=== PATIENT | female | born 1960 | race African-American/Black ===

== ENCOUNTER 2017-06-14 10:39 | Inpatient (IN) | payer MEDICARE, OTHER ==
[~2017-06-14] VITALS: Ht 160 cm; Wt 52.0 kg
[2017-06-14] VITALS (11 sets, daily range): BP systolic 102–152; BP diastolic 60–86; PULSE 76–101; RESP 16; TEMP 98.6–98.8; O2SAT 96–100
[~2017-06-14 10:39] MED LIST: BACT2OIN TOP; CEPH500C3 PO; CYCL-36 PO; HYDR-3533 PO; NEPHRO PO; RENA800T PO; [UNRECOGNIZED DRUG - REMARK]; [UNRECOGNIZED DRUG - REMARK]; bp med
[2017-06-14] MEDS ORDERED: SODIUM CHLORIDE 0.9% FLUSH 10 ML FLUSH IVF PRN (11:00)
[2017-06-14] MEDS ORDERED: MORPHINE SULFATE 8 MG/ML INJ IV PUSH ONE (11:00)
--- NOTE | 2017-06-14 11:27 | RADRPT ---
EXAM DATE/TIME: 06/14/2017 10:46 [facility] COMPARISON: No previous studies available for comparison. INDICATIONS : Chest pain MEDICAL HISTORY : Diabetes mellitus type II. Hypertension SURGICAL HISTORY : None. ENCOUNTER: Initial ACUITY: 2 days PAIN SCORE: 8/10 LOCATION: chest FINDINGS: The lungs are clear without infiltrate, nodule, or mass. There is no appreciable pleural effusion fo r technique. There is borderline cardiomegaly.. CONCLUSION: Borderline cardiomegaly. María Elena Hdez MD on June 14, 2017 at 11:24 Board Certified Radiologist. This report was verified electronically.
[2017-06-14 11:39] LABS: AUTOMATED NEUTROPHIL # 2.4 TH/MM3 (1.8-7.7); BASOPHIL % 0.8 % (0.0-2.0); EOSINOPHIL # 0.1 TH/MM3 (0-0.4); EOSINOPHIL % 2.3 % (0.0-4.0); HEMATOCRIT 47.7 % (35.0-46.0); HEMO FLAGS DIFF FINAL; LYMPH % 31.9 % (9.0-44.0); LYMPHOCYTE # 1.5 TH/MM3 (1.0-4.8); MEAN CELL VOLUME 90.9 FL (80.0-100.0); MEAN CORPUSCULAR HEMOGLOBIN 28.6 PG (27.0-34.0); MEAN CORPUSCULAR HGB CONC 31.4 % (32.0-36.0); MONO % 14.1 % (0.0-8.0); NEUT % 50.9 % (16.0-70.0); PLATELET COUNT 185 TH/MM3 (150-450); RED BLOOD COUNT 5.25 MIL/MM3 (4.00-5.30); RED CELL DISTRIBUTION WIDTH 15.8 % (11.6-17.2); WHITE BLOOD COUNT 4.7 TH/MM3 (4.0-11.0)
[2017-06-14 11:58] LABS: ANION GAP 10 MEQ/L (5-15); BICARBONATE 22.7 MEQ/L (21.0-32.0); BLOOD UREA NITROGEN 64 MG/DL (7-18); CHLORIDE 103 MEQ/L (98-107); CREATINE KINASE 133 U/L (26-192); GLOMERULAR FILTRATION RATE 6 ML/MIN (>89); MAGNESIUM 3.2 MG/DL (1.5-2.5); SODIUM (NA) 136 MEQ/L (136-145)
--- NOTE | 2017-06-14 11:59 | PD ---
HPI Chief Complaint: Chest Pain Time Seen by Provider: 10:49 Travel History International Travel<30 days: No Contact w/Intl Traveler<30days: No Traveled to known affect area: No History of Present Illness HPI Patient is a 57 year old female, with history of ESRD (dialyzed MWF), who comes in complaining of chest pain. She says she feels like someone is squeezing her chest. She says she has never had pain like this before. She says it started early this morning and has not gone away. She denies any SOB. She denies nausea or vomiting. She denies cough, cold, fever, or chills. She has not missed dialysis. PFSH Past Medical History Arthritis: Yes Blood Disorders: No Heart Rhythm Problems: No Cancer: No Cardiovascular Problems: Yes (htn) High Cholesterol: No Chemotherapy: No Chest Pain: No Congestive Heart Failure: Yes Diabetes: Yes Dialysis: Yes Diminished Hearing: No Endocrine: Yes ( accuchecks ac&hs) Genitourinary: No Hepatitis: Yes (HEP C) Hypertension: Yes Immune Disorder: No Kidney Stones: No Musculoskeletal: Yes (c/o back pain - ARTHRITIS RELATED) Neurologic: No Psychiatric: No Reproductive: No Respiratory: No Myocardial Infarction: No Radiation Therapy: No Renal Failure: Yes Thyroid Disease: No ?: Not Menopausal: Yes : 3 Para: 3 Past Surgical History Abdominal Surgery: Yes AICD: No Arteriovenous Shunt: No Cardiac Surgery: No Section: Yes (X 3) Ear Surgery: No Endocrine Surgery: No Eye Surgery: No Genitourinary Surgery: No Gynecologic Surgery: Yes ( X3 LAST IN SEP 1980 ) Hysterectomy: Yes Insulin Pump: No Joint Replacement: No Oral Surgery: No Pacemaker: No Thoracic Surgery: No Other Surgery: Yes (AV FISTULA PLACEMENT (L. ARM) - 2008) Social History Alcohol Use: No Tobacco Use: No Substance Use: No Allergies-Medications (Allergen,Severity, Reaction): Coded Allergies: Latex (Verified Allergy, Severe, 08/22/16) RASH Reported Meds & Prescriptions Reported Meds & Active Scripts Active Reported [bp med ] [unk bp med] DAILY [arthritis pill] 20 Mg DAILY Review of Systems Except as stated in HPI: all other systems reviewed are Neg General / Constitutional: No: Fever, Chills HENT: No: Headaches, Lightheadedness Cardiovascular: Positive: Chest Pain or Discomfort Respiratory: No: Cough, Shortness of Breath Gastrointestinal: No: Nausea, Vomiting Musculoskeletal: No: Myalgias, Edema Skin: No Rash, No Change in Pigmentation Neurologic: No: Weakness, Dizziness Physical Exam Narrative GENERAL: Awake and alert, in no acute distress. SKIN: Focused skin assessment warm/dry. HEAD: Atraumatic. Normocephalic. EYES: Pupils equal and round. No scleral icterus. No injection or drainage. ENT: Mucous membranes pink and moist. NECK: Trachea midline. No JVD. CARDIOVASCULAR: Regular rate and rhythm. No murmur appreciated. RESPIRATORY: No accessory muscle use. Minimal crackles at the right lung base. Breath sounds equal bilaterally. GASTROINTESTINAL: Abdomen soft, non-tender, nondistended. MUSCULOSKELETAL: No obvious deformities. No clubbing. No cyanosis. No edema. fistula in left arm. NEUROLOGICAL: Awake and alert. No obvious cranial nerve deficits. Motor grossly within normal limits. Normal speech. PSYCHIATRIC: Appropriate mood and affect; insight and judgment normal. Data Data Last Documented VS Vital Signs Date Time Temp Pulse Resp B/P Pulse Ox O2 Delivery O2 Flow Rate FiO2 06/14/17 11:13 96 Nasal Cannula 2 06/14/17 11:13 101 16 152/78 06/14/17 10:48 98.7 Orders Electrocardiogram (06/14/17 10:50) Basic Metabolic Panel (Bmp) (06/14/17 10:50) Ckmb (Isoenzyme) Profile (06/14/17 10:50) Complete Blood Count With Diff (06/14/17 10:50) Magnesium (Mg) (06/14/17 10:50) Prothrombin Time / Inr (Pt) (06/14/17 10:50) Act Partial Throm Time (Ptt) (06/14/17 10:50) Troponin I (06/14/17 10:50) Chest, Single Ap (06/14/17 10:50) Ecg Monitoring (06/14/17 10:50) Bilateral Bp Monitoring (06/14/17 10:50) Iv Access Insert/Monitor (06/14/17 10:50) Oximetry (06/14/17 10:50) Oxygen Administration (06/14/17 10:50) Sodium Chloride 0.9% Flush (Ns Flush) (06/14/17 11:00) Morphine Inj (Morphine Inj) (06/14/17 11:00) CKMB (06/14/17 11:05) CKMB% (06/14/17 11:05) Consult Cardiology (06/14/17 ) Heparin Infusion DAMIÁN.Q1H (06/14/17 12:08) Heparin Inj (Heparin Inj) (06/14/17 12:15) Heparin Inj (Heparin Inj) (06/14/17 18:15) Heparin Inj (Heparin Inj) (06/14/17 18:15) Heparin-D5w Inj (Heparin-D5w Inj) (06/14/17 12:15) Cbc No Diff, Includes Plts (06/17/17 06:00) Act Partial Throm Time (Ptt) (06/14/17 19:08) Occult Blood (Hemoccult) Stool (06/14/17 12:08) Ckmb (Isoenzyme) Profile (06/14/17 13:05) Nitroglycerin Sl (Nitrostat Sl) (06/14/17 12:30) Sodium Polysty Sulfate Liq (Kayexalate L (06/14/17 12:30) Admit Order (Ed Use Only) (06/14/17 ) Labs Laboratory Tests Test 06/14/17 06/14/17 11:05 12:05 White Blood Count 4.7 TH/MM3 Red Blood Count 5.25 MIL/MM3 Hemoglobin 15.0 GM/DL Hematocrit 47.7 % Mean Corpuscular Volume 90.9 FL Mean Corpuscular Hemoglobin 28.6 PG Mean Corpuscular Hemoglobin 31.4 % Concent Red Cell Distribution Width 15.8 % Platelet Count 185 TH/MM3 Mean Platelet Volume 10.0 FL Neutrophils (%) (Auto) 50.9 % Lymphocytes (%) (Auto) 31.9 % Monocytes (%) (Auto) 14.1 % Eosinophils (%) (Auto) 2.3 % Basophils (%) (Auto) 0.8 % Neutrophils # (Auto) 2.4 TH/MM3 Lymphocytes # (Auto) 1.5 TH/MM3 Monocytes # (Auto) 0.7 TH/MM3 Eosinophils # (Auto) 0.1 TH/MM3 Basophils # (Auto) 0.0 TH/MM3 CBC Comment DIFF FINAL Differential Comment Sodium Level 136 MEQ/L Potassium Level 6.4 MEQ/L Chloride Level 103 MEQ/L Carbon Dioxide Level 22.7 MEQ/L Anion Gap 10 MEQ/L Blood Urea Nitrogen 64 MG/DL Creatinine 8.73 MG/DL Estimat Glomerular Filtration 6 ML/MIN Rate Random Glucose 152 MG/DL Calcium Level 9.8 MG/DL Magnesium Level 3.2 MG/DL Total Creatine Kinase 133 U/L Creatine Kinase MB 15.1 NG/ML Troponin I 1.65 NG/ML Prothrombin Time 12.1 SEC Prothromb Time International 1.1 RATIO Ratio Activated Partial 27.3 SEC Thromboplast Time MDM Medical Decision Making Medical Screen Exam Complete: Yes Emergency Medical Condition: Yes Medical Record Reviewed: Yes Interpretation(s) ECG shows NSR at 99. 1mm ST depression in leads I, II, V4-V6. Differential Diagnosis ACS versus NSTEMI versus STEMI Narrative Course Patient is a 57-year-old female comes in complaining of chest pain. Exam shows no acute abnormalities. IV established, labs sent. Patient connected to the attending psychiatrist. Patient received 162 mg of aspirin by EMS prior to arrival. ECG shows signs of ischemia, no STEMI. Labs show a troponin of 1.65. Patient started on heparin. I spoke with Dr. Dowd of cardiology who recommends repeating CK-MB and 2 hours. If this goes up, or her chest pain worsens, he'll consider taking her to the catheter lab. Patient given nitroglycerin and morphine for pain. Patient has a potassium of 6.4. Nephrology consulted for dialysis. She was given Kayexalate in the meantime. Patient admitted for further management. Diagnosis Primary Impression: NSTEMI (non-ST elevated myocardial infarction) Additional Impression: Hyperkalemia Admitting Information Admitting Physician Requests: Admit Condition: Stable Veronica Guardado MD Jun 14, 2017 11:59
[2017-06-14 12:00] LABS: POTASSIUM 6.4 MEQ/L (3.5-5.1)
[2017-06-14 12:14] LABS: CKMB 15.1 NG/ML (0.5-3.6)
[2017-06-14] MEDS ORDERED: HEPARIN-D5W INJ 250 ML IV SCH (12:15)
[2017-06-14] MEDS ORDERED: HEPARIN SODIUM - IV 10,000 UNITS/10 ML VIAL IV ONE (12:15)
[2017-06-14] MEDS ORDERED: SODIUM POLYSTYRENE SULFONATE SUSP 15 GM/60 ML CUP PO ONE (12:30)
[2017-06-14] MEDS ORDERED: NITROGLYCERIN 0.4 MG SL 25 TABS/BTL SL PRN ×3 (12:30→13:30)
[2017-06-14 12:32] LABS: APTT (PATIENT) 27.3 SEC (24.3-30.1); INTERNATIONAL NORMALIZED RATIO 1.1 RATIO; PROTHROMBIN TIME - PATIENT 12.1 SEC (9.8-11.6)
[2017-06-14] MEDS ORDERED: ONDANSETRON HCL 4 MG/2 ML VIAL IV PRN ×2 (13:00→13:30)
[2017-06-14] MEDS ORDERED: SODIUM CHLORIDE 0.9% FLUSH 10 ML FLUSH IV FLUSH PRN ×2 (13:00→13:30)
[2017-06-14] MEDS ORDERED: NITROGLYCERIN 2% OINT 1 GM PACKET TOP PRN (13:00)
--- NOTE | 2017-06-14 13:12 | HHI.HP ---
[facility] Service Family Medicine Primary Care Physician Snehal (Zen) MD Michi Admission Diagnosis NSTEMI Diagnoses: International Travel<30 Days: No Contact w/Intl Traveler<30days: No Known Affected Area: No History of Present Illness Patient is a 57 year old female with past history of ESRD (on dialysis MWF) and diabetes who complains of chest pain. She states the pain started at 1:30am, was a sharp pain in the center of her chest which did not radiate. Pain persisted until the morning which prompted her to come into the ED. No pain in left arm or jaw. She noted excessive sweating, nausea, hot and cold intolerance , a brief dimming of her vision, and shortness of breath. No vomiting, fever, chills, change in bowel habits, change in urinary habits, headache, dizziness, lightheadedness, weakness, numbness, tingling, current blurry vision/diplopia/ other change in vision. Patient states that at her last dialysis visit labs were drawn and were normal at that time. Patient also notes healing left foot wound, previously debrided approximately 6 months ago at a different hospital. She said there was "no bone infection" at the time. She states that the wound is currently mildly painful, not hot. The patient alerted us that she has been packing as well as changing her foot dressing every 3 days for the past 6 months. Review of Systems Constitutional: COMPLAINS OF: Diaphoretic episodes, Chills, DENIES: Fatigue, Fever, Weight gain, Weight loss, Dizziness, Change in appetite Endocrine: COMPLAINS OF: Heat/cold intolerance, DENIES: Abnorml menstrual pattern (S/P hysterectomy), Polydipsia, Polyuria, Polyphagia Eyes: COMPLAINS OF: Vision loss ("dimming" once last night), DENIES: Blurred vision, Diplopia, Eye inflammation, Eye pain, Photosensitivity, Double Vision Ears, nose, mouth, throat: DENIES: Tinnitus, Hearing loss, Vertigo, Nasal discharge, Oral lesions, Throat pain, Ear Pain, Running Nose, Epistaxis, Sinus Pain Respiratory: COMPLAINS OF: Shortness of breath (last night), DENIES: Apneas, Cough, Snoring, Wheezing, Hemoptysis, Sputum production Cardiovascular: COMPLAINS OF: Chest pain, DENIES: Palpitations, Syncope, Dyspnea on Exertion, PND, Lower Extremity Edema, Orthopnea Gastrointestinal: COMPLAINS OF: Nausea (last night), DENIES: Abdominal pain, Black stools, Bloody stools, Constipation, Diarrhea, Vomiting Genitourinary: DENIES: Abnormal vaginal bleeding, Dysmenorrhea, Urinary frequency, Urinary incontinence, Urgency, Hematuria, Dysuria, Nocturia Musculoskeletal: DENIES: Joint pain, Muscle aches, Stiffness, Joint Swelling Hematologic/lymphatic: DENIES: Lymphadenopathy Neurologic: DENIES: Abnormal gait, Headache, Localized weakness, Paresthesias Past Family Social History Past Medical History ESRD MWF dialysis HTN Hepatitis C (stated she was on "antibiotics" possibly an antiviral for 7-8 months for this) DM II (non insulin dependent) Hyperparathyroidism Rheumatoid arthritis Past Surgical History Hysterectomy in the 80s Left foot debridement ~ 6months ago Allergies: Coded Allergies: Latex (Verified Allergy, Severe, 08/22/16) RASH Family History Mom - , ESRD, Emphysema Dad- , heart attack @ 66 Sister - cancer, recurrent unknown type Brother - on Chemo for cancer - unknown type 2 brothers and 1 sister healthy. Social History ETOH: Does not drink Smoking: Denies ever smoking Drugs: Denies any illicit drug use Physical Exam Vital Signs Vital Signs Date Time Temp Pulse Resp B/P Pulse Ox O2 Delivery O2 Flow Rate FiO2 06/14/17 11:13 96 Nasal Cannula 2 06/14/17 11:13 101 16 152/78 96 Nasal Cannula 2 06/14/17 10:48 98.7 99 16 152/78 100 Physical Exam GENERAL: This is a well-nourished, well-developed patient, in no apparent distress. SKIN: No rashes, ecchymoses. Cool and dry. Large ulcer on lateral plantar surface of left foot. Extends approximately 5 cm posterior to anterior. Extends approximately 2 cm lateral to distal on plantar surface at some points, irregular shape. Ulcer has obvious packing contained in it, and was initially wrapped in what appeared to be an old triangle bandage. Serosanguineous fluid noted on dressing. Mildly tender to palpation. No blood or purulent discharge. HEAD: Atraumatic. Normocephalic. No temporal or scalp tenderness. EYES: Pupils equal round and reactive. Extraocular motions intact. No scleral icterus. No injection or drainage. ENT: Nose without bleeding, purulent drainage or septal hematoma. Throat without erythema, tonsillar hypertrophy or exudate. Uvula midline. Airway patent. NECK: Trachea midline. No JVD or lymphadenopathy. Supple, nontender, no meningeal signs. CARDIOVASCULAR: Regular rate and rhythm without murmurs, gallops, or rubs. RESPIRATORY: Clear to auscultation. Breath sounds equal bilaterally. No wheezes , rales, or rhonchi. GASTROINTESTINAL: Abdomen soft, non-tender, nondistended. No hepato-splenomegaly , or palpable masses. No guarding. MUSCULOSKELETAL: Extremities without clubbing, cyanosis, or edema. No joint tenderness, effusion, or edema noted. No calf tenderness. Strong equal 2+ pedal pulses, and PT pulses. NEUROLOGICAL: Awake and alert. Motor and sensory grossly within normal limits. Five out of 5 muscle strength in all muscle groups. Normal speech. Sensation intact and equal bilaterally in all 4 extremities. Laboratory Laboratory Tests Test 06/14/17 06/14/17 11:05 12:05 White Blood Count 4.7 Red Blood Count 5.25 Hemoglobin 15.0 Hematocrit 47.7 Mean Corpuscular Volume 90.9 Mean Corpuscular Hemoglobin 28.6 Mean Corpuscular Hemoglobin 31.4 Concent Red Cell Distribution Width 15.8 Platelet Count 185 Mean Platelet Volume 10.0 Neutrophils (%) (Auto) 50.9 Lymphocytes (%) (Auto) 31.9 Monocytes (%) (Auto) 14.1 Eosinophils (%) (Auto) 2.3 Basophils (%) (Auto) 0.8 Neutrophils # (Auto) 2.4 Lymphocytes # (Auto) 1.5 Monocytes # (Auto) 0.7 Eosinophils # (Auto) 0.1 Basophils # (Auto) 0.0 CBC Comment DIFF FINAL Differential Comment Sodium Level 136 Potassium Level 6.4 Chloride Level 103 Carbon Dioxide Level 22.7 Anion Gap 10 Blood Urea Nitrogen 64 Creatinine 8.73 Estimat Glomerular Filtration 6 Rate Random Glucose 152 Calcium Level 9.8 Magnesium Level 3.2 Total Creatine Kinase 133 Creatine Kinase MB 15.1 Troponin I 1.65 Prothrombin Time 12.1 Prothromb Time International 1.1 Ratio Activated Partial 27.3 Thromboplast Time Result Diagram: 06/14/17 1105 06/14/17 1105 Assessment and Plan Assessment and Plan Patient is a 57 year old female with past history of ESRD and diabetes who complains of chest pain.The pain started at 1:30am, was a sharp pain in the center of her chest which did not radiate. No pain in left arm or jaw. Noted excessive sweating, nausea, hot and cold intolerance, a brief dimming of her vision, and shortness of breath during the beginning of the chest pain. No vomiting, fever, chills, change in bowel habits, change in urinary habits, headache, dizziness, lightheadedness, weakness, numbness, tingling, current blurry vision/diplopia/other change in vision. Patient states that at her last dialysis visit labs were drawn and were normal at that time. Potassium 6.4 in the ED, Troponins 1.65 and creatinine 8.73 which is similar to past reported creatinines (7.88 in 08/22/16). Incidentally notes healing left foot wound, previously debrided approximately 6 months ago at a different hospital. She said there was "no bone infection" at the time. She states that the wound is currently mildly painful, not hot. Ulcer large in size with packing in place which patient states she changes every 3 days for the past 6 months. Problem List: (1) NSTEMI (non-ST elevated myocardial infarction) Status: Acute Plan: Resting chest pain for ~ 10 hours. No significant improvement. Per ED note, no ST elevation noted on ECG in ED. Troponin 1.65 at admission. Troponins were to be drawn Q6 x3. Second set of troponins delayed due to the patient being in dialysis at the time of the blood draw. Contacted Dialysis which confirmed her troponins could not be obtained at that time. * Likely catheterization, F/U cardiology recommendations * F/U troponins * ASA * Morphine for pain control * follow up CKMB * Nitroglycerin (2) Hyperkalemia Status: Acute Plan: ESRD and hyperkalemia. * Will receive dialysis tonight * F/U potassium and treat as needed (3) Ulcer of left foot Status: Acute Plan: 6 month old ulcer of left foot which had been debrided at different hospital. Patient reported that she has been changing the dressing and packing every 3 days. * Maintain clean and dry * F/U wound care (4) ESRD (end stage renal disease) on dialysis Status: Acute Plan: ESRD with creatinine 8.73 and hyperkalemia on admission. * Dialysis tonight * F/U nephrology recommendations (5) Diabetes type 2, controlled Status: Acute Plan: Diabetes type 2, non insulin dependent, reported as well controlled. * Discontinue home medications * low dose sliding scale insulin (6) Hypertension Status: Acute Plan: Hypertension at home, controlled with home medications. Currently ongoing NSTEMI * Continue home amlodipine 5mg if elevated * F/U cardiology recommendations (7) FEN Status: Acute Plan: Fluids - NPO until catheterizations Electrolytes - hyperkalemia and ESRD, F/U and correct as necessary Nutrition -NPO until catheterization Code -Full DVT proph - patient on heparin drip, SCDs - Consider additional chemoprophylaxis following discontinuation Physician Certification 2 Midnight Certification Type: Admission for Inpatient Services Order for Inpatient Services The services are ordered in accordance with Medicare regulations or non- Medicare payer requirements, as applicable. In the case of services not specified as inpatient-only, they are appropriately provided as inpatient services in accordance with the 2-midnight benchmark. Estimated LOS (days): 2 2 days is the estimated time the patient will need to remain in the hospital, assuming treatment plan goals are met and no additional complications. Post-Hospital Plan: Not yet determined Baudilio Bain MD R1 Jun 14, 2017 13:12
[2017-06-14] MEDS ORDERED: SODIUM CHLOR 0.9% 1000 ML INJ 1,000 ML IV PRN ×3 (13:28)
[2017-06-14] MEDS ORDERED: GENTAMICIN SULFATE (DIALYSIS USE ONLY) 20 MG/2 ML VIAL IV PRN (13:30)
[2017-06-14] MEDS ORDERED: HEPARIN SODIUM - IV 10,000 UNITS/10 ML VIAL IVF PRN (13:30)
[2017-06-14] MEDS ORDERED: cloNIDine HCL 0.1 MG TAB PO PRN (13:30)
[2017-06-14] MEDS ORDERED: HEPARIN SODIUM - IV 10,000 UNITS/10 ML VIAL PRN (13:30)
[2017-06-14] MEDS ORDERED: ACETAMINOPHEN 325 MG TAB PO PRN (13:30)
[2017-06-14] MEDS ORDERED: SODIUM BICARBONATE 8.4% INJ 50 MEQ/50 ML SYR IV PUSH ONE (13:30)
[2017-06-14] MEDS ORDERED: ALBUMIN HUMAN 25% 25 GM/100 ML BAGP IV PRN (13:30)
[2017-06-14] MEDS ORDERED: MANNITOL 12.5 GM/50 ML VIAL IV PRN (13:30)
[2017-06-14] MEDS ORDERED: DEXTROSE 50% IN WATER 50 ML VIAL(D50) IV PRN (14:00)
[2017-06-14] MEDS ORDERED: METOPROLOL TARTRATE 25 MG TAB PO ONE (14:00)
[2017-06-14] MEDS ORDERED: ASPIRIN EC 81 MG TABEC PO ONE (14:00)
[2017-06-14] MEDS ORDERED: METOPROLOL TARTRATE 25 MG TAB PO SCH (14:00)
[2017-06-14] MEDS ORDERED: GLUCAGON 1 MG/ML VIAL OTHER PRN (14:00)
[2017-06-14] MEDS: METOPROLOL TARTRATE 5 MG/5 ML VIAL IV PUSH SCH ×3 (14:00→14:10)
--- NOTE | 2017-06-14 14:11 | RADRPT ---
EXAM DATE/TIME: 06/14/2017 13:52 [facility] COMPARISON: No previous studies available for comparison. INDICATIONS : Left foot pain, inflammation, and open wounds. MEDICAL HISTORY : Diabetes mellitus type II. SURGICAL HISTORY : None. ENCOUNTER: Initial ACUITY: 1 month PAIN SCORE: 7/10 LOCATION: Left foot FINDINGS: No definite fractures, or dislocations are identified. No definite lytic or sclerotic lesion is seen . Extensive osteopenia is seen. There are degenerative changes within multiple joints mainly the inte rphalangeal joints and the first metatarsophalangeal joint. Chronic atherosclerotic calcifications ar e seen involving the visualized arteries. CONCLUSION: Chronic changes and no evidence for acute fracture. María Elena Hdez MD on June 14, 2017 at 14:08 Board Certified Radiologist. This report was verified electronically.
[2017-06-14 14:35] LABS: HDL CHOLESTEROL 79.4 MG/DL (40.0-60.0)
[2017-06-14 15:27] LABS: CREATINE KINASE 143 U/L (26-192)
[2017-06-14] MEDS: GELATIN 12 MM/7 MM FOAM TOP PRN (15:33)
[2017-06-14 15:49] LABS: CKMB 23.1 NG/ML (0.5-3.6)
--- NOTE | 2017-06-14 15:52 | MB ---
cc: CURLY GANT MD DATE OF CONSULTATION 06/14/2017 REASON FOR CONSULTATION End-stage renal disease on hemodialysis for management with hyperkalemia. HISTORY OF PRESENT ILLNESS This is a 57-year-old female with past medical history of hypertension, end-stage renal disease on hemodialysis three times per week Thursday, Thursday and Thursday, diabetes mellitus, came with complaint of retrosternal chest pain. I was called to see the patient for management of dialysis and hyperkalemia. The patient has been on hemodialysis Thursday, Thursday and Thursday. She has been following with Dr. Rinku Borden and she had the last treatment on Thursday and last night the patient started having this retrosternal chest pain which was dull, not radiating, in the middle of the chest and was present at rest and was increasing gradually. She has mild cough. There no history of fever. She has vomited once last night. There is no history of abdominal pain. No shortness of breath. PAST MEDICAL HISTORY 1. Hypertension. 2. Diabetes mellitus. 3. Chronic anemia. 4. End-stage renal disease on hemodialysis three times per week. SOCIAL HISTORY There is no history of smoking. FAMILY HISTORY Noncontributory. REVIEW OF SYSTEMS There is no history of fever. No headache, dizziness. She has this retrosternal chest pain started last night at rest and was getting worse. She has no palpitation. No shortness of breath. Mild cough and she vomited once. There is no history of abdominal pain. ALLERGIES She has no known drug allergies. MEDICATIONS Currently she is on following medications: 1. Aspirin 162 mg daily. 2. Nitroglycerin. 3. . 4. Metoprolol 25 mg q. 8-hour. 5. Insulin aspart sliding scale. 6. Heparin IV infusion. 7. Morphine as needed. 8. Zofran as needed. PHYSICAL EXAMINATION GENERAL: On examination the patient is awake, alert. She is not in acute distress. VITAL SIGNS: Her last blood pressure 149/82, temperature 97.5, oxygen saturation on 2 liters of 99-100%. HEENT: Pulse equally reacting to light. Nonicteric sclerae. Conjunctivae normal. NECK: Supple. JVD is not elevated. LUNGS: The patient has bilateral good air entry with occasional wheezing. HEART: S1-S2. Regular rhythm. ABDOMEN: Soft, lax. There is no tenderness. Bowel sounds positive. EXTREMITIES: There is mild edema in the legs and left foot sole the skin is very dry and has some superficial crusting lesion. LABORATORY DATA WBC count is 4.7, hemoglobin 15.0 with a platelet count 185. Sodium 132, potassium 6.4, chloride 103, bicarb 22.7, BUN 64, creatinine 8.7. Calcium 9.8, phosphorus 3.2. Troponin I is 1.65. Creatinine kinase 133. Cholesterol 181, LDL is 86, HDL is 79.4. INR 1.1, PTT is 27.3. IMAGING STUDIES The patient has chest x-ray done which shows borderline cardiomegaly. Lung diallo clear. Foot x-ray was done which shows chronic changes with no evidence for acute phase ASSESSMENT/PLAN 1. Chest pain rule out acute cardiac ischemia. 2. End-stage renal disease on hemodialysis. 3. Hyperkalemia. 4. History of hypertension. 5. Diabetes mellitus. The patient has elevated troponin and possibly has [id number] MA seen by the cardiology and started on IV heparin. The patient has a high potassium although she was dialyzed on Thursday. We will dialyze her today again because of hyperkalemia. She is not in fluid overload status. Thank you for the consultation. The patient will be followed by Dr. Ahumada from tomorrow. MD MIGUEL Guerrero/JOY /2:57 PM /3:36 PM
[2017-06-14] MEDS: INSULIN ASPART SUPPLEMENTAL SCALE SQ SCH ×2 (16:00→21:00)
[2017-06-14] MEDS: NITROGLYCERIN 2% OINT 1 GM PACKET TOPICAL SCH ×2 (17:45→22:38)
--- NOTE | 2017-06-14 18:08 | MB ---
cc: KALPESH FIORE M.D. DATE OF CONSULTATION: 06/14/2017. REASON FOR CONSULTATION: HISTORY OF PRESENT ILLNESS: Arlyn is a very pleasant 57-year lady with history of end-stage renal disease on dialysis who presents with new onset chest pain as she has never had before described as a squeezing sensation moderate to severe occurring at rest, not associated with dyspnea. She otherwise denies any fever, chills, cough, GI or bleeding, paroxysmal nocturnal dyspnea, orthopnea, syncope or dizziness. She has not missed dialysis as well. PAST MEDICAL HISTORY: Her past medical history includes: 1. Arthritis. 2. Hypertension. 3. Diabetes. 4. Hepatitis C. 5. Hysterectomy. 6. AV fistula placed in 2008. SOCIAL HISTORY: Denies tobacco or alcohol use. ALLERGIES: LATEX. MEDICATIONS PRIOR TO ADMISSION: Unknown blood pressure pill and unknown arthritis pill. MEDICATIONS IN THE HOSPITAL: 1. Aspirin 162 milligrams daily. 2. Metoprolol 25 q. 8 hours. 3. Heparin IV bolus and drip. 4. Two inches of Nitro paste q. 6 hours. PHYSICAL EXAMINATION: VITAL SIGNS: Blood pressure 149/82, pulse 88, respiratory rate 16, temperature 98.7. GENERAL: She is alert and oriented times three and in no acute distress and receiving dialysis. She is currently chest pain-free. NECK: The neck is supple. No jugular venous distention. No bruits. CARDIOVASCULAR EXAM: S1-S2. No murmurs, rubs or gallops. LUNGS: Clear to auscultation bilaterally. ABDOMEN: The abdomen is soft, nontender and nondistended with positive bowel sounds. EXTREMITIES: No lower extremity edema. LABORATORY DATA: White count 4.7, hemoglobin 15.0, hematocrit 47.7, platelet count 185,000. Sodium 136, potassium 6.4, chloride 103, bicarb 22.7, BUN 64, Creatinine 8.73, glucose 152. Troponin is 1.65. CK is 133. Repeat CK is 143. LDL is 86. HDL is 79.4. INR is 1.1. IMAGING STUDIES: Chest x-ray shows borderline cardiomegaly. She has a foot x-ray too showing chronic changes and no evidence for acute fracture. EKGS: EKG shows normal sinus rhythm at 96 beats per minute. There are ischemic anterolateral changes and inferior ischemia as well. FINAL DIAGNOSIS: 1. Unstable angina 2. [place] [employer] class IV angina. 3. End-stage renal failure. 4. Hypertension. 5. Hyperkalemia. 6. Hepatitis C. 7. Diabetes. 8. Polycythemia. 9. NSTEMI. DISCUSSION: Left heart catheterization is medically necessary due to new onset cardiac symptoms of severe resting chest pain consistent with acute coronary syndrome, unstable angina, [place] [employer] class IV angina. She has a coronary artery disease risk factor equivalent given her end-stage renal failure and diabetes. She has a high pretest probability for significant coronary disease in particular given the resting ischemic changes on her EKG. She has responded well to IV heparin, Lopressor, nitro paste. Recommend: 1. Continue aspirin 162 mg daily. 2. Metoprolol 25 q. 8 hours. 3. Two inches of nitro paste. 4. Will defer REAGAN inhibitor and/or ARB to renal, which in the short-term should be held due to the hyperkalemia, for which the patient is undergoing hemodialysis currently. MD SP Fox/EVY /5:54 PM /6:02 PM
[2017-06-14] MEDS ORDERED: HEPARIN SODIUM - IV 10,000 UNITS/10 ML VIAL IV PRN ×2 (18:15)
--- NOTE | 2017-06-14 18:55 | EKG ---
Date Performed: 06/14/2017 Time Performed: 10:57:34 PTAGE: 57 years EKG: Sinus rhythm INFERIOR AND LATERAL ST/T ABNORMALITY, CONSIDER ISCHEMIA PREVIOUS TRACING : 06/09/2014 09.40 Compared to previous tracing, inferior and lateral ST /T changes are now present. DOCTOR: Billy Martinez Interpretating Date/Time 06/14/2017 18:54:53
[2017-06-14] MEDS ORDERED: SODIUM CHLORIDE 0.9% FLUSH 10 ML FLUSH IV FLUSH SCH (21:00)
[2017-06-14 22:02] LABS: APTT (PATIENT) 52.7 SEC (24.3-30.1)
[2017-06-14] MEDS: METOPROLOL TARTRATE 25 MG TAB PO SCH (22:31)
[2017-06-14] MEDS: MORPHINE SULFATE 4 MG/ML INJ IV PRN (22:36)
[2017-06-15] VITALS (24 sets, daily range): BP systolic 92–131; BP diastolic 59–79; PULSE 62–86; RESP 16–20; TEMP 97.8–98.5; O2SAT 92–100
--- NOTE | 2017-06-15 01:38 | HHI.PR ---
Addendum to Inpatient Note Addendum Reason: Additional Documentation Additional Information Lab result with elevated Troponin to 18.90. Pt is currently asymptomatic with no chest pain. She last had chest pain at approximately 10pm. Dr. Dowd was called and notified of this increase. Anticipate Left heart Catheterization in the morning. Kandis Montez MD R2 Jun 15, 2017 01:38
[2017-06-15 01:40] LABS: CKMB 42.8 NG/ML (0.5-3.6)
[2017-06-15] MEDS: MORPHINE SULFATE 4 MG/ML INJ IV PRN ×2 (04:59→19:15)
[2017-06-15] MEDS: INSULIN ASPART SUPPLEMENTAL SCALE SQ SCH ×4 (05:47→20:35)
[2017-06-15] MEDS: NITROGLYCERIN 2% OINT 1 GM PACKET TOPICAL SCH ×4 (06:10→22:42)
[2017-06-15] MEDS: METOPROLOL TARTRATE 25 MG TAB PO SCH ×3 (06:11→22:00)
[2017-06-15 06:30] LABS: AUTOMATED NEUTROPHIL # 2.3 TH/MM3 (1.8-7.7); BASOPHIL # 0.1 TH/MM3 (0-0.2); BASOPHIL % 1.3 % (0.0-2.0); EOSINOPHIL # 0.2 TH/MM3 (0-0.4); EOSINOPHIL % 4.4 % (0.0-4.0); HEMATOCRIT 46.9 % (35.0-46.0); HEMO FLAGS DIFF FINAL; LYMPH % 30.7 % (9.0-44.0); LYMPHOCYTE # 1.4 TH/MM3 (1.0-4.8); MEAN CELL VOLUME 90.1 FL (80.0-100.0); MEAN CORPUSCULAR HEMOGLOBIN 28.9 PG (27.0-34.0); MEAN CORPUSCULAR HGB CONC 32.1 % (32.0-36.0); MONO % 14.3 % (0.0-8.0); NEUT % 49.3 % (16.0-70.0); PLATELET COUNT 153 TH/MM3 (150-450); RED BLOOD COUNT 5.21 MIL/MM3 (4.00-5.30); RED CELL DISTRIBUTION WIDTH 15.2 % (11.6-17.2); WHITE BLOOD COUNT 4.7 TH/MM3 (4.0-11.0)
[2017-06-15 06:43] LABS: APTT (PATIENT) 37.3 SEC (24.3-30.1)
[2017-06-15 07:14] LABS: CKMB 35.2 NG/ML (0.5-3.6)
[2017-06-15] MEDS ORDERED: ASPIRIN EC 81 MG TABEC PO SCH (09:00)
--- NOTE | 2017-06-15 11:31 | HHI.NPPN ---
Subjective Renal Failure: Chronic, End Stage Renal Disease Interval History She is due today for dialysis. Troponin has elevated, may require cardiac cath today. ([facility]) Review of Systems Cardiovascular Cardiac: Chest Pain ([facility] [place]) Skin Skin: Ulcers ([facility]) Objective Data Data 06/14/17 06/15/17 18:59 06:59 Intake Total 300 ml Output Total 3500 ml 0 ml Balance -3500 ml 300 ml Intake Oral 300 ml Output Urine Total 0 ml Stool Total 0 ml Hemodialysis 3500 ml Vital Signs Date Time Temp Pulse Resp B/P Pulse Ox O2 Delivery O2 Flow Rate FiO2 06/15/17 11:00 98.0 71 20 92/62 98 06/15/17 11:00 69 06/15/17 10:00 71 06/15/17 09:00 80 06/15/17 08:00 78 06/15/17 07:25 92 21 06/15/17 07:00 98.5 86 20 128/79 100 06/15/17 07:00 70 06/15/17 04:39 72 16 100/66 100 06/15/17 03:00 67 06/15/17 02:00 66 06/15/17 01:00 68 06/15/17 00:38 97 21 06/15/17 00:00 68 06/14/17 23:00 84 16 102/64 96 06/14/17 23:00 82 06/14/17 22:00 84 06/14/17 21:00 80 06/14/17 20:00 90 06/14/17 19:00 98.8 81 16 127/79 98 06/14/17 19:00 76 06/14/17 18:50 98.6 89 16 132/60 98 06/14/17 14:16 88 16 149/82 100 Nasal Cannula 2 06/14/17 13:45 99 Nasal Cannula 2.00 06/14/17 13:00 92 16 149/86 98 Nasal Cannula 2 ([facility]) -: 06/15/17 0450 06/14/17 1105 Microbiology 06/15/17 Aerobic Blood Culture, Received Pending 06/15/17 Anaerobic Blood Culture, Received Pending 06/15/17 Aerobic Blood Culture, Received Pending 06/15/17 Anaerobic Blood Culture, Received Pending Imaging Last 72 hours Impressions Chest X-Ray 06/14/17 1050 Signed Impressions: Service Date/Time: Wednesday, June 14, 2017 10:46 - CONCLUSION: Borderline cardiomegaly. María Elena Hdez MD Foot X-Ray 06/14/17 0000 Signed Impressions: Service Date/Time: Wednesday, June 14, 2017 13:52 - CONCLUSION: Chronic changes and no evidence for acute fracture. María Elena Hdez MD Drip Comment heparin ([facility] [employer]) Physical Exam General Appearance: Well Developed, Well Nourished, No Acute Distress, Comfortable ( [facility]) Eyes Eye Exam: Pupils Equal ([facility]) Throat Throat Exam: Oral Mucosa Pine Knot & Moist ([facility]) Pulmonary Resp Exam: Clear Bilaterally, Breath Sounds Equal ([facility] [employer]) Cardiology CV Exam: Regular, Normal Sinus Rhythm ([facility] [employer]) Gastrointestinal/Abdomen GI Exam: Soft, Non-Tender, Bowel Sounds Present ([facility] [employer]) Musculoskeletal MS Exam: Normal Tone ([facility] [employer]) Integumentary Skin Exam: Warm, Dry Skin Remarks ulcer plantar surface ([facility]) Extremeties Extremities Exam: No Edema, Pedal Pulses Palpable Extremeties Remarks AVF + thrill/bruit ([facility],[employer]) Neurologic Neuro Exam: Alert, Awake, Oriented, Speech Clear, Moving All Extremities ( [facility] [employer]) Assessment/Plan Discussed Condition With: Patient Problem List: (1) ESRD (end stage renal disease) on dialysis Plan: typical [facility] HD schedule has urgent HD yesterday for hyperkalemia, 3500 ml UF avoid IVF high protein diet when no longer NPO monitor electrolytes intermittently (2) NSTEMI (non-ST elevated myocardial infarction) Plan: troponin rising cardiology following on heparin gtt and Nitro paste likely to have cardiac cath today (3) Diabetes type 2, controlled Plan: continue insulin support, monitor glucose (4) Hypertension Plan: home medications have been resumed (5) Hyperkalemia Plan: dialyzed emergently yesterday repeat labs have been ordered continue HD as ordered (6) Ulcer of left foot Plan: wound care has been ordered ([place] [place]) Plan patient was seen and examined. She had cardiac cath today, dialysis will be tomorrow and then will be switched back to MWF. We discussed importance of phosphorus control with the patient. (Nazario Ahumada MD) [facility] [place] Jun 15, 2017 11:31 Nazario Ahumada MD Jun 15, 2017 16:36
--- NOTE | 2017-06-15 11:59 | HHI.FPPN ---
Subjective Remarks Patient seen examined this morning. States that she continues to have chest pain which is well controlled by morphine. Denies nausea, vomiting, fever, chills, shortness of breath. Patient states that her left foot, the one with a 6 month ulcer, is starting to become itchy. No complaint of increased drainage, pus, increased warmth or pain. Denies nausea, vomiting, fever, chills, shortness of breath, change in bowel habits, change in urinary habits. (Baudilio Bain MD R1) Objective Vitals Vital Signs Date Time Temp Pulse Resp B/P Pulse Ox O2 Delivery O2 Flow Rate FiO2 06/15/17 11:00 98.0 71 20 92/62 98 06/15/17 11:00 69 06/15/17 10:00 71 06/15/17 09:00 80 06/15/17 08:00 78 06/15/17 07:25 92 21 06/15/17 07:00 98.5 86 20 128/79 100 06/15/17 07:00 70 06/15/17 04:39 72 16 100/66 100 06/15/17 03:00 67 06/15/17 02:00 66 06/15/17 01:00 68 06/15/17 00:38 97 21 06/15/17 00:00 68 06/14/17 23:00 84 16 102/64 96 06/14/17 23:00 82 06/14/17 22:00 84 06/14/17 21:00 80 06/14/17 20:00 90 06/14/17 19:00 98.8 81 16 127/79 98 06/14/17 19:00 76 06/14/17 18:50 98.6 89 16 132/60 98 06/14/17 14:16 88 16 149/82 100 Nasal Cannula 2 06/14/17 13:45 99 Nasal Cannula 2.00 06/14/17 13:00 92 16 149/86 98 Nasal Cannula 2 I/O 06/14/17 06/14/17 06/14/17 06/15/17 06/15/17 06/15/17 06:59 14:59 22:59 06:59 14:59 22:59 Intake Total 300 ml Output Total 3500 ml 0 ml Balance -3500 ml 300 ml Intake Oral 300 ml Output Urine Total 0 ml Stool Total 0 ml Hemodialysis 3500 ml (Baudilio Bain MD R1) Result Diagram: 06/15/17 0450 06/14/17 1105 Objective Remarks Physical Exam GENERAL: This is a well-nourished, well-developed patient, in no apparent distress. SKIN: No rashes, ecchymoses. Cool and dry. Large ulcer on lateral plantar surface of left foot. Extends approximately 5 cm posterior to anterior. Extends approximately 2 cm lateral to distal on plantar surface at some points, irregular shape. Large eschar. Ulcer has obvious packing contained in it, wrapped in new sterile gauze. Serosanguineous fluid noted on dressing. Mildly tender to palpation. No blood or purulent discharge. HEAD: Atraumatic. Normocephalic. No temporal or scalp tenderness. EYES: Pupils equal round and reactive. Extraocular motions intact. No scleral icterus. No injection or drainage. ENT: Nose without bleeding, purulent drainage or septal hematoma. Throat without erythema, tonsillar hypertrophy or exudate. Uvula midline. Airway patent. NECK: Trachea midline. No JVD or lymphadenopathy. Supple, nontender, no meningeal signs. CARDIOVASCULAR: Regular rate and rhythm without murmurs, gallops, or rubs. RESPIRATORY: Clear to auscultation. Breath sounds equal bilaterally. No wheezes , rales, or rhonchi. GASTROINTESTINAL: Abdomen soft, non-tender, nondistended. No hepato-splenomegaly , or palpable masses. No guarding. MUSCULOSKELETAL: Extremities without clubbing, cyanosis, or edema. No joint tenderness, effusion, or edema noted. No calf tenderness. Strong equal 2+ pedal pulses, and PT pulses. NEUROLOGICAL: Awake and alert. Motor and sensory grossly within normal limits. Five out of 5 muscle strength in all muscle groups. Normal speech. Sensation intact and equal bilaterally in all 4 extremities. Medications and IVs Current Medications Medications (Trade) Dose Ordered Sig/Diamond Route Start Time Stop Time Status Last Admin (Heparin Inj) 5,000 units UNSCH PRN IV 06/14/17 18:15 Heparin Sodium (Porcine) 2500 units 2,500 units UNSCH PRN IV 06/14/17 18:15 06/15/17 06:56 (Heparin-D5W Inj) 250 ml @ 0 mls/hr TITRATE IV 06/14/17 12:15 06/14/17 12:45 (Morphine Inj) 2 mg Q30M PRN IV 06/14/17 13:00 06/15/17 04:59 Ondansetron HCl 4 mg 4 mg Q6H PRN IV 06/14/17 13:00 (NS 1000 ml Inj) 1,000 ml @ 0 mls/hr Q0M PRN IV 06/14/17 13:28 06/14/17 15:33 Heparin Sodium (Porcine) 8000 units 8,000 units UNSCH PRN IVF 06/14/17 13:30 Sodium Chloride 1,000 ml @ 200 mls/hr Q5H PRN IV 06/14/17 13:28 (NS 1000 ml Inj) 1,000 ml @ 0 mls/hr Q0M PRN IV 06/14/17 13:28 (Mannitol Inj) 12.5 gm UNSCH PRN IV 06/14/17 13:30 (Albumin 25% Inj) 25 gm UNSCH PRN IV 06/14/17 13:30 (NS Flush) 5 ml UNSCH PRN IV FLUSH 06/14/17 13:30 (Heparin Inj) UNSCH PRN .XX 06/14/17 13:30 (Gentamicin (Dialysis) Inj) 20 mg UNSCH PRN IV 06/14/17 13:30 (Zofran Inj) 4 mg UNSCH PRN IV 06/14/17 13:30 (Tylenol) 650 mg UNSCH PRN PO 06/14/17 13:30 (Benadryl) 25 mg UNSCH PRN PO 06/14/17 13:30 (Nitrostat Sl) 0.4 mg UNSCH PRN SL 06/14/17 13:30 (Catapres) 0.1 mg UNSCH PRN PO 06/14/17 13:30 (Gelfoam 12 Mm/7 Mm Top) 1 foam UNSCH PRN TOP 06/14/17 13:30 06/14/17 15:33 (D50w (Vial) Inj) 50 ml UNSCH PRN IV 06/14/17 14:00 (Glucagon Inj) 1 mg UNSCH PRN OTHER 06/14/17 14:00 (Nitroglycerin 2% Oint) 2 inch Q6HR TOPICAL 06/14/17 18:00 06/15/17 11:52 (Ecotrin Ec) 162 mg DAILY PO 06/15/17 09:00 06/15/17 09:28 (Lopressor) 25 mg Q8HR PO 06/14/17 22:00 06/15/17 06:11 (NS Flush) 2 ml UNSCH PRN .XX 06/15/17 14:15 UNV (NS Flush) 2 ml BID .XX 06/15/17 21:00 UNV (Aspirin Chew) 162 mg DAILY PO 06/16/17 09:00 UNV (Plavix) 600 mg ONCE ONCE PO 06/15/17 14:15 06/15/17 14:16 UNV Clopidogrel Bisulfate 75 mg 75 mg DAILY PO 06/16/17 09:00 UNV (Aggrastat Infusion Inj) 250 ml @ 8.82 mls/hr Q24H IV 06/15/17 14:07 06/16/17 08:06 UNV Miscellaneous Information 1 ONCE ONCE XX 06/15/17 14:15 06/15/17 14:16 UNV (Baudilio Bain MD R1) A/P Assessment and Plan Patient is a 57 year old female with past history of ESRD and diabetes who complains of chest pain.The pain started at 1:30am (06/15), was a sharp pain in the center of her chest which did not radiate. No pain in left arm or jaw. Noted excessive sweating, nausea, hot and cold intolerance, a brief dimming of her vision, and shortness of breath during the beginning of the chest pain. No vomiting, fever, chills, change in bowel habits, change in urinary habits, headache, dizziness, lightheadedness, weakness, numbness, tingling, current blurry vision/diplopia/other change in vision. Patient states that at her last dialysis visit labs were drawn and were normal at that time. Potassium 6.4 in the ED, Troponins 1.65 and creatinine 8.73 which is similar to past reported creatinines (7.88 in 08/22/16). Incidentally notes healing left foot wound, previously debrided approximately 6 months ago at a different hospital. She said there was "no bone infection" at the time. She states that the wound is currently mildly painful, not hot. Ulcer large in size with packing in place which patient states she changes every 3 days for the past 6 months. (Baudilio Bain MD R1) Attending Attestation Patients case was dicussed in detail with resident medical team,examination performed, EMR reviewed, agree with Admission, Assessment and Plan, See Orders. (Nabil Salazar MD) Problem List: (1) NSTEMI (non-ST elevated myocardial infarction) Status: Acute Plan: Resting chest pain starting at 1:30 am 06/14. No significant improvement. Per ED note, no ST elevation noted on ECG in ED. Troponin 1.65 at admission, . Troponins were to be drawn Q6 x3. Second set of troponins delayed due to the patient being in dialysis at the time of the blood draw. Contacted Dialysis which confirmed her troponins could not be obtained at that time. * Catheterization this morning, F/U cardiology recommendations * Troponins 1.65 @ 1105, 18.90 @ 0020, 24.00 @ 0450 * ASA 162 mg daily * Morphine for pain control * Metoprolol 25mg q8 * Nitroglycerin (2) Hyperkalemia Status: Acute Plan: ESRD and hyperkalemia. * Dialysis last night * F/U potassium and treat as needed * Nephrology consulted, follow recommendations (3) Ulcer of left foot Status: Acute Plan: 6 month old ulcer of left foot which had been debrided at different hospital. Patient reported that she has been changing the dressing and packing every 3 days. * Maintain clean and dry * Wound care called and advised debridement of large eschar on bottom of foot for better treatment, consulted podiatry. * F/U Podiatry consult (4) ESRD (end stage renal disease) on dialysis Status: Acute Plan: ESRD with creatinine 8.73 and hyperkalemia on admission. * Dialysis tonight * F/U nephrology recommendations (5) Diabetes type 2, controlled Status: Acute Plan: Diabetes type 2, non insulin dependent, reported as well controlled. * Discontinue home medications * low dose sliding scale insulin (6) Hypertension Status: Acute Plan: Hypertension at home, controlled with home medications. Currently ongoing NSTEMI * Continue home amlodipine 5mg if elevated * F/U cardiology recommendations (7) FEN Status: Acute Plan: Fluids - NPO until catheterizations Electrolytes - hyperkalemia and ESRD, F/U and correct as necessary Nutrition -NPO until catheterization Code -Full DVT proph - on plavix, SCDs (Baudilio Bain MD R1) Baudilio Bain MD R1 Jun 15, 2017 11:59 Nabil Salazar MD Jun 15, 2017 18:42
--- NOTE | 2017-06-15 13:23 | PD.WCN.NOT ---
Wound Consult Description: Evaluation of left foot per Tc COREA R2 Communicated with: Odell COREA R1 Recommendation: Podiatry consult for debridement of left lateral/plantar area of unstable eschar. Additional Information: Patient seen on [facility] for wound evaluation of left lateral/plantar surface of foot. Rolled gauze removed from left foot to reveal a full thickness skinloss wound surrounding an island of unstable eschar measuring 6.2cm x 7cm x 0.4cm with minimal serous/sanguinous exudate noted. Packing was noted at 9 o' clock and when removed let it be noted that it was dry and lying in wound bed of ~3cm depth without odor and without active drainage. Periwound is visualized with semi-friable hyperkeratotic tissue and 2 sutures noted distally (one in the unstable eschar and one in the periwound of dried exudate). Patient states the sutures have been there since her surgery last September and she has been cleaning her wound, applying Santyl, and packing wound with packing strip. Sutures were not able to be removed at this time. The open wound and periwound area was cleansed with NS and gauze. A dressing of dry 4x4's were applied over the unstable eschar and moist open wound bed and secured with rolled gauze and tape. Recommended dry unstable eschar debridement to allow for appropriate wound care dressings once wound bed can be visualized. Jaja Le [facility] Jun 15, 2017 13:22
[2017-06-15] MEDS ORDERED: HEPARIN-NS/PF INJ 500 ML ONE (13:30)
[2017-06-15] MEDS ORDERED: MIDAZOLAM HCL 2 MG/2 ML VIAL ONE (13:47)
[2017-06-15] MEDS ORDERED: HEPARIN SODIUM - IV 10,000 UNITS/10 ML VIAL ONE (13:51)
[2017-06-15] MEDS ORDERED: TIROFIBAN INFUSION INJ 250 ML IV ONE (13:59)
[2017-06-15] MEDS ORDERED: CLOPIDOGREL 300 MG TAB ONE ×2 (13:59→14:04)
[2017-06-15] MEDS ORDERED: MISC INFORMATION XX ONE (14:15)
[2017-06-15] MEDS ORDERED: SODIUM CHLORIDE 0.9% FLUSH 10 ML FLUSH PRN (14:15)
--- NOTE | 2017-06-15 14:28 | CATHPROC ---
Clicks for a Cause HIS Report Study Information Study Number Admission Scheduled Start Study Start [id number] Jun 14 2017 12:47PM 06/15/2017 Jun 15 2017 12:29PM [place] Service Cardiac Catheterization Admit Source Facility Department Emergency department [facility] - Information Resources Director Physician and Clinical Staff Initial Arsenio Toro Director Of Recruiting Deana Hernandez,SRIDEVI Recorder Sheela Youngblood RCIS TECH2 Scrub Terrance Rueda RCIS(BS) Procedures Performed Procedure Location (Site) Vessel Name Coronary Angiograms LCA Left Coronary Coronary Angiograms RCA Right Coronary Stent LAD Prox Left Coronary Wire insertion Fem Art (right) Femoral Art Equipment Time Business System Consultant Description Size Mfg Part Number Used/Scraped [id number] 13:53 [employer] WIRE, ASAHI PROWATER 180CM 180CM Used *[id number] TRANSDUCER, TRUWAVE [id number] 13:33 Spayee PANDYA * Used W/STOCKCOCK *[id number] [id number] *[id number] [id number] *[id number] *[id number] 13:33 MEDLINE INDUSTRIES PACK, CCL CUSTOM * Used *[id number] 13:33 3dCart Shopping Cart Software PACER PEN, SKIN DUAL W/ RULER * Used *[id number] 13:56 MEDTRONIC STENT, 4.0 9 INTEGRITY 4.0 9 [id number] Used [id number] 13:58 Spotsetter MEDICAL 30 YOON INDEFLATOR Used *[id number] SHEATH, FR6 RADIAL PRELUDE 13:34 Spotsetter MEDICAL FR 6 [id number] Used EASE 11CM [id number] 13:51 Spotsetter MEDICAL SHEATH, FR6.5 PRELUDE 11CM FR 6.5 [id number] Used *[id number] 13:33 Spotsetter MEDICAL WIRE, 3MMJ .035 180CM 180CM Used *[id number] 13:33 NAMIC MANIFOLD, 4 PORT * Used *[id number] 13:33 NYCOMED OMNIPAQUE, 350 MG, 150ML 150ML [id number] Used [id number] 13:33 PICHARDO MEDICAL BLANKET,WARM AIR CCL * Used *[id number] 13:33 TERUMO MEDICAL SHEATH, FR4 TERUMO (10CM) FR 4 Used *[id number] 13:34 TERUMO MEDICAL SHEATH, FR4 TERUMO (10CM) FR 4 Used *[id number] Equipment Model, Serial, Lot Number and Expiration Data Description Model Number Serial Number Lot Number Expiration Date SHEATH, FR6.5 PRELUDE 11CM [id number] 03-22-2020 STENT, 4.0 9 INTEGRITY [id number] 12-17-2018 History: Current Medications Medication Dosage/Unit Route Frequency Last Date/Time Taken ASA History: Allergies Allergy Reaction Latex History: Risk Factors Family History of Hypertension Dyslipidemia Previous MT Previous Heart Failure Premature CAD Yes No Yes Yes Yes Prior Valve Prior PCI Prior CABG Surgery No No No Cerebrovascular Peripheral Artery Chronic Lung On Dialysis Diabetes Diabetes Therapy Disease Disease Disease Yes No No No Yes Oral History: Symptoms/Diagnosis Selection Items Chest pain SOB History: Stress Tests Stress or Imaging Studies Performed No History: Other Disease Selection Items Hepatitis History: Other Current Smoker No Labs Glucose (mg/dl) BUN (mg/dl) Creatinine (mg/dl) BUN:Creatinine (1:x) 74.00-106.00 7.00-18.00 0.50-1.30 10.00-20.00 152 64 8.7 7.4 Na (meq/l) K (meq/l) CO2 (mmol/L) Ca (mg/dl) 136.00-145.00 3.50-5.10 21.00-32.00 8.50-10.10 136 6.4 22.7 9.8 Troponin I (ng/ml) CPK (u/l) CPK-MB (ng/ML) 0.02-0.05 26.00-308.00 0.50-3.60 1.65 133 15.1 Medication Medication Total Dose (Bolus/Oral) Medication Total Dosage/Unit 1% XYLOCAINE 20 mL AGGRASTAT BOLUS 24.5 mL HEPARIN 3400 units PLAVIX 600 mg VERSED 0.5 mg Medications (Bolus/Oral) Medication Time Given Dosage/Unit Administered By Reason 1% XYLOCAINE 06/15/2017 1:43:38 PM 20 mL Arsenio Dowd Patient arrived on 20 mL 1% XYLOCAINE given by Arsenio Dowd in Right Groin via Subcutaneous. VERSED 06/15/2017 1:48:17 PM 0.5 mg Deana Hernandez 0.5 mg VERSED given in lab by Deana Hernandez, RN in Right Wrist via Peripheral IV. Ordered by Arsenio Vázquez. HEPARIN 06/15/2017 1:52:01 PM 3400 units Deana Hernandez 3400 units HEPARIN given in lab by Deana Hernandez RN in Right Wrist via Peripheral IV. Ordered by Arsenio Dowd. AGGRASTAT BOLUS 06/15/2017 2:04:50 PM 24.5 mL Deana Hernandez 24.5 mL AGGRASTAT BOLUS given in lab by Deana Hernandez RN in Right Wrist via Peripheral IV. Ordere d by Arsenio Dowd. PLAVIX 06/15/2017 2:06:01 PM 600 mg Deana Hernandez 600 mg PLAVIX given in lab by Deana Hernandez RN via Oral. Ordered by Arsenio Dowd. Medication (Drip) Medication Time Given Dosage/Unit Concentration/Unit Diluent (ml) Solutio n AGGRASTAT DRIP 06/15/2017 2:05:57 PM 0.037 mcg/kg/min 12.5 mg 250 NaCl .9 0.037 mcg/kg/min AGGRASTAT DRIP given in lab by Deana Hernandez RN in Right Wrist via Peripheral IV . Pump/Drip Flow = 2.2 ml/hr using NaCl .9 with a concentration of 12.5 mg in 250 ml. Ordered by Arsenio Dowd. Reason: As per physicians renetta bal order. RENAL DOSE HEPARIN DRIP 06/15/2017 2:15:01 PM 1000 units/hr 93026 units 250 D5W 1000 units/hr HEPARIN DRIP given in lab by Deana Hernandez RN in Right Wrist via Peripheral IV. Pum p/Drip Flow = 10 ml/hr [place] [address] units in 250 ml. Ordered by Arsenio Dowd. IV Solutions 06/15/2017 1:31:16 PM 0 mL (IV) 1000 NaCl .9 Patient arrived on IV Solutions in Right Wrist via Peripheral IV. Pump/Drip Flow = 20 ml/hr using NaC l .9. Final Case Assessment Cardiovascular HR Rhythm NIBP Chest Pain 65 sr 134/76 8 Circulatory - Right Pulses Dorsalis Pedis Femoral 1 1 Scale (0,1,2,3,4,d) Circulatory - Left Pulses Dorsalis Pedis Femoral 1 1 Scale (0,1,2,3,4,d) Neurological State Oriented to time-place- Alert Moves all extremities person Respiration - General Respiration Rate SpO2 (%) (B/min) 12 90 Initial Case Assessment Cardiovascular HR Rhythm NIBP Chest Pain 65 SR 116/69 0 Circulatory - Right Pulses Dorsalis Pedis Femoral 1 1 Scale (0,1,2,3,4,d) Circulatory - Left Pulses Dorsalis Pedis Femoral 1 1 Scale (0,1,2,3,4,d) Neurological State Oriented to time-place- Alert Moves all extremities person Respiration - General Respiration Rate SpO2 (%) (B/min) 13 98 Chronological Log Time Study Chronological Log 13:24:05 Patient arrived via Bed with Nitro patch on left upper chest. Heparin drip was discontinued prior to refuse laborer arrival. 13:24:10 Patient Name, D.O.B, / Armband Verified By R.N. 13:29:15 Consent signed by the physician and the patient and verified by the Information Resources Director staff. 13:29:16 Pre-op and post- op instructions given; patient acknowledges understanding of instructions. 13:29:17 Verbal Stimulation=2 Physical Stimulation=2 Airway=2 Respiration=2 TOTAL=8. (0=absent, 1=li mited, 2=present) 13:29:19 Presedation assessment performed by Information Resources Director RN. 13:29:22 Patient has been NPO for More than 6Hrs. 13:29:23 Skin Breakdown-Left foot wound lateral plantar surface Vitals capture started with the following parameters, Patient=Adult, Interval=5 min, Initial Pr pqvona=241 mmHg, 13:29:27 Deflation Rate=5 mmHg 13:29:58 EKVG=845/69 mmhg 13:31:12 Johan Prominences Protected 13:31:15 A # 22 IV was noted in the Wrist (right). Grade = patent 13:31:16 Patient arrived on IV Solutions in Right Wrist via Peripheral IV. Pump/Drip Flow = 20 ml/hr using NaCl .9. 13:31:17 History and physical on the chart or being dictated. 13:31:22 Reference ECG taken 13:34:57 HR=65 bpm, AAFC=663/69 mmhg, SpO2=99.0 %, Resp=13 B/min, Pain=0, Browning=2 Assessment: Initial Case, HR=65 BPM, Rhythm=SR, ZQFI=847/69 mmhg, Chest Pain=0 Right Pulses: Jefry Ped=1, Femoral=1 13:34:58 Left Pulses: Jefry Ped=1, Femoral=1 Neurological: State=Alert, Ox3, ROBERTSON Respiration: Resp=13 B/min, SpO2=98 % 13:37:46 Bilateral groins prepped with 2% chlorhexidine, and draped after a 3 min. waiting time. 13:39:23 MD paged 13:39:25 MD responded 13:39:58 HR=67 bpm, UFAT=329/66 mmhg, SpO2=95.0 %, Resp=11 B/min, Pain=0, Browning=2 Time Out. Correct patient, correct procedure,correct physician, power injector not loaded with contrast with surgical 13:43:12 team present. Time Out Concurred by MD and individual staff in procedure 13:43:36 Case Start 13:43:38 Patient arrived on 20 mL 1% XYLOCAINE given by Arsenio Dowd in Right Groin via Subcutan eous. 13:44:57 HR=71 bpm, JKGC=857/79 mmhg, SpO2=95.0 %, Resp=16 B/min 13:45:51 Access site was Right Femoral Artery. 13:45:57 A SHEATH, FR4 TERUMO (10CM) FR 4 was advanced into the Fem Art (right) using the Percutaneo us technique. 13:46:08 Activated Clotting Time Drawn 13:46:12 Pressure channel 1 zeroed. A JR 4.0 INFINITI CATHETER FR 4 was advanced over a wire. OMNIPAQUE, 350 MG, 150ML 150ML was us ed for 13:46:19 injections. Recorded Pressure: LV, HR=73, Condition=Condition 1 13:47:23 (Left Ventricle) LV 129/6/11 Recorded Pressure: LV, Ao, HR=68, Condition=Condition 1 13:47:46 (Left Ventricle) LV 129/7/11, (Aorta) Ao 131/66/91 13:48:05 The RCA was injected and visualized at various angles. OMNIPAQUE, 350 MG, 150ML 150ML used . 13:48:17 0.5 mg VERSED given in lab by Deana Hernandez RN in Right Wrist via Peripheral IV. Ordere d by Noemí, Arsenio. 13:49:04 Catheter was removed A JL 4.0 INFINITI CATHETER FR 4 was advanced over a wire. OMNIPAQUE, 350 MG, 150ML 150ML was us ed for 13:49:05 injections. 13:49:31 ACT (Normal Range 90-180) = 130 13:50:00 HR=67 bpm, QNKT=955/65 mmhg, SpO2=91.0 %, Resp=13 B/min 13:50:07 The LCA was injected and visualized at various angles. OMNIPAQUE, 350 MG, 150ML 150ML used . 13:51:27 Catheter was removed 3400 units HEPARIN given in lab by Deana Hernandez, SRIDEVI in Right Wrist via Peripheral IV. Order ed by Noemí 13:52:01 Arsenio. A SHEATH, FR6.5 PRELUDE 11CM FR 6.5 was exchanged in the Fem Art (right). This was necessary in order to 13:52:44 accomodate a larger catheter. A XB 3.5 GUIDE CATHETER FR 6 was advanced over a wire. OMNIPAQUE, 350 MG, 150ML 150ML was used for 13:53:35 injections. 13:55:34 HR=70 bpm, NRQL=836/83 mmhg, SpO2=90.0 %, Resp=11 B/min 13:56:02 A WIRE, ASAHI PROWATER 180CM 180CM was inserted via Fem Art (right). An STENT, 4.0 9 INTEGRITY 4.0 9 Bare Metal Stent was inserted through a XB 3.5 GUIDE CATHETER F R 6 over a 13:56:39 WIRE, ASAHI PROWATER 180CM 180CM. A STENT, 4.0 9 INTEGRITY 4.0 9 was deployed using a 30 YOON INDEFLATOR at 10 atmospheres for 15 seconds in the 13:57:23 LAD Prox. 13:58:35 Wire removed 13:59:20 Catheter was removed 13:59:21 Case End 14:00:06 HR=70 bpm, FTJP=566/76 mmhg, SpO2=94.0 %, Resp=12 B/min 14:01:40 In the Fem Art (right) the SHEATH, FR6.5 PRELUDE 11CM FR 6.[address] by Terrance Rueda RCIS(BS). 14:01:50 Sterile dressing applied to site 14:01:51 No case complications noted. 14:01:53 Cine recording checked. 14:03:23 Bedside Report will be given. 14:03:25 Implantable Device card placed in patient's chart. Assessment: Final Case, HR=65 BPM, Rhythm=sr, PZJV=530/76 mmhg, Chest Pain=8 Right Pulses: Jefry Ped=1, Femoral=1 14:03:28 Left Pulses: Jefry Ped=1, Femoral=1 Neurological: State=Alert, Ox3, ROBERTSON Respiration: Resp=12 B/min, SpO2=90 % 14:04:36 ACT (Normal Range 90-180) = 245 24.5 mL AGGRASTAT BOLUS given in lab by Deana Hernandez RN in Right Wrist via Peripheral IV. Ordered by 14:04:50 Arsenio Dowd. 14:05:05 HR=65 bpm, FHPS=474/67 mmhg, SpO2=94 %, Resp=12 B/min, Pain=0, Browning=2 0.037 mcg/kg/min AGGRASTAT DRIP given in lab by Deana Hernandez RN in Right Wrist via Periphe ral IV. Pump/Drip 14:05:57 Flow = 2.2 ml/hr using NaCl .9 with a concentration of 12.5 mg in 250 ml. Ordered by Arsenio Sandoval. Reason: As per physicians verbal order. RENAL DOSE 14:06:01 600 mg PLAVIX given in lab by Deana Hernandez RN via Oral. Ordered by Arsenio Dowd. 1000 units/hr HEPARIN DRIP given in lab by Deana Hernandez RN in Right Wrist via Peripheral I V. Pump/Drip Flow = 14:15:01 10 ml/hr [place] [address] units in 250 ml. Ordered by Arsenio Dowd. End Study - Contrast Media Used In Study Contrast Total Opened (mL) Total Used (mL) Total Wasted (mL) Omnipaque 70 70 0 End Study - Maximum Contrast Load Max Contrast Load (mL) 28.2 End Study - Radiation Exposure Fluoro Time (minutes) 2.8 End Study - Patient Disposition Complications Transferred To Interventional Outcome No Telemetry Bed successful
[2017-06-15] MEDS ORDERED: CLOPIDOGREL 300 MG TAB PO ONE (15:00)
[2017-06-15] MEDS ORDERED: TIROFIBAN INFUSION INJ 250 ML IV SCH (15:00)
[2017-06-15] MEDS ORDERED: IOHEXOL 350 MG/ML 100 ML BTL (for Cath Lab) OTHER ONE (15:05)
[2017-06-15] MEDS: SODIUM CHLORIDE 0.9% FLUSH 10 ML FLUSH SCH (19:15)
[2017-06-15 21:17] LABS: ALKALINE PHOSPHATASE 224 U/L (45-117); ALT (GPT) 42 U/L (10-53); ANION GAP 12 MEQ/L (5-15); AST (GOT) 69 U/L (15-37); BICARBONATE 23.9 MEQ/L (21.0-32.0); BLOOD UREA NITROGEN 57 MG/DL (7-18); CHLORIDE 96 MEQ/L (98-107); GLOMERULAR FILTRATION RATE 6 ML/MIN (>89); POTASSIUM 3.7 MEQ/L (3.5-5.1); SODIUM (NA) 132 MEQ/L (136-145); TOTAL BILIRUBIN ADULT 0.4 MG/DL (0.2-1.0)
[2017-06-15 22:13] LABS: APTT (PATIENT) 118.1 SEC (24.3-30.1)
[2017-06-15] MEDS: diphenhydrAMINE HCL 25 MG CAP PO PRN (23:21)
[2017-06-16] VITALS (25 sets, daily range): BP systolic 83–131; BP diastolic 55–77; PULSE 59–78; RESP 16–20; TEMP 98.1–98.7; O2SAT 94–100
[2017-06-16 00:37] LABS: APTT (PATIENT) 42.9 SEC (24.3-30.1)
[2017-06-16 05:55] LABS: AUTOMATED NEUTROPHIL # 2.6 TH/MM3 (1.8-7.7); BASOPHIL % 0.6 % (0.0-2.0); EOSINOPHIL # 0.2 TH/MM3 (0-0.4); EOSINOPHIL % 4.1 % (0.0-4.0); HEMATOCRIT 40.7 % (35.0-46.0); HEMO FLAGS DIFF FINAL; LYMPHOCYTE # 1.3 TH/MM3 (1.0-4.8); MEAN CELL VOLUME 89.8 FL (80.0-100.0); MEAN CORPUSCULAR HEMOGLOBIN 28.1 PG (27.0-34.0); MEAN CORPUSCULAR HGB CONC 31.3 % (32.0-36.0); MONO % 15.7 % (0.0-8.0); NEUT % 52.6 % (16.0-70.0); PLATELET COUNT 147 TH/MM3 (150-450); RED BLOOD COUNT 4.53 MIL/MM3 (4.00-5.30); RED CELL DISTRIBUTION WIDTH 15.5 % (11.6-17.2); WHITE BLOOD COUNT 4.9 TH/MM3 (4.0-11.0)
[2017-06-16 06:00] LABS: APTT (PATIENT) 40.4 SEC (24.3-30.1)
[2017-06-16] MEDS: METOPROLOL TARTRATE 25 MG TAB PO SCH ×3 (06:00→21:19)
[2017-06-16] MEDS: NITROGLYCERIN 2% OINT 1 GM PACKET TOPICAL SCH ×3 (06:00→23:36)
[2017-06-16 06:46] LABS: BICARBONATE 26.7 MEQ/L (21.0-32.0); HDL CHOLESTEROL 63.9 MG/DL (40.0-60.0); INDIRECT BILIRUBIN 0.3 MG/DL (0.0-0.8); POTASSIUM 3.7 MEQ/L (3.5-5.1); TOTAL BILIRUBIN ADULT 0.4 MG/DL (0.2-1.0)
[2017-06-16] MEDS: INSULIN ASPART SUPPLEMENTAL SCALE SQ SCH ×4 (06:49→21:00)
[2017-06-16] MEDS: CLOPIDOGREL 75 MG TAB PO SCH (08:34)
[2017-06-16] MEDS: ASPIRIN 81 MG CHEW TAB PO SCH (08:34)
[2017-06-16] MEDS: SODIUM CHLORIDE 0.9% FLUSH 10 ML FLUSH SCH ×3 (08:35→21:20)
--- NOTE | 2017-06-16 10:06 | HHI.NPPN ---
Subjective Renal Failure: Chronic, End Stage Renal Disease Interval History She had cardiac cath yesterday with BMS to LAD. To go to r&d lab technician again today. On Aggrastat gtt. She did not have dialysis yesterday. ([place] ) Review of Systems Cardiovascular Cardiac: Chest Pain ([place]) Skin Skin: Ulcers ([place]) Objective Data Data 06/15/17 06/16/17 19:00 07:00 Intake Total 480 ml 240 ml Output Total 0 ml Balance 480 ml 240 ml Intake Oral 480 ml 240 ml Output Urine Total 0 ml Stool Total 0 ml # Voids 0 Vital Signs Date Time Temp Pulse Resp B/P Pulse Ox O2 Delivery O2 Flow Rate FiO2 06/16/17 09:00 65 06/16/17 08:00 78 06/16/17 07:35 97 21 06/16/17 07:00 68 06/16/17 07:00 98.5 72 16 83/77 94 06/16/17 06:00 72 06/16/17 05:00 66 06/16/17 04:00 64 18 117/55 98 06/16/17 04:00 63 06/16/17 03:00 72 06/16/17 02:00 68 06/16/17 01:00 77 06/16/17 00:00 78 06/16/17 00:00 98.5 74 20 106/60 98 06/15/17 23:00 78 06/15/17 22:00 64 06/15/17 21:00 64 06/15/17 20:00 98.0 68 20 113/59 98 06/15/17 20:00 67 06/15/17 19:00 62 06/15/17 18:00 69 06/15/17 17:00 67 06/15/17 16:34 97 21 06/15/17 16:00 68 06/15/17 15:00 97.8 68 20 131/72 98 06/15/17 15:00 69 06/15/17 13:00 66 06/15/17 12:00 62 06/15/17 11:00 98.0 71 20 92/62 98 06/15/17 11:00 69 06/15/17 10:00 71 ([facility]) -: 06/16/17 0530 06/16/17 0530 Imaging Last 72 hours Impressions Chest X-Ray 06/14/17 1050 Signed Impressions: Service Date/Time: Wednesday, June 14, 2017 10:46 - CONCLUSION: Borderline cardiomegaly. María Elena Hdez MD Foot X-Ray 06/14/17 0000 Signed Impressions: Service Date/Time: Wednesday, June 14, 2017 13:52 - CONCLUSION: Chronic changes and no evidence for acute fracture. María Elena Hdez MD Drip Comment Aggrastat ([place]) Physical Exam General Appearance: Well Developed, Well Nourished, No Acute Distress, Comfortable, Sleeping ([place]) Eyes Eye Exam: Pupils Equal ([place] BMamie MONTALVOP) Throat Throat Exam: Oral Mucosa Clara & Moist ([place] B. SURGICAL FIRST ASSISTANT) Pulmonary Resp Exam: Clear Bilaterally, Breath Sounds Equal ([facility]) Cardiology CV Exam: Regular, Normal Sinus Rhythm ([place] [place]. SURGICAL FIRST ASSISTANT) Gastrointestinal/Abdomen GI Exam: Soft, Non-Tender, Bowel Sounds Present ([facility]) Musculoskeletal MS Exam: Normal Tone ([facility]) Integumentary Skin Exam: Warm, Dry Skin Remarks ulcer plantar surface ([place] B. SURGICAL FIRST ASSISTANT) Extremeties Extremities Exam: No Edema, Pedal Pulses Palpable Extremeties Remarks left arm AVF + thrill/bruit ([facility]) Neurologic Neuro Exam: Alert, Awake, Oriented, Speech Clear, Moving All Extremities ( [facility]) Psychiatric Psych Exam: Appropriate Responses ([place]) Assessment/Plan Discussed Condition With: Patient Assessment Summary: Hypertension, Diabetes Mellitus, End Stage Renal Disease Problem List: (1) ESRD (end stage renal disease) on dialysis Plan: Typical [facility] outpatient HD schedule had emergent HD Thursday due to hyperkalemia unable to have dialysis yesterday due to cardiac cath and sheath still in place to have dialysis today, then return to MWF schedule tomorrow avoid IVF high protein diet when no longer NPO monitor electrolytes intermittently phosphorus level has been ordered, on Renvela for metabolic bone disorder (2) NSTEMI (non-ST elevated myocardial infarction) Plan: s/p cath 06/15 with bare metal stent to LAD plan to return to r&d lab technician around noon today cardiology following on Aggrastat gtt, ASA, Plavix, beta christofer (3) Diabetes type 2, controlled Plan: continue insulin support, monitor glucose (4) Hypertension Plan: borderline hypotensive this am continue home medications with hold parameters (5) Hyperkalemia Plan: repeat potassium is acceptable monitor (6) Ulcer of left foot Plan: wound care has been ordered ([place]) Plan patient was seen and examined. To go back to r&d lab technician today. Dialysis today. Repeat phosphorus level. (Nazario Ahumada MD) [facility] [place] Jun 16, 2017 10:06 Nazario Ahumada MD Jun 16, 2017 10:55
--- NOTE | 2017-06-16 11:26 | HHI.FPPN ---
Subjective Remarks Attempted to interview and exam patient this morning. Patient was uncooperative. She noted she had some continuing chest pain otherwise she did not wish to speak to the physicians. After several attempts to obtain information about her current state, her nurse came in and attempted to help persuade the patient to speak with us, to no effect. Patient further denied any further examination, however allowed a brief visual inspection of her surgical site. Objective Vitals Vital Signs Date Time Temp Pulse Resp B/P Pulse Ox O2 Delivery O2 Flow Rate FiO2 06/16/17 10:00 63 06/16/17 09:00 65 06/16/17 08:00 78 06/16/17 07:35 97 21 06/16/17 07:00 68 06/16/17 07:00 98.5 72 16 83/77 94 06/16/17 06:00 72 06/16/17 05:00 66 06/16/17 04:00 64 18 117/55 98 06/16/17 04:00 63 06/16/17 03:00 72 06/16/17 02:00 68 06/16/17 01:00 77 06/16/17 00:00 78 06/16/17 00:00 98.5 74 20 106/60 98 06/15/17 23:00 78 06/15/17 22:00 64 06/15/17 21:00 64 06/15/17 20:00 98.0 68 20 113/59 98 06/15/17 20:00 67 06/15/17 19:00 62 06/15/17 18:00 69 06/15/17 17:00 67 06/15/17 16:34 97 21 06/15/17 16:00 68 06/15/17 15:00 97.8 68 20 131/72 98 06/15/17 15:00 69 06/15/17 13:00 66 06/15/17 12:00 62 I/O 06/15/17 06/15/17 06/15/17 06/16/17 06/16/17 06/16/17 07:00 15:00 23:00 07:00 15:00 23:00 Intake Total 300 ml 480 ml 240 ml Output Total 0 ml 0 ml Balance 300 ml 480 ml 240 ml Intake Oral 300 ml 480 ml 240 ml Output Urine Total 0 ml 0 ml Stool Total 0 ml 0 ml # Voids 0 Result Diagram: 7/25/17 0530 06/16/17 0530 Objective Remarks Physical Exam Patient uncooperative, deferred exam. Allowed brief visual inspection of surgical site. Right inguinal area with sheath in place for procedure today. No apparent active bleeding. Medications and IVs Current Medications Medications (Trade) Dose Ordered Sig/Diamond Route Start Time Stop Time Status Last Admin (Heparin Inj) 5,000 units UNSCH PRN IV 06/14/17 18:15 Heparin Sodium (Porcine) 2500 units 2,500 units UNSCH PRN IV 06/14/17 18:15 06/15/17 06:56 (Heparin-D5W Inj) 250 ml @ 0 mls/hr TITRATE IV 06/14/17 12:15 06/14/17 12:45 (Morphine Inj) 2 mg Q30M PRN IV 06/14/17 13:00 06/15/17 19:15 Ondansetron HCl 4 mg 4 mg Q6H PRN IV 06/14/17 13:00 (NS 1000 ml Inj) 1,000 ml @ 0 mls/hr Q0M PRN IV 06/14/17 13:28 06/14/17 15:33 Heparin Sodium (Porcine) 8000 units 8,000 units UNSCH PRN IVF 06/14/17 13:30 Sodium Chloride 1,000 ml @ 200 mls/hr Q5H PRN IV 06/14/17 13:28 (NS 1000 ml Inj) 1,000 ml @ 0 mls/hr Q0M PRN IV 06/14/17 13:28 (Mannitol Inj) 12.5 gm UNSCH PRN IV 06/14/17 13:30 (Albumin 25% Inj) 25 gm UNSCH PRN IV 06/14/17 13:30 (NS Flush) 5 ml UNSCH PRN IV FLUSH 06/14/17 13:30 (Heparin Inj) UNSCH PRN .XX 06/14/17 13:30 (Gentamicin (Dialysis) Inj) 20 mg UNSCH PRN IV 06/14/17 13:30 (Zofran Inj) 4 mg UNSCH PRN IV 06/14/17 13:30 (Tylenol) 650 mg UNSCH PRN PO 06/14/17 13:30 (Benadryl) 25 mg UNSCH PRN PO 06/14/17 13:30 06/15/17 23:21 (Nitrostat Sl) 0.4 mg UNSCH PRN SL 06/14/17 13:30 (Catapres) 0.1 mg UNSCH PRN PO 06/14/17 13:30 (Gelfoam 12 Mm/7 Mm Top) 1 foam UNSCH PRN TOP 06/14/17 13:30 06/14/17 15:33 (D50w (Vial) Inj) 50 ml UNSCH PRN IV 06/14/17 14:00 (Glucagon Inj) 1 mg UNSCH PRN OTHER 06/14/17 14:00 (Nitroglycerin 2% Oint) 2 inch Q6HR TOPICAL 06/14/17 18:00 06/16/17 06:00 (Lopressor) 25 mg Q8HR PO 06/14/17 22:00 06/16/17 06:00 (NS Flush) 2 ml UNSCH PRN .XX 06/15/17 14:15 (NS Flush) 2 ml BID .XX 06/15/17 21:00 06/15/17 19:15 (Aspirin Chew) 162 mg DAILY PO 06/16/17 09:00 06/16/17 08:34 Clopidogrel Bisulfate 75 mg 75 mg DAILY PO 06/16/17 09:00 06/16/17 08:34 (Aggrastat Infusion Inj) 250 ml @ 8.82 mls/hr Q24H IV 06/15/17 15:00 06/16/17 14:59 06/15/17 15:09 (Renvela) 800 mg TIDAC PO 06/16/17 12:00 A/P Assessment and Plan Patient is a 57 year old female with past history of ESRD and diabetes who complains of chest pain.The pain started at 1:30am (06/15), was a sharp pain in the center of her chest which did not radiate. No pain in left arm or jaw. Noted excessive sweating, nausea, hot and cold intolerance, a brief dimming of her vision, and shortness of breath during the beginning of the chest pain. No vomiting, fever, chills, change in bowel habits, change in urinary habits, headache, dizziness, lightheadedness, weakness, numbness, tingling. No blurry vision/diplopia/other change in vision at time of admission. Patient states that at her last dialysis visit labs were drawn and were normal at that time. Potassium 6.4 in the ED, Troponins 1.65 and creatinine 8.73 which is similar to past reported creatinines (7.88 in 08/22/16). Incidentally notes healing left foot wound, previously debrided approximately 6 months ago at a different hospital. She said there was "no bone infection" at the time. She states that the wound is currently mildly painful, not hot. Ulcer large in size with packing in place which patient states she changes every 3 days for the past 6 months. Currently S/P 1 catheterization, to be catheterized again today. Problem List: (1) NSTEMI (non-ST elevated myocardial infarction) Status: Acute Plan: Resting chest pain starting at 1:30 am 06/14. No significant improvement. Per ED note, no ST elevation noted on ECG in ED. Troponin 1.65 at admission, . Troponins were to be drawn Q6 x3. Second set of troponins delayed due to the patient being in dialysis at the time of the blood draw. Contacted Dialysis which confirmed her troponins could not be obtained at that time. Cardiac catheterization performed 06/16/17 * Catheterization 06/16, second catheterization to occur this afternoon * F/U cardiology recommendations * Troponins 1.65 @ 1105, 18.90 @ 0020, 24.00 @ 0450 * ASA 162 mg daily * Morphine for pain control * Metoprolol 25mg q8 * Nitroglycerin (2) Hyperkalemia Status: Acute Plan: ESRD and hyperkalemia. * Dialysis 06/14, to be performed again today * Follow potassium and treat as needed * Nephrology consulted, follow recommendations (3) Ulcer of left foot Status: Acute Plan: 6 month old ulcer of left foot which had been debrided at different hospital. Patient reported that she has been changing the dressing and packing every 3 days. * Maintain clean and dry * Wound care called and advised debridement of large eschar on bottom of foot for better treatment, consulted podiatry. * F/U Podiatry consult (4) ESRD (end stage renal disease) on dialysis Status: Acute Plan: ESRD with creatinine 8.73 and hyperkalemia on admission. * Dialysis 06/14, again later today * Will restart MWF dialysis after today * Follow nephrology recommendations (5) Diabetes type 2, controlled Status: Acute Plan: Diabetes type 2, non insulin dependent, reported as well controlled. * Discontinue home medications * low dose sliding scale insulin (6) Hypertension Status: Acute Plan: Hypertension at home, controlled with home medications. Currently ongoing NSTEMI * Continue home amlodipine 5mg if elevated * Follow cardiology recommendations (7) FEN Status: Acute Plan: Fluids - NPO until catheterizations Electrolytes - hyperkalemia and ESRD, Follow and correct as necessary Nutrition -NPO until catheterization Code -Full DVT proph - on plavix, SCDs Baudilio Bain MD R1 Jun 16, 2017 11:26
[2017-06-16] MEDS: MORPHINE SULFATE 4 MG/ML INJ IV PRN ×3 (11:40→23:35)
[2017-06-16] MEDS ORDERED: SEVELAMER CARBONATE 800 MG TAB PO SCH (12:00)
[2017-06-16] MEDS ORDERED: HEPARIN-NS/PF INJ 500 ML ONE (12:06)
[2017-06-16] MEDS ORDERED: HEPARIN SODIUM - IV 10,000 UNITS/10 ML VIAL ONE (12:06)
--- NOTE | 2017-06-16 12:10 | EKG ---
Date Performed: 06/16/2017 Time Performed: 04:48:52 PTAGE: 57 years EKG: Sinus arrhythmia Prolonged QT interval Leftward axis Anteroseptal infarct - age undetermine d LVH with secondary repolarization abnormality Inferior/lateral ST-T changes may be due to hypertrop hy and/or ischemia Abnormal ECG PREVIOUS TRACING : 06/15/2017 22.20 Compared to prior tracing no significant change DOCTOR: Eamon Lara Interpretating Date/Time 06/16/2017 12:08:05
--- NOTE | 2017-06-16 12:19 | EKG ---
Date Performed: 06/15/2017 Time Performed: 22:20:56 PTAGE: 57 years EKG: Sinus rhythm Prolonged QT interval Anteroseptal infarct - age undetermined Lateral ST-T changes may be due to shelley cardial ischemia There's mild variation in ST-T abnormalities Compared to prior tracing Clinical jaime elation is recommended Abnormal ECG PREVIOUS TRACING : 06/14/2017 10.57 DOCTOR: Eamon Lara Interpretating Date/Time 06/16/2017 13:38:26
[2017-06-16] MEDS ORDERED: MIDAZOLAM HCL 2 MG/2 ML VIAL ONE (13:02)
--- NOTE | 2017-06-16 13:41 | CATHPROC ---
hi5 HIS Report Study Information Study Number Admission Scheduled Start Study Start [id number] Jun 14 2017 12:47PM 06/16/2017 Jun 16 2017 12:26PM [place] Service Cardiac Catheterization Admit Source Facility Department Other [facility] - Finance Manager Physician and Clinical Staff Initial Arsenio Toro Python Developernaomie Clark RN, Michael Other Sheela Youngblood RCIS TECH2 Recorder Chantale Clark,RT(R) Scrub Sudheer Angelo,RT(R) Procedures Performed Procedure Location (Site) Vessel Name Coronary Angiograms RCA Right Coronary L Heart Cath PTCA RCA Dist Right Coronary PTCA RCA Mid Right Coronary PTCA ADD ON'S Stent RCA Dist Right Coronary Stent RCA Mid Right Coronary Stent RCA Prox Right Coronary Wire insertion Fem Art (right) Femoral Art Equipment Time Supervisor Machine Setter Description Size Mfg Part Number Used/Scraped [id number] 13:06 [employer] WIRE, ASAHI PROWATER 180CM 180CM Used *[id number] TRANSDUCER, TRUWAVE [id number] 13:06 MCKEON PANDYA * Used W/STOCKCOCK *[id number] *[id number] 13:06 [employer] INDUSTRIES PACK, CCL CUSTOM * Used *[id number] 13:06 [employer] PACER PEN, SKIN DUAL W/ RULER * Used *[id number] BALLOON, 2.5 X 12MM SPRINTER [id number] 13:10 MEDTRONIC 12MM Used LEGEND *[id number] 13:18 [employer]IC STENT, 4.0 15 INTEGRITY 4.0 15 Used *[id number] 13:24 [employer]TRONIC STENT, 4.0 9 INTEGRITY 4.0 9 [id number] Used 13:15 MEDTR[employer]IC STENT, 4.0 9 INTEGRITY 4.0 9 [id number] Used [id number] 13:08 [employer] MEDICAL 30 YOON INDEFLATOR Used *[id number] 13:06 [employer] MEDICAL SHEATH, FR6.5 PRELUDE 11CM FR 6.5 038ACT Used *[id number] 13:06 [employer] MEDICAL WIRE, 3MMJ .035 180CM 180CM Used *[id number] 13:06 NAMIC MANIFOLD, 4 PORT * Used *[id number] 13:08 [employer]COMED OMNIPAQUE, 300 MG, 50ML 50ML [id number] Used 13:06 [employer]COMED OMNIPAQUE, 350 MG, 150ML 150ML [id number] Used 13:08 NYCOMED OMNIPAQUE, 350 MG, 150ML 150ML [id number] Used [id number] 13:06 PICH[employer] MED[employer] BLANKET,WARM AIR CCL * Used *[id number] 13:18 VITATRON MEDTRONIC CAP, END PACEMAKER * [id number] *[id number] Used Equipment Model, Serial, Lot Number and Expiration Data Description Model Number Serial Number Lot Number Expiration Date BALLOON, 2.5 X 12MM SPRINTER [id number] 03-05-2018 LEGEND STENT, 4.0 15 INTEGRITY [id number] 11-26-2017 STENT, 4.0 9 INTEGRITY [id number] 12-17-2018 STENT, 4.0 9 INTEGRITY [id number] 01-17-2019 History: Current Medications Medication Dosage/Unit Route Frequency Last Date/Time Taken ASA History: Allergies Allergy Reaction Latex History: Risk Factors Family History of Hypertension Dyslipidemia Previous NE Previous Heart Failure Premature CAD Yes No Yes Yes Yes Prior Valve Prior PCI Prior CABG Surgery No No No Cerebrovascular Peripheral Artery Chronic Lung On Dialysis Diabetes Diabetes Therapy Disease Disease Disease Yes No No No Yes Oral History: Symptoms/Diagnosis Selection Items Chest pain SOB History: CV Disease Selection Items Known CAD History: Stress Tests Stress or Imaging Studies Performed No History: Other Disease Selection Items Hepatitis History: Other Current Smoker No Labs Hgb (g/dl) Hct (%) WBC (l/cumm) Platelets (thousands) 11.60-17.00 35.00-51.00 4.00-11.00 150.00-450.00 12.7 40.7 4.9 147 Glucose (mg/dl) BUN (mg/dl) Creatinine (mg/dl) BUN:Creatinine (1:x) 74.00-106.00 7.00-18.00 0.50-1.30 10.00-20.00 136 68 9.2 7.4 Na (meq/l) K (meq/l) 136.00-145.00 3.50-5.10 136 3.7 Troponin I (ng/ml) CPK (u/l) CPK-MB (ng/ML) 0.02-0.05 26.00-308.00 0.50-3.60 24 262 35.2 Medication Medication Total Dose (Bolus/Oral) Medication Total Dosage/Unit 1% XYLOCAINE 20 mL HEPARIN 3700 units VERSED 0.5 mg Medications (Bolus/Oral) Medication Time Given Dosage/Unit Administered By Reason VERSED 06/16/2017 1:04:03 PM 0.5 mg Michael Clark RN Patient arrived on 0.5 mg VERSED given by Michael Clark RN via Peripheral IV. 1% XYLOCAINE 06/16/2017 1:05:32 PM 20 mL Arsenio Dowd 20 mL 1% XYLOCAINE given in lab by Arsenio Dowd in Right Groin via Subcutaneous. HEPARIN 06/16/2017 1:06:37 PM 3700 units Michael Clark RN 3700 units HEPARIN given in lab by Michael Clark RN in Right Wrist via Peripheral IV. Medication (Drip) Medication Time Given Dosage/Unit Concentration/Unit Diluent (ml) Solutio n AGGRASTAT DRIP 06/16/2017 12:53:23 PM 0.035 mcg/kg/min 12.5 mg 250 NaCl .9 Patient arrived on 0.035 mcg/kg/min AGGRASTAT DRIP in Right Wrist via Peripheral IV. Pump/Drip Flow = 2.2 ml/hr using NaCl .9 with a concentration of 12.5 mg in 250 ml. IV Solutions 06/16/2017 12:53:52 PM 0 mL (IV) 1000 NaCl .9 Patient arrived on IV Solutions given by Michael Clark RN in Right Wrist via Peripheral IV. Pump/Drip Flow = 20 ml/hr using NaCl .9. Initial Case Assessment Cardiovascular HR Rhythm NIBP Chest Pain 65 reg 123/70 0 Edema Present Skin color Skin None Normal Warm Circulatory - Right Pulses Dorsalis Pedis Femoral 3 2 Scale (0,1,2,3,4,d) Circulatory - Left Pulses Dorsalis Pedis Femoral 3 2 Scale (0,1,2,3,4,d) Circulatory - Lower Extremities Color Lower Right Color Lower Left Normal Normal Neurological State Oriented to time-place- Alert Moves all extremities person Respiration - General Respiration Rate SpO2 (%) (B/min) 20 98 Final Case Assessment Cardiovascular HR Rhythm NIBP Chest Pain 69 REG 117/66 0 Edema Present Skin color Skin None Normal Warm Circulatory - Right Pulses Dorsalis Pedis Femoral 2 2 Scale (0,1,2,3,4,d) Circulatory - Left Pulses Dorsalis Pedis Femoral 2 2 Scale (0,1,2,3,4,d) Circulatory - Lower Extremities Color Lower Right Color Lower Left Normal Normal Neurological State Oriented to time-place- Alert Moves all extremities person Respiration - General Respiration Rate SpO2 (%) (B/min) 12 96 Chronological Log Time Study Chronological Log 12:28:42 Patient arrived via Bed. 12::44 Patient Name, D.O.B, / Armband Verified By R.N. 12::44 Consent signed by the physician and the patient and verified by the Finance Manager staff. 12::45 Pre-op and post- op instructions given; patient acknowledges understanding of instructions. 12::47 Patient has been NPO for More than 6Hrs. 12::47 Skin Breakdown-none 12:28:50 A # 22 IV was noted in the Wrist (right). Grade = 0 Vitals capture started with the following parameters, Patient=Adult, Interval=5 min, Initial Pr nihnex=350 mmHg, 12:45:13 Deflation Rate=5 mmHg 12:45:51 HR=64 bpm, RDVG=199/69 mmhg, SpO2=96.0 %, Resp=15 B/min, Pain=0, Zofia=10, Browning=2 12:48:04 Reference ECG taken 12:50:44 HR=64 bpm, ZPLH=480/68 mmhg, SpO2=95.0 %, Resp=13 B/min, Pain=0, Zofia=10, Browning=2 Patient arrived on 0.035 mcg/kg/min AGGRASTAT DRIP in Right Wrist via Peripheral IV. Pump/Drip Flow = 2.2 ml/hr 12:53:23 using NaCl .9 with a concentration of 12.5 mg in 250 ml. Patient arrived on IV Solutions given by Michael Clark RN in Right Wrist via Peripheral IV. Pump /Drip Flow = 20 ml/hr 12:53:52 using NaCl .9. 12:54:40 History and physical on the chart or being dictated. Assessment: Initial Case, HR=65 BPM, Rhythm=reg, POWA=204/70 mmhg, Chest Pain=0, Edema=None, Co true=Normal, Skin = Warm Right Pulses: Jefry Ped=3, Femoral=2 Left Pulses: Jefry Ped=3, Femoral=2 12:54:41 Lower Right Extremities: Color=Normal Lower Left Extremities: Color=Normal Neurological: State=Alert, Ox3, [place] Respiration: Resp=20 B/min, SpO2=98 % 12:55:43 HR=65 bpm, RPBX=666/70 mmhg, SpO2=95.0 %, Resp=15 B/min, Pain=0, Zofia=10, Browning=2 12:56:26 Bilateral groins prepped with 2% chlorhexidine, and with a 3 min. waiting time. 12:56:30 MD paged 12:56:41 PT ARRIVED WITH NITRO PATCH RIGHT UPPER CHEST 12:57:09 PT ARRIVED WITH A 6FR SHEATH IN RIGHT GROIN FROM PRIOR CATH 12:59:18 HEPARIN WAS DISCONTINUED IN PT'S ROOM 12:59:48 ACT (Normal Range 90-180) = 135 13:00:34 Pressure channel 1 zeroed. 13:00:46 HR=63 bpm, LQCJ=013/63 mmhg, SpO2=96.0 %, Resp=17 B/min, Pain=0, Zofia=10, Browning=2 13:01:59 MD arrived. 13:04:03 Patient arrived on 0.5 mg VERSED given by Michael Clark RN via Peripheral IV. Time Out. Correct patient, correct procedure,correct physician, ,power injector not loaded with contrast with surgical 13:04:18 team present. Time Out Concurred by MD, individual staff and PACKER DRIED BEEF in procedure 13:05:22 Case Start 13:05:23 Verbal Stimulation=2 Physical Stimulation=2 Airway=2 Respiration=2 TOTAL=8. (0=absent, 1=li mited, 2=present) 13:05:32 20 mL 1% XYLOCAINE given in lab by Arsenio Dowd in Right Groin via Subcutaneous. 13:05:45 HR=66 bpm, UXFL=302/67 mmhg, SpO2=94.0 %, Resp=13 B/min, Pain=0, Zofia=10, Browning=2 A SHEATH, FR6.5 PRELUDE 11CM FR 6.5 was exchanged in the Fem Art (right). This was necessary in order to insure 13:06:03 sterility. 13:06:37 3700 units HEPARIN given in lab by Michael Clark RN in Right Wrist via Peripheral IV. A JR 4.0 GUIDE CATHETER FR 6 was advanced over a wire. OMNIPAQUE, 350 MG, 150ML 150ML was used for 13:07:20 injections. 13:07:47 OMNIPAQUE, 300 MG, 50ML 50ML and 30 YOON INDEFLATOR added. Recorded Pressure: Ao, HR=66, Condition=Condition 1 13:08:14 (Aorta) Ao 113/55/77 13:08:44 The RCA was injected and visualized at various angles. OMNIPAQUE, 350 MG, 150ML 150ML used . 13:08:59 A WIRE, ASAHI PROWATER 180CM 180CM was inserted via Fem Art (right). 13:09:46 Interventional wire has crossed the lesion 13:10:42 HR=67 bpm, DEQF=430/72 mmhg, SpO2=95 %, Resp=12 B/min, Pain=0, Zofia=10, Browning=2 A BALLOON, 2.5 X 12MM SPRINTER LEGEND 12MM was inserted over WIRE, ASAHI PROWATER 180CM 180CM v ia the 13:11:25 RCA Dist. A BALLOON, 2.5 X 12MM SPRINTER LEGEND 12MM over a WIRE, ASAHI PROWATER 180CM 180CM in the RCA D ist was 13:11:38 inflated using a 30 YOON INDEFLATOR at 11 yoon for 17 sec. A BALLOON, 2.5 X 12MM SPRINTER LEGEND 12MM over a WIRE, ASAHI PROWATER 180CM 180CM in the RCA M id was 13:12:23 inflated using a 30 YOON INDEFLATOR at 16 yoon for 10 sec. A BALLOON, 2.5 X 12MM SPRINTER LEGEND 12MM over a WIRE, ASAHI PROWATER 180CM 180CM in the RCA M id was 13:12:59 inflated using a 30 YOON INDEFLATOR at 14 yoon for 8 sec. 13:13:37 Balloon Removed. An STENT, 4.0 9 INTEGRITY 4.0 9 Bare Metal Stent was inserted through a JR 4.0 GUIDE CATHETER F R 6 over a 13:14:02 WIRE, ASAHI PROWATER 180CM 180CM. 13:15:45 HR=67 bpm, ZCNQ=004/67 mmhg, SpO2=92 %, Resp=19 B/min, Pain=0, Zofia=10, Browning=2 13:16:09 Stent not deployed. Stent removed and intact. An STENT, 4.0 15 INTEGRITY 4.0 15 Bare Metal Stent was inserted through a JR 4.0 GUIDE CATHETER FR 6 over a 13:17:03 WIRE, ASAHI PROWATER 180CM 180CM. A STENT, 4.0 15 INTEGRITY 4.0 15 was deployed using a 30 YOON INDEFLATOR at 16 atmospheres for 3 4 seconds in 13:18:27 the RCA Mid. 13:19:27 Delivery device removed 13:19:31 The RCA was injected and visualized at various angles. OMNIPAQUE, 350 MG, 150ML 150ML used . 13:20:42 HR=66 bpm, OVPV=415/68 mmhg, SpO2=96.0 %, Resp=16 B/min, Pain=0, Zofia=10, Browning=2 An STENT, 4.0 9 INTEGRITY 4.0 9 Bare Metal Stent was inserted through a JR 4.0 GUIDE CATHETER F R 6 over a 13:20:58 WIRE, ASAHI PROWATER 180CM 180CM. A STENT, 4.0 9 INTEGRITY 4.0 9 was deployed using a 30 YOON INDEFLATOR at 12 atmospheres for 18 seconds in the 13:21:10 RCA Dist. 13:21:29 Delivery device removed 13:21:39 The RCA was injected and visualized at various angles. OMNIPAQUE, 350 MG, 150ML 150ML used . 13:22:10 Re-inflated the stent balloon in the RCA Mid to 16 YOON for 17 seconds. ::42 Delivery device removed An STENT, 4.0 9 INTEGRITY 4.0 9 Bare Metal Stent was inserted through a JR 4.0 GUIDE CATHETER F R 6 over a 13:23:48 WIRE, ASAHI PROWATER 180CM 180CM. A STENT, 4.0 9 INTEGRITY 4.0 9 was deployed using a 30 YOON INDEFLATOR at 15 atmospheres for 15 seconds in the 13:24:24 RCA Prox. 13:25:15 Delivery device removed 13:25:23 The RCA was injected and visualized at various angles. OMNIPAQUE, 350 MG, 150ML 150ML used . 13:25:48 HR=69 bpm, QFLE=951/66 mmhg, SpO2=95.0 %, Resp=11 B/min, Pain=0, Zofia=10, Browning=2 13:29:14 Catheter was removed 13:29:16 Wire removed Assessment: Final Case, HR=69 BPM, Rhythm=REG, CJCH=141/66 mmhg, Chest Pain=0, Edema=None, [place] r=Normal, Skin = Warm Right Pulses: Jefry Ped=2, Femoral=2 Left Pulses: Jefry Ped=2, Femoral=2 13:29:24 Lower Right Extremities: Color=Normal Lower Left Extremities: Color=Normal Neurological: State=Alert, Ox3, [place] Respiration: Resp=12 B/min, SpO2=96 % 13:30:06 Catheter(s) removed without difficulty 13:30:09 In the Fem Art (right) the SHEATH, FR6.5 PRELUDE 11CM FR 6.[address] by Sudheer Crowder RT(R). 13:30:13 Case End 13:30:14 Sterile dressing applied to site 13:30:15 No case complications noted. 13:30:15 Cine recording checked. 13:30:17 Bedside Report will be given. 13:30:18 Implantable Device card placed in patient's chart. 13:30:21 A Left Heart Cath was performed. 13:30:27 Patient moved to stretcher 13:30:28 Clinical correlaton risk stratification. 13:30:47 HR=65 bpm, MKNV=389/65 mmhg, SpO2=95 %, Resp=9 B/min, Pain=0, Zofia=10, Browning=2 End Study - Contrast Media Used In Study Contrast Total Opened (mL) Total Used (mL) Total Wasted (mL) Omnipaque 80 80 0 End Study - Maximum Contrast Load Max Contrast Load (mL) 28.5 End Study - Radiation Exposure Fluoro Time (minutes) 8.3 End Study - Patient Disposition Complications Transferred To Interventional Outcome No Regular Bed successful
[2017-06-16] MEDS ORDERED: SODIUM CHLORIDE 0.9% FLUSH 10 ML FLUSH PRN (13:45)
[2017-06-16] MEDS ORDERED: MISC INFORMATION XX ONE (13:45)
[2017-06-16] MEDS ORDERED: TIROFIBAN INFUSION INJ 250 ML IV SCH (14:00)
[2017-06-16] MEDS ORDERED: BACITRACIN OINT 0.9 GM PKT TOP ONE (15:00)
--- NOTE | 2017-06-16 16:55 | PD.POD.CON ---
Patient Intake Chief Complaint Nonhealing ulceration of the left arch Consult Requested by Dr. Begum Reason for Consult Evaluation and treatment of ulceration of the left arch Primary Care Physician Snehal (Zen) MD Michi History of Present Illness Patient is a 57-year-old diabetic female on hemodialysis admitted with unstable angina. She has had a diabetic ulceration on the arch of the left foot and was seen at the wound center at [facility] by Dr. Maria. States she had Dopplers done in the past. Coded Allergies: Latex (Verified Allergy, Severe, 08/22/16) RASH Preferred Language to Discuss: Cypriot Barriers to Learning: None Teaching Method: Discussion Vital Signs Date Time Temp Pulse Resp B/P Pulse Ox O2 Delivery O2 Flow Rate FiO2 06/16/17 16:00 69 06/16/17 15:00 98.4 75 20 131/77 98 06/16/17 15:00 65 06/16/17 14:00 66 06/16/17 12:00 64 06/16/17 11:00 98.7 64 16 125/64 100 06/16/17 11:00 64 06/16/17 10:00 63 06/16/17 09:00 65 06/16/17 08:00 78 06/16/17 07:35 97 21 06/16/17 07:00 68 06/16/17 07:00 98.5 72 16 83/77 94 06/16/17 06:00 72 06/16/17 05:00 66 06/16/17 04:00 64 18 117/55 98 06/16/17 04:00 63 06/16/17 03:00 72 06/16/17 02:00 68 06/16/17 01:00 77 06/16/17 00:00 78 06/16/17 00:00 98.5 74 20 106/60 98 06/15/17 23:00 78 06/15/17 22:00 64 06/15/17 21:00 64 06/15/17 20:00 98.0 68 20 113/59 98 06/15/17 20:00 67 06/15/17 19:00 62 06/15/17 18:00 69 06/15/17 17:00 67 Pain scale used: 0-10 numeric scale Pain score: 4 Medications Current Medications Sodium Chloride (NS Flush) 2 ml UNSCH PRN IVF FLUSH AFTER USING IV ACCESS; Start 06/14/17 at 11:00; Stop 06/14/17 at 13:40; Status DC Morphine Sulfate (Morphine Inj) 8 mg ONCE ONCE IV PUSH Last administered on 11:20; Start 06/14/17 at 11:00; Stop 06/14/17 at 11:01; Status DC Heparin Sodium (Porcine) (Heparin Inj) 3,200 units ONCE ONCE IV Last administered on 06/14/17 12:43; Start 06/14/17 at 12:15; Stop 06/14/17 at 12:16 ; Status DC Heparin Sodium (Porcine) (Heparin Inj) 5,000 units UNSCH PRN IV APTT LESS THAN 25; Start 06/14/17 at 18:15; Stop 06/16/17 at 14:06; Status DC Heparin Sodium (Porcine) 2500 units 2,500 units UNSCH PRN IV APTT 25 TO 39 Last administered on 06/15/17 06:56; Start 06/14/17 at 18:15; Stop 06/16/17 at 14:06; Status DC Heparin Sodium/ Dextrose (Heparin-D5W Inj) 250 ml @ 0 mls/hr TITRATE IV Last administered on 06/14/17 12:45; Start 06/14/17 at 12:15; Stop 06/16/17 at 14:06 ; Status DC Nitroglycerin (Nitrostat Sl) 0.4 mg Q5M PRN SL CHEST PAIN; Start 06/14/17 at 12 :30; Stop 06/14/17 at 13:40; Status DC Sodium Polystyrene Sulfonate (Kayexalate Liq) 15 gm ONCE ONCE PO Last administered on 06/14/17 12:43; Start 06/14/17 at 12:30; Stop 06/14/17 at 12:31 ; Status DC Sodium Chloride (NS Flush) 2 ml BID IV FLUSH ; Start 06/14/17 at 21:00; Stop at 21:00; Status DC Sodium Chloride (NS Flush) 2 ml UNSCH PRN IV FLUSH FLUSH AFTER USING IV ACCESS ; Start 06/14/17 at 13:00; Stop 06/14/17 at 13:40; Status DC Nitroglycerin (Nitroglycerin 2% Oint) 2 inch Q1HR PRN TOP CHEST PAIN; Start at 13:00; Stop 06/14/17 at 14:05; Status DC Nitroglycerin (Nitrostat Sl) 0.4 mg Q5M PRN SL CHEST PAIN; Start 06/14/17 at 13 :00; Stop 06/14/17 at 13:40; Status DC Morphine Sulfate (Morphine Inj) 2 mg Q30M PRN IV CHEST PAIN Last administered on 06/16/17t 11:40; Start 06/14/17 at 13:00 Ondansetron HCl (Zofran Inj) 4 mg Q6H PRN IV NAUSEA OR VOMITING; Start at 13:00 Sodium Bicarbonate 50 meq 50 meq ONCE ONCE IV PUSH ; Start 06/14/17 at 13:30; Stop 06/14/17 at 13:38; Status DC Sodium Chloride (NS 1000 ml Inj) 1,000 ml @ 0 mls/hr Q0M PRN IV For Prime & Rinse Back Last administered on 06/14/17t 15:33; Start 06/14/17 at 13:28 Heparin Sodium (Porcine) 8000 units 8,000 units UNSCH PRN IVF WITH DIALYSIS; Start 06/14/17 at 13:30 Sodium Chloride 1,000 ml @ 200 mls/hr Q5H PRN IV WITH DIALYSIS; Start 06/14/17 at 13:28 Sodium Chloride (NS 1000 ml Inj) 1,000 ml @ 0 mls/hr Q0M PRN IV WITH DIALYSIS; Start 06/14/17 at 13:28 Mannitol (Mannitol Inj) 12.5 gm UNSCH PRN IV WITH DIALYSIS; Start 06/14/17 at 13:30 Albumin Human (Albumin 25% Inj) 25 gm UNSCH PRN IV WITH DIALYSIS; Start at 13:30 Sodium Chloride (NS Flush) 5 ml UNSCH PRN IV FLUSH WITH DIALYSIS; Start at 13:30 Heparin Sodium (Porcine) (Heparin Inj) UNSCH PRN .XX WITH DIALYSIS; Start at 13:30 Gentamicin Sulfate (Gentamicin (Dialysis) Inj) 20 mg UNSCH PRN IV WITH DIALYSIS ; Start 06/14/17 at 13:30 Ondansetron HCl (Zofran Inj) 4 mg UNSCH PRN IV WITH DIALYSIS; Start 06/14/17 at 13:30 Acetaminophen (Tylenol) 650 mg UNSCH PRN PO for headach, pain 1-10,T> 101F; Start 06/14/17 at 13:30 Diphenhydramine HCl (Benadryl) 25 mg UNSCH PRN PO for hives/itching/ anaphylaxis Last administered on 06/15/17 23:21; Start 06/14/17 at 13:30 Nitroglycerin (Nitrostat Sl) 0.4 mg UNSCH PRN SL CHEST PAIN; Start 06/14/17 at 13:30 Clonidine (Catapres) 0.1 mg UNSCH PRN PO for BP > 180/100 X 2 readings; Start 06/14/17 at 13:30 Gelatin (Gelfoam 12 Mm/7 Mm Top) 1 foam UNSCH PRN TOP SEE LABEL COMMENTS Last administered on 06/14/17 15:33; Start 06/14/17 at 13:30 Dextrose (D50w (Vial) Inj) 50 ml UNSCH PRN IV HYPOGLYCEMIA-SEE COMMENTS; Start 06/14/17 at 14:00 Glucagon (Glucagon Inj) 1 mg UNSCH PRN OTHER HYPOGLYCEMIA-SEE COMMENTS; Start 06/14/17 at 14:00 Insulin Aspart (NovoLOG SUPPLEMENTAL SCALE) 1 ACHS SLIDING SCALE SQ Last administered on 06/15/17 20:35; Start 06/14/17 at 16:00 Metoprolol Tartrate (Lopressor Inj) 5 mg Q5M IV PUSH ; Start 06/14/17 at 14:00; Stop 06/14/17 at 14:11; Status DC Metoprolol Tartrate (Lopressor) 25 mg ONCE ONCE PO Last administered on 14:35; Start 06/14/17 at 14:00; Stop 06/14/17 at 14:01; Status DC Metoprolol Tartrate (Lopressor) 25 mg Q8HR PO ; Start 06/14/17 at 14:00; Stop at 14:01; Status DC Nitroglycerin (Nitroglycerin 2% Oint) 2 inch Q6HR TOPICAL Last administered on 06/16/17 11:55; Start 06/14/17 at 18:00 Aspirin (Ecotrin Ec) 162 mg ONCE ONCE PO Last administered on 06/14/17 14:35 ; Start 06/14/17 at 14:00; Stop 06/14/17 at 14:01; Status DC Aspirin (Ecotrin Ec) 162 mg DAILY PO Last administered on 06/15/17 09:28; Start 06/15/17 at 09:00; Stop 06/15/17 at 14:58; Status DC Metoprolol Tartrate 25 mg 25 mg Q8HR PO Last administered on 06/16/17 14:16; Start 06/14/17 at 22:00 Heparin Sodium/ Sodium Chloride (Heparin-NS/Pf Inj) 500 ml @ As Directed STK- MED ONCE .ROUTE Last administered on 06/15/17 13:30; Start 06/15/17 at 13:30; Stop 06/15/17 at 13:31; Status DC Midazolam HCl (Versed Inj) 2 mg STK-MED ONCE .ROUTE Last administered on 13:48; Start 06/15/17 at 13:47; Stop 06/15/17 at 13:48; Status DC Heparin Sodium (Porcine) (Heparin Inj) 10,000 units STK-MED ONCE .ROUTE Last administered on 06/15/17 13:52; Start 06/15/17 at 13:51; Stop 06/15/17 at 13:52 ; Status DC Clopidogrel Bisulfate 600 mg 600 mg STK-MED ONCE .ROUTE ; Start 06/15/17 at 13: 59; Stop 06/15/17 at 14:00; Status DC Tirofiban/Sodium Chloride (Aggrastat Infusion Inj) 250 ml @ As Directed STK- MED ONCE IV ; Start 06/15/17 at 13:59; Stop 06/15/17 at 14:00; Status DC Clopidogrel Bisulfate (Plavix) 600 mg STK-MED ONCE .ROUTE ; Start 06/15/17 at 14 :04; Stop 06/15/17 at 14:05; Status DC Sodium Chloride (NS Flush) 2 ml UNSCH PRN .XX FLUSH AFTER USING IV ACCESS; Start 06/15/17 at 14:15 Sodium Chloride (NS Flush) 2 ml BID .XX Last administered on 06/15/17 19:15; Start 06/15/17 at 21:00 Aspirin (Aspirin Chew) 162 mg DAILY PO Last administered on 06/16/17 08:34; Start 06/16/17 at 09:00 Clopidogrel Bisulfate (Plavix) 600 mg ONCE ONCE PO ; Start 06/15/17 at 15:00; Stop 06/15/17 at 15:01; Status DC Clopidogrel Bisulfate 75 mg 75 mg DAILY PO Last administered on 06/16/17 08:34 ; Start 06/16/17 at 09:00 Tirofiban/Sodium Chloride (Aggrastat Infusion Inj) 250 ml @ 8.82 mls/hr Q24H IV Last administered on 06/15/17 15:09; Start 06/15/17 at 15:00; Stop at 14:59; Status DC Miscellaneous Information 1 ONCE ONCE XX ; Start 06/15/17 at 14:15; Stop at 15:09; Status DC Iohexol (OMNIPAQUE 350 INJ (Drilling And Production Superintendent)) 100 ml STK-MED ONCE OTHER ; Start at 15:05; Stop 06/15/17 at 15:06; Status DC Sevelamer Carbonate 800 mg 800 mg TIDAC PO ; Start 06/16/17 at 12:00 Heparin Sodium/ Sodium Chloride (Heparin-NS/Pf Inj) 500 ml @ As Directed STK- MED ONCE .ROUTE Last administered on 06/16/17 12:06; Start 06/16/17 at 12:06; Stop 06/16/17 at 12:07; Status DC Heparin Sodium (Porcine) (Heparin Inj) 10,000 units STK-MED ONCE .ROUTE ; Start 06/16/17 at 12:06; Stop 06/16/17 at 12:07; Status DC Midazolam HCl (Versed Inj) 2 mg STK-MED ONCE .ROUTE Last administered on 13:05; Start 06/16/17 at 13:02; Stop 06/16/17 at 13:03; Status DC Sodium Chloride (NS Flush) 2 ml UNSCH PRN .XX FLUSH AFTER USING IV ACCESS; Start 06/16/17 at 13:45 Sodium Chloride 2 ml 2 ml BID .XX ; Start 06/16/17 at 21:00 Tirofiban/Sodium Chloride (Aggrastat Infusion Inj) 250 ml @ 9.45 mls/hr Q24H IV ; Start 06/16/17 at 14:00; Stop 06/17/17 at 13:59 Miscellaneous Information 1 ONCE ONCE XX ; Start 06/16/17 at 13:45; Stop at 14:05; Status DC Bacitracin (Bacitracin Oint Packet) 0.9 gm ONCE ONCE TOP ; Start 06/16/17 at 15 :00; Stop 06/16/17 at 15:01; Status DC Past, Family & Social History Past Medical History Endocrine: REPORTS HX OF: Diabetes mellitus Cardiovascular: REPORTS HX OF: Angina, Coronary artery disease, Peripheral vascular dz Genitourinary: REPORTS HX OF: Kidney disease Past Surgical History Cardiovascular: REPORTS HX OF: Angioplasty, Coronary stent Review of Systems Constitutional: DENIES: Good general health Cardiovascular: COMPLAINS OF: Heart Disease Genitourinary: COMPLAINS OF: Renal disease, Dialysis Exam-Podiatry Constitutional General appearance: comfortable Nutritional status: underweight Orientation: alert and oriented x3 Dermatological Exam Skin Temp - Right: Within Normal Limits Skin Texture - Right: Within Normal Limits Skin Elasticity - Right: Within Normal Limits Skin Tugor - Right: Within Normal Limits Hair Growth - Right: Within Normal Limits Pigmentation - Right: Within Normal Limits Skin Temp - Left: Within Normal Limits Skin Texture - Left: Within Normal Limits Skin Elasticity - Left: Within Normal Limits Skin Tugor - Left: Within Normal Limits Hair Growth - Left: Within Normal Limits Pigmentation - Left: Within Normal Limits Ulcers: Location/Measurements Ulceration left arch with dry necrotic eschar surrounding area. No ascending cellulitis noted Vascular/Lymphatic Exam R Dorsails Pedis: Absent L Dorsails Pedis: Absent R Posterior Tibial: Absent L Posterior Tibial: Absent Neurologic Exam Details No neurological deficits seen Lab and Radiology Results Laboratory Laboratory Tests Test 06/15/17 06/16/17 04:50 05:30 White Blood Count 4.7 TH/MM3 4.9 TH/MM3 Red Blood Count 5.21 MIL/MM3 4.53 MIL/MM3 Hemoglobin 15.1 GM/DL 12.7 GM/DL Hematocrit 46.9 % 40.7 % Mean Corpuscular Volume 90.1 FL 89.8 FL Mean Corpuscular Hemoglobin 28.9 PG 28.1 PG Mean Corpuscular Hemoglobin 32.1 % 31.3 % Concent Red Cell Distribution Width 15.2 % 15.5 % Platelet Count 153 TH/MM3 147 TH/MM3 Mean Platelet Volume 10.4 FL 9.6 FL Neutrophils (%) (Auto) 49.3 % 52.6 % Lymphocytes (%) (Auto) 30.7 % 27.0 % Monocytes (%) (Auto) 14.3 % 15.7 % Eosinophils (%) (Auto) 4.4 % 4.1 % Basophils (%) (Auto) 1.3 % 0.6 % Neutrophils # (Auto) 2.3 TH/MM3 2.6 TH/MM3 Lymphocytes # (Auto) 1.4 TH/MM3 1.3 TH/MM3 Monocytes # (Auto) 0.7 TH/MM3 0.8 TH/MM3 Eosinophils # (Auto) 0.2 TH/MM3 0.2 TH/MM3 Basophils # (Auto) 0.1 TH/MM3 0.0 TH/MM3 CBC Comment DIFF FINAL DIFF FINAL Differential Comment Laboratory Tests Test 06/15/17 06/15/17 06/15/17 06/16/17 00:20 04:50 20:15 05:30 Total Creatine Kinase 276 U/L 262 U/L 89 U/L Creatine Kinase MB 42.8 NG/ML 35.2 NG/ML Creatine Kinase MB % 15.5 % 13.4 % Troponin I 18.90 NG/ML 24.00 NG/ML Sodium Level 132 MEQ/L 136 MEQ/L Potassium Level 3.7 MEQ/L 3.7 MEQ/L Chloride Level 96 MEQ/L 95 MEQ/L Carbon Dioxide Level 23.9 MEQ/L 26.7 MEQ/L Anion Gap 12 MEQ/L 14 MEQ/L Blood Urea Nitrogen 57 MG/DL 68 MG/DL Creatinine 7.98 MG/DL 9.22 MG/DL Estimat Glomerular Filtration 6 ML/MIN 5 ML/MIN Rate Random Glucose 290 MG/DL 136 MG/DL Calcium Level 8.0 MG/DL 8.3 MG/DL Total Bilirubin 0.4 MG/DL 0.4 MG/DL Aspartate Amino Transf 69 U/L 60 U/L (AST/SGOT) Alanine Aminotransferase 42 U/L 39 U/L (ALT/SGPT) Alkaline Phosphatase 224 U/L 222 U/L Total Protein 6.8 GM/DL 6.6 GM/DL Albumin 2.6 GM/DL 2.5 GM/DL Phosphorus Level 8.2 MG/DL Direct Bilirubin 0.1 MG/DL Indirect Bilirubin 0.3 MG/DL Triglycerides Level 62 MG/DL Cholesterol Level 159 MG/DL LDL Cholesterol 83 MG/DL HDL Cholesterol 63.9 MG/DL Cholesterol/HDL Ratio 2.48 RATIO Microbiology Date/Time Procedure Status Source Growth 06/15/17 04:00 Aerobic Blood Culture Received Blood Peripheral Pending 06/15/17 04:00 Anaerobic Blood Culture Received Blood Peripheral Pending 06/15/17 04:50 Aerobic Blood Culture - Preliminary Resulted Blood Peripheral NO GROWTH IN 1 DAY 06/15/17 04:50 Anaerobic Blood Culture - Preliminary Resulted Blood Peripheral NO GROWTH IN 1 DAY 06/15/17 04:58 Aerobic Blood Culture - Preliminary Resulted Blood Peripheral NO GROWTH IN 1 DAY 06/15/17 04:58 Anaerobic Blood Culture - Final Resulted Blood Peripheral QNS - SEE AEROBE REPORT Radiology Last Impressions Chest X-Ray 06/14/17 1050 Signed Impressions: Service Date/Time: Wednesday, June 14, 2017 10:46 - CONCLUSION: Borderline cardiomegaly. María Elena Hdez MD Foot X-Ray 06/14/17 0000 Signed Impressions: Service Date/Time: Wednesday, June 14, 2017 13:52 - CONCLUSION: Chronic changes and no evidence for acute fracture. María Elena Hdez MD Assessment/Plan Problem List: (1) Diabetes type 2, controlled Status: Chronic (2) ESRD (end stage renal disease) on dialysis Status: Chronic (3) Ulcer of left foot Status: Chronic Additional Plans & Procedures PLAN: Ordered CTA with runoff to evaluate circulation distally lower extremities. Ordered Maxorb extra AG dressings. May consider OR debridement on Thursday pending CTA results. We'll continue to follow Problem Qualifiers (1) Diabetes type 2, controlled: Qualified Code: E11.51 - Controlled type 2 diabetes mellitus with diabetic peripheral angiopathy without gangrene, without long-term current use of insulin (2) Ulcer of left foot: Qualified Code: L97.522 - Ulcer of left foot, with fat layer exposed Noman Quintanilla DPM Jun 16, 2017 16:55
--- NOTE | 2017-06-16 16:58 | EKG ---
Date Performed: 06/16/2017 Time Performed: 14:22:00 PTAGE: 57 years EKG: Sinus rhythm . Prolonged QT interval Leftward axis Inferior infarct - age undetermined Anteroseptal infarct - age undetermined Lateral ST-T changes Abnormal ECG PREVIOUS TRACING : 06/16/2017 04.48 Compared to prior tracing no significant change DOCTOR: Kiran Jurado Interpretating Date/Time 06/16/2017 16:57:36
[2017-06-16] MEDS: diphenhydrAMINE HCL 25 MG CAP PO PRN (23:36)
[2017-06-17] VITALS (29 sets, daily range): BP systolic 90–159; BP diastolic 7–88; PULSE 56–82; RESP 14–20; TEMP 98.4–99.2; O2SAT 93–100
[2017-06-17 04:49] LABS: AUTOMATED NEUTROPHIL # 2.5 TH/MM3 (1.8-7.7); EOSINOPHIL # 0.2 TH/MM3 (0-0.4); EOSINOPHIL % 4.4 % (0.0-4.0); HEMATOCRIT 38.8 % (35.0-46.0); HEMO FLAGS DIFF FINAL; LYMPH % 24.6 % (9.0-44.0); LYMPHOCYTE # 1.2 TH/MM3 (1.0-4.8); MEAN CELL VOLUME 88.4 FL (80.0-100.0); MEAN CORPUSCULAR HEMOGLOBIN 28.6 PG (27.0-34.0); MEAN CORPUSCULAR HGB CONC 32.4 % (32.0-36.0); MONO % 18.2 % (0.0-8.0); NEUT % 51.8 % (16.0-70.0); PLATELET COUNT 144 TH/MM3 (150-450); RED BLOOD COUNT 4.39 MIL/MM3 (4.00-5.30); RED CELL DISTRIBUTION WIDTH 15.5 % (11.6-17.2); WHITE BLOOD COUNT 4.8 TH/MM3 (4.0-11.0)
[2017-06-17 05:03] LABS: BICARBONATE 26.4 MEQ/L (21.0-32.0); POTASSIUM 3.9 MEQ/L (3.5-5.1)
[2017-06-17] MEDS: INSULIN ASPART SUPPLEMENTAL SCALE SQ SCH ×4 (05:50→20:58)
[2017-06-17] MEDS: METOPROLOL TARTRATE 25 MG TAB PO SCH ×3 (05:50→20:59)
[2017-06-17] MEDS: NITROGLYCERIN 2% OINT 1 GM PACKET TOPICAL SCH ×4 (05:50→23:24)
[2017-06-17] MEDS: diphenhydrAMINE HCL 25 MG CAP PO PRN ×3 (08:30→23:24)
[2017-06-17] MEDS: ASPIRIN 81 MG CHEW TAB PO SCH (08:30)
[2017-06-17] MEDS: SODIUM CHLORIDE 0.9% FLUSH 10 ML FLUSH SCH ×3 (08:31→20:59)
[2017-06-17] MEDS: CLOPIDOGREL 75 MG TAB PO SCH (08:31)
[2017-06-17] MEDS: MORPHINE SULFATE 4 MG/ML INJ IV PRN ×4 (08:32→23:32)
--- NOTE | 2017-06-17 09:25 | HHI.NPPN ---
Subjective Renal Failure: Chronic, End Stage Renal Disease Interval History Resting currently. She is still on heparin and Aggrastat drips. Had dialysis yesterday. ([facility] [place]) Review of Systems Cardiovascular Cardiac: Chest Pain ([facility] [place]) Skin Skin: Ulcers ([facility] [place]) Objective Data Data 06/16/17 06/17/17 18:59 06:59 Intake Total 240 ml 240 ml Output Total 1500 ml 0 ml Balance -1260 ml 240 ml Intake Oral 240 ml 240 ml Output Urine Total 0 ml Stool Total 0 ml Hemodialysis 1500 ml Vital Signs Date Time Temp Pulse Resp B/P Pulse Ox O2 Delivery O2 Flow Rate FiO2 06/17/17 09:13 93 21 06/17/17 09:00 79 06/17/17 08:00 79 06/17/17 07:19 81 06/17/17 07:15 99.2 81 18 140/7 97 06/17/17 06:00 64 06/17/17 05:00 64 06/17/17 04:46 72 06/17/17 04:00 70 20 90/55 98 06/17/17 03:00 64 06/17/17 02:00 64 06/17/17 01:00 66 06/17/17 00:00 72 06/17/17 00:00 98.4 77 20 159/78 98 06/16/17 23:00 66 06/16/17 22:00 64 06/16/17 21:00 68 06/16/17 20:00 98.1 69 20 114/58 98 06/16/17 20:00 68 06/16/17 19:00 60 06/16/17 18:00 60 06/16/17 17:17 98 21 06/16/17 17:00 59 06/16/17 16:00 69 06/16/17 15:00 98.4 75 20 131/77 98 06/16/17 15:00 65 06/16/17 14:00 66 06/16/17 12:00 64 06/16/17 11:00 98.7 64 16 125/64 100 06/16/17 11:00 64 06/16/17 10:00 64 ([facility]) -: 06/17/17 0410 06/17/17 0410 Imaging Last 72 hours Impressions Chest X-Ray 06/14/17 1050 Signed Impressions: Service Date/Time: Wednesday, June 14, 2017 10:46 - CONCLUSION: Borderline cardiomegaly. María Elena Hdez MD Drip Comment Aggrastat, heparin ([facility]. EXTRUDER OPERATOR) Physical Exam General Appearance: Well Developed, Well Nourished, No Acute Distress, Comfortable, Sleeping ([facility] [place] B. EXTRUDER OPERATOR) Eyes Eye Exam: Pupils Equal ([facility]. EXTRUDER OPERATOR) Throat Throat Exam: Oral Mucosa [place] & Moist ([facility]. EXTRUDER OPERATOR) Pulmonary Resp Exam: Clear Bilaterally, Breath Sounds Equal ([facility] [place] B. EXTRUDER OPERATOR) Cardiology CV Exam: Regular, Normal Sinus Rhythm ([facility] [place] B. EXTRUDER OPERATOR) Gastrointestinal/Abdomen GI Exam: Soft, Non-Tender, Bowel Sounds Present ([facility] [place] B. EXTRUDER OPERATOR) Musculoskeletal MS Exam: Normal Tone ([facility] [place] B. EXTRUDER OPERATOR) Integumentary Skin Exam: Warm, Dry Skin Remarks ulcer plantar surface ([facility] [place] B. EXTRUDER OPERATOR) Extremeties Extremities Exam: No Edema, Pedal Pulses Palpable Extremeties Remarks left arm AVF + thrill/bruit ([facility] [place] B. EXTRUDER OPERATOR) Neurologic Neuro Exam: Alert, Awake, Oriented, Speech Clear, Moving All Extremities ( [facility] [place] B. EXTRUDER OPERATOR) Psychiatric Psych Exam: Appropriate Responses ([facility] EXTRUDER OPERATOR) Assessment/Plan Discussed Condition With: Patient Assessment Summary: Hypertension, Diabetes Mellitus, End Stage Renal Disease Problem List: (1) ESRD (end stage renal disease) on dialysis Plan: dialyzed yesterday, 1500 ml UF repeat HD today after CT angio, then continue per usual MWF schedule monitor electrolytes intermittently avoid IVF high protein diet encouraged on Renvela for metabolic bone disorder, dosage increased PTH ordered, start Sensipar 30 mg for secondary hyperparathyroidism (2) NSTEMI (non-ST elevated myocardial infarction) Plan: s/p cath 06/15 with bare metal stent to LAD repeat cath 06/16 cardiology following on Aggrastat and hepatin gtts, also ASA, Plavix, and beta christofer (3) Ulcer of left foot Plan: podiatry has been consulted CTA with runoff ordered may require wound debridement (4) Diabetes type 2, controlled Plan: continue insulin support, monitor glucose (5) Hypertension Plan: BP marginal continue home medications with hold parameters (6) Hyperkalemia Plan: repeat potassium is acceptable monitor ([facility]) Plan patient was seen and examined. S/p cardiac cath and stent. Aortogram and runoff apparently planned. Podiatry to see. (Nazario Ahumada MD) Problem Qualifiers (1) Ulcer of left foot: Qualified Code: L97.522 - Ulcer of left foot, with fat layer exposed (2) Diabetes type 2, controlled: Qualified Code: E11.51 - Controlled type 2 diabetes mellitus with diabetic peripheral angiopathy without gangrene, without long-term current use of insulin [facility] Jun 17, 2017 09:25 Nazario Ahumada MD Jun 18, 2017 07:37
--- NOTE | 2017-06-17 11:44 | HHI.FPPN ---
Subjective Remarks Patient seen and examined this morning. Patient states that she did not wish to be examined yesterday because she was frustrated and still had significant pain at the time. She cooperated with the interview today. She states that her chest pain is improved from yesterday, as well as overall from admission. No complaints of shortness of breath, pain radiating to the back, difficulty breathing, N/V/F/C, abdominal pain, change in urinary or bowel habits. Patient notes that her left foot is itchy. Objective Vitals Vital Signs Date Time Temp Pulse Resp B/P Pulse Ox O2 Delivery O2 Flow Rate FiO2 06/17/17 10:02 73 06/17/17 09:13 93 21 06/17/17 09:00 79 06/17/17 08:00 79 06/17/17 07:19 81 06/17/17 07:15 99.2 81 18 140/7 97 06/17/17 06:00 64 06/17/17 05:00 64 06/17/17 04:46 72 06/17/17 04:00 70 20 90/55 98 06/17/17 03:00 64 06/17/17 02:00 64 06/17/17 01:00 66 06/17/17 00:00 72 06/17/17 00:00 98.4 77 20 159/78 98 06/16/17 23:00 66 06/16/17 22:00 64 06/16/17 21:00 68 06/16/17 20:00 98.1 69 20 114/58 98 06/16/17 20:00 68 06/16/17 19:00 60 06/16/17 18:00 60 06/16/17 17:17 98 21 06/16/17 17:00 59 06/16/17 16:00 69 06/16/17 15:00 98.4 75 20 131/77 98 06/16/17 15:00 65 06/16/17 14:00 66 06/16/17 12:00 64 I/O 06/16/17 06/16/17 06/16/17 06/17/17 06/17/17 06/17/17 07:00 15:00 23:00 07:00 15:00 23:00 Intake Total 240 ml 240 ml 240 ml Output Total 0 ml 1500 ml 0 ml Balance 240 ml -1260 ml 240 ml Intake Oral 240 ml 240 ml 240 ml Output Urine Total 0 ml 0 ml Stool Total 0 ml 0 ml Hemodialysis 1500 ml Result Diagram: 06/17/1740906/17/17409 Objective Remarks GENERAL: Non confrontational today, laying in bed SKIN: Warm and dry. HEAD: Atraumatic. Normocephalic. EYES: Pupils equal and round. No scleral icterus. No injection or drainage. ENT: No nasal bleeding or discharge. Mucous membranes pink and moist. NECK: Trachea midline. No JVD. CARDIOVASCULAR: Regular rate and rhythm. RESPIRATORY: No accessory muscle use. Clear to auscultation. Breath sounds equal bilaterally. GASTROINTESTINAL: Abdomen soft, non-tender, nondistended. Hepatic and splenic margins not palpable. MUSCULOSKELETAL: Extremities without clubbing, cyanosis, or edema. No obvious deformities. NEUROLOGICAL: Awake and alert. No obvious cranial nerve deficits. Motor grossly within normal limits.Normal speech. PSYCHIATRIC: Appropriate mood and affect; insight and judgment normal. SURGICAL: Right inguinal area inspected. Tender to palpation. Sheath in place, no active bleeding, erythema, discharge, edema. A/P Assessment and Plan Patient is a 57 year old female with past history of ESRD and diabetes who complains of chest pain.The pain started at 1:30am (06/15), was a sharp pain in the center of her chest which did not radiate. No pain in left arm or jaw. Noted excessive sweating, nausea, hot and cold intolerance, a brief dimming of her vision, and shortness of breath during the beginning of the chest pain. No vomiting, fever, chills, change in bowel habits, change in urinary habits, headache, dizziness, lightheadedness, weakness, numbness, tingling. No blurry vision/diplopia/other change in vision at time of admission. Patient states that at her last dialysis visit labs were drawn and were normal at that time. Potassium 6.4 in the ED, Troponins 1.65 and creatinine 8.73 which is similar to past reported creatinines (7.88 in 08/22/16). Incidentally notes healing left foot wound, previously debrided approximately 6 months ago at a different hospital. She said there was "no bone infection" at the time. She states that the wound is currently mildly painful, not hot. Ulcer large in size with packing in place which patient states she changes every 3 days for the past 6 months. Currently S/P 2 catheterizations, to be catheterized again today. Problem List: (1) NSTEMI (non-ST elevated myocardial infarction) Status: Acute Plan: Resting chest pain starting at 1:30 am 06/14. No significant improvement at admission. Per ED note, no ST elevation noted on ECG in ED. Troponin 1.65 at admission, . Troponins were to be drawn Q6 x3. Second set of troponins delayed due to the patient being in dialysis at the time of the blood draw. Contacted Dialysis which confirmed her troponins could not be obtained at that time. Cardiac catheterization performed 06/16/17 * Catheterization, 06/16, 06/17, third catheterization to occur this afternoon * F/U cardiology recommendations * Troponins 1.65 @ 1105 (06/14), 18.90 @ 0020 (06/15) , 24.00 @ 0450 * ASA 162 mg daily * Morphine for pain control * Metoprolol 25mg q8 * Nitroglycerin (2) Hyperkalemia Status: Acute Plan: ESRD and hyperkalemia. * Dialysis 06/14, 06/16 * Follow potassium and treat as needed * Nephrology consulted, follow recommendations (3) Ulcer of left foot Status: Chronic Plan: 6 month old ulcer of left foot which had been debrided at different hospital. Patient reported that she has been changing the dressing and packing every 3 days. * Maintain clean and dry * Wound care called and advised debridement of large eschar on bottom of foot for better treatment, consulted podiatry. * Podiatry order CTA foot with runoff, they will evaluate and determine possible OR debridement * Appreciate podiatry recommendations * Itchy, prescribed Benadryl (4) ESRD (end stage renal disease) on dialysis Status: Chronic Plan: ESRD with creatinine 8.73 and hyperkalemia on admission. * Dialysis 06/14, again 06/16 * Will restart MWF dialysis * Follow nephrology recommendations (5) Diabetes type 2, controlled Status: Chronic Plan: Diabetes type 2, non insulin dependent, reported as well controlled. * Discontinue home medications * low dose sliding scale insulin (6) Hypertension Status: Acute Plan: Hypertension at home, controlled with home medications. Currently ongoing NSTEMI * Continue home amlodipine 5mg if elevated * Follow cardiology recommendations (7) FEN Status: Acute Plan: Fluids - NPO until catheterizations Electrolytes - hyperkalemia and ESRD, Follow and correct as necessary Nutrition -NPO until catheterization Code -Full DVT proph - on plavix, SCDs Problem Qualifiers (1) Ulcer of left foot: Qualified Code: L97.522 - Ulcer of left foot, with fat layer exposed (2) Diabetes type 2, controlled: Qualified Code: E11.51 - Controlled type 2 diabetes mellitus with diabetic peripheral angiopathy without gangrene, without long-term current use of insulin Baudilio Bain MD R1 Jun 17, 2017 11:44
[2017-06-17] MEDS: CINACALCET HYDROCHLORIDE 30 MG TAB PO SCH (13:04)
[2017-06-17] MEDS: SEVELAMER CARBONATE 800 MG TAB PO SCH ×2 (13:04→17:49)
[2017-06-17] MEDS ORDERED: IOHEXOL 350 MG/ML 100 ML BTL (for Cath Lab) OTHER ONE (13:23)
[2017-06-17] MEDS ORDERED: HEPARIN-NS/PF INJ 500 ML ONE (13:37)
[2017-06-17] MEDS ORDERED: HEPARIN SODIUM - IV 10,000 UNITS/10 ML VIAL ONE (13:37)
[2017-06-17] MEDS ORDERED: MIDAZOLAM HCL 2 MG/2 ML VIAL ONE (13:59)
[2017-06-17] MEDS ORDERED: TIROFIBAN INFUSION INJ 250 ML IV SCH (14:24)
--- NOTE | 2017-06-17 14:25 | CATHPROC ---
Nutshell HIS Report Study Information Study Number Admission Scheduled Start Study Start [id number] Jun 14 2017 12:47PM 06/17/2017 Jun 17 2017 1:12PM [place] [facility] Cardiac Catheterization Admit Source Facility Department Emergency department [facility] - Farm Operations Manager Physician and Clinical Staff Initial Arsenio Toro Business Administration InstructorPietro Martinez,SRIDEVI Business Administration Instructornaomie Clark RN, Michael Recorder Eduardo, Chantale,RT(R) [place], Sheela,FIELD MARKETER TECH2 Procedures Performed Procedure Location (Site) Vessel Name Coronary Angiograms LCA Left Coronary Coronary Angiograms RAMUS CIRC L Heart Cath PTCA RAMUS CIRC PTCA ADD ON'S Stent RAMUS CIRC Wire insertion Fem Art (right) Femoral Art Equipment Time Supervisor Pumping Description Size Mfg Part Number Used/Scraped [id number] 13:55 [employer]ORDOVA [employer] WIRE, ASAHI PROWATER 180CM 180CM Used *[id number] TRANSDUCER, TRUWAVE [id number] 13:13 MCKEON PANDYA * Used W/STOCKCOCK *[id number] 14:03 CORDIS/ SUHAIL SHEATH, FR6 BRITE TIP 11CM FR 6 11CM [id number] Used [id number] *[id number] 13:13 Promosome INDUSTRIES PACK, CCL CUSTOM * Used *[id number] 13:13 Promosome PACER PEN, SKIN DUAL W/ RULER * Used *[id number] 14:08 MEDTRONIC BALLOON, 2.5 X 10MM EUPHORA 10MM Used *[id number] 14:11 MEDTRONIC STENT, 2.5 8 INTEGRITY 2.5 8 Used *[id number] 14:05 TNT Crowd MEDICAL 30 YOON INDEFLATOR Used *[id number] 14:04 [employer] MEDICAL SHEATH, FR6.5 PRELUDE 11CM FR 6.5 038ACT Used *[id number] 13:13 [employer]NT [employer] MEDICAL WIRE, 3MMJ .035 180CM 180CM Used *[id number] 13:13 NAMIC MANIFOLD, 4 PORT * Used *[id number] 14:05 NYCOMED OMNIPAQUE, 300 MG, 50ML 50ML [id number] Used 14:05 NYCOMED OMNIPAQUE, 350 MG, 150ML 150ML [id number] Used 13:13 NYCOMED OMNIPAQUE, 350 MG, 150ML 150ML [id number] Used [id number] 13:13 PICHARDO MEDICAL BLANKET,WARM AIR CCL * Used *[id number] 13:13 TERUMO MEDICAL SHEATH, FR4 TERUMO (10CM) FR 4 Used *[id number] Equipment Model, Serial, Lot Number and Expiration Data Description Model Number Serial Number Lot Number Expiration Date STENT, 2.5 8 INTEGRITY [id number] 01-09-2019 History: Current Medications Medication Dosage/Unit Route Frequency Last Date/Time Taken ASA History: Allergies Allergy Reaction Latex History: Risk Factors Family History of Hypertension Dyslipidemia Previous MO Previous Heart Failure Premature CAD Yes No Yes Yes Yes Prior Valve Prior PCI Prior CABG Surgery No No No Cerebrovascular Peripheral Artery Chronic Lung On Dialysis Diabetes Diabetes Therapy Disease Disease Disease Yes No No No Yes Oral History: Symptoms/Diagnosis Selection Items Chest pain SOB History: CV Disease Selection Items Known CAD History: Stress Tests Stress or Imaging Studies Performed No History: Other Disease Selection Items Hepatitis History: Other Current Smoker No Labs Hgb (g/dl) WBC (l/cumm) Platelets (thousands) 11.60-17.00 4.00-11.00 150.00-450.00 12.6 4.8 144 Glucose (mg/dl) BUN (mg/dl) Creatinine (mg/dl) BUN:Creatinine (1:x) 74.00-106.00 7.00-18.00 0.50-1.30 10.00-20.00 130 50 6.7 7.5 Na (meq/l) K (meq/l) 136.00-145.00 3.50-5.10 134 3.9 INR (PTT:PT) 0.90-1.10 1.1 Troponin I (ng/ml) CPK (u/l) CPK-MB (ng/ML) 0.02-0.05 26.00-308.00 0.50-3.60 24 79 Not Drawn Medication Medication Total Dose (Bolus/Oral) Medication Total Dosage/Unit 1% XYLOCAINE 20 mL HEPARIN 3700 units VERSED 0.5 mg Medications (Bolus/Oral) Medication Time Given Dosage/Unit Administered By Reason VERSED 06/17/2017 2:00:32 PM 0.5 mg Michael Clark RN 0.5 mg VERSED given in lab by Michael Clark RN via Peripheral IV. Ordered by Arsenio Dowd. 1% XYLOCAINE 06/17/2017 2:02:35 PM 20 mL Arsenio Dowd 20 mL 1% XYLOCAINE given in lab by Arsenio Dowd in Right Groin via Subcutaneous. HEPARIN 06/17/2017 2:04:01 PM 3700 units Michael Clark RN 3700 units HEPARIN given in lab by Michael Clark RN via Peripheral IV. Medication (Drip) Medication Time Given Dosage/Unit Concentration/Unit Diluent (ml) Solution AGGRASTAT DRIP 06/17/2017 1:23:55 PM 0.035 mcg/kg/min 12.5 mg 250 NaCl .9 Patient arrived on 0.035 mcg/kg/min AGGRASTAT DRIP in Right Wrist via Peripheral IV. Pump/Drip Flow = 2.2 ml/hr using NaCl .9 with a concentration of 12.5 mg in 250 ml. Ordered by Arsenio Dowd. IV Solutions 06/17/2017 1:23:44 PM 50 mL (IV) 500 NaCl .9 Patient arrived on IV Solutions in Right Wrist via Peripheral IV. Pump/Drip Flow using NaCl .9. Initial Case Assessment Cardiovascular HR Rhythm NIBP Chest Pain 70 sr 124/71 0 Edema Present Skin color Skin None Normal Warm Circulatory - Right Pulses Dorsalis Pedis Femoral 3 3 Scale (0,1,2,3,4,d) Circulatory - Left Pulses Dorsalis Pedis Femoral 3 3 Scale (0,1,2,3,4,d) Circulatory - Lower Extremities Color Lower Right Color Lower Left Normal Normal Neurological State Oriented to time-place- Alert Moves all extremities person Respiration - General Respiration Rate SpO2 (%) (B/min) 9 93 Final Case Assessment Cardiovascular HR Rhythm NIBP Chest Pain 78 ewg 134/73 0 Edema Present Skin color Skin None Normal Warm Circulatory - Right Pulses Dorsalis Pedis Femoral 2 2 Scale (0,1,2,3,4,d) Circulatory - Left Pulses Dorsalis Pedis Femoral 2 2 Scale (0,1,2,3,4,d) Neurological State Oriented to time-place- Alert Moves all extremities person Respiration - General Respiration Rate SpO2 (%) (B/min) 16 95 Chronological Log Time Study Chronological Log 13:23:30 Patient arrived via Bed. 13:23:31 Patient Name, D.O.B, / Armband Verified By R.N. 13:23:32 Consent signed by the physician and the patient and verified by the Farm Operations Manager staff. 13:23:33 Pre-op and post- op instructions given; patient acknowledges understanding of instructions. 13:23:34 Verbal Stimulation=2 Physical Stimulation=2 Airway=2 Respiration=2 TOTAL=8. (0=absent, 1=li mited, 2=present) 13:23:36 Presedation assessment performed by Farm Operations Manager RN. 13:23:38 Patient has been NPO for More than 6Hrs. 13:23:39 Skin Zvbjzmrsy-yhn-glmvbpg wound left foot 13:23:41 Johan Prominences Protected 13:23:43 A # 20 IV was noted in the Wrist (right). Grade = patent 13:23:44 Patient arrived on IV Solutions in Right Wrist via Peripheral IV. Pump/Drip Flow using NaCl .9. Patient arrived on 0.035 mcg/kg/min AGGRASTAT DRIP in Right Wrist via Peripheral IV. Pump/Drip Flow = 2.2 ml/hr 13:23:55 using NaCl .9 with a concentration of 12.5 mg in 250 ml. Ordered by Arsenio Dowd. Vitals capture started with the following parameters, Patient=Adult, Interval=5 min, Initial Pr adjkzi=772 mmHg, 13:29:05 Deflation Rate=5 mmHg 13:32:01 History and physical on the chart or being dictated. Assessment: Initial Case, HR=70 BPM, Rhythm=sr, GAAQ=643/71 mmhg, Chest Pain=0, Edema=None, Col or=Normal, Skin = Warm Right Pulses: Jefry Ped=3, Femoral=3 Left Pulses: Jefry Ped=3, Femoral=3 13:32:08 Lower Right Extremities: Color=Normal Lower Left Extremities: Color=Normal Neurological: State=Alert, Ox3, ROBERTSON Respiration: Resp=9 B/min, SpO2=93 % Vitals capture started with the following parameters, Patient=Adult, Interval=5 min, Initial Pr peikug=513 mmHg, 13:32:16 Deflation Rate=5 mmHg 13:32:29 Reference ECG taken 13:32:51 HR=69 bpm, WMNB=760/71 mmhg, SpO2=95 %, Resp=8 B/min, Pain=0, Zofia=10, Browning=2 13:37:13 Bilateral groins prepped with 2% chlorhexidine, and with a 3 min. waiting time. 13:37:50 paged 13:38:25 HR=71 bpm, UGBI=431/74 mmhg, SpO2=96 %, Resp=10 B/min, Zofia=10 13:42:51 HR=74 bpm, DGQL=275/71 mmhg, SpO2=95.0 %, Resp=10 B/min, Pain=0, Zofia=10, Browning=2 13:47:51 HR=68 bpm, MSGC=251/69 mmhg, SpO2=96 %, Resp=12 B/min, Pain=0, Zofia=10, Browning=2 13:52:48 HR=82 bpm, DFDZ=910/81 mmhg, SpO2=95 %, Resp=20 B/min, Pain=0, Zofia=10, Browning=2 13:56:53 Pressure channel 1 zeroed. 13:57:53 HR=75 bpm, CMAK=658/77 mmhg, SpO2=94.0 %, Resp=20 B/min, Pain=0, Zofia=10, Browning=2 13:58:07 MD arrived. 14:00:32 0.5 mg VERSED given in lab by Michael Clark RN via Peripheral IV. Ordered by Jigna Dowd Time Out. Correct patient, correct procedure,correct physician, ,power injector not loaded with contrast with surgical 14:00:44 team present. Time Out Concurred by MD, individual staff and TELEMETRY REGISTERED NURSE in procedure 14:00:58 Case Start 14:00:59 Verbal Stimulation=2 Physical Stimulation=2 Airway=2 Respiration=2 TOTAL=8. (0=absent, 1=li mited, 2=present) 14:02:35 20 mL 1% XYLOCAINE given in lab by Arsenio Dowd in Right Groin via Subcutaneous. 14:02:52 HR=83 bpm, LMSJ=999/78 mmhg, SpO2=96.0 %, Resp=20 B/min, Pain=0, Zofia=10, Browning=2 A SHEATH, FR6.5 PRELUDE 11CM FR 6.5 was exchanged in the Fem Art (right). This was necessary in order to insure 14:03:04 sterility. 14:04:01 3700 units HEPARIN given in lab by Michael Clark RN via Peripheral IV. A XB 4.0 GUIDE CATHETER FR 6 was advanced over a wire. OMNIPAQUE, 350 MG, 150ML 150ML was used for 14:04:47 injections. 14:04:58 OMNIPAQUE, 350 MG, 150ML 150ML and 30 YOON INDEFLATOR added. Recorded Pressure: Ao, HR=75, Condition=Condition 1 14:06:13 (Aorta) Ao 142/64/92 14:07:39 A WIRE, ASAHI PROWATER 180CM 180CM was inserted via Fem Art (right). 14:07:51 HR=79 bpm, JEHB=469/74 mmhg, SpO2=95 %, Resp=22 B/min, Pain=0, Zofia=10, Browning=2 14:08:11 Interventional wire has crossed the lesion 14:08:16 The RAMUS was injected and visualized at various angles. OMNIPAQUE, 350 MG, 150ML 150ML use d. 14:08:31 A BALLOON, 2.5 X 10MM EUPHORA 10MM was inserted over WIRE, ASAHI PROWATER 180CM 180CM via t he RAMUS. A BALLOON, 2.5 X 10MM EUPHORA 10MM over a WIRE, ASAHI PROWATER 180CM 180CM in the RAMUS was inf lated 14:09:43 using a 30 YOON INDEFLATOR at 7 yoon for 13 sec. 14:11:06 Balloon Removed. An STENT, 2.5 8 INTEGRITY 2.5 8 Bare Metal Stent was inserted through a XB 4.0 GUIDE CATHETER F R 6 over a 14:11:31 WIRE, ASAHI PROWATER 180CM 180CM. A STENT, 2.5 8 INTEGRITY 2.5 8 was deployed using a 30 YOON INDEFLATOR at 11 atmospheres for 16 seconds in the 14:12:35 RAMUS. 14:12:50 HR=76 bpm, FGYC=952/73 mmhg, SpO2=95 %, Resp=14 B/min, Pain=0, Zofia=10, Browning=2 14:13:38 Delivery device removed 14:14:47 The LCA was injected and visualized at various angles. OMNIPAQUE, 350 MG, 150ML 150ML use d. 14:14:55 Case End Assessment: Final Case, HR=78 BPM, Rhythm=ewg, LCRH=293/73 mmhg, Chest Pain=0, Edema=None, Col or=Normal, Skin = Warm Right Pulses: Jefry Ped=2, Femoral=2 14:14:57 Left Pulses: Jefry Ped=2, Femoral=2 Neurological: State=Alert, Ox3, ROBERTSON Respiration: Resp=16 B/min, SpO2=95 % 14:15:24 Catheter(s) removed without difficulty 14:15:29 In the Fem Art (right) the SHEATH, FR6.5 PRELUDE 11CM FR 6.[address] by Sheela Ortiz RCIS TECH2. 14:16:36 Sterile dressing applied to site 14:16:37 No case complications noted. 14:16:43 Cine recording checked. 14:16:44 Bedside Report will be given. 14:16:47 Implantable Device card placed in patient's chart. 14:16:47 Contrast Scanned 14:16:53 Verbal Stimulation=2 Physical Stimulation=2 Airway=2 Respiration=2 TOTAL=8. (0=absent, 1=l imited, 2=present) 14:17:00 A Left Heart Cath was performed. 14:17:08 Clinical correlaton risk stratification. 14:17:53 HR=78 bpm, RNDO=838/72 mmhg, SpO2=95 %, Resp=17 B/min, Pain=0, Zofia=10, Browning=2 14:18:29 ACT (Normal Range 90-180) = 258 14:23:14 Vitals capture stopped. End Study - Contrast Media Used In Study Contrast Total Opened (mL) Total Used (mL) Total Wasted (mL) Omnipaque 90 90 0 End Study - Maximum Contrast Load Max Contrast Load (mL) 38.8 End Study - Radiation Exposure Fluoro Time (minutes) 3.8 End Study - Patient Disposition Complications Transferred To Interventional Outcome No Regular Bed successful
[2017-06-17] MEDS ORDERED: SODIUM CHLORIDE 0.9% FLUSH 10 ML FLUSH PRN (14:30)
[2017-06-17] MEDS ORDERED: MISC INFORMATION XX ONE (14:30)
--- NOTE | 2017-06-17 20:38 | EKG ---
Date Performed: 06/17/2017 Time Performed: 05:01:08 PTAGE: 57 years EKG: Sinus rhythm Inferior infarct - age undetermined Anteroseptal infarct - age undetermined Lateral ST-T changes Abn ormal ECG PREVIOUS TRACING : 06/16/2017 14.22 Compared to prior tracing no significant change DOCTOR: Kiran Jurado Interpretating Date/Time 06/17/2017 20:37:28
[2017-06-18] VITALS (24 sets, daily range): BP systolic 109–139; BP diastolic 58–79; PULSE 58–75; RESP 13–20; TEMP 98–99.3; O2SAT 92–100
[2017-06-18] MEDS: MORPHINE SULFATE 4 MG/ML INJ IV PRN ×3 (04:41→20:45)
[2017-06-18] MEDS: INSULIN ASPART SUPPLEMENTAL SCALE SQ SCH ×4 (06:10→20:39)
[2017-06-18] MEDS: NITROGLYCERIN 2% OINT 1 GM PACKET TOPICAL SCH ×4 (06:17→23:40)
[2017-06-18] MEDS: METOPROLOL TARTRATE 25 MG TAB PO SCH ×3 (06:18→20:37)
--- NOTE | 2017-06-18 07:35 | MA ---
cc: KALPESH FIORE M.D. DATE 06/15/2017 PROCEDURE PERFORMED Left heart catheterization, left ventriculography, coronary angiography, direct PCI bare metal stent to the proximal LAD. INDICATIONS Non-STEMI, coronary artery disease, cardiomyopathy, end-stage renal failure on dialysis, diabetes mellitus, hypertension, severe coronary artery disease. PROCEDURAL STATEMENT The patient was brought to the cardiac catheterization. Prepped and draped in the usual sterile fashion. 10 cc's of 1% lidocaine was used to locally anesthetize the right common artery. A 4-Stateless sheath placed in the right common femoral artery. A 4-Stateless JR-4, JL-4 catheters were used to perform left and right coronary angiography, left ventriculography. FINDINGS LV pressures 125/7-8, EF 40-45%. There is global hypokinesis. The right coronary artery is a large dominant vessel. There is a proximal 60% stenosis followed by a long 95% stenosis in the mid segment. The distal segment has a short 95%. The left main coronary has no significant disease angiographically. The left circumflex vessel has no significant disease angiographically. The first obtuse marginal vessel is a small vessel probably 2 mm in diameter at most with an ostial 80% stenosis. There is a medium to large-sized ramus intermedius vessel which has a distal 95% stenosis. The LAD has a proximal focal 95% stenosis and is a transapical vessel. The 6-Stateless sheath was exchanged for the 4-Stateless sheath. Initial ACT was 135. 70 units per kilo of heparin was given ACT 245. A 6-Stateless sheath exchanged for a 4-Stateless sheath. A 6-Stateless XB 3.5 guide and 0.014 [place] guidewire were used to cross the proximal LAD stenosis. The lesion was directly stented with a 409 integrity stent with one inflation to 10 atmospheres for 20 seconds. The stenosis went from 95% to 0% with PASCALE-III flow. CONCLUSION 1. Non-STEMI, indeterminate culprit with 95% stenosis in the proximal LAD, mid right, distal right, and distal ramus intermediate vessel very consistent with a systemic inflammatory condition. Also, 90% stenosis in the ostial small obtuse marginal vessel as detailed above. 2. Cardiomyopathy of 40-45% with global hypokinesis. 3. Successful direct PCI bare metal stent in the proximal LAD for 95% to 0% PASCALE-III flow. RECOMMENDATIONS Stage PCI of the right coronary artery on 06/16/2017. Recommend Plavix 600 mg p.o. load and then 75 Hz daily for 12-15 months, aspirin 162 daily. We will leave the sheath in place, continue heparin drip overnight and will start Aggrastat per renal dose protocol. Treat lipids per NCP guidelines provided the LFTs are not elevated as the patient has a history of hepatitis C. Continue beta christofer. We will defer REAGAN inhibitor to renal given the patient's end-stage renal disease and presentation with hyperkalemia. MD SP Fox/NISH /2:09 PM /7:15 AM
[2017-06-18] MEDS: CLOPIDOGREL 75 MG TAB PO SCH (08:07)
[2017-06-18] MEDS: ASPIRIN 81 MG CHEW TAB PO SCH (08:08)
[2017-06-18] MEDS: SODIUM CHLORIDE 0.9% FLUSH 10 ML FLUSH SCH ×2 (08:08→20:39)
[2017-06-18] MEDS: CINACALCET HYDROCHLORIDE 30 MG TAB PO SCH (08:08)
[2017-06-18] MEDS: SEVELAMER CARBONATE 800 MG TAB PO SCH ×3 (08:14→15:50)
--- NOTE | 2017-06-18 08:23 | HHI.FPPN ---
Objective Vitals Vital Signs Date Time Temp Pulse Resp B/P Pulse Ox O2 Delivery O2 Flow Rate FiO2 06/18/17 07:00 70 06/18/17 07:00 99.3 73 13 132/79 93 06/18/17 06:00 74 06/18/17 05:00 70 06/18/17 04:00 62 06/18/17 03:00 63 06/18/17 02:00 98.0 64 13 118/71 95 06/18/17 02:00 62 06/18/17 01:00 58 06/18/17 00:00 63 06/17/17 23:33 64 126/88 100 06/17/17 23:00 62 06/17/17 23:00 98.4 63 14 119/80 97 06/17/17 22:00 62 06/17/17 21:00 62 06/17/17 20:00 98.6 82 14 115/70 96 06/17/17 20:00 70 06/17/17 19:00 56 06/17/17 18:00 64 06/17/17 17:53 97 21 06/17/17 16:19 65 06/17/17 15:00 98.6 81 18 136/56 97 06/17/17 15:00 68 06/17/17 14:00 61 06/17/17 13:29 59 06/17/17 12:12 63 06/17/17 11:43 72 06/17/17 11:00 98.9 72 16 131/70 96 06/17/17 10:02 73 06/17/17 09:13 93 21 06/17/17 09:00 79 I/O 06/17/17 06/17/17 06/17/17 06/18/17 06/18/17 06/18/17 07:00 15:00 23:00 07:00 15:00 23:00 Intake Total 240 ml 1240 ml 360 ml Output Total 0 ml 0 ml Balance 240 ml 1240 ml 360 ml Intake Oral 240 ml 240 ml 360 ml IV Total 1000 ml Output Urine Total 0 ml 0 ml Stool Total 0 ml # Voids 0 # Bowel Movements 0 0 Result Diagram: 06/17/17 0410 06/17/17 0410 Objective Remarks GENERAL: Non confrontational today, laying in bed SKIN: Warm and dry. HEAD: Atraumatic. Normocephalic. EYES: Pupils equal and round. No scleral icterus. No injection or drainage. ENT: No nasal bleeding or discharge. Mucous membranes pink and moist. NECK: Trachea midline. No JVD. CARDIOVASCULAR: Regular rate and rhythm. RESPIRATORY: No accessory muscle use. Clear to auscultation. Breath sounds equal bilaterally. GASTROINTESTINAL: Abdomen soft, non-tender, nondistended. Hepatic and splenic margins not palpable. MUSCULOSKELETAL: Extremities without clubbing, cyanosis, or edema. No obvious deformities. NEUROLOGICAL: Awake and alert. No obvious cranial nerve deficits. Motor grossly within normal limits.Normal speech. PSYCHIATRIC: Appropriate mood and affect; insight and judgment normal. SURGICAL: Right inguinal area inspected. Tender to palpation. Sheath in place, no active bleeding, erythema, discharge, edema. A/P Assessment and Plan Patient is a 57 year old female with past history of ESRD and diabetes who complains of chest pain.The pain started at 1:30am (06/15), was a sharp pain in the center of her chest which did not radiate. No pain in left arm or jaw. Noted excessive sweating, nausea, hot and cold intolerance, a brief dimming of her vision, and shortness of breath during the beginning of the chest pain. No vomiting, fever, chills, change in bowel habits, change in urinary habits, headache, dizziness, lightheadedness, weakness, numbness, tingling. No blurry vision/diplopia/other change in vision at time of admission. Patient states that at her last dialysis visit labs were drawn and were normal at that time. Potassium 6.4 in the ED, Troponins 1.65 and creatinine 8.73 which is similar to past reported creatinines (7.88 in 08/22/16). Incidentally notes healing left foot wound, previously debrided approximately 6 months ago at a different hospital. She said there was "no bone infection" at the time. She states that the wound is currently mildly painful, not hot. Ulcer large in size with packing in place which patient states she changes every 3 days for the past 6 months. Currently S/P 2 catheterizations, to be catheterized again today. Problem List: (1) NSTEMI (non-ST elevated myocardial infarction) Status: Acute Plan: Resting chest pain starting at 1:30 am 06/14. No significant improvement at admission. Per ED note, no ST elevation noted on ECG in ED. Troponin 1.65 at admission, . Troponins were to be drawn Q6 x3. Second set of troponins delayed due to the patient being in dialysis at the time of the blood draw. Contacted Dialysis which confirmed her troponins could not be obtained at that time. Cardiac catheterization performed 06/16/17 * Catheterization, 06/16, 06/17, third catheterization to occur this afternoon * F/U cardiology recommendations * Troponins 1.65 @ 1105 (06/14), 18.90 @ 0020 (06/15) , 24.00 @ 0450 * ASA 162 mg daily * Morphine for pain control * Metoprolol 25mg q8 * Nitroglycerin (2) Hyperkalemia Status: Acute Plan: ESRD and hyperkalemia. * Dialysis 06/14, 06/16 * Follow potassium and treat as needed * Nephrology consulted, follow recommendations (3) Ulcer of left foot Status: Chronic Plan: 6 month old ulcer of left foot which had been debrided at different hospital. Patient reported that she has been changing the dressing and packing every 3 days. * Maintain clean and dry * Wound care called and advised debridement of large eschar on bottom of foot for better treatment, consulted podiatry. * Podiatry order CTA foot with runoff, they will evaluate and determine possible OR debridement * Appreciate podiatry recommendations * Itchy, prescribed Benadryl (4) ESRD (end stage renal disease) on dialysis Status: Chronic Plan: ESRD with creatinine 8.73 and hyperkalemia on admission. * Dialysis 06/14, again 06/16 * Will restart MWF dialysis * Follow nephrology recommendations (5) Diabetes type 2, controlled Status: Chronic Plan: Diabetes type 2, non insulin dependent, reported as well controlled. * Discontinue home medications * low dose sliding scale insulin (6) Hypertension Status: Acute Plan: Hypertension at home, controlled with home medications. Currently ongoing NSTEMI * Continue home amlodipine 5mg if elevated * Follow cardiology recommendations (7) FEN Status: Acute Plan: Fluids - NPO until catheterizations Electrolytes - hyperkalemia and ESRD, Follow and correct as necessary Nutrition -NPO until catheterization Code -Full DVT proph - on plavix, SCDs Problem Qualifiers (1) Ulcer of left foot: Qualified Code: L97.522 - Ulcer of left foot, with fat layer exposed (2) Diabetes type 2, controlled: Qualified Code: E11.51 - Controlled type 2 diabetes mellitus with diabetic peripheral angiopathy without gangrene, without long-term current use of insulin Baudilio Bain MD R1 Jun 18, 2017 08:23
--- NOTE | 2017-06-18 08:24 | HHI.NPPN ---
Subjective Renal Failure: Chronic, End Stage Renal Disease Interval History Apparently had another cardiac cath yesterday, although it is not completely clear to me. Did not have CT angiogram which is scheduled for today. Also did not have dialysis yesterday. Review of Systems General Constitutional: Fatigue Cardiovascular Cardiac: Chest Pain Skin Skin: Ulcers Objective Data Data 06/17/17 06/18/17 19:00 07:00 Intake Total 1240 ml 360 ml Output Total 0 ml Balance 1240 ml 360 ml Intake Oral 240 ml 360 ml IV Total 1000 ml Output Urine Total 0 ml # Voids 0 # Bowel Movements 0 0 Vital Signs Date Time Temp Pulse Resp B/P Pulse Ox O2 Delivery O2 Flow Rate FiO2 06/18/17 07:00 70 06/18/17 07:00 99.3 73 13 132/79 93 06/18/17 06:00 74 06/18/17 05:00 70 06/18/17 04:00 62 06/18/17 03:00 63 06/18/17 02:00 98.0 64 13 118/71 95 06/18/17 02:00 62 06/18/17 01:00 58 06/18/17 00:00 63 06/17/17 23:33 64 126/88 100 06/17/17 23:00 62 06/17/17 23:00 98.4 63 14 119/80 97 06/17/17 22:00 62 06/17/17 21:00 62 06/17/17 20:00 98.6 82 14 115/70 96 06/17/17 20:00 70 06/17/17 19:00 56 06/17/17 18:00 64 06/17/17 17:53 97 21 06/17/17 16:19 65 06/17/17 15:00 98.6 81 18 136/56 97 06/17/17 15:00 68 06/17/17 14:00 61 06/17/17 13:29 59 06/17/17 12:12 63 06/17/17 11:43 72 06/17/17 11:00 98.9 72 16 131/70 96 06/17/17 10:02 73 06/17/17 09:13 93 21 06/17/17 09:00 79 -: 06/17/17 0410 06/17/17 0410 Drip Comment Aggrastat, heparin Physical Exam General Appearance: Well Developed, Well Nourished, No Acute Distress, Comfortable Eyes Eye Exam: Pupils Equal Throat Throat Exam: Oral Mucosa [place] & Moist Pulmonary Resp Exam: Clear Bilaterally, Breath Sounds Equal Cardiology CV Exam: Regular, Normal Sinus Rhythm Gastrointestinal/Abdomen GI Exam: Soft, Non-Tender, Bowel Sounds Present Musculoskeletal MS Exam: Normal Tone Integumentary Skin Exam: Warm, Dry Extremeties Extremities Exam: No Edema, Pedal Pulses Palpable Extremeties Remarks signs of peripheral ischemia. Foot ulcer. Neurologic Neuro Exam: Alert, Awake, Oriented, Speech Clear, Moving All Extremities Psychiatric Psych Exam: Appropriate Responses Assessment/Plan Discussed Condition With: Patient Assessment Summary: Hypertension, Diabetes Mellitus, End Stage Renal Disease Problem List: (1) ESRD (end stage renal disease) on dialysis Plan: Dialysis will be today after CT angiogram. Monitor fluid and electrolyte status. Avoid Gadolinium. (2) NSTEMI (non-ST elevated myocardial infarction) Plan: s/p cath 06/15 with bare metal stent to LAD repeat cath 06/16, and 06/17(?) cardiology following On Plavix, Aspirin and beta christofer. Currently not on a statin. (3) Ulcer of left foot Plan: podiatry has been consulted, note reviewed. CTA with runoff ordered may require wound debridement (4) Diabetes type 2, controlled Plan: continue insulin support, monitor glucose (5) Hypertension Plan: BP marginal continue home medications with hold parameters (6) Hyperkalemia Plan: repeat potassium is acceptable monitor (7) Metabolic bone disease Plan: She has secondary hyperparathyroidism. Cinacalcet ordered. Her PTH was very high in the outpatient setting. Phosphorus is high, increased Renvela to 2400 mg PO TID with meals. Low phosphorus diet was encouraged. Problem Qualifiers (1) Ulcer of left foot: Qualified Code: L97.522 - Ulcer of left foot, with fat layer exposed (2) Diabetes type 2, controlled: Qualified Code: E11.51 - Controlled type 2 diabetes mellitus with diabetic peripheral angiopathy without gangrene, without long-term current use of insulin Nazario Ahumada MD Jun 18, 2017 08:24
--- NOTE | 2017-06-18 10:54 | HHI.FPPN ---
Subjective Remarks Patient seen and examined this morning. Patient reluctant to be interviewed and examined at this time. She states she has no chest pain as of today. She does note minor pain in her groin at the catheter surgical site and continued pain in her left foot. She was unwilling to elaborate on these symptoms. No complaints of shortness of breath, pain radiating to the back, difficulty breathing, N/V/F/C, abdominal pain, change in urinary or bowel habits. Patient abruptly stopped interview and examination because she didn't want to "get the germs" while she was attempting to eat breakfast. With persistence, briefly permitted auscultation of her chest, back and abdomen and a brief visual inspection of her foot and surgical site. Objective Vitals Vital Signs Date Time Temp Pulse Resp B/P Pulse Ox O2 Delivery O2 Flow Rate FiO2 06/18/17 10:35 73 06/18/17 10:25 95 21 06/18/17 09:00 70 06/18/17 08:00 75 06/18/17 07:00 70 06/18/17 07:00 99.3 73 13 132/79 93 06/18/17 06:00 74 06/18/17 05:00 70 06/18/17 04:00 62 06/18/17 03:00 63 06/18/17 02:00 98.0 64 13 118/71 95 06/18/17 02:00 62 06/18/17 01:00 58 06/18/17 00:00 63 06/17/17 23:33 64 126/88 100 06/17/17 23:00 62 06/17/17 23:00 98.4 63 14 119/80 97 06/17/17 22:00 62 06/17/17 21:00 62 06/17/17 20:00 98.6 82 14 115/70 96 06/17/17 20:00 70 06/17/17 19:00 56 06/17/17 18:00 64 06/17/17 17:53 97 21 06/17/17 16:19 65 06/17/17 15:00 98.6 81 18 136/56 97 06/17/17 15:00 68 06/17/17 14:00 61 06/17/17 13:29 59 06/17/17 12:12 63 06/17/17 11:43 72 06/17/17 11:00 98.9 72 16 131/70 96 I/O 06/17/17 06/17/17 06/17/17 06/18/17 06/18/17 06/18/17 07:00 15:00 23:00 07:00 15:00 23:00 Intake Total 240 ml 1240 ml 360 ml Output Total 0 ml 0 ml Balance 240 ml 1240 ml 360 ml Intake Oral 240 ml 240 ml 360 ml IV Total 1000 ml Output Urine Total 0 ml 0 ml Stool Total 0 ml # Voids 0 # Bowel Movements 0 0 Result Diagram: 06/17/1740906/17/17409 Objective Remarks GENERAL: Resistant to examination, permitted few aspects, laying in bed SKIN: Large ulcer on lateral plantar surface of left foot. Extends approximately 5 cm posterior to anterior. Extends approximately 2 cm lateral to distal on plantar surface at some points, irregular shape. Appears dry with large intact eschar extending over majority of wound. No active bleeding. HEAD: Atraumatic. Normocephalic. NECK: Trachea midline. No JVD. CARDIOVASCULAR: Regular rate and rhythm. RESPIRATORY: No accessory muscle use. Clear to auscultation. Breath sounds equal bilaterally. MUSCULOSKELETAL: Extremities without clubbing, cyanosis, or edema. No obvious deformities. NEUROLOGICAL: Awake and alert. No obvious cranial nerve deficits. Motor grossly within normal limits.Normal speech. PSYCHIATRIC: Confrontational, obstinate. SURGICAL: Right inguinal area inspected. Surgical site with no active bleeding, erythema, discharge, edema. Did not permit palpation of area Procedures Cardiac catheterization x3 06/15, 06/16, 06/17 Medications and IVs Current Medications Medications (Trade) Dose Ordered Sig/Diamond Route Start Time Stop Time Status Last Admin (Morphine Inj) 2 mg Q30M PRN IV 06/14/17 13:00 06/18/17 04:41 Ondansetron HCl 4 mg 4 mg Q6H PRN IV 06/14/17 13:00 (NS 1000 ml Inj) 1,000 ml @ 0 mls/hr Q0M PRN IV 06/14/17 13:28 06/14/17 15:33 Heparin Sodium (Porcine) 8000 units 8,000 units UNSCH PRN IVF 06/14/17 13:30 Sodium Chloride 1,000 ml @ 200 mls/hr Q5H PRN IV 06/14/17 13:28 (NS 1000 ml Inj) 1,000 ml @ 0 mls/hr Q0M PRN IV 06/14/17 13:28 (Mannitol Inj) 12.5 gm UNSCH PRN IV 06/14/17 13:30 (Albumin 25% Inj) 25 gm UNSCH PRN IV 06/14/17 13:30 (NS Flush) 5 ml UNSCH PRN IV FLUSH 06/14/17 13:30 (Heparin Inj) UNSCH PRN .XX 06/14/17 13:30 (Gentamicin (Dialysis) Inj) 20 mg UNSCH PRN IV 06/14/17 13:30 (Zofran Inj) 4 mg UNSCH PRN IV 06/14/17 13:30 (Tylenol) 650 mg UNSCH PRN PO 06/14/17 13:30 (Benadryl) 25 mg UNSCH PRN PO 06/14/17 13:30 06/17/17 23:24 (Nitrostat Sl) 0.4 mg UNSCH PRN SL 06/14/17 13:30 (Catapres) 0.1 mg UNSCH PRN PO 06/14/17 13:30 (Gelfoam 12 Mm/7 Mm Top) 1 foam UNSCH PRN TOP 06/14/17 13:30 06/14/17 15:33 (D50w (Vial) Inj) 50 ml UNSCH PRN IV 06/14/17 14:00 (Glucagon Inj) 1 mg UNSCH PRN OTHER 06/14/17 14:00 (Nitroglycerin 2% Oint) 2 inch Q6HR TOPICAL 06/14/17 18:00 06/18/17 06:17 (Lopressor) 25 mg Q8HR PO 06/14/17 22:00 06/18/17 06:18 (Aspirin Chew) 162 mg DAILY PO 06/16/17 09:00 06/18/17 08:08 (Plavix) 75 mg DAILY PO 06/16/17 09:00 06/18/17 08:07 (Benadryl) 25 mg Q4H PRN PO 06/17/17 09:15 (Sensipar) 30 mg DAILY PO 06/17/17 10:00 06/18/17 08:08 (NS Flush) 2 ml UNSCH PRN .XX 06/17/17 14:30 (NS Flush) 2 ml BID .XX 06/17/17 21:00 06/18/17 08:08 (Renvela) 2,400 mg TIDAC PO 06/18/17 08:00 06/18/17 08:14 A/P Assessment and Plan Patient is a 57 year old female with past history of ESRD and diabetes who complained of chest pain. Patient states that at her last dialysis visit two days prior to admission labs were drawn and were normal at that time. Potassium 6.4 in the ED, Troponins 1.65 and creatinine 8.73 which is similar to past reported creatinines (7.88 in 08/22/16). Incidentally notes healing left foot wound, previously debrided approximately 6 months ago at a different hospital. She said there was "no bone infection" at the time. She states that the wound is currently mildly painful, not hot. Podiatry assessing for possible OR debridement. Currently S/P 3 catheterizations. Problem List: (1) NSTEMI (non-ST elevated myocardial infarction) Status: Acute Plan: Resting chest pain starting at 1:30 am 06/14. No significant improvement at admission. Per ED note, no ST elevation noted on ECG in ED. Troponin 1.65 at admission, . Troponins were to be drawn Q6 x3. Second set of troponins delayed due to the patient being in dialysis at the time of the blood draw. Contacted Dialysis which confirmed her troponins could not be obtained at that time. Cardiac catheterization performed 06/16/17 * Catheterization x3, 06/15, 06/16, 06/17, * F/U cardiology recommendations * Troponins 1.65 @ 1105 (06/14), 18.90 @ 0020 (06/15) , 24.00 @ 0450 * ASA 162 mg daily * Morphine for pain control * Metoprolol 25mg q8 * Nitroglycerin (2) Hyperkalemia Status: Acute Plan: ESRD and hyperkalemia. * Dialysis 06/14, 06/16, today * Follow potassium and treat as needed * Nephrology consulted, follow recommendations (3) Ulcer of left foot Status: Chronic Plan: 6 month old ulcer of left foot which had been debrided at different hospital. Patient reported that she has been changing the dressing and packing every 3 days. * Maintain clean and dry * Wound care called and advised debridement of large eschar on bottom of foot for better treatment, consulted podiatry. * Podiatry ordered CTA foot with runoff, they will evaluate and determine possible OR debridement * Appreciate podiatry recommendations * Benadryl for itchyness (4) ESRD (end stage renal disease) on dialysis Status: Chronic Plan: ESRD with creatinine 8.73 and hyperkalemia on admission. * Dialysis 06/14, 06/16, again today * Will restart MWF dialysis * Follow nephrology recommendations (5) Diabetes type 2, controlled Status: Chronic Plan: Diabetes type 2, non insulin dependent, reported as well controlled. * Discontinue home medications * low dose sliding scale insulin (6) Hypertension Status: Acute Plan: Hypertension at home, controlled with home medications. Currently ongoing NSTEMI * Continue home amlodipine 5mg if elevated * Follow cardiology recommendations (7) FEN Status: Acute Plan: Fluids - NPO until catheterizations Electrolytes - hyperkalemia and ESRD, Follow and correct as necessary Nutrition -NPO until catheterization Code -Full DVT proph - on plavix, SCDs Problem Qualifiers (1) Ulcer of left foot: Qualified Code: L97.522 - Ulcer of left foot, with fat layer exposed (2) Diabetes type 2, controlled: Qualified Code: E11.51 - Controlled type 2 diabetes mellitus with diabetic peripheral angiopathy without gangrene, without long-term current use of insulin Baudilio Bain MD R1 Jun 18, 2017 10:54 (1) Ulcer of left foot: Qualified Code: L97.522 - Ulcer of left foot, with fat layer exposed (2) Diabetes type 2, controlled: Qualified Code: E11.51 - Controlled type 2 diabetes mellitus with diabetic peripheral angiopathy without gangrene, without long-term current use of insulin Baudilio Bain MD R1 Jun 18, 2017 10:54
[2017-06-18] MEDS ORDERED: IOHEXOL 350 MG/ML 10 ML VIAL (for RAD DIAG) IV ONE (11:08)
--- NOTE | 2017-06-18 12:44 | EKG ---
Date Performed: 06/18/2017 Time Performed: 04:32:54 PTAGE: 57 years EKG: Sinus rhythm Anteroseptal infarct - age undetermined Possible inferior infarct - age undetermined Lateral ST-T ch anges may be due to myocardial ischemia Abnormal ECG PREVIOUS TRACING : 06/17/2017 05.01 DOCTOR: Jack Bingham Interpretating Date/Time 06/18/2017 12:42:14
--- NOTE | 2017-06-18 13:45 | PD.CARD.PN ---
Subjective Subjective Remarks alert in nad Objective Vital Signs / I&O Vital Signs Date Time Temp Pulse Resp B/P Pulse Ox O2 Delivery O2 Flow Rate FiO2 06/18/17 11:00 98.9 73 13 113/69 100 06/18/17 10:35 73 06/18/17 10:25 95 21 06/18/17 09:00 70 06/18/17 08:00 75 06/18/17 07:00 70 06/18/17 07:00 99.3 73 13 132/79 93 06/18/17 06:00 74 06/18/17 05:00 70 06/18/17 04:00 62 06/18/17 03:00 63 06/18/17 02:00 98.0 64 13 118/71 95 06/18/17 02:00 62 06/18/17 01:00 58 06/18/17 00:00 63 06/17/17 23:33 64 126/88 100 06/17/17 23:00 62 06/17/17 23:00 98.4 63 14 119/80 97 06/17/17 22:00 62 06/17/17 21:00 62 06/17/17 20:00 98.6 82 14 115/70 96 06/17/17 20:00 70 06/17/17 19:00 56 06/17/17 18:00 64 06/17/17 17:53 97 21 06/17/17 16:19 65 06/17/17 15:00 98.6 81 18 136/56 97 06/17/17 15:00 68 06/17/17 14:00 61 I/O 06/17/17 06/17/17 06/17/17 06/18/17 06/18/17 06/18/17 07:00 15:00 23:00 07:00 15:00 23:00 Intake Total 240 ml 1240 ml 360 ml Output Total 0 ml 0 ml Balance 240 ml 1240 ml 360 ml Intake Oral 240 ml 240 ml 360 ml IV Total 1000 ml Output Urine Total 0 ml 0 ml Stool Total 0 ml # Voids 0 # Bowel Movements 0 0 Laboratory GENERAL: SKIN: Warm and dry. HEAD: Normocephalic. EYES: No scleral icterus. No injection or drainage. NECK: Supple, trachea midline. No JVD or lymphadenopathy. CARDIOVASCULAR: Regular rate and rhythm without murmurs, gallops, or rubs. RESPIRATORY: Breath sounds equal bilaterally. No accessory muscle use. GASTROINTESTINAL: Abdomen soft, non-tender, nondistended. MUSCULOSKELETAL: No cyanosis, or edema. BACK: Nontender without obvious deformity. No CVA tenderness. Assessment and Plan Problem List: (1) NSTEMI (non-ST elevated myocardial infarction) (2) Diabetes type 2, controlled (3) ESRD (end stage renal disease) on dialysis (4) Hep C w/o coma, chronic (5) CAD (coronary artery disease) Assessment and Plan 1.) CAD - s/p multivessel pci, has 95% ostial lesion in small om with 30 degree angulation off lcx and mild chest pain at night; rec continue aspirin, plavix, lopressor, ntg; statin held due to elevated lfts and hep c, kurtis held due to esrd and hyperkalemia; cbc ordered this am, not done. order placed for stat cbc. ok to dc if cbc wnl from cv standpoint. Problem Qualifiers (1) Diabetes type 2, controlled: Qualified Code: E11.51 - Controlled type 2 diabetes mellitus with diabetic peripheral angiopathy without gangrene, without long-term current use of insulin Arsenio Dowd MD Jun 18, 2017 13:45
--- NOTE | 2017-06-18 14:57 | RADRPT ---
EXAM DATE/TIME: 06/18/2017 11:04 [place] COMPARISON: CTA RUNOFF W 3D RECON, August 22, 2016, 12:30. INDICATIONS : Peripheral vascular disease. Left foot pain. IV CONTRAST: 99 cc Omnipaque 350 (iohexol) IV RADIATION DOSE: 7.66 CTDIvol (mGy) MEDICAL HISTORY : Cardiovascular disease. Hypertension. Renal failure, chronic.Hepatitis C SURGICAL HISTORY : Angioplasty ENCOUNTER: Initial ACUITY: 1 day PAIN SCALE: 0/10 LOCATION: Left TECHNIQUE: Volumetric scanning was performed using a multi-row detector CT scanner. The data was post processed with a variety of visualization algorithms including full volume maximum intensity projection, multi -planar sliding thin slab reformation, curved planar reformation, and surface rendering techniques. Using automated exposure control and adjustment of the mA and/or kV according to patient size, radiat ion dose was kept as low as reasonably achievable to obtain optimal diagnostic quality images. DICO M format image data is available electronically for review and comparison. FINDINGS: Aorta/inflow: Diffuse calcified atherosclerotic plaque throughout the aorta and inflow vessels. The aorta is normal in caliber. No stenosis or dissection. No aneurysm. Both common iliac arteries are heavily calcified but patent. A 40-50% stenosis is seen involving the junction of the right common iliac and external iliac artery. This is stable. The remaining external iliac artery on the right shows a chronic dissec tion flap with equal opacification of the true and false lumens. The right internal iliac artery is s tenotic at its origin. The left common iliac and external iliac are diffusely calcified but patent. T he left internal iliac artery is occluded at its origin. The celiac, SMA, and renal arteries are walters nt. Right lower extremity: The common femoral arteries calcified but patent. Diffuse disease is seen throughout the outflow vess els. There are heavily calcified. Multiple short segment occlusions and high grade stenoses are seen throughout the SFA and popliteal artery. The trifurcation vessels are heavily calcified. This in comb ination with their small size generates beam hardening artifact limiting the patency evaluation. I se e intermittent areas with contrast in the lumen by cannot confidently state that there is a straight line flow to the foot. There is variant anatomy with the tibial peroneal trunk quite long before its bifurcation. Left lower extremity The common femoral arteries calcified but patent. Diffuse disease is seen throug hout the outflow vessels. There are heavily calcified. Multiple short segment occlusions and high gra de stenoses are seen throughout the SFA and popliteal artery. The trifurcation vessels are heavily ca lcified. This in combination with their small size generates beam hardening artifact limiting the pat ency evaluation. I see intermittent areas with contrast in the lumen by cannot confidently state that there is a straight line flow to the foot. There is variant anatomy with anterior tibial artery hodan ing from the [id number] popliteal artery..: Other structures: The heart is mildly enlarged. The left kidney is atrophic and contains multiple low density lesions w hich are too small to accurately characterize with CT. A 5.5 x 5.2 cm mass is seen involving the righ t kidney. This is larger from the prior study where measured 4.6 x 4.5 cm. No retroperitoneal adenopa thy. CONCLUSION: 1. Stable exam with 50% stenosis of the right distal common iliac/proximal external iliac artery. Lef t inflow is patent. 2. Both lower extremities shows severe multilevel SFA and popliteal disease. The trifurcation vessels are poorly evaluated due to their heavily calcified nature which generates beam hardening artifact l imiting their patency evaluation. I am not confident there is straight line flow to either foot. 3. Small dissection flap involving the right external iliac artery. 4. Enlarging right renal mass that now measures 5.5 x 5.2 cm. Trever Carballo Jr., MD on June 18, 2017 at 14:40 Board Certified Radiologist. This report was verified electronically.
[2017-06-18 15:01] LABS: HEMATOCRIT 44.7 % (35.0-46.0); MEAN CELL VOLUME 88.5 FL (80.0-100.0); MEAN CORPUSCULAR HEMOGLOBIN 28.1 PG (27.0-34.0); MEAN CORPUSCULAR HGB CONC 31.7 % (32.0-36.0); PLATELET COUNT 179 TH/MM3 (150-450); RED BLOOD COUNT 5.05 MIL/MM3 (4.00-5.30); REVIEW FLAG FINAL; WHITE BLOOD COUNT 5.9 TH/MM3 (4.0-11.0)
[2017-06-18] MEDS: diphenhydrAMINE HCL 25 MG CAP PO PRN ×2 (15:47→20:40)
[2017-06-18] MEDS ORDERED: PLAV75TA29 PO (17:24)
[2017-06-18] MEDS ORDERED: NITR0.4S SL (17:24)
[2017-06-18] MEDS ORDERED: METO25TA3 PO (17:24)
[2017-06-18] MEDS ORDERED: ASPI81CH25 PO (17:24)
--- NOTE | 2017-06-18 17:28 | HHI.DCPOC ---
Discharge Care Plan Diagnosis: (1) Ulcer of left foot (2) Non-ST elevation [place] (NSTEMI) (3) Diabetes type 2, controlled (4) Hypertension (5) CAD (coronary artery disease) (6) ESRD (end stage renal disease) on dialysis Goals to Promote Your Health * To prevent worsening of your condition and complications * To maintain your health at the optimal level Directions to Meet Your Goals Take your medications as prescribed Follow your dietary instruction Follow activity as directed Keep your appointments as scheduled Take your immunizations and boosters as scheduled If your symptoms worsen call your PCP, if no PCP go to Urgent Care Center or Emergency Room Smoking is Dangerous to Your Health. Avoid second hand smoke Call the 24-hour hour crisis hotline for domestic abuse at Kandis Montez MD R2 Jun 18, 2017 17:28
--- NOTE | 2017-06-18 18:43 | MR ---
cc: KALPESH FIORE M.D. DATE 06/16/17 PCI of the right coronary artery. INDICATIONS Non STEMI, indeterminate lesion. The patient had 95% proximal LAD stenosis, 95% distal right coronary stenosis and 95% mid RCA stenosis, 75% proximal coronary artery stenosis as well as a 95% stenosis in the mid to distal medium to large obtuse marginal vessel. The LAD was transverse given that this is the highest risk lesion given the amount of jeopardized myocardium. The patient still had chest pain post procedure. Therefore, it was medically indicated to proceed with PCI of the right coronary artery. The sheath remained in place overnight on heparin drip. Sheath was exchanged with sterile technique. Initial ACT was 133. The patient was given 70 units per kg of heparin with an ACT of 242. She came to the wheelabrator operator on a hydrostatic drip and also received a Plavix bolus of 600 yesterday and 75 mg this morning as well as aspirin 162 mg this morning. A 6-Maltese JR-4 guide was placed in the ostial right coronary artery and map and this was obtained. A 0.014 [place] guidewire was used to cross the proximal mid and distal RCA stenosis and placed into the distal right PDA. The wire across the distal right coronary artery was actually partially obstructed but once the wire was across there was PASCALE I to II flow beyond the wire. The distal stenosis was predilated with a 2.5 x 12 Sprinter balloon two inflations of 10 atmospheres for 20 seconds. I then predilated the mid RCA with the 2.5 x 12 Sprinter balloons two inflations of 12 atmospheres for 20 seconds. I then attempted to deliver the 4-0 x 9 integrity stent to the distal lesion but I could not cross the mid segment. Therefore, my intent was to stent the distal segment first but again I could not accomplish this probably due to fibrocalcific AC and vessel tortuosity. Therefore, I stented the mid segment with a 4-0 x 18 integrity stent one inflation 15 atmospheres for 20 seconds. There was definitely some under-deployment in the mid segment of the stent, however, there was heavy fibrocalcification. The stenosis went from 95% to 0% with PASCALE III flow. I then was able to deliver a 409 integrity stent to the distal lesion deployed with one inflation of 14 atmospheres for 20 seconds. The distal part of the stent was suboptimally deployed, but again there was significant fibrocalcification in this lesion. I then used a 409 integrity stent balloon to post dilate the mid RCA stent one inflation 15 atmospheres for 20 seconds. I then stented directly the proximal RCA with a 409 Integrity stent one inflation at 15 atmospheres for 20 seconds. went from 70% to 0% PASCALE-III flow. CONCLUSION 1. Successful PCI of the distal right coronary from 95% to 0% PASCALE-III flow. 2. Successful PCI bare metal stent to mid RCA from 95% to 0% PASCALE-III flow. 3. Successful PCI bare metal stent of the proximal RCA from 75% to 0% with PASCALE-III flow. 4. Continue aspirin 162 mg daily, Plavix 75 mg daily, Agrestat drip and we will resume the heparin drip. Keep the sheath in overnight. 5. Stage PCI of the distal ramus intermedius vessel is medically necessary as again I was not sure which of the lesions was the culprit lesion. Certainly all of them could have been for her non STEMI. Her troponin did go to 20. MD SP Fox/ /1:39 PM /6:26 PM
[2017-06-19] VITALS (14 sets, daily range): BP systolic 97–104; BP diastolic 54–59; PULSE 57–65; RESP 20; TEMP 98–99; O2SAT 95
[2017-06-19] MEDS: MORPHINE SULFATE 4 MG/ML INJ IV PRN ×2 (01:13→08:57)
[2017-06-19] MEDS: diphenhydrAMINE HCL 25 MG CAP PO PRN ×2 (01:15→10:23)
[2017-06-19] MEDS: NITROGLYCERIN 2% OINT 1 GM PACKET TOPICAL SCH ×2 (05:39→12:00)
[2017-06-19] MEDS: METOPROLOL TARTRATE 25 MG TAB PO SCH ×2 (05:39→14:00)
[2017-06-19] MEDS: INSULIN ASPART SUPPLEMENTAL SCALE SQ SCH ×3 (06:36→16:00)
[2017-06-19] MEDS: SEVELAMER CARBONATE 800 MG TAB PO SCH ×2 (08:00→12:00)
[2017-06-19] MEDS: CLOPIDOGREL 75 MG TAB PO SCH (08:57)
[2017-06-19] MEDS: ASPIRIN 81 MG CHEW TAB PO SCH (08:57)
[2017-06-19] MEDS: SODIUM CHLORIDE 0.9% FLUSH 10 ML FLUSH SCH (08:57)
[2017-06-19] MEDS: CINACALCET HYDROCHLORIDE 30 MG TAB PO SCH (08:57)
--- NOTE | 2017-06-19 09:55 | HHI.NPPN ---
Subjective Renal Failure: Chronic, End Stage Renal Disease Interval History Seen during dialysis. No acute complaints from the patient. Right sided renal mass, enlarging, discovered on CT angiogram. ([place]) Review of Systems General Constitutional: Fatigue ([place]) Skin Skin: Ulcers ([place]) Objective Data Data 06/18/17 06/19/17 19:00 07:00 Intake Total 720 ml 480 ml Output Total 3000 ml 0 ml Balance -2280 ml 480 ml Intake Oral 720 ml 480 ml IV Total 0 ml Output Urine Total 0 ml Emesis 0 ml Hemodialysis 3000 ml # Voids 1 # Bowel Movements 0 0 Vital Signs Date Time Temp Pulse Resp B/P Pulse Ox O2 Delivery O2 Flow Rate FiO2 06/19/17 09:02 20 06/19/17 06:00 60 06/19/17 05:01 65 06/19/17 04:33 99.0 65 20 104/54 95 06/19/17 04:00 62 06/19/17 03:00 62 06/19/17 02:00 60 06/19/17 01:00 60 06/19/17 00:00 60 06/18/17 23:37 99.1 61 20 109/60 99 06/18/17 23:00 60 06/18/17 22:00 62 06/18/17 21:00 62 06/18/17 20:00 64 06/18/17 19:14 70 06/18/17 19:14 98.6 63 20 111/58 95 06/18/17 18:54 68 06/18/17 17:34 70 06/18/17 16:16 68 06/18/17 15:29 69 06/18/17 15:28 98.4 69 16 139/73 92 06/18/17 11:00 98.9 73 13 113/69 100 06/18/17 10:35 73 06/18/17 10:25 95 21 ([place]) -: 06/18/17 1410 06/17/17 0410 Imaging Last Impressions Aorta w/Runoff CTA 06/18/17 0000 Signed Impressions: Service Date/Time: May 11:04 - CONCLUSION: 1. Stable exam with 50%% stenosis of the right distal common iliac/proximal external iliac artery. Left inflow is patent. 2. Both lower extremities shows severe multilevel SFA and popliteal disease. The trifurcation vessels are poorly evaluated due to their heavily calcified nature which generates beam hardening artifact limiting their patency evaluation. I am not confident there is straight line flow to either foot. 3. Small dissection flap involving the right external iliac artery. 4. Enlarging right renal mass that now measures 5.5 x 5.2 cm. Trever Carballo Jr., MD Chest X-Ray 06/14/17 1050 Signed Impressions: Service Date/Time: Wednesday, June 14, 2017 10:46 - CONCLUSION: Borderline cardiomegaly. María Elena Hdez MD Foot X-Ray 06/14/17 0000 Signed Impressions: Service Date/Time: Wednesday, June 14, 2017 13:52 - CONCLUSION: Chronic changes and no evidence for acute fracture. María Elena Hdez MD ([place]) Physical Exam General Appearance: Well Developed, Well Nourished, No Acute Distress, Comfortable ( [place]) Eyes Eye Exam: Pupils Equal ([place]) Throat Throat Exam: Oral Mucosa Graham & Moist ([place]) Pulmonary Resp Exam: Clear Bilaterally, Breath Sounds Equal ([place]) Cardiology CV Exam: Regular, Normal Sinus Rhythm ([place]) Gastrointestinal/Abdomen GI Exam: Soft, Non-Tender, Bowel Sounds Present ([place]) Musculoskeletal MS Exam: Normal Tone ([place]) Integumentary Skin Exam: Warm, Dry Skin Remarks ulcer plantar surface ([place]) Extremeties Extremities Exam: No Edema, Pedal Pulses Palpable Extremeties Remarks left arm AVF + thrill/bruit ([place]) Neurologic Neuro Exam: Alert, Awake, Oriented, Speech Clear, Moving All Extremities ( [place]) Psychiatric Psych Exam: Appropriate Responses ([place]) Assessment/Plan Discussed Condition With: Patient Assessment Summary: Hypertension, Diabetes Mellitus, End Stage Renal Disease Problem List: (1) ESRD (end stage renal disease) on dialysis Plan: Seen during dialysis on a 2K, 350 BFR, goal 1.5L fluid removal Monitor fluid and electrolyte status. Avoid Gadolinium. Avoid IVF AVF functions well new renal mass on right side discovered on CT angiogram. D/W radiologist who reports this as a solid mass, growing in size from last year. Suspicious for renal cell carcinoma. Will consult urology for their opinion D/W patient (2) NSTEMI (non-ST elevated myocardial infarction) Plan: s/p multiple caths this week beginning 06/15 with bare metal stent to LAD and RCA cardiology following On Plavix, Aspirin and beta christofer. , not Currently on a statin. (3) Ulcer of left foot Plan: podiatry has evaluated CTA with runoff reviewed no intervention planned at this time (4) Diabetes type 2, controlled Plan: continue insulin support, monitor glucose (5) Hypertension Plan: BP runs low at times continue home medications with hold parameters (6) Metabolic bone disease Plan: She has secondary hyperparathyroidism. , on Sensipar Her PTH was very high in the outpatient setting. Phosphorus is elevated, continue high dose Renvela with meals. Low phosphorus diet was encouraged. (7) Hyperkalemia Plan: repeat potassium is acceptable monitor ([place]) Plan patient was seen and examined. Agree with above assessment and plan. Right renal mass, needs evaluation and followup. (Nazario Ahumada MD) Problem Qualifiers (1) Ulcer of left foot: Qualified Code: L97.522 - Ulcer of left foot, with fat layer exposed (2) Diabetes type 2, controlled: Qualified Code: E11.51 - Controlled type 2 diabetes mellitus with diabetic peripheral angiopathy without gangrene, without long-term current use of insulin [place] Jun 19, 2017 09:55 Nazario Ahumada MD Jun 20, 2017 06:15
[2017-06-19] MEDS: GELATIN 12 MM/7 MM FOAM TOP PRN (10:23)
--- NOTE | 2017-06-19 10:36 | PD.CARD.PN ---
Subjective Subjective Remarks has mild chest pain at night, much improved. also c/o pruritis below knees Objective Vital Signs / I&O GENERAL: SKIN: Warm and dry. HEAD: Normocephalic. EYES: No scleral icterus. No injection or drainage. NECK: Supple, trachea midline. No JVD or lymphadenopathy. CARDIOVASCULAR: Regular rate and rhythm without murmurs, gallops, or rubs. RESPIRATORY: Breath sounds equal bilaterally. No accessory muscle use. GASTROINTESTINAL: Abdomen soft, non-tender, nondistended. MUSCULOSKELETAL: No cyanosis, or edema. BACK: Nontender without obvious deformity. No CVA tenderness. Vital Signs Date Time Temp Pulse Resp B/P Pulse Ox O2 Delivery O2 Flow Rate FiO2 06/19/17 09:02 20 06/19/17 06:00 60 06/19/17 05:01 65 06/19/17 04:33 99.0 65 20 104/54 95 06/19/17 04:00 62 06/19/17 03:00 62 06/19/17 02:00 60 06/19/17 01:00 60 06/19/17 00:00 60 06/18/17 23:37 99.1 61 20 109/60 99 06/18/17 23:00 60 06/18/17 22:00 62 06/18/17 21:00 62 06/18/17 20:00 64 06/18/17 19:14 70 06/18/17 19:14 98.6 63 20 111/58 95 06/18/17 18:54 68 06/18/17 17:34 70 06/18/17 16:16 68 06/18/17 15:29 69 06/18/17 15:28 98.4 69 16 139/73 92 06/18/17 11:00 98.9 73 13 113/69 100 06/18/17 10:35 73 I/O 06/18/17 06/18/17 06/18/17 06/19/17 06/19/17 06/19/17 07:00 15:00 23:00 07:00 15:00 23:00 Intake Total 360 ml 720 ml 480 ml Output Total 3000 ml 0 ml 0 ml Balance 360 ml -3000 ml 720 ml 480 ml Intake Oral 360 ml 720 ml 480 ml IV Total 0 ml Output Urine Total 0 ml Emesis 0 ml Hemodialysis 3000 ml # Voids 0 1 # Bowel Movements 0 0 0 Laboratory Laboratory Tests Test 06/18/17 14:10 White Blood Count 5.9 TH/MM3 Red Blood Count 5.05 MIL/MM3 Hemoglobin 14.2 GM/DL Hematocrit 44.7 % Mean Corpuscular Volume 88.5 FL Mean Corpuscular Hemoglobin 28.1 PG Mean Corpuscular Hemoglobin 31.7 % Concent Red Cell Distribution Width 15.0 % Platelet Count 179 TH/MM3 Mean Platelet Volume 9.9 FL Assessment and Plan Problem List: (1) NSTEMI (non-ST elevated myocardial infarction) (2) Diabetes type 2, controlled (3) ESRD (end stage renal disease) on dialysis (4) Hep C w/o coma, chronic (5) CAD (coronary artery disease) Assessment and Plan 1.) CAD - s/p multivessel pci, has 95% ostial lesion in small om with 30 degree angulation off lcx and mild chest pain at night; rec continue aspirin, plavix, lopressor, ntg; statin held due to elevated lfts and hep c, kurtis held due to esrd and hyperkalemia; she c/o le pruritis, i do not see a rash. This may be due to plavix. Could consider changing to effient if there is no history ov cva. ow ok to dc from cv standpoint, f/u with me in office [place] next week; d/w patient and nurse Problem Qualifiers (1) Diabetes type 2, controlled: Qualified Code: E11.51 - Controlled type 2 diabetes mellitus with diabetic peripheral angiopathy without gangrene, without long-term current use of insulin Arsenio Dowd MD Jun 19, 2017 10:36
--- NOTE | 2017-06-19 12:21 | HHI.FPPN ---
Subjective Remarks Attempted to see and examine patient this morning. Patient would only respond to a limited number of questions, then refused to answer any further. She adamantly deferred any kind of physical examination today after several attempts to persuade her. Patient states she has no chest pain, shortness of breath, difficulty breathing, abdominal pain. She does complain of itchyness in her foot. The medicine team discussed the patients follow up plan including her vascular referral, podiatry, cardiology and primary care follow up, as well as the need to do so, all of which she acknowledged and agreed with. Also discussed the importance of the medications she will go home on, in particular plavix which she states she had spoken with the 3d technologist about previously. She acknowledged the importance to take the medications to be taken as prescribed, and the risks associated with them. She had no follow up questions. (Baudilio Bain MD R1) Objective Vitals Vital Signs Date Time Temp Pulse Resp B/P Pulse Ox O2 Delivery O2 Flow Rate FiO2 06/19/17 09:02 20 06/19/17 06:00 60 06/19/17 05:01 65 06/19/17 04:33 99.0 65 20 104/54 95 06/19/17 04:00 62 06/19/17 03:00 62 06/19/17 02:00 60 06/19/17 01:00 60 06/19/17 00:00 60 06/18/17 23:37 99.1 61 20 109/60 99 06/18/17 23:00 60 06/18/17 22:00 62 06/18/17 21:00 62 06/18/17 20:00 64 06/18/17 19:14 70 06/18/17 19:14 98.6 63 20 111/58 95 06/18/17 18:54 68 06/18/17 17:34 70 06/18/17 16:16 68 06/18/17 15:29 69 06/18/17 15:28 98.4 69 16 139/73 92 I/O 06/18/17 06/18/17 06/18/17 06/19/17 06/19/17 06/19/17 07:00 15:00 23:00 07:00 15:00 23:00 Intake Total 360 ml 720 ml 480 ml Output Total 3000 ml 0 ml 0 ml Balance 360 ml -3000 ml 720 ml 480 ml Intake Oral 360 ml 720 ml 480 ml IV Total 0 ml Output Urine Total 0 ml Emesis 0 ml Hemodialysis 3000 ml # Voids 0 1 # Bowel Movements 0 0 0 (Baudilio Bain MD R1) Result Diagram: 06/18/17 1410 06/17/17 0410 Objective Remarks GENERAL: Denied any physical exam, attempted several times, only information gathered was visual HEAD: Atraumatic. Normocephalic. NECK: Trachea midline. No JVD. NEUROLOGICAL: Awake and alert. Normal speech. PSYCHIATRIC: Confrontational, obstinate. Procedures Cardiac catheterization x3 06/15, 06/16, 06/17 Medications and IVs Current Medications Medications (Trade) Dose Ordered Sig/Diamond Route Start Time Stop Time Status Last Admin (Morphine Inj) 2 mg Q30M PRN IV 06/14/17 13:00 06/19/17 08:57 Ondansetron HCl 4 mg 4 mg Q6H PRN IV 06/14/17 13:00 (NS 1000 ml Inj) 1,000 ml @ 0 mls/hr Q0M PRN IV 06/14/17 13:28 06/14/17 15:33 Heparin Sodium (Porcine) 8000 units 8,000 units UNSCH PRN IVF 06/14/17 13:30 Sodium Chloride 1,000 ml @ 200 mls/hr Q5H PRN IV 06/14/17 13:28 (NS 1000 ml Inj) 1,000 ml @ 0 mls/hr Q0M PRN IV 06/14/17 13:28 (Mannitol Inj) 12.5 gm UNSCH PRN IV 06/14/17 13:30 (Albumin 25% Inj) 25 gm UNSCH PRN IV 06/14/17 13:30 (NS Flush) 5 ml UNSCH PRN IV FLUSH 06/14/17 13:30 (Heparin Inj) UNSCH PRN .XX 06/14/17 13:30 (Gentamicin (Dialysis) Inj) 20 mg UNSCH PRN IV 06/14/17 13:30 (Zofran Inj) 4 mg UNSCH PRN IV 06/14/17 13:30 (Tylenol) 650 mg UNSCH PRN PO 06/14/17 13:30 (Benadryl) 25 mg UNSCH PRN PO 7/23/17 13:30 06/19/17 10:23 (Nitrostat Sl) 0.4 mg UNSCH PRN SL 06/14/17 13:30 (Catapres) 0.1 mg UNSCH PRN PO 06/14/17 13:30 (Gelfoam 12 Mm/7 Mm Top) 1 foam UNSCH PRN TOP 06/14/17 13:30 06/19/17 10:23 (D50w (Vial) Inj) 50 ml UNSCH PRN IV 06/14/17 14:00 (Glucagon Inj) 1 mg UNSCH PRN OTHER 06/14/17 14:00 (Nitroglycerin 2% Oint) 2 inch Q6HR TOPICAL 06/14/17 18:00 06/19/17 05:39 (Lopressor) 25 mg Q8HR PO 06/14/17 22:00 06/19/17 05:39 (Aspirin Chew) 162 mg DAILY PO 06/16/17 09:00 06/19/17 08:57 (Plavix) 75 mg DAILY PO 06/16/17 09:00 06/19/17 08:57 (Benadryl) 25 mg Q4H PRN PO 06/17/17 09:15 06/19/17 01:15 (Sensipar) 30 mg DAILY PO 06/17/17 10:00 06/19/17 08:57 (NS Flush) 2 ml UNSCH PRN .XX 06/17/17 14:30 (NS Flush) 2 ml BID .XX 06/17/17 21:00 06/19/17 08:57 (Renvela) 2,400 mg TIDAC PO 06/18/17 08:00 06/19/17 08:00 (Baudilio Bain MD R1) A/P Assessment and Plan Patient is a 57 year old female with past history of ESRD and diabetes who complained of chest pain. Patient states that at her last dialysis visit two days prior to admission labs were drawn and were normal at that time. Potassium 6.4 in the ED, Troponins 1.65 and creatinine 8.73 which is similar to past reported creatinines (7.88 in 08/22/16). Incidentally notes healing left foot wound, previously debrided approximately 6 months ago at a different hospital. She said there was "no bone infection" at the time. She states now that the wound is itchy. Podiatry recommends vascular optimization prior to debridement, can be followed up outpatient. Currently S/P 3 catheterizations. (Baudilio Bain MD R1) Attending Attestation Round table discussion with Dr Rayo, Dr Montez, Dr Melendez and Dr Hoff about patients admission and subsequent hospital course was held this am,EMR reviewed , patient seen and limited examined by team due to patients refusal,agree with Assessment and Plan and contents of this note, see Orders (Nabil Salazar MD) Problem List: (1) NSTEMI (non-ST elevated myocardial infarction) Status: Acute Plan: Resting chest pain starting at 1:30 am 06/14. No significant improvement at admission. Per ED note, no ST elevation noted on ECG in ED. Troponin 1.65 at admission, . Troponins were to be drawn Q6 x3. Second set of troponins delayed due to the patient being in dialysis at the time of the blood draw. Contacted Dialysis which confirmed her troponins could not be obtained at that time. Cardiac catheterization performed 06/16/17 * Catheterization x3, 06/15, 06/16, 06/17, * Follow cardiology recommendations * Troponins 1.65 @ 1105 (06/14), 18.90 @ 0020 (06/15) , 24.00 @ 0450 * ASA 162 mg daily * Morphine for pain control * Metoprolol 25mg q8 * Nitroglycerin * Plavix 75 daily (2) Hyperkalemia Status: Acute Plan: ESRD and hyperkalemia. * Dialysis 06/14, 06/16, 06/18, 06/19 * Follow potassium and treat as needed * Nephrology consulted, recommends resuming MWF dialysis (3) Ulcer of left foot Status: Chronic Plan: 6 month old ulcer of left foot which had been debrided at different hospital. Patient reported that she has been changing the dressing and packing every 3 days. * Maintain clean and dry * Wound care called and advised debridement of large eschar on bottom of foot for better treatment, consulted podiatry. * CTA foot with runoff completed * Podiatry recommends vascular optimization prior to debridement, can be followed up outpatient * Benadryl for itchyness (4) ESRD (end stage renal disease) on dialysis Status: Chronic Plan: ESRD with creatinine 8.73 and hyperkalemia on admission. * Dialysis 06/14, 06/16, again today * Will restart MWF dialysis * Follow nephrology recommendations (5) Diabetes type 2, controlled Status: Chronic Plan: Diabetes type 2, non insulin dependent, reported as well controlled. * Discontinue home medications * low dose sliding scale insulin (6) Hypertension Status: Acute Plan: Hypertension at home, controlled with home medications. Currently ongoing NSTEMI * Continue home amlodipine 5mg if elevated * Follow cardiology recommendations (7) FEN Status: Acute Plan: Fluids - NPO until catheterizations Electrolytes - hyperkalemia and ESRD, Follow and correct as necessary Nutrition -Diabetic diet Code -Full DVT proph - on plavix, SCDs (Baudilio Bain MD R1) Problem Qualifiers (1) Ulcer of left foot: Qualified Code: L97.522 - Ulcer of left foot, with fat layer exposed (2) Diabetes type 2, controlled: Qualified Code: E11.51 - Controlled type 2 diabetes mellitus with diabetic peripheral angiopathy without gangrene, without long-term current use of insulin Baudilio Bain MD R1 Jun 19, 2017 12:21 Nabil Salazar MD Jun 19, 2017 13:59 Baudilio Bain MD R1 Jun 19, 2017 12:21
--- NOTE | 2017-06-19 21:22 | MR ---
cc: ARSENIO FIORE MD DATE 06/17/17 Staged PCI of the distal ramus intermedius vessel. INDICATIONS Non STEMI with initial 95% proximal LAD stenosis, 95% distal right coronary stenosis and 95% distal ramus intermedius vessel stenosis, indeterminate culprit to her symptoms and troponin elevation. She had a peak troponin of 24. She had staging of the lesions with PCI of the LAD done first due to its being the highest risk lesion of the three. The patient had persistent chest pain post procedure therefore was medically indicated to proceed with staged PCI of the right coronary artery which was done yesterday. She still had resting chest pain despite PCI of the LAD and the right coronary artery. Therefore, it was determined to be medically necessary to proceed with PCI of the distal ramus intermedius vessel. PROCEDURE IN DETAIL The patient was brought to cardiac catheterization laboratory, prepped and draped in the usual sterile fashion. The existing 6-Martiniquais sheath was exchanged over a wire for a sterile sheath under sterile technique, 6-Martiniquais XB 4.0 guide 0.014 Prowater guidewire were used to cross the distal ramus intermedius vessel. The vessel was predilated with a 2.5 x 12 [place] balloon one inflation 10 atmospheres 20 seconds, then placed a 2.5 x 9 integrity stent one inflation 11 atmospheres 20 seconds. Stenosis went from 95% to 0% with PASCALE-III flow. CONCLUSION 1. Successful PCI of the distal ramus intermedius vessel from 95% to 0% PASCALE-III flow. 2. Recommend continue aspirin 162 mg daily, Plavix 75 mg daily we will run Aggrastat drip for 18 hours per protocol. Continue optimal medical therapy with beta christofer. Note - statin has not been given due to history of hepatitis C and elevated liver enzymes. Also note the patient has a small marginal vessel which has an ostial 95% stenosis in the 30-45 degree angulation off the left circumflex vessel. Would recommend treating this medically due to the risk of jailing the AV groove left circ which then supplies two small posterolateral arteries distally. If the patient fails optimal medical therapy, could consider relatively higher risk PCI of the ostial obtuse marginal vessel. Arsenio Fiore MD [facility]/ /2:18 PM /9:10 PM
== END 2017-06-19 16:55 | disposition home or self-care (01) | DRG 248 ==
LOC: NEPE 10:39 → NEDA 12:47 → HCIS 15:07
PROVIDERS: ADMIT Family Medicine; ATTEND Family Medicine
PROC: 5A1D60Z (ICD-10-PCS; 2017-06-14)
PROC: 4A023N7 Measurement of Cardiac Sampling and Pressure, Left Heart, Percutaneous Approach (ICD-10-PCS; 2017-06-15)
PROC: B2111ZZ Fluoroscopy of Multiple Coronary Arteries using Low Osmolar Contrast (ICD-10-PCS; 2017-06-15)
PROC: B2151ZZ Fluoroscopy of Left Heart using Low Osmolar Contrast (ICD-10-PCS; 2017-06-15)
PROC: 02703DZ Dilation of Coronary Artery, One Artery with Intraluminal Device, Percutaneous Approach (ICD-10-PCS; principal; 2017-06-15 13:45)
PROC: 02703FZ Dilation of Coronary Artery, One Artery with Three Intraluminal Devices, Percutaneous Approach (ICD-10-PCS; 2017-06-16)
PROC: B2101ZZ Fluoroscopy of Single Coronary Artery using Low Osmolar Contrast (ICD-10-PCS; 2017-06-16)
PROC: 02703DZ Dilation of Coronary Artery, One Artery with Intraluminal Device, Percutaneous Approach (ICD-10-PCS; 2017-06-17)
DX: I21.4 Non-ST elevation (NSTEMI) myocardial infarction (principal); N18.6 End stage renal disease; I13.2 Hypertensive heart and chronic kidney disease with heart failure and with stage 5 chronic kidney disease, or end stage renal disease; I42.9 Cardiomyopathy, unspecified; E11.22 Type 2 diabetes mellitus with diabetic chronic kidney disease; E11.51 Type 2 diabetes mellitus with diabetic peripheral angiopathy without gangrene; I25.110 Atherosclerotic heart disease of native coronary artery with unstable angina pectoris; E87.5 Hyperkalemia; I50.9 Heart failure, unspecified; M54.9 Dorsalgia, unspecified; M19.90 Unspecified osteoarthritis, unspecified site; B18.2 Chronic viral hepatitis C; E11.621 Type 2 diabetes mellitus with foot ulcer; L97.529 Non-pressure chronic ulcer of other part of left foot with unspecified severity; Z99.2 Dependence on renal dialysis; M06.9 Rheumatoid arthritis, unspecified; E21.3 Hyperparathyroidism, unspecified; Z82.49 Family history of ischemic heart disease and other diseases of the circulatory system; Z83.6 Family history of other diseases of the respiratory system; Z80.9 Family history of malignant neoplasm, unspecified; R05 Cough; R11.10 Vomiting, unspecified
CPT/HCPCS: 71010; 73630; 75635; 76937; 80048; 80053; 80061; 80076; 82550; 82552; 82948; 83735; 84100; 84484; 85002; 85025; 85027; 85347; 85610; 85652; 85730; 87040; 90935; 92928; 93005; 93454; 93458; 96374; 96375; C1725; C1769; C1876; C1887; C1893; J1644; J1815; J2250; J2270; J3246; J7030; Q9967

== ENCOUNTER 2017-11-03 11:02 | Emergency (ER) | payer MEDICARE, OTHER ==
[~2017-11-03 11:02] MED LIST changes: +ASPI81CH25 PO; -BACT2OIN TOP; -CEPH500C3 PO; +CINA30 PO; -CYCL-36 PO; +DOXA1TAB35 PO; +FOLI1TAB6 PO; +GABA100C4 PO; -HYDR-3533 PO; +HYDR200T3 PO; +METO25TA3 PO; +MULTTAB27 PO; -NEPHRO PO; +NITR0.4S SL; +PLAV75TA29 PO; -RENA800T PO; +TRAD5TAB PO; -[UNRECOGNIZED DRUG - REMARK]; -[UNRECOGNIZED DRUG - REMARK]; -bp med
[2017-11-03 11:05] VITALS: BP 113/57; PULSE 85; RESP 15; TEMP 98.8; O2SAT 98
--- NOTE | 2017-11-03 11:15 | PD ---
HPI Chief Complaint: Skin Problem Time Seen by Provider: 11:14 Travel History International Travel<30 days: No Contact w/Intl Traveler<30days: No Traveled to known affect area: No History of Present Illness HPI 57 YO right hand dominant F with PMH of DM, CKD on dialysis M, W, F presents to the ED for evaluation of 3 day history of 10/10 throbbing pain of the left 4th digit. Onset gradual, radiating into the hand. Worsened by touch. Improved by elevation. Patient denies known injury. She denies Accuchecks in the left hand. Denies numbness, tingling, limitation to ROM. Denies history of gout. She states " there's some pus in there." She states that she was using household cleaning chemicals to clean recently. She states the pain kept her up last night despite treating with extra strength Tylenol. Followed by Dr. Borden. [facility] Past Medical History Arthritis: Yes Blood Disorders: No Heart Rhythm Problems: No Cancer: No Cardiovascular Problems: Yes High Cholesterol: No Chemotherapy: No Chest Pain: No Congestive Heart Failure: Yes Diabetes: Yes Dialysis: Yes Diminished Hearing: No Endocrine: Yes ( accuchecks ac&hs) Genitourinary: Yes Hepatitis: Yes (HEP C) Hypertension: Yes Immune Disorder: No Kidney Stones: No Musculoskeletal: Yes Neurologic: Yes Psychiatric: No Reproductive: No Respiratory: No Myocardial Infarction: No Radiation Therapy: No Renal Failure: Yes Thyroid Disease: No Menopausal: Yes : 3 Para: 3 Past Surgical History Abdominal Surgery: Yes AICD: No Arteriovenous Shunt: No Cardiac Surgery: No Section: Yes (X 3) Ear Surgery: No Endocrine Surgery: No Eye Surgery: No Genitourinary Surgery: No Gynecologic Surgery: Yes ( X3 LAST IN SEP 1980 ) Hysterectomy: Yes Insulin Pump: No Joint Replacement: No Oral Surgery: No Pacemaker: No Thoracic Surgery: No Other Surgery: Yes (AV FISTULA PLACEMENT (L. ARM) - 2008) Social History Alcohol Use: No Tobacco Use: No Substance Use: No Allergies-Medications (Allergen,Severity, Reaction): Coded Allergies: latex (Unverified Allergy, Severe, 11/03/17) RASH Reported Meds & Prescriptions Reported Meds & Active Scripts Active Bactrim DS (Sulfamethoxazole-Trimethoprim) 800-160 Mg Tab 1 Tab PO BID Tylenol (Acetaminophen) 325 Mg Tab 650 Mg PO Q8HR PRN Aspirin Low Strength (Aspirin) 81 Mg Chew 162 Mg PO DAILY Nitrostat SL (Nitroglycerin) 0.4 Mg Subl 0.4 Mg SL UNSCH PRN Metoprolol Tartrate 25 Mg Tab 25 Mg PO Q8HR Plavix (Clopidogrel Bisulfate) 75 Mg Tab 75 Mg PO DAILY Reported Tradjenta (Linagliptin) 5 Mg Tab 5 Mg PO DAILY Sensipar (Cinacalcet) 30 Mg Tab 30 Mg PO BID Doxazosin (Doxazosin Mesylate) 2 Mg Tab 2 Mg PO HS Folic Acid 1 Mg Tablet 1 Mg PO DAILY Multi-Day Vitamins (Multiple Vitamin) 1 Tab Tab 1 Tab PO DAILY Hydroxychloroquine (Hydroxychloroquine Sulfate) 200 Mg Tab 200 Mg PO DAILY Takw with food Gabapentin 100 Mg Cap 100 Mg PO TID Review of Systems Except as stated in HPI: all other systems reviewed are Neg Physical Exam Narrative GENERAL: Well-nourished, well-developed black female in NAD. SKIN: Focused skin assessment warm/dry. HEAD: Normocephalic. EYES: No scleral icterus. No injection or drainage. NECK: Supple, trachea midline. No JVD or lymphadenopathy. CARDIOVASCULAR: Regular rate and rhythm without murmurs, gallops, or rubs. RESPIRATORY: Breath sounds clear and equal bilaterally. No accessory muscle use. GASTROINTESTINAL: Abdomen soft, non-tender, nondistended. MUSCULOSKELETAL: No cyanosis, or edema. FOCUSED LEFT UPPER EXTREMITY EXAM: palpable radial pulse. 4th digit with tense, tender erythema of the palmar aspect of the distal phalanx. 0.5 cm blistering area on the distal lateral palmar tip of the 4th digit, possibly ischemia. 5/5 hockey instructor strength. Cap refill greater than 2 seconds. Well-healed fistula in the left upper arm, palpable thrill. Patient retains full, active ROM of the left upper extremity. BACK: Nontender without obvious deformity. No CVA tenderness. Data Data Last Documented VS Vital Signs Date Time Temp Pulse Resp B/P (MAP) Pulse Ox O2 Delivery O2 Flow Rate FiO2 11/03/17 11:05 98.8 85 15 113/57 (75) 98 Orders Orders Finger ([id number]) (11/03/17 11:17) Lidocaine 1% Inj (50 Ml) (Xylocaine 1% I (11/03/17 12:15) Tramadol (Ultram) (11/03/17 12:30) Abscess Culture And Gram Stain (11/03/17 12:28) Ed Discharge Order (11/03/17 12:31) [facility] Medical Decision Making Medical Screen Exam Complete: Yes Emergency Medical Condition: Yes Differential Diagnosis felon versus cellulitis versus PVD versus osteomyelitis versus chemical burn versus tendonitis versus other Narrative Course 57 YO right hand dominant F with PMH of DM, CKD on dialysis M, W, F presents to the ED for evaluation of 3 day history of 10/10 throbbing pain of the left 4th digit. Onset gradual, radiating into the hand. Worsened by touch. Improved by elevation. Patient denies known injury, Accuchecks in the left hand, numbness, tingling, limitation to ROM, history of gout. She states " there's some pus in there." Vitals reviewed. On physical exam there is tense, tender erythema of the left 4th digit, palmar aspect of the distal phalanx. 0.5 cm blistering area on the distal lateral palmar tip of the 4th digit, possibly ischemia. No signs of tendonitis. Xray reveals dense calcifications of the small vessels, but otherwise negative. I&D was performed, see my note for details. She was administered tramadol by mouth. She is prescribed Bactrim, Tylenol. She is instructed to follow-up with the on-call hand surgeon was provided his information. She states she has an appointment with her primary care provider tomorrow and will follow-u by this venue. I explained to the patient that this could be a vascular issue. She indicated understanding of the need to follow up. She is stable and discharged home. Procedures Procedure Narrative INCISION AND DRAINAGE OF ABSCESS: The area was prepped and was sterilely draped. A subcutaneous wheal of 1 % Xylocaine with a total number 0.5 mL was used to anesthetize the area properly. A number 11 scalpel was used to make a 0.25 -cm incision across the area of the abscess. The abscess was drained, complex loculations were broken down, and irrigated with normal saline. Cultures were obtained. Sterile dressing applied. Diagnosis Primary Impression: Pain in finger of left hand Referrals: Vlad Mccarty MD Additional Instructions: Rest, hydrate. Keep the hand elevated to reduce throbbing pain. Take antibiotics as prescribed. Take pain medication as prescribed. Follow-up with the hand surgeon tomorrow morning as discussed. Return to the ED for worsening symptoms or any urgent or emergent medical condition. Med/Other Pt SpecificInfo: Prescription(s) given Scripts Sulfamethoxazole-Trimethoprim (Bactrim DS) 800-160 Mg Tab 1 TAB PO BID for Infection, #14 TAB 0 Refills Prov: Danish Stevenson MD 11/03/17 Acetaminophen (Tylenol) 325 Mg Tab 650 MG PO Q8HR Y for PAIN SCALE 1 TO 10, #12 TAB 0 Refills Prov: Danish Stevenson MD 11/03/17 Disposition: 01 DISCHARGE HOME Condition: Stable Jeanna Sinclair Nov 03, 2017 11:15
--- NOTE | 2017-11-03 11:46 | RADRPT ---
EXAM DATE/TIME: 11/03/2017 11:31 [facility] COMPARISON: No previous studies available for comparison. INDICATIONS : Pain in the left 4th digit, no known injury. MEDICAL HISTORY : None. SURGICAL HISTORY : None. ENCOUNTER: Initial ACUITY: 1 week PAIN SCORE: 10/10 LOCATION: Left 4th digit FINDINGS: Examination of the fourth digit of the left hand demonstrates no evidence of fracture or dislocation. No radiopaque foreign bodies are seen. Dense atherosclerotic calcification of the small vessels of the hand. CONCLUSION: 1. No fracture or significant degenerative changes. 2. Dense atherosclerotic calcification of the small vessels of the hand. Aristeo Mckenzie MD on November 03, 2017 at 11:43 Board Certified Radiologist. This report was verified electronically.
[2017-11-03] MEDS ORDERED: LIDOCAINE HCL 1% 50 ML VIAL INFIL ONE (12:15)
[2017-11-03] MEDS ORDERED: TYLE325T PO (12:30)
[2017-11-03] MEDS ORDERED: BACT800T5 PO (12:30)
[2017-11-03] MEDS ORDERED: traMADol HCL 50 MG TAB PO ONE (12:30)
== END 2017-11-03 13:00 | disposition home or self-care (01) ==
LOC: NEPK 11:02
DX: M79.645 Pain in left finger(s) (principal); E11.22 Type 2 diabetes mellitus with diabetic chronic kidney disease; I13.0 Hypertensive heart and chronic kidney disease with heart failure and stage 1 through stage 4 chronic kidney disease, or unspecified chronic kidney disease; N18.9 Chronic kidney disease, unspecified; I50.9 Heart failure, unspecified; M19.90 Unspecified osteoarthritis, unspecified site; Z86.19 Personal history of other infectious and parasitic diseases; Z79.02 Long term (current) use of antithrombotics/antiplatelets; Z79.82 Long term (current) use of aspirin
CPT/HCPCS: 10060; 73140; 86403; 87070; 87205

== ENCOUNTER 2017-11-20 19:30 | Inpatient (IN) | payer MEDICARE, OTHER ==
[~2017-11-20] VITALS: Ht 160 cm; Wt 53.7 kg
[~2017-11-20 19:30] MED LIST changes: +BACT800T5 PO; +TYLE325T PO
[2017-11-20 19:32] VITALS: BP 160/72; PULSE 90; RESP 18; TEMP 100.2; O2SAT 93
[2017-11-20 19:56] VITALS: BP 164/77; PULSE 89; RESP 16; TEMP 99.7; O2SAT 96
[2017-11-20] MEDS ORDERED: METO25TA3 PO (20:02)
[2017-11-20] MEDS ORDERED: [UNRECOGNIZED DRUG - CODE] PO (20:02)
[2017-11-20 20:45] LABS: AUTOMATED NEUTROPHIL # 5.6 TH/MM3 (1.8-7.7); BASOPHIL # 0.1 TH/MM3 (0-0.2); EOSINOPHIL # 0.1 TH/MM3 (0-0.4); EOSINOPHIL % 1.5 % (0.0-4.0); HEMATOCRIT 37.3 % (35.0-46.0); HEMOGLOBIN 11.9 GM/DL (11.6-15.3); LYMPH % 14.7 % (9.0-44.0); LYMPHOCYTE # 1.2 TH/MM3 (1.0-4.8); MEAN CELL VOLUME 90.4 FL (80.0-100.0); MEAN CORPUSCULAR HEMOGLOBIN 28.9 PG (27.0-34.0); MEAN CORPUSCULAR HGB CONC 31.9 % (32.0-36.0); MEAN PLATELET VOLUME 9.4 FL (7.0-11.0); MONO % 12.7 % (0.0-8.0); NEUT % 70.1 % (16.0-70.0); PLATELET COUNT 225 TH/MM3 (150-450); RED BLOOD COUNT 4.13 MIL/MM3 (4.00-5.30); RED CELL DISTRIBUTION WIDTH 16.1 % (11.6-17.2)
--- NOTE | 2017-11-20 21:05 | PD ---
Physical Exam Narrative General: The patient is a well-developed well-nourished female in no acute distress. Head and Neck exam: Head is normocephalic atraumatic. Eyes: EOMI, pupils are equal round and reactive to light. Nose: Midline septum with pink mucous membranes Mouth: Dentition unremarkable. Moist mucus membranes. Posterior oropharynx is not erythematous. No tonsillar hypertrophy. Uvula midline. Airway patent. Neck: No palpable lymphadenopathy. No nuchal rigidity. No thyromegaly. Cardiovascular: Regular rate and rhythm without murmurs, gallops, or rubs. No pulse deficit to the extremities and simultaneous auscultation and palpation of her radial artery. Lungs: Clear to auscultation bilaterally. No wheezes, rhonchi, or rales. Abdomen: Soft, without tenderness to palpation in all 4 quadrants of the abdomen. No guarding, rebound, or rigidity. Normal bowel sounds are audible. No tenderness on palpation of McBurney's point. Extremities: No clubbing, cyanosis, or edema. 2+ pulses in bilateral upper extremities. Her Pulses in bilateral lower extremities are difficult to palpate. The patient has warmth of bilateral feet that is comparable. Cap refill is also difficult to assess in this patient with extremely dry and dark coloration to her skin. The area of interest is the right foot. The patient is noted to have a wound along the base of the second and the third toe with what appears to be necrosis of the entire third toe. The patient is also noted to have an area of ulceration along the dorsal aspect of the right fifth toe. The patient reports exquisite tenderness on palpation of the second third fourth and fifth toes. The patient is a palpable thrill on the left upper arm related to her AV graft that appears to be in good repair. Back: No spinous process tenderness to palpation. No costovertebral angle tenderness to palpation. Neurologic Exam: Grossly nonfocal Skin Exam: No other rashes noted. Data Data Last Documented VS Vital Signs Date Time Temp Pulse Resp B/P (MAP) Pulse Ox O2 Delivery O2 Flow Rate FiO2 11/20/17 22:45 87 16 163/78 (106) 97 Room Air 11/20/17 19:56 99.7 Orders Orders Foot, Complete ([id number]) (11/20/17 20:33) Complete Blood Count With Diff (11/20/17 20:33) Basic Metabolic Panel (Bmp) (11/20/17 20:33) Iv Access Insert/Monitor (11/20/17 20:33) Electrocardiogram (11/20/17 21:02) Chest, Single Ap (11/20/17 21:02) Admit Order (Ed Use Only) (11/20/17 22:46) Vancomycin Inj (Vancomycin Inj) (11/20/17 22:46) Piperacil-Tazo 3.375 Gm Premix (Zosyn 3. (11/20/17 23:00) Labs Laboratory Tests Test 11/20/17 20:04 11/20/17 21:35 White Blood Count 8.0 TH/MM3 Red Blood Count 4.13 MIL/MM3 Hemoglobin 11.9 GM/DL Hematocrit 37.3 % Mean Corpuscular Volume 90.4 FL Mean Corpuscular Hemoglobin 28.9 PG Mean Corpuscular Hemoglobin Concent 31.9 % Red Cell Distribution Width 16.1 % Platelet Count 225 TH/MM3 Mean Platelet Volume 9.4 FL Neutrophils (%) (Auto) 70.1 % Lymphocytes (%) (Auto) 14.7 % Monocytes (%) (Auto) 12.7 % Eosinophils (%) (Auto) 1.5 % Basophils (%) (Auto) 1.0 % Neutrophils # (Auto) 5.6 TH/MM3 Lymphocytes # (Auto) 1.2 TH/MM3 Monocytes # (Auto) 1.0 TH/MM3 Eosinophils # (Auto) 0.1 TH/MM3 Basophils # (Auto) 0.1 TH/MM3 CBC Comment DIFF FINAL Differential Comment Blood Urea Nitrogen 35 MG/DL Creatinine 6.47 MG/DL Random Glucose 143 MG/DL Calcium Level 8.9 MG/DL Sodium Level 136 MEQ/L Potassium Level 4.2 MEQ/L Chloride Level 97 MEQ/L Carbon Dioxide Level 29.1 MEQ/L Anion Gap 10 MEQ/L Estimat Glomerular Filtration Rate 8 ML/MIN [facility] Medical Record Reviewed: Yes Supervised Visit with HESHAM: Yes Interpretation(s) Last Impressions Chest X-Ray 11/20/172101 Signed Impressions: Service Date/Time: Monday, November 20, 2017 21:18 - CONCLUSION: Stable appearance with no acute cardiopulmonary disease. Baudilio Schuster MD Foot X-Ray 11/20/172032 Signed Impressions: Service Date/Time: Monday, November 20, 2017 20:44 - CONCLUSION: 1. Eopenia and osteophytic change. 2. No evidence to suggest osteomyelitis. Baudilio Schuster MD Differential Diagnosis Dry gangrene, versus skin ulceration and infection, versus osteomyelitis, versus peripheral arterial disease, versus thrombosis Narrative Course I, Dr. Lara, have reviewed the advance practice practitioner's documentation and am in agreement, met with the patient face to face, made the diagnosis, and the medical decision making was done by me. The patient was initially evaluated by Veronica, the nurse practitioner. Please see their complete history and physical. *My assessment and Findings: The patient presents with a reported history of right foot pain that began approximately a week ago. She denies any trauma or injury to the foot. She did not realize that she had wounds on her foot until she arrived in the emergency department. She denies being in any wound care program. She reports that she has had problems with her left foot in the past and had a cyst surgically removed from the left foot previously. The patient reports having history of chronic renal failure on hemodialysis. She did receive her usual dialysis today and reports that she received the entire course of that she did feel slightly short of breath during the treatment. She denies having any known fevers at home, however she arrives with a temp of 100.3. She denies having any recent cough or congestion. She denies having any recent chest pain. The patient's examination was remarkable for what appears to be necrosis of the third digit of the right foot with areas of ulceration at the base of the second toe and dorsal aspect of the right fifth toe. The patient has hyperpigmentation of her lower extremities suggestive of venous stasis changes. The patient has no palpable pulses of her lower extremities. The patient will have Doppler done of bilateral lower extremities to assess for pulses. The patient does have warm feet on examination suggestive of circulation. The patient has dopplerable pulses in bilateral feet. During the course of the patients emergency department visit, the patients history, examination, and differential diagnosis were reviewed with the patient. The patient was placed on a advertising agency manager with oximetry and frequent blood pressure monitoring. The patient had IV access obtained and blood work sent for analysis. An ECG was done that shows a sinus rhythm heart rate of 82, evidence of left ventricular hypertrophy by voltage, QRS duration 87 ms, QTC [address] segment elevation. T waves are inverted in lead 3. The patient was initially provided Zosyn and vancomycin for broad-spectrum antibiotic coverage for possible underlying osteomyelitis. The patients laboratory studies were reviewed and remarkable for a white count of 8.0, hemoglobin 11.9, platelets 225 with neutrophils 70.1, monocytes 12.7 Radiology studies were reviewed and remarkable for a right foot x-ray that reveals osteopenia, osteophytic change, no evidence to suggest osteomyelitis. The patients results were discussed with the patient, including the plan of care. I explained that further testing and/ or monitoring is indicated based on the patients history, examination, and/ or laboratory findings. Therefore, I recommended admission for additional evaluation. The patient expressed understanding and was agreeable with this plan. The patient was admitted to the hospital in guarded condition and sent to a bed under the care of the [facility]. Diagnosis Primary Impression: Gangrene of foot Admitting Information Admitting Physician Requests: Admit Citlalli Lara MD Nov 20, 2017 21:05
--- NOTE | 2017-11-20 21:10 | PD ---
HPI Chief Complaint: Respiratory Symptoms Time Seen by Provider: 20:24 Travel History International Travel<30 days: No Contact w/Intl Traveler<30days: No Traveled to known affect area: No History of Present Illness HPI 57-year-old female presents emergency department for evaluation of right foot pain that she first noticed one week ago. Upon assessment the 3rd digit and base of 2nd digit on the right foot appears black necrotic and is malodorous. There is noted to be an wound ulcer to the dorsal aspect of the 5th digit of the right foot. She report tremendous tenderness to palpation of toes. Feet are noted to be warm. Pedal pulses heard using Doppler. Skin to the bottom of bilateral feet are found to be thick and dry. Patient is a hemodialysis patient that received treatment Thursday, Thursday and Thursday. She is noted to have a AV graft to her left upper arm. She received treatment today. The patient did not report to me, however reported to the RN that she became short of breath at dialysis. Patient denies any fevers at home, she is found to have a temp of 100.2 in triage. Patient is non-ambulatory and presents to the ED in her wheelchair. PFSH Past Medical History Arthritis: Yes Blood Disorders: No Heart Rhythm Problems: No Cancer: No Cardiovascular Problems: Yes High Cholesterol: No Chemotherapy: No Chest Pain: No Congestive Heart Failure: Yes Diabetes: Yes Patient Takes Glucophage: No Dialysis: Yes Diminished Hearing: No Endocrine: Yes ( accuchecks ac&hs) Genitourinary: Yes Hepatitis: Yes (HEP C) Hypertension: Yes Immune Disorder: No Kidney Stones: No Musculoskeletal: Yes Neurologic: Yes Psychiatric: No Reproductive: No Respiratory: No Myocardial Infarction: No Radiation Therapy: No Renal Failure: Yes Thyroid Disease: No Tetanus Vaccination: < 5 Years Influenza Vaccination: Yes ?: Not LMP: menapause Menopausal: Yes : 3 Para: 3 Past Surgical History Abdominal Surgery: Yes AICD: No Arteriovenous Shunt: No Cardiac Surgery: No Section: Yes (X 3) Ear Surgery: No Endocrine Surgery: No Eye Surgery: No Genitourinary Surgery: No Gynecologic Surgery: Yes ( X3 LAST IN SEP 1980 ) Hysterectomy: Yes Insulin Pump: No Joint Replacement: No Oral Surgery: No Pacemaker: No Thoracic Surgery: No Other Surgery: Yes (AV FISTULA PLACEMENT (L. ARM) - 2008) Social History Alcohol Use: No Tobacco Use: No Substance Use: No Allergies-Medications (Allergen,Severity, Reaction): Coded Allergies: latex (Unverified Allergy, Severe, 11/20/17) RASH Reported Meds & Prescriptions Reported Meds & Active Scripts Active Aspirin Low Strength (Aspirin) 81 Mg Chew 162 Mg PO DAILY Nitrostat SL (Nitroglycerin) 0.4 Mg Subl 0.4 Mg SL UNSCH PRN Plavix (Clopidogrel Bisulfate) 75 Mg Tab 75 Mg PO DAILY Reported Diabetic Vitamin Capsule (Mv-Mn/Folic AC/Alip Acid/Coq10) 800 Mcg-150 Mg-50 Mg Capsule 1 Tab PO DAILY Metoprolol Tartrate 25 Mg Tab 25 Mg PO BID Tradjenta (Linagliptin) 5 Mg Tab 5 Mg PO DAILY Sensipar (Cinacalcet) 30 Mg Tab 60 Mg PO BID Doxazosin (Doxazosin Mesylate) 2 Mg Tab 2 Mg PO HS Folic Acid 1 Mg Tablet 1 Mg PO DAILY Hydroxychloroquine (Hydroxychloroquine Sulfate) 200 Mg Tab 200 Mg PO DAILY Takw with food Gabapentin 100 Mg Cap 100 Mg PO TID Review of Systems Except as stated in HPI: all other systems reviewed are Neg Physical Exam Narrative GENERAL: Well-nourished well-developed 57-year-old female in no acute distress. SKIN: Third digit and base of second digit of right foot blackened, necrotic and malodorous. Skin to bilateral feet thicken and dry. HEAD: Atraumatic. Normocephalic. EYES: Pupils equal and round. No scleral icterus. No injection or drainage. ENT: No nasal bleeding or discharge. Mucous membranes pink and moist. NECK: Trachea midline. No JVD. CARDIOVASCULAR: Regular rate and rhythm. No murmur appreciated. Pedal pulses Dopplered. +2 radial pulses. RESPIRATORY: No accessory muscle use. Clear to auscultation. Breath sounds equal bilaterally. GASTROINTESTINAL: Abdomen soft, non-tender, nondistended. Hepatic and splenic margins not palpable. MUSCULOSKELETAL: No obvious deformities. No clubbing. No cyanosis. No edema. NEUROLOGICAL: Awake and alert. No obvious cranial nerve deficits. Motor grossly within normal limits. Normal speech. PSYCHIATRIC: Appropriate mood and affect; insight and judgment normal. Data Data Last Documented VS Vital Signs Date Time Temp Pulse Resp B/P (MAP) Pulse Ox O2 Delivery O2 Flow Rate FiO2 11/20/17 22:45 87 16 163/78 (106) 97 Room Air 11/20/17 19:56 99.7 Orders Orders Foot, Complete ([id number]) (11/20/17 20:33) Complete Blood Count With Diff (11/20/17 20:33) Basic Metabolic Panel (Bmp) (11/20/17 20:33) Iv Access Insert/Monitor (11/20/17 20:33) Electrocardiogram (11/20/17 21:02) Chest, Single Ap (11/20/17 21:02) Admit Order (Ed Use Only) (11/20/17 22:46) Vancomycin Inj (Vancomycin Inj) (11/20/17 22:46) Piperacil-Tazo 3.375 Gm Premix (Zosyn 3. (11/20/17 23:00) Consult Vascular Surgery (11/20/17 ) Labs Laboratory Tests Test 11/20/17 20:04 11/20/17 21:35 White Blood Count 8.0 TH/MM3 Red Blood Count 4.13 MIL/MM3 Hemoglobin 11.9 GM/DL Hematocrit 37.3 % Mean Corpuscular Volume 90.4 FL Mean Corpuscular Hemoglobin 28.9 PG Mean Corpuscular Hemoglobin Concent 31.9 % Red Cell Distribution Width 16.1 % Platelet Count 225 TH/MM3 Mean Platelet Volume 9.4 FL Neutrophils (%) (Auto) 70.1 % Lymphocytes (%) (Auto) 14.7 % Monocytes (%) (Auto) 12.7 % Eosinophils (%) (Auto) 1.5 % Basophils (%) (Auto) 1.0 % Neutrophils # (Auto) 5.6 TH/MM3 Lymphocytes # (Auto) 1.2 TH/MM3 Monocytes # (Auto) 1.0 TH/MM3 Eosinophils # (Auto) 0.1 TH/MM3 Basophils # (Auto) 0.1 TH/MM3 CBC Comment DIFF FINAL Differential Comment Blood Urea Nitrogen 35 MG/DL Creatinine 6.47 MG/DL Random Glucose 143 MG/DL Calcium Level 8.9 MG/DL Sodium Level 136 MEQ/L Potassium Level 4.2 MEQ/L Chloride Level 97 MEQ/L Carbon Dioxide Level 29.1 MEQ/L Anion Gap 10 MEQ/L Estimat Glomerular Filtration Rate 8 ML/MIN [facility] Medical Decision Making Medical Screen Exam Complete: Yes Emergency Medical Condition: Yes Differential Diagnosis Differential diagnosis include but not limited to cellulitis, necrosis, PAD, gangrene, osteomyelitis Narrative Course IV obtained and blood work sent to lab. CBC, BMP ordered and pending. X-ray of the right foot ordered and pending. Chest x-ray and EKG ordered and pending. CBC shows no leukocytosis or other acute abnormalities. BMP reflects poor renal function, patient in dialysis, no other acute abnormalities X-ray of the right foot shows osteophytic changes, no evidence of osteomyelitis Chest X-ray shows no acute cardiopulmonary disease. Patient will be admitted to the hospital for further evaluation of decreased perfusion to the right foot and gangrenous wound. Dr Vivas accepts admission. Broad-spectrum antibiotics, IV Zosyn and vancomycin ordered. Vascular surgeon consult placed. Patient admitted at this time. Last Impressions Chest X-Ray 11/20/172101 Signed Impressions: Service Date/Time: Monday, November 20, 2017 21:18 - CONCLUSION: Stable appearance with no acute cardiopulmonary disease. Baudilio Schuster MD Foot X-Ray 11/20/172032 Signed Impressions: Service Date/Time: Monday, November 20, 2017 20:44 - CONCLUSION: 1. Eopenia and osteophytic change. 2. No evidence to suggest osteomyelitis. Baudilio Schuster MD Diagnosis Primary Impression: Gangrene Additional Impressions: Diabetes Qualified Codes: E11.8 - Type 2 diabetes mellitus with unspecified complications Poor circulation of extremity Admitting Information Admitting Physician Requests: Admit Veronica Johns [facility] Nov 20, 2017 21:10
--- NOTE | 2017-11-20 21:10 | RADRPT ---
EXAM DATE/TIME: 11/20/2017 20:44 [facility] COMPARISON: No previous studies available for comparison. INDICATIONS : Pain and open sores. MEDICAL HISTORY : None. SURGICAL HISTORY : None. ENCOUNTER: Initial ACUITY: 1 week PAIN SCORE: 6/10 LOCATION: Right foot. FINDINGS: AP, lateral and oblique views of the right foot were obtained and demonstrate diffuse [id number] ere osteopenia. There is no acute fracture or malalignment. No focal destructive change is identified . There is no distinct periosteal new bone formation. There are degenerative changes and extensive va scular calcifications. There is no focal soft tissue abnormality. CONCLUSION: 1. Eopenia and osteophytic change. 2. No evidence to suggest osteomyelitis. Baudilio Schuster MD on November 20, 2017 at 21:07 Board Certified Radiologist. This report was verified electronically.
--- NOTE | 2017-11-20 21:55 | RADRPT ---
EXAM DATE/TIME: 11/20/2017 21:18 [facility] COMPARISON: CHEST SINGLE AP, June 14, 2017, 10:46. INDICATIONS : Shortness of breath. MEDICAL HISTORY : Hypertension. Diabetes mellitus type II. SURGICAL HISTORY : Coronary artery stent. ENCOUNTER: Initial ACUITY: 1 day PAIN SCORE: 0/10 LOCATION: Bilateral chest FINDINGS: A single view of the chest demonstrates the lungs to be symmetrically aerated without evidence of mas s, infiltrate or effusion. The the heart size is at the upper limits of normal. Atherosclerotic salazar ges are noted in the aorta. There are tracheal calcifications. Osseous structures are intact. CONCLUSION: Stable appearance with no acute cardiopulmonary disease. Baudilio Schuster MD on November 20, 2017 at 21:52 Board Certified Radiologist. This report was verified electronically.
[2017-11-20 21:58] LABS: BICARBONATE 29.1 MEQ/L (21.0-32.0); CALCIUM 8.9 MG/DL (8.5-10.1); CREATININE 6.47 MG/DL (0.50-1.00)
[2017-11-20 22:45] VITALS: BP 163/78; PULSE 87; RESP 16; O2SAT 97
[2017-11-20] MEDS ORDERED: VANCOMYCIN INJ 1,000 MG in SODIUM CHLOR 0.9% 250 ML INJ 250 ML IV STA (22:46)
--- NOTE | 2017-11-20 22:59 | HHI.HP ---
[facility] Unknown Admission Diagnosis gangrene, right foot wound, diabetes Diagnoses: (1) Gangrene of foot Diagnosis: Principal (2) ESRD (end stage renal disease) on dialysis Diagnosis: Principal (3) DM (diabetes mellitus) Diagnosis: Principal Travel History International Travel<30 Days: No Contact w/Intl Traveler <30 Da: No Traveled to Known Affected Are: No History of Present Illness This is a 57-year-old female with a PMH of HTN, Hyperlipidemia, ESRD on HD M/W/F , CHF (Echo 03/22/07 w/ EF 30-35%), Chronic Foot Ulcers and DM who presented to the ER w/ complaints of right foot pain. States symptoms have been ongoing x1 wk. Pain is sharp, constant and severe, 10/10. Exacerbated by touch, no alleviating factors. Reports associated foul-smelling drainage from right foot. Denies fever, chills, but noted to have Temp 100.2 in Triage. BP 164/77 , HR 89, O2 sat 96% on RA. CBC unremarkable except for elevated neutrophil count. Chemistry baseline, creatinine 6.47, previously 6.78 06/17/17. CXR with no acute findings. Foot X-ray with osteophytic change, no evidence of osteomyelitis. On exam, pt noted to have necrotic foot wound. Review of Systems Except as stated in HPI: all other systems reviewed are Neg ROS: 14 point review of systems otherwise negative. Past Family Social History Past Medical History PMH: HTN, Hyperlipidemia, ESRD on HD M/W/F, CHF (Echo 03/22/07 w/ EF 30-35%), Chronic Foot Ulcers and DM Past Surgical History PAST SURGICAL HISTORY: , LUE AV Fistula, Hysterectomy Allergies: Coded Allergies: latex (Unverified Allergy, Severe, 11/20/17) RASH Family History PAST FAMILY HISTORY: Reviewed. No h/o DM or CAD Social History PAST SOCIAL HISTORY: Negative for alcohol, tobacco or drugs. Physical Exam Vital Signs Vital Signs Date Time Temp Pulse Resp B/P (MAP) Pulse Ox O2 Delivery O2 Flow Rate FiO2 11/20/17 22:45 87 16 163/78 (106) 97 Room Air 11/20/17 19:56 99.7 89 16 164/77 (106) 96 Room Air 11/20/17 19:53 16 96 Room Air 11/20/17 19:32 100.2 90 18 160/72 (101) 93 Room Air Physical Exam PE: GENERAL: Middle-aged female in no acute distress. HEENT: PERRLA, EOMI. No scleral icterus or conjunctival pallor. No lid lag or facial droop. CARDIOVASCULAR: Regular rate and rhythm. No obvious murmurs to auscultation. No chest tenderness to palpation. RESPIRATORY: No obvious rhonchi or wheezing. Clear to auscultation. Breath sounds equal bilaterally. GASTROINTESTINAL: Abdomen soft, non-tender, nondistended. BS normal. MUSCULOSKELETAL: Extremities without clubbing, cyanosis, or edema. No obvious deformities. Right foot +necrotic 2nd, 3rd toes, +foul-smelling. Pulses intact. NEUROLOGICAL: Awake, alert and oriented x4. No focal neurologic deficits. Moving both upper and lower extremities spontaneously. Laboratory Laboratory Tests Test 11/20/17 20:04 11/20/17 21:35 White Blood Count 8.0 Red Blood Count 4.13 Hemoglobin 11.9 Hematocrit 37.3 Mean Corpuscular Volume 90.4 Mean Corpuscular Hemoglobin 28.9 Mean Corpuscular Hemoglobin Concent 31.9 Red Cell Distribution Width 16.1 Platelet Count 225 Mean Platelet Volume 9.4 Neutrophils (%) (Auto) 70.1 Lymphocytes (%) (Auto) 14.7 Monocytes (%) (Auto) 12.7 Eosinophils (%) (Auto) 1.5 Basophils (%) (Auto) 1.0 Neutrophils # (Auto) 5.6 Lymphocytes # (Auto) 1.2 Monocytes # (Auto) 1.0 Eosinophils # (Auto) 0.1 Basophils # (Auto) 0.1 CBC Comment DIFF FINAL Differential Comment Blood Urea Nitrogen 35 Creatinine 6.47 Random Glucose 143 Calcium Level 8.9 Sodium Level 136 Potassium Level 4.2 Chloride Level 97 Carbon Dioxide Level 29.1 Anion Gap 10 Estimat Glomerular Filtration Rate 8 Result Diagram: 11/20/17200311/20/172134 Caprini VTE Risk Assessment Caprini VTE Risk Assessment: Mod/High Risk (score >= 2) Caprini Risk Assessment Model Point Value = 1 Point Value = 2 Point Value = 3 Point Value = 5 Age 41-60 Minor surgery BMI > 25 kg/m2 Swollen legs Varicose veins or History of unexplained or recurrent spontaneous Oral contraceptives or hormone replacement Sepsis (< 1 month) Serious lung disease, including pneumonia (< 1 month) Abnormal pulmonary function Acute myocardial infarction Congestive heart failure (< 1 month) History of inflammatory bowel disease Medical patient at bed rest Age 61-74 Arthroscopic surgery Major open surgery (> 45 min) Laparoscopic surgery (> 45 min) Malignancy Confined to bed (> 72 hours) Immobilizing plaster cast Central venous access Age >= 75 History of VTE Family history of VTE Factor V Leiden Prothrombin [id number] Lupus anticoagulant Anticardiolipin antibodies Elevated serum homocysteine Heparin-induced thrombocytopenia Other congenital or acquired thrombophilia Stroke (< 1 month) Elective arthroplasty Hip, pelvis, or leg fracture Acute spinal cord injury (< 1 month) Prophylaxis Regimen Total Risk Factor Score Risk Level Prophylaxis Regimen 0-1 Low Early ambulation 2 Moderate Order ONE of the following: *Sequential Compression Device (SCD) *Heparin 5000 units SQ BID 3-4 Higher Order ONE of the following medications: *Heparin 5000 units SQ TID *Enoxaparin/Lovenox 40 mg SQ daily (WT < 150 kg, CrCl > 30 mL/min) *Enoxaparin/Lovenox 30 mg SQ daily (WT < 150 kg, CrCl > 10-29 mL/min) *Enoxaparin/Lovenox 30 mg SQ BID (WT < 150 kg, CrCl > 30 mL/min) AND/OR *Sequential Compression Device (SCD) 5 or more Highest Order ONE of the following medications: *Heparin 5000 units SQ TID (Preferred with Epidurals) *Enoxaparin/Lovenox 40 mg SQ daily (WT < 150 kg, CrCl > 30 mL/min) *Enoxaparin/Lovenox 30 mg SQ daily (WT < 150 kg, CrCl > 10-29 mL/min) *Enoxaparin/Lovenox 30 mg SQ BID (WT < 150 kg, CrCl > 30 mL/min) AND *Sequential Compression Device (SCD) Assessment and Plan Problem List: (1) Gangrene of foot ICD Code: I96 - Gangrene, not elsewhere classified (2) ESRD (end stage renal disease) on dialysis ICD Code: N18.6 - End stage renal disease; Z99.2 - Dependence on renal dialysis Status: Chronic (3) DM (diabetes mellitus) ICD Code: E11.9 - Type 2 diabetes mellitus without complications Assessment and Plan A/P: 1. Right Foot Gangrene: necrotic right foot infection, Foot X-ray w/ no evidence of osteomyelitis, images reviewed by me. Check Blood Cultures, s/p Vanc/Zosyn in ER, continue w/ IV Abx. Follow up cultures. Consult for Vasc Sx placed for further eval, likely surgical intervention. Analgesics as needed. Wound Consult for further management. Monitor closely for progression of infection and possible sepsis. 2. ESRD on HD: M/W/, last HD on Thursday. Follow w/ Dr. Borden, will consult to resume HD and for Vanc dosing. 3. DM: Sliding scale w/ Accu-Cheks. Resume home medications. 4. DVT Prophylaxis: Heparin sq 5. Social work for d/c planning as needed. 6. Previous labs/records reviewed by me, case discussed w/ ER physician at length. Physician Certification 2 Midnight Certification Type: Admission for Inpatient Services Order for Inpatient Services The services are ordered in accordance with Medicare regulations or non- Medicare payer requirements, as applicable. In the case of services not specified as inpatient-only, they are appropriately provided as inpatient services in accordance with the 2-midnight benchmark. Estimated LOS (days): 2 days is the estimated time the patient will need to remain in the hospital, assuming treatment plan goals are met and no additional complications. Post-Hospital Plan: Not yet determined Kaitlynn Vivas MD Nov 20, 2017 22:59
[2017-11-20] MEDS ORDERED: ONDANSETRON HCL 4 MG/2 ML VIAL IVP PRN (23:00)
[2017-11-20] MEDS ORDERED: BISACODYL 10 MG SUPP RECTAL PRN (23:00)
[2017-11-20] MEDS ORDERED: MAGNESIUM HYDROXIDE SUSP 30 ML CUP PO PRN (23:00)
[2017-11-20] MEDS ORDERED: DEXTROSE 50% IN WATER 50 ML VIAL(D50) IV PUSH PRN (23:00)
[2017-11-20] MEDS ORDERED: GLUCAGON 1 MG/ML VIAL OTHER PRN (23:00)
[2017-11-20] MEDS ORDERED: ACETAMINOPHEN 325 MG TAB PO PRN (23:00)
[2017-11-20] MEDS ORDERED: LACTULOSE SYRUP 20 GM/30 ML CUP PO PRN (23:00)
[2017-11-20] MEDS ORDERED: SENNOSIDES 8.6 MG TAB PO PRN (23:00)
[2017-11-20] MEDS ORDERED: PIPERACIL-TAZO 3.375 GM PREMIX 50 ML IV ONE (23:00)
[2017-11-20] MEDS: MORPHINE SULFATE 2 MG/ML INJ IV PUSH PRN (23:27)
[2017-11-20 23:31] VITALS: BP 128/61
[2017-11-21] VITALS: BP 140/69; PULSE 78; RESP 17; TEMP 99.3; O2SAT 95
[2017-11-21] MEDS: SODIUM CHLORIDE 0.9% FLUSH 10 ML FLUSH IV FLUSH PRN ×2 (02:16→05:32)
[2017-11-21] MEDS: MORPHINE SULFATE 2 MG/ML INJ IV PUSH PRN ×4 (02:17→12:52)
[2017-11-21] MEDS: INSULIN ASPART SUPPLEMENTAL SCALE SQ SCH ×4 (07:55→21:00)
[2017-11-21 08:00] VITALS: BP 138/65; PULSE 82; RESP 17; TEMP 97.8; O2SAT 100
[2017-11-21] MEDS: DOCUSATE SODIUM 50 MG/SENNA 8.6 MG TAB PO SCH ×2 (08:23→21:13)
[2017-11-21] MEDS: HEPARIN SODIUM - SQ 10,000 UNITS/ML VIAL SQ SCH ×2 (08:24→21:14)
[2017-11-21] MEDS: METOPROLOL TARTRATE 25 MG TAB PO SCH ×2 (08:24→21:00)
[2017-11-21] MEDS: CLOPIDOGREL 75 MG TAB PO SCH (08:24)
[2017-11-21] MEDS: ASPIRIN 81 MG CHEW TAB PO SCH (08:24)
[2017-11-21] MEDS: FOLIC ACID 1 MG TAB PO SCH (08:24)
[2017-11-21] MEDS: HYDROXYCHLOROQUINE SULFATE 200 MG TAB PO SCH (08:24)
[2017-11-21] MEDS: GABAPENTIN 100 MG CAP PO SCH ×3 (08:24→16:48)
[2017-11-21] MEDS: CEFEPIME INJ 1,000 MG in SODIUM CHLORIDE 0.9% INJ 100 ML IV SCH (08:24)
[2017-11-21] MEDS: SODIUM CHLORIDE 0.9% FLUSH 10 ML FLUSH IV FLUSH SCH ×2 (08:25→21:13)
--- NOTE | 2017-11-21 08:26 | PD.VS.CON ---
History of Present Illness Chief Complaint: R foot and L finger tissue loss Consult Requested by: Medical svc History of Present Illness 57 yo female with CAD and ESRD who presents with 1 week of R foot pain and drainage. No fevers. Also has L 4th digit pain. Both R foot and L hand keep her up at night. No motor dysfunction but pain limits ambulation on foot. Past/Family/Social History Past Medical History ESRD x 10 y; MWF via L UE AVF PAD CAD s/p coronary stents earlier this year DM HTN CHF (35%) Past Surgical History L UE AVF 10 y ago [place] C section Social History , just put in facility because of what she terms dementia Family History CAD COPD ESRD Home Medications Active Scripts Aspirin (Aspirin Low Strength) 81 Mg Chew, 162 MG PO DAILY, #30 EA Prov:Kandis Montez MD R3 06/18/17 Nitroglycerin SL (Nitrostat SL) 0.4 Mg Subl, 0.4 MG SL UNSCH Y for CHEST PAIN, # 30 TAB Prov:Kandis Montez MD R3 06/18/17 Clopidogrel (Plavix) 75 Mg Tab, 75 MG PO DAILY, #30 TAB 11 Refills Prov:Kandis Montez MD R3 06/18/17 Reported Medications Mv-Mn/Folic AC/Alip Acid/Coq10 (Diabetic Vitamin Capsule) 800 Mcg-150 Mg-50 Mg Capsule, 1 TAB PO DAILY 11/20/17 Metoprolol Tartrate (Metoprolol Tartrate) 25 Mg Tab, 25 MG PO BID, #60 TAB 0 Refills 11/20/17 Linagliptin (Tradjenta) 5 Mg Tab, 5 MG PO DAILY for Blood Sugar Management, #30 TAB 0 Refills 07/01/17 Cinacalcet (Sensipar) 30 Mg Tab, 60 MG PO BID, #60 TAB 0 Refills 07/01/17 Doxazosin (Doxazosin) 2 Mg Tab, 2 MG PO HS, #30 TAB 0 Refills 07/01/17 Folic Acid (Folic Acid) 1 Mg Tablet, 1 MG PO DAILY 07/01/17 Hydroxychloroquine (Hydroxychloroquine) 200 Mg Tab, 200 MG PO DAILY, #30 TAB 0 Refills Takw with food 07/01/17 Gabapentin (Gabapentin) 100 Mg Cap, 100 MG PO TID, #90 CAP 0 Refills 07/01/17 Discontinued Scripts Sulfamethoxazole-Trimethoprim (Bactrim DS) 800-160 Mg Tab, 1 TAB PO BID for Infection, #14 TAB 0 Refills Prov:Danish Stevenson MD 11/03/17 Acetaminophen (Tylenol) 325 Mg Tab, 650 MG PO Q8HR Y for PAIN SCALE 1 TO 10, # 12 TAB 0 Refills Prov:Danish Stevenson MD 11/03/17 Metoprolol Tartrate (Metoprolol Tartrate) 25 Mg Tab, 25 MG PO Q8HR, #30 TAB Prov:Kandis Montez MD R3 06/18/17 Coded Allergies: latex (Unverified Allergy, Severe, 11/20/17) RASH Review of Systems Cardiovascular: DENIES: Chest pain, Claudication Musculoskeletal: COMPLAINS OF: Joint Swelling Physical Exam Vitals/I&O Date Time Temp Pulse Resp B/P (MAP) Pulse Ox O2 Delivery O2 Flow Rate FiO2 11/21/17 00:00 99.3 78 17 140/69 (92) 95 11/20/17 23:31 85 16 128/61 (83) 97 11/20/17 22:45 87 16 163/78 (106) 97 Room Air 11/20/17 19:56 99.7 89 16 164/77 (106) 96 Room Air 11/20/17 19:53 16 96 Room Air 11/20/17 19:32 100.2 90 18 160/72 (101) 93 Room Air 11/21/17 11/21/17 11/21/17 07:00 15:00 23:00 Intake Total 290 ml Balance 290 ml Neuro: alert, oriented, no distress HEENT: NC/AT; wears glasses; anicteric sclera Neck: no JVD; trachea midline Heart: reg rate, no M Lungs: clear B Abdomen: NT Vascular: no palpable femoral pulse R LE and no pedal pulses L UE with + thrill and no radial/ulnar pulses Extremities: R foot with dry gangrene mostly around 3 but no drainage L 4th digit with gangrene at tip Good hand strength Laboratory Tests Test 11/20/17 20:04 11/20/17 21:35 White Blood Count 8.0 Red Blood Count 4.13 Hemoglobin 11.9 Hematocrit 37.3 Mean Corpuscular Volume 90.4 Mean Corpuscular Hemoglobin 28.9 Mean Corpuscular Hemoglobin Concent 31.9 Red Cell Distribution Width 16.1 Platelet Count 225 Mean Platelet Volume 9.4 Neutrophils (%) (Auto) 70.1 Lymphocytes (%) (Auto) 14.7 Monocytes (%) (Auto) 12.7 Eosinophils (%) (Auto) 1.5 Basophils (%) (Auto) 1.0 Neutrophils # (Auto) 5.6 Lymphocytes # (Auto) 1.2 Monocytes # (Auto) 1.0 Eosinophils # (Auto) 0.1 Basophils # (Auto) 0.1 CBC Comment DIFF FINAL Differential Comment Blood Urea Nitrogen 35 Creatinine 6.47 Random Glucose 143 Calcium Level 8.9 Sodium Level 136 Potassium Level 4.2 Chloride Level 97 Carbon Dioxide Level 29.1 Anion Gap 10 Estimat Glomerular Filtration Rate 8 Date/Time Source Procedure Growth Status 11/20/17 22:55 Blood Peripheral Aerobic Blood Culture Pending Received 11/20/17 22:55 Blood Peripheral Anaerobic Blood Culture Pending Received Last 48 hours Impressions Chest X-Ray 11/20/172101 Signed Impressions: Service Date/Time: Monday, November 20, 2017 21:18 - CONCLUSION: Stable appearance with no acute cardiopulmonary disease. Baudilio Schuster MD Foot X-Ray 11/20/172032 Signed Impressions: Service Date/Time: Monday, November 20, 2017 20:44 - CONCLUSION: 1. Eopenia and osteophytic change. 2. No evidence to suggest osteomyelitis. Baudilio Schuster MD Assessment and Plan Plan She has complicated vascular issues that are essentially two 1. R LE tissue loss: I don't feel great femoral pulses and suspect aortoiliac disease. Will get CTA A/P with runoff and likely to need angiogram, which I'll tentatively schedule for Thursday. Will get ABIs 2. L UE tissue loss that is likely access-related hand ischemia. With angiogram on Thursday, will also assess aortic arch and arterial inflow to L UE. Pt likely to need DRIL (Distal Bypass, Interval ligation) to augment hand perfusion and maintain excellent AVF created 10 years ago LE vein survey for conduit for DRIL 3. CV risk factor modification: ASA, statin 4. Wound care and PT. Don Ramirez MD FACS [employer] consumer loan underwriter [facility] - Heart and Vascular Surgery at [facility] [phone] Don Ramirez MD Nov 21, 2017 08:26
--- NOTE | 2017-11-21 09:28 | RADRPT ---
EXAM DATE/TIME: 11/21/2017 08:32 [facility] COMPARISON: No previous studies available for comparison. INDICATIONS : Pre cardiac surgery. MEDICAL HISTORY : Hypertension. Hepatitis C. Congestive heart failure. Angina. CAD. Renal failure. Arthritis. Diabetes. SURGICAL HISTORY : Hysterectomy. section. Coronary artery stent.Angioplasty. Dialysis. AV fistula, left arm. ENCOUNTER: Initial ACUITY: 1 day PAIN SCORE: 1/10 LOCATION: Bilateral legs. TECHNIQUE: Venous ultrasound of the left and right leg was performed from the inguinal ligament to the proximal calf. Real-time, color Doppler and spectral tracing, compression and augmentation techniques were us ed. FINDINGS: RIGHT LEG: There is normal compressibility of the deep venous system from the inguinal region to the proximal ca lf. No echogenic clot is seen in the lumen of the common femoral, femoral, popliteal, and posterior tibial veins. There is a normal response of the venous system to proximal and distal augmentation an d respiration. LEFT LEG: There is normal compressibility of the deep venous system from the inguinal region to the proximal ca lf. No echogenic clot is seen in the lumen of the common femoral, femoral, popliteal, and posterior tibial veins. There is a normal response of the venous system to proximal and distal augmentation an d respiration. CONCLUSION: No DVT. Martin Deleon MD on November 21, 2017 at 9:26 Board Certified Radiologist. This report was verified electronically.
--- NOTE | 2017-11-21 09:28 | RADRPT ---
EXAM DATE/TIME: 11/21/2017 08:38 [facility] COMPARISON: No previous studies available for comparison. INDICATIONS : Pre cardiac surgery. MEDICAL HISTORY : Congestive heart failure. Hepatitis C. Hypertension. Angina. CAD. Renal failure. Arthritis. Diabetes. SURGICAL HISTORY : Coronary artery stent. Hysterectomy. section. Angioplasty. Dialysis. AV fistula, left arm. ENCOUNTER: Initial ACUITY: 1 day PAIN SCORE: 1/10 LOCATION: Bilateral legs. GREATER SAPHENOUS VEIN THIGH: PROXIMAL: Right 5 mm Left 4 mm MID: Right 5 mm Left 3 mm DISTAL: Right 6 mm Left Non-visualized CALF: PROXIMAL: Right 3 mm Left 2 mm MID: Right 2 mm Left 3 mm DISTAL: Right 2 mm Left 2 mm FINDINGS: The venous system of the lower extremities are patent by color Doppler imaging. Measurements of the leg veins (in mm) are listed above. CONCLUSION: Venous mapping as delineated above. Martin Deleon MD on November 21, 2017 at 9:26 Board Certified Radiologist. This report was verified electronically.
[2017-11-21] MEDS ORDERED: SODIUM CHLOR 0.9% 1000 ML INJ 1,000 ML OTHER PRN ×2 (09:38)
[2017-11-21] MEDS ORDERED: SODIUM CHLOR 0.9% 1000 ML INJ 1,000 ML IV PRN (09:38)
--- NOTE | 2017-11-21 09:38 | PD.CONS ---
HPI Service Nephrology Consult Requested By Reason for Consult ESRD Primary Care Physician Unknown History of Present Illness Ms. Tavares is a 57 year old with history of ESRD on HD MWF. She has been admitted with right foot pain. Appears to have necrotic/gangrenous changes. Seen by vascular surgery, angiogram is planned for Thursday. She has past medical history of CAD, OR, CHF, PAD, DM 2, Hypertension, anemia and ESRD. Historically has had very high phosphorus levels. At one point she was suspected to have Calciphylaxis. Review of Systems Constitutional: COMPLAINS OF: Fatigue, DENIES: Fever Cardiovascular: DENIES: Chest pain, Palpitations Gastrointestinal: DENIES: Abdominal pain, Black stools, Bloody stools Neurologic: DENIES: Headache Psychiatric: DENIES: Confusion, Agitation Past Family Social History Allergies: Coded Allergies: latex (Unverified Allergy, Severe, 11/20/17) RASH Past Medical History CAD CHF Hypertension Diabetes mellitus type 2 PAD ESRD Reported Medications Aspirin Low Strength (Aspirin) 81 Mg Chew 162 Mg PO DAILY Nitrostat SL (Nitroglycerin) 0.4 Mg Subl 0.4 Mg SL UNSCH PRN Plavix (Clopidogrel Bisulfate) 75 Mg Tab 75 Mg PO DAILY Reported Diabetic Vitamin Capsule (Mv-Mn/Folic AC/Alip Acid/Coq10) 800 Mcg-150 Mg-50 Mg Capsule 1 Tab PO DAILY Metoprolol Tartrate 25 Mg Tab 25 Mg PO BID Tradjenta (Linagliptin) 5 Mg Tab 5 Mg PO DAILY Sensipar (Cinacalcet) 30 Mg Tab 60 Mg PO BID Doxazosin (Doxazosin Mesylate) 2 Mg Tab 2 Mg PO HS Folic Acid 1 Mg Tablet 1 Mg PO DAILY Hydroxychloroquine (Hydroxychloroquine Sulfate) 200 Mg Tab 200 Mg PO DAILY Takw with food Gabapentin 100 Mg Cap 100 Mg PO TID Active Ordered Medications Current Medications Medications (Trade) Dose Ordered Sig/Diamond Route Start Time Stop Time Status Last Admin (D50w (Vial) Inj) 50 ml UNSCH PRN IV PUSH 11/20/17 23:00 (Glucagon Inj) 1 mg UNSCH PRN OTHER 11/20/17 23:00 (NovoLOG SUPPLEMENTAL SCALE) 1 ACHS SLIDING SCALE SQ 11/21/17 08:00 Cefepime HCl 1000 mg/Sodium Chloride 100 ml @ 200 mls/hr Q24H IV 11/21/17 09:00 11/21/17 08:24 (NS Flush) 2 ml UNSCH PRN IV FLUSH 11/20/17 23:00 11/21/17 05:32 (NS Flush) 2 ml BID IV FLUSH 11/21/17 09:00 11/21/17 08:25 (Zofran Inj) 4 mg Q6H PRN IVP 11/20/17 23:00 (Tylenol) 650 mg Q6H PRN PO 11/20/17 23:00 ([place] 5-325 Mg) 1 tab Q4H PRN PO 11/20/17 23:00 (Morphine Inj) 2 mg Q3H PRN IV PUSH 11/20/17 23:00 11/21/17 08:25 (Elsy-Colace) 1 tab BID PO 11/21/17 09:00 (Milk Of Magnesia Liq) 30 ml Q12H PRN PO 11/20/17 23:00 (Senokot) 17.2 mg Q12H PRN PO 11/20/17 23:00 (Dulcolax Supp) 10 mg DAILY PRN RECTAL 11/20/17 23:00 (Lactulose Liq) 30 ml DAILY PRN PO 11/20/17 23:00 (Aspirin Chew) 162 mg DAILY PO 11/21/17 09:00 11/21/17 08:24 (Plavix) 75 mg DAILY PO 11/21/17 09:00 11/21/17 08:24 (Cardura) 2 mg HS PO 11/21/17 21:00 (Folate) 1 mg DAILY PO 11/21/17 09:00 11/21/17 08:24 (Neurontin) 100 mg TID PO 11/21/17 09:00 11/21/17 08:24 (Plaquenil) 200 mg DAILY PO 11/21/17 09:00 11/21/17 08:24 (Lopressor) 25 mg BID PO 11/21/17 09:00 11/21/17 08:24 (Heparin Inj) 5,000 units Q12HR SQ 11/21/17 09:00 11/21/17 08:24 Family History reviewed, non contributory Social History no active tobacco or ETOH Physical Exam Vital Signs Vital Signs Date Time Temp Pulse Resp B/P (MAP) Pulse Ox O2 Delivery O2 Flow Rate FiO2 11/21/17 08:00 97.8 82 17 138/65 (89) 100 11/21/17 00:00 99.3 78 17 140/69 (92) 95 11/20/17 23:31 85 16 128/61 (83) 97 11/20/17 22:45 87 16 163/78 (106) 97 Room Air 11/20/17 19:56 99.7 89 16 164/77 (106) 96 Room Air 11/20/17 19:53 16 96 Room Air 11/20/17 19:32 100.2 90 18 160/72 (101) 93 Room Air Physical Exam GENERAL: awake, alert. SKIN: Warm and dry. HEAD: Normocephalic. EYES: No scleral icterus. No injection or drainage. NECK: Supple, trachea midline. No JVD or lymphadenopathy. CARDIOVASCULAR: Regular rate and rhythm without murmurs, gallops, or rubs. RESPIRATORY: Breath sounds equal bilaterally. No accessory muscle use. GASTROINTESTINAL: Abdomen soft, non-tender, nondistended. MUSCULOSKELETAL: No cyanosis, or edema. BACK: Nontender without obvious deformity. No CVA tenderness. Laboratory Laboratory Tests Test 11/20/17 20:04 11/20/17 21:35 White Blood Count 8.0 Red Blood Count 4.13 Hemoglobin 11.9 Hematocrit 37.3 Mean Corpuscular Volume 90.4 Mean Corpuscular Hemoglobin 28.9 Mean Corpuscular Hemoglobin Concent 31.9 Red Cell Distribution Width 16.1 Platelet Count 225 Mean Platelet Volume 9.4 Neutrophils (%) (Auto) 70.1 Lymphocytes (%) (Auto) 14.7 Monocytes (%) (Auto) 12.7 Eosinophils (%) (Auto) 1.5 Basophils (%) (Auto) 1.0 Neutrophils # (Auto) 5.6 Lymphocytes # (Auto) 1.2 Monocytes # (Auto) 1.0 Eosinophils # (Auto) 0.1 Basophils # (Auto) 0.1 CBC Comment DIFF FINAL Differential Comment Blood Urea Nitrogen 35 Creatinine 6.47 Random Glucose 143 Calcium Level 8.9 Sodium Level 136 Potassium Level 4.2 Chloride Level 97 Carbon Dioxide Level 29.1 Anion Gap 10 Estimat Glomerular Filtration Rate 8 Date/Time Source Procedure Growth Status 11/20/17 22:55 Blood Peripheral Aerobic Blood Culture Pending Received 11/20/17 22:55 Blood Peripheral Anaerobic Blood Culture Pending Received Result Diagram: 11/20/17200311/20/172134 Assessment and Plan Problem List: (1) ESRD (end stage renal disease) on dialysis ICD Codes: N18.6 - End stage renal disease; Z99.2 - Dependence on renal dialysis Status: Chronic Plan: Dialysis will be MWF, may dialyze her tomorrow because of holiday schedule. Avoid Gadolinium. Monitor fluid and electrolytes. High protein diet. (2) DM (diabetes mellitus) ICD Codes: E11.9 - Type 2 diabetes mellitus without complications Plan: insulin coverage. (3) Metabolic bone disease ICD Codes: E88.9 - Metabolic disorder, unspecified; M90.80 - Osteopathy in diseases classified elsewhere, unspecified site Status: Acute Plan: Obtain phosphorus level intermittently and use binders with meals as appropriate. (4) Gangrene of foot ICD Codes: I96 - Gangrene, not elsewhere classified Plan: Wound care, Vascular surgery on the case. Consider podiatry evaluation as well. (5) Anemia of renal disease ICD Codes: D63.1 - Anemia in chronic kidney disease Plan: hemoglobin is currently acceptable, monitor. Epogen as needed. Nazario Ahumada MD Nov 21, 2017 09:38
[2017-11-21] MEDS ORDERED: diphenhydrAMINE HCL 25 MG CAP PO PRN (09:45)
[2017-11-21] MEDS ORDERED: NITROGLYCERIN 0.4 MG SL 25 TABS/BTL SL PRN (09:45)
[2017-11-21] MEDS ORDERED: ACETAMINOPHEN 325 MG TAB PO PRN (09:45)
[2017-11-21] MEDS ORDERED: cloNIDine HCL 0.1 MG TAB PO PRN (09:45)
[2017-11-21] MEDS ORDERED: HEPARIN SODIUM - IV 10,000 UNITS/10 ML VIAL IV FLUSH PRN (09:45)
[2017-11-21] MEDS ORDERED: ONDANSETRON HCL 4 MG/2 ML VIAL IV PUSH PRN (09:45)
[2017-11-21] MEDS ORDERED: GENTAMICIN SULFATE (DIALYSIS USE ONLY) 20 MG/2 ML VIAL OTHER PRN (09:45)
[2017-11-21] MEDS ORDERED: HEPARIN SODIUM - IV 10,000 UNITS/10 ML VIAL PRN (09:45)
[2017-11-21] MEDS ORDERED: MANNITOL 12.5 GM/50 ML VIAL IV PRN (09:45)
[2017-11-21] MEDS ORDERED: SODIUM CHLORIDE 0.9% FLUSH 10 ML FLUSH IV FLUSH PRN (09:45)
--- NOTE | 2017-11-21 11:04 | HHI.PR ---
Subjective Remarks Pt complaining of right foot and left hand pain. States she spoke w vasc sx. no nausea or vomiting no chest pain or sob. Objective Vitals Vital Signs Date Time Temp Pulse Resp B/P (MAP) Pulse Ox O2 Delivery O2 Flow Rate FiO2 11/21/17 08:00 97.8 82 17 138/65 (89) 100 11/21/17 00:00 99.3 78 17 140/69 (92) 95 11/20/17 23:31 85 16 128/61 (83) 97 11/20/17 22:45 87 16 163/78 (106) 97 Room Air 11/20/17 19:56 99.7 89 16 164/77 (106) 96 Room Air 11/20/17 19:53 16 96 Room Air 11/20/17 19:32 100.2 90 18 160/72 (101) 93 Room Air I/O 11/20/17 11/20/17 11/20/17 11/21/17 11/21/17 11/21/17 07:00 15:00 23:00 07:00 15:00 23:00 Intake Total 290 ml Balance 290 ml Intake Oral 240 ml IV Total 50 ml # Voids 2 Result Diagram: 11/20/17200311/20/172134 Imaging Last Impressions Lower Extremity Ultrasound 11/21/17 0000 Signed Impressions: Service Date/Time: Tuesday, November 21, 2017 08:32 - CONCLUSION: No DVT. Martin Deleon MD Chest X-Ray 11/20/172101 Signed Impressions: Service Date/Time: Monday, November 20, 2017 21:18 - CONCLUSION: Stable appearance with no acute cardiopulmonary disease. Baudilio Schuster MD Foot X-Ray 11/20/172032 Signed Impressions: Service Date/Time: Monday, November 20, 2017 20:44 - CONCLUSION: 1. Eopenia and osteophytic change. 2. No evidence to suggest osteomyelitis. Baudilio Schuster MD Objective Remarks GENERAL: Middle-aged female, pleasant HEENT: EOMI. CARDIOVASCULAR: Regular rate and rhythm. No obvious murmurs to auscultation. RESPIRATORY: No obvious wheezing. Clear to auscultation. Breath sounds equal bilaterally. GASTROINTESTINAL: Abdomen soft, non-tender, nondistended. BS normal. MUSCULOSKELETAL: Right foot +necrotic 2nd, 3rd toes, +foul-smelling. left hand w ulcer on the left 4th digit, tender to touch NEUROLOGICAL: alert and oriented. Moving both upper and lower extremities spontaneously. A/P Problem List: (1) Gangrene of foot ICD Code: I96 - Gangrene, not elsewhere classified (2) ESRD (end stage renal disease) on dialysis ICD Code: N18.6 - End stage renal disease; Z99.2 - Dependence on renal dialysis Status: Chronic (3) DM (diabetes mellitus) ICD Code: E11.9 - Type 2 diabetes mellitus without complications Assessment and Plan 1. Right Foot and left 4th finger Gangrene: necrotic right foot infection, Foot X-ray w/ no evidence of osteomyelitis. Blood Cultures pending, s/p Vanc/ Zosyn in ER, now on cefepime IV. Follow up cultures. Vasc Sx evaluated the pt and has ordered CTA A/P w runoff. Pt tentatively scheduled for Thursday for angiogram of both aortic arch and arterial inflow to the L UE and RLE. also ordered ABIs. Analgesics as needed. Wound Consult for further management. Monitor closely for progression of infection and possible sepsis. 2. ESRD on HD: M/W/F, last HD on Thursday. Follow w/ Dr. Borden, nephrology following. 3. DM: Sliding scale w/ Accu-Cheks. Resume home medications. 4. DVT Prophylaxis: Heparin sq 5. case mgt for d/c planning as needed. Discharge Planning vasc sx workup in progress. tentatively scheduled for angiogram on thursday Vy Kim MD Nov 21, 2017 11:04
[2017-11-21 12:00] VITALS: BP 111/55; PULSE 65; RESP 16; TEMP 97.6; O2SAT 96
[2017-11-21 14:42] LABS: AUTOMATED NEUTROPHIL # 4.1 TH/MM3 (1.8-7.7); BASOPHIL # 0.1 TH/MM3 (0-0.2); BASOPHIL % 1.1 % (0.0-2.0); EOSINOPHIL # 0.3 TH/MM3 (0-0.4); EOSINOPHIL % 4.1 % (0.0-4.0); HEMATOCRIT 34.7 % (35.0-46.0); HEMOGLOBIN 10.8 GM/DL (11.6-15.3); LYMPH % 17.9 % (9.0-44.0); LYMPHOCYTE # 1.2 TH/MM3 (1.0-4.8); MEAN CELL VOLUME 91.8 FL (80.0-100.0); MEAN CORPUSCULAR HEMOGLOBIN 28.6 PG (27.0-34.0); MEAN CORPUSCULAR HGB CONC 31.2 % (32.0-36.0); MEAN PLATELET VOLUME 8.9 FL (7.0-11.0); MONO % 16.2 % (0.0-8.0); MONOCYTE # 1.1 TH/MM3 (0-0.9); NEUT % 60.7 % (16.0-70.0); PLATELET COUNT 201 TH/MM3 (150-450); RED BLOOD COUNT 3.78 MIL/MM3 (4.00-5.30); RED CELL DISTRIBUTION WIDTH 15.9 % (11.6-17.2); WHITE BLOOD COUNT 6.8 TH/MM3 (4.0-11.0)
[2017-11-21 15:15] LABS: ALBUMIN 2.5 GM/DL (3.4-5.0); ALKALINE PHOSPHATASE 121 U/L (45-117); ALT (GPT) 27 U/L (10-53); AST (GOT) 27 U/L (15-37); BICARBONATE 26.9 MEQ/L (21.0-32.0); BLOOD UREA NITROGEN 40 MG/DL (7-18); CALCIUM 9.2 MG/DL (8.5-10.1); CHLORIDE 99 MEQ/L (98-107); CREATININE 7.64 MG/DL (0.50-1.00); GLOMERULAR FILTRATION RATE 7 ML/MIN (>89); GLUCOSE,RANDOM 161 MG/DL (74-106); SODIUM (NA) 138 MEQ/L (136-145); TOTAL BILIRUBIN ADULT 0.4 MG/DL (0.2-1.0); TOTAL PROTEIN 7.8 GM/DL (6.4-8.2)
[2017-11-21 16:00] VITALS: BP 135/60; PULSE 89; RESP 18; TEMP 98; O2SAT 92
[2017-11-21] MEDS: ACETAMINOPHEN/HYDROcodone 325 MG/10 MG TAB PO PRN ×2 (16:48→21:25)
--- NOTE | 2017-11-21 17:00 | RADRPT ---
EXAM DATE/TIME: 11/21/2017 00:00 [facility] COMPARISON: No previous studies available for comparison. INDICATIONS : Gangrene, Right Foot Wound TECHNIQUE: Four-cuff ankle and brachial pressures were obtained. Pulse cuff waveform tracings of the ankles were recorded, and ankle-brachial indices were calculated. PRESSURES (mmHg): Brachial (arm): Right 141 Left IV SITE Ankle: Right CNO Left CNO COOKIE: Right 0.00 Left 0.00 TBI: Right 0.00 Left 0.24 CONCLUSION: Very limited evaluation basically nondiagnostic as measurements could not be performed. María Elena Hdez MD on November 21, 2017 at 16:57 Board Certified Radiologist. This report was verified electronically.
[2017-11-21 20:00] VITALS: BP 97/52; PULSE 70; RESP 18; TEMP 98.5; O2SAT 92
[2017-11-21] MEDS: DOXAZOSIN MESYLATE 2 MG TAB PO SCH (21:13)
[2017-11-22] VITALS: BP 95/52; PULSE 67; RESP 18; TEMP 97.9; O2SAT 91
[2017-11-22] MEDS: ACETAMINOPHEN/HYDROcodone 325 MG/10 MG TAB PO PRN ×5 (01:40→23:11)
[2017-11-22 08:00] VITALS: BP 101/58; PULSE 66; RESP 17; TEMP 98; O2SAT 96
[2017-11-22] MEDS: INSULIN ASPART SUPPLEMENTAL SCALE SQ SCH ×4 (08:00→20:59)
[2017-11-22] MEDS: MORPHINE SULFATE 2 MG/ML INJ IV PUSH PRN ×3 (08:46→20:58)
[2017-11-22] MEDS: SODIUM CHLORIDE 0.9% FLUSH 10 ML FLUSH IV FLUSH SCH ×2 (08:47→21:00)
[2017-11-22] MEDS: FOLIC ACID 1 MG TAB PO SCH (08:48)
[2017-11-22] MEDS: ASPIRIN 81 MG CHEW TAB PO SCH (08:49)
[2017-11-22] MEDS: CLOPIDOGREL 75 MG TAB PO SCH (08:49)
[2017-11-22] MEDS: HYDROXYCHLOROQUINE SULFATE 200 MG TAB PO SCH (08:49)
[2017-11-22] MEDS: GABAPENTIN 100 MG CAP PO SCH ×3 (08:49→17:44)
[2017-11-22] MEDS: DOCUSATE SODIUM 50 MG/SENNA 8.6 MG TAB PO SCH ×3 (08:49→20:59)
[2017-11-22] MEDS: HEPARIN SODIUM - SQ 10,000 UNITS/ML VIAL SQ SCH ×2 (08:50→20:59)
[2017-11-22] MEDS: CEFEPIME INJ 1,000 MG in SODIUM CHLORIDE 0.9% INJ 100 ML IV SCH (08:50)
[2017-11-22 08:55] LABS: BICARBONATE 24.9 MEQ/L (21.0-32.0); CALCIUM 8.3 MG/DL (8.5-10.1); CREATININE 9.42 MG/DL (0.50-1.00); MAGNESIUM 2.5 MG/DL (1.5-2.5)
[2017-11-22] MEDS: METOPROLOL TARTRATE 25 MG TAB PO SCH ×2 (08:56→20:59)
[2017-11-22 09:17] LABS: PHOSPHORUS 8.1 MG/DL (2.5-4.9)
--- NOTE | 2017-11-22 10:09 | HHI.NPPN ---
Subjective Interval History patient was seen and examined. Dialysis today. Review of Systems General Constitutional: Fatigue Objective Data Data Vital Signs Date Time Temp Pulse Resp B/P (MAP) Pulse Ox O2 Delivery O2 Flow Rate FiO2 11/22/17 08:57 18 11/22/17 08:30 18 11/22/17 08:00 98.0 66 17 101/58 (72) 96 11/22/17 00:00 97.9 67 18 95/52 (66) 91 11/21/17 20:00 98.5 70 18 97/52 (67) 92 11/21/17 16:00 98.0 89 18 135/60 (85) 92 11/21/17 12:00 97.6 65 16 111/55 (73) 96 -: 11/21/17 1351 11/22/17 0610 Physical Exam General Appearance: Well Developed, No Acute Distress, Malnourished Eyes Eye Exam: Pupils Equal Throat Throat Exam: Oral Mucosa [place] & Moist Neck Neck Exam: Neck Supple Pulmonary Resp Exam: Clear Bilaterally, Breath Sounds Equal Cardiology CV Exam: Regular, Normal Sinus Rhythm Gastrointestinal/Abdomen GI Exam: Soft, Non-Tender Extremeties Extremities Exam: No Edema Extremeties Remarks chronic ischemic changes. Wound on the right foot. Assessment/Plan Problem List: (1) ESRD (end stage renal disease) on dialysis ICD Codes: N18.6 - End stage renal disease; Z99.2 - Dependence on renal dialysis Status: Chronic Plan: Dialysis will be MWF,dialysis today due to holiday schedule. Avoid Gadolinium. Monitor fluid and electrolytes. High protein diet. (2) DM (diabetes mellitus) ICD Codes: E11.9 - Type 2 diabetes mellitus without complications Plan: insulin coverage. (3) Metabolic bone disease ICD Codes: E88.9 - Metabolic disorder, unspecified; M90.80 - Osteopathy in diseases classified elsewhere, unspecified site Status: Acute Plan: Changed diet to high protein, low phosphorus diet. Ordered Renvela, her serum phosphorus is high. (4) Gangrene of foot ICD Codes: I96 - Gangrene, not elsewhere classified Plan: Wound care, Vascular surgery on the case. Consider podiatry evaluation as well. (5) Anemia of renal disease ICD Codes: D63.1 - Anemia in chronic kidney disease Plan: hemoglobin is currently acceptable, monitor. Epogen as needed. Nazario Ahumada MD Nov 22, 2017 10:09
[2017-11-22] MEDS: EPOETIN ALFA 10,000 UNITS/ML VIAL IV PUSH PRN (12:00)
--- NOTE | 2017-11-22 12:02 | HHI.PR ---
Subjective Remarks Pt complaining of pain in hand and leg. Currently getting dialysis. Per HD RN pt just got a norco No nausea or vomiting now but did have some nausea last night Objective Vitals Vital Signs Date Time Temp Pulse Resp B/P (MAP) Pulse Ox O2 Delivery O2 Flow Rate FiO2 11/22/17 08:57 18 11/22/17 08:30 18 11/22/17 08:00 98.0 66 17 101/58 (72) 96 11/22/17 00:00 97.9 67 18 95/52 (66) 91 11/21/17 20:00 98.5 70 18 97/52 (67) 92 11/21/17 16:00 98.0 89 18 135/60 (85) 92 11/21/17 12:00 97.6 65 16 111/55 (73) 96 I/O 11/21/17 11/21/17 11/21/17 11/22/17 11/22/17 11/22/17 06:59 14:59 22:59 06:59 14:59 22:59 Intake Total 290 ml 480 ml 720 ml Output Total 0 ml Balance 290 ml 480 ml 720 ml Intake Oral 240 ml 480 ml 720 ml IV Total 50 ml Output Urine Total 0 ml # Voids 2 0 0 # Bowel Movements 0 0 Result Diagram: 11/21/17 1351 11/22/17 0610 Imaging Last Impressions Lower Extremity Ultrasound 11/21/17 0000 Signed Impressions: Service Date/Time: Tuesday, November 21, 2017 08:32 - CONCLUSION: No DVT. Martin Deleon MD Chest X-Ray 11/20/172101 Signed Impressions: Service Date/Time: Monday, November 20, 2017 21:18 - CONCLUSION: Stable appearance with no acute cardiopulmonary disease. Baudilio Schuster MD Foot X-Ray 11/20/172032 Signed Impressions: Service Date/Time: Monday, November 20, 2017 20:44 - CONCLUSION: 1. Eopenia and osteophytic change. 2. No evidence to suggest osteomyelitis. Baudilio Schuster MD Objective Remarks GENERAL: Middle-aged female, getting HD HEENT: EOMI. CARDIOVASCULAR: Regular rate and rhythm. No obvious murmurs to auscultation. RESPIRATORY: No obvious wheezing. Clear to auscultation. Breath sounds equal bilaterally. GASTROINTESTINAL: Abdomen soft, non-tender, nondistended. BS normal. MUSCULOSKELETAL: Right foot +necrotic 2nd, 3rd toes, +foul-smelling. left hand w necrosis on the left 4th digit, tender to touch NEUROLOGICAL: alert and oriented. Moving both upper and lower extremities spontaneously. A/P Problem List: (1) Gangrene of foot ICD Code: I96 - Gangrene, not elsewhere classified (2) ESRD (end stage renal disease) on dialysis ICD Code: N18.6 - End stage renal disease; Z99.2 - Dependence on renal dialysis Status: Chronic (3) DM (diabetes mellitus) ICD Code: E11.9 - Type 2 diabetes mellitus without complications Assessment and Plan 1. Right Foot and left 4th finger Gangrene: necrotic right foot infection, Foot X-ray w/ no evidence of osteomyelitis. Blood Cultures neg x 2 days, s/p Vanc/Zosyn in ER, now on cefepime IV. Vas Sx evaluated the pt and has ordered CTA A/P w runoff. Pt tentatively scheduled for Thursday for angiogram of both aortic arch and arterial inflow to the L UE and RLE. also ordered ABIs. Analgesics as needed. Wound Consult for further management. Monitor closely for progression of infection and possible sepsis. 2. ESRD on HD: M/W/F, but getting HD today due to holiday. Follow w/ Dr. Borden, Nephrology following. 3. DM: Sliding scale w/ Accu-Cheks. 4. DVT Prophylaxis: Heparin sq 5. case mgt for d/c planning as needed. Discharge Planning vasc sx workup in progress. tentatively scheduled for angiogram on thursday Vy Kim MD Nov 22, 2017 12:02
[2017-11-22] MEDS: GELATIN 12 MM/7 MM FOAM TOP PRN (12:10)
[2017-11-22] MEDS: SEVELAMER CARBONATE 800 MG TAB PO SCH ×2 (13:28→17:00)
--- NOTE | 2017-11-22 13:36 | EKG ---
Date Performed: 11/20/2017 Time Performed: 21:33:27 PTAGE: 57 years EKG: Sinus rhythm LEFT VENTRICULAR HYPERTROPHY AND ST-T CHANGE INFERIOR MYOCARDIAL INFARCTION POSSIBLE ANTEROSEPTAL MY OCARDIAL INFARCTION ST-T wave abnormalities from the prior tracing have resolved ABNORMAL ECG PREVIOUS TRACING : 06/18/2017 04.32 DOCTOR: Eamon Lara Interpretating Date/Time 11/22/2017 13:35:14
[2017-11-22 16:00] VITALS: BP 124/62; PULSE 79; RESP 18; TEMP 98.1; O2SAT 92
[2017-11-22 17:51] VITALS: O2SAT 92
[2017-11-22 20:00] VITALS: BP 100/57; PULSE 89; RESP 20; TEMP 99.2; O2SAT 100
[2017-11-22] MEDS: DOXAZOSIN MESYLATE 2 MG TAB PO SCH ×2 (20:56→21:00)
[2017-11-23] VITALS (7 sets, daily range): BP systolic 80–117; BP diastolic 50–68; PULSE 87–96; RESP 17–20; TEMP 97.8–101.1; O2SAT 93–100
[2017-11-23] MEDS: MORPHINE SULFATE 2 MG/ML INJ IV PUSH PRN ×2 (00:50→06:17)
[2017-11-23] MEDS: ACETAMINOPHEN/HYDROcodone 325 MG/10 MG TAB PO PRN ×4 (03:47→20:22)
[2017-11-23] MEDS: INSULIN ASPART SUPPLEMENTAL SCALE SQ SCH ×4 (08:00→20:38)
[2017-11-23] MEDS ORDERED: SODIUM CHLORID 0.9% 500 ML INJ 250 ML IV SCH (08:15)
--- NOTE | 2017-11-23 08:54 | PD.VS.PN ---
Pre-operative Note Pre-operative diagnosis: 1. L UE tissue loss, access-related hand ischemia 2. R LE tissue loss, PAD with ESRD Planned procedure: 1. L UE angiogram 2. R LE angiogram and potential endovascular intervention Interval History: The patient has continued pain but no motor dysfunction. She is due for HD Thursday and needs to be scheduled for the MORNING session Labs: Laboratory Results Test 11/21/17 13:51 11/22/17 06:10 Hematocrit 34.7 % (35.0-46.0) Hemoglobin 10.8 GM/DL (11.6-15.3) Mean Corpuscular Hemoglobin 28.6 PG (27.0-34.0) Mean Corpuscular Hemoglobin Concent 31.2 % (32.0-36.0) Mean Corpuscular Volume 91.8 FL (80.0-100.0) Mean Platelet Volume 8.9 FL (7.0-11.0) Platelet Count 201 TH/MM3 (150-450) Red Blood Count 3.78 MIL/MM3 (4.00-5.30) Red Cell Distribution Width 15.9 % (11.6-17.2) White Blood Count 6.8 TH/MM3 (4.0-11.0) Anion Gap 13 MEQ/L (5-15) Blood Urea Nitrogen 56 MG/DL (7-18) Creatinine 9.42 MG/DL (0.50-1.00) Random Glucose 98 MG/DL (74-106) Calcium Level 8.3 MG/DL (8.5-10.1) Phosphorus Level 8.1 MG/DL (2.5-4.9) Magnesium Level 2.5 MG/DL (1.5-2.5) Sodium Level 139 MEQ/L (136-145) Potassium Level 5.2 MEQ/L (3.5-5.1) Chloride Level 101 MEQ/L (98-107) Carbon Dioxide Level 24.9 MEQ/L (21.0-32.0) Blood: none needed EKG: LVH Imaging: Last Impressions Lower Extremity Ultrasound 11/21/17 0000 Signed Impressions: Service Date/Time: Tuesday, November 21, 2017 08:32 - CONCLUSION: No DVT. Martin Deleon MD Chest X-Ray 11/20/172 Signed Impressions: Service Date/Time: Monday, November 20, 2017 21:18 - CONCLUSION: Stable appearance with no acute cardiopulmonary disease. Baudilio Schuster MD Foot X-Ray 11/20/172032 Signed Impressions: Service Date/Time: Monday, November 20, 2017 20:44 - CONCLUSION: 1. Eopenia and osteophytic change. 2. No evidence to suggest osteomyelitis. Baudilio Schuster MD CTA A/P with runoff scheduled for TODAY 11/23/17; discussed with CT yesterday Orders: NPO after MN Needs HD THURSDAY MORNING CTA w/ runoff ordered and scheduled for today Post-operative destination: PACU Operative site marked: Yes Consent: Informed consent has been obtained from Arlyn Tavares. I have explained the procedure in detail and discussed the risks, benefits, and potential complications. All questions have been answered. Don Ramirez MD Nov 23, 2017 08:54
[2017-11-23] MEDS: METOPROLOL TARTRATE 25 MG TAB PO SCH ×2 (09:00→20:22)
[2017-11-23] MEDS: DOCUSATE SODIUM 50 MG/SENNA 8.6 MG TAB PO SCH ×2 (09:00→20:22)
--- NOTE | 2017-11-23 09:41 | HHI.PR ---
Subjective Remarks Pt continues to complain of pain however I spoke w RN earlier this morning, her BP dropped after getting pain meds. Pt is asymptomatic w no lightheadedness or dizziness. Pt had HD yesterday. Pt has been doing her IS and I encouraged her to keep using it regularly as she did have a fever overnight Pt denies any cough or SOB. Pt states she only makes some urine when she has a BMs. Objective Vitals Vital Signs Date Time Temp Pulse Resp B/P (MAP) Pulse Ox O2 Delivery O2 Flow Rate FiO2 11/23/17 08:00 99.3 95 19 80/50 (60) 94 11/23/17 00:00 101.1 96 20 99/58 (72) 100 11/22/17 20:00 99.2 89 20 100/57 (71) 100 11/22/17 17:51 92 21 11/22/17 16:00 98.1 79 18 124/62 (82) 92 I/O 11/22/17 11/22/17 11/22/17 11/23/17 11/23/17 11/23/17 07:00 15:00 23:00 07:00 15:00 23:00 Intake Total 720 ml 100 ml 120 ml 240 ml 120 ml Output Total 0 ml 1000 ml 3 ml Balance 720 ml -900 ml 120 ml 237 ml 120 ml Intake Oral 720 ml 120 ml 240 ml 120 ml IV Total 100 ml Output Urine Total 0 ml Stool Total 3 ml Hemodialysis 1000 ml # Voids 0 0 0 # Bowel Movements 0 0 Result Diagram: 11/21/17 1351 11/22/17 0610 Imaging Last Impressions Lower Extremity Ultrasound 11/21/17 0000 Signed Impressions: Service Date/Time: Tuesday, November 21, 2017 08:32 - CONCLUSION: No DVT. Martin Deleon MD Chest X-Ray 11/20/172101 Signed Impressions: Service Date/Time: Monday, November 20, 2017 21:18 - CONCLUSION: Stable appearance with no acute cardiopulmonary disease. Baudilio Schuster MD Foot X-Ray 11/20/172032 Signed Impressions: Service Date/Time: Monday, November 20, 2017 20:44 - CONCLUSION: 1. Eopenia and osteophytic change. 2. No evidence to suggest osteomyelitis. Baudilio Schuster MD Objective Remarks GENERAL: Middle-aged female HEENT: EOMI. CARDIOVASCULAR: Regular rate and rhythm. No obvious murmurs to auscultation. RESPIRATORY: No obvious wheezing. Clear to auscultation. Breath sounds equal bilaterally. GASTROINTESTINAL: Abdomen soft, non-tender, nondistended. BS normal. MUSCULOSKELETAL: Right foot +necrotic 2nd, 3rd toes, +foul-smelling. left hand w necrosis on the left 4th digit, tender to touch NEUROLOGICAL: alert and oriented. Moving both upper and lower extremities spontaneously. A/P Problem List: (1) Gangrene of foot ICD Code: I96 - Gangrene, not elsewhere classified (2) ESRD (end stage renal disease) on dialysis ICD Code: N18.6 - End stage renal disease; Z99.2 - Dependence on renal dialysis Status: Chronic (3) DM (diabetes mellitus) ICD Code: E11.9 - Type 2 diabetes mellitus without complications Assessment and Plan 1. Right Foot and left 4th finger Gangrene: necrotic right foot infection, Foot X-ray w/ no evidence of osteomyelitis. Blood Cultures neg x 2 days, s/p Vanc/Zosyn in ER, now on cefepime IV. Vasc Sx evaluated the pt and has ordered CTA A/P w runoff. Pt tentatively scheduled for Thursday for angiogram of both aortic arch and arterial inflow to the L UE and RLE. ABIs non diagnostic as measurements couldn't be done. Analgesics as needed however need to be cautious as pt's BP are low. Wound Consult for further management. Monitor closely for progression of infection and possible sepsis. Check u/a and chest x-ray. Encourage use of IS q1hr while awake. 2. ESRD on HD: M/W/F, but got HD yesterday due to holiday. Follow w/ Dr. Borden, Nephrology following. 3. Hypotension: This morning BP was 80/50, will give gentle IVF NS @50ml/hr for a total of 250ml as pt is a dialysis patient. Monitor closely. 4. DM: Sliding scale w/ Accu-Cheks. 5. DVT Prophylaxis: Heparin sq Discharge Planning vasc sx workup in progress. tentatively scheduled for angiogram on thursday Vy Kim MD Nov 23, 2017 09:41
--- NOTE | 2017-11-23 10:30 | RADRPT ---
EXAM DATE/TIME: 11/23/2017 10:14 [facility] COMPARISON: CHEST SINGLE AP, November 20, 2017, 21:18. INDICATIONS : Shortness of breath. MEDICAL HISTORY : Hypertension. Diabetes mellitus type II. SURGICAL HISTORY : Coronary artery stent. ENCOUNTER: Subsequent ACUITY: 4 - 6 days PAIN SCORE: 0/10 LOCATION: Bilateral chest FINDINGS: The heart size is upper limits of normal for size. The lungs are grossly clear. No effusion is seen. There is a vascular stent seen over the left axillary region. CONCLUSION: No acute disease. Martin Deleon MD on November 23, 2017 at 10:28 Board Certified Radiologist. This report was verified electronically.
[2017-11-23 10:38] LABS: BICARBONATE 31.8 MEQ/L (21.0-32.0); CREATININE 7.07 MG/DL (0.50-1.00); MAGNESIUM 2.3 MG/DL (1.5-2.5); PHOSPHORUS 7.3 MG/DL (2.5-4.9)
[2017-11-23] MEDS: SEVELAMER CARBONATE 800 MG TAB PO SCH ×3 (10:57→18:14)
[2017-11-23] MEDS: CEFEPIME INJ 1,000 MG in SODIUM CHLORIDE 0.9% INJ 100 ML IV SCH (10:57)
[2017-11-23] MEDS: ASPIRIN 81 MG CHEW TAB PO SCH (10:58)
[2017-11-23] MEDS: GABAPENTIN 100 MG CAP PO SCH ×3 (10:59→18:14)
[2017-11-23] MEDS: FOLIC ACID 1 MG TAB PO SCH (10:59)
[2017-11-23] MEDS: HEPARIN SODIUM - SQ 10,000 UNITS/ML VIAL SQ SCH ×2 (10:59→20:40)
[2017-11-23] MEDS: HYDROXYCHLOROQUINE SULFATE 200 MG TAB PO SCH (11:00)
[2017-11-23] MEDS: CLOPIDOGREL 75 MG TAB PO SCH (11:00)
--- NOTE | 2017-11-23 12:02 | HHI.NPPN ---
Subjective Interval History Had dialysis yesterday. Angiogram is planned for tomorrow. Review of Systems General Constitutional: Fatigue Objective Data Data 11/23/17 11/24/17 19:00 07:00 Intake Total 120 ml Balance 120 ml Intake Oral 120 ml Vital Signs Date Time Temp Pulse Resp B/P (MAP) Pulse Ox O2 Delivery O2 Flow Rate FiO2 11/23/17 08:00 99.3 95 19 80/50 (60) 94 11/23/17 00:00 101.1 96 20 99/58 (72) 100 11/22/17 20:00 99.2 89 20 100/57 (71) 100 11/22/17 17:51 92 21 11/22/17 16:00 98.1 79 18 124/62 (82) 92 -: 11/21/17 1351 11/23/17 0911 Physical Exam General Appearance: Well Developed, No Acute Distress, Malnourished Eyes Eye Exam: Pupils Equal Throat Throat Exam: Oral Mucosa [place] & Moist Neck Neck Exam: Neck Supple Pulmonary Resp Exam: Clear Bilaterally, Breath Sounds Equal Cardiology CV Exam: Regular, Normal Sinus Rhythm Gastrointestinal/Abdomen GI Exam: Soft, Non-Tender Extremeties Extremities Exam: No Edema Extremeties Remarks chronic ischemic changes. Wound on the right foot. Assessment/Plan Problem List: (1) ESRD (end stage renal disease) on dialysis ICD Codes: N18.6 - End stage renal disease; Z99.2 - Dependence on renal dialysis Status: Chronic Plan: Dialysis will be MWF,dialysis today due to holiday schedule. Avoid Gadolinium. Monitor fluid and electrolytes. High protein diet. (2) DM (diabetes mellitus) ICD Codes: E11.9 - Type 2 diabetes mellitus without complications Plan: insulin coverage. (3) Metabolic bone disease ICD Codes: E88.9 - Metabolic disorder, unspecified; M90.80 - Osteopathy in diseases classified elsewhere, unspecified site Status: Acute Plan: Changed diet to high protein, low phosphorus diet. Ordered Renvela, her serum phosphorus is high. (4) Gangrene of foot ICD Codes: I96 - Gangrene, not elsewhere classified Plan: Wound care, Vascular surgery on the case. Consider podiatry evaluation as well. She also has ischemia of the access hand. (5) Anemia of renal disease ICD Codes: D63.1 - Anemia in chronic kidney disease Plan: hemoglobin is currently acceptable, monitor. Epogen as needed. Nazario Ahumada MD Nov 23, 2017 12:02
[2017-11-23] MEDS ORDERED: IOHEXOL 350 MG/ML 10 ML VIAL (for RAD DIAG) IVCONTRAST ONE (16:24)
[2017-11-23] MEDS: SODIUM CHLORIDE 0.9% FLUSH 10 ML FLUSH IV FLUSH SCH ×2 (18:19→20:23)
[2017-11-23] MEDS: DOXAZOSIN MESYLATE 2 MG TAB PO SCH (20:22)
[2017-11-23] MEDS ORDERED: SODIUM CHLORID 0.9% 500 ML IV PRN (22:15)
[2017-11-23] MEDS ORDERED: CHLORHEXIDINE GLUCONATE 2 % 1 PACK (2 CLOTHS) TOPICAL PRN (22:15)
[2017-11-23] MEDS ORDERED: POVIDONE IODINE 5% (ANTISEPSIS KIT) 4 APPLICATIONS EACH NARE PRN (22:15)
--- NOTE | 2017-11-23 23:13 | RADRPT ---
EXAM DATE/TIME: 11/23/2017 15:54 [facility] COMPARISON: CTA RUNOFF W 3D RECON, June 18, 2017, 11:04. INDICATIONS : Right foot pain for ten days. IV CONTRAST: 99 cc Omnipaque 350 (iohexol) IV RADIATION DOSE: 1.71 CTDIvol (mGy) MEDICAL HISTORY : Hepatitis C. diabetes, congestive heart failure, renal failure SURGICAL HISTORY : None. ENCOUNTER: Initial ACUITY: 2 weeks PAIN SCALE: 8/10 LOCATION: Right foot TECHNIQUE: Volumetric scanning was performed using a multi-row detector CT scanner. The data was post processed with a variety of visualization algorithms including full volume maximum intensity projection, multi -planar sliding thin slab reformation, curved planar reformation, and surface rendering techniques. Using automated exposure control and adjustment of the mA and/or kV according to patient size, radiat ion dose was kept as low as reasonably achievable to obtain optimal diagnostic quality images. DICO M format image data is available electronically for review and comparison. FINDINGS: Aorta/inflow: Diffuse calcified plaque throughout the aorta and inflow vessels. No aneurysmal change. A 50% stenosi s of the distal right common iliac artery extending into the origin of the external iliac artery is u nchanged. The right external iliac artery is otherwise patent. Left inflow is heavily calcified but a ppears patent. The left internal iliac artery remains occluded. The right is stenotic. The celiac antonia gin is highly stenotic. SMA is patent. A moderate stenosis of all the renal artery origin. Left renal artery is patent. Right lower extremity: Heavy disease is seen involving the outflow vessels. The common femoral artery is heavily calcified a nd highly stenotic. Profunda femoris is stenotic at its origin. The SFA and popliteal artery are brody rely diseased. The majority of the SFA is occluded. There are short segment reconstitution is noted. The popliteal artery is highly stenotic throughout its entirety the trifurcation vessels are heavily and diffusely calcified. This generates beam hardening artifact limiting the patency evaluation. Ther e is variant anatomy with the posterior tibial artery tapering in the proximal calf and the peroneal artery supplying the majority of flow to the posterior tibial artery via a range point within a very long tibioperoneal trunk. There are high-grade stenoses involving the origin of the peroneal and post erior tibial artery. Multiple scattered stenoses suspected throughout the remaining aspects of those vessels as well. Anterior tibial artery is heavily diseased with scattered areas of mild to moderate luminal narrowing throughout. Left lower extremity: The common femoral artery is calcified and with a 40% stenosis. Profunda femoris is stenotic at its o rigin. The outflow vessels are highly calcified with multiple areas of moderate luminal narrowing thr oughout the entire SFA and popliteal artery. There is variant anatomy with an early origin today into tibial artery occurring at the [id number] popliteal level. The trifurcation vessels are heavily calcified with beam hardening artifact limiting their patency evaluation. The tibioperoneal trunk is diffusely diseased with multiple moderate stenoses. High-grade stenoses involving origin of the poste rior tibial artery and peroneal artery. Multiple moderate stenoses scattered throughout the remaining peroneal and posterior tibial artery. Anterior tibial artery shows diffuse disease as well with mult iple scattered areas of mild to moderate luminal narrowing. Other structures: A 6.1 cm right renal mass is larger from the prior study. It measured 5.5 cm in greatest dimension on that exam. The left kidney is atrophic and contains multiple low-density lesions. CONCLUSION: 1. Moderate inflow stenosis on the right. Left inflow is calcified but patent. 2. Severe outflow and runoff disease bilaterally as detailed above discussion. 3. Enlarging right renal mass. This now measures 6.1 cm where previously measured 5.5 cm. The left ki dney is atrophic. Trever Carballo Jr., MD on November 23, 2017 at 22:54 Board Certified Radiologist. This report was verified electronically.
[2017-11-24] VITALS (7 sets, daily range): BP systolic 82–145; BP diastolic 51–62; PULSE 74–82; RESP 16–18; TEMP 98.3–99.4; O2SAT 92–100
[2017-11-24] MEDS ORDERED: SODIUM CHLORID 0.9% 500 ML INJ 500 ML IV SCH (04:45)
[2017-11-24] MEDS ORDERED: SODIUM CHLORID 0.9% 500 ML INJ 250 ML IV ONE (06:00)
[2017-11-24] MEDS: INSULIN ASPART SUPPLEMENTAL SCALE SQ SCH ×4 (08:00→21:00)
[2017-11-24 08:03] LABS: CREATININE 9.01 MG/DL (0.50-1.00); MAGNESIUM 2.6 MG/DL (1.5-2.5)
[2017-11-24] MEDS: DOCUSATE SODIUM 50 MG/SENNA 8.6 MG TAB PO SCH ×2 (09:00→20:07)
[2017-11-24] MEDS: SODIUM CHLORIDE 0.9% FLUSH 10 ML FLUSH IV FLUSH SCH ×2 (09:00→20:06)
[2017-11-24] MEDS: ACETAMINOPHEN/HYDROcodone 325 MG/5 MG TAB PO PRN (09:10)
[2017-11-24] MEDS: GABAPENTIN 100 MG CAP PO SCH ×2 (09:12→12:42)
[2017-11-24] MEDS: CLOPIDOGREL 75 MG TAB PO SCH (09:12)
[2017-11-24] MEDS: FOLIC ACID 1 MG TAB PO SCH (09:13)
[2017-11-24] MEDS: HYDROXYCHLOROQUINE SULFATE 200 MG TAB PO SCH (09:13)
[2017-11-24] MEDS: ASPIRIN 81 MG CHEW TAB PO SCH (09:15)
[2017-11-24] MEDS: CEFEPIME INJ 1,000 MG in SODIUM CHLORIDE 0.9% INJ 100 ML IV SCH (09:15)
[2017-11-24] MEDS: HEPARIN SODIUM - SQ 10,000 UNITS/ML VIAL SQ SCH ×2 (09:16→20:08)
--- NOTE | 2017-11-24 10:33 | HHI.PR ---
Subjective Remarks Patient is scheduled to have surgery on her left hand as well as her right foot today Also scheduled to have hemodialysis later today has pain in the right foot and left hand Objective Vitals Vital Signs Date Time Temp Pulse Resp B/P (MAP) Pulse Ox O2 Delivery O2 Flow Rate FiO2 11/24/17 09:46 93 11/24/17 08:00 99.4 80 18 99/57 (71) 93 11/24/17 04:00 98.7 82 16 82/58 (66) 92 11/24/17 00:00 98.3 82 16 93/62 (72) 92 11/23/17 20:00 99.1 91 17 103/59 (74) 93 11/23/17 17:36 96 21 11/23/17 16:00 97.8 87 20 94/55 (68) 96 11/23/17 13:10 94 11/23/17 12:00 99.5 92 19 117/68 (84) 98 I/O 11/23/17 11/23/17 11/23/17 11/24/17 11/24/17 11/24/17 07:00 15:00 23:00 07:00 15:00 23:00 Intake Total 240 ml 120 ml 960 ml 240 ml Output Total 3 ml Balance 237 ml 120 ml 960 ml 240 ml Intake Oral 240 ml 120 ml 960 ml 240 ml Stool Total 3 ml # Voids 0 3 Result Diagram: 11/21/17 1351 11/24/17 0644 Other Results Laboratory Tests Test 11/21/17 13:51 11/22/17 06:10 11/23/17 09:11 11/24/17 06:44 White Blood Count 6.8 TH/MM3 Red Blood Count 3.78 MIL/MM3 Hemoglobin 10.8 GM/DL Hematocrit 34.7 % Mean Corpuscular Volume 91.8 FL Mean Corpuscular Hemoglobin 28.6 PG Mean Corpuscular Hemoglobin Concent 31.2 % Red Cell Distribution Width 15.9 % Platelet Count 201 TH/MM3 Mean Platelet Volume 8.9 FL Neutrophils (%) (Auto) 60.7 % Lymphocytes (%) (Auto) 17.9 % Monocytes (%) (Auto) 16.2 % Eosinophils (%) (Auto) 4.1 % Basophils (%) (Auto) 1.1 % Neutrophils # (Auto) 4.1 TH/MM3 Lymphocytes # (Auto) 1.2 TH/MM3 Monocytes # (Auto) 1.1 TH/MM3 Eosinophils # (Auto) 0.3 TH/MM3 Basophils # (Auto) 0.1 TH/MM3 CBC Comment DIFF FINAL Differential Comment Blood Urea Nitrogen 40 MG/DL 56 MG/DL 41 MG/DL 55 MG/DL Creatinine 7.64 MG/DL 9.42 MG/DL 7.07 MG/DL 9.01 MG/DL Random Glucose 161 MG/DL 98 MG/DL 122 MG/DL 122 MG/DL Total Protein 7.8 GM/DL Albumin 2.5 GM/DL Calcium Level 9.2 MG/DL 8.3 MG/DL 9.0 MG/DL 9.0 MG/DL Alkaline Phosphatase 121 U/L Aspartate Amino Transf (AST/SGOT) 27 U/L Alanine Aminotransferase (ALT/SGPT) 27 U/L Total Bilirubin 0.4 MG/DL Sodium Level 138 MEQ/L 139 MEQ/L 140 MEQ/L 138 MEQ/L Potassium Level 4.2 MEQ/L 5.2 MEQ/L 4.1 MEQ/L 4.6 MEQ/L Chloride Level 99 MEQ/L 101 MEQ/L 100 MEQ/L 99 MEQ/L Carbon Dioxide Level 26.9 MEQ/L 24.9 MEQ/L 31.8 MEQ/L 27.0 MEQ/L Anion Gap 12 MEQ/L 13 MEQ/L 8 MEQ/L 12 MEQ/L Estimat Glomerular Filtration Rate 7 ML/MIN 5 ML/MIN 7 ML/MIN 5 ML/MIN Phosphorus Level 8.1 MG/DL 7.3 MG/DL 9.0 MG/DL Magnesium Level 2.5 MG/DL 2.3 MG/DL 2.6 MG/DL Imaging Last Impressions Chest X-Ray 11/23/17 0000 Signed Impressions: Service Date/Time: Thursday, November 23, 2017 10:14 - CONCLUSION: No acute disease. Martin Deleon MD Lower Extremity Ultrasound 11/21/17 0000 Signed Impressions: Service Date/Time: Tuesday, November 21, 2017 08:32 - CONCLUSION: No DVT. Martin Deleon MD Aorta w/Runoff CTA 11/21/17 0000 Signed Impressions: Service Date/Time: Thursday, November 23, 2017 15:54 - CONCLUSION: 1. Moderate inflow stenosis on the right. Left inflow is calcified but patent. 2. Severe outflow and runoff disease bilaterally as detailed above discussion. 3. Enlarging right renal mass. This now measures 6.1 cm where previously measured 5.5 cm. The left kidney is atrophic. Trever Carballo Jr., MD Foot X-Ray [id number]/20/[id number] Signed Impressions: Service Date/Time: Monday, November 20, 2017 20:44 - CONCLUSION: 1. Eopenia and osteophytic change. 2. No evidence to suggest osteomyelitis. Baudilio Schuster MD Objective Remarks GENERAL: Awake alert oriented talkative and cooperative SKIN: Warm and dry. Has wound on left hand as well as right foot for surgery today HEAD: Atraumatic. Normocephalic. EYES: Pupils equal and round. No scleral icterus. No injection or drainage. Extraocular muscles intact ENT: No nasal bleeding or discharge. Mucous membranes pink and moist. Tongue is midline NECK: Trachea midline. No JVD. Supple CARDIOVASCULAR: Regular rate and rhythm. S1 and S2 no S3-S4 RESPIRATORY: No accessory muscle use. Clear to auscultation. Breath sounds equal bilaterally. GASTROINTESTINAL: Abdomen soft, non-tender, nondistended. Hepatic and splenic margins not palpable. MUSCULOSKELETAL: Extremities without clubbing, cyanosis, or edema. No obvious deformities. Left hand to have surgery today in the right foot to have surgery today NEUROLOGICAL: Awake and alert. No obvious cranial nerve deficits. Motor grossly within normal limits. 4 out of 5 muscle strength in the arms and legs. Normal speech. PSYCHIATRIC: Appropriate mood and affect; insight and judgment normal. Medications and IVs Current Medications Vancomycin HCl 1000 mg/Sodium Chloride 250 ml @ 250 mls/hr ONCE STAT IV Last administered on 11/20/17 23:27; Start 11/20/17 at 22:46; Stop 11/20/17 at 23 :45; Status DC Piperacillin Sod/ Tazobactam Sod 50 ml @ 100 mls/hr ONCE ONCE IV Last administered on 11/20/17 22:58; Start 11/20/17 at 23:00; Stop 11/20/17 at 23 :29; Status DC Dextrose (D50w (Vial) Inj) 50 ml UNSCH PRN IV PUSH HYPOGLYCEMIA-SEE COMMENTS; Start 11/20/17 at 23:00 Glucagon (Glucagon Inj) 1 mg UNSCH PRN OTHER HYPOGLYCEMIA-SEE COMMENTS; Start 11/20/17 at 23:00 Insulin Aspart (NovoLOG SUPPLEMENTAL SCALE) 1 ACHS SLIDING SCALE SQ Last administered on 11/23/17 20:38; Start 11/21/17 at 08:00 Cefepime HCl 1000 mg/Sodium Chloride 100 ml @ 200 mls/hr Q24H IV Last administered on 11/24/17 09:15; Start 11/21/17 at 09:00 Sodium Chloride (NS Flush) 2 ml UNSCH PRN IV FLUSH FLUSH AFTER USING IV ACCESS Last administered on 11/21/17 05:32; Start 11/20/17 at 23:00 Sodium Chloride (NS Flush) 2 ml BID IV FLUSH Last administered on 11/23/17 20: 23; Start 11/21/17 at 09:00 Ondansetron HCl (Zofran Inj) 4 mg Q6H PRN IVP NAUSEA OR VOMITING; Start at 23:00 Acetaminophen (Tylenol) 650 mg Q6H PRN PO FEVER/PAIN SCALE 1 TO 2 Last administered on 11/23/17 00:48; Start 11/20/17 at 23:00 Acetaminophen/ Hydrocodone Bitart (Scenic 5-325 Mg) 1 tab Q4H PRN PO PAIN SCALE 3 TO 5 Last administered on 11/24/17 09:10; Start 11/20/17 at 23:00 Morphine Sulfate (Morphine Inj) 2 mg Q3H PRN IV PUSH BREAKTHROUGH PAIN Last administered on 11/23/17 06:17; Start 11/20/17 at 23:00 Senna/Docusate Sodium (Elsy-Colace) 1 tab BID PO Last administered on 21:13; Start 11/21/17 at 09:00 Magnesium Hydroxide (Milk Of Magnesia Liq) 30 ml Q12H PRN PO Mild constipation ; Start 11/20/17 at 23:00 Sennosides (Senokot) 17.2 mg Q12H PRN PO Moderate constipation; Start at 23:00 Bisacodyl (Dulcolax Supp) 10 mg DAILY PRN RECTAL SEVERE CONSITIPATION; Start 11/20/17 at 23:00 Lactulose (Lactulose Liq) 30 ml DAILY PRN PO SEVERE CONSITIPATION; Start 11/20 at 23:00 Aspirin (Aspirin Chew) 162 mg DAILY PO Last administered on 11/24/17 09:15; Start 11/21/17 at 09:00 Clopidogrel Bisulfate (Plavix) 75 mg DAILY PO Last administered on 11/24/17 09: 12; Start 11/21/17 at 09:00 Doxazosin Mesylate (Cardura) 2 mg HS PO Last administered on 11/21/17 21:13; Start 11/21/17 at 21:00 Folic Acid (Folate) 1 mg DAILY PO Last administered on 11/24/17 09:13; Start 11/21/17 at 09:00 Gabapentin (Neurontin) 100 mg TID PO Last administered on 11/24/17 09:12; Start 11/21/17 at 09:00 Hydroxychloroquine Sulfate (Plaquenil) 200 mg DAILY PO Last administered on 11/24 09:13; Start 11/21/17 at 09:00 Metoprolol Tartrate (Lopressor) 25 mg BID PO Last administered on 11/21/17 08 :24; Start 11/21/17 at 09:00 Heparin Sodium (Porcine) (Heparin Inj) 5,000 units Q12HR SQ Last administered on 11/24/17 09:16; Start 11/21/17 at 09:00 Sodium Chloride 1,000 ml @ 0 mls/hr Q0M PRN OTHER For Prime & Rinse Back; Start 11/21/17 at 09:38 Heparin Sodium (Porcine) (Heparin Inj) 8,000 units UNSCH PRN IV FLUSH WITH DIALYSIS; Start 11/21/17 at 09:45 Sodium Chloride 1,000 ml @ 200 mls/hr Q5H PRN IV WITH DIALYSIS; Start at 09:38 Sodium Chloride 1,000 ml @ 0 mls/hr Q0M PRN OTHER WITH DIALYSIS; Start at 09:38 Mannitol (Mannitol Inj) 12.5 gm UNSCH PRN IV WITH DIALYSIS; Start 11/21/17 at 09:45 Albumin Human 100 ml @ 60 mls/hr UNSCH PRN IV WITH DIALYSIS; Start 11/21/17 at 09:45 Sodium Chloride (NS Flush) 5 ml UNSCH PRN IV FLUSH WITH DIALYSIS; Start at 09:45 Heparin Sodium (Porcine) (Heparin Inj) UNSCH PRN .XX WITH DIALYSIS; Start at 09:45 Gentamicin Sulfate (Gentamicin (Dialysis) Inj) 20 mg UNSCH PRN OTHER WITH DIALYSIS; Start 11/21/17 at 09:45 Ondansetron HCl (Zofran Inj) 4 mg UNSCH PRN IV PUSH WITH DIALYSIS; Start 11/21 at 09:45 Acetaminophen (Tylenol) 650 mg UNSCH PRN PO for headach, temp > 101F; Start at 09:45 Diphenhydramine HCl (Benadryl) 25 mg UNSCH PRN PO for hives/itching/anaphylaxis ; Start 11/21/17 at 09:45 Nitroglycerin (Nitrostat Sl) 0.4 mg UNSCH PRN SL CHEST PAIN; Start 11/21/17 at 09:45 Clonidine (Catapres) 0.1 mg UNSCH PRN PO for BP > 180/100 X 2 readings; Start 11/21/17 at 09:45 Epoetin Logan (Epogen Inj) 5,000 units UNSCH PRN IV PUSH WITH DIALYSIS Last administered on 11/22/17 12:00; Start 11/21/17 at 09:45 Gelatin (Gelfoam 12 Mm/7 Mm Top) 1 foam UNSCH PRN TOP SEE LABEL COMMENTS Last administered on 11/22/17t 12:10; Start 11/21/17 at 09:45 Acetaminophen/ Hydrocodone Bitart (Scenic 10-325 Mg) 1 tab Q4H PRN PO PAIN SCALE 6 TO 10 Last administered on 11/23/17at 20:22; Start 11/21/17 at 12:00 Sevelamer Carbonate (Renvela) 1,600 mg TIDAC PO Last administered on 11/23/17 18:14; Start 11/22/17 at 12:00; Stop 11/24/17 at 09:08; Status DC Sodium Chloride 250 ml @ 50 mls/hr Q5H IV Last administered on 11/23/17 08:15 ; Start 11/23/17 at 08:15; Stop 11/23/17 at 13:14; Status DC Iohexol (Omnipaque 350 Inj) 99 ml STK-MED ONCE IVCONTRAST Last administered on 11/23/17at 16:24; Start 11/23/17 at 16:24; Stop 11/23/17 at 16:25; Status DC Sodium Chloride 500 ml @ 30 mls/hr [id number] PRN IV SEE LABEL COMMENTS; Start 11/23/17 at 22:15; Stop 11/26/17 at 22:14 Povidone Iodine (Betadine 5% Antisepsis Kit) 1 applic BAND SAW OPERATOR CAKE CUTTING PRN EACH NARE SEE LABEL COMMENTS; Start 11/23/17 at 22:15; Stop 11/26/17 at 22:14 Chlorhexidine Gluconate (Chlorhexidine 2% Cloth) 3 pack BAND SAW OPER[employer] CAKE CUTTING PRN TOPICAL SEE LABEL COMMENTS; Start 11/23/17 at 22:15; Stop 11/26/17 at 22:14 Sodium Chloride 500 ml @ 50 mls/hr Q10H IV ; Start 11/24/17 at 04:45; Stop at 04:51; Status DC Sodium Chloride 250 ml @ 50 mls/hr Q5H ONCE IV ; Start 11/25/17 at 05:40; Stop 11/25/17 at 10:39; Status Cancel Sodium Chloride 250 ml @ 50 mls/hr Q5H ONCE IV Last administered on 11/24/17at 06:03; Start 11/24/17 at 06:00; Stop 11/24/17 at 10:59 Sevelamer Carbonate (Renvela) 2,400 mg TIDAC PO ; Start 11/24/17 at 12:00 A/P Problem List: (1) Gangrene of foot ICD Code: I96 - Gangrene, not elsewhere classified (2) ESRD (end stage renal disease) on dialysis ICD Code: N18.6 - End stage renal disease; Z99.2 - Dependence on renal dialysis Status: Chronic (3) DM (diabetes mellitus) ICD Code: E11.9 - Type 2 diabetes mellitus without complications Assessment and Plan Assessment and Plan 1. Right Foot and left 4th finger Gangrene: necrotic right foot infection, Foot X-ray w/ no evidence of osteomyelitis. Blood Cultures neg x 2 days, s/p Vanc/Zosyn in ER, now on cefepime IV. Vasc Sx evaluated the pt and has ordered CTA A/P w runoff. Pt tentatively scheduled for Thursday for angiogram of both aortic arch and arterial inflow to the L UE and RLE. ABIs non diagnostic as measurements couldn't be done. Analgesics as needed however need to be cautious as pt's BP are low. Wound Consult for further management. Monitor closely for progression of infection and possible sepsis. Check u/a and chest x- ray. Encourage use of IS q1hr while awake. Patient have surgery on the right foot and left fourth finger today and then to have dialysis later on after that 2. ESRD on HD: M/W/F, but got HD yesterday due to holiday. Follow w/ Dr. Borden, Nephrology following. To dialysis after surgery 3. Hypotension: This morning BP was 80/50, will give gentle IVF NS @50ml/hr for a total of 250ml as pt is a dialysis patient. Monitor closely. 4. DM: Sliding scale w/ Accu-Cheks. 5. DVT Prophylaxis: Heparin sq. A.m. labs Pain control as needed after surgery Discharge Planning Pending surgical and renal clinic Guilherme Hua DO Nov 24, 2017 10:33
--- NOTE | 2017-11-24 11:14 | HHI.NPPN ---
Subjective Interval History Due for angiogram today. Having severe right foot pain. ([place]) Review of Systems General Constitutional: Fatigue ([place]) Musculoskeletal MS: Pain/Stiffness MS Remarks right foot pain ([place]) Objective Data Data Vital Signs Date Time Temp Pulse Resp B/P (MAP) Pulse Ox O2 Delivery O2 Flow Rate FiO2 11/24/17 09:46 93 11/24/17 08:00 99.4 80 18 99/57 (71) 93 11/24/17 04:00 98.7 82 16 82/58 (66) 92 11/24/17 00:00 98.3 82 16 93/62 (72) 92 11/23/17 20:00 99.1 91 17 103/59 (74) 93 11/23/17 17:36 96 21 11/23/17 16:00 97.8 87 20 94/55 (68) 96 11/23/17 13:10 94 11/23/17 12:00 99.5 92 19 117/68 (84) 98 ([place]) -: 11/21/17 1351 11/24/17 0644 Imaging Last 72 hours Impressions Chest X-Ray 11/23/17 0000 Signed Impressions: Service Date/Time: Thursday, November 23, 2017 10:14 - CONCLUSION: No acute disease. Martin Deleon MD ([place]) Physical Exam General Appearance: Well Developed, No Acute Distress, Malnourished ([place]) Eyes Eye Exam: Pupils Equal ([place]) Throat Throat Exam: Oral Mucosa [place] & Moist ([place]) Neck Neck Exam: Neck Supple ([place]) Pulmonary Resp Exam: Clear Bilaterally, Breath Sounds Equal ([place]) Cardiology CV Exam: Regular, Normal Sinus Rhythm ([place]) Gastrointestinal/Abdomen GI Exam: Soft, Non-Tender ([place]) Musculoskeletal MS Exam: Atrophy MS Remarks right foot with poor pulses. New nodule medial side, not fluctuant. Painful. ([place]) Integumentary Skin Exam: Warm, Dry ([place]) Extremeties Extremities Exam: No Edema ([place]) Neurologic Neuro Exam: Alert, Awake, Oriented, Speech Clear, Moving All Extremities ([place]) Psychiatric Psych Exam: Appropriate Responses ([place]) Assessment/Plan Discussed Condition With: Patient Assessment Summary: Anemia of CKD, Hypertension, End Stage Renal Disease Problem List: (1) ESRD (end stage renal disease) on dialysis ICD Codes: N18.6 - End stage renal disease; Z99.2 - Dependence on renal dialysis Status: Chronic Plan: Continue HD MWF, due tomorrow Avoid Gadolinium. Avoid IVF administration. Monitor fluid and electrolytes. High protein diet. Renvela dosage increased. (2) DM (diabetes mellitus) ICD Codes: E11.9 - Type 2 diabetes mellitus without complications Plan: Continue insulin coverage. Maintain glucose 140-180 mg/dL. (3) Metabolic bone disease ICD Codes: E88.9 - Metabolic disorder, unspecified; M90.80 - Osteopathy in diseases classified elsewhere, unspecified site Status: Acute Plan: Changed diet to high protein, low phosphorus diet. Ordered Renvela, her serum phosphorus is high. (4) Gangrene of foot ICD Codes: I96 - Gangrene, not elsewhere classified Plan: Continue Wound care Vascular surgery is following, due for angiogram today. Consider podiatry evaluation as well. She also has ischemia of the access hand. (5) Anemia of renal disease ICD Codes: D63.1 - Anemia in chronic kidney disease Plan: hemoglobin is currently acceptable, monitor. Epogen as needed. ([place]) Plan patient was seen and examined. Angiogram notes were reviewed. Needs DRIL for hand ischemia and right lower extremity revascularization. (Nazario Ahumada MD) [place] Nov 24, 2017 11:14 Nazario Ahumada MD Nov 24, 2017 21:13
[2017-11-24] MEDS: METOPROLOL TARTRATE 25 MG TAB PO SCH ×2 (11:54→20:07)
[2017-11-24] MEDS: SEVELAMER CARBONATE 800 MG TAB PO SCH ×2 (12:40→16:43)
--- NOTE | 2017-11-24 14:24 | PD.WCN.NOT ---
Wound Consult Description: Wound consult ordered by for Right foot Communicated with: Harriet RN Valeriano Mcduffie Recommendation: Defer to vascular surgeon Additional Information: Please defer to Vascular surgeon Yoselyn Garcia [facility] Nov 24, 2017 14:24
[2017-11-24] MEDS ORDERED: HEPARIN-NS/PF INJ 500 ML ONE (14:33)
[2017-11-24] MEDS ORDERED: VANCOMYCIN HCL 1000 MG VIAL ONE (14:33)
[2017-11-24] MEDS ORDERED: HEPARIN SODIUM - IV 10,000 UNITS/10 ML VIAL ONE (14:33)
[2017-11-24] MEDS ORDERED: PROTAMINE SULFATE 50 MG/5 ML VIAL ONE (14:33)
[2017-11-24] MEDS ORDERED: HYDROmorphone HCL PF 2 MG/ML VIAL IV ONE (15:15)
[2017-11-24] MEDS ORDERED: KETAMINE HCL 500 MG/5 ML VIAL ONE (15:21)
[2017-11-24] MEDS ORDERED: IOHEXOL 300 INJ 50 ML IV ONE (16:17)
[2017-11-24] MEDS ORDERED: *HYDROmorphone PF 1 MG VIAL PERIprocedural Use ONLY ONE (17:31)
[2017-11-24] MEDS ORDERED: MORPHINE SULFATE 4 MG/ML INJ ONE (17:34)
[2017-11-24] MEDS ORDERED: PHENYLEPHRINE HCL 10 MG/ML VIAL ONE (17:42)
[2017-11-24] MEDS ORDERED: HYDROmorphone HCL PF 2 MG/ML VIAL IV PRN (17:45)
[2017-11-24] MEDS ORDERED: DO NOT ADM ANY ANTICOAGULANT DRUGS PRN (17:45)
[2017-11-24] MEDS: PHENYLEPHRINE 40 MG in D5W 500 ML IV PRN (18:12)
[2017-11-24] MEDS ORDERED: TERBUTALINE INJ 1 MG/ML AMP SQ PRN (18:15)
--- NOTE | 2017-11-24 18:40 | HHI.PR ---
cc: Don Ramirez MD Immediate Post Op Note Procedure Date: Nov 24, 2017 Pre Op Diagnosis: L UE access-related hand ischemia R LE PAD with tissue loss Post Op Diagnosis: L UE access-related hand ischemia R LE PAD with tissue loss Surgeon: Don Ramirez [employer] Equipment [employer]men(s): Libby Bee Procedure: 1. Thoracic aortogram w/ L UE angiogram 2. Abdominal aortogram with R LE angiogram 3. L PRE SALES ARCHITECT Angioseal Findings: 1. Patent L UE AVF with no inflow stenosis but minimal forearm perfusion 2. Occluded R SFA and proximal profunda; BK popliteal reconstitution Additional Information: 1. Will need L UE DRIL for hand (likely 1-2 weeks) 2. Will need R groin reconstruction and distal (tentatively on ) Complications: none Specimen(s) removed: none Estimated blood loss: 10mL Anesthesia: General Drains: None Fluids: 250mL IVF Patient to: PACU Patient Condition: Good Date/Time of Procedure: SEE SURGICAL CARE RECORD Don Ramirez MD Nov 24, 2017 18:40
[2017-11-24] MEDS: DOXAZOSIN MESYLATE 2 MG TAB PO SCH (20:06)
[2017-11-24] MEDS: MORPHINE SULFATE 2 MG/ML INJ IV PUSH PRN (20:35)
--- NOTE | 2017-11-24 21:33 | PD.CONS ---
[facility] Service Critical Care Medicine Consult Requested By Dr. Ramirze Reason for Consult hypotension Primary Care Physician Unknown History of Present Illness 57-year-old female with past medical history of diabetes, hypertension, hyperlipidemia, coronary artery disease with prior stents, chronic systolic heart failure (EF 30-35%), end-stage renal disease on hemodialysis Thursday/Thursday/Thursday, peripheral neuropathy, chronic anemia who presented to to [facility] with two week history of right foot pain and drainage. She was admitted to to the hospitalist service and started on cefepime. Today she has undergone an aortogram with upper and lower extremity angiogram by Dr. Ramirez. Intraoperatively she received 250 of crystalloid. No EBL. She received general anesthesia, fentanyl 50 g IV, propofol, morphine 4 mg IV. She underwent dialysis yesterday with 1 kg removal. She was started on phenylephrine during the case and remains on this vasopressor. Was initially at 70 mcg/m upon arrival to [facility]. Now at 50 mcg/m. She denies CP/SOB Review of Systems ROS Limitations: Clinical Condition Constitutional: COMPLAINS OF: Fever Respiratory: DENIES: Cough, Wheezing Cardiovascular: DENIES: Syncope Gastrointestinal: DENIES: Bloody stools, Vomiting Musculoskeletal: COMPLAINS OF: Joint pain Integumentary: DENIES: Rash Neurologic: DENIES: Headache Past Family Social History Allergies: Coded Allergies: latex (Unverified Allergy, Severe, 11/20/17) RASH Past Medical History Diabetes mellitus Hypertension Hyperlipidemia Coronary artery disease with prior stents in May 2017 Chronic systolic heart failure Peripheral arterial disease End-stage renal disease Peripheral neuropathy Chronic anemia Past Surgical History section Left upper extremity AV fistula Hysterectomy Reported Medications Home medications: Hydroxychloroquine 200 mill grams by mouth daily Plavix 75 mg by mouth daily Nitroglycerin Doxazosin to mill grams by mouth daily at bedtime Metoprolol 25 mg by mouth twice a day Aspirin 162 mg by mouth daily Gabapentin 100 mill grams by mouth 3 times a day Linagliptin 5 mg po daily Cinacalcet 60 mg po bid Folic acid 1 mg po daaily MVI/Folic acid /Coq10 supplement Family History She reports family history of coronary artery disease and end-stage renal disease. Social History . is in a long term due to dementia No tobacco alcohol or illicit drug use Physical Exam Vital Signs Vital Signs Date Time Temp Pulse Resp B/P (MAP) Pulse Ox O2 Delivery O2 Flow Rate FiO2 11/24/17 21:11 100 Nasal Cannula 2.00 11/24/17 18:40 98.0 74 20 107/41 (63) 100 Nasal Cannula 2 11/24/17 18:30 74 20 107/41 (63) 100 Nasal Cannula 2 11/24/17 18:15 76 20 106/54 (71) 100 Nasal Cannula 2 11/24/17 18:12 74 106/44 11/24/17 18:00 73 20 88/46 (60) 100 Nasal Cannula 2 11/24/17 17:45 75 20 98/46 (63) 100 Nasal Cannula 2 11/24/17 17:22 98.6 82 20 88/61 (70) 100 Nasal Cannula 2 11/24/17 12:00 98.4 79 17 95/51 (66) 95 11/24/17 09:46 93 11/24/17 08:00 99.4 80 18 99/57 (71) 93 11/24/17 04:00 98.7 82 16 82/58 (66) 92 11/24/17 00:00 98.3 82 16 93/62 (72) 92 Physical Exam Temps 98.0 Blood pressure 113/73 pulse 87, sinus on the monitor sats 100% on 3 L nasal cannula. GENERAL: Pleasant female who is laying in ISC bed. On nasal cannula. SKIN: Warm and dry. See below for extremity exam. HEAD: Atraumatic. Normocephalic. EYES: Pupils equal and round, 2 mm reactive.. No scleral icterus. No injection or drainage. ENT: No nasal bleeding or discharge. Mucous membranes pink and moist. NECK: Trachea midline. No JVD. CARDIOVASCULAR: Regular rate and rhythm, sinus rhythm on the monitor with rate in the 70s.. No murmurs rubs or gallops. RESPIRATORY: Breathing comfortably with no accessory muscle use. Clear to auscultation. Breath sounds equal bilaterally. Sats 100% on 2 L nasal cannula. GASTROINTESTINAL: Abdomen soft, non-tender, nondistended. Bowel sounds present. No past megaly. MUSCULOSKELETAL/VASCULAR: Extremities without clubbing, cyanosis, or edema. AV fistula in left upper arm with palpable thrill. There is necrosis overlying distal phalanx of left fourth digit. There is necrosis of 2nd, 3rd and 5th digit of right foot. No drainage. R leg - palpable femoral, dopplerable popliteal, dopplerable monophasic pulse R DP. Left leg- palpable femoral, popliteal and weakly palpable DP pulse, dopplerable L PAVING RAMMER. NEUROLOGICAL: Awake and alert. No obvious cranial nerve deficits. Motor grossly within normal limits. . Normal speech. Laboratory Laboratory Tests Test 11/24/17 06:44 Blood Urea Nitrogen 55 Creatinine 9.01 Random Glucose 122 Calcium Level 9.0 Phosphorus Level 9.0 Magnesium Level 2.6 Sodium Level 138 Potassium Level 4.6 Chloride Level 99 Carbon Dioxide Level 27.0 Anion Gap 12 Estimat Glomerular Filtration Rate 5 Date/Time Source Procedure Growth Status 11/20/17 22:55 Blood Peripheral Aerobic Blood Culture - Preliminary NO GROWTH IN 4 DAYS Resulted 11/20/17 22:55 Blood Peripheral Anaerobic Blood Culture - Preliminary NO GROWTH IN 4 DAYS Resulted Result Diagram: 11/21/17 1351 11/24/17 0644 Assessment and Plan Problem List: (1) ESRD (end stage renal disease) on dialysis ICD Code: N18.6 - End stage renal disease; Z99.2 - Dependence on renal dialysis Status: Chronic (2) Gangrene of foot ICD Code: I96 - Gangrene, not elsewhere classified Status: Acute (3) Anemia of renal disease ICD Code: D63.1 - Anemia in chronic kidney disease Status: Chronic (4) DM (diabetes mellitus) ICD Code: E11.9 - Type 2 diabetes mellitus without complications Status: Chronic (5) Hypertension ICD Code: I10 - Essential (primary) hypertension Status: Chronic (6) CAD (coronary artery disease) ICD Code: I25.10 - Atherosclerotic heart disease of elem coronary artery without angina pectoris Status: Chronic (7) Hypotension ICD Code: I95.9 - Hypotension, unspecified Assessment and Plan NEURO: Peripheral neuropathy Gabapentin 100 mg by mouth 3 times a day RESP: Nasal cannula wean as tolerated Incentive spirometry every hour awake Check postop chest x-ray CV: Peripheral arterial disease Coronary artery disease with prior stents Essential hypertension at baseline Hyperlipidemia Hold Cardura 10 mg by mouth daily at bedtime. Hold metoprolol 25 mg by mouth twice a day Brennen-Synephrine to maintain mean arterial pressure greater than 65, hypotension post-anesthesia. Check post procedure Hgb. Check EKG s/p aortogram and angiogram 11/[address] Ramirez - tentative plan for RLE bypass . GAMA WALLER at a later date. plaquenil 200 mg daily Plavix 75 mg daily Aspirin 161 mg by mouth daily GI: Renal diet. NPO thu at midnight for bypass. FEN/RENAL: ESRD Hemodialysis Thursday/Thursday/Thursday per nephrology. Scheduled for dialysis 11/25 Renvela 2400 mg by mouth 3 times a day ID: Gangrene toes right foot, left finger. Blood cultures from 11/20 no growth to date On cefepime 1 g IV every 24 hours. Wound care following. ?podiatry consult, confer with Dr. Ramirez. HEME: Chronic anemia Erythropoietin 5000 units with dialysis Folic acid 1 mg by mouth daily ENDO: Diabetes mellitus, type II Low-dose insulin sliding scale AC/hs PROPH: Heparin 5000 subcutaneous to 12 for DVT prophylaxis. Protonix 40 mg by mouth daily for stress ulcer prophylaxis. ACCESS: PIV providing adequate access at this time. Level III consult Problem Qualifiers (1) Hypertension: Qualified Codes: I10 - Essential (primary) hypertension Breanna De Los Santos MD Nov 24, 2017 21:33
--- NOTE | 2017-11-24 21:46 | RADRPT ---
EXAM DATE/TIME: 11/24/2017 21:40 [place] COMPARISON: CHEST SINGLE AP, November 23, 2017, 10:14. INDICATIONS : Short of breath. MEDICAL HISTORY : Hypertension. Diabetes mellitus type II. SURGICAL HISTORY : None. ENCOUNTER: Subsequent ACUITY: 1 week PAIN SCORE: 0/10 LOCATION: Bilateral chest FINDINGS: A single view of the chest demonstrates bilateral perihilar airspace disease. Cardiomegaly. No pleura l effusions. Osseous structures are intact. CONCLUSION: Cardiomegaly with bilateral perihilar edema likely CHF. Noman Blevins MD on November 24, 2017 at 21:44 Board Certified Radiologist. This report was verified electronically.
[2017-11-24 22:08] LABS: AUTOMATED NEUTROPHIL # 6.9 TH/MM3 (1.8-7.7); BASOPHIL # 0.1 TH/MM3 (0-0.2); BASOPHIL % 0.9 % (0.0-2.0); EOSINOPHIL # 0.3 TH/MM3 (0-0.4); EOSINOPHIL % 2.8 % (0.0-4.0); HEMATOCRIT 33.8 % (35.0-46.0); HEMOGLOBIN 10.7 GM/DL (11.6-15.3); LYMPH % 23.7 % (9.0-44.0); LYMPHOCYTE # 2.8 TH/MM3 (1.0-4.8); MEAN CELL VOLUME 91.4 FL (80.0-100.0); MEAN CORPUSCULAR HEMOGLOBIN 28.8 PG (27.0-34.0); MEAN CORPUSCULAR HGB CONC 31.5 % (32.0-36.0); MEAN PLATELET VOLUME 9.3 FL (7.0-11.0); MONO % 14.9 % (0.0-8.0); MONOCYTE # 1.8 TH/MM3 (0-0.9); NEUT % 57.7 % (16.0-70.0); PLATELET COUNT 257 TH/MM3 (150-450)
[2017-11-24 22:54] LABS: OVALOCYTES 1+ (NORMAL)
--- NOTE | 2017-11-24 23:10 | MP ---
cc: MIRNA RAMIREZ MD DATE OF SURGERY: 11/24/2017 PREOPERATIVE DIAGNOSIS: 1. Access related hand ischemia, left upper extremity, with digital gangrene. 2. Right lower extremity tissue loss with peripheral arterial occlusive disease. POSTOPERATIVE DIAGNOSIS 1. Access related hand ischemia, left upper extremity, with digital gangrene. 2. Right lower extremity tissue loss with peripheral arterial occlusive disease. PROCEDURE 1. Thoracic aortogram with left upper extremity angiogram. 2. Abdominal aortogram with right lower extremity angiogram. ATTENDING SURGEON: Mirna Ramirez MD. CRANBERRY BOG SUPERVISOR SURGEON Libby Franco ANESTHESIA General INDICATIONS Ms. Tavares is a lady with end-stage renal disease and peripheral arterial occlusive disease. She is an inpatient consult for right lower extremity tissue loss and at the time of my initial consultation, the patient also complained of left upper extremity tissue loss. She has end-stage renal disease with a patent fistula in the left upper extremity. She is taken to the operating room for angiographic evaluation and potential treatment of both her left upper extremity and right lower extremity. There is no prior catheter-based imaging available for my review. DESCRIPTION OF PROCEDURE Informed consent obtained from the patient. She was taken to the operating room and placed supine on the operating room table. Appropriate time out was taken to ensure the patient's identity, operative site and planned procedure. A gram of vancomycin was initiated prior to the skin incision. This will be discontinued after a single preoperative dose. Vancomycin was chosen because of the patient's end-stage renal disease. Everyone in the room agreed with the time out and we proceed. Her bilateral groins prepped and draped and the left groin was accessed with an 21 gauge micropuncture needle. This was exchanged using Seldinger technique for micropuncture sheath through which a 0.035 Storq wire was introduced. The micropuncture sheath was exchanged for a 6-Vietnamese sheath and the pigtail catheter was advanced over this. The patient was systemically heparinized with 3000 units of IV heparin. The Storq and pigtail catheter was advanced to the ascending aorta and the thoracic aortogram was obtained. The Glidewire was introduced through the pigtail and exchanged for the Storq and the pigtail was exchanged for a vertebral catheter. This was used to catheterize the left subclavian, axillary and proximal brachial arteries and the left upper extremity arteriogram was obtained. The Glidewire was reintroduced and the glide and the vertebral catheter removed, and a VCF catheter was inserted. An abdominal aortogram was obtained. The Glidewire was reintroduced and navigated down to the right common femoral artery. The VCF catheter was advanced over this and the right lower extremity arteriogram was obtained. The patient is heparinized with 2000 additional units IV heparin. A 0.025 Storq wire was introduced. The VCF catheter and short 6-Vietnamese sheath removed and a 6-Vietnamese 55 cm sheath was then introduced. We were able to cannulate the right SFA but not beyond 2 cm from its origin. The wire, catheter and sheath removed and the groin was closed with an AngioSeal. There no complications. I was present and scrubbed and performed the entire procedure. INTERPRETATION OF IMAGES The patient has a patent three-vessel aortic arch with patent left subclavian axillary brachial arteries. The fistula was widely patent, in fact, somewhat aneurysmal with an outflow stent in the axillary vein. There is minimal forearm opacification noted. In the abdominal aorta, there is a patent infrarenal abdominal aorta with patent common iliac arteries, hypogastric arteries, and external iliac arteries bilaterally. The right common femoral artery is patent except distally there is a high-grade calcific border like stenosis. There is a proximal profunda stenosis and a proximal SFA stenosis. The SFA occludes 2 cm after its origin. Profunda base collaterals give rise to the below knee popliteal artery, and then there is reasonable runoff below this. MD ANDERS Barlow/CHA /8:08 PM /9:53 PM
[2017-11-25] VITALS (8 sets, daily range): BP systolic 90–139; BP diastolic 44–71; PULSE 67–83; RESP 12–24; TEMP 98.4–98.7; O2SAT 100
[2017-11-25] MEDS: PHENYLEPHRINE 40 MG in D5W 500 ML IV PRN (04:27)
[2017-11-25 05:19] LABS: BASOPHIL # 0.1 TH/MM3 (0-0.2); BASOPHIL % 0.9 % (0.0-2.0); EOSINOPHIL # 0.4 TH/MM3 (0-0.4); EOSINOPHIL % 3.7 % (0.0-4.0); HEMATOCRIT 34.4 % (35.0-46.0); HEMOGLOBIN 10.5 GM/DL (11.6-15.3); LYMPH % 17.4 % (9.0-44.0); LYMPHOCYTE # 1.8 TH/MM3 (1.0-4.8); MEAN CELL VOLUME 92.6 FL (80.0-100.0); MEAN CORPUSCULAR HEMOGLOBIN 28.4 PG (27.0-34.0); MEAN CORPUSCULAR HGB CONC 30.6 % (32.0-36.0); MONO % 19.2 % (0.0-8.0); NEUT % 58.8 % (16.0-70.0); PLATELET COUNT 263 TH/MM3 (150-450); RED BLOOD COUNT 3.72 MIL/MM3 (4.00-5.30); RED CELL DISTRIBUTION WIDTH 15.9 % (11.6-17.2); WHITE BLOOD COUNT 10.2 TH/MM3 (4.0-11.0)
[2017-11-25 05:30] LABS: ALBUMIN 2.5 GM/DL (3.4-5.0); AST (GOT) 46 U/L (15-37); BICARBONATE 26.7 MEQ/L (21.0-32.0); BLOOD UREA NITROGEN 59 MG/DL (7-18); CALCIUM 9.2 MG/DL (8.5-10.1); CHLORIDE 96 MEQ/L (98-107); GLOMERULAR FILTRATION RATE 5 ML/MIN (>89); GLUCOSE,RANDOM 137 MG/DL (74-106); MAGNESIUM 2.6 MG/DL (1.5-2.5); SODIUM (NA) 135 MEQ/L (136-145)
[2017-11-25 05:36] LABS: CREATININE 10.33 MG/DL (0.50-1.00)
[2017-11-25 05:40] LABS: ALKALINE PHOSPHATASE 118 U/L (45-117); ALT (GPT) 27 U/L (10-53); FREE T4 1.18 NG/DL (0.76-1.46); PHOSPHORUS 8.6 MG/DL (2.5-4.9); TOTAL BILIRUBIN ADULT 0.4 MG/DL (0.2-1.0); TOTAL PROTEIN 7.7 GM/DL (6.4-8.2)
[2017-11-25] MEDS ORDERED: SODIUM CHLORID 0.9% 500 ML INJ 250 ML IV ONE (05:40)
[2017-11-25] MEDS ORDERED: ALBUMIN 25% INJ 50 ML IV ONE (06:30)
--- NOTE | 2017-11-25 07:23 | PD.VS.PN ---
Subjective Subjective/Hospital Course POD#1 s/p L UE angiogram and R LE angiogram Hypotensive overnight req selene, but not lightheaded c/o R foot and L hand pain Objective Vitals/I&O Date Time Temp Pulse Resp B/P (MAP) Pulse Ox O2 Delivery O2 Flow Rate FiO2 11/25/17 04:27 71 123/58 11/24/17 22:59 98.9 74 18 145/56 (85) 11/24/17 21:11 100 Nasal Cannula 2.00 11/24/17 20:40 12 11/24/17 18:40 98.0 74 20 107/41 (63) 100 Nasal Cannula 2 11/24/17 18:30 74 20 107/41 (63) 100 Nasal Cannula 2 11/24/17 18:15 76 20 106/54 (71) 100 Nasal Cannula 2 11/24/17 18:12 74 106/44 11/24/17 18:00 73 20 88/46 (60) 100 Nasal Cannula 2 11/24/17 17:45 75 20 98/46 (63) 100 Nasal Cannula 2 11/24/17 17:22 98.6 82 20 88/61 (70) 100 Nasal Cannula 2 11/24/17 12:00 98.4 79 17 95/51 (66) 95 11/24/17 09:46 93 11/24/17 08:00 99.4 80 18 99/57 (71) 93 Physical Exam Resting comfortably no L groin hematoma R foot TL stable L UE TL stable Laboratory Laboratory Tests Test 11/24/17 21:49 11/25/17 04:47 White Blood Count 12.0 10.2 Red Blood Count 3.70 3.72 Hemoglobin 10.7 10.5 Hematocrit 33.8 34.4 Mean Corpuscular Volume 91.4 92.6 Mean Corpuscular Hemoglobin 28.8 28.4 Mean Corpuscular Hemoglobin Concent 31.5 30.6 Red Cell Distribution Width 16.0 15.9 Platelet Count 257 263 Mean Platelet Volume 9.3 9.0 Neutrophils (%) (Auto) 57.7 58.8 Lymphocytes (%) (Auto) 23.7 17.4 Monocytes (%) (Auto) 14.9 19.2 Eosinophils (%) (Auto) 2.8 3.7 Basophils (%) (Auto) 0.9 0.9 Neutrophils # (Auto) 6.9 6.0 Lymphocytes # (Auto) 2.8 1.8 Monocytes # (Auto) 1.8 2.0 Eosinophils # (Auto) 0.3 0.4 Basophils # (Auto) 0.1 0.1 CBC Comment AUTO DIFF AUTO DIFF Differential Comment AUTO DIFF CONFIRMED Ovalocytes 1+ Blood Urea Nitrogen 59 Creatinine 10.33 Random Glucose 137 Total Protein 7.7 Albumin 2.5 Calcium Level 9.2 Phosphorus Level 8.6 Magnesium Level 2.6 Alkaline Phosphatase 118 Aspartate Amino Transf (AST/SGOT) 46 Alanine Aminotransferase (ALT/SGPT) 27 Total Bilirubin 0.4 Sodium Level 135 Potassium Level 4.7 Chloride Level 96 Carbon Dioxide Level 26.7 Anion Gap 12 Estimat Glomerular Filtration Rate 5 Free Thyroxine 1.18 Thyroid Stimulating Hormone 3rd Gen 0.332 Date/Time Source Procedure Growth Status 11/20/17 22:55 Blood Peripheral Aerobic Blood Culture - Preliminary NO GROWTH IN 4 DAYS Resulted 11/20/17 22:55 Blood Peripheral Anaerobic Blood Culture - Preliminary NO GROWTH IN 4 DAYS Resulted Imaging Last 48 hours Impressions Chest X-Ray 11/24/17 0000 Signed Impressions: Service Date/Time: Friday, November 24, 2017 21:40 - CONCLUSION: Cardiomegaly with bilateral perihilar edema likely CHF. Noman Blevins MD Assessment and Plan Plan POD#1 s/p diagnostic angiography L UE and R LE 1. Wean selene - would tolerate modest hypotension given HD 2. Plan R LE bypass tomorrow () - discussed with patient today 3. Will ultimately need L UE DRIL but should wait until recovers from R LE revascularization 4. NPO after MN 5. T&C 2u PRBC Don Ramirez MD FACS RPVI [place] [employer] [facility] - Heart and Vascular Surgery at [facility] [phone] Don Ramirez MD Nov 25, 2017 07:23
--- NOTE | 2017-11-25 07:40 | PD.VS.PN ---
Pre-operative Note Pre-operative diagnosis: R LE tissue loss, PAD Planned procedure: R groin reconstruction and distal bypass Interval History: Pt has continued R LE pain. Angio yesterday showed long PAD more amenable to surgical reconstruction Labs: Laboratory Results Test 11/25/17 04:47 Anion Gap 12 MEQ/L (5-15) Blood Urea Nitrogen 59 MG/DL (7-18) Creatinine 10.33 MG/DL (0.50-1.00) Random Glucose 137 MG/DL (74-106) Total Protein 7.7 GM/DL (6.4-8.2) Albumin 2.5 GM/DL (3.4-5.0) Calcium Level 9.2 MG/DL (8.5-10.1) Phosphorus Level 8.6 MG/DL (2.5-4.9) Magnesium Level 2.6 MG/DL (1.5-2.5) Alkaline Phosphatase 118 U/L (45-117) Aspartate Amino Transf (AST/SGOT) 46 U/L (15-37) Alanine Aminotransferase (ALT/SGPT) 27 U/L (10-53) Total Bilirubin 0.4 MG/DL (0.2-1.0) Sodium Level 135 MEQ/L (136-145) Potassium Level 4.7 MEQ/L (3.5-5.1) Chloride Level 96 MEQ/L (98-107) Carbon Dioxide Level 26.7 MEQ/L (21.0-32.0) Hematocrit 34.4 % (35.0-46.0) Hemoglobin 10.5 GM/DL (11.6-15.3) Mean Corpuscular Hemoglobin 28.4 PG (27.0-34.0) Mean Corpuscular Hemoglobin Concent 30.6 % (32.0-36.0) Mean Corpuscular Volume 92.6 FL (80.0-100.0) Mean Platelet Volume 9.0 FL (7.0-11.0) Platelet Count 263 TH/MM3 (150-450) Red Blood Count 3.72 MIL/MM3 (4.00-5.30) Red Cell Distribution Width 15.9 % (11.6-17.2) White Blood Count 10.2 TH/MM3 (4.0-11.0) Blood: T&C 2U PRBC Imaging: Last Impressions Chest X-Ray 11/24/17 0000 Signed Impressions: Service Date/Time: Friday, November 24, 2017 21:40 - CONCLUSION: Cardiomegaly with bilateral perihilar edema likely CHF. Noman Blevins MD Lower Extremity Ultrasound 11/21/17 0000 Signed Impressions: Service Date/Time: Tuesday, November 21, 2017 08:32 - CONCLUSION: No DVT. Martin Deleon MD Aorta w/Runoff CTA 11/21/17 0000 Signed Impressions: Service Date/Time: Thursday, November 23, 2017 15:54 - CONCLUSION: 1. Moderate inflow stenosis on the right. Left inflow is calcified but patent. 2. Severe outflow and runoff disease bilaterally as detailed above discussion. 3. Enlarging right renal mass. This now measures 6.1 cm where previously measured 5.5 cm. The left kidney is atrophic. Trever Carballo Jr., MD Foot X-Ray 11/20/172032 Signed Impressions: Service Date/Time: Monday, November 20, 2017 20:44 - CONCLUSION: 1. Eopenia and osteophytic change. 2. No evidence to suggest osteomyelitis. Baudilio Schuster MD Orders: NPO after MN tonight 1g VANC IV OCTOR Post-operative destination: PACU, floor Operative site marked: Yes Consent: Informed consent has been obtained from Arlyn Tavares. I have explained the procedure in detail and discussed the risks, benefits, and potential complications. All questions have been answered. Don Ramirez MD Nov 25, 2017 07:40
[2017-11-25] MEDS: INSULIN ASPART SUPPLEMENTAL SCALE SQ SCH ×4 (08:00→21:00)
[2017-11-25] MEDS: SEVELAMER CARBONATE 800 MG TAB PO SCH ×3 (08:00→17:00)
[2017-11-25 08:03] LABS: BASOPHILS 5 % (0-2); CORRECTED NUCLEATED RBC 2 /100 WBC (0-0); LYMPHOCYTES 13 % (9-44); MONOCYTES 17 % (0-8); NEUTROPHIL # MANUAL DIFF 6.3 TH/MM3 (1.8-7.7); NUCLEATED RED BLOOD CELL 2 (0-0); POLYS (SEG NEUTROPHILS) 62 % (16-70)
[2017-11-25] MEDS: GABAPENTIN 100 MG CAP PO SCH ×3 (08:49→17:21)
[2017-11-25] MEDS: CEFEPIME INJ 1,000 MG in SODIUM CHLORIDE 0.9% INJ 100 ML IV SCH (08:50)
[2017-11-25] MEDS: SODIUM CHLORIDE 0.9% FLUSH 10 ML FLUSH IV FLUSH SCH ×2 (08:50→20:01)
[2017-11-25] MEDS: DOCUSATE SODIUM 50 MG/SENNA 8.6 MG TAB PO SCH ×2 (08:50→20:01)
[2017-11-25] MEDS: HYDROXYCHLOROQUINE SULFATE 200 MG TAB PO SCH (08:50)
[2017-11-25] MEDS: CLOPIDOGREL 75 MG TAB PO SCH (08:50)
[2017-11-25] MEDS: ASPIRIN 81 MG CHEW TAB PO SCH (08:50)
[2017-11-25] MEDS: FOLIC ACID 1 MG TAB PO SCH (08:50)
[2017-11-25] MEDS: HEPARIN SODIUM - SQ 10,000 UNITS/ML VIAL SQ SCH ×2 (08:51→20:01)
[2017-11-25] MEDS: PANTOPRAZOLE SOD 40 MG DELAYED RELEASE TAB PO SCH (08:51)
[2017-11-25] MEDS: ALBUMIN 25% INJ 100 ML IV PRN (09:26)
[2017-11-25] MEDS: GELATIN 12 MM/7 MM FOAM TOP PRN (10:43)
[2017-11-25] MEDS: EPOETIN ALFA 10,000 UNITS/ML VIAL IV PUSH PRN (10:44)
[2017-11-25] MEDS: ACETAMINOPHEN/HYDROcodone 325 MG/10 MG TAB PO PRN ×3 (10:50→20:01)
[2017-11-25] MEDS: MORPHINE SULFATE 2 MG/ML INJ IV PUSH PRN (11:48)
--- NOTE | 2017-11-25 12:18 | EKG ---
Date Performed: 11/25/2017 Time Performed: 09:41:19 PTAGE: 57 years EKG: Sinus rhythm WITH FREQUENT SUPRAVENTRICULAR PREMATURE COMPLEXES POSSIBLE LEFT ATRIAL ENLARGEMENT INFERIOR MYOCARD IAL INFARCTION , OF INDETERMINATE AGE MODERATE T-WAVE ABNORMALITY, CONSIDER ANTERIOR ISCHEMIA ABNORMA L ECG PREVIOUS TRACING : 11/20/2017 21.33 DOCTOR: Adrien Day Interpretating Date/Time 11/25/2017 12:16:26
--- NOTE | 2017-11-25 12:50 | HHI.NPPN ---
Subjective General Problems: Anemia Renal Failure: Chronic, End Stage Renal Disease Interval History She was transferred to [facility] for hypotension post angiogram. On Phenylephrine. Due for bypass of lower extremity tomorrow. Seen during dialysis. ([place]) Review of Systems General Constitutional: Fatigue ([place]) Musculoskeletal MS: Pain/Stiffness MS Remarks right foot pain ([place]) Objective Data Data Vital Signs Date Time Temp Pulse Resp B/P (MAP) Pulse Ox O2 Delivery O2 Flow Rate FiO2 11/25/17 11:06 100 Nasal Cannula 2.00 11/25/17 08:00 98.7 67 12 108/44 (65) 100 11/25/17 04:27 71 123/58 11/24/17 22:59 98.9 74 18 145/56 (85) 11/24/17 21:11 100 Nasal Cannula 2.00 11/24/17 20:40 12 11/24/17 18:40 98.0 74 20 107/41 (63) 100 Nasal Cannula 2 11/24/17 18:30 74 20 107/41 (63) 100 Nasal Cannula 2 11/24/17 18:15 76 20 106/54 (71) 100 Nasal Cannula 2 11/24/17 18:12 74 106/44 11/24/17 18:00 73 20 88/46 (60) 100 Nasal Cannula 2 11/24/17 17:45 75 20 98/46 (63) 100 Nasal Cannula 2 11/24/17 17:22 98.6 82 20 88/61 (70) 100 Nasal Cannula 2 ([place]) -: 11/25/17 0447 11/25/17 0447 Imaging Last 72 hours Impressions Chest X-Ray 11/24/17 0000 Signed Impressions: Service Date/Time: Friday, November 24, 2017 21:40 - CONCLUSION: Cardiomegaly with bilateral perihilar edema likely CHF. Noman Blevins MD Chest X-Ray 11/23/17 0000 Signed Impressions: Service Date/Time: Thursday, November 23, 2017 10:14 - CONCLUSION: No acute disease. Martin Deleon MD Drip Comment phenylephrine. ([place]) Physical Exam General Appearance: Well Developed, No Acute Distress, Malnourished ([place] B. DETECTIVE SERGEANT) Eyes Eye Exam: Pupils Equal ([place] B. [employer]ECTIVE [employer]GEANT) Throat Throat Exam: Oral Mucosa [place] & Moist ([place] B. [employer]ECTIVE SERGEANT) Neck Neck Exam: Neck Supple ([place] B. [employer]ECTIVE SERGEANT) Pulmonary Resp Exam: Clear Bilaterally, Breath Sounds Equal ([place] B. [employer]ECTIVE SERGEANT) Cardiology CV Exam: Regular, Normal Sinus Rhythm ([place] B. [employer]ECTIVE SERGEANT) Gastrointestinal/Abdomen GI Exam: Soft, Non-Tender, Bowel Sounds Present ([place] B. [employer]ECTIVE SERGEANT) Musculoskeletal MS Exam: Normal Tone, Atrophy MS Remarks right foot with poor pulses. New nodule medial side, not fluctuant. Painful. ([place] B. [employer]ECTIVE SERGEANT) Integumentary Skin Exam: Warm, Dry ([place] B. [employer]ECTIVE SERGEANT) Extremeties Extremities Exam: No Edema ([place] B. [employer]ECTIVE [employer]GE[employer]) Neurologic Neuro Exam: Alert, Awake, Oriented, Speech Clear, Moving All Extremities ([place] B. [employer]ECTIVE SERGEANT) Psychiatric Psych Exam: Appropriate Responses ([place] B. [employer]ECTIVE SERGEANT) Assessment/Plan Discussed Condition With: Patient Assessment Summary: Anemia of CKD, Secndry Hyperparathyroid, Malnutrition, Hypotension, End Stage Renal Disease Problem List: (1) ESRD (end stage renal disease) on dialysis ICD Codes: N18.6 - End stage renal disease; Z99.2 - Dependence on renal dialysis Status: Chronic Plan: Seen during dialysis today on a 2K, 350 BFR, goal 1L Continue HD MWF, Avoid Gadolinium. Avoid IVF administration. Monitor fluid and electrolytes. High protein diet. Continue binder therapy with Renvela; evaluate phosphorus intermittently. Ween off pressor support if able. (2) DM (diabetes mellitus) ICD Codes: E11.9 - Type 2 diabetes mellitus without complications Status: Chronic Plan: Continue insulin coverage. Maintain glucose 140-180 mg/dL. (3) Metabolic bone disease ICD Codes: E88.9 - Metabolic disorder, unspecified; M90.80 - Osteopathy in diseases classified elsewhere, unspecified site Status: Acute Plan: Her diet is high protein, low phosphorus. On Renvela. (4) Gangrene of foot ICD Codes: I96 - Gangrene, not elsewhere classified Status: Acute Plan: Continue Wound care Vascular surgery is following, due for bypass of left leg tomorrow. Consider podiatry evaluation as well. She also has ischemia of the access hand. Will need DRIL procedure. (5) Anemia of renal disease ICD Codes: D63.1 - Anemia in chronic kidney disease Status: Chronic Plan: hemoglobin is currently acceptable, monitor. Epogen as needed. ([place]) Plan patient was seen and examined. Agree with above assessment and plan. Seen during dialysis. (Nazario Ahumada MD) [place] Nov 25, 2017 12:50 Nazario Ahumada MD Nov 25, 2017 17:59
--- NOTE | 2017-11-25 14:35 | HHI.CCPN ---
Subjective Remarks/Hospital Course 57-year-old female with past medical history of diabetes, hypertension, hyperlipidemia, coronary artery disease with prior stents, chronic systolic heart failure (EF 30-35%), end-stage renal disease on hemodialysis Thursday/Thursday/Thursday, peripheral neuropathy, chronic anemia who presented to to [facility] with two week history of right foot pain and drainage. She was admitted to to the hospitalist service and started on cefepime. Today she has undergone an aortogram with upper and lower extremity angiogram by Dr. Vazquez. Intraoperatively she received 250 of crystalloid. No EBL. She received general anesthesia, fentanyl 50 g IV, propofol, morphine 4 mg IV. She underwent dialysis yesterday with 1 kg removal. She was started on phenylephrine during the case and remains on this vasopressor. Was initially at 70 mcg/m upon arrival to [facility]. Now at 50 mcg/m. She denies CP/SOB 11/25/17: remains on brennen-synephrine at 50 mcg/min to keep MAP >65. Very tender to touch on right foot and left hand. OR with Dr. vazquez tomorrow for RLE revascularization. POD#1 diagnostic angiography L UE and R LE. Per Dr. Vazquez, will need Left UE DRIL (distal revascularization interval ligation) after recovery from R LE revascularization Objective Vital Signs Date Time Temp Pulse Resp B/P (MAP) Pulse Ox O2 Delivery O2 Flow Rate FiO2 11/25/17 12:00 75 11/25/17 12:00 98.4 23 90/65 (73) 100 11/25/17 11:06 Nasal Cannula 2.00 11/23/17 17:36 21 Result Diagram: 11/25/17 0447 11/25/17 0447 Objective Remarks GENERAL: Pleasant female who is laying in [facility] bed. On nasal cannula. SKIN: Warm and dry. HEAD: Atraumatic. Normocephalic. EYES: Pupils equal and round, 2 mm reactive.. No scleral icterus. No injection or drainage. ENT: No nasal bleeding or discharge. Mucous membranes pink and moist. NECK: Trachea midline. No JVD. CARDIOVASCULAR: Regular rate and rhythm, sinus rhythm on the monitor with rate in the 70s.. No murmurs rubs or gallops. Hypotensive on 50 mcg/m of Brennen- Synephrine RESPIRATORY: Breathing comfortably with no accessory muscle use. Clear to auscultation. GASTROINTESTINAL: Abdomen soft, non-tender, nondistended. Bowel sounds present. No hepatomegaly. MUSCULOSKELETAL/VASCULAR: AV fistula in left upper arm with palpable thrill. There is necrosis overlying distal phalanx of left fourth digit. There is necrosis of 2nd, 3rd and 5th digit of right foot. No drainage. R leg - palpable femoral, dopplerable popliteal, dopplerable monophasic pulse R DP. Left leg- palpable femoral, popliteal and weakly palpable DP pulse, dopplerable L MOTOR ANALYST. NEUROLOGICAL: Awake and alert. No obvious cranial nerve deficits. Motor grossly within normal limits. . Normal speech. A/P Problem List: (1) ESRD (end stage renal disease) on dialysis ICD Code: N18.6 - End stage renal disease; Z99.2 - Dependence on renal dialysis Status: Chronic (2) Gangrene of foot ICD Code: I96 - Gangrene, not elsewhere classified Status: Acute (3) Anemia of renal disease ICD Code: D63.1 - Anemia in chronic kidney disease Status: Chronic (4) DM (diabetes mellitus) ICD Code: E11.9 - Type 2 diabetes mellitus without complications Status: Chronic (5) Hypertension ICD Code: I10 - Essential (primary) hypertension Status: Chronic (6) CAD (coronary artery disease) ICD Code: I25.10 - Atherosclerotic heart disease of [place] coronary artery without angina pectoris Status: Chronic (7) Hypotension ICD Code: I95.9 - Hypotension, unspecified Assessment and Plan NEURO: Peripheral neuropathy Gabapentin 100 mg by mouth 3 times a day RESP: Nasal cannula wean as tolerated Incentive spirometry every hour awake Postop chest x-ray-mild pulmonary edema CV: Peripheral arterial disease Coronary artery disease with prior stents Essential hypertension at baseline Hyperlipidemia Hold Cardura 10 mg by mouth daily at bedtime. Hold metoprolol 25 mg by mouth twice a day. Brennen-Synephrine to maintain mean arterial pressure greater than 65, hypotension post-anesthesia. s/p aortogram and angiogram 11/[address] Vazquez - tentative plan for RLE bypass . GAMA WALLER at a later date. plaquenil 200 mg daily Plavix 75 mg daily Aspirin 161 mg by mouth daily GI: Renal diet. NPO thu at midnight for bypass. FEN/RENAL: ESRD Hemodialysis Thursday/Thursday/Thursday per nephrology. Scheduled for dialysis today 11/25 Renvela 2400 mg by mouth 3 times a day ID: Gangrene toes right foot, left finger. Blood cultures from 11/20 no growth to date On cefepime 1 g IV every 24 hours. Wound care following. Management per Dr. Vazquez. HEME: Chronic anemia Erythropoietin 5000 units with dialysis Folic acid 1 mg by mouth daily ENDO: Diabetes mellitus, type II Low-dose insulin sliding scale AC/hs PROPH: Heparin 5000 subcutaneous to 12 for DVT prophylaxis. Protonix 40 mg by mouth daily for stress ulcer prophylaxis. ACCESS: PIV providing adequate access at this time. Level III Remains critically ill but stable, wean Brennen-Synephrine as tolerated Problem Qualifiers (1) Hypertension: Qualified Codes: I10 - Essential (primary) hypertension Caty Salazar MD Nov 25, 2017 14:35
[2017-11-26] VITALS (12 sets, daily range): BP systolic 127–138; BP diastolic 54–71; PULSE 72–88; RESP 10–15; TEMP 97.4–98.7; O2SAT 99–100
[2017-11-26] MEDS: ACETAMINOPHEN/HYDROcodone 325 MG/10 MG TAB PO PRN (04:23)
[2017-11-26 05:53] LABS: AUTOMATED NEUTROPHIL # 5.6 TH/MM3 (1.8-7.7); BASOPHIL # 0.1 TH/MM3 (0-0.2); BASOPHIL % 0.8 % (0.0-2.0); EOSINOPHIL # 0.4 TH/MM3 (0-0.4); EOSINOPHIL % 4.4 % (0.0-4.0); HEMATOCRIT 30.2 % (35.0-46.0); HEMOGLOBIN 9.6 GM/DL (11.6-15.3); LYMPH % 13.4 % (9.0-44.0); LYMPHOCYTE # 1.1 TH/MM3 (1.0-4.8); MEAN CELL VOLUME 91.9 FL (80.0-100.0); MEAN CORPUSCULAR HEMOGLOBIN 29.4 PG (27.0-34.0); MEAN PLATELET VOLUME 8.9 FL (7.0-11.0); MONO % 14.5 % (0.0-8.0); MONOCYTE # 1.2 TH/MM3 (0-0.9); NEUT % 66.9 % (16.0-70.0); PLATELET COUNT 219 TH/MM3 (150-450); RED BLOOD COUNT 3.28 MIL/MM3 (4.00-5.30); RED CELL DISTRIBUTION WIDTH 16.5 % (11.6-17.2); WHITE BLOOD COUNT 8.4 TH/MM3 (4.0-11.0)
--- NOTE | 2017-11-26 06:09 | RADRPT ---
EXAM DATE/TIME: 11/26/2017 05:40 [place] COMPARISON: CHEST SINGLE AP, November 24, 2017, 21:40. INDICATIONS : Respiratory disease. MEDICAL HISTORY : Hypertension. Diabetes mellitus type II. SURGICAL HISTORY : None. ENCOUNTER: Subsequent ACUITY: 1 week PAIN SCORE: 0/10 LOCATION: Bilateral chest FINDINGS: Single portable frontal view the chest shows myocardium. Bilateral pulmonary infiltrates are diffuse in nature and unchanged. No effusions. Bony structures are unremarkable. CONCLUSION: Cardiomegaly with bilateral pulmonary infiltrates are unchanged. Trever Carballo Jr., MD on November 26, 2017 at 6:07 Board Certified Radiologist. This report was verified electronically.
[2017-11-26 06:17] LABS: ALBUMIN 3.1 GM/DL (3.4-5.0); ALKALINE PHOSPHATASE 113 U/L (45-117); ALT (GPT) 28 U/L (10-53); AST (GOT) 43 U/L (15-37); BICARBONATE 28.8 MEQ/L (21.0-32.0); BLOOD UREA NITROGEN 34 MG/DL (7-18); CALCIUM 9.3 MG/DL (8.5-10.1); CHLORIDE 96 MEQ/L (98-107); CREATININE 7.28 MG/DL (0.50-1.00); GLOMERULAR FILTRATION RATE 7 ML/MIN (>89); GLUCOSE,RANDOM 110 MG/DL (74-106); SODIUM (NA) 135 MEQ/L (136-145); TOTAL BILIRUBIN ADULT 0.4 MG/DL (0.2-1.0); TOTAL PROTEIN 8.1 GM/DL (6.4-8.2)
[2017-11-26 07:51] LABS: BANDS 3 % (0-6); CORRECTED NUCLEATED RBC 3 /100 WBC (0-0); LYMPHOCYTES 18 % (9-44); MONOCYTES 16 % (0-8); NEUTROPHIL # MANUAL DIFF 5.1 TH/MM3 (1.8-7.7); NUCLEATED RED BLOOD CELL 3 (0-0); OVALOCYTES 1+ (NORMAL); POLYS (SEG NEUTROPHILS) 58 % (16-70)
[2017-11-26] MEDS: SEVELAMER CARBONATE 800 MG TAB PO SCH ×3 (08:00→17:00)
[2017-11-26] MEDS: INSULIN ASPART SUPPLEMENTAL SCALE SQ SCH ×4 (08:00→21:00)
[2017-11-26] MEDS: DOCUSATE SODIUM 50 MG/SENNA 8.6 MG TAB PO SCH ×2 (08:51→21:25)
[2017-11-26] MEDS: HYDROXYCHLOROQUINE SULFATE 200 MG TAB PO SCH (08:53)
[2017-11-26] MEDS: HEPARIN SODIUM - SQ 10,000 UNITS/ML VIAL SQ SCH ×2 (08:54→09:49)
[2017-11-26] MEDS: PANTOPRAZOLE SOD 40 MG DELAYED RELEASE TAB PO SCH (08:54)
[2017-11-26] MEDS: FOLIC ACID 1 MG TAB PO SCH (08:55)
[2017-11-26] MEDS: SODIUM CHLORIDE 0.9% FLUSH 10 ML FLUSH IV FLUSH SCH ×2 (09:00→21:25)
[2017-11-26] MEDS: CEFEPIME INJ 1,000 MG in SODIUM CHLORIDE 0.9% INJ 100 ML IV SCH (09:34)
[2017-11-26] MEDS: ACETAMINOPHEN/HYDROcodone 325 MG/5 MG TAB PO PRN (09:42)
[2017-11-26] MEDS: ASPIRIN 81 MG CHEW TAB PO SCH (09:43)
[2017-11-26] MEDS: CLOPIDOGREL 75 MG TAB PO SCH (09:43)
[2017-11-26] MEDS: GABAPENTIN 100 MG CAP PO SCH ×3 (09:43→17:48)
--- NOTE | 2017-11-26 11:35 | HHI.NPPN ---
Subjective General Problems: Anemia Renal Failure: Chronic, End Stage Renal Disease Interval History NPO for bypass surgery today. Dialyzed yesterday. (Chantale East) Review of Systems General Constitutional: Fatigue (Chantale East) Musculoskeletal MS: Pain/Stiffness MS Remarks right foot pain (Chantale East) Objective Data Data Vital Signs Date Time Temp Pulse Resp B/P (MAP) Pulse Ox O2 Delivery O2 Flow Rate FiO2 11/26/17 08:25 99 11/26/17 06:00 77 11/26/17 04:00 74 11/26/17 04:00 98.3 74 14 134/70 (91) 100 11/26/17 02:00 77 11/26/17 00:00 98.5 77 15 127/71 (89) 100 11/26/17 00:00 77 11/25/17 22:00 72 11/25/17 21:01 11 11/25/17 20:00 77 11/25/17 20:00 100 Nasal Cannula 2.00 11/25/17 20:00 98.5 77 19 124/71 (88) 100 11/25/17 18:15 77 120/59 11/25/17 18:00 77 11/25/17 16:00 98.7 76 24 139/69 (92) 100 11/25/17 16:00 83 11/25/17 14:00 68 11/25/17 12:00 75 11/25/17 12:00 98.4 77 23 90/65 (73) 100 (Chantale East) -: 11/26/17 0510 11/26/17 0510 Imaging Last 72 hours Impressions Chest X-Ray 11/26/17 0600 Signed Impressions: Service Date/Time: November 05:40 - CONCLUSION: Cardiomegaly with bilateral pulmonary infiltrates are unchanged. Trever Carballo Jr., MD Chest X-Ray 11/24/17 0000 Signed Impressions: Service Date/Time: Friday, November 24, 2017 21:40 - CONCLUSION: Cardiomegaly with bilateral perihilar edema likely CHF. Noman Blevins MD ([place]) Physical Exam General Appearance: Well Developed, No Acute Distress, Malnourished (Chantale East B. PRESCHOOL ASSISTANT PRINCIPAL) Eyes Eye Exam: Pupils Equal (Chantale East B. PRESCHOOL ASSISTANT PRINCIPAL) Throat Throat Exam: Oral Mucosa [place] & Moist (Chantale East B. PRESCHOOL ASSISTANT PRINCIPAL) Neck Neck Exam: Neck Supple (Rodrigo Easton B. PRESCHOOL ASSISTANT PRINCIPAL) Pulmonary Resp Exam: Clear Bilaterally, Breath Sounds Equal (Rodrigo Easton B. PRESCHOOL ASSISTANT PRINCIPAL) Cardiology CV Exam: Regular, Normal Sinus Rhythm (Chantale East B. PRESCHOOL ASSISTANT PRINCIPAL) Gastrointestinal/Abdomen GI Exam: Soft, Non-Tender, Bowel Sounds Present (Rodrigo Easton B. PRESCHOOL ASSISTANT PRINCIPAL) Musculoskeletal MS Exam: Normal Tone, Atrophy MS Remarks right foot with poor pulses. New nodule medial side, not fluctuant. Painful. (Chantale East B. PRESCHOOL ASSISTANT PRINCIPAL) Integumentary Skin Exam: Warm, Dry (Chantale East B. PRESCHOOL ASSISTANT PRINCIPAL) Extremeties Extremities Exam: No Edema (Chantale East B. PRESCHOOL ASSISTANT PRINCIPAL) Neurologic Neuro Exam: Alert, Awake, Oriented, Speech Clear, Moving All Extremities (Rodrigo Easton B. PRESCHOOL ASSISTANT PRINCIPAL) Psychiatric Psych Exam: Appropriate Responses (Chantale East B. PRESCHOOL ASSISTANT PRINCIPAL) Assessment/Plan Discussed Condition With: Patient Assessment Summary: Anemia of CKD, [place] Hyperparathyroid, Malnutrition, Hypotension, End Stage Renal Disease Problem List: (1) ESRD (end stage renal disease) on dialysis ICD Codes: N18.6 - End stage renal disease; Z99.2 - Dependence on renal dialysis Status: Chronic Plan: Dialyzed yesterday, due tomorrow Continue HD MWF, Avoid Gadolinium. Avoid IVF administration. Monitor fluid and electrolytes. High protein diet. Continue binder therapy with Renvela; evaluate phosphorus intermittently. (2) DM (diabetes mellitus) ICD Codes: E11.9 - Type 2 diabetes mellitus without complications Status: Chronic Plan: NPO, start D10@20. Continue insulin coverage when diet is restarted. Maintain glucose 140-180 mg/dL. (3) Metabolic bone disease ICD Codes: E88.9 - Metabolic disorder, unspecified; M90.80 - Osteopathy in diseases classified elsewhere, unspecified site Status: Acute Plan: Her diet is high protein, low phosphorus. On Renvela. (4) Gangrene of foot ICD Codes: I96 - Gangrene, not elsewhere classified Status: Acute Plan: Continue Wound care Vascular surgery is following, due for bypass of left leg tomorrow. Consider podiatry evaluation as well. She also has ischemia of the access hand. Will need DRIL procedure. (5) Anemia of renal disease ICD Codes: D63.1 - Anemia in chronic kidney disease Status: Chronic Plan: hemoglobin is currently acceptable, monitor. Epogen as needed. (Chantale East) Plan patient was seen and examined. Agree with above assessment and plan. (Nazario Ahumada MD) Chantale East Nov 26, 2017 11:35 Nazario Ahumada MD Nov 26, 2017 15:15
[2017-11-26] MEDS: DEXTROSE 10% INJ 500 ML IV SCH (11:45)
[2017-11-26] MEDS ORDERED: MORPHINE SULFATE 4 MG/ML INJ ONE (12:28)
[2017-11-26] MEDS ORDERED: HEPARIN SODIUM - IV 10,000 UNITS/10 ML VIAL ONE (12:29)
[2017-11-26] MEDS ORDERED: VANCOMYCIN HCL 1000 MG VIAL ONE (12:29)
[2017-11-26] MEDS ORDERED: PROTAMINE SULFATE 50 MG/5 ML VIAL ONE (12:29)
[2017-11-26] MEDS ORDERED: BUPIVACAINE HCL PF 0.5% 30 ML VIAL ONE (12:29)
[2017-11-26] MEDS ORDERED: HEPARIN-NS/PF INJ 500 ML ONE (12:29)
[2017-11-26] MEDS ORDERED: THROMBIN (TOPICAL) 20,000 UNIT SPRAY KIT ONE (13:45)
[2017-11-26] MEDS ORDERED: ONDANSETRON HCL 4 MG/2 ML VIAL IV PUSH ONE (13:51)
[2017-11-26] MEDS ORDERED: PROPOFOL 200 MG/20 ML AMP IV ONE (13:51)
[2017-11-26] MEDS ORDERED: ePHEDrine/NS 25 MG/5 ML SYRINGE IV ONE (13:51)
[2017-11-26] MEDS ORDERED: ROCURONIUM INJ 50 MG/5 ML SYRINGE IV PUSH ONE (13:51)
[2017-11-26] MEDS ORDERED: LIDOCAINE HCL 1% PF 5 ML SYRINGE OTHER ONE (13:51)
[2017-11-26] MEDS ORDERED: GLYCOPYRROLATE 1 MG/5 ML SYRINGE IV PUSH ONE (13:51)
[2017-11-26] MEDS ORDERED: NEOSTIGMINE 5 MG/5 ML SYRINGE IV PUSH ONE (13:51)
[2017-11-26] MEDS ORDERED: NS 500 ML (EXCEL BAG) INJ 1,000 ML IV ONE (13:51)
[2017-11-26] MEDS ORDERED: HEPARIN SODIUM - SQ 10,000 UNITS/ML VIAL SQ SCH (15:30)
--- NOTE | 2017-11-26 16:01 | HHI.PR ---
cc: Don Ramirez MD Immediate Post Op Note Procedure Date: Nov 26, 2017 Pre Op Diagnosis: R LE tissue loss, PAD Post Op Diagnosis: R LE tissue loss, PAD Surgeon: Don Ramirez Vegetable Trimmer(s): Martin Paul Procedure: 1. R iliofemoral bypass (8mm Dacron) 2. R fem-BK pop bypass (cryo) Findings: very calcified arteries Additional Information: + AT signal after case Complications: none apparent Specimen(s) removed: none for pathology Estimated blood loss: 100mL Anesthesia: General Drains: None Fluids: 500mL IVF Patient to: PACU Patient Condition: Good Implant/Devices: SEE IMPLANT LOG (if applicable) Date/Time of Procedure: SEE SURGICAL CARE RECORD Don Ramirez MD Nov 26, 2017 16:01
[2017-11-26] MEDS ORDERED: DO NOT ADM ANY ANTICOAGULANT DRUGS PRN (17:15)
--- NOTE | 2017-11-26 17:30 | HHI.CCPN ---
Subjective Remarks/Hospital Course 57-year-old female with past medical history of diabetes, hypertension, hyperlipidemia, coronary artery disease with prior stents, chronic systolic heart failure (EF 30-35%), end-stage renal disease on hemodialysis Thursday/Thursday/Thursday, peripheral neuropathy, chronic anemia who presented to to [facility] with two week history of right foot pain and drainage. She was admitted to to the hospitalist service and started on cefepime. Today she has undergone an aortogram with upper and lower extremity angiogram by Dr. Vazquez. Intraoperatively she received 250 of crystalloid. No EBL. She received general anesthesia, fentanyl 50 g IV, propofol, morphine 4 mg IV. She underwent dialysis yesterday with 1 kg removal. She was started on phenylephrine during the case and remains on this vasopressor. Was initially at 70 mcg/m upon arrival to [facility]. Now at 50 mcg/m. She denies CP/SOB 11/25/17: remains on brennen-synephrine at 50 mcg/min to keep MAP >65. Very tender to touch on right foot and left hand. OR with Dr. vazquez tomorrow for RLE revascularization. POD#1 diagnostic angiography L UE and R LE. Per Dr. Vazquez, will need Left UE DRIL (distal revascularization interval ligation) after recovery from R LE revascularization 11/26/17: Patient seen after OR. Off neosynephrine. Underwent R iliofemoral bypass and R fem-pop bypass by Dr. Vazquez. Complaints of postop pain Objective Vital Signs Date Time Temp Pulse Resp B/P (MAP) Pulse Ox O2 Delivery O2 Flow Rate FiO2 11/26/17 12:35 98.2 79 15 151/72 (98) 100 11/26/17 12:35 Nasal Cannula 3 11/23/17 17:36 21 Intake and Output 11/26/17 11/26/17 11/27/17 08:00 16:00 00:00 Intake Total 240 ml 500 ml Output Total 0 ml 100 ml Balance 240 ml 400 ml Result Diagram: 11/26/17 0510 11/26/17 0510 Objective Remarks GENERAL: Pleasant female who is laying in [facility] bed. On nasal cannula. SKIN: Warm and dry. HEAD: Atraumatic. Normocephalic. EYES: Pupils equal and round, 2 mm reactive.. No scleral icterus. No injection or drainage. ENT: No nasal bleeding or discharge. Mucous membranes pink and moist. NECK: Trachea midline. No JVD. CARDIOVASCULAR: Regular rate and rhythm, sinus rhythm on the monitor with rate in the 70s.. No murmurs rubs or gallops. Hypertensive now RESPIRATORY: Breathing comfortably with no accessory muscle use. Clear to auscultation. GASTROINTESTINAL: Abdomen soft, non-tender, nondistended. Bowel sounds present. No hepatomegaly. MUSCULOSKELETAL/VASCULAR: AV fistula in left upper arm with palpable thrill. There is necrosis overlying distal phalanx of left fourth digit. There is necrosis of 2nd, 3rd and 5th digit of right foot. R groin wound vac in place. Doppler pulse to bilateral DP NEUROLOGICAL: Awake and alert. No obvious cranial nerve deficits. Motor grossly within normal limits. Normal speech. A/P Problem List: (1) ESRD (end stage renal disease) on dialysis ICD Code: N18.6 - End stage renal disease; Z99.2 - Dependence on renal dialysis Status: Chronic (2) Gangrene of foot ICD Code: I96 - Gangrene, not elsewhere classified Status: Acute (3) Anemia of renal disease ICD Code: D63.1 - Anemia in chronic kidney disease Status: Chronic (4) DM (diabetes mellitus) ICD Code: E11.9 - Type 2 diabetes mellitus without complications Status: Chronic (5) Hypertension ICD Code: I10 - Essential (primary) hypertension Status: Chronic (6) CAD (coronary artery disease) ICD Code: I25.10 - Atherosclerotic heart disease of [place] coronary artery without angina pectoris Status: Chronic (7) Hypotension ICD Code: I95.9 - Hypotension, unspecified Assessment and Plan NEURO: Peripheral neuropathy Gabapentin 100 mg by mouth 3 times a day IV morphine for pain control RESP: Nasal cannula oxygen Incentive spirometry every hour awake CV: Peripheral arterial disease Coronary artery disease with prior stents Essential hypertension at baseline Hyperlipidemia Holding Cardura 10 mg by mouth daily at bedtime, metoprolol 25 mg by mouth twice a day. Off Brennen-Synephrine, currently borderline hypotensive s/p aortogram and angiogram 11/[address] Vazquez Plaquenil 200 mg daily Plavix 75 mg daily Aspirin 161 mg by mouth daily s/p R iliofemoral bypass and R fem-pop bypass by Dr. Vazquez 11/26/17 GI: Renal diet. FEN/RENAL: ESRD Hemodialysis Thursday/Thursday/Thursday per nephrology. Scheduled for dialysis today 11/25 Renvela 2400 mg by mouth 3 times a day ID: Gangrene toes right foot, left finger. Blood cultures from 11/20 no growth to date On cefepime 1 g IV every 24 hours. Wound care following. Management per Dr. Vazquez. HEME: Chronic anemia Erythropoietin 5000 units with dialysis Folic acid 1 mg by mouth daily ENDO: Diabetes mellitus, type II Low-dose insulin sliding scale AC/hs PROPH: Heparin 5000 subcutaneous to 12 for DVT prophylaxis-resume when cleared by Dr. Vazquez. Protonix 40 mg by mouth daily for stress ulcer prophylaxis. ACCESS: PIV providing adequate access at this time. Level II Problem Qualifiers (1) Hypertension: Qualified Codes: I10 - Essential (primary) hypertension Caty Salazar MD Nov 26, 2017 17:30
[2017-11-26] MEDS: MORPHINE SULFATE 2 MG/ML INJ IV PUSH PRN ×2 (17:31→17:59)
[2017-11-26] MEDS ORDERED: MORPHINE SULFATE 2 MG/ML INJ IV ONE (20:45)
[2017-11-26] MEDS ORDERED: MORPHINE SULFATE 2 MG/ML INJ IV PRN (20:45)
[2017-11-26] MEDS ORDERED: oxyCODONE/ACETAMINOPHEN 7.5 MG/325 MG TAB PO PRN (20:45)
[2017-11-27] VITALS (15 sets, daily range): BP systolic 116–166; BP diastolic 55–78; PULSE 87–104; RESP 9–15; TEMP 97.1–98.5; O2SAT 100
[2017-11-27 04:28] LABS: HEMATOCRIT 29.2 % (35.0-46.0); HEMOGLOBIN 9.3 GM/DL (11.6-15.3); MEAN CELL VOLUME 91.5 FL (80.0-100.0); MEAN CORPUSCULAR HEMOGLOBIN 29.1 PG (27.0-34.0); MEAN CORPUSCULAR HGB CONC 31.8 % (32.0-36.0); MEAN PLATELET VOLUME 8.7 FL (7.0-11.0); PLATELET COUNT 243 TH/MM3 (150-450); RED BLOOD COUNT 3.19 MIL/MM3 (4.00-5.30); RED CELL DISTRIBUTION WIDTH 16.4 % (11.6-17.2); WHITE BLOOD COUNT 10.9 TH/MM3 (4.0-11.0)
[2017-11-27 05:00] LABS: BICARBONATE 26.7 MEQ/L (21.0-32.0); CALCIUM 9.6 MG/DL (8.5-10.1); CREATININE 8.64 MG/DL (0.50-1.00)
--- NOTE | 2017-11-27 07:05 | MP ---
cc: MIRNA RAMIREZ MD DATE OF SURGERY 11/27/2017 PREOPERATIVE DIAGNOSIS Right lower extremity tissue loss, peripheral arterial occlusive disease. POSTOPERATIVE DIAGNOSIS Right lower extremity tissue loss, peripheral arterial occlusive disease. PROCEDURE 1. Right iliofemoral bypass with an 8 mm Dacron 2. Right femoral to below-knee popliteal artery bypass with cryopreserved vein. ATTENDING SURGEON Mirna Ramirez MD INSTRUCTOR DECORATING SURGEON Martin Paul ANESTHESIA General INDICATIONS Ms. Tavares is a middle-aged female with end-stage renal disease and peripheral arterial occlusive disease with tissue loss over her right second and third toes. She was taken to the operating room for a distal bypass. DESCRIPTION OF PROCEDURE Informed consent was obtained from the patient. She was taken to the operating room and placed supine on the operating room table and an appropriate time-out was taken to ensure the patient's identity, operative site and planned procedure. The administration of a gram of vancomycin was initiated prior to the skin incision and will be discontinued after a single preoperative dose. Vancomycin was chosen because of the patient's end-stage renal disease and preoperative length of stay. Everyone in the room agreed with the time-out and we proceeded. She was prepped from her nipples to her toes. A vertical incision was made in the patient's right groin, carried down through the subcutaneous tissues with electrocautery. She had intensely calcified arteries. These were encircled and dissected free including the external iliac artery, circumflex, femoral arteries, proximal SFA and profunda down to the several profunda branches. A separate incision made on the medial aspect of the below-knee calf and this was carried down through the subcutaneous tissue with electrocautery. The below-knee popliteal artery was identified and dissected free. We then made a counterincision in the above-knee thigh and carried down to the subcutaneous tissue to facilitate tunneling the graft. The patient was systemically heparinized and throughout the remainder of the case, the ACT was kept greater than 250. Cryopreserved vein was brought up on the field and prepped in the standard fashion. Proximal control of the distal external iliac artery was obtained with a profunda clamp and control with the profunda clamp was obtained as well. The SFA was transected and the distal end was oversewn and the common femoral artery was resected. The proximal common femoral artery up into the iliac artery was beveled and an 8 mm Dacron was sewn on end-to-end with running 5-0 Prolene suture. At the completion, it was flushed, noted to be hemostatic. The clamps were reapplied. The Dacron was cut to an appropriate length and sewn to the proximal profunda after the profunda was endarterectomized and this was done with running 5-0 Prolene suture. At the completion, the clamps were released. There was a nice Doppler signal in three of the branches of the profunda and femoris artery. The clamps were reapplied and a longitudinal graftotomy was made with an 11 blade and extended with [place] scissors. The previously prepared cryopreserved tissue was brought up on the field, spatulated and sewn end-to-side to the graft with running 5-0 Prolene suture. At the completion, it was flushed and noted to be hemostatic. The clamps were placed on the distal aspect the graft. The graft was marked for orientation and passed through the anatomic tunnel. Proximal and distal control of the below-knee popliteal artery was obtained with profunda clamps and a longitudinal arteriotomy was made with an 11 blade and extended with Tay scissors. The vein was cut to an appropriate length, spatulated and sewn end-to-side with running 6-0 Prolene suture. At the completion, it was flushed and noted to be hemostatic. There is a nice dorsalis pedis Doppler signal that was graft dependent. The wounds were all irrigated, made hemostatic. The heparin was reversed with protamine and the wounds were all closed with 2-0 Polysorb, 3-0 Polysorb and 4-0 Monocryl. The sponge and needle counts were correct at the end of the case I was present, scrubbed, and performed the entire procedure. MD ANDERS Barlow/NISH /9:13 PM /6:27 AM
--- NOTE | 2017-11-27 07:22 | PD.VS.PN ---
Subjective POD #: 1 Procedure(s): R iliofemoral bypass, fem-BK pop Subjective/Hospital Course pt slightly somnolent this morning does not c/o foot pain. Objective Vitals/I&O Date Time Temp Pulse Resp B/P (MAP) Pulse Ox O2 Delivery O2 Flow Rate FiO2 11/27/17 06:00 94 11/27/17 04:00 97.5 89 9 166/78 (107) 100 11/27/17 04:00 89 11/27/17 02:00 87 11/27/17 01:15 102 11/27/17 00:00 97.1 87 10 137/76 (96) 100 11/27/17 00:00 87 11/26/17 22:00 88 11/26/17 20:00 97.4 80 10 138/54 (82) 100 11/26/17 20:00 80 11/26/17 19:42 100 11/26/17 18:00 86 11/26/17 16:45 90 17 152/68 (96) 100 Nasal Cannula 2 11/26/17 16:30 96 12 150/68 (95) 100 Nasal Cannula 2 11/26/17 16:15 97.9 96 12 141/66 (91) 92 Nasal Cannula 2 11/26/17 12:35 98.2 79 15 151/72 (98) 100 11/26/17 12:35 100 Nasal Cannula 3 11/26/17 12:00 98.4 72 13 131/62 (85) 100 11/26/17 12:00 72 11/26/17 10:00 80 11/26/17 08:25 99 11/26/17 08:00 72 11/26/17 08:00 98.7 72 13 136/67 (90) 100 11/27/17 11/27/17 11/27/17 07:00 15:00 23:00 Intake Total 240 ml Output Total 0 ml Balance 240 ml Exam: R groin soft; Provena intact R distal thigh incision c/d/i R calf incision c/d/i R toes 2-4 necrotic Pulses: Strong DP signal at foot Laboratory Laboratory Tests Test 11/27/17 04:10 White Blood Count 10.9 Red Blood Count 3.19 Hemoglobin 9.3 Hematocrit 29.2 Mean Corpuscular Volume 91.5 Mean Corpuscular Hemoglobin 29.1 Mean Corpuscular Hemoglobin Concent 31.8 Red Cell Distribution Width 16.4 Platelet Count 243 Mean Platelet Volume 8.7 Blood Urea Nitrogen 41 Creatinine 8.64 Random Glucose 108 Calcium Level 9.6 Sodium Level 134 Potassium Level 4.5 Chloride Level 95 Carbon Dioxide Level 26.7 Anion Gap 12 Estimat Glomerular Filtration Rate 6 Date/Time Source Procedure Growth Status 11/20/17 22:55 Blood Peripheral Aerobic Blood Culture - Final NO GROWTH IN 5 DAYS Complete 11/20/17 22:55 Blood Peripheral Anaerobic Blood Culture - Final NO GROWTH IN 5 DAYS Complete Assessment and Plan Plan POD#1 s/p R groin reconstruction and distal bypass; much improved perfusion to foot 1. Normalize with all meds, HD 2. OOB and ambulate as tolerated 3. Likely to need toe amputations at some point, potentially early next week 4. Will need L UE DRIL when recovers more from R LE bypass, not necessarily this admission Discharge Planning likely a week then to rehab Don Ramirez MD Nov 27, 2017 07:22
[2017-11-27] MEDS: INSULIN ASPART SUPPLEMENTAL SCALE SQ SCH ×4 (08:00→20:59)
[2017-11-27] MEDS: SEVELAMER CARBONATE 800 MG TAB PO SCH ×3 (08:00→16:47)
[2017-11-27] MEDS: ASPIRIN 81 MG CHEW TAB PO SCH (08:58)
[2017-11-27] MEDS: GABAPENTIN 100 MG CAP PO SCH ×2 (08:58→13:00)
[2017-11-27] MEDS: FOLIC ACID 1 MG TAB PO SCH (08:58)
[2017-11-27] MEDS: DOCUSATE SODIUM 50 MG/SENNA 8.6 MG TAB PO SCH ×2 (08:59→21:00)
[2017-11-27] MEDS: HYDROXYCHLOROQUINE SULFATE 200 MG TAB PO SCH (08:59)
[2017-11-27] MEDS: CLOPIDOGREL 75 MG TAB PO SCH (09:00)
[2017-11-27] MEDS: SODIUM CHLORIDE 0.9% FLUSH 10 ML FLUSH IV FLUSH SCH ×2 (09:00→21:00)
[2017-11-27] MEDS: PANTOPRAZOLE SOD 40 MG DELAYED RELEASE TAB PO SCH (09:00)
[2017-11-27] MEDS: CEFEPIME INJ 1,000 MG in SODIUM CHLORIDE 0.9% INJ 100 ML IV SCH (09:00)
--- NOTE | 2017-11-27 11:04 | HHI.CCPN ---
Subjective Remarks/Hospital Course 57-year-old female with past medical history of diabetes, hypertension, hyperlipidemia, coronary artery disease with prior stents, chronic systolic heart failure (EF 30-35%), end-stage renal disease on hemodialysis Thursday/Thursday/Thursday, peripheral neuropathy, chronic anemia who presented to to [facility] with two week history of right foot pain and drainage. She was admitted to to the hospitalist service and started on cefepime. Today she has undergone an aortogram with upper and lower extremity angiogram by Dr. Vazquez. Intraoperatively she received 250 of crystalloid. No EBL. She received general anesthesia, fentanyl 50 g IV, propofol, morphine 4 mg IV. She underwent dialysis yesterday with 1 kg removal. She was started on phenylephrine during the case and remains on this vasopressor. Was initially at 70 mcg/m upon arrival to [facility]. Now at 50 mcg/m. She denies CP/SOB 11/25/17: remains on brennen-synephrine at 50 mcg/min to keep MAP >65. Very tender to touch on right foot and left hand. OR with Dr. vazquez tomorrow for RLE revascularization. POD#1 diagnostic angiography L UE and R LE. Per Dr. Vazquez, will need Left UE DRIL (distal revascularization interval ligation) after recovery from R LE revascularization 11/26/17: Patient seen after OR. Off neosynephrine. Underwent R iliofemoral bypass and R fem-pop bypass by Dr. Vazquez. Complaints of postop pain 11/27/17: Getting HD today, remains off pressors since surgery. Vascular acces team noted possible old residual Angiocath in midforearm, probably right radial vein. I discussed with Dr. Vazquez, will check venous US/duplex to confirm Objective Vital Signs Date Time Temp Pulse Resp B/P (MAP) Pulse Ox O2 Delivery O2 Flow Rate FiO2 11/27/17 07:46 100 Nasal Cannula 2.00 11/27/17 06:00 94 11/27/17 04:00 97.5 9 166/78 (107) 11/23/17 17:36 21 Intake and Output 11/27/17 11/27/17 11/28/17 08:00 16:00 00:00 Intake Total 240 ml Output Total 0 ml Balance 240 ml Result Diagram: 11/27/1740911/27/17409 Objective Remarks GENERAL: Pleasant female who is laying in ISC bed. On nasal cannula. SKIN: Warm and dry. HEAD: Atraumatic. Normocephalic. EYES: Pupils equal and round, 2 mm reactive. No scleral icterus. No injection or drainage. ENT: No nasal bleeding or discharge. Mucous membranes pink and moist. NECK: Trachea midline. No JVD. CARDIOVASCULAR: Regular rate and rhythm, sinus rhythm on the monitor with rate in the 70s. No murmurs rubs or gallops. RESPIRATORY: Breathing comfortably with no accessory muscle use. Clear to auscultation. GASTROINTESTINAL: Abdomen soft, non-tender, nondistended. Bowel sounds present. No hepatomegaly. MUSCULOSKELETAL/VASCULAR: AV fistula in left upper arm with palpable thrill. There is necrosis overlying distal phalanx of left fourth digit. There is necrosis of 2nd, 3rd and 5th digit of right foot. R groin wound vac in place. Doppler pulse to bilateral DP. ? On US possible broken catheter in R radial vein NEUROLOGICAL: Awake and alert. No obvious cranial nerve deficits. Motor grossly within normal limits. Normal speech. A/P Problem List: (1) ESRD (end stage renal disease) on dialysis ICD Code: N18.6 - End stage renal disease; Z99.2 - Dependence on renal dialysis Status: Chronic (2) Gangrene of foot ICD Code: I96 - Gangrene, not elsewhere classified Status: Acute (3) Anemia of renal disease ICD Code: D63.1 - Anemia in chronic kidney disease Status: Chronic (4) DM (diabetes mellitus) ICD Code: E11.9 - Type 2 diabetes mellitus without complications Status: Chronic (5) Hypertension ICD Code: I10 - Essential (primary) hypertension Status: Chronic (6) CAD (coronary artery disease) ICD Code: I25.10 - Atherosclerotic heart disease of [place] coronary artery without angina pectoris Status: Chronic (7) Hypotension ICD Code: I95.9 - Hypotension, unspecified Assessment and Plan NEURO: Peripheral neuropathy Gabapentin 100 mg by mouth 3 times a day IV morphine for pain control RESP: Nasal cannula oxygen Incentive spirometry every hour awake CV: Peripheral arterial disease Coronary artery disease with prior stents Essential hypertension at baseline Hyperlipidemia s/p R iliofemoral bypass and R fem-pop bypass by Dr. Vazquez 11/26/17 Holding Cardura 10 mg by mouth daily at bedtime, metoprolol 25 mg by mouth twice a day. Off Brennen-Synephrine, currently borderline hypotensive s/p aortogram and angiogram 11/[address] Vazquez Plaquenil 200 mg daily Plavix 75 mg daily Aspirin 161 mg by mouth daily Check US of RUE -probable broken catheter in GI: Renal diet. FEN/RENAL: ESRD Hemodialysis Thursday/Thursday/Thursday per nephrology. Scheduled for dialysis today 11/27 Renvela 2400 mg by mouth 3 times a day ID: Gangrene toes right foot, left finger. No acute intervention for gangrene at this time Blood cultures from 11/20 no growth to date On cefepime 1 g IV every 24 hours. Wound care following. Management per Dr. Vazquez. HEME: Chronic anemia Erythropoietin 5000 units with dialysis Folic acid 1 mg by mouth daily ENDO: Diabetes mellitus, type II Low-dose insulin sliding scale AC/hs PROPH: Heparin 5000 subcutaneous to 12 for DVT prophylaxis-resumed. Protonix 40 mg by mouth daily for stress ulcer prophylaxis. ACCESS: PIV providing adequate access at this time. Level II Transfer to Med surg. hepas consulted Problem Qualifiers (1) Hypertension: Qualified Codes: I10 - Essential (primary) hypertension Caty Salazar MD Nov 27, 2017 11:04
[2017-11-27] MEDS: DEXTROSE 10% INJ 500 ML IV SCH (11:45)
--- NOTE | 2017-11-27 12:11 | RADRPT ---
EXAM DATE/TIME: 11/27/2017 11:25 [place] COMPARISON: No previous studies available for comparison. INDICATIONS : Possible broken IV catheter in right forearm. MEDICAL HISTORY : Congestive heart failure. Peripheral vascular disease. Rheumatoid arthritis. Glaucoma. Angina. Mace ry artery disease. HTN. Renal disease and failure. Diabetes. Hep C. SURGICAL HISTORY : Angioplasty. Coronary artery stent. section. Hysterectomy. Dialysis. AV fistula placement. ENCOUNTER: Initial ACUITY: 1 day PAIN SCORE: 3/10 LOCATION: Right arm. AREA EVALUATED: Right forearm, radial vein and artery. FINDINGS: Ultrasound does reveal a 3.1 cm IV catheter fragment in right lateral radial pain. There does appear to be some surrounding thrombus. CONCLUSION: 1. Catheter fragment in right forearm as above. Jose L Vidal MD on November 27, 2017 at 12:08 Board Certified Radiologist. This report was verified electronically.
[2017-11-27] MEDS: GELATIN 12 MM/7 MM FOAM TOP PRN (12:22)
[2017-11-27] MEDS: EPOETIN ALFA 10,000 UNITS/ML VIAL IV PUSH PRN (12:22)
[2017-11-27] MEDS: HEPARIN SODIUM - SQ 10,000 UNITS/ML VIAL SQ SCH (15:30)
--- NOTE | 2017-11-27 15:42 | HHI.NPPN ---
Subjective General Problems: Anemia Renal Failure: Chronic, End Stage Renal Disease Interval History patient underwent right ileofemoral and right Fem-Pop bypass. Appeared somewhat confused when I saw her. Had been given morphine earlier. Review of Systems General Constitutional: Fatigue Musculoskeletal MS: Pain/Stiffness MS Remarks right foot pain Objective Data Data 11/27/17 11/28/17 19:00 07:00 Output Total 2000 ml Balance -2000 ml Hemodialysis 2000 ml Vital Signs Date Time Temp Pulse Resp B/P (MAP) Pulse Ox O2 Delivery O2 Flow Rate FiO2 11/27/17 14:00 98 11/27/17 12:00 98.1 100 15 118/60 (79) 100 11/27/17 12:00 102 11/27/17 10:00 88 11/27/17 08:00 98.5 88 13 144/68 (93) 100 11/27/17 08:00 88 11/27/17 07:46 100 Nasal Cannula 2.00 11/27/17 06:00 94 11/27/17 04:00 97.5 89 9 166/78 (107) 100 11/27/17 04:00 89 11/27/17 02:00 87 11/27/17 01:15 102 11/27/17 00:00 97.1 87 10 137/76 (96) 100 11/27/17 00:00 87 11/26/17 22:00 88 11/26/17 20:00 97.4 80 10 138/54 (82) 100 11/26/17 20:00 80 11/26/17 19:42 100 11/26/17 18:00 86 11/26/17 16:45 90 17 152/68 (96) 100 Nasal Cannula 2 11/26/17 16:30 96 12 150/68 (95) 100 Nasal Cannula 2 11/26/17 16:15 97.9 96 12 141/66 (91) 92 Nasal Cannula 2 -: 11/27/17 0410 11/27/17 0410 Physical Exam General Appearance: Well Developed, No Acute Distress, Malnourished Eyes Eye Exam: Pupils Equal Throat Throat Exam: Oral Mucosa [place] & Moist Neck Neck Exam: Neck Supple Pulmonary Resp Exam: Clear Bilaterally, Breath Sounds Equal Cardiology CV Exam: Regular, Normal Sinus Rhythm Gastrointestinal/Abdomen GI Exam: Soft, Non-Tender, Bowel Sounds Present Musculoskeletal MS Exam: Normal Tone, Atrophy Integumentary Skin Exam: Warm, Dry Extremeties Extremities Exam: No Edema Extremeties Remarks chronic ischemic changes. Wound on the right foot. Neurologic Neuro Exam: Alert, Awake, Oriented, Speech Clear, Moving All Extremities Psychiatric Psych Exam: Appropriate Responses Assessment/Plan Discussed Condition With: Patient Assessment Summary: Anemia of CKD, [place] Hyperparathyroid, Malnutrition, Hypotension, End Stage Renal Disease Problem List: (1) ESRD (end stage renal disease) on dialysis ICD Codes: N18.6 - End stage renal disease; Z99.2 - Dependence on renal dialysis Status: Chronic Plan: Continue HD MWF, had dialysis today, 2 liters removed. Avoid Gadolinium. Avoid IVF administration. Monitor fluid and electrolytes. High protein diet. Continue binder therapy with Renvela; evaluate phosphorus intermittently. (2) DM (diabetes mellitus) ICD Codes: E11.9 - Type 2 diabetes mellitus without complications Status: Chronic Plan: NPO, start D10@20. Continue insulin coverage when diet is restarted. Maintain glucose 140-180 mg/dL. (3) Metabolic bone disease ICD Codes: E88.9 - Metabolic disorder, unspecified; M90.80 - Osteopathy in diseases classified elsewhere, unspecified site Status: Acute Plan: Her diet is high protein, low phosphorus. On Renvela. (4) Gangrene of foot ICD Codes: I96 - Gangrene, not elsewhere classified Status: Acute Plan: Continue Wound care Vascular surgery is following, s/p ileofemoral and Fem-Pop bypass surgery. Consider podiatry evaluation as well. She also has ischemia of the access hand. Will need DRIL procedure. (5) Anemia of renal disease ICD Codes: D63.1 - Anemia in chronic kidney disease Status: Chronic Plan: hemoglobin is currently acceptable, monitor. Epogen as needed. Nazario Ahumada MD Nov 27, 2017 15:42
[2017-11-27] MEDS ORDERED: HALOPERIDOL LACTATE 5 MG/ML AMP IV PUSH PRN (18:15)
[2017-11-27 22:11] LABS: HEMATOCRIT 27.5 % (35.0-46.0); MEAN CELL VOLUME 90.2 FL (80.0-100.0); MEAN CORPUSCULAR HEMOGLOBIN 29.4 PG (27.0-34.0); MEAN CORPUSCULAR HGB CONC 32.6 % (32.0-36.0); MEAN PLATELET VOLUME 8.7 FL (7.0-11.0); PLATELET COUNT 238 TH/MM3 (150-450); RED BLOOD COUNT 3.05 MIL/MM3 (4.00-5.30); RED CELL DISTRIBUTION WIDTH 16.2 % (11.6-17.2); WHITE BLOOD COUNT 11.3 TH/MM3 (4.0-11.0)
[2017-11-27 22:36] LABS: ALBUMIN 2.6 GM/DL (3.4-5.0); ALKALINE PHOSPHATASE 116 U/L (45-117); ALT (GPT) 20 U/L (10-53); AST (GOT) 26 U/L (15-37); BLOOD UREA NITROGEN 24 MG/DL (7-18); CALCIUM 9.3 MG/DL (8.5-10.1); CHLORIDE 98 MEQ/L (98-107); CREATININE 6.01 MG/DL (0.50-1.00); GLOMERULAR FILTRATION RATE 9 ML/MIN (>89); GLUCOSE,RANDOM 102 MG/DL (74-106); SODIUM (NA) 140 MEQ/L (136-145); TOTAL BILIRUBIN ADULT 0.6 MG/DL (0.2-1.0); TOTAL PROTEIN 7.5 GM/DL (6.4-8.2)
[2017-11-27] MEDS: oxyCODONE/ACETAMINOPHEN 7.5 MG/325 MG TAB PO PRN (22:56)
[2017-11-28] VITALS (10 sets, daily range): BP systolic 122–149; BP diastolic 60–66; PULSE 79–110; RESP 11–26; TEMP 98.6–99.6; O2SAT 96–100
[2017-11-28] MEDS: HEPARIN SODIUM - SQ 10,000 UNITS/ML VIAL SQ SCH ×5 (00:49→13:00)
[2017-11-28 05:49] LABS: HEMATOCRIT 28.8 % (35.0-46.0); HEMOGLOBIN 9.2 GM/DL (11.6-15.3); MEAN CELL VOLUME 90.3 FL (80.0-100.0); MEAN CORPUSCULAR HEMOGLOBIN 28.7 PG (27.0-34.0); MEAN CORPUSCULAR HGB CONC 31.8 % (32.0-36.0); MEAN PLATELET VOLUME 8.7 FL (7.0-11.0); PLATELET COUNT 246 TH/MM3 (150-450); RED BLOOD COUNT 3.19 MIL/MM3 (4.00-5.30); RED CELL DISTRIBUTION WIDTH 16.2 % (11.6-17.2)
[2017-11-28 06:20] LABS: BICARBONATE 28.8 MEQ/L (21.0-32.0); CALCIUM 10.1 MG/DL (8.5-10.1); CREATININE 6.82 MG/DL (0.50-1.00)
[2017-11-28] MEDS: INSULIN ASPART SUPPLEMENTAL SCALE SQ SCH ×4 (07:25→20:53)
[2017-11-28] MEDS: SEVELAMER CARBONATE 800 MG TAB PO SCH ×3 (08:00→17:00)
[2017-11-28] MEDS: CEFEPIME INJ 1,000 MG in SODIUM CHLORIDE 0.9% INJ 100 ML IV SCH (08:54)
[2017-11-28] MEDS: ASPIRIN 81 MG CHEW TAB PO SCH (08:54)
[2017-11-28] MEDS: PANTOPRAZOLE SOD 40 MG DELAYED RELEASE TAB PO SCH (08:54)
[2017-11-28] MEDS: FOLIC ACID 1 MG TAB PO SCH (08:54)
[2017-11-28] MEDS: HYDROXYCHLOROQUINE SULFATE 200 MG TAB PO SCH (08:54)
[2017-11-28] MEDS: GABAPENTIN 100 MG CAP PO SCH ×3 (08:54→17:14)
[2017-11-28] MEDS: CLOPIDOGREL 75 MG TAB PO SCH (08:54)
[2017-11-28] MEDS: DOCUSATE SODIUM 50 MG/SENNA 8.6 MG TAB PO SCH ×2 (08:54→20:43)
[2017-11-28] MEDS: SODIUM CHLORIDE 0.9% FLUSH 10 ML FLUSH IV FLUSH SCH ×2 (08:54→20:43)
--- NOTE | 2017-11-28 10:05 | PD.VS.PN ---
Subjective POD #: 2 Procedure(s): R iliofemoral bypass, fem-BK pop Subjective/Hospital Course slightly confused but pleasant this morning notes L knee pain. ROBERTSON heidy some po Objective Vitals/I&O Date Time Temp Pulse Resp B/P (MAP) Pulse Ox O2 Delivery O2 Flow Rate FiO2 11/28/17 08:12 100 Nasal Cannula 2.00 11/28/17 08:00 99.5 93 11 149/66 (93) 100 11/28/17 08:00 92 11/28/17 06:00 106 11/28/17 04:00 98 11/28/17 04:00 98.6 98 11 136/63 (87) 100 11/28/17 02:00 96 11/28/17 00:00 98.6 104 13 143/62 (89) 100 11/28/17 00:00 104 11/27/17 22:00 98 11/27/17 20:00 96 11/27/17 20:00 98.3 96 13 144/55 (84) 100 11/27/17 19:47 100 Nasal Cannula 2.00 11/27/17 18:00 104 11/27/17 16:00 98.5 94 10 116/55 (75) 100 11/27/17 16:00 94 11/27/17 14:00 98 11/27/17 12:00 98.1 100 15 118/60 (79) 100 11/27/17 12:00 102 11/28/17 11/28/17 11/28/17 07:00 15:00 23:00 Intake Total 120 ml Output Total 0 ml Balance 120 ml Exam: R groin, leg incisions ok R groin with Provena R toes cyanotic but no drainage Pulses: Strong DP signal R foot Laboratory Laboratory Tests Test 11/27/17 18:20 11/27/17 21:51 11/28/17 05:36 Blood Gas Puncture Site RT RADIAL Blood Gas Patient Temperature 98.6 Blood Gas HCO3 30 Blood Gas Base Excess 5.1 Blood Gas Oxygen Saturation 96 Arterial Blood pH 7.41 Arterial Blood Partial Pressure CO2 48 Arterial Blood Partial Pressure O2 120 Arterial Blood Oxygen Content 12.5 Arterial Blood Carboxyhemoglobin 1.7 Arterial Blood Methemoglobin 1.1 Blood Gas Hemoglobin 9.1 Oxygen Delivery Device NASAL CANNULA Blood Gas Liter Flow 2 White Blood Count 11.3 14.0 Red Blood Count 3.05 3.19 Hemoglobin 9.0 9.2 Hematocrit 27.5 28.8 Mean Corpuscular Volume 90.2 90.3 Mean Corpuscular Hemoglobin 29.4 28.7 Mean Corpuscular Hemoglobin Concent 32.6 31.8 Red Cell Distribution Width 16.2 16.2 Platelet Count 238 246 Mean Platelet Volume 8.7 8.7 Blood Urea Nitrogen 24 29 Creatinine 6.01 6.82 Random Glucose 102 107 Total Protein 7.5 Albumin 2.6 Calcium Level 9.3 10.1 Alkaline Phosphatase 116 Aspartate Amino Transf (AST/SGOT) 26 Alanine Aminotransferase (ALT/SGPT) 20 Total Bilirubin 0.6 Sodium Level 140 138 Potassium Level 4.1 4.3 Chloride Level 98 97 Carbon Dioxide Level 31.0 28.8 Anion Gap 11 12 Estimat Glomerular Filtration Rate 9 8 Date/Time Source Procedure Growth Status 11/20/17 22:55 Blood Peripheral Aerobic Blood Culture - Final NO GROWTH IN 5 DAYS Complete 11/20/17 22:55 Blood Peripheral Anaerobic Blood Culture - Final NO GROWTH IN 5 DAYS Complete Assessment and Plan Plan POD#2 s/p R groin reconstruction and distal bypass; much improved perfusion to foot 1. Normalize with all meds, HD 2. OOB and ambulate as tolerated 3. Likely to need toe amputations at some point, potentially early next week 4. Will need L UE DRIL when recovers more from R LE bypass, not necessarily this admission Discharge Planning likely a week then to rehab Don Ramirez MD Nov 28, 2017 10:05
--- NOTE | 2017-11-28 10:57 | HHI.CCPN ---
Subjective Remarks/Hospital Course 57-year-old female with past medical history of diabetes, hypertension, hyperlipidemia, coronary artery disease with prior stents, chronic systolic heart failure (EF 30-35%), end-stage renal disease on hemodialysis Thursday/Thursday/Thursday, peripheral neuropathy, chronic anemia who presented to to [facility] with two week history of right foot pain and drainage. She was admitted to to the hospitalist service and started on cefepime. Today she has undergone an aortogram with upper and lower extremity angiogram by Dr. Vazquez. Intraoperatively she received 250 of crystalloid. No EBL. She received general anesthesia, fentanyl 50 g IV, propofol, morphine 4 mg IV. She underwent dialysis yesterday with 1 kg removal. She was started on phenylephrine during the case and remains on this vasopressor. Was initially at 70 mcg/m upon arrival to [facility]. Now at 50 mcg/m. She denies CP/SOB 11/25/17: remains on brennen-synephrine at 50 mcg/min to keep MAP >65. Very tender to touch on right foot and left hand. OR with Dr. vazquez tomorrow for RLE revascularization. POD#1 diagnostic angiography L UE and R LE. Per Dr. Vazquez, will need Left UE DRIL (distal revascularization interval ligation) after recovery from R LE revascularization 11/26/17: Patient seen after OR. Off neosynephrine. Underwent R iliofemoral bypass and R fem-pop bypass by Dr. Vazquez. Complaints of postop pain 11/27/17: Getting HD today, remains off pressors since surgery. Vascular acces team noted possible old residual Angiocath in midforearm, probably right radial vein. I discussed with Dr. Vazquez, will check venous US/duplex to confirm 11/28/17: Hemodynamically stable, mild increased in WBC. RN reported intermittent confusion, On my exam alert awake, oriented x3 Objective Vital Signs Date Time Temp Pulse Resp B/P (MAP) Pulse Ox O2 Delivery O2 Flow Rate FiO2 11/28/17 08:12 100 Nasal Cannula 2.00 11/28/17 08:00 99.5 93 11 149/66 (93) Intake and Output 11/28/17 11/28/17 11/29/17 08:00 16:00 00:00 Intake Total 120 ml Output Total 0 ml Balance 120 ml Result Diagram: 11/28/17 0536 11/28/17 0536 Other Results Laboratory Tests Test 11/27/17 18:20 Blood Gas Puncture Site RT RADIAL Blood Gas Patient Temperature 98.6 Blood Gas HCO3 30 mmol/L (22-26) Blood Gas Base Excess 5.1 mmol/L (-2-2) Blood Gas Oxygen Saturation 96 % (90-100) Arterial Blood pH 7.41 (7.380-7.420) Arterial Blood Partial Pressure CO2 48 mmHg (38-42) Arterial Blood Partial Pressure O2 120 mmHg (61-120) Arterial Blood Oxygen Content 12.5 Vol % (12.0-20.0) Arterial Blood Carboxyhemoglobin 1.7 % (0-4) Arterial Blood Methemoglobin 1.1 % (0-2) Blood Gas Hemoglobin 9.1 G/DL (12.0-16.0) Oxygen Delivery Device NASAL CANNULA Blood Gas Liter Flow 2 L/M Objective Remarks GENERAL: Pleasant female sitting up in ISC bed. On nasal cannula. SKIN: Warm and dry. HEAD: Atraumatic. Normocephalic. EYES: Pupils equal and round, 2 mm reactive. No scleral icterus. No injection or drainage. ENT: No nasal bleeding or discharge. Mucous membranes pink and moist. NECK: Trachea midline. No JVD. CARDIOVASCULAR: Regular rate and rhythm, sinus rhythm on the monitor with rate in the 70s. No murmurs rubs or gallops. RESPIRATORY: Breathing comfortably with no accessory muscle use. Clear to auscultation. GASTROINTESTINAL: Abdomen soft, non-tender, nondistended. Bowel sounds present. No hepatomegaly. MUSCULOSKELETAL/VASCULAR: AV fistula in left upper arm with palpable thrill. There is necrosis overlying distal phalanx of left fourth digit. Necrosis of 2nd, 3rd and 5th digit of right foot. R groin wound vac in place. Doppler pulse to bilateral DP. ? On US possible broken catheter in R radial vein NEUROLOGICAL: Awake and alert. No obvious cranial nerve deficits. Motor grossly within normal limits. Normal speech. Urinary Catheter: Yes Assessment to: Continue A/P Problem List: (1) ESRD (end stage renal disease) on dialysis ICD Code: N18.6 - End stage renal disease; Z99.2 - Dependence on renal dialysis Status: Chronic (2) Gangrene of foot ICD Code: I96 - Gangrene, not elsewhere classified Status: Acute (3) Anemia of renal disease ICD Code: D63.1 - Anemia in chronic kidney disease Status: Chronic (4) DM (diabetes mellitus) ICD Code: E11.9 - Type 2 diabetes mellitus without complications Status: Chronic (5) Hypertension ICD Code: I10 - Essential (primary) hypertension Status: Chronic (6) CAD (coronary artery disease) ICD Code: I25.10 - Atherosclerotic heart disease of [place] coronary artery without angina pectoris Status: Chronic (7) Hypotension ICD Code: I95.9 - Hypotension, unspecified Assessment and Plan NEURO: Peripheral neuropathy Gabapentin 100 mg by mouth 3 times a day IV morphine PRN for pain control RESP: Nasal cannula oxygen Incentive spirometry every hour awake CV: Peripheral arterial disease Coronary artery disease with prior stents Essential hypertension at baseline Hyperlipidemia s/p R iliofemoral bypass and R fem-pop bypass by Dr. Vazquez 11/26/17 Holding Cardura 10 mg by mouth daily at bedtime, metoprolol 25 mg by mouth twice a day. Off Bernnen-Synephrine, currently borderline hypotensive s/p aortogram and angiogram 11/[address] Vazquez Plaquenil 200 mg daily Plavix 75 mg daily Aspirin 161 mg by mouth daily US of RUE -catheter fragment in right forearm, thrombosed and less chance of dislodgment. I discussed with Dr. Vazquez no intervention needed per him GI: Renal diet. FEN/RENAL: ESRD Hemodialysis Thursday/Thursday/Thursday per nephrology. Scheduled for dialysis today 11/27 Renvela 2400 mg by mouth 3 times a day ID: Gangrene toes right foot, left finger. No acute intervention for gangrene at this time Blood cultures from 11/20 no growth to date, repeat blood cultures today due to leukocytosis On cefepime 1 g IV every 24 hours. Wound care following. Management per Dr. Vazquez. HEME: Chronic anemia Erythropoietin 5000 units with dialysis Folic acid 1 mg by mouth daily ENDO: Diabetes mellitus, type II Low-dose insulin sliding scale AC/hs PROPH: Heparin 5000 subcutaneous to 12 for DVT prophylaxis-resumed. Protonix 40 mg by mouth daily for stress ulcer prophylaxis. ACCESS: PIV providing adequate access at this time. Level II Transfer to Med surg. hepas consulted Problem Qualifiers (1) Hypertension: Qualified Codes: I10 - Essential (primary) hypertension Caty Salazar MD Nov 28, 2017 10:57
--- NOTE | 2017-11-28 11:28 | HHI.NPPN ---
Subjective General Problems: Anemia Renal Failure: Chronic, End Stage Renal Disease History of Present Illness 57 year old BF with ESRD PVD S/P ileo fem / fem pop bypass Review of Systems General Constitutional: Fatigue Musculoskeletal MS: Pain/Stiffness MS Remarks right foot pain Objective Data Data Vital Signs Date Time Temp Pulse Resp B/P (MAP) Pulse Ox O2 Delivery O2 Flow Rate FiO2 11/28/17 08:12 100 Nasal Cannula 2.00 11/28/17 08:00 99.5 93 11 149/66 (93) 100 11/28/17 08:00 92 11/28/17 06:00 106 11/28/17 04:00 98 11/28/17 04:00 98.6 98 11 136/63 (87) 100 11/28/17 02:00 96 11/28/17 00:00 98.6 104 13 143/62 (89) 100 11/28/17 00:00 104 11/27/17 22:00 98 11/27/17 20:00 96 11/27/17 20:00 98.3 96 13 144/55 (84) 100 11/27/17 19:47 100 Nasal Cannula 2.00 11/27/17 18:00 104 11/27/17 16:00 98.5 94 10 116/55 (75) 100 11/27/17 16:00 94 11/27/17 14:00 98 11/27/17 12:00 98.1 100 15 118/60 (79) 100 11/27/17 12:00 102 -: 11/28/17 0536 11/28/17 0536 Physical Exam General Appearance: Well Developed, No Acute Distress, Malnourished Eyes Eye Exam: Pupils Equal Throat Throat Exam: Oral Mucosa [place] & Moist Neck Neck Exam: Neck Supple Pulmonary Resp Exam: Clear Bilaterally, Breath Sounds Equal Cardiology CV Exam: Regular, Normal Sinus Rhythm Gastrointestinal/Abdomen GI Exam: Soft, Non-Tender, Bowel Sounds Present Musculoskeletal MS Exam: Normal Tone, Atrophy Integumentary Skin Exam: Warm, Dry Extremeties Extremities Exam: No Edema Neurologic Neuro Exam: Alert, Awake, Oriented, Speech Clear, Moving All Extremities Psychiatric Psych Exam: Appropriate Responses Assessment/Plan Discussed Condition With: Patient Assessment Summary: Anemia of CKD, [place] Hyperparathyroid, Malnutrition, Hypotension, End Stage Renal Disease Problem List: (1) ESRD (end stage renal disease) on dialysis ICD Codes: N18.6 - End stage renal disease; Z99.2 - Dependence on renal dialysis Status: Chronic Plan: Continue HD MWF, had dialysis yesterday, 2 liters removed. Avoid Gadolinium. Avoid IVF administration. Monitor fluid and electrolytes. High protein diet. Renvela; evaluate phosphorus intermittently. (2) DM (diabetes mellitus) ICD Codes: E11.9 - Type 2 diabetes mellitus without complications Status: Chronic Plan: Maintain glucose 140-180 mg/dL. (3) Metabolic bone disease ICD Codes: E88.9 - Metabolic disorder, unspecified; M90.80 - Osteopathy in diseases classified elsewhere, unspecified site Status: Acute Plan: Her diet is high protein, low phosphorus. On Renvela. (4) Gangrene of foot ICD Codes: I96 - Gangrene, not elsewhere classified Status: Acute Plan: Continue Wound care Vascular surgery is following, s/p ileofemoral and Fem-Pop bypass surgery. Consider podiatry evaluation as well. She also has ischemia of the access hand. Will need DRIL procedure. (5) Anemia of renal disease ICD Codes: D63.1 - Anemia in chronic kidney disease Status: Chronic Plan: hemoglobin is currently acceptable, monitor. Epogen as needed. Charisse Schultz MD Nov 28, 2017 11:28
[2017-11-28] MEDS: DEXTROSE 10% INJ 500 ML IV SCH (11:45)
[2017-11-28] MEDS: oxyCODONE/ACETAMINOPHEN 7.5 MG/325 MG TAB PO PRN (17:14)
[2017-11-28] MEDS: MORPHINE SULFATE 2 MG/ML INJ IV PRN (20:15)
[2017-11-29] VITALS (8 sets, daily range): BP systolic 113–149; BP diastolic 56–73; PULSE 84–106; RESP 10–25; TEMP 97.6–99.3; O2SAT 94–100
[2017-11-29 06:05] LABS: AUTOMATED NEUTROPHIL # 8.1 TH/MM3 (1.8-7.7); BASOPHIL % 0.5 % (0.0-2.0); EOSINOPHIL # 0.3 TH/MM3 (0-0.4); EOSINOPHIL % 2.4 % (0.0-4.0); HEMATOCRIT 25.1 % (35.0-46.0); HEMOGLOBIN 8.3 GM/DL (11.6-15.3); LYMPH % 10.2 % (9.0-44.0); LYMPHOCYTE # 1.1 TH/MM3 (1.0-4.8); MEAN CELL VOLUME 91.4 FL (80.0-100.0); MEAN CORPUSCULAR HEMOGLOBIN 30.2 PG (27.0-34.0); MEAN CORPUSCULAR HGB CONC 33.1 % (32.0-36.0); MEAN PLATELET VOLUME 8.9 FL (7.0-11.0); MONO % 12.8 % (0.0-8.0); MONOCYTE # 1.4 TH/MM3 (0-0.9); NEUT % 74.1 % (16.0-70.0); PLATELET COUNT 248 TH/MM3 (150-450); RED BLOOD COUNT 2.74 MIL/MM3 (4.00-5.30); RED CELL DISTRIBUTION WIDTH 16.7 % (11.6-17.2); WHITE BLOOD COUNT 10.9 TH/MM3 (4.0-11.0)
[2017-11-29] MEDS: oxyCODONE/ACETAMINOPHEN 7.5 MG/325 MG TAB PO PRN (06:18)
[2017-11-29 06:30] LABS: ALBUMIN 2.3 GM/DL (3.4-5.0); ALKALINE PHOSPHATASE 109 U/L (45-117); ALT (GPT) 13 U/L (10-53); AST (GOT) 23 U/L (15-37); BICARBONATE 28.2 MEQ/L (21.0-32.0); BLOOD UREA NITROGEN 43 MG/DL (7-18); CALCIUM 9.5 MG/DL (8.5-10.1); CHLORIDE 99 MEQ/L (98-107); CREATININE 8.63 MG/DL (0.50-1.00); GLOMERULAR FILTRATION RATE 6 ML/MIN (>89); GLUCOSE,RANDOM 104 MG/DL (74-106); SODIUM (NA) 139 MEQ/L (136-145); TOTAL BILIRUBIN ADULT 0.7 MG/DL (0.2-1.0); TOTAL PROTEIN 7.1 GM/DL (6.4-8.2)
[2017-11-29 06:41] LABS: OVALOCYTES 1+ (NORMAL); TARGET CELLS 1+ (NORMAL)
[2017-11-29] MEDS: INSULIN ASPART SUPPLEMENTAL SCALE SQ SCH ×4 (08:00→21:53)
[2017-11-29] MEDS: SODIUM CHLORIDE 0.9% FLUSH 10 ML FLUSH IV FLUSH SCH ×2 (09:00→21:43)
[2017-11-29] MEDS: FOLIC ACID 1 MG TAB PO SCH (10:13)
[2017-11-29] MEDS: DOCUSATE SODIUM 50 MG/SENNA 8.6 MG TAB PO SCH ×2 (10:13→21:40)
[2017-11-29] MEDS: GABAPENTIN 100 MG CAP PO SCH ×3 (10:13→16:47)
[2017-11-29] MEDS: CLOPIDOGREL 75 MG TAB PO SCH (10:13)
[2017-11-29] MEDS: HYDROXYCHLOROQUINE SULFATE 200 MG TAB PO SCH (10:13)
[2017-11-29] MEDS: PANTOPRAZOLE SOD 40 MG DELAYED RELEASE TAB PO SCH (10:13)
[2017-11-29] MEDS: SEVELAMER CARBONATE 800 MG TAB PO SCH ×3 (10:14→16:46)
[2017-11-29] MEDS: ASPIRIN 81 MG CHEW TAB PO SCH (10:14)
[2017-11-29] MEDS: CEFEPIME INJ 1,000 MG in SODIUM CHLORIDE 0.9% INJ 100 ML IV SCH (10:16)
--- NOTE | 2017-11-29 10:16 | PD.VS.PN ---
Subjective POD #: 3 Procedure(s): R iliofemoral bypass, fem-BK pop Subjective/Hospital Course persistently confused and perseverating but no focal neuro deficits doesn't endorse L hand or R foot pain Objective Vitals/I&O Date Time Temp Pulse Resp B/P (MAP) Pulse Ox O2 Delivery O2 Flow Rate FiO2 11/29/17 08:00 100 Nasal Cannula 2.00 11/29/17 04:00 84 11/29/17 04:00 99.1 84 10 149/72 (97) 100 11/29/17 00:00 99.3 84 11 125/60 (81) 100 11/29/17 00:00 84 11/28/17 20:00 110 11/28/17 20:00 99.0 110 26 131/63 (85) 96 11/28/17 19:46 100 Nasal Cannula 2.00 11/28/17 16:00 82 11/28/17 16:00 98.6 79 11 122/60 (80) 100 11/28/17 12:00 99.6 101 14 149/66 (93) 100 11/28/17 12:00 104 11/29/17 11/29/17 11/29/17 07:00 15:00 23:00 Intake Total 120 ml Output Total 0 ml Balance 120 ml Exam: R groin and leg incisions c/d/i R groin with Provena in place R foot with dry gangrene toes 2-4 Strong Doppler signal R DP Laboratory Laboratory Tests Test 11/29/17 05:10 White Blood Count 10.9 Red Blood Count 2.74 Hemoglobin 8.3 Hematocrit 25.1 Mean Corpuscular Volume 91.4 Mean Corpuscular Hemoglobin 30.2 Mean Corpuscular Hemoglobin Concent 33.1 Red Cell Distribution Width 16.7 Platelet Count 248 Mean Platelet Volume 8.9 Neutrophils (%) (Auto) 74.1 Lymphocytes (%) (Auto) 10.2 Monocytes (%) (Auto) 12.8 Eosinophils (%) (Auto) 2.4 Basophils (%) (Auto) 0.5 Neutrophils # (Auto) 8.1 Lymphocytes # (Auto) 1.1 Monocytes # (Auto) 1.4 Eosinophils # (Auto) 0.3 Basophils # (Auto) 0.0 CBC Comment AUTO DIFF Differential Comment AUTO DIFF CONFIRMED Target Cells 1+ Ovalocytes 1+ Blood Urea Nitrogen 43 Creatinine 8.63 Random Glucose 104 Total Protein 7.1 Albumin 2.3 Calcium Level 9.5 Alkaline Phosphatase 109 Aspartate Amino Transf (AST/SGOT) 23 Alanine Aminotransferase (ALT/SGPT) 13 Total Bilirubin 0.7 Sodium Level 139 Potassium Level 4.2 Chloride Level 99 Carbon Dioxide Level 28.2 Anion Gap 12 Estimat Glomerular Filtration Rate 6 Date/Time Source Procedure Growth Status 11/28/17 21:10 Blood Peripheral Aerobic Blood Culture Pending Received 11/28/17 21:10 Blood Peripheral Anaerobic Blood Culture Pending Received Assessment and Plan Plan POD#3 s/p R groin reconstruction and distal bypass; much improved perfusion to foot 1. Normalize with all meds, HD, limit pain meds given mental status 2. OOB and ambulate as tolerated 3. Likely to need toe amputations at some point: either next week or as outpatient 4. Will need L UE DRIL when recovers more from R LE bypass, not necessarily this admission Discharge Planning end of week to rehab Don Ramirez MD Nov 29, 2017 10:16
[2017-11-29] MEDS: DEXTROSE 10% INJ 500 ML IV SCH (11:45)
[2017-11-29] MEDS: HEPARIN SODIUM - SQ 10,000 UNITS/ML VIAL SQ SCH (12:34)
--- NOTE | 2017-11-29 15:13 | HHI.NPPN ---
Subjective General Problems: Anemia Renal Failure: Chronic, End Stage Renal Disease History of Present Illness 57 year old BF with ESRD PVD S/P ileo fem / fem pop bypass Review of Systems General Constitutional: Fatigue Musculoskeletal MS: Pain/Stiffness MS Remarks right foot pain Objective Data Data Vital Signs Date Time Temp Pulse Resp B/P (MAP) Pulse Ox O2 Delivery O2 Flow Rate FiO2 11/29/17 14:40 97.6 101 19 142/73 (96) 94 11/29/17 12:00 99 11/29/17 12:00 97.8 96 20 113/56 (75) 100 11/29/17 08:00 100 Nasal Cannula 2.00 11/29/17 08:00 106 11/29/17 08:00 98.8 98 25 137/66 (89) 100 11/29/17 07:18 20 11/29/17 04:00 84 11/29/17 04:00 99.1 84 10 149/72 (97) 100 11/29/17 00:00 99.3 84 11 125/60 (81) 100 11/29/17 00:00 84 11/28/17 20:00 110 11/28/17 20:00 99.0 110 26 131/63 (85) 96 11/28/17 19:46 100 Nasal Cannula 2.00 11/28/17 16:00 82 11/28/17 16:00 98.6 79 11 122/60 (80) 100 -: 11/29/17 0510 11/29/17 0510 Microbiology 11/28/17 Aerobic Blood Culture - Preliminary, Resulted NO GROWTH IN 1 DAY 11/28/17 Anaerobic Blood Culture - Preliminary, Resulted NO GROWTH IN 1 DAY 11/28/17 Aerobic Blood Culture - Preliminary, Resulted NO GROWTH IN 1 DAY 11/28/17 Anaerobic Blood Culture - Preliminary, Resulted NO GROWTH IN 1 DAY Physical Exam General Appearance: Well Developed, No Acute Distress, Malnourished Eyes Eye Exam: Pupils Equal Throat Throat Exam: Oral Mucosa [place] & Moist Neck Neck Exam: Neck Supple Pulmonary Resp Exam: Clear Bilaterally, Breath Sounds Equal Cardiology CV Exam: Regular, Normal Sinus Rhythm Gastrointestinal/Abdomen GI Exam: Soft, Non-Tender, Bowel Sounds Present Musculoskeletal MS Exam: Normal Tone, Atrophy Integumentary Skin Exam: Warm, Dry Extremeties Extremities Exam: No Edema Neurologic Neuro Exam: Alert, Awake, Oriented, Speech Clear, Moving All Extremities Psychiatric Psych Exam: Appropriate Responses Assessment/Plan Discussed Condition With: Patient Assessment Summary: Anemia of CKD, [place] Hyperparathyroid, Malnutrition, Hypotension, End Stage Renal Disease Problem List: (1) ESRD (end stage renal disease) on dialysis ICD Codes: N18.6 - End stage renal disease; Z99.2 - Dependence on renal dialysis Status: Chronic Plan: Continue HD MW, had dialysis Thursday, 2 liters removed. Avoid Gadolinium. Avoid IVF administration. Monitor fluid and electrolytes. High protein diet. Renvela; evaluate phosphorus intermittently. Dr. Ahumada to follow (2) DM (diabetes mellitus) ICD Codes: E11.9 - Type 2 diabetes mellitus without complications Status: Chronic Plan: Maintain glucose 140-180 mg/dL. (3) Metabolic bone disease ICD Codes: E88.9 - Metabolic disorder, unspecified; M90.80 - Osteopathy in diseases classified elsewhere, unspecified site Status: Acute Plan: Her diet is high protein, low phosphorus. On Renvela. (4) Gangrene of foot ICD Codes: I96 - Gangrene, not elsewhere classified Status: Acute Plan: Continue Wound care Vascular surgery is following, s/p ileofemoral and Fem-Pop bypass surgery. Consider podiatry evaluation as well. She also has ischemia of the access hand. Will need DRIL procedure. (5) Anemia of renal disease ICD Codes: D63.1 - Anemia in chronic kidney disease Status: Chronic Plan: hemoglobin is currently acceptable, monitor. Epogen as needed. Charisse Schultz MD Nov 29, 2017 15:13
--- NOTE | 2017-11-29 20:01 | HHI.CCPN ---
Subjective Remarks/Hospital Course 57-year-old female with past medical history of diabetes, hypertension, hyperlipidemia, coronary artery disease with prior stents, chronic systolic heart failure (EF 30-35%), end-stage renal disease on hemodialysis Thursday/Thursday/Thursday, peripheral neuropathy, chronic anemia who presented to to [facility] with two week history of right foot pain and drainage. She was admitted to to the hospitalist service and started on cefepime. Today she has undergone an aortogram with upper and lower extremity angiogram by Dr. Vazquez. Intraoperatively she received 250 of crystalloid. No EBL. She received general anesthesia, fentanyl 50 g IV, propofol, morphine 4 mg IV. She underwent dialysis yesterday with 1 kg removal. She was started on phenylephrine during the case and remains on this vasopressor. Was initially at 70 mcg/m upon arrival to [facility]. Now at 50 mcg/m. She denies CP/SOB 11/25/17: remains on selene-synephrine at 50 mcg/min to keep MAP >65. Very tender to touch on right foot and left hand. OR with Dr. vazquez tomorrow for RLE revascularization. POD#1 diagnostic angiography L UE and R LE. Per Dr. Vazquez, will need Left UE DRIL (distal revascularization interval ligation) after recovery from R LE revascularization 11/26/17: Patient seen after OR. Off neosynephrine. Underwent R iliofemoral bypass and R fem-pop bypass by Dr. Vazquez. Complaints of postop pain 11/27/17: Getting HD today, remains off pressors since surgery. Vascular acces team noted possible old residual Angiocath in midforearm, probably right radial vein. I discussed with Dr. Vazquez, will check venous US/duplex to confirm 11/28/17: Hemodynamically stable, mild increased in WBC. RN reported intermittent confusion, On my exam alert awake, oriented x3 Subjective 11/29: Resting in bed in no acute distress. Transferred to . Remained confused. White blood cell count normalized today. Objective Vital Signs Date Time Temp Pulse Resp B/P (MAP) Pulse Ox O2 Delivery O2 Flow Rate FiO2 11/29/17 14:40 97.6 101 19 142/73 (96) 94 11/29/17 08:00 Nasal Cannula 2.00 Intake and Output 11/29/17 11/29/17 11/30/17 08:00 16:00 00:00 Intake Total 120 ml 75 ml Output Total 0 ml Balance 120 ml 75 ml Result Diagram: 11/29/17 0510 11/29/17 0510 Other Results Microbiology Date/Time Source Procedure Growth Status 11/28/17 21:10 Blood Peripheral Aerobic Blood Culture - Preliminary NO GROWTH IN 1 DAY Resulted 11/28/17 21:10 Blood Peripheral Anaerobic Blood Culture - Preliminary NO GROWTH IN 1 DAY Resulted Imaging Last Impressions Upper Extremity Ultrasound 11/27/17 0000 Signed Impressions: Service Date/Time: Monday, November 27, 2017 11:25 - CONCLUSION: 1. Catheter fragment in right forearm as above. Jose L Vidal MD Chest X-Ray 11/26/17 0600 Signed Impressions: Service Date/Time: November 05:40 - CONCLUSION: Cardiomegaly with bilateral pulmonary infiltrates are unchanged. Trever Carballo Jr., MD Lower Extremity Ultrasound 11/21/17 0000 Signed Impressions: Service Date/Time: Tuesday, November 21, 2017 08:32 - CONCLUSION: No DVT. Martin Deleon MD Aorta w/Runoff CTA 11/21/17 0000 Signed Impressions: Service Date/Time: Thursday, November 23, 2017 15:54 - CONCLUSION: 1. Moderate inflow stenosis on the right. Left inflow is calcified but patent. 2. Severe outflow and runoff disease bilaterally as detailed above discussion. 3. Enlarging right renal mass. This now measures 6.1 cm where previously measured 5.5 cm. The left kidney is atrophic. Trever Carballo Jr., MD Foot X-Ray 11/20/172032 Signed Impressions: Service Date/Time: Monday, November 20, 2017 20:44 - CONCLUSION: 1. Eopenia and osteophytic change. 2. No evidence to suggest osteomyelitis. Baudilio Schuster MD Objective Remarks GENERAL: 57-year-old AA female, resting in bed in no acute distress SKIN: Warm and dry. HEAD: Atraumatic. Normocephalic. EYES: Pupils equal and round, 2 mm reactive. No scleral icterus. No injection or drainage. ENT: No nasal bleeding or discharge. Mucous membranes pink and moist. NECK: Trachea midline. No JVD. CARDIOVASCULAR: RRR. S1, S2 no S4. 2/6 pansystolic murmur RESPIRATORY: Clear to auscultation. No wheezes rales or rhonchi GASTROINTESTINAL: Abdomen soft, non-tender, nondistended. Bowel sounds present. MUSCULOSKELETAL/VASCULAR: AV fistula in left upper arm with palpable thrill. There is necrosis overlying distal phalanx of left fourth digit. Necrosis of 2nd, 3rd and 4th digit of right foot.. Doppler pulse to bilateral DP. ? On US possible broken catheter in R radial vein NEUROLOGICAL: Awake and alert. No obvious cranial nerve deficits. Motor grossly within normal limits. Normal speech. A/P Assessment and Plan NEURO/PSYCH: Acute delirium Peripheral neuropathy History of glaucoma Acetaminophen as needed for pain/fever Gabapentin 100 mg by mouth 3 times a day Current haloperidol 2 mg IV every 4 hours. As needed Agitation RESP: Currently on room air Incentive spirometry every hour awake CV: s/p R iliofemoral bypass and R fem-pop bypass by Dr. Vazquez 11/26/17 Peripheral arterial disease Coronary artery disease with prior stents Essential hypertension at baseline Hyperlipidemia Chronic systolic heart failure ejection fraction 35% 2006 Severe TR Holding doxazosin 2 mg by mouth daily at bedtime, metoprolol 25 mg by mouth twice a day light of the recent vasopressin usage s/p aortogram and angiogram 11/[address] Vazquez Hydroxychloroquine 200 mg daily Clopidogrel 75 mg daily Aspirin 162 mg by mouth daily US of RUE -catheter fragment in right forearm, thrombosed and less chance of dislodgment. Dr. Salazar documented that he discussed with Dr. Vazquez no intervention needed per him GI: Clear heart healthy diet? Pantoprazole 40 mg by mouth daily for GI prophylaxis FEN/RENAL: ESRD Hemodialysis Thursday/Thursday/Thursday per nephrology. Sevelamer 2400 mg by mouth 3 times a day cinacalcet 60 mg twice a day currently on hold ID: Dry gangrene 2 through 4 toes right foot, left finger. No acute intervention for gangrene at this time possibly need amputation during this admission or as outpatient Blood cultures from 11/20 no growth to date, repeat blood cultures today due to leukocytosis On cefepime 1 g IV every 24 hours since 11/21 Wound care following. Management per Dr. Vazquez. HEME: Chronic anemia of chronic disease Erythropoietin 5000 units with dialysis Folic acid 1 mg by mouth daily ENDO: Diabetes mellitus, type II Holding Tradjenta 5 milligrams daily Low-dose insulin sliding scale AC/hs PROPH: Heparin 5000 subcutaneous to 12 for DVT prophylaxis-resumed. Protonix 40 mg by mouth daily for stress ulcer prophylaxis. ACCESS: PIV providing adequate access at this time. Level II Transfer to Med surg. hepas consulted Tr Bay MD Nov 29, 2017 20:01
[2017-11-30] VITALS (9 sets, daily range): BP systolic 141–168; BP diastolic 67–84; PULSE 88–112; RESP 18; TEMP 98.4–99.9; O2SAT 96–100
[2017-11-30] MEDS: HEPARIN SODIUM - SQ 10,000 UNITS/ML VIAL SQ SCH ×2 (01:36→12:53)
[2017-11-30] MEDS: HYDROXYCHLOROQUINE SULFATE 200 MG TAB PO SCH (07:58)
[2017-11-30] MEDS: GABAPENTIN 100 MG CAP PO SCH ×3 (07:58→17:51)
[2017-11-30] MEDS: FOLIC ACID 1 MG TAB PO SCH (07:58)
[2017-11-30] MEDS: CLOPIDOGREL 75 MG TAB PO SCH (07:58)
[2017-11-30] MEDS: ASPIRIN 81 MG CHEW TAB PO SCH (07:58)
[2017-11-30] MEDS: SEVELAMER CARBONATE 800 MG TAB PO SCH ×4 (07:59→17:00)
[2017-11-30] MEDS: PANTOPRAZOLE SOD 40 MG DELAYED RELEASE TAB PO SCH (07:59)
[2017-11-30] MEDS: DOCUSATE SODIUM 50 MG/SENNA 8.6 MG TAB PO SCH ×2 (07:59→20:34)
[2017-11-30] MEDS: INSULIN ASPART SUPPLEMENTAL SCALE SQ SCH ×4 (08:00→20:38)
[2017-11-30] MEDS: SODIUM CHLORIDE 0.9% FLUSH 10 ML FLUSH IV FLUSH SCH ×2 (08:04→20:34)
--- NOTE | 2017-11-30 09:30 | HHI.NPPN ---
Subjective General Problems: Anemia Renal Failure: Chronic, End Stage Renal Disease Interval History Seen during dialysis. Lower extremities are warm. She is sleeping, not in distress. ([place]) Review of Systems General Constitutional: Fatigue ([place]) Musculoskeletal MS: Pain/Stiffness MS Remarks right foot pain improved ([place]) Objective Data Data Vital Signs Date Time Temp Pulse Resp B/P (MAP) Pulse Ox O2 Delivery O2 Flow Rate FiO2 11/30/17 08:00 99.0 98 18 148/73 (98) 98 11/30/17 05:22 99.4 88 18 153/71 (98) 96 11/30/17 00:23 99.5 98 18 157/77 (103) 96 11/29/17 20:23 100 Nasal Cannula 2.00 11/29/17 20:14 96 11/29/17 20:00 98.9 102 20 114/68 (83) 94 11/29/17 14:40 97.6 101 19 142/73 (96) 94 11/29/17 12:00 99 11/29/17 12:00 97.8 96 20 113/56 (75) 100 ([place]) -: 11/29/17 0510 11/29/17 0510 Physical Exam General Appearance: Well Developed, No Acute Distress, Malnourished ([place]) Eyes Eye Exam: Pupils Equal ([place]) Throat Throat Exam: Oral Mucosa [place] & Moist ([place]) Neck Neck Exam: Neck Supple ([place]) Pulmonary Resp Exam: Clear Bilaterally, Breath Sounds Equal, No Distress ([place]) Cardiology CV Exam: Regular, Normal Sinus Rhythm ([place]) Gastrointestinal/Abdomen GI Exam: Soft, Non-Tender, Bowel Sounds Present ([place]) Musculoskeletal MS Exam: Normal Tone, Atrophy ([place]) Integumentary Skin Exam: Warm, Dry ([place]) Extremeties Extremities Exam: No Edema ([place]) Neurologic Neuro Exam: Alert, Awake, Oriented, Speech Clear, Moving All Extremities ([place]) Psychiatric Psych Exam: Appropriate Responses ([place]) Assessment/Plan Discussed Condition With: Patient Assessment Summary: Anemia of CKD, [place] Hyperparathyroid, Malnutrition, Hypotension, End Stage Renal Disease Problem List: (1) ESRD (end stage renal disease) on dialysis ICD Codes: N18.6 - End stage renal disease; Z99.2 - Dependence on renal dialysis Status: Chronic Plan: Seen during dialysis on a 3K, 350 BFR, goal 2L Continue HD MWF Avoid Gadolinium. Avoid IVF administration. Monitor fluid and electrolytes. High protein diet. Continue Renvela; evaluate phosphorus intermittently. (2) DM (diabetes mellitus) ICD Codes: E11.9 - Type 2 diabetes mellitus without complications Status: Chronic Plan: Maintain glucose 140-180 mg/dL. (3) Metabolic bone disease ICD Codes: E88.9 - Metabolic disorder, unspecified; M90.80 - Osteopathy in diseases classified elsewhere, unspecified site Status: Acute Plan: Her diet is high protein, low phosphorus. On Renvela. (4) Gangrene of foot ICD Codes: I96 - Gangrene, not elsewhere classified Status: Acute Plan: Continue Wound care Vascular surgery is following, s/p ileofemoral and Fem-Pop bypass surgery. May need amputation in upcoming week or two She also has ischemia of the access hand. Will need DRIL procedure at later date. (5) Anemia of renal disease ICD Codes: D63.1 - Anemia in chronic kidney disease Status: Chronic Plan: hemoglobin is currently acceptable, monitor. Increase dose of Epogen. ([place]) Plan patient was seen and examined. Dialysis today. Needs better control of phosphorus. Continue binders. (Nazario Ahumada MD) [place] Nov 30, 2017 09:30 Nazario Ahumada MD Nov 30, 2017 10:07
[2017-11-30] MEDS: EPOETIN ALFA 10,000 UNITS/ML VIAL IV PUSH PRN (10:43)
[2017-11-30] MEDS: DEXTROSE 10% INJ 500 ML IV SCH (11:45)
[2017-11-30] MEDS: SODIUM CHLORIDE 0.9% FLUSH 10 ML FLUSH IV FLUSH PRN (12:16)
[2017-11-30] MEDS: CEFEPIME INJ 1,000 MG in SODIUM CHLORIDE 0.9% INJ 100 ML IV SCH (12:16)
--- NOTE | 2017-11-30 15:15 | HHI.PR ---
Subjective Remarks Follow-up for multiple medical conditions assessment assessment plan Patient continues to be confused. She was able, location. She tried to tell me her name but had a hard time saying her name. When answer the date she stated . When I would ask her other question she continues to state for . Then I asked patient as was her birthday she stated yes. Which I confirmed in the EMR system. Objective Vitals Vital Signs Date Time Temp Pulse Resp B/P (MAP) Pulse Ox O2 Delivery O2 Flow Rate FiO2 11/30/17 12:51 98.4 112 18 168/84 (112) 99 11/30/17 12:20 98 11/30/17 08:00 99.0 98 18 148/73 (98) 98 11/30/17 08:00 90 11/30/17 05:22 99.4 88 18 153/71 (98) 96 11/30/17 00:23 99.5 98 18 157/77 (103) 96 11/29/17 20:23 100 Nasal Cannula 2.00 11/29/17 20:14 96 11/29/17 20:00 98.9 102 20 114/68 (83) 94 I/O 11/29/17 11/29/17 11/29/17 11/30/17 11/30/17 11/30/17 07:00 15:00 23:00 07:00 15:00 23:00 Intake Total 120 ml 75 ml 480 ml Output Total 0 ml 2000 ml Balance 120 ml 75 ml 480 ml -2000 ml Intake Oral 120 ml 75 ml 480 ml Output Urine Total 0 ml Hemodialysis 2000 ml # Voids 0 # Bowel Movements 0 0 Result Diagram: 11/29/17 0510 11/29/17 0510 Objective Remarks GENERAL: in NAD but is drooling. NECK: Supple, trachea midline. No JVD or lymphadenopathy. CARDIOVASCULAR: Regular rate and rhythm without murmurs, gallops, or rubs. RESPIRATORY: Breath sounds equal bilaterally. No accessory muscle use. GASTROINTESTINAL: Abdomen soft, non-tender, nondistended. MUSCULOSKELETAL: right toes shows ulcerating/gangrenous lesion. Medications and IVs Current Medications Vancomycin HCl 1000 mg/Sodium Chloride 250 ml @ 250 mls/hr ONCE STAT IV Last administered on 11/20/17t 23:27; Start 11/20/17 at 22:46; Stop 11/20/17 at 23 :45; Status DC Piperacillin Sod/ Tazobactam Sod 50 ml @ 100 mls/hr ONCE ONCE IV Last administered on 11/20/17t 22:58; Start 11/20/17 at 23:00; Stop 11/20/17 at 23 :29; Status DC Dextrose (D50w (Vial) Inj) 50 ml UNSCH PRN IV PUSH HYPOGLYCEMIA-SEE COMMENTS; Start 11/20/17 at 23:00 Glucagon (Glucagon Inj) 1 mg UNSCH PRN OTHER HYPOGLYCEMIA-SEE COMMENTS; Start 11/20/17 at 23:00 Insulin Aspart (NovoLOG SUPPLEMENTAL SCALE) 1 ACHS SLIDING SCALE SQ Last administered on 11/25/17 17:00; Start 11/21/17 at 08:00 Cefepime HCl 1000 mg/Sodium Chloride 100 ml @ 200 mls/hr Q24H IV Last administered on 11/30/17 12:16; Start 11/21/17 at 09:00 Sodium Chloride (NS Flush) 2 ml UNSCH PRN IV FLUSH FLUSH AFTER USING IV ACCESS Last administered on 11/30/17 12:16; Start 11/20/17 at 23:00 Sodium Chloride (NS Flush) 2 ml BID IV FLUSH Last administered on 11/30/17 08: 04; Start 11/21/17 at 09:00 Ondansetron HCl (Zofran Inj) 4 mg Q6H PRN IVP NAUSEA OR VOMITING; Start at 23:00 Acetaminophen (Tylenol) 650 mg Q6H PRN PO FEVER/PAIN SCALE 1 TO 2 Last administered on 11/23/17 00:48; Start 11/20/17 at 23:00 Acetaminophen/ Hydrocodone Bitart ([place] 5-325 Mg) 1 tab Q4H PRN PO PAIN SCALE 3 TO 5 Last administered on 11/26/17 09:42; Start 11/20/17 at 23:00; Stop 11/26/17 at 20:38; Status DC Morphine Sulfate (Morphine Inj) 2 mg Q3H PRN IV PUSH BREAKTHROUGH PAIN Last administered on 11/26/17 17:59; Start 11/20/17 at 23:00; Stop 11/26/17 at 20:34 ; Status DC Senna/Docusate Sodium ([place]lsy-Colace) 1 tab BID PO Last administered on 11/30/17 07:59; Start 11/21/17 at 09:00 Magnesium Hydroxide (Milk Of Magnesia Liq) 30 ml Q12H PRN PO Mild constipation ; Start 11/20/17 at 23:00 Sennosides (Senokot) 17.2 mg Q12H PRN PO Moderate constipation; Start at 23:00 Bisacodyl (Dulcolax Supp) 10 mg DAILY PRN RECTAL SEVERE CONSITIPATION; Start 11/20/17 at 23:00 Lactulose (Lactulose Liq) 30 ml DAILY PRN PO SEVERE CONSITIPATION; Start 11/20 at 23:00 Aspirin (Aspirin Chew) 162 mg DAILY PO Last administered on 11/30/17 07:58; Start 11/21/17 at 09:00 Clopidogrel Bisulfate (Plavix) 75 mg DAILY PO Last administered on 11/30/17 07: 58; Start 11/21/17 at 09:00 Doxazosin Mesylate (Cardura) 2 mg HS PO Last administered on 11/21/17t 21:13; Start 11/21/17 at 21:00; Status Future Hold Folic Acid (Folate) 1 mg DAILY PO Last administered on 11/30/17 07:58; Start 11/21/17 at 09:00 Gabapentin (Neurontin) 100 mg TID PO Last administered on 11/30/17 07:58; Start 11/21/17 at 09:00 Hydroxychloroquine Sulfate (Plaquenil) 200 mg DAILY PO Last administered on 11/30 07:58; Start 11/21/17 at 09:00 Metoprolol Tartrate (Lopressor) 25 mg BID PO Last administered on 11/24/17 11: 54; Start 11/21/17 at 09:00; Status Future Hold Heparin Sodium (Porcine) (Heparin Inj) 5,000 units Q12HR SQ Last administered on 11/26/17 09:49; Start 11/21/17 at 09:00; Stop 11/26/17 at 16:27; Status DC Sodium Chloride 1,000 ml @ 0 mls/hr Q0M PRN OTHER For Prime & Rinse Back; Start 11/21/17 at 09:38 Heparin Sodium (Porcine) (Heparin Inj) 8,000 units UNSCH PRN IV FLUSH WITH DIALYSIS; Start 11/21/17 at 09:45 Sodium Chloride 1,000 ml @ 200 mls/hr Q5H PRN IV WITH DIALYSIS; Start at 09:38 Sodium Chloride 1,000 ml @ 0 mls/hr Q0M PRN OTHER WITH DIALYSIS; Start at 09:38 Mannitol (Mannitol Inj) 12.5 gm UNSCH PRN IV WITH DIALYSIS; Start 11/21/17 at 09:45 Albumin Human 100 ml @ 60 mls/hr UNSCH PRN IV WITH DIALYSIS Last administered on 11/25/17 09:26; Start 11/21/17 at 09:45 Sodium Chloride (NS Flush) 5 ml UNSCH PRN IV FLUSH WITH DIALYSIS; Start at 09:45 Heparin Sodium (Porcine) (Heparin Inj) UNSCH PRN .XX WITH DIALYSIS; Start at 09:45 Gentamicin Sulfate (Gentamicin (Dialysis) Inj) 20 mg UNSCH PRN OTHER WITH DIALYSIS; Start 11/21/17 at 09:45 Ondansetron HCl (Zofran Inj) 4 mg UNSCH PRN IV PUSH WITH DIALYSIS; Start 11/21 at 09:45 Acetaminophen (Tylenol) 650 mg UNSCH PRN PO for headach, temp > 101F; Start at 09:45 Diphenhydramine HCl (Benadryl) 25 mg UNSCH PRN PO for hives/itching/anaphylaxis ; Start 11/21/17 at 09:45 Nitroglycerin (Nitrostat Sl) 0.4 mg UNSCH PRN SL CHEST PAIN; Start 11/21/17 at 09:45 Clonidine (Catapres) 0.1 mg UNSCH PRN PO for BP > 180/100 X 2 readings; Start 11/21/17 at 09:45 Epoetin [place] (Epogen Inj) 5,000 units UNSCH PRN IV PUSH WITH DIALYSIS Last administered on 11/27/17 12:22; Start 11/21/17 at 09:45; Stop 11/30/17 at 09:09 ; Status DC Gelatin (Gelfoam 12 Mm/7 Mm Top) 1 foam UNSCH PRN TOP SEE LABEL COMMENTS Last administered on 1/5/18at 12:22; Start 11/21/17 at 09:45 Acetaminophen/ Hydrocodone Bitart ([place] 10-325 Mg) 1 tab Q4H PRN PO PAIN SCALE 6 TO 10 Last administered on 11/26/17at 04:23; Start 11/21/17 at 12:00; Stop 11/26/17 at 20:38; Status DC Sevelamer Carbonate (Renvela) 1,600 mg TIDAC PO Last administered on 11/23/17at 18:14; Start 11/22/17 at 12:00; Stop 11/24/17 at 09:08; Status DC Sodium Chloride 250 ml @ 50 mls/hr Q5H IV Last administered on 11/23/17at 08:15 ; Start 11/23/17 at 08:15; Stop 11/23/17 at 13:14; Status DC Iohexol (Omnipaque 350 Inj) 99 ml STK-MED ONCE IVCONTRAST Last administered on 11/23/17at 16:24; Start 11/23/17 at 16:24; Stop 11/23/17 at 16:25; Status DC Sodium Chloride 500 ml @ 30 mls/hr [id number] PRN IV SEE LABEL COMMENTS; Start 11/23/17 at 22:15; Stop 11/26/17 at 22:14; Status DC Povidone Iodine (Betadine 5% Antisepsis Kit) 1 applic HIGH PRESSURE FIRER PRN EACH NARE SEE LABEL COMMENTS; Start 11/23/17 at 22:15; Stop 11/26/17 at 22:14; Status DC Chlorhexidine Gluconate (Chlorhexidine 2% Cloth) 3 pack HIGH PRESSURE FIRER PRN TOPICAL SEE LABEL COMMENTS; Start 11/23/17 at 22:15; Stop 11/26/17 at 22:14; Status DC Sodium Chloride 500 ml @ 50 mls/hr Q10H IV ; Start 11/24/17 at 04:45; Stop at 04:51; Status DC Sodium Chloride 250 ml @ 50 mls/hr Q5H ONCE IV ; Start 11/25/17 at 05:40; Stop 11/25/17 at 10:39; Status Cancel Sodium Chloride 250 ml @ 50 mls/hr Q5H ONCE IV Last administered on 11/24/17at 06:03; Start 11/24/17 at 06:00; Stop 11/24/17 at 10:59; Status DC Sevelamer Carbonate (Renvela) 2,400 mg TIDAC PO Last administered on 11/29/17at 13:03; Start 11/24/17 at 12:00 Protamine Sulfate (Protamine Sulfate Inj) 50 mg STK-MED ONCE .ROUTE ; Start 11/24 at 14:33; Stop 11/24/17 at 14:34; Status DC Heparin Sodium (Porcine) (Heparin Inj) 10,000 units STK-MED ONCE .ROUTE ; Start 11/24/17 at 14:33; Stop 11/24/17 at 14:34; Status DC Vancomycin HCl (Vancomycin Inj) 1,000 mg STK-MED ONCE .ROUTE Last administered on 11/24/17at 16:10; Start 11/24/17 at 14:33; Stop 11/24/17 at 14:34; Status DC Heparin Sodium/ Sodium Chloride 500 ml @ As Directed STK-MED ONCE .ROUTE Last administered on 11/24/17at 14:33; Start 11/24/17 at 14:33; Stop 11/24/17 at 14:34; Status DC Hydromorphone HCl (Dilaudid Pf Inj) 0.5 mg ONCE ONCE IV ; Start 11/24/17 at 15: 15; Stop 11/24/17 at 15:16; Status DC Ketamine HCl (Ketalar Inj) 500 mg STK-MED ONCE .ROUTE ; Start 11/24/17 at 15:21; Stop 11/24/17 at 15:22; Status DC Iohexol 50 ml @ 0 mls/hr ONCE ONCE IV Last administered on 11/24/17at 16:17; Start 11/24/17 at 16:17; Stop 11/24/17 at 16:21; Status DC Hydromorphone HCl (*DILAUDID PF INJ PERIprocedural ONLY) 1 mg STK-MED ONCE .ROUTE Last administered on 11/24/17at 17:31; Start 11/24/17 at 17:31; Stop at 17:32; Status DC Fentanyl Citrate (fentaNYL INJ) 100 mcg STK-MED ONCE .ROUTE ; Start 11/24/17 at 17:34; Stop 11/24/17 at 17:35; Status DC Morphine Sulfate (Morphine Inj) 4 mg STK-MED ONCE .ROUTE ; Start 11/24/17 at 17: 34; Stop 11/24/17 at 17:35; Status DC Miscellaneous Information ALL NURSING DEPARTME... UNSCH PRN .XX SEE LABEL COMMENTS; Start 11/24/17 at 17:45; Stop 11/25/17 at 17:44; Status DC Phenylephrine HCl (Neosynephrine Inj) 40 mg STK-MED ONCE .ROUTE ; Start 11/24/17 at 17:42; Stop 11/24/17 at 17:43; Status DC Hydromorphone HCl (Dilaudid Pf Inj) 0.5 mg Q10M PRN IV SEE LABEL COMMENTS; Start 11/24/17 at 17:45; Stop 11/24/17 at 19:30; Status DC Phenylephrine HCl 40 mg/Dextrose 500 ml @ 30 mls/hr TITRATE PRN IV Blood Pressure Management Last administered on 11/25/17at 04:27; Start 11/24/17 at 18:15 Terbutaline Sulfate (Brethine Inj) 1 mg UNSCH PRN SQ FOR EXTRAVASATION PROTOCOL ; Start 11/24/17 at 18:15 Albumin Human 50 ml @ 60 mls/hr ONCE ONCE IV ; Start 11/25/17 at 06:30; Stop 11/25/17 at 07:38; Status DC Pantoprazole Sodium (Protonix) 40 mg DAILY PO Last administered on 11/30/17at 07: 59; Start 11/25/17 at 09:00 Dextrose 500 ml @ 20 mls/hr Q24H IV ; Start 11/26/17 at 11:45 Fentanyl Citrate (fentaNYL INJ) 200 mcg STK-MED ONCE .ROUTE ; Start 11/26/17 at 12:28; Stop 11/26/17 at 12:29; Status DC Fentanyl Citrate (fentaNYL INJ) 100 mcg STK-MED ONCE .ROUTE ; Start 11/26/17 at 12:28; Stop 11/26/17 at 12:29; Status DC Morphine Sulfate (Morphine Inj) 4 mg STK-MED ONCE .ROUTE ; Start 11/26/17 at 12: 28; Stop 11/26/17 at 12:29; Status DC Protamine Sulfate (Protamine Sulfate Inj) 50 mg STK-MED ONCE .ROUTE ; Start 11/26 at 12:29; Stop 11/26/17 at 12:30; Status DC Heparin Sodium (Porcine) (Heparin Inj) 10,000 units STK-MED ONCE .ROUTE ; Start 11/26/17 at 12:29; Stop 11/26/17 at 12:30; Status DC Bupivacaine HCl (Marcaine Pf 0.5% Inj) 30 ml STK-MED ONCE .ROUTE Last administered on 11/26/17at 12:29; Start 11/26/17 at 12:29; Stop 11/26/17 at 12:30; Status DC Vancomycin HCl (Vancomycin Inj) 1,000 mg STK-MED ONCE .ROUTE Last administered on 11/26/17at 13:25; Start 11/26/17 at 12:29; Stop 11/26/17 at 12:30; Status DC Heparin Sodium/ Sodium Chloride 500 ml @ As Directed STK-MED ONCE .ROUTE Last administered on 11/26/17at 12:29; Start 11/26/17 at 12:29; Stop 11/26/17 at 12:30; Status DC Thrombin (Thrombin Top [place]) 20,000 units STK-MED ONCE .ROUTE Last administered on 11/26/17at 13:45; Start 11/26/17 at 13:45; Stop 11/26/17 at 13:46; Status DC Heparin Sodium (Porcine) (Heparin Inj) 5,000 units Q8H SQ ; Start 11/26/17 at 15: 30; Stop 11/26/17 at 19:52; Status DC Miscellaneous Information ALL NURSING DEPARTME... UNSCH PRN .XX SEE LABEL COMMENTS; Start 11/26/17 at 17:15; Stop 11/27/17 at 17:14; Status DC Heparin Sodium (Porcine) (Heparin Inj) 5,000 units Q8H SQ Last administered on 11/28/17at 00:49; Start 11/27/17 at 15:30; Stop 11/28/17 at 10:57; Status DC Morphine Sulfate (Morphine Inj) 2 mg NOW ONCE IV ; Start 11/26/17 at 20:45; Stop 11/26/17 at 20:46; Status DC Morphine Sulfate (Morphine Inj) 4 mg Q3H PRN IV BREAKTHROUGH PAIN Last administered on 11/26/17at 21:15; Start 11/26/17 at 20:45; Stop 11/27/17 at 12:59; Status DC Oxycodone/ Acetaminophen (Percocet 7.5-325 Mg) 1 tab Q4H PRN PO PAIN SCALE 5 TO 10 Last administered on 11/27/17at 04:00; Start 11/26/17 at 20:45; Stop 11/27/17 at 12:59; Status DC Morphine Sulfate (Morphine Inj) 1 mg Q3H PRN IV BREAKTHROUGH PAIN Last administered on 11/28/17at 20:15; Start 11/27/17 at 14:45 Oxycodone/ Acetaminophen (Percocet 7.5-325 Mg) 1 tab Q6H PRN PO PAIN SCALE 5 TO 10 Last administered on 11/29/17at 06:18; Start 11/27/17 at 13:00 Haloperidol Lactate (Haldol Inj) 2 mg Q6HR PRN IV PUSH agitation; Start at 18:15 Heparin Sodium (Porcine) (Heparin Inj) 5,000 units Q12H SQ Last administered on 11/30/17at 01:36; Start 11/28/17 at 13:00 Epoetin Logan (Epogen Inj) 10,000 units UNSCH PRN IV PUSH WITH DIALYSIS Last administered on 11/30/17at 10:43; Start 11/30/17 at 09:15 Sodium Chloride 1,000 ml @ As Directed STK-MED ONCE IV ; Start 11/26/17 at 13:51 ; Stop 11/30/17 at 13:55; Status DC Lidocaine HCl (Xylocaine-Mpf 1% Inj) 5 ml STK-MED ONCE OTHER ; Start 11/26/17 at 13:51; Stop 11/30/17 at 13:55; Status DC Rocuronium [place] (Zemuron Inj) 50 mg STK-MED ONCE IV PUSH ; Start 11/26/17 at 13:51; Stop 11/30/17 at 13:55; Status DC Neostigmine Methylsulfate (Prostigmine Inj) 5 mg STK-MED ONCE IV PUSH ; Start at 13:51; Stop 11/30/17 at 13:55; Status DC Glycopyrrolate (Robinul Inj) 1 mg STK-MED ONCE IV PUSH ; Start 11/26/17 at 13:51 ; Stop 11/30/17 at 13:55; Status DC Ephedrine Sulfate (ePHEDrine/NS 25 MG/5 ML SYR) 25 mg STK-MED ONCE IV ; Start at 13:51; Stop 11/30/17 at 13:55; Status DC Ondansetron HCl (Zofran Inj) 4 mg STK-MED ONCE IV PUSH ; Start 11/26/17 at 13:51 ; Stop 11/30/17 at 13:55; Status DC Propofol (Diprivan 200 Mg/20 ml Inj) 200 mg STK-MED ONCE IV ; Start 11/26/17 at 13:51; Stop 11/30/17 at 13:55; Status DC A/P Problem List: (1) Gangrene of foot ICD Code: I96 - Gangrene, not elsewhere classified Status: Acute (2) ESRD (end stage renal disease) on dialysis ICD Code: N18.6 - End stage renal disease; Z99.2 - Dependence on renal dialysis Status: Chronic (3) DM (diabetes mellitus) ICD Code: E11.9 - Type 2 diabetes mellitus without complications Status: Chronic Assessment and Plan This is a 57-year-old female who initially presented for an aortogram with upper and lower extremity angiogram was then later became hypotensive and was admitted to the ICU while on pressors Metabolic encephalopathy -Patient continues to be confused. -Per nurse he was told by ICU nurse that this was not her baseline. -Will get a CT scan of the brain. -Treat underlying condition. -Current haloperidol 2 mg IV every 4 hours. As needed Agitation s/p R iliofemoral bypass and R fem-pop bypass by Dr. Ramirez 11/26/17/Peripheral arterial disease -s/p aortogram and angiogram 11/[address] Ramirez -US of RUE -catheter fragment in right forearm, thrombosed and less chance of dislodgment. Dr. Salazar documented that he discussed with Dr. Ramirez no intervention needed per him Coronary artery disease with prior stents/Essential hypertension at baseline/ Hyperlipidemia/Chronic systolic heart failure ejection fraction 35% 2006/Severe TR/Peripheral neuropathy/History of glaucoma/Chronic anemia of chronic disease -Holding doxazosin 2 mg by mouth daily at bedtime, metoprolol 25 mg by mouth twice a day light of the recent vasopressin usage -Hydroxychloroquine 200 mg daily, Clopidogrel 75 mg daily, Aspirin 162 mg by mouth daily -Gabapentin 100 mg by mouth 3 times a day -Erythropoietin 5000 units with dialysis -Folic acid 1 mg by mouth daily ESRD -Hemodialysis Thursday/Thursday/Thursday per nephrology. /Sevelamer 2400 mg by mouth 3 times a day/cinacalcet 60 mg twice a day currently on hold Dry gangrene 2 through 4 toes right foot, left finger. -No acute intervention for gangrene at this time possibly need amputation during this admission or as outpatient -Blood cultures from 11/20 no growth to date, repeat blood cultures today due to leukocytosis -On cefepime 1 g IV every 24 hours since 11/21 -Wound care following. Management per Dr. Ramirez. Diabetes mellitus, type II -Holding Tradjenta 5 milligrams daily -Low-dose insulin sliding scale AC/hs PROPH: Heparin 5000 subcutaneous to 12 for DVT prophylaxis-resumed. Protonix 40 mg by mouth daily for stress ulcer prophylaxis. Jessy Sin MD Nov 30, 2017 15:15
--- NOTE | 2017-11-30 20:29 | RADRPT ---
EXAM DATE/TIME: 11/30/2017 20:17 [facility] COMPARISON: No previous studies available for comparison. INDICATIONS : Altered mental status. RADIATION DOSE: 34.76 CTDIvol (mGy) MEDICAL HISTORY : Cardiovascular disease. Hypertension. Hepatitis C.Dialysis SURGICAL HISTORY : Hysterectomy. ENCOUNTER: Initial ACUITY: 1 day PAIN SCALE: 0/10 LOCATION: cranial TECHNIQUE: Multiple contiguous axial images were obtained of the head. Using automated exposure control and adj ustment of the mA and/or kV according to patient size, radiation dose was kept as low as reasonably a chievable to obtain optimal diagnostic quality images. DICOM format image data is available electro nically for review and comparison. FINDINGS: CEREBRUM: The ventricles are normal for age. No evidence of midline shift, mass lesion, hemorrhage or acute in farction. No extra-axial fluid collections are seen. POSTERIOR FOSSA: The cerebellum and brainstem are intact. The 4th ventricle is midline. The cerebellopontine angle i s unremarkable. EXTRACRANIAL: The visualized portion of the orbits is intact. SKULL: The calvaria is intact. No evidence of skull fracture. CONCLUSION: Normal examination except for right maxillary sinus disease. Adrien Smith MD on November 30, 2017 at 20:26 Board Certified Radiologist. This report was verified electronically.
[2017-11-30] MEDS: oxyCODONE/ACETAMINOPHEN 7.5 MG/325 MG TAB PO PRN (20:41)
[2017-12-01] VITALS (9 sets, daily range): BP systolic 107–138; BP diastolic 59–74; PULSE 76–96; RESP 16–18; TEMP 96.4–99.1; O2SAT 93–100
[2017-12-01] MEDS: HEPARIN SODIUM - SQ 10,000 UNITS/ML VIAL SQ SCH ×2 (00:18→12:54)
[2017-12-01] MEDS: MORPHINE SULFATE 2 MG/ML INJ IV PRN (01:28)
[2017-12-01] MEDS: SODIUM CHLORIDE 0.9% FLUSH 10 ML FLUSH IV FLUSH PRN (01:29)
--- NOTE | 2017-12-01 07:24 | PD.VS.PN ---
Subjective POD #: 5 Procedure(s): R iliofemoral bypass, fem-BK pop Subjective/Hospital Course less confused this morning; conversant but perseverates some. Head CT negative doesn't endorse L hand pain Objective Vitals/I&O Date Time Temp Pulse Resp B/P (MAP) Pulse Ox O2 Delivery O2 Flow Rate FiO2 12/01/17 04:00 98.5 78 18 107/74 (85) 93 12/01/17 00:08 76 12/01/17 00:00 98.4 96 18 138/64 (88) 98 11/30/17 21:04 100 Nasal Cannula 2.00 11/30/17 20:02 89 11/30/17 20:00 99.9 92 18 141/67 (91) 100 11/30/17 16:00 91 11/30/17 16:00 99.4 104 18 148/67 (94) 100 11/30/17 12:51 98.4 112 18 168/84 (112) 99 11/30/17 12:20 98 11/30/17 08:00 99.0 98 18 148/73 (98) 98 11/30/17 08:00 90 12/01/17 12/01/17 12/01/17 07:00 15:00 23:00 Intake Total 360 ml Output Total 0 ml Balance 360 ml Exam: Resting comfortably not oriented to place R groin soft, leg incisions intact without hematoma R toes dry, no odor L digital tissue loss stable Pulses: Strong DP signal R foot Laboratory Date/Time Source Procedure Growth Status 11/28/17 21:10 Blood Peripheral Aerobic Blood Culture - Preliminary NO GROWTH IN 2 DAYS Resulted 11/28/17 21:10 Blood Peripheral Anaerobic Blood Culture - Preliminary NO GROWTH IN 2 DAYS Resulted Assessment and Plan Plan POD#5 s/p R groin reconstruction and distal bypass; much improved perfusion to foot 1. Normalize with all meds, HD, limit pain meds given mental status 2. OOB and ambulate as tolerated 3. Likely to need toe amputations at some point: either next week or as outpatient 4. Will need L UE DRIL when recovers more from R LE bypass, not necessarily this admission Discharge Planning end of week to rehab Don Ramirez MD Dec 01, 2017 07:24
[2017-12-01 07:39] LABS: HEMATOCRIT 29.4 % (35.0-46.0); HEMOGLOBIN 9.4 GM/DL (11.6-15.3); MEAN CELL VOLUME 91.7 FL (80.0-100.0); MEAN CORPUSCULAR HEMOGLOBIN 29.2 PG (27.0-34.0); MEAN CORPUSCULAR HGB CONC 31.8 % (32.0-36.0); MEAN PLATELET VOLUME 8.7 FL (7.0-11.0); PLATELET COUNT 282 TH/MM3 (150-450); RED BLOOD COUNT 3.21 MIL/MM3 (4.00-5.30); RED CELL DISTRIBUTION WIDTH 17.5 % (11.6-17.2); WHITE BLOOD COUNT 12.9 TH/MM3 (4.0-11.0)
[2017-12-01 08:00] LABS: ALBUMIN 2.3 GM/DL (3.4-5.0); BICARBONATE 26.7 MEQ/L (21.0-32.0); CALCIUM 10.2 MG/DL (8.5-10.1); CREATININE 6.83 MG/DL (0.50-1.00); PHOSPHORUS 6.9 MG/DL (2.5-4.9)
[2017-12-01] MEDS: SEVELAMER CARBONATE 800 MG TAB PO SCH ×3 (08:00→17:36)
[2017-12-01] MEDS: INSULIN ASPART SUPPLEMENTAL SCALE SQ SCH ×4 (08:00→20:51)
[2017-12-01] MEDS: DOCUSATE SODIUM 50 MG/SENNA 8.6 MG TAB PO SCH ×3 (09:00→20:51)
[2017-12-01] MEDS: GABAPENTIN 100 MG CAP PO SCH ×3 (09:00→17:36)
[2017-12-01] MEDS: HYDROXYCHLOROQUINE SULFATE 200 MG TAB PO SCH (09:26)
[2017-12-01] MEDS: FOLIC ACID 1 MG TAB PO SCH (09:26)
[2017-12-01] MEDS: CEFEPIME INJ 1,000 MG in SODIUM CHLORIDE 0.9% INJ 100 ML IV SCH (09:26)
[2017-12-01] MEDS: CLOPIDOGREL 75 MG TAB PO SCH (09:27)
[2017-12-01] MEDS: ASPIRIN 81 MG CHEW TAB PO SCH (09:27)
[2017-12-01] MEDS: PANTOPRAZOLE SOD 40 MG DELAYED RELEASE TAB PO SCH (09:27)
[2017-12-01] MEDS: SODIUM CHLORIDE 0.9% FLUSH 10 ML FLUSH IV FLUSH SCH ×2 (09:28→20:51)
[2017-12-01] MEDS: oxyCODONE/ACETAMINOPHEN 7.5 MG/325 MG TAB PO PRN (10:20)
--- NOTE | 2017-12-01 10:38 | HHI.NPPN ---
Subjective General Problems: Anemia Renal Failure: Chronic, End Stage Renal Disease Interval History Dialyzed yesterday. No acute complaints today. Lab specimen hemolyzed, repeat K has been ordered. ([facility] [place]) Review of Systems General Constitutional: Fatigue ([facility] [place]) Musculoskeletal MS: Pain/Stiffness MS Remarks right foot pain improved ([place] [place]) Objective Data Data Vital Signs Date Time Temp Pulse Resp B/P (MAP) Pulse Ox O2 Delivery O2 Flow Rate FiO2 12/01/17 08:57 100 Nasal Cannula 2.00 12/01/17 08:00 96.4 90 16 138/68 (91) 100 12/01/17 04:00 98.5 78 18 107/74 (85) 93 12/01/17 00:08 76 12/01/17 00:00 98.4 96 18 138/64 (88) 98 11/30/17 21:04 100 Nasal Cannula 2.00 11/30/17 20:02 89 11/30/17 20:00 99.9 92 18 141/67 (91) 100 11/30/17 16:00 91 11/30/17 16:00 99.4 104 18 148/67 (94) 100 11/30/17 12:51 98.4 112 18 168/84 (112) 99 11/30/17 12:20 98 ([place]) -: 12/01/17 0700 12/01/17 0700 Imaging Last [address] 11/30/17 0000 Signed Impressions: Service Date/Time: Thursday, November 30, 2017 20:17 - CONCLUSION: Normal examination except for right maxillary sinus disease. Adrien Smith MD ([facility] [place]) Physical Exam General Appearance: Well Developed, No Acute Distress, Comfortable, Malnourished ([facility] [place]) Eyes Eye Exam: Pupils Equal ([facility] [place]) Throat Throat Exam: Oral Mucosa [place] & Moist ([facility]) Neck Neck Exam: Neck Supple ([facility] [place]) Pulmonary Resp Exam: Clear Bilaterally, Breath Sounds Equal, No Distress ([place]) Cardiology CV Exam: Regular, Normal Sinus Rhythm ([place]) Gastrointestinal/Abdomen GI Exam: Soft, Non-Tender, Bowel Sounds Present ([place]) Musculoskeletal MS Exam: Normal Tone, Atrophy ([facility] [place]) Integumentary Skin Exam: Warm, Dry ([facility] [place]) Extremeties Extremities Exam: No Edema, Pedal Pulses Palpable ([facility] [place]) Neurologic Neuro Exam: Alert, Awake, Oriented, Speech Clear, Moving All Extremities ([place]) Psychiatric Psych Exam: Appropriate Responses ([place]) Assessment/Plan Discussed Condition With: Patient Assessment Summary: Anemia of CKD, [place] Hyperparathyroid, Malnutrition, Hypotension, End Stage Renal Disease Problem List: (1) ESRD (end stage renal disease) on dialysis ICD Codes: N18.6 - End stage renal disease; Z99.2 - Dependence on renal dialysis Status: Chronic Plan: 2L UF yesterday; Continue HD MWF Repeat serum Potassium level has been ordered Avoid Gadolinium. Avoid IVF administration. Monitor fluid and electrolytes. High protein diet. Continue Renvela; evaluate phosphorus intermittently. (2) DM (diabetes mellitus) ICD Codes: E11.9 - Type 2 diabetes mellitus without complications Status: Chronic Plan: Insulin as needed Maintain glucose 140-180 mg/dL. (3) Metabolic bone disease ICD Codes: E88.9 - Metabolic disorder, unspecified; M90.80 - Osteopathy in diseases classified elsewhere, unspecified site Status: Acute Plan: Her diet is high protein, low phosphorus. On Renvela although she is refusing most doses. (4) Gangrene of foot ICD Codes: I96 - Gangrene, not elsewhere classified Status: Acute Plan: Continue Wound care Vascular surgery is following, s/p ileofemoral and Fem-Pop bypass surgery. May need amputation in upcoming week or two She also has ischemia of the access hand. Will need DRIL procedure at later date. (5) Anemia of renal disease ICD Codes: D63.1 - Anemia in chronic kidney disease Status: Chronic Plan: hemoglobin is currently acceptable, monitor. Increase dose of Epogen. ([place] [place]) Plan patient was seen and examined. Repeat potassium is acceptable. Advised the patient to take binders with meals. (Nazario Ahumada MD) [facility] Dec 01, 2017 10:38 Nazario Ahumada MD Dec 01, 2017 12:21
--- NOTE | 2017-12-01 11:35 | HHI.PR ---
Subjective Remarks Follow-up for altered mental status and multiple medical conditions assessment and plan Patient much more alert today. She is AAO 4. Drastic difference from yesterday. Denied any focal neurological deficits. Denied any visual changes or headache. She stated that she heard she was confused. Patient denies any shortness of breathing. She had no complaints with me. Objective Vitals Vital Signs Date Time Temp Pulse Resp B/P (MAP) Pulse Ox O2 Delivery O2 Flow Rate FiO2 12/01/17 08:57 100 Nasal Cannula 2.00 12/01/17 08:00 96.4 90 16 138/68 (91) 100 12/01/17 04:00 98.5 78 18 107/74 (85) 93 12/01/17 00:08 76 12/01/17 00:00 98.4 96 18 138/64 (88) 98 11/30/17 21:04 100 Nasal Cannula 2.00 11/30/17 20:02 89 11/30/17 20:00 99.9 92 18 141/67 (91) 100 11/30/17 16:00 91 11/30/17 16:00 99.4 104 18 148/67 (94) 100 11/30/17 12:51 98.4 112 18 168/84 (112) 99 11/30/17 12:20 98 I/O 11/30/17 11/30/17 11/30/17 12/01/17 12/01/17 12/01/17 06:59 14:59 22:59 06:59 14:59 22:59 Intake Total 480 ml 0 ml 360 ml Output Total 2000 ml 0 ml Balance 480 ml -2000 ml 0 ml 360 ml Intake Oral 480 ml 0 ml 360 ml Output Urine Total 0 ml Hemodialysis 2000 ml # Voids 0 0 # Bowel Movements 0 Result Diagram: 12/01/17 0700 12/01/17 1038 Objective Remarks GENERAL: in NAD NECK: Supple, trachea midline. No JVD or lymphadenopathy. CARDIOVASCULAR: Regular rate and rhythm without murmurs, gallops, or rubs. RESPIRATORY: Breath sounds equal bilaterally. No accessory muscle use. GASTROINTESTINAL: Abdomen soft, non-tender, nondistended. MUSCULOSKELETAL: right toes shows ulcerating/gangrenous lesion. NEURO: AAO O 4. CN 2-12 intact. Sensation and motor grossly intact although she does have difficulty moving her right leg due to pain from the incision site. Medications and IVs Current Medications Vancomycin HCl 1000 mg/Sodium Chloride 250 ml @ 250 mls/hr ONCE STAT IV Last administered on 11/20/17 23:27; Start 11/20/17 at 22:46; Stop 11/20/17 at 23 :45; Status DC Piperacillin Sod/ Tazobactam Sod 50 ml @ 100 mls/hr ONCE ONCE IV Last administered on 11/20/17 22:58; Start 11/20/17 at 23:00; Stop 11/20/17 at 23 :29; Status DC Dextrose (D50w (Vial) Inj) 50 ml UNSCH PRN IV PUSH HYPOGLYCEMIA-SEE COMMENTS; Start 11/20/17 at 23:00 Glucagon (Glucagon Inj) 1 mg UNSCH PRN OTHER HYPOGLYCEMIA-SEE COMMENTS; Start 11/20/17 at 23:00 Insulin Aspart (NovoLOG SUPPLEMENTAL SCALE) 1 ACHS SLIDING SCALE SQ Last administered on 11/25/17 17:00; Start 11/21/17 at 08:00 Cefepime HCl 1000 mg/Sodium Chloride 100 ml @ 200 mls/hr Q24H IV Last administered on 12/01/17 09:26; Start 11/21/17 at 09:00 Sodium Chloride (NS Flush) 2 ml UNSCH PRN IV FLUSH FLUSH AFTER USING IV ACCESS Last administered on 12/01/17 01:29; Start 11/20/17 at 23:00 Sodium Chloride (NS Flush) 2 ml BID IV FLUSH Last administered on 12/01/17 09: 28; Start 11/21/17 at 09:00 Ondansetron HCl (Zofran Inj) 4 mg Q6H PRN IVP NAUSEA OR VOMITING; Start at 23:00 Acetaminophen (Tylenol) 650 mg Q6H PRN PO FEVER/PAIN SCALE 1 TO 2 Last administered on 11/23/17 00:48; Start 11/20/17 at 23:00 Acetaminophen/ Hydrocodone Bitart ([place] 5-325 Mg) 1 tab Q4H PRN PO PAIN SCALE 3 TO 5 Last administered on 11/26/17 09:42; Start 11/20/17 at 23:00; Stop 11/26/17 at 20:38; Status DC Morphine Sulfate (Morphine Inj) 2 mg Q3H PRN IV PUSH BREAKTHROUGH PAIN Last administered on 11/26/17 17:59; Start 11/20/17 at 23:00; Stop 11/26/17 at 20:34 ; Status DC Senna/Docusate Sodium (Elsy-Colace) 1 tab BID PO Last administered on 11/30/17 07:59; Start 11/21/17 at 09:00 Magnesium Hydroxide (Milk Of Magnesia Liq) 30 ml Q12H PRN PO Mild constipation ; Start 11/20/17 at 23:00 Sennosides (Senokot) 17.2 mg Q12H PRN PO Moderate constipation; Start at 23:00 Bisacodyl (Dulcolax Supp) 10 mg DAILY PRN RECTAL SEVERE CONSITIPATION; Start 11/20/17 at 23:00 Lactulose (Lactulose Liq) 30 ml DAILY PRN PO SEVERE CONSITIPATION; Start 11/20 at 23:00 Aspirin (Aspirin Chew) 162 mg DAILY PO Last administered on 12/01/17 09:27; Start 11/21/17 at 09:00 Clopidogrel Bisulfate (Plavix) 75 mg DAILY PO Last administered on 12/01/17 09: 27; Start 11/21/17 at 09:00 Doxazosin Mesylate (Cardura) 2 mg HS PO Last administered on 11/21/17t 21:13; Start 11/21/17 at 21:00; Status Future Hold Folic Acid (Folate) 1 mg DAILY PO Last administered on 12/01/17 09:26; Start 11/21/17 at 09:00 Gabapentin (Neurontin) 100 mg TID PO Last administered on 12/01/17 09:00; Start 11/21/17 at 09:00 Hydroxychloroquine Sulfate (Plaquenil) 200 mg DAILY PO Last administered on 12/01 09:26; Start 11/21/17 at 09:00 Metoprolol Tartrate (Lopressor) 25 mg BID PO Last administered on 11/24/17 11: 54; Start 11/21/17 at 09:00; Status Future Hold Heparin Sodium (Porcine) (Heparin Inj) 5,000 units Q12HR SQ Last administered on 11/26/17 09:49; Start 11/21/17 at 09:00; Stop 11/26/17 at 16:27; Status DC Sodium Chloride 1,000 ml @ 0 mls/hr Q0M PRN OTHER For Prime & Rinse Back; Start 11/21/17 at 09:38 Heparin Sodium (Porcine) (Heparin Inj) 8,000 units UNSCH PRN IV FLUSH WITH DIALYSIS; Start 11/21/17 at 09:45 Sodium Chloride 1,000 ml @ 200 mls/hr Q5H PRN IV WITH DIALYSIS; Start at 09:38 Sodium Chloride 1,000 ml @ 0 mls/hr Q0M PRN OTHER WITH DIALYSIS; Start at 09:38 Mannitol (Mannitol Inj) 12.5 gm UNSCH PRN IV WITH DIALYSIS; Start 11/21/17 at 09:45 Albumin Human 100 ml @ 60 mls/hr UNSCH PRN IV WITH DIALYSIS Last administered on 11/25/17at 09:26; Start 11/21/17 at 09:45 Sodium Chloride (NS Flush) 5 ml UNSCH PRN IV FLUSH WITH DIALYSIS; Start at 09:45 Heparin Sodium (Porcine) (Heparin Inj) UNSCH PRN .XX WITH DIALYSIS; Start at 09:45 Gentamicin Sulfate (Gentamicin (Dialysis) Inj) 20 mg UNSCH PRN OTHER WITH DIALYSIS; Start 11/21/17 at 09:45 Ondansetron HCl (Zofran Inj) 4 mg UNSCH PRN IV PUSH WITH DIALYSIS; Start 11/21 at 09:45 Acetaminophen (Tylenol) 650 mg UNSCH PRN PO for headach, temp > 101F; Start at 09:45 Diphenhydramine HCl (Benadryl) 25 mg UNSCH PRN PO for hives/itching/anaphylaxis ; Start 11/21/17 at 09:45 Nitroglycerin (Nitrostat Sl) 0.4 mg UNSCH PRN SL CHEST PAIN; Start 11/21/17 at 09:45 Clonidine (Catapres) 0.1 mg UNSCH PRN PO for BP > 180/100 X 2 readings; Start 11/21/17 at 09:45 Epoetin Logan (Epogen Inj) 5,000 units UNSCH PRN IV PUSH WITH DIALYSIS Last administered on 11/27/17at 12:22; Start 11/21/17 at 09:45; Stop 11/30/17 at 09:09 ; Status DC Gelatin (Gelfoam 12 Mm/7 Mm Top) 1 foam UNSCH PRN TOP SEE LABEL COMMENTS Last administered on 11/27/17at 12:22; Start 11/21/17 at 09:45 Acetaminophen/ Hydrocodone Bitart ([place] 10-325 Mg) 1 tab Q4H PRN PO PAIN SCALE 6 TO 10 Last administered on 11/26/17at 04:23; Start 11/21/17 at 12:00; Stop 11/26/17 at 20:38; Status DC Sevelamer Carbonate (Renvela) 1,600 mg TIDAC PO Last administered on 11/23/17at 18:14; Start 11/22/17 at 12:00; Stop 11/24/17 at 09:08; Status DC Sodium Chloride 250 ml @ 50 mls/hr Q5H IV Last administered on 11/23/17at 08:15 ; Start 11/23/17 at 08:15; Stop 11/23/17 at 13:14; Status DC Iohexol (Omnipaque 350 Inj) 99 ml STK-MED ONCE IVCONTRAST Last administered on 11/23/17at 16:24; Start 11/23/17 at 16:24; Stop 11/23/17 at 16:25; Status DC Sodium Chloride 500 ml @ 30 mls/hr [id number] PRN IV SEE LABEL COMMENTS; Start 11/23/17 at 22:15; Stop 11/26/17 at 22:14; Status DC Povidone Iodine (Betadine 5% Antisepsis Kit) 1 applic DERRICK OPERATOR PRN EACH NARE SEE LABEL COMMENTS; Start 11/23/17 at 22:15; Stop 11/26/17 at 22:14; Status DC Chlorhexidine Gluconate (Chlorhexidine 2% Cloth) 3 pack DERRICK OPERATOR PRN TOPICAL SEE LABEL COMMENTS; Start 11/23/17 at 22:15; Stop 11/26/17 at 22:14; Status DC Sodium Chloride 500 ml @ 50 mls/hr Q10H IV ; Start 11/24/17 at 04:45; Stop at 04:51; Status DC Sodium Chloride 250 ml @ 50 mls/hr Q5H ONCE IV ; Start 11/25/17 at 05:40; Stop 11/25/17 at 10:39; Status Cancel Sodium Chloride 250 ml @ 50 mls/hr Q5H ONCE IV Last administered on 11/24/17at 06:03; Start 11/24/17 at 06:00; Stop 11/24/17 at 10:59; Status DC Sevelamer Carbonate (Renvela) 2,400 mg TIDAC PO Last administered on 11/29/17at 13:03; Start 11/24/17 at 12:00 Protamine Sulfate (Protamine Sulfate Inj) 50 mg STK-MED ONCE .ROUTE ; Start 11/24 at 14:33; Stop 11/24/17 at 14:34; Status DC Heparin Sodium (Porcine) (Heparin Inj) 10,000 units STK-MED ONCE .ROUTE ; Start 11/24/17 at 14:33; Stop 11/24/17 at 14:34; Status DC Vancomycin HCl (Vancomycin Inj) 1,000 mg STK-MED ONCE .ROUTE Last administered on 11/24/17at 16:10; Start 11/24/17 at 14:33; Stop 11/24/17 at 14:34; Status DC Heparin Sodium/ Sodium Chloride 500 ml @ As Directed STK-MED ONCE .ROUTE Last administered on 11/24/17at 14:33; Start 11/24/17 at 14:33; Stop 11/24/17 at 14:34; Status DC Hydromorphone HCl (Dilaudid Pf Inj) 0.5 mg ONCE ONCE IV ; Start 11/24/17 at 15: 15; Stop 11/24/17 at 15:16; Status DC Ketamine HCl (Ketalar Inj) 500 mg STK-MED ONCE .ROUTE ; Start 11/24/17 at 15:21; Stop 11/24/17 at 15:22; Status DC Iohexol 50 ml @ 0 mls/hr ONCE ONCE IV Last administered on 11/24/17at 16:17; Start 11/24/17 at 16:17; Stop 11/24/17 at 16:21; Status DC Hydromorphone HCl (*DILAUDID PF INJ PERIprocedural ONLY) 1 mg STK-MED ONCE .ROUTE Last administered on 11/24/17at 17:31; Start 11/24/17 at 17:31; Stop at 17:32; Status DC Fentanyl Citrate (fentaNYL INJ) 100 mcg STK-MED ONCE .ROUTE ; Start 11/24/17 at 17:34; Stop 11/24/17 at 17:35; Status DC Morphine Sulfate (Morphine Inj) 4 mg STK-MED ONCE .ROUTE ; Start 11/24/17 at 17: 34; Stop 11/24/17 at 17:35; Status DC Miscellaneous Information ALL NURSING DEPARTME... UNSCH PRN .XX SEE LABEL COMMENTS; Start 11/24/17 at 17:45; Stop 11/25/17 at 17:44; Status DC Phenylephrine HCl (Neosynephrine Inj) 40 mg STK-MED ONCE .ROUTE ; Start 11/24/17 at 17:42; Stop 11/24/17 at 17:43; Status DC Hydromorphone HCl (Dilaudid Pf Inj) 0.5 mg Q10M PRN IV SEE LABEL COMMENTS; Start 11/24/17 at 17:45; Stop 11/24/17 at 19:30; Status DC Phenylephrine HCl 40 mg/Dextrose 500 ml @ 30 mls/hr TITRATE PRN IV Blood Pressure Management Last administered on 11/25/17at 04:27; Start 11/24/17 at 18:15 Terbutaline Sulfate (Brethine Inj) 1 mg UNSCH PRN SQ FOR EXTRAVASATION PROTOCOL ; Start 11/24/17 at 18:15 Albumin Human 50 ml @ 60 mls/hr ONCE ONCE IV ; Start 11/25/17 at 06:30; Stop 11/25/17 at 07:38; Status DC Pantoprazole Sodium (Protonix) 40 mg DAILY PO Last administered on 12/01/17at 09: 27; Start 11/25/17 at 09:00 Dextrose 500 ml @ 20 mls/hr Q24H IV ; Start 11/26/17 at 11:45 Fentanyl Citrate (fentaNYL INJ) 200 mcg STK-MED ONCE .ROUTE ; Start 11/26/17 at 12:28; Stop 11/26/17 at 12:29; Status DC Fentanyl Citrate (fentaNYL INJ) 100 mcg STK-MED ONCE .ROUTE ; Start 11/26/17 at 12:28; Stop 11/26/17 at 12:29; Status DC Morphine Sulfate (Morphine Inj) 4 mg STK-MED ONCE .ROUTE ; Start 11/26/17 at 12: 28; Stop 11/26/17 at 12:29; Status DC Protamine Sulfate (Protamine Sulfate Inj) 50 mg STK-MED ONCE .ROUTE ; Start 11/26 at 12:29; Stop 11/26/17 at 12:30; Status DC Heparin Sodium (Porcine) (Heparin Inj) 10,000 units STK-MED ONCE .ROUTE ; Start 11/26/17 at 12:29; Stop 11/26/17 at 12:30; Status DC Bupivacaine HCl (Marcaine Pf 0.5% Inj) 30 ml STK-MED ONCE .ROUTE Last administered on 11/26/17at 12:29; Start 11/26/17 at 12:29; Stop 11/26/17 at 12:30; Status DC Vancomycin HCl (Vancomycin Inj) 1,000 mg STK-MED ONCE .ROUTE Last administered on 11/26/17at 13:25; Start 11/26/17 at 12:29; Stop 11/26/17 at 12:30; Status DC Heparin Sodium/ Sodium Chloride 500 ml @ As Directed STK-MED ONCE .ROUTE Last administered on 11/26/17at 12:29; Start 11/26/17 at 12:29; Stop 11/26/17 at 12:30; Status DC Thrombin (Thrombin Top [place]) 20,000 units STK-MED ONCE .ROUTE Last administered on 11/26/17at 13:45; Start 11/26/17 at 13:45; Stop 11/26/17 at 13:46; Status DC Heparin Sodium (Porcine) (Heparin Inj) 5,000 units Q8H SQ ; Start 11/26/17 at 15: 30; Stop 11/26/17 at 19:52; Status DC Miscellaneous Information ALL NURSING DEPARTME... UNSCH PRN .XX SEE LABEL COMMENTS; Start 11/26/17 at 17:15; Stop 11/27/17 at 17:14; Status DC Heparin Sodium (Porcine) (Heparin Inj) 5,000 units Q8H SQ Last administered on 11/28/17at 00:49; Start 11/27/17 at 15:30; Stop 11/28/17 at 10:57; Status DC Morphine Sulfate (Morphine Inj) 2 mg NOW ONCE IV ; Start 11/26/17 at 20:45; Stop 11/26/17 at 20:46; Status DC Morphine Sulfate (Morphine Inj) 4 mg Q3H PRN IV BREAKTHROUGH PAIN Last administered on 11/26/17at 21:15; Start 11/26/17 at 20:45; Stop 11/27/17 at 12:59; Status DC Oxycodone/ Acetaminophen (Percocet 7.5-325 Mg) 1 tab Q4H PRN PO PAIN SCALE 5 TO 10 Last administered on 11/27/17at 04:00; Start 11/26/17 at 20:45; Stop 11/27/17 at 12:59; Status DC Morphine Sulfate (Morphine Inj) 1 mg Q3H PRN IV BREAKTHROUGH PAIN Last administered on 12/01/17at 01:28; Start 11/27/17 at 14:45 Oxycodone/ Acetaminophen (Percocet 7.5-325 Mg) 1 tab Q6H PRN PO PAIN SCALE 5 TO 10 Last administered on 12/01/17at 10:20; Start 11/27/17 at 13:00 Haloperidol Lactate (Haldol Inj) 2 mg Q6HR PRN IV PUSH agitation Last administered on 11/30/17at 15:43; Start 11/27/17 at 18:15 Heparin Sodium (Porcine) (Heparin Inj) 5,000 units Q12H SQ Last administered on 12/01/17at 00:18; Start 11/28/17 at 13:00 Epoetin Logan (Epogen Inj) 10,000 units UNSCH PRN IV PUSH WITH DIALYSIS Last administered on 11/30/17at 10:43; Start 11/30/17 at 09:15 Sodium Chloride 1,000 ml @ As Directed STK-MED ONCE IV ; Start 11/26/17 at 13:51 ; Stop 11/30/17 at 13:55; Status DC Lidocaine HCl (Xylocaine-Mpf 1% Inj) 5 ml STK-MED ONCE OTHER ; Start 11/26/17 at 13:51; Stop 11/30/17 at 13:55; Status DC Rocuronium [place] (Zemuron Inj) 50 mg STK-MED ONCE IV PUSH ; Start 11/26/17 at 13:51; Stop 11/30/17 at 13:55; Status DC Neostigmine Methylsulfate (Prostigmine Inj) 5 mg STK-MED ONCE IV PUSH ; Start at 13:51; Stop 11/30/17 at 13:55; Status DC Glycopyrrolate (Robinul Inj) 1 mg STK-MED ONCE IV PUSH ; Start 11/26/17 at 13:51 ; Stop 11/30/17 at 13:55; Status DC Ephedrine Sulfate (ePHEDrine/NS 25 MG/5 ML SYR) 25 mg STK-MED ONCE IV ; Start at 13:51; Stop 11/30/17 at 13:55; Status DC Ondansetron HCl (Zofran Inj) 4 mg STK-MED ONCE IV PUSH ; Start 11/26/17 at 13:51 ; Stop 11/30/17 at 13:55; Status DC Propofol (Diprivan 200 Mg/20 ml Inj) 200 mg STK-MED ONCE IV ; Start 11/26/17 at 13:51; Stop 11/30/17 at 13:55; Status DC A/P Problem List: (1) Gangrene of foot ICD Code: I96 - Gangrene, not elsewhere classified Status: Acute (2) ESRD (end stage renal disease) on dialysis ICD Code: N18.6 - End stage renal disease; Z99.2 - Dependence on renal dialysis Status: Chronic (3) DM (diabetes mellitus) ICD Code: E11.9 - Type 2 diabetes mellitus without complications Status: Chronic Assessment and Plan This is a 57-year-old female who initially presented for an aortogram with upper and lower extremity angiogram was then later became hypotensive and was admitted to the ICU while on pressors Metabolic encephalopathy -Seemed to resolve. -CT scan the brain negative. -Current haloperidol 2 mg IV every 4 hours. As needed Agitation s/p R iliofemoral bypass and R fem-pop bypass by Dr. Ramirez 11/26/17/Peripheral arterial disease -s/p aortogram and angiogram 11/[address] Ramirez -US of RUE -catheter fragment in right forearm, thrombosed and less chance of dislodgment. Dr. Salazar documented that he discussed with Dr. Ramirez no intervention needed per him Coronary artery disease with prior stents/Essential hypertension at baseline/ Hyperlipidemia/Chronic systolic heart failure ejection fraction 35% 2006/Severe TR/Peripheral neuropathy/History of glaucoma/Chronic anemia of chronic disease -Holding doxazosin 2 mg by mouth daily at bedtime, metoprolol 25 mg by mouth twice a day light of the recent vasopressin usage -Hydroxychloroquine 200 mg daily, Clopidogrel 75 mg daily, Aspirin 162 mg by mouth daily -Gabapentin 100 mg by mouth 3 times a day -Erythropoietin 5000 units with dialysis -Folic acid 1 mg by mouth daily ESRD -Hemodialysis Thursday/Thursday/Thursday per nephrology. /Sevelamer 2400 mg by mouth 3 times a day/cinacalcet 60 mg twice a day currently on hold Dry gangrene 2 through 4 toes right foot, left finger. -No acute intervention for gangrene at this time possibly need amputation during this admission or as outpatient -Blood cultures from 11/20 no growth to date, repeat blood cultures today due to leukocytosis -On cefepime 1 g IV every 24 hours since 11/21 -Wound care following. Management per Dr. Ramirez. -Since blood cultures are negative we will discontinue cefepime and monitor off antibiotics patient already had 10 days of treatment with IV antibiotics. Diabetes mellitus, type II -Holding Tradjenta 5 milligrams daily -Low-dose insulin sliding scale AC/hs PROPH: Heparin 5000 subcutaneous to 12 for DVT prophylaxis-resumed. Protonix 40 mg by mouth daily for stress ulcer prophylaxis. Discharge Planning Possible discharge later this week. Jessy Sin MD Dec 01, 2017 11:35
[2017-12-01] MEDS: DEXTROSE 10% INJ 500 ML IV SCH (11:45)
[2017-12-02] VITALS: BP 119/63; PULSE 82; RESP 16; TEMP 99.2; O2SAT 100
[2017-12-02] MEDS: HEPARIN SODIUM - SQ 10,000 UNITS/ML VIAL SQ SCH ×2 (01:00→13:00)
[2017-12-02 04:00] VITALS: BP 125/62; PULSE 80; RESP 18; TEMP 98.4; O2SAT 100
[2017-12-02] MEDS: oxyCODONE/ACETAMINOPHEN 7.5 MG/325 MG TAB PO PRN (06:46)
[2017-12-02 08:00] VITALS: BP 113/67; PULSE 81; RESP 17; TEMP 98.8; O2SAT 98
[2017-12-02] MEDS: SEVELAMER CARBONATE 800 MG TAB PO SCH ×2 (08:00→12:00)
[2017-12-02] MEDS: INSULIN ASPART SUPPLEMENTAL SCALE SQ SCH ×2 (08:00→11:43)
--- NOTE | 2017-12-02 08:05 | PD.VS.PN ---
Subjective POD #: 6 Procedure(s): R iliofemoral bypass, fem-BK pop Subjective/Hospital Course even less confused this morning; heidy po doesn't endorse L hand pain Objective Vitals/I&O Date Time Temp Pulse Resp B/P (MAP) Pulse Ox O2 Delivery O2 Flow Rate FiO2 12/02/17 04:00 98.4 80 18 125/62 (83) 100 12/02/17 00:00 99.2 82 16 119/63 (81) 100 12/01/17 20:07 84 12/01/17 20:00 98.3 79 18 136/62 (86) 99 12/01/17 16:00 98.9 89 16 111/59 (76) 100 12/01/17 12:00 99.1 87 16 126/61 (82) 100 12/01/17 08:57 100 Nasal Cannula 2.00 12/02/17 12/02/17 12/02/17 07:00 15:00 23:00 Intake Total 240 ml Output Total 0 ml Balance 240 ml Exam: R groin and leg incisions ok Foot warm stable R dry gangrene stable L hand digital gangrene Laboratory Laboratory Tests Test 12/01/17 10:38 Potassium Level 4.7 Date/Time Source Procedure Growth Status 11/28/17 21:10 Blood Peripheral Aerobic Blood Culture - Preliminary NO GROWTH IN 3 DAYS Resulted 11/28/17 21:10 Blood Peripheral Anaerobic Blood Culture - Preliminary NO GROWTH IN 3 DAYS Resulted Assessment and Plan Plan POD#6 s/p R groin reconstruction and distal bypass; much improved perfusion to foot 1. Normalize with all meds, HD, limit pain meds given mental status 2. OOB and ambulate as tolerated 3. will schedule R toe amps as outpatient after allowing to demarcate 4. Will schedule L UE DRIL as outpatient 5. Ok to d/c to rehab/SNF Discharge Planning end of week to rehab Don Ramirez MD Dec 02, 2017 08:05
[2017-12-02] MEDS: GELATIN 12 MM/7 MM FOAM TOP PRN (08:48)
[2017-12-02] MEDS: ALBUMIN 25% INJ 100 ML IV PRN (08:48)
[2017-12-02] MEDS: EPOETIN ALFA 10,000 UNITS/ML VIAL IV PUSH PRN (08:49)
[2017-12-02] MEDS: DOCUSATE SODIUM 50 MG/SENNA 8.6 MG TAB PO SCH (09:00)
[2017-12-02] MEDS: ASPIRIN 81 MG CHEW TAB PO SCH (09:00)
[2017-12-02] MEDS: HYDROXYCHLOROQUINE SULFATE 200 MG TAB PO SCH (09:00)
[2017-12-02] MEDS: GABAPENTIN 100 MG CAP PO SCH ×2 (09:00→13:00)
[2017-12-02] MEDS: PANTOPRAZOLE SOD 40 MG DELAYED RELEASE TAB PO SCH (09:00)
[2017-12-02] MEDS: SODIUM CHLORIDE 0.9% FLUSH 10 ML FLUSH IV FLUSH SCH (09:00)
[2017-12-02] MEDS: FOLIC ACID 1 MG TAB PO SCH (09:00)
[2017-12-02] MEDS: CLOPIDOGREL 75 MG TAB PO SCH (09:00)
--- NOTE | 2017-12-02 09:05 | HHI.NPPN ---
Subjective General Problems: Anemia Renal Failure: Chronic, End Stage Renal Disease Interval History She is resting. Seen during dialysis. ([place]) Review of Systems General Constitutional: Fatigue ([place]) Musculoskeletal MS: Pain/Stiffness MS Remarks right foot pain improved ([place]) Objective Data Data Vital Signs Date Time Temp Pulse Resp B/P (MAP) Pulse Ox O2 Delivery O2 Flow Rate FiO2 12/02/17 04:00 98.4 80 18 125/62 (83) 100 12/02/17 00:00 99.2 82 16 119/63 (81) 100 12/01/17 20:07 84 12/01/17 20:00 98.3 79 18 136/62 (86) 99 12/01/17 16:00 98.9 89 16 111/59 (76) 100 12/01/17 12:00 99.1 87 16 126/61 (82) 100 12/01/17 08:57 100 Nasal Cannula 2.00 ([place]) -: 12/01/17 0700 12/01/17 1038 Imaging Last [address] 11/30/17 0000 Signed Impressions: Service Date/Time: Thursday, November 30, 2017 20:17 - CONCLUSION: Normal examination except for right maxillary sinus disease. Adrien Smith MD ([place]) Physical Exam General Appearance: Well Developed, No Acute Distress, Comfortable, Sleeping, Malnourished ([place]) Eyes Eye Exam: Pupils Equal ([place]) Throat Throat Exam: Oral Mucosa [place] & Moist ([place]) Neck Neck Exam: Neck Supple ([place]) Pulmonary Resp Exam: Clear Bilaterally, Breath Sounds Equal, No Distress ([place]) Cardiology CV Exam: Regular, Normal Sinus Rhythm ([place]) Gastrointestinal/Abdomen GI Exam: Soft, Non-Tender, Bowel Sounds Present ([place]) Musculoskeletal MS Exam: Normal Tone, Atrophy ([place]) Integumentary Skin Exam: Warm, Dry ([place]) Extremeties Extremities Exam: No Edema, Pedal Pulses Palpable ([place]) Neurologic Neuro Exam: Alert, Awake, Oriented, Speech Clear, Moving All Extremities ([place]) Psychiatric Psych Exam: Appropriate Responses ([place]) Assessment/Plan Discussed Condition With: Patient Assessment Summary: Anemia of CKD, [place] Hyperparathyroid, Malnutrition, Hypotension, End Stage Renal Disease Problem List: (1) ESRD (end stage renal disease) on dialysis ICD Codes: N18.6 - End stage renal disease; Z99.2 - Dependence on renal dialysis Status: Chronic Plan: Seen during dialysis on a 2K, 350 BFR, 1.5L UF Continue HD MWF Repeat serum Potassium normal Avoid Gadolinium. Avoid IVF administration. Monitor fluid and electrolytes. High protein diet. Continue Renvela; advised binder compliance. evaluate phosphorus intermittently. (2) DM (diabetes mellitus) ICD Codes: E11.9 - Type 2 diabetes mellitus without complications Status: Chronic Plan: Insulin as needed Maintain glucose 140-180 mg/dL. (3) Metabolic bone disease ICD Codes: E88.9 - Metabolic disorder, unspecified; M90.80 - Osteopathy in diseases classified elsewhere, unspecified site Status: Acute Plan: Her diet is high protein, low phosphorus. On Renvela with meals (4) Gangrene of foot ICD Codes: I96 - Gangrene, not elsewhere classified Status: Acute Plan: Continue Wound care Vascular surgery is following, s/p ileofemoral and Fem-Pop bypass surgery. May need amputation in upcoming week or two She also has ischemia of the access hand. Will need DRIL procedure at later date. (5) Anemia of renal disease ICD Codes: D63.1 - Anemia in chronic kidney disease Status: Chronic Plan: hemoglobin is currently acceptable, monitor. On Epogen. ([place]) Plan patient was seen and examined. Agree with above assessment and plan. Seen during dialysis. (Nazario Ahumada MD) [facility] [place] Dec 02, 2017 09:05 Nazario Ahumada MD Dec 02, 2017 10:12
[2017-12-02 09:17] LABS: HEMATOCRIT 26.4 % (35.0-46.0); HEMOGLOBIN 8.5 GM/DL (11.6-15.3); MEAN CELL VOLUME 91.9 FL (80.0-100.0); MEAN CORPUSCULAR HEMOGLOBIN 29.5 PG (27.0-34.0); MEAN CORPUSCULAR HGB CONC 32.1 % (32.0-36.0); MEAN PLATELET VOLUME 8.7 FL (7.0-11.0); PLATELET COUNT 265 TH/MM3 (150-450); RED BLOOD COUNT 2.87 MIL/MM3 (4.00-5.30); RED CELL DISTRIBUTION WIDTH 17.4 % (11.6-17.2); WHITE BLOOD COUNT 7.5 TH/MM3 (4.0-11.0)
[2017-12-02 09:50] LABS: BICARBONATE 29.1 MEQ/L (21.0-32.0); CALCIUM 9.8 MG/DL (8.5-10.1); CREATININE 8.93 MG/DL (0.50-1.00)
[2017-12-02] MEDS: DEXTROSE 10% INJ 500 ML IV SCH (11:45)
[2017-12-02 12:00] VITALS: BP 120/72; PULSE 87; RESP 16; TEMP 98.5; O2SAT 100
[2017-12-02] MEDS ORDERED: PERC5TAB12 PO (12:30)
[2017-12-02] MEDS ORDERED: LACTTAB8 PO (12:31)
[2017-12-02 13:08] VITALS: O2SAT 97
--- NOTE | 2017-12-02 14:44 | HHI.DS ---
Discharge Summary Admission Date Nov 20, 2017 at 22:51 Discharge Date: Dec 02, 2017 Admitting Diagnosis gangrene, right foot wound, diabetes (1) Gangrene of foot ICD Code: I96 - Gangrene, not elsewhere classified Status: Acute (2) ESRD (end stage renal disease) on dialysis ICD Code: N18.6 - End stage renal disease; Z99.2 - Dependence on renal dialysis Status: Chronic (3) DM (diabetes mellitus) ICD Code: E11.9 - Type 2 diabetes mellitus without complications Status: Chronic Procedures Wound vac placement Brief History - From Admission This is a 57-year-old female with a PMH of HTN, Hyperlipidemia, ESRD on HD M/W/F , CHF (Echo 03/22/07 w/ EF 30-35%), Chronic Foot Ulcers and DM who presented to the ER w/ complaints of right foot pain. States symptoms have been ongoing x1 wk. Pain is sharp, constant and severe, 10/10. Exacerbated by touch, no alleviating factors. Reports associated foul-smelling drainage from right foot. Denies fever, chills, but noted to have Temp 100.2 in Triage. BP 164/77 , HR 89, O2 sat 96% on RA. CBC unremarkable except for elevated neutrophil count. Chemistry baseline, creatinine 6.47, previously 6.78 06/17/17. CXR with no acute findings. Foot X-ray with osteophytic change, no evidence of osteomyelitis. On exam, pt noted to have necrotic foot wound. CBC/BMP: 12/02/17 0708 12/02/17 0708 Significant Findings Laboratory Tests Test 12/01/17 07:00 12/01/17 10:38 12/02/17 07:08 White Blood Count 12.9 TH/MM3 (4.0-11.0) Red Blood Count 3.21 MIL/MM3 (4.00-5.30) 2.87 MIL/MM3 (4.00-5.30) Hemoglobin 9.4 GM/DL (11.6-15.3) 8.5 GM/DL (11.6-15.3) Hematocrit 29.4 % (35.0-46.0) 26.4 % (35.0-46.0) Mean Corpuscular Hemoglobin Concent 31.8 % (32.0-36.0) Red Cell Distribution Width 17.5 % (11.6-17.2) 17.4 % (11.6-17.2) Blood Urea Nitrogen 34 MG/DL (7-18) 50 MG/DL (7-18) Creatinine 6.83 MG/DL (0.50-1.00) 8.93 MG/DL (0.50-1.00) Albumin 2.3 GM/DL (3.4-5.0) Calcium Level 10.2 MG/DL (8.5-10.1) Phosphorus Level 6.9 MG/DL (2.5-4.9) Potassium Level 6.1 MEQ/L (3.5-5.1) Chloride Level 96 MEQ/L (98-107) 97 MEQ/L (98-107) Estimat Glomerular Filtration Rate 8 ML/MIN (>89) 6 ML/MIN (>89) PE at Discharge GENERAL: in NAD NECK: Supple, trachea midline. No JVD or lymphadenopathy. CARDIOVASCULAR: Regular rate and rhythm without murmurs, gallops, or rubs. RESPIRATORY: Breath sounds equal bilaterally. No accessory muscle use. GASTROINTESTINAL: Abdomen soft, non-tender, nondistended. MUSCULOSKELETAL: right toes shows ulcerating/gangrenous lesion. NEURO: AAO O 4. CN 2-12 intact. Sensation and motor grossly intact although she does have difficulty moving her right leg due to pain from the incision site. Hospital Course Mrs. Tavares is a 57-year-old female. She is admitted secondary to gangrene of the right foot. Treatments were provided here including antibiotics and the placement of wound VAC. Immediate amputation is not elected as an option this stay, but she will be following up with a surgeon as an outpatient. At this point she has decreased mobility and will need a retirement facility at discharge. She has been discontinued from antibiotics at day 10 as there is no signs of active infection. Medically at this point she is stable for transition to retirement facility in outpatient follow-up. Pt Condition on Discharge: Stable Discharge Disposition: Discharge to SNF Discharge Time: <= 30 minutes Discharge Instructions DIET: Follow Instructions for: As Tolerated, No Restrictions Activities you can perform: Regular-No Restrictions Follow up Referrals: PCP Follow-up - 2 Weeks Vascular Surgery - 2 Weeks with Don Ramirez MD New Medications: Lactobacillus Acidophilus (Lactobacillus Acidophilus) 1 Billion Cell Tab 1 TAB PO TIDAC for Nutritional Supplement, #30 TAB 0 Refills Oxycodone-Acetaminophen (Percocet) 5-325 mg Tab 1 TAB PO Q6H PRN for PAIN, #60 TAB 0 Refills Continued Medications: Aspirin (Aspirin Low Strength) 81 Mg Chew 162 MG PO DAILY, #30 EA Cinacalcet (Sensipar) 30 Mg Tab 60 MG PO BID, #60 TAB 0 Refills Clopidogrel (Plavix) 75 Mg Tab 75 MG PO DAILY, #30 TAB 11 Refills Doxazosin (Doxazosin) 2 Mg Tab 2 MG PO HS, #30 TAB 0 Refills Folic Acid (Folic Acid) 1 Mg Tablet 1 MG PO DAILY Gabapentin (Gabapentin) 100 Mg Cap 100 MG PO TID, #90 CAP 0 Refills Hydroxychloroquine (Hydroxychloroquine) 200 Mg Tab 200 MG PO DAILY, #30 TAB 0 Refills Takw with food Linagliptin (Tradjenta) 5 Mg Tab 5 MG PO DAILY for Blood Sugar Management, #30 TAB 0 Refills Metoprolol Tartrate (Metoprolol Tartrate) 25 Mg Tab 25 MG PO BID, #60 TAB 0 Refills Mv-Mn/Folic AC/Alip Acid/Coq10 (Diabetic Vitamin Capsule) 800 Mcg-150 Mg-50 Mg Capsule 1 TAB PO DAILY Nitroglycerin SL (Nitrostat SL) 0.4 Mg Subl 0.4 MG SL UNSCH PRN for CHEST PAIN, #30 TAB Danish Pacheco MD Dec 02, 2017 14:44
== END 2017-12-02 16:19 | DRG 628 ==
LOC: NEPC 19:30 → NEDA 22:51 → N07B 23:38 → N03B 11-24 18:14 → N07A 11-29 14:28
PROVIDERS: ADMIT Hospitalist; ATTEND Hospitalist
PROC: 5A1D70Z Performance of Urinary Filtration, Intermittent, Less than 6 Hours Per Day (ICD-10-PCS; 2017-11-22)
PROC: B41D1ZZ Fluoroscopy of Aorta and Bilateral Lower Extremity Arteries using Low Osmolar Contrast (ICD-10-PCS; 2017-11-23)
PROC: B31J1ZZ Fluoroscopy of Left Upper Extremity Arteries using Low Osmolar Contrast (ICD-10-PCS; 2017-11-24)
PROC: B31P1ZZ Fluoroscopy of Thoraco-Abdominal Aorta using Low Osmolar Contrast (ICD-10-PCS; 2017-11-24)
PROC: 041K0KL Bypass Right Femoral Artery to Popliteal Artery with Nonautologous Tissue Substitute, Open Approach (ICD-10-PCS; principal; 2017-11-26 12:55)
PROC: 041H0JH Bypass Right External Iliac Artery to Right Femoral Artery with Synthetic Substitute, Open Approach (ICD-10-PCS; 2017-11-26 12:55)
DX: E11.621 Type 2 diabetes mellitus with foot ulcer (principal); G93.41 Metabolic encephalopathy; L97.519 Non-pressure chronic ulcer of other part of right foot with unspecified severity; I13.2 Hypertensive heart and chronic kidney disease with heart failure and with stage 5 chronic kidney disease, or end stage renal disease; E11.52 Type 2 diabetes mellitus with diabetic peripheral angiopathy with gangrene; N18.6 End stage renal disease; I95.9 Hypotension, unspecified; E88.89 Other specified metabolic disorders; E46 Unspecified protein-calorie malnutrition; I50.22 Chronic systolic (congestive) heart failure; T82.898A Other specified complication of vascular prosthetic devices, implants and grafts, initial encounter; E11.22 Type 2 diabetes mellitus with diabetic chronic kidney disease; Z99.2 Dependence on renal dialysis; M85.80 Other specified disorders of bone density and structure, unspecified site; E11.42 Type 2 diabetes mellitus with diabetic polyneuropathy; M19.90 Unspecified osteoarthritis, unspecified site; B19.20 Unspecified viral hepatitis C without hepatic coma; E78.5 Hyperlipidemia, unspecified; I25.10 Atherosclerotic heart disease of native coronary artery without angina pectoris; D63.1 Anemia in chronic kidney disease; Z82.49 Family history of ischemic heart disease and other diseases of the circulatory system; Z84.1 Family history of disorders of kidney and ureter; L08.9 Local infection of the skin and subcutaneous tissue, unspecified; I99.8 Other disorder of circulatory system; N25.81 Secondary hyperparathyroidism of renal origin; Z95.5 Presence of coronary angioplasty implant and graft; Z90.710 Acquired absence of both cervix and uterus; H40.9 Unspecified glaucoma; Y82.8 Other medical devices associated with adverse incidents
CPT/HCPCS: 36600; 70450; 71010; 71045; 73630; 75635; 76882; 76937; 80048; 80053; 80069; 82805; 82948; 83036; 83735; 84100; 84132; 84439; 84443; 85007; 85025; 85027; 86850; 86900; 86901; 86920; 87040; 90935; 93005; 93922; 93970; 93998; 94150; 96374; 96375; C1768; C1769; J0692; J1170; J1630; J1644; J1815; J2270; J2370; J2405; J2543; J2710; J2720; J3010; J3370; J7040; J7050; J7060; P9047; Q4081; Q9967

== ENCOUNTER 2018-02-20 07:26 | Emergency (ER) | payer MEDICARE, OTHER ==
[~2018-02-20] VITALS: Ht 160 cm; Wt 50.5 kg
[~2018-02-20 07:26] MED LIST changes: -BACT800T5 PO; +LACTTAB8 PO; -MULTTAB27 PO; +PERC5TAB12 PO; -TYLE325T PO; +[UNRECOGNIZED DRUG - CODE] PO
[2018-02-20 07:31] VITALS: BP 172/82; PULSE 82; RESP 18; TEMP 98.6; O2SAT 100
--- NOTE | 2018-02-20 09:29 | PD ---
HPI . Left hand and left foot pain Chief Complaint: Pain: Acute or Chronic Time Seen by Provider: 07:40 Travel History International Travel<30 days: No Contact w/Intl Traveler<30days: No Traveled to known affect area: No History of Present Illness HPI This patient presents complaining with left hand and left foot pain. She states that it started a week ago. She further states that she has run out of her oxycodone. Pain is exacerbated by movement and palpation. Pain is rated 10 /10. She has no associated fever or any other systemic complaints. PFSH Past Medical History Arthritis: Yes (RA) Blood Disorders: No Heart Rhythm Problems: No Cancer: No Cardiovascular Problems: Yes (STENTS) High Cholesterol: No Chemotherapy: No Chest Pain: No Congestive Heart Failure: Yes Diabetes: Yes Patient Takes Glucophage: No Dialysis: Yes Diminished Hearing: No Endocrine: Yes Gastrointestinal Disorders: No Genitourinary: No Hepatitis: Yes (HEP C) Hypertension: Yes Immune Disorder: No Implanted Vascular Access Dvce: Yes Kidney Stones: No Musculoskeletal: Yes Neurologic: No Psychiatric: No Reproductive: No Respiratory: No Myocardial Infarction: No Radiation Therapy: No Renal Failure: Yes Thyroid Disease: No Menopausal: Yes : 3 Para: 3 Past Surgical History Abdominal Surgery: Yes AICD: No Arteriovenous Shunt: No Body Medical Devices: cardiac stents Cardiac Surgery: No Section: Yes (X 3) Ear Surgery: No Endocrine Surgery: No Eye Surgery: No Genitourinary Surgery: No Gynecologic Surgery: Yes ( X3 LAST IN SEP 1980 ) Hysterectomy: Yes Insulin Pump: No Joint Replacement: No Neurologic Surgery: No Oral Surgery: No Pacemaker: No Thoracic Surgery: No Other Surgery: Yes (AV FISTULA PLACEMENT (L. ARM) - 2008) Social History Alcohol Use: No Tobacco Use: No Substance Use: No Allergies-Medications (Allergen,Severity, Reaction): Coded Allergies: latex (Unverified Allergy, Severe, 11/20/17) RASH Reported Meds & Prescriptions Reported Meds & Active Scripts Active Lactobacillus Acidophilus 1 Billion Cell Tab 1 Tab PO TIDAC Percocet (Oxycodone-Acetaminophen) 5-325 mg Tab 1 Tab PO Q6H PRN Aspirin Low Strength (Aspirin) 81 Mg Chew 162 Mg PO DAILY Nitrostat SL (Nitroglycerin) 0.4 Mg Subl 0.4 Mg SL UNSCH PRN Plavix (Clopidogrel Bisulfate) 75 Mg Tab 75 Mg PO DAILY Reported Diabetic Vitamin Capsule (Mv-Mn/Folic AC/Alip Acid/Coq10) 800 Mcg-150 Mg-50 Mg Capsule 1 Tab PO DAILY Metoprolol Tartrate 25 Mg Tab 25 Mg PO BID Tradjenta (Linagliptin) 5 Mg Tab 5 Mg PO DAILY Sensipar (Cinacalcet) 30 Mg Tab 60 Mg PO BID Doxazosin (Doxazosin Mesylate) 2 Mg Tab 2 Mg PO HS Folic Acid 1 Mg Tablet 1 Mg PO DAILY Hydroxychloroquine (Hydroxychloroquine Sulfate) 200 Mg Tab 200 Mg PO DAILY Takw with food Gabapentin 100 Mg Cap 100 Mg PO TID Review of Systems Except as stated in HPI: all other systems reviewed are Neg Physical Exam Narrative GENERAL: Awake and alert and in no acute distress. SKIN: Warm and dry. Her left third and fourth fingers are black consistent with chronic lack of circulation. Left toes 2 through 4 are also black consistent with chronic black circulation. Neither of these look like an acute problem. The more proximal skin is not red or hot. There is no crepitus. There is no foul drainage. HEAD: Normocephalic/atraumatic. EYES: Pupils are equal. Extraocular movements are intact. NECK: Normal range of motion. RESPIRATORY: Nonlabored respirations. MUSCULOSKELETAL: Atraumatic. NEUROLOGICAL: Nonfocal. PSYCHIATRIC: Appropriate mood and affect. Data Data Last Documented VS Vital Signs Date Time Temp Pulse Resp B/P (MAP) Pulse Ox O2 Delivery O2 Flow Rate FiO2 02/20/18 07:31 98.6 82 18 172/82 (112) 100 Orders Orders Lactic Acid (02/20/18 07:55) Labs Laboratory Tests Test 02/20/18 08:10 Lactic Acid Level 0.8 mmol/L MDM Medical Decision Making Medical Screen Exam Complete: Yes Emergency Medical Condition: Yes Medical Record Reviewed: Yes (The necrosis of her digits was noted on a previous physical exam in November. ) Differential Diagnosis Differential diagnosis includes cellulitis, abscess, PID, gangrene Narrative Course This patient presents complaining with pain in her left fingers and toes. The fingers and toes are necrotic. This is an old problem. The patient presents to us today because she is out of her narcotics. I will discharge her to home. I did check a lactic acid level to rule out a more acute infectious process. The lactic acid was negative. Diagnosis Primary Impression: Idiopathic aseptic necrosis of left finger(s) Additional Impression: Idiopathic aseptic necrosis of left toe(s) Patient Instructions: General Instructions Additional Instructions: You will need to see your primary care doctor for pain management. Disposition: 01 DISCHARGE HOME Condition: Stable Chasidy Soler MD Feb 20, 2018 09:29
[2018-02-20 09:48] VITALS: BP 168/72
== END 2018-02-20 09:50 | disposition home or self-care (01) ==
LOC: NEPC 07:26
DX: I96 Gangrene, not elsewhere classified (principal); M79.642 Pain in left hand; M79.672 Pain in left foot; M06.9 Rheumatoid arthritis, unspecified; I13.0 Hypertensive heart and chronic kidney disease with heart failure and stage 1 through stage 4 chronic kidney disease, or unspecified chronic kidney disease; I50.9 Heart failure, unspecified; N18.9 Chronic kidney disease, unspecified; E11.22 Type 2 diabetes mellitus with diabetic chronic kidney disease; Z99.2 Dependence on renal dialysis
CPT/HCPCS: 83605; 99283

== ENCOUNTER 2018-09-06 11:00 | Inpatient (IN) ==
[2018-09-06] MEDS ORDERED: Naloxone Inj 0.4 MG/ML Vial IV.PUSH ONE (11:12)
[2018-09-06 11:41] LABS: Baso % (Auto) 0.1 % (0.0-2.0); Eos # (Auto) 0.4 th/mm3 (0.0-0.4); Eos % (Auto) 1.7 % (0.0-4.0); Hematocrit 46.9 % (35.0-46.0); Lymph # (Auto) 0.4 th/mm3 (1.0-4.8); Lymph % (Auto) 1.7 % (9.0-44.0); Mean Corpuscular HGB Conc 31.9 % (32.0-36.0); Mean Corpuscular Hemoglobin 26.5 pg (27.0-34.0); Mean Corpuscular Volume 82.9 fL (80.0-100.0); Mean Platelet Volume 11.4 fL (7.0-11.0); Mono # (Auto) 0.5 th/mm3 (0.0-0.9); Neut # (Auto) 22.1 th/mm3 (1.8-7.7); Neut % (Auto) 94.5 % (16.0-70.0); Platelet Count 126 th/mm3 (150-450); Red Blood Count 5.66 mil/mm3 (4.00-5.30); White Blood Count 23.4 th/mm3 (4.0-11.0)
[2018-09-06 11:56] LABS: Activated Partial Thrombo Time 31.2 sec (24.3-30.1); INR 1.6 Ratio; Prothrombin Time 15.8 sec (9.8-11.6)
--- NOTE | 2018-09-06 12:01 | XR ---
EXAM DATE: 09/06/2018 11:10 AM EDT AGE/SEX: 58 years / Female INDICATIONS: Fever, short of breath, weakness CLINICAL DATA: This is the patient's initial encounter. Patient reports that signs and symptoms have been present for 1 day and indicates a pain score of Nonresponsive. MEDICAL/SURGICAL HISTORY: Diabetes. Hypertension. Renal failure, chronic. dialysis . AV héctor nt left arm, left leg amputation COMPARISON: [facility], CHEST SINGLE AP, 11/26/2017. . FINDINGS: Diffusely increased interstitial prominence. Minimal left basilar airspace disease. Cardiac silhouett e is mildly enlarged with indistinct central pulmonary vascularity. Remainder of the exam is unchange d. CONCLUSION: 1. Cardiomegaly with positive fluid balance. 2. Minimal left lung base airspace disease, presumably atelectasis. Electronically signed by: Antione Hernández MD 09/06/2018 12:00 PM EDT
[2018-09-06] MEDS ORDERED: Vancomycin Inj 1,000 MG in Sodium Chlor 0.9% Inj 250 ML IV.SIG STA (12:02)
[2018-09-06] MEDS ORDERED: Piperacil/Tazo 4.5 GM Premix 4.5 GM/100 ML BAG IV.SIG STA (12:02)
[2018-09-06 12:05] LABS: Alanine Aminotransferase 27 U/L (10-53); Albumin 1.9 g/dL (3.4-5.0); Alkaline Phosphatase 356 U/L (45-117); Anion Gap 15 meq/L (5-15); Aspartate Aminotransferase 55 U/L (15-37); Blood Urea Nitrogen 83 mg/dL (7-18); Calcium 8.5 mg/dL (8.5-10.1); Carbon Dioxide 21.7 meq/L (21.0-32.0); Chloride 100 meq/L (98-107); Creatine Kinase 604 U/L (26-192); Glomerular Filtration Rate 5 mL/min (>89); Glucose,Random 221 mg/dL (74-106); Magnesium 2.3 mg/dL (1.5-2.5); Phosphorus 8.9 mg/dL (2.5-4.9); Sodium 137 meq/L (136-145); Total Protein 7.2 g/dL (6.4-8.2); Troponin I 0.53 ng/mL (0.02-0.05)
[2018-09-06 12:06] LABS: Potassium 6.3 meq/L (3.5-5.1)
[2018-09-06] MEDS ORDERED: Sodium Bicarbonate 8.4% Inj 50 MEQ/50 ML Syringe IV.PUSH ONE (12:12)
--- NOTE | 2018-09-06 12:13 | CT ---
EXAM DATE: 09/06/2018 11:15 AM EDT AGE/SEX: 58 years / Female INDICATIONS: Altered mental status. CLINICAL DATA: This is the patient's initial encounter. Patient reports that signs and symptoms have been present for 1 day and indicates a pain score of Nonresponsive. MEDICAL/SURGICAL HISTORY: Diabetes. . RADIATION DOSE: 42.32 CTDI (mGy) COMPARISON: [facility] [place] [facility] [place]IN [place]/O [place], 11/30/2017. . TECHNIQUE: CT of the head without contrast. Using automated exposure control and adjustment of the mA and/or kV according to patient size, radiation dose was kept as low as reasonably achievable to ob tain optimal diagnostic quality images. DICOM format image data is available electronically for revi ew and comparison. FINDINGS: There is diffuse atrophy. No hemorrhage, mass or signs of acute infarction. No fractures. Vertebral a rtery and carotid artery calcifications are noted. CONCLUSION: 1. Atrophy and atherosclerosis. . Electronically signed by: Arvind Reveles MD 09/06/2018 12:11 PM EDT
[2018-09-06 12:16] LABS: Acanthocytes Occ; Lymphocytes 2 % (9-44); Ovalocytes 2+; Tallied Nucleated RBC 1 (0-0)
[2018-09-06 12:17] LABS: Toxic Vacuolation Present
[2018-09-06 12:18] LABS: CKMB Percent 3.6 % (0.0-4.0); Creatine Kinase MB 21.5 ng/mL (0.5-3.6)
[2018-09-06] MEDS ORDERED: Bisacodyl 10 MG Supp RECTAL PRN (12:19)
[2018-09-06] MEDS ORDERED: Gelatin 12 MM/7 MM Topical Foam TOPICAL PRN (12:21)
[2018-09-06] MEDS ORDERED: Sod Chloride 0.9% Inj 1,000 ML IV.CONT PRN (12:21)
[2018-09-06] MEDS ORDERED: Sod Chloride 0.9% Inj 1,000 ML OTHER PRN ×2 (12:21)
[2018-09-06] MEDS ORDERED: Heparin 10,000 UNITS/10 ML Vial (for IV use) OTHER PRN ×2 (12:21→14:53)
[2018-09-06] MEDS ORDERED: Acetaminophen 325 MG Tablet PO PRN ×2 (12:21→14:50)
[2018-09-06] MEDS ORDERED: Vancomycin Consult Pharmacy OTHER PRN (12:24)
[2018-09-06 12:36] LABS: ABG PCO2 35 mmHg (38-42); ABG PO2 99 mmHg (61-120)
--- NOTE | 2018-09-06 12:57 | CT ---
EXAM DATE: 09/06/2018 11:15 AM EDT AGE/SEX: 58 years / Female INDICATIONS: Abdomen pain. CLINICAL DATA: This is the patient's initial encounter. Patient reports that signs and symptoms have been present for 1 day and indicates a pain score of Nonresponsive. MEDICAL/SURGICAL HISTORY: Diabetes. None. RADIATION DOSE: 5.82 CTDI (mGy) COMPARISON: [facility], CTA RUNOFF W 3D RECON, 11/23/2017. . TECHNIQUE: Multiple contiguous axial images were obtained through the abdomen. Images were obtained using multiple row detector helical technique. Using automated exposure control and adjustment of the mA and/or kV according to patient size, radiation dose was kept as low as reasonably achievable to o btain optimal diagnostic quality images. DICOM format image data is available electronically for rev iew and comparison. FINDINGS: LOWER LUNGS: Minimal left basilar groundglass opacities. Prominent coronary artery calcifications. LIVER: Diffusely homogeneous density without intrahepatic ductal dilatation or volume loss. SPLEEN: Homogeneous density without enlargement. PANCREAS: Grossly unremarkable. KIDNEYS: Redemonstration of a large solid mass arising from the superior pole of the right kidney me asuring 6.2 x 6.1 cm. Small end-stage appearing kidneys bilaterally. 1.6 cm cyst in the inferior pole the left kidney. ADRENAL GLANDS: Unremarkable. AORTA: Extensive diffuse vascular calcifications. Nonaneurysmal aorta. BOWEL/MESENTERY: Moderate amount of stool in the rectum. No dilated loops of bowel. No free fluid or drainable fluid collections. No free air. ABDOMINAL WALL: Intact. BLADDER: Decompressed and grossly unremarkable. REPRODUCTIVE: Grossly unremarkable. BONY STRUCTURES: No focal lytic or blastic bony lesions. CONCLUSION: 1. Moderate stool in the rectum. No dilated loops of bowel to suggest obstruction. 2. Persistent large solid mass arising from the superior pole the right kidney measuring up to 6.2 c m. This is a renal cell carcinoma until proven otherwise. 3. End-stage appearing kidneys bilaterally. 4. Prominent diffuse vascular calcifications. Electronically signed by: Antione Hernández MD 09/06/2018 12:55 PM EDT
--- NOTE | 2018-09-06 13:13 | P.HPCC ---
History of Present Illness Primary Care Physician: No Primary Care Physician Chief Complaint: AMS History of Present Illness: No history is obtainable from the patient due to altered mental status. All history obtained from chart review and discussion with ED attending. Patient is a 58-year-old -Turkish female with past medical history of type 2 diabetes, hypertension, hyperlipidemia, ESRD on HD M/W/F, CHF Echo 03/22/07 EF 30 -35%, CAD, s/p LAD stent 06/08, status post left BKA. Patient was brought to the emergency department by EMS for altered mental status. Apparently patient was found lying on the floor between 2 dressers, missed two dialysis appointments. CT of the head was negative for acute findings chest x-ray showed pulmonary vascular congestion, left lower lobe atelectasis. CT abdomen pelvis showed large 6.2 cm renal mass which has grown in size since last scan in Nov 2017, and suspicious for renal cell carcinoma. Her WBC count was 23.4 with left shift, with altered mental status this was most likely secondary to severe sepsis. Patient was empirically given vancomycin and Zosyn in the ED after getting blood cultures. Also her potassium was 6.3 patient is receiving bicarb now and nephrology had been contacted for stat dialysis I evaluated the patient in the emergency department. Patient is very lethargic encephalopathic. She mumbles a few words but did not follow commands. Even though very lethargic at this point she is protecting airway. In addition to IV bicarb I will also give 5 units of insulin and IV dextrose. Antibiotics will be continued-renally dosed vancomycin and Zosyn. Will request nephrology and urology consult. At this time critically ill with severe sepsis. - Diagnosis (1) Toxic metabolic encephalopathy (2) Severe sepsis (3) Altered mental status (4) Hyperkalemia (5) ESRD (end stage renal disease) (6) CAD (coronary artery disease) (7) PAD (peripheral artery disease) (8) DM2 (diabetes mellitus, type 2) (9) Hypertension (10) Ischemic cardiomyopathy Inpatient Certification: I certify that the inpatient services were ordered in accordance with Medicare regulations governing the order. This includes certification that hospital inpatient services are reasonable and necessary and in the case of services not specified as inpatient-only under 42 CFR 419.22(n), that they are appropriately provided as inpatient services in accordance to with the 2-midnight benchmark under 43 CFR 412.3(e) Estimated Total Length of Stay (Days): 4 Plans for Post Hospital Care: Not yet determined Review of Systems unobtainable due to mental status PMFSH - History History Provided By: Patient - Medical / Surgical Hx Neg / Unobtainable Medical Problems Denied: Unable to Obtain - Medical History Medical History: Medical History (Last Reviewed 09/06/18 @ 13:19 by Briana Fregoso MD) Diabetes Dialysis patient Gangrene - Tobacco History Second Hand Smoke Exposure: No Smoking Status: Unknown if ever smoked - Alcohol History How Often Do You Have a Drink Containing Alcohol: Unable to Obtain - Substance Use History Substance History: Unable to Obtain - Travel History Recent Travel in the [place] Within the Last 8 Weeks: No Recent Travel Out of the Country Within the Last 8 Weeks: No - Immunization History Tetanus Immunization: Unable to Assess Medications and Allergies Active Medications: Active Medications Acetaminophen (Tylenol) 650 mg PO UNSCH PRN PRN Reason: SEE LABEL COMMENTS Acetaminophen (Tylenol) 650 mg PO Q6H PRN PRN Reason: PAIN 1-10 AND/OR FEVER >101F Al Hydroxide/Mg Hydroxide (Milk Of Nathalie Liq) 30 ml PO Q12H PRN PRN Reason: Mild Constipation Albuterol (Albuterol Neb (Diamond)) 2.5 mg NEB Q2HR NEB PRN PRN Reason: SHORTNESS OF BREATH/WHEEZING Albuterol (Duoneb Neb (Prn)) 1 ampul NEB Q6HR NEB DAIMOND Bisacodyl (Dulcolax Supp) 10 mg RECTAL DAILY PRN PRN Reason: SEVERE CONSITIPATION Chlorhexidine Gluconate (Chlorhexidine 2% Cloth) 3 pack TOPICAL DAILY@0400 DIAMOND Stop: 09/12/18 03:59 Chlorhexidine Gluconate (Chlorhexidine 2% Cloth) 3 pack TOPICAL DAILY@0400 PRN PRN Reason: Extra cloth needed Stop: 09/12/18 03:59 Clonidine HCl (Catapres) 0.1 mg PO UNSCH PRN PRN Reason: SEE LABEL COMMENTS Diphenhydramine HCl (Benadryl) 25 mg PO UNSCH PRN PRN Reason: SEE LABEL COMMENTS Famotidine (Pepcid Pf Inj) 20 mg IV.PUSH Q12HR DIAMOND Gelatin (Gelfoam 12 Mm/7 Mm Topical) 1 foam TOPICAL PRN PRN PRN Reason: help stop bleeding from site Gentamicin Sulfate (Gentamicin Inj) 20 mg OTHER WITH DIALYSIS PRN PRN Reason: Dwell Gentamycin Lock Heparin Sodium (Porcine) (Heparin Inj) 8,000 units OTHER WITH DIALYSIS PRN PRN Reason: for machine prime Heparin Sodium (Porcine) (Heparin Inj) 1,000 units OTHER WITH DIALYSIS PRN PRN Reason: Dwell Heparin to Fill Catheter Heparin Sodium (Porcine) (Heparin Inj) 5,000 units SQ Q12H DIAMOND Albumin Human (Flexbumin 25% Inj) 100 mls @ 60 mls/hr IV.SIG WITH DIALYSIS PRN PRN Reason: hypotension / volume replace Sodium Chloride (Ns Inj) 1,000 mls @ 0 mls/hr OTHER .Q0M PRN PRN Reason: for prime and rinse back Sodium Chloride (Ns Inj) 1,000 mls @ 200 mls/hr OTHER .Q5H PRN PRN Reason: for dialyzer flush PRN Sodium Chloride (Ns Inj) 1,000 mls @ 0 mls/hr IV.CONT .Q0M PRN PRN Reason: hypotension / volume replace Piperacillin/Tazobactam/Dextrose (Zosyn 2.25 Gm Premix) 50 mls @ 100 mls/hr IV.SIG Q8H DIAMOND Lactulose (Lactulose Liq) 30 ml PO DAILY PRN PRN Reason: SEVERE CONSITIPATION Mannitol (Mannitol Inj) 12.5 gm IV.PUSH UNSCH PRN PRN Reason: hypotension / volume replace Nitroglycerin (Nitrostat Sl) 0.4 mg SL Q5M PRN PRN Reason: CHEST PAIN Ondansetron HCl (Zofran Inj) 4 mg IV.PUSH UNSCH PRN PRN Reason: NAUSEA OR VOMITING Pharmacy Profile Note (Vancomycin Consult Pharmacy) 1 each OTHER UNSCH PRN PRN Reason: Pharmacy to dose Senna/Docusate Sodium (Elsy-Colace) 1 tab PO BID DIAMOND Sennosides (Senokot) 17.2 mg PO Q12H PRN PRN Reason: Moderate Constipation Sodium Chloride (Ns Flush) 5 ml IV.FLUSH PRN PRN PRN Reason: flush each lumen during HD Sodium Chloride (Ns Flush) 2 ml IV.FLUSH BID DIAMOND Sodium Chloride (Ns Flush) 2 ml IV.FLUSH PRN PRN PRN Reason: FLUSH AFTER USING IV ACCESS Allergies Allergy/AdvReac Type Severity Reaction Status Date / Time latex Allergy Severe Edema Unverified 09/06/18 11:19 Home Medications Medication Instructions Recorded Confirmed Type Unable to Obtain Home Meds 09/06/18 09/06/18 History Results - Labs CBC & Chem 7: 09/06/18 11:26 09/06/18 11:26 Labs: Short CBC 09/06/18 Range/Units 11:26 WBC 23.4 H (4.0-11.0) th/mm3 Hgb 15.0 (11.6-15.3) gm/dL Hct 46.9 H (35.0-46.0) % Plt Count 126 L (150-450) th/mm3 BMP 09/06/18 11:26 Sodium 137 Potassium 6.3 H Chloride 100 Carbon Dioxide 21.7 BUN 83 H Creatinine 9.31 H Calcium 8.5 Cardiac Enzymes 09/06/18 Range/Units 11:26 Total Creatine Kinase 604 H (26-192) U/L CK-MB (CK-2) 21.5 H (0.5-3.6) ng/mL Troponin I 0.53 H (0.02-0.05) ng/mL Liver Function 09/06/18 Range/Units 11:26 Total Bilirubin 1.0 (0.2-1.0) mg/dL AST 55 H (15-37) U/L ALT 27 (10-53) U/L Alkaline Phosphatase 356 H (45-117) U/L Albumin 1.9 L (3.4-5.0) g/dL - Imaging Impressions Abdomen/Pelvis CT 09/06/18 11:10 CONCLUSION: 1. Moderate stool in the rectum. No dilated loops of bowel to suggest obstruction. 2. Persistent large solid mass arising from the superior pole the right kidney measuring up to 6.2 cm. This is a renal cell carcinoma until proven otherwise. 3. End-stage appearing kidneys bilaterally. 4. Prominent diffuse vascular calcifications. Chest X-Ray 09/06/18 11:10 CONCLUSION: 1. Cardiomegaly with positive fluid balance. 2. Minimal left lung base airspace disease, presumably atelectasis. Head CT 09/06/18 11:10 CONCLUSION: 1. Atrophy and atherosclerosis. . Exam Vital signs: Vital Signs 09/06/18 11:08 09/06/18 12:20 Temperature 97.6 F Pulse Rate 81 88 Respiratory Rate 20 20 Blood Pressure 145/74 H Pulse Oximetry 100 Intake & Output 09/05/18 09/06/18 09/06/18 18:59 06:59 18:59 Weight 49.895 kg Narrative: GENERAL: 58-year-old AA female, lying in bed very lethargic mumbling few words SKIN: Warm and dry. HEAD: Atraumatic. Normocephalic. EYES: Pupils equal and round, 2 mm reactive. No scleral icterus. ENT: No nasal bleeding or discharge. Mucous membranes dry. NECK: Trachea midline. No JVD. CARDIOVASCULAR: RRR. S1, S2 no S4. 2/6 pansystolic murmur RESPIRATORY: Clear to auscultation. No wheezes rales or rhonchi GASTROINTESTINAL: Abdomen soft, non-tender, nondistended. MUSCULOSKELETAL: AV fistula in left upper arm with palpable thrill. s/p L BKA NEUROLOGICAL: Patient is lethargic encephalopathic. Intermittently moves extremities do not follow commands. Mumbles few words. Cannot check for orientation Septic Shock Reassessment Septic shock perfusion: reassessment completed Caprini VTE Risk Assessment Caprini VTE Risk Assessment: Moderate/High Risk (score >= 2) Caprini Risk Assessment Model: Point Value = 1 Point Value = 2 Point Value = 3 Point Value = 5 Age 41-60 Minor surgery BMI > 25 kg/m2 Swollen legs Varicose veins or History of unexplained or recurrent spontaneous Oral contraceptives or hormone replacement Sepsis (< 1 month) Serious lung disease, including pneumonia (< 1 month) Abnormal pulmonary function Acute myocardial infarction Congestive heart failure (< 1 month) History of inflammatory bowel disease Medical patient at bed rest Age 61-74 Arthroscopic surgery Major open surgery (> 45 min) Laparoscopic surgery (> 45 min) Malignancy Confined to bed (> 72 hours) Immobilizing plaster cast Central venous access Age >= 75 History of VTE Family history of VTE Factor V Leiden Prothrombin [id number] Lupus anticoagulant Anticardiolipin antibodies Elevated serum homocysteine Heparin-induced thrombocytopenia Other congenital or acquired thrombophilia Stroke (< 1 month) Elective arthroplasty Hip, pelvis, or leg fracture Acute spinal cord injury (< 1 month) Prophylaxis Regimen: Total Risk Factor Score Risk Level Prophylaxis Regimen 0-1 Low Early ambulation 2 Moderate Order ONE of the following: *Sequential Compression Device (SCD) *Heparin 5000 units SQ BID 3-4 Higher Order ONE of the following medications: *Heparin 5000 units SQ TID *Enoxaparin/Lovenox 40 mg SQ daily (WT < 150 kg, CrCl > 30 mL/min) *Enoxaparin/Lovenox 30 mg SQ daily (WT < 150 kg, CrCl > 10-29 mL/min) *Enoxaparin/Lovenox 30 mg SQ BID (WT < 150 kg, CrCl > 30 mL/min) AND/OR *Sequential Compression Device (SCD) 5 or more Highest Order ONE of the following medications: *Heparin 5000 units SQ TID (Preferred with Epidurals) *Enoxaparin/Lovenox 40 mg SQ daily (WT < 150 kg, CrCl > 30 mL/min) *Enoxaparin/Lovenox 30 mg SQ daily (WT < 150 kg, CrCl > 10-29 mL/min) *Enoxaparin/Lovenox 30 mg SQ BID (WT < 150 kg, CrCl > 30 mL/min) AND *Sequential Compression Device (SCD) Assessment and Plan - Problem List (1) Toxic metabolic encephalopathy Code(s): G92 - Toxic encephalopathy Status: Acute (2) Severe sepsis Code(s): A41.9 - Sepsis, unspecified organism; R65.20 - Severe sepsis without septic shock Status: Acute (3) Altered mental status Code(s): R41.82 - Altered mental status, unspecified Status: Acute (4) Hyperkalemia Code(s): E87.5 - Hyperkalemia Status: Acute (5) ESRD (end stage renal disease) Code(s): N18.6 - End stage renal disease Status: Chronic (6) CAD (coronary artery disease) Code(s): I25.10 - Atherosclerotic heart disease of [place] coronary artery without angina pectoris Status: Chronic (7) PAD (peripheral artery disease) Code(s): I73.9 - Peripheral vascular disease, unspecified Status: Chronic (8) DM2 (diabetes mellitus, type 2) Code(s): E11.9 - Type 2 diabetes mellitus without complications Status: Chronic (9) Hypertension Code(s): I10 - Essential (primary) hypertension Status: Chronic (10) Ischemic cardiomyopathy Code(s): I25.5 - Ischemic cardiomyopathy Status: Chronic - Assessment and Plan Plan: Assessment and Plan NEURO: Toxic metabolic encephalopathy History of peripheral neuropathy History of glaucoma Avoid any sedating medication CT head negative for acute findings Encephalopathy most likely from metabolic causes/severe sepsis RESP: Respiratory insufficiency Currently on NC DuoNeb every 6 hours scheduled and as needed Incentive spirometry every hour awake Watch closely for airway protection, may need endotracheal intubation CV: Coronary artery disease with prior stents (LAD stent 06/08) Chronic systolic heart failure ejection fraction 30-35% 2016 Severe TR s/p L BKA s/p R iliofemoral bypass and R fem-pop bypass by Dr. Ramirez 11/26/17 Peripheral arterial disease Hypertension, dyslipidemia Unable to obtain home medications at this time due to altered mental status Place on baby aspirin when p.o. intake possible PRN IV labetalol for hypertension if needed Unable to fluid resuscitate due to end-stage renal disease GI: N.p.o., IV famotidine FEN/RENAL: Hyperkalemia ESRD Large right renal mass suspicious for renal cell carcinoma Start hemodialysis planned, contacted nephrology team. Give IV insulin with dextrose and, IV bicarb Hemodialysis Thursday/Thursday/Thursday per nephrology, Dr Ahumada. Urology consulted for right renal mass ID: Severe sepsis Source of sepsis is unclear at this time Received vancomycin and Zosyn in the ED, continue both renally dosed Follow-up on blood sputum culture HEME: Anemia of chronic disease No indication for blood transfusion at this time ENDO: Diabetes mellitus, type II Low-dose insulin sliding scale q6h PROPH: Heparin 5000 subcutaneous to 12 for DVT prophylaxis-resumed. IV famotidine for stress ulcer prophylaxis. ACCESS: PIV providing adequate access at this time. Critical care 50 minutes excluding procedures Code Status: Full Discussed Condition With:
--- NOTE | 2018-09-06 13:24 | ED ---
HPI General Chief Complaint: Altered Mental Status Stated Complaint: Poss AMS Time Seen by Provider: 09/06/18 11:04 Source: EMS, RN notes reviewed and old records reviewed Mode of arrival: EMS Limitations: altered mental status History of Present Illness HPI narrative: 58-year-old female who presents with altered mental status that was found down at her house after missing 2 dialysis appointments. She cannot tell me how long she was down for. She states her last name and history is very difficult to obtain. Related Data Home Medications Medication Instructions Recorded Confirmed Unable to Obtain Home Meds 09/06/18 09/06/18 Allergies Allergy/AdvReac Type Severity Reaction Status Date / Time latex Allergy Severe Edema Unverified 09/06/18 11:19 Review of Systems ROS Unobtainable ROS Unobtainable: unobtainable due to mental status PMFSH Medical History Medical History Diabetes (Acute) Dialysis patient (Acute) Gangrene (Acute) Social History Social History Substance History: Unable to Obtain Second Hand Smoke Exposure: No Smoking Status: Unknown if ever smoked How Often Do You Have a Drink Containing Alcohol: Unable to Obtain Recent Travel in [place] within the Last 8 Weeks: No Recent Out of Country Travel within the Last 8 Weeks: No Immunization History Tetanus Immunization: Unable to Assess Exam Narrative Exam Narrative: GENERAL: 58 y/o female who appears ill SKIN: Focused skin assessment warm/dry. HEAD: Atraumatic. Normocephalic. EYES: Pupils equal and round. No scleral icterus. No injection or drainage. ENT: No nasal bleeding or discharge. Mucous membranes pink and moist. NECK: Trachea midline. CARDIOVASCULAR: Regular rate and rhythm. RESPIRATORY: No accessory muscle use. MUSCULOSKELETAL: No obvious deformities. No clubbing. No cyanosis. NEUROLOGICAL: Opens eyes to voice, moans, states last name but will not answer other questions, moves extremities Course Reevaluation(s) Reevaluation #1: Patient at same GCS level with findings of fluid overload, hyperkalemia and leukocytosis. She was given broad-spectrum antibiotics and will get emergent bedside dialysis in the ICU. Patient given albuterol and bicarb while awaiting dialysis Consultations Consultation #1: Dr. Salazar agrees to admit Consultation #2: dr munson will arrange emergent dialysis Initial Documented Vital Signs Temperature 97.6 F 09/06/18 11:08 Pulse Rate 81 09/06/18 11:08 Respiratory Rate 20 09/06/18 11:08 Blood Pressure 145/74 H 09/06/18 11:08 Pulse Oximetry 100 09/06/18 11:08 Last Documented Vital Signs Temperature 97.6 F 09/06/18 11:08 Pulse Rate 88 09/06/18 12:20 Respiratory Rate 20 09/06/18 12:20 Blood Pressure 145/74 H 09/06/18 11:08 Pulse Oximetry 100 09/06/18 11:08 Critical Care Time Critical Care Time: Yes Total Critical Care Time: 31 Attestation: Aggregate critical care time was 31 minutes. Time to perform other separately billable procedures was not included in the critical care time. My time did not include minutes spent treating any other patients simultaneously or on activities that did not directly contribute to the patient's treatment. The services I provided to this patient were to treat and/or prevent clinically significant deterioration that could result in: Electrolyte derangement, fluid overload, I provided critical care services requiring my management, as noted below: Chart data review, documentation time, medication orders and management, vital sign assessments/reviewing monitor data, ordering and reviewing lab tests, ordering and interpreting/reviewing x-rays and diagnostic studies, care of the patient and discussion of the patient with the admitting physicians. Medical Decision Making MDM Narrative Medical decision making narrative: Patient arrives with altered mental status after found down. Will check blood work, imaging and closely monitor- currently protecting her airway Medical Screen Exam Complete: Yes Emergency Medical Condition: Yes Differential Diagnosis Differential Diagnosis: Intercranial injury, electrolyte abnormality, fluid overload, sepsis Lab Data Lab results reviewed: Yes I reviewed the patient's lab results. Result diagrams: 09/06/18 11:26 09/06/18 11:26 Lab Results 09/06/18 09/06/18 09/06/18 Range/Units 11:26 11:26 11:26 WBC 23.4 H (4.0-11.0) th/mm3 RBC 5.66 H (4.00-5.30) mil/mm3 Hgb 15.0 (11.6-15.3) gm/dL Hct 46.9 H (35.0-46.0) % MCV 82.9 (80.0-100.0) fL MCH 26.5 L (27.0-34.0) pg MCHC 31.9 L (32.0-36.0) % RDW 20.0 H (11.6-17.2) % Plt Count 126 L (150-450) th/mm3 MPV 11.4 H (7.0-11.0) fL Prelim Diff (Auto) Slide review pending Neut % (Auto) 94.5 H (16.0-70.0) % Lymph % (Auto) 1.7 L (9.0-44.0) % [place] % (Auto) 2.0 (0.0-8.0) % Eos % (Auto) 1.7 (0.0-4.0) % Baso % (Auto) 0.1 (0.0-2.0) % Neut # (Auto) 22.1 H (1.8-7.7) th/mm3 Lymph # (Auto) 0.4 L (1.0-4.8) th/mm3 [place] # (Auto) 0.5 (0.0-0.9) th/mm3 Eos # (Auto) 0.4 (0.0-0.4) th/mm3 Baso # (Auto) 0.0 (0.0-0.2) th/mm3 WBC Differential Manual diff final Seg Neuts % (Manual) 95 H (16-70) % Band Neuts % (Manual) 3 (0-6) % Lymphocytes % (Manual) 2 L (9-44) % Abs Neuts (Manual) 22.9 H (1.8-7.7) th/mm3 Nucleated RBCs/100 WBC 1 H (0-0) /100 WBC Differential Comment . Toxic Vacuolation Present H (None) Platelet Estimate Low L (Normal) Platelet Morphology Enlarged H (Normal) Ovalocytes 2+ H (None) Acanthocytes (Spur) Occ H (None) PT 15.8 H (9.8-11.6) sec INR 1.6 Ratio APTT 31.2 H (24.3-30.1) sec Puncture Site Patient Temperature O2 Saturation (90-100) % ABG pH (7.380-7.420) ABG pCO2 (38-42) mmHg ABG pO2 (61-120) mmHg ABG HCO3 (22-26) mmol/L ABG O2 Content (12.0-20.0) Vol % ABG Base Excess (-2-2) mmol/L ABG Methemoglobin (0-2) % Kyler Test Hemoglobin (12.0-16.0) G/DL Carboxyhemoglobin (0-4) % Inspired O2 % Critical Value Sodium 137 (136-145) meq/L Potassium 6.3 H (3.5-5.1) meq/L Chloride 100 (98-107) meq/L Carbon Dioxide 21.7 (21.0-32.0) meq/L Anion Gap 15 (5-15) meq/L BUN 83 H (7-18) mg/dL Creatinine 9.31 H (0.50-1.00) mg/dL Estimated GFR 5 L (>89) mL/min Random Glucose 221 H (74-106) mg/dL Lactic Acid (0.4-2.0) mmol/L Calcium 8.5 (8.5-10.1) mg/dL Phosphorus 8.9 H (2.5-4.9) mg/dL Magnesium 2.3 (1.5-2.5) mg/dL Total Bilirubin 1.0 (0.2-1.0) mg/dL AST 55 H (15-37) U/L ALT 27 (10-53) U/L Alkaline Phosphatase 356 H (45-117) U/L Ammonia (11-32) mcmol/L Total Creatine Kinase 604 H (26-192) U/L CK-MB (CK-2) 21.5 H (0.5-3.6) ng/mL CK-MB (CK-2) % 3.6 (0.0-4.0) % Troponin I 0.53 H (0.02-0.05) ng/mL Total Protein 7.2 (6.4-8.2) g/dL Albumin 1.9 L (3.4-5.0) g/dL 09/06/18 09/06/18 09/06/18 Range/Units 11:26 11:26 12:20 WBC (4.0-11.0) th/mm3 RBC (4.00-5.30) mil/mm3 Hgb (11.6-15.3) gm/dL Hct (35.0-46.0) % MCV (80.0-100.0) fL MCH (27.0-34.0) pg MCHC (32.0-36.0) % RDW (11.6-17.2) % Plt Count (150-450) th/mm3 MPV (7.0-11.0) fL Prelim Diff (Auto) Neut % (Auto) (16.0-70.0) % Lymph % (Auto) (9.0-44.0) % [place] % (Auto) (0.0-8.0) % Eos % (Auto) (0.0-4.0) % Baso % (Auto) (0.0-2.0) % Neut # (Auto) (1.8-7.7) th/mm3 Lymph # (Auto) (1.0-4.8) th/mm3 [place] # (Auto) (0.0-0.9) th/mm3 Eos # (Auto) (0.0-0.4) th/mm3 Baso # (Auto) (0.0-0.2) th/mm3 WBC Differential Seg Neuts % (Manual) (16-70) % Band Neuts % (Manual) (0-6) % Lymphocytes % (Manual) (9-44) % Abs Neuts (Manual) (1.8-7.7) th/mm3 Nucleated RBCs/100 WBC (0-0) /100 WBC Differential Comment Toxic Vacuolation (None) Platelet Estimate (Normal) Platelet Morphology (Normal) Ovalocytes (None) Acanthocytes (Spur) (None) PT (9.8-11.6) sec INR Ratio APTT (24.3-30.1) sec Puncture Site Right brachial Patient Temperature 98.6 O2 Saturation 95 (90-100) % ABG pH 7.40 (7.380-7.420) ABG pCO2 35 L (38-42) mmHg ABG pO2 99 (61-120) mmHg ABG HCO3 21 L (22-26) mmol/L ABG O2 Content 20.3 H (12.0-20.0) Vol % ABG Base Excess -3.0 L (-2-2) mmol/L ABG Methemoglobin 0.6 (0-2) % Kyler Test Present Hemoglobin 15.2 (12.0-16.0) G/DL Carboxyhemoglobin 1.3 (0-4) % Inspired O2 21 % Critical Value No Sodium (136-145) meq/L Potassium (3.5-5.1) meq/L Chloride (98-107) meq/L Carbon Dioxide (21.0-32.0) meq/L Anion Gap (5-15) meq/L BUN (7-18) mg/dL Creatinine (0.50-1.00) mg/dL Estimated GFR (>89) mL/min Random Glucose (74-106) mg/dL Lactic Acid 1.7 (0.4-2.0) mmol/L Calcium (8.5-10.1) mg/dL Phosphorus (2.5-4.9) mg/dL Magnesium (1.5-2.5) mg/dL Total Bilirubin (0.2-1.0) mg/dL AST (15-37) U/L ALT (10-53) U/L Alkaline Phosphatase (45-117) U/L Ammonia 16 (11-32) mcmol/L Total Creatine Kinase (26-192) U/L CK-MB (CK-2) (0.5-3.6) ng/mL CK-MB (CK-2) % (0.0-4.0) % Troponin I (0.02-0.05) ng/mL Total Protein (6.4-8.2) g/dL Albumin (3.4-5.0) g/dL Imaging Data Attestation: I personally reviewed and interpreted this imaging study as follows : Radiologist's impression: Abdomen/Pelvis CT 09/06/18 11:10 CONCLUSION: 1. Moderate stool in the rectum. No dilated loops of bowel to suggest obstruction. 2. Persistent large solid mass arising from the superior pole the right kidney measuring up to 6.2 cm. This is a renal cell carcinoma until proven otherwise. 3. End-stage appearing kidneys bilaterally. 4. Prominent diffuse vascular calcifications. Chest X-Ray 09/06/18 11:10 CONCLUSION: 1. Cardiomegaly with positive fluid balance. 2. Minimal left lung base airspace disease, presumably atelectasis. Head CT 09/06/18 11:10 CONCLUSION: 1. Atrophy and atherosclerosis. . Discharge Plan Discharge Disposition Patient Disposition: 30 Still Patient Discharge Details Diagnosis: Altered mental status, Acute hyperkalemia, Fluid overload, Leukocytosis, Kidney mass Physicians Team ED Provider: Briana Fregoso Primary Care Provider: Primary Care Ileana Gr Attending Provider: Caty Salazar Other Providers: Nazario Munson Status ED Status: Admitted Patient
--- NOTE | 2018-09-06 13:43 | P.CONNP ---
History of Present Illness Service: Nephrology Reason for Consult: ESRD Primary Care Provider: No Primary Care Physician Chief Complaint: AMS History of Present Illness: Ms Tavares is known to me from [facility] dialysis unit and also multiple hospital admissions. She has history of PAD, s/p left BKA, history of CHF, with EF of about 35%, CAD, s/p stent in LAD, and right renal mass. She had presented with non healing wound, later turned into gangrene in the left foot. She vehemently refused BKA on several occasions, finally agreed to it. Also is known to have renal mass, had refused any workup for it. I had seen her last week at dialysis, she was complaining of back pain, and had agreed to see Urologist for evaluation. We were in the process of making referral. Patient has missed past 2 dialysis treatments. She presents with altered mental status, she was apparently found down in her room. She was seen in the ER, she is unable to provide any history. She mumbled a few unintelligible words. Hyperkalemia is noted. I have ordered emergent dialysis. Review of Systems unobtainable due to mental status PMFSH - History History Provided By: Patient - Medical / Surgical Hx Neg / Unobtainable Medical Problems Denied: Unable to Obtain - Medical History Medical History: Medical History (Last Reviewed 09/06/18 @ 13:19 by Briana Fregoso MD) Diabetes Dialysis patient Gangrene - Tobacco History Second Hand Smoke Exposure: No Smoking Status: Unknown if ever smoked - Alcohol History How Often Do You Have a Drink Containing Alcohol: Unable to Obtain - Substance Use History Substance History: Unable to Obtain - Travel History Recent Travel in the [place] Within the Last 8 Weeks: No Recent Travel Out of the Country Within the Last 8 Weeks: No - Immunization History Tetanus Immunization: Unable to Assess Medications and Allergies Active Medications: Active Medications Acetaminophen (Tylenol) 650 mg PO UNSCH PRN PRN Reason: SEE LABEL COMMENTS Acetaminophen (Tylenol) 650 mg PO Q6H PRN PRN Reason: PAIN 1-10 AND/OR FEVER >101F Al Hydroxide/Mg Hydroxide (Milk Of Magnesia Liq) 30 ml PO Q12H PRN PRN Reason: Mild Constipation Albuterol (Albuterol Neb (Prn)) 2.5 mg NEB Q2HR NEB PRN PRN Reason: SHORTNESS OF BREATH/WHEEZING Albuterol (Duoneb Neb (Diamond)) 1 ampul NEB Q6HR NEB [facility] Bisacodyl (Dulcolax Supp) 10 mg RECTAL DAILY PRN PRN Reason: SEVERE CONSITIPATION Chlorhexidine Gluconate (Chlorhexidine 2% Cloth) 3 pack TOPICAL DAILY@0400 DIAMOND Stop: 09/12/18 03:59 Chlorhexidine Gluconate (Chlorhexidine 2% Cloth) 3 pack TOPICAL DAILY@0400 PRN PRN Reason: Extra cloth needed Stop: 09/12/18 03:59 Clonidine HCl (Catapres) 0.1 mg PO UNSCH PRN PRN Reason: SEE LABEL COMMENTS Dextrose (D50w Syringe) 25 ml IV.PUSH ONCE ONE Stop: 09/06/18 13:16 Diphenhydramine HCl (Benadryl) 25 mg PO UNSCH PRN PRN Reason: SEE LABEL COMMENTS Famotidine (Pepcid Pf Inj) 20 mg IV.PUSH Q12HR [facility] Gelatin (Gelfoam 12 Mm/7 Mm Topical) 1 foam TOPICAL PRN PRN PRN Reason: help stop bleeding from site Gentamicin Sulfate (Gentamicin Inj) 20 mg OTHER WITH DIALYSIS PRN PRN Reason: Dwell Gentamycin Lock Heparin Sodium (Porcine) (Heparin Inj) 8,000 units OTHER WITH DIALYSIS PRN PRN Reason: for machine prime Heparin Sodium (Porcine) (Heparin Inj) 1,000 units OTHER WITH DIALYSIS PRN PRN Reason: Dwell Heparin to Fill Catheter Heparin Sodium (Porcine) (Heparin Inj) 5,000 units SQ Q12H [facility] Albumin Human (Flexbumin 25% Inj) 100 mls @ 60 mls/hr IV.SIG WITH DIALYSIS PRN PRN Reason: hypotension / volume replace Sodium Chloride (Ns Inj) 1,000 mls @ 0 mls/hr OTHER .Q0M PRN PRN Reason: for prime and rinse back Sodium Chloride (Ns Inj) 1,000 mls @ 200 mls/hr OTHER .Q5H PRN PRN Reason: for dialyzer flush PRN Sodium Chloride (Ns Inj) 1,000 mls @ 0 mls/hr IV.CONT .Q0M PRN PRN Reason: hypotension / volume replace Piperacillin/Tazobactam/Dextrose (Zosyn 2.25 Gm Premix) 50 mls @ 100 mls/hr IV.SIG Q8H [facility] Insulin Human Regular (Novolin R Inj) 5 units IV.PUSH ONCE ONE Stop: 09/06/18 13:15 Lactulose (Lactulose Liq) 30 ml PO DAILY PRN PRN Reason: SEVERE CONSITIPATION Mannitol (Mannitol Inj) 12.5 gm IV.PUSH UNSCH PRN PRN Reason: hypotension / volume replace Nitroglycerin (Nitrostat Sl) 0.4 mg SL Q5M PRN PRN Reason: CHEST PAIN Ondansetron HCl (Zofran Inj) 4 mg IV.PUSH UNSCH PRN PRN Reason: NAUSEA OR VOMITING Pharmacy Profile Note (Vancomycin Consult Pharmacy) 1 each OTHER UNSCH PRN PRN Reason: Pharmacy to dose Senna/Docusate Sodium (Elsy-Colace) 1 tab PO BID [facility] Sennosides (Senokot) 17.2 mg PO Q12H PRN PRN Reason: Moderate Constipation Sodium Chloride (Ns Flush) 5 ml IV.FLUSH PRN PRN PRN Reason: flush each lumen during HD Sodium Chloride (Ns Flush) 2 ml IV.FLUSH BID DIAMOND Sodium Chloride (Ns Flush) 2 ml IV.FLUSH PRN PRN PRN Reason: FLUSH AFTER USING IV ACCESS Allergies Allergy/AdvReac Type Severity Reaction Status Date / Time latex Allergy Severe Edema Unverified 09/06/18 11:19 Home Medications Medication Instructions Recorded Confirmed Type Unable to Obtain Home Meds 09/06/18 09/06/18 History Exam Vital signs: Vital Signs 09/06/18 11:08 09/06/18 12:20 Temperature 97.6 F Pulse Rate 81 88 Respiratory Rate 20 20 Blood Pressure 145/74 H Pulse Oximetry 100 Intake & Output 09/05/18 09/06/18 09/06/18 18:59 06:59 18:59 Weight 49.895 kg - Constitutional no acute distress Comments: confused, disoriented, almost obtunded. - Routine HEENT Exam Head: Present: normocephalic, atraumatic Eye: Present: EOMI, PERRL - Routine Neck Exam Present: supple, full ROM. Absent: JVD, lymphadenopathy - Routine Cardiovascular Exam Present: RRR, S1, S2 - Routine Abdominal Exam Present: soft - Routine Skin Exam Comments: s/p left BKA. Some excoriation of skin at the stump - Routine Neurological Exam confusion and disorientation Results - Lab Results 09/06/18 11:26 09/06/18 11:26 Most recent lab results ABG pH 7.40 (7.380-7.420) 09/06/18 12:20 ABG pCO2 35 mmHg (38-42) L 09/06/18 12:20 ABG pO2 99 mmHg (61-120) 09/06/18 12:20 ABG HCO3 21 mmol/L (22-26) L 09/06/18 12:20 Calcium 8.5 mg/dL (8.5-10.1) 09/06/18 11:26 Phosphorus 8.9 mg/dL (2.5-4.9) H 09/06/18 11:26 Magnesium 2.3 mg/dL (1.5-2.5) 09/06/18 11:26 Assessment and Plan - Assessment (1) ESRD (end stage renal disease) Code(s): N18.6 - End stage renal disease Status: Chronic Plan: She has missed dialysis on Thursday and missed again today. Presents with confusion and disorientation. Her Hemoglobin is unusually high, suggestive of intravascular volume depletion and Hemoconcentration. Dialysis today. Orders written, internal auditor informed. Monitor fluid and electrolytes. She has patent AVF in the left arm. (2) Hyperkalemia Code(s): E87.5 - Hyperkalemia Status: Acute Plan: Dialysis today on 1k. Monitor. Should be on low potassium diet. If NPO, she should be on D10NS. (3) Altered mental status Code(s): R41.82 - Altered mental status, unspecified Status: Acute Plan: multifactorial. Could be due to uremia, but also could be due to sepsis. Supportive care. Monitor. (4) Renal mass Code(s): N28.89 - Other specified disorders of kidney and ureter Status: Acute Plan: Renal mass has grown in sized, most likely malignancy. Consider urology evaluation. (5) Severe sepsis Code(s): A41.9 - Sepsis, unspecified organism; R65.20 - Severe sepsis without septic shock Status: Acute Plan: Source is unclear. Possible stump infection. Also could be pneumonia. Broad spectrum antibiotics. Vancomycin should be dosed after each dialysis. (6) CAD (coronary artery disease) Code(s): I25.10 - Atherosclerotic heart disease of [place] coronary artery without angina pectoris Status: Chronic (7) PAD (peripheral artery disease) Code(s): I73.9 - Peripheral vascular disease, unspecified Status: Chronic Plan: s/p left BKA. (8) DM2 (diabetes mellitus, type 2) Code(s): E11.9 - Type 2 diabetes mellitus without complications Status: Chronic Plan: maintain blood glucose between 140 and 180 while hospitalized. - Attending Attestation Thanks for the consult. Poor prognosis.
[2018-09-06] MEDS ORDERED: Vancomycin Inj 1 GM/200 ML PIGGYBACK IV.SIG PRN (15:03)
[2018-09-06] MEDS: Heparin - SQ 10,000 UNITS/ML Vial SQ SCH (19:13)
[2018-09-06] MEDS: Piperacil/Tazo 2.25 GM Premix 50 ML IV.SIG SCH (20:56)
[2018-09-06] MEDS: Famotidine PF Inj 20 MG/2 ML Vial IV.PUSH SCH (20:57)
[2018-09-06] MEDS: Senna/Docusate Sodium 8.6/50 MG Tablet PO SCH (20:59)
[2018-09-06] MEDS ORDERED: Famotidine PF Inj 20 MG/2 ML Vial IV.PUSH SCH (21:00)
[2018-09-07] MEDS: Chlorhexidine Gluconate 2% 1 Pack (2 Cloths) TOPICAL SCH (04:00)
[2018-09-07] MEDS ORDERED: Chlorhexidine Gluconate 2% 1 Pack (2 Cloths) TOPICAL PRN (04:00)
[2018-09-07] MEDS: Piperacil/Tazo 2.25 GM Premix 50 ML IV.SIG SCH ×2 (04:00→14:00)
--- NOTE | 2018-09-07 04:42 | XR ---
EXAM DATE: 09/07/2018 6:00 AM EDT AGE/SEX: 58 years / Female INDICATIONS: Short of breath. CLINICAL DATA: This is the patient's subsequent encounter. Patient reports that signs and symptoms h ave been present for 1 week and indicates a pain score of 0/10. MEDICAL/SURGICAL HISTORY: Diabetes. Hypertension. Renal failure, chronic. . AV shunt left arm , left leg amputation COMPARISON: C, CHEST 1V SINGLE AP, 09/06/2018. . FINDINGS: The cardiac silhouette is enlarged in transverse diameter. There are findings of congestive heart [place] with interstitial and alveolar opacity bilaterally. There has been no significant change when c ompared to the prior exam. No pleural effusions are identified. CONCLUSION: Cardiomegaly and findings of congestive heart failure. There has been no significant change when com pared to the prior exam. Electronically signed by: Joseph Urias MD 09/07/2018 4:41 AM EDT
[2018-09-07] MEDS: Heparin - SQ 10,000 UNITS/ML Vial SQ SCH ×2 (05:19→18:00)
[2018-09-07 06:23] LABS: Alanine Aminotransferase 30 U/L (10-53); Anion Gap 16 meq/L (5-15); Aspartate Aminotransferase 63 U/L (15-37); Blood Urea Nitrogen 47 mg/dL (7-18); Calcium 8.8 mg/dL (8.5-10.1); Carbon Dioxide 23.6 meq/L (21.0-32.0); Chloride 98 meq/L (98-107); Glomerular Filtration Rate 8 mL/min (>89); Glucose,Random 152 mg/dL (74-106); Potassium 5.3 meq/L (3.5-5.1); Sodium 138 meq/L (136-145)
[2018-09-07 06:39] LABS: Alkaline Phosphatase 443 U/L (45-117); Total Protein 7.6 g/dL (6.4-8.2)
[2018-09-07 06:45] LABS: Hematocrit 48.3 % (35.0-46.0); Hemoglobin 15.4 gm/dL (11.6-15.3); Mean Corpuscular HGB Conc 31.9 % (32.0-36.0); Mean Corpuscular Hemoglobin 26.9 pg (27.0-34.0); Mean Corpuscular Volume 84.2 fL (80.0-100.0); Mean Platelet Volume 10.1 fL (7.0-11.0); Platelet Count 92 th/mm3 (150-450); Red Blood Count 5.73 mil/mm3 (4.00-5.30); Red Cell Distribution Width 19.7 % (11.6-17.2); White Blood Count 22.6 th/mm3 (4.0-11.0)
[2018-09-07 08:24] LABS: Lymphocytes 1 % (9-44)
[2018-09-07 08:25] LABS: Target Cells 1+; Toxic Vacuolation Present
[2018-09-07 08:26] LABS: Acanthocytes Occ; Ovalocytes 1+
[2018-09-07] MEDS ORDERED: Haloperidol Inj 5 MG/ML Ampul IV.PUSH ONE (08:45)
[2018-09-07] MEDS: Famotidine PF Inj 20 MG/2 ML Vial IV.PUSH SCH ×2 (08:52→20:01)
[2018-09-07] MEDS: Senna/Docusate Sodium 8.6/50 MG Tablet PO SCH ×2 (08:52→20:02)
--- NOTE | 2018-09-07 10:01 | P.PNCC ---
Subjective Subjective Remarks/Hospital Course: No history is obtainable from the patient due to altered mental status. All history obtained from chart review and discussion with ED attending. Patient is a 58-year-old -[place] Citizen female with past medical history of type 2 diabetes, hypertension, hyperlipidemia, ESRD on HD M/W/F, CHF Echo 03/22/07 EF 30 -35%, CAD, s/p LAD stent 06/08, status post left BKA. Patient was brought to the emergency department by EMS for altered mental status. Apparently patient was found lying on the floor between 2 dressers, missed two dialysis appointments. CT of the head was negative for acute findings chest x-ray showed pulmonary vascular congestion, left lower lobe atelectasis. CT abdomen pelvis showed large 6.2 cm renal mass which has grown in size since last scan in Nov 2017, and suspicious for renal cell carcinoma. Her WBC count was 23.4 with left shift, with altered mental status this was most likely secondary to severe sepsis. Patient was empirically given vancomycin and Zosyn in the ED after getting blood cultures. Also her potassium was 6.3 patient is receiving bicarb now and nephrology had been contacted for stat dialysis I evaluated the patient in the emergency department. Patient is very lethargic encephalopathic. She mumbles a few words but did not follow commands. Even though very lethargic at this point she is protecting airway. In addition to IV bicarb I will also give 5 units of insulin and IV dextrose. Antibiotics will be continued-renally dosed vancomycin and Zosyn. Will request nephrology and urology consult. At this time critically ill with severe sepsis. SUBJ 09/07: Patient is lying in bed mental status seems to be improved alert oriented x2 today. Potassium is 5.3 chest x-ray shows pulmonary edema. Will request for repeat hemodialysis today Objective Vital Signs / I&O: Vital Signs 09/06/18 11:08 09/06/18 12:20 09/06/18 14:53 Temperature 97.6 F Pulse Rate 81 88 87 Respiratory Rate 20 20 16 Blood Pressure 145/74 H Pulse Oximetry 100 09/06/18 20:00 09/06/18 20:26 09/07/18 04:26 Temperature Pulse Rate 92 H 93 H 92 H Respiratory Rate 16 18 Blood Pressure Pulse Oximetry 100 100 09/07/18 07:55 09/07/18 08:00 09/07/18 08:37 Temperature Pulse Rate 95 H Respiratory Rate 16 Blood Pressure Pulse Oximetry 100 100 Intake & Output 09/06/18 09/07/18 09/07/18 18:59 06:59 18:59 Intake Total 350 / 350 100 / 100 Output Total 0 / 0 Balance 350 / 350 100 / 100 Weight 49.895 kg 51 kg Intake: IV 350 / 350 100 / 100 Zosyn 2.25 GM Premix 50 ML @ 100 / 100 100 mls/hr IV.SIG Q8H RAFAEL Rx#: [id number] Zosyn 4.5 GM Premix 4.5 gm In 100 / 100 100 ml @ 200 mls/hr IV.SIG STAT STA Rx#:[id number] Vancomycin Inj 1,000 MG In NS 250 / 250 Inj 250 ML @ 250 mls/hr IV.SIG STAT STA Rx#:[id number] Oral 0 / 0 Output: Urine 0 / 0 Other: Date of Last Bowel Movement 09/06/18 09/06/18 09/06/18 Result Diagrams: 09/07/18 04:01 09/07/18 04:01 Objective Remarks: GENERAL: 58-year-old AA female, lying in bed more awake today SKIN: Warm and dry. HEAD: Atraumatic. Normocephalic. EYES: Pupils equal and round, 2 mm reactive. No scleral icterus. ENT: No nasal bleeding or discharge. Mucous membranes dry. NECK: Trachea midline. No JVD. CARDIOVASCULAR: RRR. S1, S2 no S4. 2/6 pansystolic murmur RESPIRATORY: Clear to auscultation. No wheezes rales or rhonchi. Diminished air entry at the bases GASTROINTESTINAL: Abdomen soft, non-tender, nondistended. MUSCULOSKELETAL: AV fistula in left upper arm with palpable thrill. s/p L BKA NEUROLOGICAL: Patient is awake alert oriented to person and place. Moves extremities including left BKA stump. No focal deficits Assessment and Plan - Problem List (1) Toxic metabolic encephalopathy Code(s): G92 - Toxic encephalopathy Status: Acute (2) Severe sepsis Code(s): A41.9 - Sepsis, unspecified organism; R65.20 - Severe sepsis without septic shock Status: Acute (3) Altered mental status Code(s): R41.82 - Altered mental status, unspecified Status: Acute (4) Hyperkalemia Code(s): E87.5 - Hyperkalemia Status: Acute (5) ESRD (end stage renal disease) Code(s): N18.6 - End stage renal disease Status: Chronic (6) CAD (coronary artery disease) Code(s): I25.10 - Atherosclerotic heart disease of [place] coronary artery without angina pectoris Status: Chronic (7) PAD (peripheral artery disease) Code(s): I73.9 - Peripheral vascular disease, unspecified Status: Chronic (8) DM2 (diabetes mellitus, type 2) Code(s): E11.9 - Type 2 diabetes mellitus without complications Status: Chronic (9) Hypertension Code(s): I10 - Essential (primary) hypertension Status: Chronic (10) Ischemic cardiomyopathy Code(s): I25.5 - Ischemic cardiomyopathy Status: Chronic - Assessment and Plan Plan: Assessment and Plan NEURO: Toxic metabolic encephalopathy History of peripheral neuropathy History of glaucoma Avoid any sedating medication CT head negative for acute findings Encephalopathy most likely from metabolic causes/sepsis. RESP: Respiratory insufficiency Pulmonary edema DuoNeb every 6 hours scheduled and as needed Incentive spirometry every hour awake Improving mentation, protecting airway CV: Coronary artery disease with prior stents (LAD stent 06/08) Chronic systolic heart failure ejection fraction 30-35% 2016 Severe TR s/p L BKA s/p R iliofemoral bypass and R fem-pop bypass by Dr. Ramirez 11/26/17 Peripheral arterial disease Hypertension, dyslipidemia Unable to obtain home medications at this time due to altered mental status Place on baby aspirin PRN IV labetalol for hypertension if needed GI: N.p.o., IV famotidine Start renal diet FEN/RENAL: Hyperkalemia ESRD Large right renal mass suspicious for renal cell carcinoma Status post IV insulin with dextrose and, IV bicarb Status post emergency dialysis yesterday, plan for hemodialysis again today deferred to nephrology Hemodialysis Thursday/Thursday/Thursday per nephrology, Dr Ahumada. Urology consulted for right renal mass (previously refused work up) ID: Severe sepsis Source of sepsis is unclear at this time, possibly HD access Received vancomycin and Zosyn in the ED, continue both renally dosed Follow-up on blood culture Consult ID HEME: Anemia of chronic disease No indication for blood transfusion at this time ENDO: Diabetes mellitus, type II Low-dose insulin sliding scale q6h PROPH: Heparin 5000 subcutaneous to 12 for DVT prophylaxis-resumed. IV famotidine for stress ulcer prophylaxis. ACCESS: PIV providing adequate access at this time. Level 3 Critically ill with sepsis and encephalopathy but stabilizing. Consult hospitalist to assume care 09/08/2018 Code Status: Full
--- NOTE | 2018-09-07 12:30 | P.PNNP ---
Subjective Interval history: patient remains poorly responsive. Mumbles a few words, but hard to understand. Had dialysis yesterday. Hyperkalemia is better, but serum potassium is still high today at 5.3 Physical Exam Vital signs: Vital Signs 09/06/18 14:53 09/06/18 20:00 09/06/18 20:26 Pulse Rate 87 92 H 93 H Respiratory Rate 16 16 Pulse Oximetry 100 100 09/07/18 04:26 09/07/18 07:55 09/07/18 08:00 Pulse Rate 92 H Respiratory Rate 18 Pulse Oximetry 100 100 09/07/18 08:37 Pulse Rate 95 H Respiratory Rate 16 Pulse Oximetry Intake & Output 09/06/18 09/07/18 09/07/18 18:59 06:59 18:59 Intake Total 350 / 350 100 / 100 Output Total 0 / 0 Balance 350 / 350 100 / 100 Weight 49.895 kg 51 kg Intake: IV 350 / 350 100 / 100 Zosyn 2.25 GM Premix 50 ML @ 100 / 100 100 mls/hr IV.SIG Q8H RAFA[facility] Rx#: [id number] Zosyn 4.5 GM Premix 4.5 gm In 100 / 100 100 ml @ 200 mls/hr IV.SIG STAT STA Rx#:[id number] Vancomycin Inj 1,000 MG In NS 250 / 250 Inj 250 ML @ 250 mls/hr IV.SIG STAT STA Rx#:[id number] Oral 0 / 0 Output: Urine 0 / 0 Other: Date of Last Bowel Movement 09/06/18 09/06/18 09/06/18 Narrative: GENERAL: 58-year-old AA female, lying in bed very lethargic mumbling few words SKIN: Warm and dry. HEAD: Atraumatic. Normocephalic. EYES: Pupils equal and round, 2 mm reactive. No scleral icterus. ENT: No nasal bleeding or discharge. Mucous membranes dry. NECK: Trachea midline. No JVD. CARDIOVASCULAR: RRR. S1, S2 no S4. 2/6 systolic murmur. RESPIRATORY: Clear to auscultation. No wheezes rales or rhonchi GASTROINTESTINAL: Abdomen soft, non-tender, nondistended. MUSCULOSKELETAL: AV fistula in left upper arm with palpable thrill. s/p L BKA NEUROLOGICAL: Patient is lethargic encephalopathic. Assessment and Plan - Assessment (1) ESRD (end stage renal disease) Code(s): N18.6 - End stage renal disease Status: Chronic Plan: Dialysis again today for 2 hours, 2K, 2 liters UF goal. Dialysis will be again tomorrow. Monitor fluid and electrolytes. She has patent AVF in the left arm. (2) Hyperkalemia Code(s): E87.5 - Hyperkalemia Status: Acute Plan: Improved, dialysis again today. Monitor. Should be on low potassium diet. If NPO, she should be on D10NS. (3) Altered mental status Code(s): R41.82 - Altered mental status, unspecified Status: Acute Plan: multifactorial. Could be due to uremia, but also could be due to sepsis. Supportive care. Monitor. (4) Renal mass Code(s): N28.89 - Other specified disorders of kidney and ureter Status: Acute Plan: Renal mass has grown in size, most likely malignancy. Consider urology evaluation. (5) Severe sepsis Code(s): A41.9 - Sepsis, unspecified organism; R65.20 - Severe sepsis without septic shock Status: Acute Plan: Source is unclear. Possible stump infection. Also could be pneumonia. Broad spectrum antibiotics. Vancomycin should be dosed after each dialysis. (6) CAD (coronary artery disease) Code(s): I25.10 - Atherosclerotic heart disease of [place] coronary artery without angina pectoris Status: Chronic (7) PAD (peripheral artery disease) Code(s): I73.9 - Peripheral vascular disease, unspecified Status: Chronic Plan: s/p left BKA. (8) DM2 (diabetes mellitus, type 2) Code(s): E11.9 - Type 2 diabetes mellitus without complications Status: Chronic Plan: maintain blood glucose between 140 and 180 while hospitalized.
--- NOTE | 2018-09-07 13:08 | P.CONURO ---
History of Present Illness Service: Consult date: 09/07/18 Requesting Physician: Caty Salazar Reason for Consult: Right renal mass Primary Care Provider: No Primary Care Physician Chief Complaint: AMS History of Present Illness: 58-year-old female with history chronic kidney disease and diabetes mellitus who was admitted with altered mental status. Patient also has a history of a solid right renal mass suspicious for malignancy and was last evaluated by my associate Dr. Perera back in August 2017 whereby a right radical nephrectomy was recommended after cardiac clearance was obtained. During present hospitalization, a repeat CT scan of the abdomen and pelvis was performed that demonstrated the right renal mass to be slowly increasing in size in comparison to the prior CT scan. Currently the mass measures approximate 6.2 cm and arises from the right upper pole. Also noted was a 1.2 cm left lower pole renal cyst. Both kidneys were noted to be atrophic. I was unable to elicit any additional history from the patient due to her altered mental status. Nephrology is seeing the patient and patient is being managed with hemodialysis presently. Review of Systems unobtainable due to mental condition PMFSH - History History Provided By: Patient - Medical / Surgical Hx Neg / Unobtainable Medical Problems Denied: Unable to Obtain - Medical History Medical History: Medical History (Last Reviewed 09/06/18 @ 13:19 by Briana Fregoso MD) Diabetes Dialysis patient Gangrene - Tobacco History Second Hand Smoke Exposure: No Smoking Status: Unknown if ever smoked - Alcohol History How Often Do You Have a Drink Containing Alcohol: Unable to Obtain - Substance Use History Substance History: Unable to Obtain - Travel History Recent Travel in the [place] Within the Last 8 Weeks: No Recent Travel Out of the Country Within the Last 8 Weeks: No - Immunization History Tetanus Immunization: Unable to Assess Medications and Allergies Active Medications: Active Medications Acetaminophen (Tylenol) 650 mg PO Q6H PRN PRN Reason: PAIN 1-10 AND/OR FEVER >101F Acetaminophen (Tylenol) 650 mg PO UNSCH PRN PRN Reason: SEE LABEL COMMENTS Al Hydroxide/Mg Hydroxide (Milk Of Nathalie Etienne) 30 ml PO Q12H PRN PRN Reason: Mild Constipation Albuterol (Albuterol Neb (Prn)) 2.5 mg NEB Q2HR NEB PRN PRN Reason: SHORTNESS OF BREATH/WHEEZING Albuterol (Duoneb Neb (Diamond)) 1 ampul NEB Q6HR NEB [facility] Last Admin: 10/16/18 08:34 Dose: 1 ampul Bisacodyl (Dulcolax Supp) 10 mg RECTAL DAILY PRN PRN Reason: SEVERE CONSITIPATION Chlorhexidine Gluconate (Chlorhexidine 2% Cloth) 3 pack TOPICAL DAILY@0400 [facility] Stop: 09/12/18 03:59 Last Admin: 09/07/18 04:00 Dose: 3 pack Chlorhexidine Gluconate (Chlorhexidine 2% Cloth) 3 pack TOPICAL DAILY@0400 PRN PRN Reason: Extra cloth needed Stop: 09/12/18 03:59 Clonidine HCl (Catapres) 0.1 mg PO UNSCH PRN PRN Reason: SEE LABEL COMMENTS Diphenhydramine HCl (Benadryl) 25 mg PO UNSCH PRN PRN Reason: SEE LABEL COMMENTS Famotidine (Pepcid Pf Inj) 10 mg IV.PUSH Q12HR [facility] Last Admin: 09/07/18 08:52 Dose: 10 mg Gelatin (Gelfoam 12 Mm/7 Mm Topical) 1 foam TOPICAL PRN PRN PRN Reason: help stop bleeding from site Last Admin: 09/06/18 15:02 Dose: 1 foam Gentamicin Sulfate (Gentamicin Inj) 20 mg OTHER WITH DIALYSIS PRN PRN Reason: Dwell Gentamycin Lock Heparin Sodium (Porcine) (Heparin Inj) 1,000 units OTHER WITH DIALYSIS PRN PRN Reason: Dwell Heparin to Fill Catheter Heparin Sodium (Porcine) (Heparin Inj) 5,000 units SQ Q12H [facility] Last Admin: 09/07/18 05:19 Dose: 5,000 units Heparin Sodium (Porcine) (Heparin Inj) 8,000 units OTHER WITH DIALYSIS PRN PRN Reason: for machine prime Albumin Human (Flexbumin 25% Inj) 100 mls @ 60 mls/hr IV.SIG WITH DIALYSIS PRN PRN Reason: hypotension / volume replace Sodium Chloride (Ns Inj) 1,000 mls @ 0 mls/hr OTHER .Q0M PRN PRN Reason: for prime and rinse back Last Infusion: 09/06/18 19:00 Dose: 0 mls/hr Sodium Chloride (Ns Inj) 1,000 mls @ 200 mls/hr OTHER .Q5H PRN PRN Reason: for dialyzer flush PRN Sodium Chloride (Ns Inj) 1,000 mls @ 0 mls/hr IV.CONT .Q0M PRN PRN Reason: hypotension / volume replace Piperacillin/Tazobactam/Dextrose (Zosyn 2.25 Gm Premix) 50 mls @ 100 mls/hr IV.SIG Q8H [facility] Last Infusion: 09/07/18 04:30 Dose: Infused Vancomycin HCl 1,000 mg/ (Sodium Chloride) 250 mls @ 250 mls/hr IV.SIG WITH DIALYSIS [facility] Lactulose (Lactulose Liq) 30 ml PO DAILY PRN PRN Reason: SEVERE CONSITIPATION Mannitol (Mannitol Inj) 12.5 gm IV.PUSH UNSCH PRN PRN Reason: hypotension / volume replace Nitroglycerin (Nitrostat Sl) 0.4 mg SL Q5M PRN PRN Reason: CHEST PAIN Ondansetron HCl (Zofran Inj) 4 mg IV.PUSH UNSCH PRN PRN Reason: NAUSEA OR VOMITING Senna/Docusate Sodium (Elsy-Colace) 1 tab PO BID [facility] Last Admin: 09/07/18 08:52 Dose: Not Given Sennosides (Senokot) 17.2 mg PO Q12H PRN PRN Reason: Moderate Constipation Sodium Chloride (Ns Flush) 5 ml IV.FLUSH PRN PRN PRN Reason: flush each lumen during HD Sodium Chloride (Ns Flush) 2 ml IV.FLUSH BID [facility] Last Admin: 09/07/18 08:52 Dose: 2 ml Sodium Chloride (Ns Flush) 2 ml IV.FLUSH PRN PRN PRN Reason: FLUSH AFTER USING IV ACCESS Allergies Allergy/AdvReac Type Severity Reaction Status Date / Time latex Allergy Severe Edema Unverified 09/06/18 11:19 Home Medications Medication Instructions Recorded Confirmed Type Unable to Obtain Home Meds 09/06/18 09/06/18 History Physical Exam Vital Signs - 24 hr 09/06/18 14:53 09/06/18 20:00 09/06/18 20:26 Pulse Rate 87 92 H 93 H Respiratory Rate 16 16 Pulse Oximetry 100 100 09/07/18 04:26 09/07/18 07:55 09/07/18 08:00 Pulse Rate 92 H Respiratory Rate 18 Pulse Oximetry 100 100 09/07/18 08:37 Pulse Rate 95 H Respiratory Rate 16 Pulse Oximetry Physical Exam: GENERAL: Appears stated age SKIN: No rashes, ecchymoses or lesions. Cool and dry. HEAD: Atraumatic. Normocephalic. No temporal or scalp tenderness. EYES: Pupils equal round and reactive. Extraocular motions intact. No scleral icterus. No injection or drainage. ENT: Nose without bleeding, purulent drainage or septal hematoma. Throat without erythema, tonsillar hypertrophy or exudate. Uvula midline. Airway patent. NECK: Trachea midline. No JVD or lymphadenopathy. Supple, nontender, no meningeal signs. GASTROINTESTINAL: Abdomen soft, non-tender, nondistended. No hepato-splenomegaly , or palpable masses. No guarding. GENITOURINARY: Bladder not distended. MUSCULOSKELETAL: Consistent with left BKA NEUROLOGICAL: Noncoherent. Laboratory Results - last 24 hr 09/06/18 09/06/18 09/06/18 13:40 13:45 19:26 WBC RBC Hgb Hct MCV MCH MCHC RDW Plt Count MPV Prelim Diff (Auto) WBC Differential Seg Neuts % (Manual) Band Neuts % (Manual) Lymphocytes % (Manual) Abs Neuts (Manual) Differential Comment Toxic Vacuolation Platelet Estimate Platelet Morphology Target Cells Ovalocytes Acanthocytes (Spur) Sodium Potassium 5.2 H D Chloride Carbon Dioxide Anion Gap BUN Creatinine Estimated GFR POC Glucose 197 H Random Glucose Calcium Total Bilirubin AST ALT Alkaline Phosphatase Total Protein Albumin Nasal Screen MRSA (PCR) Not detected 09/07/18 09/07/18 09/07/18 00:04 04:01 04:01 WBC 22.6 H RBC 5.73 H Hgb 15.4 H Hct 48.3 H MCV 84.2 MCH 26.9 L MCHC 31.9 L RDW 19.7 H Plt Count 92 L MPV 10.1 Prelim Diff (Auto) Manual diff required WBC Differential Manual diff final Seg Neuts % (Manual) 98 H Band Neuts % (Manual) 1 Lymphocytes % (Manual) 1 L Abs Neuts (Manual) 22.4 H Differential Comment . Toxic Vacuolation Present H Platelet Estimate Low L Platelet Morphology Enlarged H Target Cells 1+ H Ovalocytes 1+ H Acanthocytes (Spur) Occ H Sodium 138 Potassium 5.2 H 5.3 H Chloride 98 Carbon Dioxide 23.6 Anion Gap 16 H BUN 47 H Creatinine 6.24 H Estimated GFR 8 L POC Glucose Random Glucose 152 H Calcium 8.8 Total Bilirubin 1.1 H AST 63 H ALT 30 Alkaline Phosphatase 443 H Total Protein 7.6 Albumin 2.0 L Nasal Screen MRSA (PCR) Microbiology 09/06/18 11:20 Aerobic Blood Culture - Preliminary Blood - Peripheral S. aureus MRSA Anaerobic Blood Culture - Preliminary gram positive cocci 09/06/18 11:28 Aerobic Blood Culture - Preliminary Blood - Peripheral No growth in 1 day Anaerobic Blood Culture - Preliminary No growth in 1 day Result Diagrams: 09/07/18 04:01 09/07/18 04:01 Imaging: ITS Impressions Abdomen/Pelvis CT 09/06/18 11:10 CONCLUSION: 1. Moderate stool in the rectum. No dilated loops of bowel to suggest obstruction. 2. Persistent large solid mass arising from the superior pole the right kidney measuring up to 6.2 cm. This is a renal cell carcinoma until proven otherwise. 3. End-stage appearing kidneys bilaterally. 4. Prominent diffuse vascular calcifications. Head CT 09/06/18 11:10 CONCLUSION: 1. Atrophy and atherosclerosis. . Chest X-Ray 09/07/18 06:00 CONCLUSION: Cardiomegaly and findings of congestive heart failure. There has been no significant change when compared to the prior exam. Assessment and Plan - Assessment (1) Renal mass, right Code(s): N28.89 - Other specified disorders of kidney and ureter Status: Acute - Plan Urologic impression: 1. Slowly enlarging solid right upper pole renal mass suspicious for malignancy 2. Chronic kidney disease on hemodialysis Recommendations: 1. No acute intervention indicated at the present time 2. Patient should follow-up with Dr. Ming Preera after hospital discharge and when overall medical condition improved to proceed with scheduling a right radical nephrectomy on a nonemergent basis.
--- NOTE | 2018-09-07 13:26 | P.CONID ---
History of Present Illness Service: ID Consult date: 09/07/18 Requesting Physician: Caty Salazar Reason for Consult: gram positive bacteremia Primary Care Provider: No Primary Care Physician Chief Complaint: AMS History of Present Illness: Pt is unable to provide history 2/2 her mental status HIstory was obtained from the chart and thru other providers: Dr Salazar, RN Pt is a 58-year-old female with multiple med problems including ESRD/on HD, DM , PVD and recent LLE BKA, CHF Echo 03/22/07 EF 30-35%, CAD, s/p LAD stent 06/08 sp RLE bypass in Feb 2018 She apparently missed 2 HD treatment s and was brought in ydat for altered mental status She was found lying on the floor @ home. CT of the head was negative for acute findings Chest x-ray showed pulmonary vascular congestion, left lower lobe atelectasis. Pt is anuric CT abdomen pelvis showed large 6.2 cm renal mass which has grown in size since last scan in Nov 2017, and suspicious for renal cell carcinoma. Her WBC count was 23.4 with left shift, Severe sepsis was suspected Patient was empirically given vancomycin and Zosyn in the ED after getting blood cultures her blood cultures today are 4/4 positive for gram + cocci Patient remains very lethargic encephalopathic. Pt is continued on renally dosed vancomycin and Zosyn. Urologist saw the pt and recommended follow-up with Dr. Ming Perera after hospital discharge and when overall medical condition improved to proceed with scheduling a right radical nephrectomy on a nonemergent basis. Review of Systems unobtainable due to mental status PMFSH - History History Provided By: Patient - Medical / Surgical Hx Neg / Unobtainable Medical Problems Denied: Unable to Obtain - Medical History Medical History: Medical History (Last Updated 09/07/18 @ 13:59 by Laura Dowd MD) A-V fistula Diabetes Dialysis patient Gangrene - Surgical History Surgical History: Surgical History (Last Reviewed 09/07/18 @ 14:28 by Laura Dowd MD) Below knee amputation status - Family History Family History: Family History (Last Updated 09/07/18 @ 13:58 by Laura Dowd MD) Other Family history unobtainable - Social History I have reviewed the patient's Social History: Yes - Tobacco History Second Hand Smoke Exposure: No Smoking Status: Unknown if ever smoked - Alcohol History How Often Do You Have a Drink Containing Alcohol: Unable to Obtain - Substance Use History Substance History: Unable to Obtain - Travel History Recent Travel in the [place] Within the Last 8 Weeks: No Recent Travel Out of the Country Within the Last 8 Weeks: No - Immunization History Tetanus Immunization: Unable to Assess Medications and Allergies Active Medications: Active Medications Acetaminophen (Tylenol) 650 mg PO Q6H PRN PRN Reason: PAIN 1-10 AND/OR FEVER >101F Acetaminophen (Tylenol) 650 mg PO UNSCH PRN PRN Reason: SEE LABEL COMMENTS Al Hydroxide/Mg Hydroxide (Milk Of Nathalie Etienne) 30 ml PO Q12H PRN PRN Reason: Mild Constipation Albuterol (Albuterol Neb (Prn)) 2.5 mg NEB Q2HR NEB PRN PRN Reason: SHORTNESS OF BREATH/WHEEZING Albuterol (Duoneb Neb (Diamond)) 1 ampul NEB Q6HR NEB [facility] Last Admin: 09/07/18 08:34 Dose: 1 ampul Bisacodyl (Dulcolax Supp) 10 mg RECTAL DAILY PRN PRN Reason: SEVERE CONSITIPATION Chlorhexidine Gluconate (Chlorhexidine 2% Cloth) 3 pack TOPICAL DAILY@0400 DI[facility] Stop: 09/12/18 03:59 Last Admin: 09/07/18 04:00 Dose: 3 pack Chlorhexidine Gluconate (Chlorhexidine 2% Cloth) 3 pack TOPICAL DAILY@0400 PRN PRN Reason: Extra cloth needed Stop: 09/12/18 03:59 Clonidine HCl (Catapres) 0.1 mg PO UNSCH PRN PRN Reason: SEE LABEL COMMENTS Diphenhydramine HCl (Benadryl) 25 mg PO UNSCH PRN PRN Reason: SEE LABEL COMMENTS Famotidine (Pepcid Pf Inj) 10 mg IV.PUSH Q12HR [facility] Last Admin: 09/07/18 08:52 Dose: 10 mg Gelatin (Gelfoam 12 Mm/7 Mm Topical) 1 foam TOPICAL PRN PRN PRN Reason: help stop bleeding from site Last Admin: 09/06/18 15:02 Dose: 1 foam Gentamicin Sulfate (Gentamicin Inj) 20 mg OTHER WITH DIALYSIS PRN PRN Reason: Dwell Gentamycin Lock Heparin Sodium (Porcine) (Heparin Inj) 1,000 units OTHER WITH DIALYSIS PRN PRN Reason: Dwell Heparin to Fill Catheter Heparin Sodium (Porcine) (Heparin Inj) 5,000 units SQ Q12H [facility] Last Admin: 09/07/18 05:19 Dose: 5,000 units Heparin Sodium (Porcine) (Heparin Inj) 8,000 units OTHER WITH DIALYSIS PRN PRN Reason: for machine prime Albumin Human (Flexbumin 25% Inj) 100 mls @ 60 mls/hr IV.SIG WITH DIALYSIS PRN PRN Reason: hypotension / volume replace Sodium Chloride (Ns Inj) 1,000 mls @ 0 mls/hr OTHER .Q0M PRN PRN Reason: for prime and rinse back Last Infusion: 09/06/18 19:00 Dose: 0 mls/hr Sodium Chloride (Ns Inj) 1,000 mls @ 200 mls/hr OTHER .Q5H PRN PRN Reason: for dialyzer flush PRN Sodium Chloride (Ns Inj) 1,000 mls @ 0 mls/hr IV.CONT .Q0M PRN PRN Reason: hypotension / volume replace Piperacillin/Tazobactam/Dextrose (Zosyn 2.25 Gm Premix) 50 mls @ 100 mls/hr IV.SIG Q8H [facility] Last Infusion: 09/07/18 04:30 Dose: Infused Vancomycin HCl 1,000 mg/ (Sodium Chloride) 250 mls @ 250 mls/hr IV.SIG WITH DIALYSIS [facility] Lactulose (Lactulose Liq) 30 ml PO DAILY PRN PRN Reason: SEVERE CONSITIPATION Mannitol (Mannitol Inj) 12.5 gm IV.PUSH UNSCH PRN PRN Reason: hypotension / volume replace Nitroglycerin (Nitrostat Sl) 0.4 mg SL Q5M PRN PRN Reason: CHEST PAIN Ondansetron HCl (Zofran Inj) 4 mg IV.PUSH UNSCH PRN PRN Reason: NAUSEA OR VOMITING Senna/Docusate Sodium (Elsy-Colace) 1 tab PO BID [facility] Last Admin: 09/07/18 08:52 Dose: Not Given Sennosides (Senokot) 17.2 mg PO Q12H PRN PRN Reason: Moderate Constipation Sodium Chloride (Ns Flush) 5 ml IV.FLUSH PRN PRN PRN Reason: flush each lumen during HD Sodium Chloride (Ns Flush) 2 ml IV.FLUSH BID [facility] Last Admin: 09/07/18 08:52 Dose: 2 ml Sodium Chloride (Ns Flush) 2 ml IV.FLUSH PRN PRN PRN Reason: FLUSH AFTER USING IV ACCESS Allergies Allergy/AdvReac Type Severity Reaction Status Date / Time latex Allergy Severe Edema Unverified 09/06/18 11:19 Home Medications Medication Instructions Recorded Confirmed Type Unable to Obtain Home Meds 09/06/18 09/06/18 History Exam Vital signs: Vital Signs 09/06/18 14:53 09/06/18 20:00 09/06/18 20:26 Pulse Rate 87 92 H 93 H Respiratory Rate 16 16 Pulse Oximetry 100 100 09/07/18 04:26 09/07/18 07:55 09/07/18 08:00 Pulse Rate 92 H Respiratory Rate 18 Pulse Oximetry 100 100 09/07/18 08:37 Pulse Rate 95 H Respiratory Rate 16 Pulse Oximetry Intake & Output 09/06/18 09/07/18 09/07/18 18:59 06:59 18:59 Intake Total 350 / 350 100 / 100 Output Total 0 / 0 Balance 350 / 350 100 / 100 Weight 49.895 kg 51 kg Intake: IV 350 / 350 100 / 100 Zosyn 2.25 GM Premix 50 ML @ 100 / 100 100 mls/hr IV.SIG Q8H [facility] Rx#: [id number] Zosyn 4.5 GM Premix 4.5 gm In 100 / 100 100 ml @ 200 mls/hr IV.SIG STAT ST[facility] Rx#:[id number] Vancomycin Inj 1,000 MG In NS 250 / 250 Inj 250 ML @ 250 mls/hr IV.SIG STAT [facility] Rx#:[id number] Oral 0 / 0 Output: Urine 0 / 0 Other: Date of Last Bowel Movement 09/06/18 09/06/18 09/06/18 - Constitutional no acute distress, average body habitus, chronically ill appearing - Routine HEENT Exam Head: Present: normocephalic, atraumatic Eye: Present: EOMI, PERRL ENT: Present: mucous membranes dry, oropharynx clear - Routine Neck Exam Present: supple. Absent: JVD - Routine Respiratory Exam Present: CTA bilaterally. Absent: accessory muscle use, decreased breath sounds , rhonchi - Routine Cardiovascular Exam Present: RRR, S1, S2. Absent: murmur, gallop, rubs - Routine Abdominal Exam Present: soft, normoactive bowel sounds. Absent: tenderness, distended, organomegaly, mass - Routine Extremities Exam Present: extremity cold to touch (R foot), amputation (L BKA with miguel in , healing ). Absent: clubbing, edema, tenderness Comments: R foot is cold to touch, dusky, no refill well healed 2nd toe amputation site pedal pulses not pulpbale, barely dopplerable - Routine Skin Exam Present: intact, dry, warm. Absent: cyanosis, rash - Routine Neurological Exam Present: altered mental status (lethargic, arousable), moving all extremities. Absent: normal speech (incoherent ) Results - Labs CBC & Chem 7: 09/07/18 04:01 09/07/18 04:01 Labs: Laboratory Results - last 24 hr 09/06/18 09/06/18 09/06/18 13:40 13:45 19:26 WBC RBC Hgb Hct MCV MCH MCHC RDW Plt Count MPV Prelim Diff (Auto) WBC Differential Seg Neuts % (Manual) Band Neuts % (Manual) Lymphocytes % (Manual) Abs Neuts (Manual) Differential Comment Toxic Vacuolation Platelet Estimate Platelet Morphology Target Cells Ovalocytes Acanthocytes (Spur) Sodium Potassium 5.2 H D Chloride Carbon Dioxide Anion Gap BUN Creatinine Estimated GFR POC Glucose 197 H Random Glucose Calcium Total Bilirubin AST ALT Alkaline Phosphatase Total Protein Albumin Nasal Screen MRSA (PCR) Not detected 09/07/18 09/07/18 09/07/18 00:04 04:01 04:01 WBC 22.6 H RBC 5.73 H Hgb 15.4 H Hct 48.3 H MCV 84.2 MCH 26.9 L MCHC 31.9 L RDW 19.7 H Plt Count 92 L MPV 10.1 Prelim Diff (Auto) Manual diff required WBC Differential Manual diff final Seg Neuts % (Manual) 98 H Band Neuts % (Manual) 1 Lymphocytes % (Manual) 1 L Abs Neuts (Manual) 22.4 H Differential Comment . Toxic Vacuolation Present H Platelet Estimate Low L Platelet Morphology Enlarged H Target Cells 1+ H Ovalocytes 1+ H Acanthocytes (Spur) Occ H Sodium 138 Potassium 5.2 H 5.3 H Chloride 98 Carbon Dioxide 23.6 Anion Gap 16 H BUN 47 H Creatinine 6.24 H Estimated GFR 8 L POC Glucose Random Glucose 152 H Calcium 8.8 Total Bilirubin 1.1 H AST 63 H ALT 30 Alkaline Phosphatase 443 H Total Protein 7.6 Albumin 2.0 L Nasal Screen MRSA (PCR) - Imaging Impressions Chest X-Ray 09/07/18 06:00 CONCLUSION: Cardiomegaly and findings of congestive heart failure. There has been no significant change when compared to the prior exam. Assessment and Plan - Plan Gram positive sepsis AMS HD, non coml;iance came with electrolutes imbalance Ischemic R foot h/o RLE ileofemoral and fem pop bypass in Feb 2018 cont vancomycin w HD dc zosyn 2 D echo repeat BC consult vasc US AV fistula dw Mavis Salazar
[2018-09-07] MEDS: Albumin Human 25% Inj 100 ML IV.SIG PRN ×2 (13:55→14:10)
--- NOTE | 2018-09-07 18:32 | ECHRPT ---
Indication: HEART FAILURE CONCLUSIONS The left ventricular systolic function is severely reduced with an estimated ejection fraction in th e range of 30%. There is global hypokinesis with possible posterior akinesis. Moderately dilated left ventricle. Wall thickness is normal. There is global left ventricular dysfunction. The left atrial size is mildly dilated. Moderate thickening of the mitral valve leaflets. Severe mitral valve regurgitation. Mitral annular calcification is present. Mobile echodensity is noted on the mitral valve consistent with vegetation. Trileaflet aortic valve with marked aortic valve sclerosis. Mild thickening of the tricuspid valve l eaflets. There is moderate to severe tricuspid valve regurgitation. The estimated pulmonary arterial pressure is 59 mmHg. The inferior vena cava was not well visualized. BP: / HR: Rhythm: Sinus Technical Quality:Good FINDINGS LEFT VENTRICLE The left ventricular systolic function is severely reduced with an estimated ejection fraction in th e range of 30%. There is global hypokinesis with possible posterior akinesis. Moderately dilated left ventricle. Wall thickness is normal. There is global left ventricular dysfunction. RIGHT VENTRICLE Normal right ventricular size and systolic function. LEFT ATRIUM The left atrial size is mildly dilated. RIGHT ATRIUM The right atrial size is normal. MITRAL VALVE Moderate thickening of the mitral valve leaflets. Severe mitral valve regurgitation. Mitral annular calcification is present. Mobile echodensity is noted on the mitral valve consistent with vegetation. AORTIC VALVE Trileaflet aortic valve with marked aortic valve sclerosis. TRICUSPID VALVE Mild thickening of the tricuspid valve leaflets. There is moderate to severe tricuspid valve regurgitation. The estimated pulmonary arterial pressure is 59 mmHg. PULMONARY VALVE No pulmonary valve regurgitation or stenosis. VESSELS The inferior vena cava was not well visualized. PERICARDIUM No pericardial effusion. Eamon Lara MD (Electronically Signed) Final Date:07 September 2018 18:31
[2018-09-08] MEDS: Chlorhexidine Gluconate 2% 1 Pack (2 Cloths) TOPICAL SCH (05:15)
[2018-09-08] MEDS: Heparin - SQ 10,000 UNITS/ML Vial SQ SCH ×2 (05:15→19:56)
[2018-09-08 06:10] LABS: Hematocrit 37.9 % (35.0-46.0); Hemoglobin 12.3 gm/dL (11.6-15.3); Mean Corpuscular HGB Conc 32.3 % (32.0-36.0); Mean Corpuscular Hemoglobin 26.7 pg (27.0-34.0); Mean Corpuscular Volume 82.6 fL (80.0-100.0); Mean Platelet Volume 10.2 fL (7.0-11.0); Platelet Count 104 th/mm3 (150-450); Red Blood Count 4.59 mil/mm3 (4.00-5.30); Red Cell Distribution Width 19.8 % (11.6-17.2); White Blood Count 15.4 th/mm3 (4.0-11.0)
[2018-09-08 07:00] LABS: Alanine Aminotransferase 18 U/L (10-53); Albumin 2.5 g/dL (3.4-5.0); Alkaline Phosphatase 275 U/L (45-117); Anion Gap 16 meq/L (5-15); Aspartate Aminotransferase 31 U/L (15-37); Blood Urea Nitrogen 42 mg/dL (7-18); Calcium 9.1 mg/dL (8.5-10.1); Carbon Dioxide 26.4 meq/L (21.0-32.0); Chloride 98 meq/L (98-107); Glomerular Filtration Rate 9 mL/min (>89); Glucose,Random 164 mg/dL (74-106); Potassium 4.3 meq/L (3.5-5.1); Sodium 140 meq/L (136-145)
[2018-09-08] MEDS: Senna/Docusate Sodium 8.6/50 MG Tablet PO SCH ×2 (08:34→21:57)
[2018-09-08] MEDS: Famotidine PF Inj 20 MG/2 ML Vial IV.PUSH SCH ×2 (08:34→21:57)
--- NOTE | 2018-09-08 10:08 | P.PNNP ---
Subjective Interval history: To have HD today. Seen by ID and . Notes were reviewed. Vancomycin to be continued. Physical Exam Vital signs: Vital Signs 09/07/18 15:18 09/07/18 16:30 09/07/18 16:45 Temperature Pulse Rate 101 H 98 H 97 H Respiratory Rate 16 15 15 Blood Pressure 155/72 H Pulse Oximetry 100 100 09/07/18 17:00 09/07/18 17:15 09/07/18 17:30 Temperature Pulse Rate 104 H 105 H 95 H Respiratory Rate 14 21 15 Blood Pressure 131/65 140/68 141/73 H Pulse Oximetry 100 100 100 09/07/18 17:45 09/07/18 18:00 09/07/18 18:15 Temperature Pulse Rate 97 H 96 H 105 H Respiratory Rate 18 15 16 Blood Pressure 148/83 H 149/78 H 161/78 H Pulse Oximetry 100 100 100 09/07/18 18:30 18 18:45 09/07/18 19:00 Temperature Pulse Rate 103 H 100 H 102 H Respiratory Rate 15 13 13 Blood Pressure 159/78 H 160/80 H 162/87 H Pulse Oximetry 100 100 100 09/07/18 19:15 09/07/18 19:30 09/07/18 19:45 Temperature Pulse Rate 111 H 110 H 111 H Respiratory Rate 26 H 22 38 H Blood Pressure 167/89 H 159/82 H 176/111 H Pulse Oximetry 100 100 100 09/07/18 19:47 09/07/18 20:00 09/07/18 20:15 Temperature 99.7 F H Pulse Rate 110 H 113 H 107 H Respiratory Rate 20 23 19 Blood Pressure 166/91 H 179/91 H 165/85 H Pulse Oximetry 100 100 100 09/07/18 20:22 09/07/18 20:23 09/07/18 20:30 Temperature Pulse Rate 101 H 107 H Respiratory Rate 21 17 Blood Pressure 163/82 H Pulse Oximetry 100 100 09/07/18 20:45 09/07/18 21:00 09/07/18 21:02 Temperature Pulse Rate 108 H 104 H 104 H Respiratory Rate 17 16 16 Blood Pressure 147/79 H 141/73 H Pulse Oximetry 100 100 100 09/07/18 22:00 09/07/18 23:00 09/07/18 23:06 Temperature Pulse Rate 109 H 108 H 108 H Respiratory Rate 23 22 48 H Blood Pressure 149/72 H 151/106 H 152/77 H Pulse Oximetry 100 99 100 09/08/18 00:00 09/08/18 01:00 09/08/18 02:00 Temperature Pulse Rate 106 H 102 H 102 H Respiratory Rate 22 19 16 Blood Pressure 154/79 H 151/75 H Pulse Oximetry 100 100 100 09/08/18 02:04 09/08/18 03:00 09/08/18 03:38 Temperature Pulse Rate 108 H 106 H 103 H Respiratory Rate 20 19 21 Blood Pressure 165/91 H 151/76 H Pulse Oximetry 100 100 09/08/18 03:39 09/08/18 04:00 09/08/18 05:00 Temperature Pulse Rate 107 H 109 H Respiratory Rate 21 20 Blood Pressure 146/76 H 161/81 H Pulse Oximetry 100 100 100 09/08/18 06:00 09/08/18 09:06 Temperature Pulse Rate 102 H 97 H Respiratory Rate 17 Blood Pressure 144/72 H Pulse Oximetry 99 100 Intake & Output 09/07/18 09/08/18 09/08/18 18:59 06:59 18:59 Intake Total 250 / 250 Output Total 0 / 0 0 / 0 Balance 250 / 250 0 / 0 Weight 50 kg Intake: IV 250 / 250 Flexbumin 25% Inj 100 ML @ 60 200 / 200 mls/hr IV.SIG WITH DIALYSIS PRN Rx#:[id number] Zosyn 2.25 GM Premix 50 ML @ 50 / 50 100 mls/hr IV.SIG Q8H RAFAEL Rx#: [id number] Output: Urine 0 / 0 0 / 0 Other: Date of Last Bowel Movement 09/06/18 09/06/18 Narrative: GENERAL: 58-year-old AA female, lying in bed very lethargic mumbling few words SKIN: Warm and dry. HEAD: Atraumatic. Normocephalic. EYES: Pupils equal and round, 2 mm reactive. No scleral icterus. ENT: No nasal bleeding or discharge. Mucous membranes dry. NECK: Trachea midline. No JVD. CARDIOVASCULAR: RRR. 2/6 systolic murmur. RESPIRATORY: Clear to auscultation. No wheezes rales or rhonchi GASTROINTESTINAL: Abdomen soft, non-tender, nondistended. MUSCULOSKELETAL: AV fistula in left upper arm with palpable thrill. s/p L BKA NEUROLOGICAL: Patient is lethargic encephalopathic. Assessment and Plan - Assessment (1) ESRD (end stage renal disease) Code(s): N18.6 - End stage renal disease Status: Chronic Plan: Dialysis today, and MWF. Monitor fluid and electrolytes. She has patent AVF in the left arm. (2) Hyperkalemia Code(s): E87.5 - Hyperkalemia Status: Acute Plan: Improved. Monitor. Should be on low potassium diet. If NPO, she should be on D10NS. (3) Altered mental status Code(s): R41.82 - Altered mental status, unspecified Status: Acute Plan: multifactorial. Could be due to uremia, but also could be due to sepsis. Supportive care. Monitor. (4) Renal mass Code(s): N28.89 - Other specified disorders of kidney and ureter Status: Acute Plan: Renal mass has grown in size, most likely malignancy. Urology note reviewed, to follow up after discharge. (5) Severe sepsis Code(s): A41.9 - Sepsis, unspecified organism; R65.20 - Severe sepsis without septic shock Status: Acute Plan: On Vancomycin. Echo and US of AV access recommended. Patient has MRSA (6) CAD (coronary artery disease) Code(s): I25.10 - Atherosclerotic heart disease of [place] coronary artery without angina pectoris Status: Chronic (7) PAD (peripheral artery disease) Code(s): I73.9 - Peripheral vascular disease, unspecified Status: Chronic Plan: s/p left BKA. (8) DM2 (diabetes mellitus, type 2) Code(s): E11.9 - Type 2 diabetes mellitus without complications Status: Chronic Plan: maintain blood glucose between 140 and 180 while hospitalized.
[2018-09-08] MEDS: Vancomycin Inj 1,000 MG in Sodium Chlor 0.9% Inj 250 ML IV.SIG SCH (12:06)
--- NOTE | 2018-09-08 15:27 | P.PNIM ---
Subjective Interval history: 58-year-old female with a history of end-stage renal disease, missed 2 dialysis treatments, found on the floor of home for an uncertain length of time hours, possibly up to 2 days. She is being transferred from critical care to the medicine service. She is alert and oriented x3, but still very weak. Physical Exam Vital signs: Vital Signs 09/07/18 15:18 09/07/18 16:30 09/07/18 16:45 Temperature Pulse Rate 101 H 98 H 97 H Respiratory Rate 16 15 15 Blood Pressure 155/72 H Pulse Oximetry 100 100 09/07/18 17:00 09/07/18 17:15 09/07/18 17:30 Temperature Pulse Rate 104 H 105 H 95 H Respiratory Rate 14 21 15 Blood Pressure 131/65 140/68 141/73 H Pulse Oximetry 100 100 100 09/07/18 17:45 09/07/18 18:00 09/07/18 18:15 Temperature Pulse Rate 97 H 96 H 105 H Respiratory Rate 18 15 16 Blood Pressure 148/83 H 149/78 H 161/78 H Pulse Oximetry 100 100 100 09/07/18 18:30 18 18:45 09/07/18 19:00 Temperature Pulse Rate 103 H 100 H 102 H Respiratory Rate 15 13 13 Blood Pressure 159/78 H 160/80 H 162/87 H Pulse Oximetry 100 100 100 09/07/18 19:15 09/07/18 19:30 09/07/18 19:45 Temperature Pulse Rate 111 H 110 H 111 H Respiratory Rate 26 H 22 38 H Blood Pressure 167/89 H 159/82 H 176/111 H Pulse Oximetry 100 100 100 09/07/18 19:47 09/07/18 20:00 09/07/18 20:15 Temperature 99.7 F H Pulse Rate 110 H 113 H 107 H Respiratory Rate 20 23 19 Blood Pressure 166/91 H 179/91 H 165/85 H Pulse Oximetry 100 100 100 09/07/18 20:22 09/07/18 20:23 09/07/18 20:30 Temperature Pulse Rate 101 H 107 H Respiratory Rate 21 17 Blood Pressure 163/82 H Pulse Oximetry 100 100 09/07/18 20:45 09/07/18 21:00 09/07/18 21:02 Temperature Pulse Rate 108 H 104 H 104 H Respiratory Rate 17 16 16 Blood Pressure 147/79 H 141/73 H Pulse Oximetry 100 100 100 09/07/18 22:00 09/07/18 23:00 09/07/18 23:06 Temperature Pulse Rate 109 H 108 H 108 H Respiratory Rate 23 22 48 H Blood Pressure 149/72 H 151/106 H 152/77 H Pulse Oximetry 100 99 100 09/08/18 00:00 09/08/18 01:00 09/08/18 02:00 Temperature Pulse Rate 106 H 102 H 102 H Respiratory Rate 22 19 16 Blood Pressure 154/79 H 151/75 H Pulse Oximetry 100 100 100 09/08/18 02:04 09/08/18 03:00 09/08/18 03:38 Temperature Pulse Rate 108 H 106 H 103 H Respiratory Rate 20 19 21 Blood Pressure 165/91 H 151/76 H Pulse Oximetry 100 100 09/08/18 03:39 09/08/18 04:00 09/08/18 05:00 Temperature Pulse Rate 107 H 109 H Respiratory Rate 21 20 Blood Pressure 146/76 H 161/81 H Pulse Oximetry 100 100 100 09/08/18 06:00 09/08/18 07:00 09/08/18 08:00 Temperature Pulse Rate 102 H 102 H 104 H Respiratory Rate 17 19 20 Blood Pressure 144/72 H 145/81 H 154/81 H Pulse Oximetry 99 100 100 09/08/18 08:55 09/08/18 09:00 09/08/18 09:06 Temperature Pulse Rate 96 H 95 H 97 H Respiratory Rate 14 14 Blood Pressure 160/81 H 161/85 H Pulse Oximetry 100 100 100 09/08/18 09:15 09/08/18 09:30 09/08/18 09:45 Temperature Pulse Rate 95 H 96 H 95 H Respiratory Rate 15 14 15 Blood Pressure 163/83 H 175/93 H 161/89 H Pulse Oximetry 100 100 100 09/08/18 10:00 09/08/18 10:15 09/08/18 10:30 Temperature Pulse Rate 100 H 98 H 94 H Respiratory Rate 21 25 H 18 Blood Pressure 163/91 H 169/91 H 150/79 H Pulse Oximetry 100 100 100 09/08/18 10:45 09/08/18 11:00 09/08/18 11:15 Temperature Pulse Rate 93 H 94 H 97 H Respiratory Rate 15 15 17 Blood Pressure 141/76 H 152/79 H 165/86 H Pulse Oximetry 100 100 100 09/08/18 11:30 09/08/18 11:45 09/08/18 12:00 Temperature Pulse Rate 94 H 94 H 92 H Respiratory Rate 17 16 16 Blood Pressure 153/83 H 153/87 H 145/79 H Pulse Oximetry 100 100 100 09/08/18 12:15 09/08/18 12:30 09/08/18 13:00 Temperature Pulse Rate 95 H 94 H 102 H Respiratory Rate 17 16 24 Blood Pressure 160/77 H 160/83 H 177/87 H Pulse Oximetry 100 100 100 09/08/18 14:00 Temperature Pulse Rate 101 H Respiratory Rate 17 Blood Pressure 162/78 H Pulse Oximetry 100 Intake & Output 09/07/18 09/08/18 09/08/18 18:59 06:59 18:59 Intake Total 250 / 250 Output Total 0 / 0 0 / 0 1999 Balance 250 / 250 0 / 0 -1999 Weight 50 kg Intake: IV 250 / 250 Flexbumin 25% Inj 100 ML @ 60 200 / 200 mls/hr IV.SIG WITH DIALYSIS PRN Rx#:[id number] Zosyn 2.25 GM Premix 50 ML @ 50 / 50 100 mls/hr IV.SIG Q8H RAFAEL Rx#: [id number] Output: Urine 0 / 0 0 / 0 Hemodialysis Amount 1999 Other: Date of Last Bowel Movement 09/06/18 09/06/18 09/06/18 Narrative: GENERAL: AAOx3, no acute distress, weak appearing, minimal movements, poor effort and voice SKIN: Warm and dry. No rashes HEAD: Atruamtic, normocephalic. EYES: No scleral icterus. No injection or drainage. ENT: Moist mucous membranes, patent nares, no erythema of oropharynx. NECK: Supple, trachea midline. No JVD or lymphadenopathy. Normal thyroid. CARDIOVASCULAR: Regular rate and rhythm. No murmurs, gallops, or rubs. RESPIRATORY: Breath sounds clear equal bilaterally. No crackles or wheezes. No accessory muscle use. GASTROINTESTINAL: Abdomen soft, non-tender, nondistended, normal active bowel sounds MUSCULOSKELETAL: No cyanosis, or edema. NEURO: CN II-XII grossly intact, no focal deficits, no slurring of speech Results - Labs CBC & Chem 7: 09/08/18 05:10 09/08/18 05:10 Laboratory Results - last 24 hr 09/07/18 09/08/18 09/08/18 21:02 05:10 05:10 WBC 15.4 H RBC 4.59 Hgb 12.3 D Hct 37.9 MCV 82.6 MCH 26.7 L MCHC 32.3 RDW 19.8 H Plt Count 104 L MPV 10.2 Sodium 140 Potassium 4.3 D Chloride 98 Carbon Dioxide 26.4 Anion Gap 16 H BUN 42 H Creatinine 5.71 H Estimated GFR 9 L Random Glucose 164 H Calcium 9.1 Total Bilirubin 1.4 H AST 31 ALT 18 Alkaline Phosphatase 275 H Total Protein 7.0 D Albumin 2.5 L Random Vancomycin Less than 0.8 Microbiology 09/06/18 11:28 Blood - Peripheral Aerobic Blood Culture - Final S. aureus MRSA 09/06/18 11:28 Blood - Peripheral Anaerobic Blood Culture - Final S. aureus MRSA 09/06/18 11:20 Blood - Peripheral Aerobic Blood Culture - Preliminary S. aureus MRSA 09/06/18 11:20 Blood - Peripheral Anaerobic Blood Culture - Final S. 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 Patient had normal CT of the brain on admission MRSA sepsis Both blood cultures returned positive Continuing renally dosed vancomycin, Zosyn discontinued by infectious disease Ischemic right foot, vascular surgery consulted by infectious disease Appreciate infectious disease consult Appreciate vascular surgery consult End-stage renal disease Patient missed 2 dialysis treatments Continue Thursday schedule Appreciate nephrology consult Pulmonary Edema Continue with catch-up dialysis Duo nebs every 6 hours scheduled and as needed Encourage incentive spirometry Right renal mass Urology consulted for evaluation Recommendation is likely nephrectomy by Dr. Ramses Perera Outpatient follow-up recommended following discharge Appreciate urology consult Type 2 diabetes Accu-Cheks with sliding scale insulin coverage Diabetic diet h/o CAD LAD stent 06/08 Chronic systolic CHF, EF equals 30-35% in 2017, severe TR h/o PAD left BKA, iliofemoral bypass, right femoropopliteal bypass November 2017 Continue baby aspirin DVT Prophylaxis Heparin
--- NOTE | 2018-09-08 18:08 | P.PNID ---
Subjective Remarks: pt is strill confused, speach is incoherent afebrile 2 D echo with MV vegetation afebrile Antibiotics: vanco Allergies/Adverse Reactions: Allergies latex Allergy (Severe, Unverified 09/06/18 11:19) Edema RASH Objective Vital Signs 09/07/18 18:00 09/07/18 18:15 09/07/18 18:30 Temperature Pulse Rate 96 H 105 H 103 H Respiratory Rate 15 16 15 Blood Pressure 149/78 H 161/78 H 159/78 H Pulse Oximetry 100 100 100 09/07/18 18:45 09/07/18 19:00 09/07/18 19:15 Temperature Pulse Rate 100 H 102 H 111 H Respiratory Rate 13 13 26 H Blood Pressure 160/80 H 162/87 H 167/89 H Pulse Oximetry 100 100 100 09/07/18 19:30 09/07/18 19:45 09/07/18 19:47 Temperature Pulse Rate 110 H 111 H 110 H Respiratory Rate 22 38 H 20 Blood Pressure 159/82 H 176/111 H 166/91 H Pulse Oximetry 100 100 100 09/07/18 20:00 09/07/18 20:15 09/07/18 20:22 Temperature 99.7 F H Pulse Rate 113 H 107 H 101 H Respiratory Rate 23 19 21 Blood Pressure 179/91 H 165/85 H Pulse Oximetry 100 100 09/07/18 20:23 09/07/18 20:30 09/07/18 20:45 Temperature Pulse Rate 107 H 108 H Respiratory Rate 17 17 Blood Pressure 163/82 H 147/79 H Pulse Oximetry 100 100 100 09/07/18 21:00 09/07/18 21:02 09/07/18 22:00 Temperature Pulse Rate 104 H 104 H 109 H Respiratory Rate 16 16 23 Blood Pressure 141/73 H 149/72 H Pulse Oximetry 100 100 100 09/07/18 23:00 09/07/18 23:06 09/08/18 00:00 Temperature Pulse Rate 108 H 108 H 106 H Respiratory Rate 22 48 H 22 Blood Pressure 151/106 H 152/77 H 154/79 H Pulse Oximetry 99 100 100 09/08/18 01:00 09/08/18 02:00 09/08/18 02:04 Temperature Pulse Rate 102 H 102 H 108 H Respiratory Rate 19 16 20 Blood Pressure 151/75 H 165/91 H Pulse Oximetry 100 100 100 09/08/18 03:00 09/08/18 03:38 09/08/18 03:39 Temperature Pulse Rate 106 H 103 H Respiratory Rate 19 21 Blood Pressure 151/76 H Pulse Oximetry 100 100 09/08/18 04:00 09/08/18 05:00 09/08/18 06:00 Temperature Pulse Rate 107 H 109 H 102 H Respiratory Rate 21 20 17 Blood Pressure 146/76 H 161/81 H 144/72 H Pulse Oximetry 100 100 99 09/08/18 07:00 09/08/18 08:00 09/08/18 08:55 Temperature Pulse Rate 102 H 104 H 96 H Respiratory Rate 19 20 14 Blood Pressure 145/81 H 154/81 H 160/81 H Pulse Oximetry 100 100 100 09/08/18 09:00 09/08/18 09:06 09/08/18 09:15 Temperature Pulse Rate 95 H 97 H 95 H Respiratory Rate 14 15 Blood Pressure 161/85 H 163/83 H Pulse Oximetry 100 100 100 09/08/18 09:30 09/08/18 09:45 09/08/18 10:00 Temperature Pulse Rate 96 H 95 H 100 H Respiratory Rate 14 15 21 Blood Pressure 175/93 H 161/89 H 163/91 H Pulse Oximetry 100 100 100 09/08/18 10:15 09/08/18 10:30 09/08/18 10:45 Temperature Pulse Rate 98 H 94 H 93 H Respiratory Rate 25 H 18 15 Blood Pressure 169/91 H 150/79 H 141/76 H Pulse Oximetry 100 100 100 09/08/18 11:00 09/08/18 11:15 09/08/18 11:30 Temperature Pulse Rate 94 H 97 H 94 H Respiratory Rate 15 17 17 Blood Pressure 152/79 H 165/86 H 153/83 H Pulse Oximetry 100 100 100 09/08/18 11:45 09/08/18 12:00 09/08/18 12:15 Temperature Pulse Rate 94 H 92 H 95 H Respiratory Rate 16 16 17 Blood Pressure 153/87 H 145/79 H 160/77 H Pulse Oximetry 100 100 100 09/08/18 12:30 09/08/18 13:00 09/08/18 14:00 Temperature Pulse Rate 94 H 102 H 101 H Respiratory Rate 16 24 17 Blood Pressure 160/83 H 177/87 H 162/78 H Pulse Oximetry 100 100 100 09/08/18 15:00 09/08/18 16:00 09/08/18 16:52 Temperature 98.6 F Pulse Rate 101 H 100 H 101 H Respiratory Rate 17 21 18 Blood Pressure 149/72 H 148/76 H Pulse Oximetry 100 100 Intake & Output 09/07/18 09/08/18 09/08/18 18:59 06:59 18:59 Intake Total 250 / 250 250 / 250 Output Total 0 / 0 0 / 0 1999 Balance 250 / 250 0 / 0 -1750 / -1750 Weight 50 kg Intake: IV 250 / 250 250 / 250 Flexbumin 25% Inj 100 ML @ 60 200 / 200 mls/hr IV.SIG WITH DIALYSIS PRN Rx#:[id number] Zosyn 2.25 GM Premix 50 ML @ 50 / 50 100 mls/hr IV.SIG Q8H RAFALE Rx#: [id number] Vancomycin Inj 1,000 MG In NS 250 / 250 Inj 250 ML @ 250 mls/hr IV.SIG WITH DIALYSIS RAFAEL Rx#:[id number] Output: Urine 0 / 0 0 / 0 Hemodialysis Amount 1999 Other: Date of Last Bowel Movement 09/06/18 09/06/18 09/06/18 09/06/18 11:28 Blood - Peripheral Aerobic Blood Culture - Final S. aureus MRSA 09/06/18 11:28 Blood - Peripheral Anaerobic Blood Culture - Final S. aureus MRSA 09/06/18 11:20 Blood - Peripheral Aerobic Blood Culture - Preliminary S. aureus MRSA 09/06/18 11:20 Blood - Peripheral Anaerobic Blood Culture - Final S. aureus MRSA Lab - Hematology Results 09/07/18 09/08/18 04:01 05:10 WBC 22.6 H 15.4 H RBC 5.73 H 4.59 Hgb 15.4 H 12.3 D Hct 48.3 H 37.9 MCV 84.2 82.6 MCH 26.9 L 26.7 L MCHC 31.9 L 32.3 RDW 19.7 H 19.8 H Plt Count 92 L 104 L MPV 10.1 10.2 Prelim Diff (Auto) Manual diff required WBC Differential Manual diff final Seg Neuts % (Manual) 98 H Band Neuts % (Manual) 1 Lymphocytes % (Manual) 1 L Abs Neuts (Manual) 22.4 H Differential Comment . Toxic Vacuolation Present H Platelet Estimate Low L Platelet Morphology Enlarged H Target Cells 1+ H Ovalocytes 1+ H Acanthocytes (Spur) Occ H Lab - Chemistry Results 09/06/18 09/07/18 09/07/18 19:26 00:04 04:01 Sodium 138 Potassium 5.2 H D 5.2 H 5.3 H Chloride 98 Carbon Dioxide 23.6 Anion Gap 16 H BUN 47 H Creatinine 6.24 H Estimated GFR 8 L Random Glucose 152 H Calcium 8.8 Total Bilirubin 1.1 H AST 63 H ALT 30 Alkaline Phosphatase 443 H Total Protein 7.6 Albumin 2.0 L 09/08/18 05:10 Sodium 140 Potassium 4.3 D Chloride 98 Carbon Dioxide 26.4 Anion Gap 16 H BUN 42 H Creatinine 5.71 H Estimated GFR 9 L Random Glucose 164 H Calcium 9.1 Total Bilirubin 1.4 H AST 31 ALT 18 Alkaline Phosphatase 275 H Total Protein 7.0 D Albumin 2.5 L Imaging: ITS Impressions Abdomen/Pelvis CT 09/06/18 11:10 CONCLUSION: 1. Moderate stool in the rectum. No dilated loops of bowel to suggest obstruction. 2. Persistent large solid mass arising from the superior pole the right kidney measuring up to 6.2 cm. This is a renal cell carcinoma until proven otherwise. 3. End-stage appearing kidneys bilaterally. 4. Prominent diffuse vascular calcifications. Head CT 09/06/18 11:10 CONCLUSION: 1. Atrophy and atherosclerosis. . Chest X-Ray 09/07/18 06:00 CONCLUSION: Cardiomegaly and findings of congestive heart failure. There has been no significant change when compared to the prior exam. Physical Exam: GENERAL: NAD SKIN: Warm and dry. HEAD: Atraumatic. Normocephalic. EYES: Pupils equal and round. No scleral icterus. No injection or drainage. ENT: No nasal bleeding or discharge. Mucous membranes pink and moist. NECK: Trachea midline. No JVD. CARDIOVASCULAR: Regular rate and rhythm. + murmur 3/6 systolic RESPIRATORY: No accessory muscle use. Clear to auscultation. Breath sounds equal bilaterally. GASTROINTESTINAL: Abdomen soft, non-tender, nondistended. Hepatic and splenic margins not palpable. MUSCULOSKELETAL: Extremities without clubbing, cyanosis, or edema. L BKA cold to touch R foot, not refilling L UE IV fistula i place small area of fluctuance just distally the fistula NEUROLOGICAL: Awake and alert. No obvious cranial nerve deficits. Incoherent speech appears to move all extremeties to command PSYCHIATRIC: Appropriate mood and affect; insight and judgment normal. Assessment and Plan - Plan MRSA sepsis: souce MV endocarditis MV endocartditis AMS r/o septic emboli HD, non coml;iance came with electrolutes imbalance Ischemic R foot h/o RLE ileofemoral and fem pop bypass in Feb 2018 cont vancomycin w HD dc zosyn 2 D echo repeat BC consult vasc D rFeezor US AV fistula dw RN
--- NOTE | 2018-09-08 22:52 | MR ---
EXAM DATE: 09/08/2018 10:30 PM EDT AGE/SEX: 58 years / Female INDICATIONS: . Septic Emboli. Lethargic CLINICAL DATA: This is the patient's initial encounter. Patient reports that signs and symptoms have been present for 2 days and indicates a pain score of Nonresponsive. MEDICAL/SURGICAL HISTORY: Diabetes mellitus type II. Hypertension. Hyperlipidemia, ESRD on HD, Gangrene . Left lower extremity below knee amputation. COMPARISON: No prior exams available for comparison. TECHNIQUE: Multiplanar, multisequence examination of the brain was performed without contrast. FINDINGS: No intracranial mass or midline shift. No hydrocephalus. No abnormal extra-axial fluid collections. Mild chronic appearing white matter ischemic changes. No recent infarction on diffusion weighted imag es. No evidence for hemorrhage. CONCLUSION: 1. No acute findings. No recent infarct. Mild chronic white matter ischemic changes in the periventr icular region. Electronically signed by: Jose L Vidal MD 09/08/2018 10:51 PM EDT
[2018-09-09] MEDS: Chlorhexidine Gluconate 2% 1 Pack (2 Cloths) TOPICAL SCH (03:58)
[2018-09-09] MEDS: Heparin - SQ 10,000 UNITS/ML Vial SQ SCH ×2 (05:00→19:18)
[2018-09-09 05:07] LABS: Hemoglobin 13.1 gm/dL (11.6-15.3); Mean Corpuscular HGB Conc 32.7 % (32.0-36.0); Mean Corpuscular Volume 82.6 fL (80.0-100.0); Mean Platelet Volume 10.6 fL (7.0-11.0); Platelet Count 117 th/mm3 (150-450); Red Blood Count 4.84 mil/mm3 (4.00-5.30); Red Cell Distribution Width 19.5 % (11.6-17.2); White Blood Count 14.5 th/mm3 (4.0-11.0)
[2018-09-09 05:32] LABS: Calcium 8.8 mg/dL (8.5-10.1); Carbon Dioxide 29.5 meq/L (21.0-32.0); Potassium 3.9 meq/L (3.5-5.1)
[2018-09-09] MEDS ORDERED: Protamine Sulfate Inj 50 MG/5 ML Vial ONE (10:14)
[2018-09-09] MEDS ORDERED: Heparin 10,000 UNITS/10 ML Vial (for IV use) ONE (10:14)
[2018-09-09] MEDS ORDERED: Bupivacaine 0.5% Inj 50 ML MDV Vial ONE (10:14)
[2018-09-09] MEDS ORDERED: Heparin/NS PF Inj 500 ML ONE (10:15)
[2018-09-09] MEDS ORDERED: Thrombin Topical 20,000 UNIT Spray Kit TOPICAL ONE (10:15)
[2018-09-09] MEDS ORDERED: ceFAZolin 2 GM Premix Inj 2 GM/50 ML PIGGYBACK IV.SIG ONE (10:15)
--- NOTE | 2018-09-09 10:19 | US ---
EXAM DATE: 09/09/2018 12:00 AM EDT AGE/SEX: 58 years / Female INDICATIONS: Evaluate for fluid. CLINICAL DATA: This is the patient's initial encounter. Patient reports that signs and symptoms have been present for 2 days and indicates a pain score of Nonresponsive. MEDICAL/SURGICAL HISTORY: Renal disease, end stage. Hypercholesterolemia. Hypertension. Diab etes. Sepsis. MRSA. . Hemodialysis. AV fistula - LUE. COMPARISON: No prior exams available for comparison. FINDINGS: There is a slightly less than 4 cm mixed echogenicity collection surrounding the fistula outflow in t he medial left upper arm adjacent to the region of the presumed brachiobasilic anastomosis. The fistu la outflow is patent throughout the visualized arm. CONCLUSION: Mixed echogenicity collection around the proximal fistula outflow in the medial left upper arm. Electronically signed by: Martin Barragan MD 09/09/2018 10:18 AM EDT
--- NOTE | 2018-09-09 10:54 | P.PNID ---
Subjective Remarks: Pt fluid collection opned up during US rtoday and blood mixed with pus came out . US results noted Pt ging to OR for repair of infected psedoaneurism 2 D echo with MV vegetation afebrile Antibiotics: vanco Allergies/Adverse Reactions: Allergies latex Allergy (Severe, Unverified 09/06/18 11:19) Edema RASH Objective Vital Signs 09/08/18 11:00 09/08/18 11:15 09/08/18 11:30 Temperature Pulse Rate 94 H 97 H 94 H Respiratory Rate 15 17 17 Blood Pressure 152/79 H 165/86 H 153/83 H Pulse Oximetry 100 100 100 09/08/18 11:45 09/08/18 12:00 09/08/18 12:15 Temperature Pulse Rate 94 H 92 H 95 H Respiratory Rate 16 16 17 Blood Pressure 153/87 H 145/79 H 160/77 H Pulse Oximetry 100 100 100 09/08/18 12:30 09/08/18 13:00 09/08/18 14:00 Temperature Pulse Rate 94 H 102 H 101 H Respiratory Rate 16 24 17 Blood Pressure 160/83 H 177/87 H 162/78 H Pulse Oximetry 100 100 100 09/08/18 15:00 09/08/18 16:00 09/08/18 16:52 Temperature 98.6 F Pulse Rate 101 H 100 H 101 H Respiratory Rate 17 21 18 Blood Pressure 149/72 H 148/76 H Pulse Oximetry 100 100 09/08/18 19:00 09/08/18 20:00 09/08/18 20:32 Temperature 101.1 F H Pulse Rate 108 H 101 H 101 H Respiratory Rate 25 H 21 16 Blood Pressure 151/74 H 145/74 H Pulse Oximetry 100 100 100 09/08/18 21:00 09/08/18 22:00 09/09/18 00:00 Temperature 99.5 F Pulse Rate 103 H 100 H 98 H Respiratory Rate 23 20 Blood Pressure 149/72 H 161/82 H Pulse Oximetry 100 91 L 09/09/18 02:00 09/09/18 03:28 09/09/18 04:00 Temperature 98.8 F Pulse Rate 101 H 99 H 101 H Respiratory Rate 16 18 Blood Pressure 157/80 H Pulse Oximetry 99 09/09/18 06:00 09/09/18 08:00 Temperature Pulse Rate 97 H Respiratory Rate 15 Blood Pressure Pulse Oximetry Intake & Output 09/08/18 09/09/18 09/09/18 18:59 06:59 18:59 Intake Total 650 / 650 220 / 220 Output Total 1999 0 / 0 Balance -1350 / -1350 220 / 220 Weight 47 kg Intake: IV 250 / 250 Vancomycin Inj 1,000 MG In NS 250 / 250 Inj 250 ML @ 250 mls/hr IV.SIG WITH DIALYSIS [facility] Rx#:[id number] Oral 400 / 400 220 / 220 Output: Urine 0 / 0 Hemodialysis Amount 1999 Other: Date of Last Bowel Movement 09/06/18 09/08/18 # Bowel Movements 1 09/06/18 11:20 Blood - Peripheral Aerobic Blood Culture - Final S. aureus MRSA 09/06/18 11:20 Blood - Peripheral Anaerobic Blood Culture - Final S. aureus MRSA 09/09/18 03:47 Blood - Peripheral Aerobic Blood Culture - Pending 09/09/18 03:47 Blood - Peripheral Anaerobic Blood Culture - Pending 09/09/18 03:55 Blood - Peripheral Aerobic Blood Culture - Pending 09/09/18 03:55 Blood - Peripheral Anaerobic Blood Culture - Pending 09/06/18 11:28 Blood - Peripheral Aerobic Blood Culture - Final S. aureus MRSA 09/06/18 11:28 Blood - Peripheral Anaerobic Blood Culture - Final S. aureus MRSA Lab - Hematology Results 09/08/18 09/09/18 05:10 03:47 WBC 15.4 H 14.5 H RBC 4.59 4.84 Hgb 12.3 D 13.1 Hct 37.9 40.0 MCV 82.6 82.6 MCH 26.7 L 27.0 MCHC 32.3 32.7 RDW 19.8 H 19.5 H Plt Count 104 L 117 L MPV 10.2 10.6 Lab - Chemistry Results 09/08/18 09/08/18 09/09/18 05:10 23:14 03:47 Sodium 140 137 Potassium 4.3 D 3.9 Chloride 98 96 L Carbon Dioxide 26.4 29.5 Anion Gap 16 H 12 BUN 42 H 27 H Creatinine 5.71 H 4.00 H Estimated GFR 9 L 14 L POC Glucose 180 H Random Glucose 164 H 186 H Calcium 9.1 8.8 Total Bilirubin 1.4 H AST 31 ALT 18 Alkaline Phosphatase 275 H Total Protein 7.0 D Albumin 2.5 L Imaging: ITS Impressions Abdomen/Pelvis CT 09/06/18 11:10 CONCLUSION: 1. Moderate stool in the rectum. No dilated loops of bowel to suggest obstruction. 2. Persistent large solid mass arising from the superior pole the right kidney measuring up to 6.2 cm. This is a renal cell carcinoma until proven otherwise. 3. End-stage appearing kidneys bilaterally. 4. Prominent diffuse vascular calcifications. Head CT 09/06/18 11:10 CONCLUSION: 1. Atrophy and atherosclerosis. . Chest X-Ray 09/07/18 06:00 CONCLUSION: Cardiomegaly and findings of congestive heart failure. There has been no significant change when compared to the prior exam. Head MRI 09/08/18 00:00 CONCLUSION: 1. No acute findings. No recent infarct. Mild chronic white matter ischemic changes in the periventricular region. Upper Extremity Ultrasound 09/09/18 00:00 CONCLUSION: Mixed echogenicity collection around the proximal fistula outflow in the medial left upper arm. Physical Exam: GENERAL: NAD SKIN: Warm and dry. HEAD: Atraumatic. Normocephalic. EYES: Pupils equal and round. No scleral icterus. No injection or drainage. ENT: No nasal bleeding or discharge. Mucous membranes pink and moist. NECK: Trachea midline. No JVD. CARDIOVASCULAR: Regular rate and rhythm. + murmur 3/6 systolic RESPIRATORY: No accessory muscle use. Clear to auscultation. Breath sounds equal bilaterally. GASTROINTESTINAL: Abdomen soft, non-tender, nondistended. Hepatic and splenic margins not palpable. MUSCULOSKELETAL: Extremities without clubbing, cyanosis, or edema. L BKA cold to touch R foot, not refilling L UE IV fistula i place + dressing in place NEUROLOGICAL: Awake and alert. No obvious cranial nerve deficits. Incoherent speech appears to move all extremeties to command PSYCHIATRIC: Appropriate mood and affect; insight and judgment normal. Assessment and Plan - Plan MRSA sepsis: souce MV endocarditis MV endocartditis AMS r/o septic emboli HD, non coml;iance came with electrolutes imbalance Ischemic R foot h/o RLE ileofemoral and fem pop bypass in Feb 2018 Infected psuedoaneurism of R UE AVF - to OR this am cont vancomycin w HD consult vasc D Jose manriquez RN
--- NOTE | 2018-09-09 10:57 | P.CONVS ---
History of Present Illness Service: Vascular surgery Consult date: 09/09/18 Reason for Consult: To evaluate right lower extremity Primary Care Provider: No Primary Care Physician Chief Complaint: AMS History of Present Illness: 58-year-old female with a past medical history of peripheral vascular disease status post right iliofemoral, right femoral to right popliteal artery bypass was done by Dr. Ramirez. She also has a history of end-stage renal disease and she is currently on hemodialysis via a left upper extremity AV fistula. The patient also had a recent left below-knee amputation that was done at outlying facility. Patient presented to the ER with MRSA bacteremia and sepsis with endocarditis as her sepsis source. Vascular surgery was consulted regarding possible right lower extremity ischemia. Patient currently denies any rest pain in the right lower extremity. She does not have any open wounds or tissue loss. She reports mild pain in the left upper extremity. She denies any chest pain or shortness of breath. Review of Systems unobtainable due to mental condition PMFSH - History History Provided By: Patient - Medical / Surgical Hx Neg / Unobtainable Medical Problems Denied: Unable to Obtain - Medical History Medical History: Medical History (Last Reviewed 09/08/18 @ 10:58 by Cielo Johnson) A-V fistula MDRO (multiple drug resistant organisms) resistance Onset Date: ~09/06/18 Diabetes Dialysis patient Gangrene - Surgical History Surgical History: Surgical History (Last Reviewed 09/08/18 @ 10:58 by Cielo Johnson) Below knee amputation status - Family History Family History: Family History (Last Updated 09/07/18 @ 13:58 by Laura Dowd MD) Other Family history unobtainable - Tobacco History Second Hand Smoke Exposure: No Smoking Status: Unknown if ever smoked - Alcohol History How Often Do You Have a Drink Containing Alcohol: Unable to Obtain - Substance Use History Substance History: Unable to Obtain - Travel History Recent Travel in the [place] Within the Last 8 Weeks: No Recent Travel Out of the Country Within the Last 8 Weeks: No - Immunization History Tetanus Immunization: Unable to Assess Medications and Allergies Active Medications: Active Medications Acetaminophen (Tylenol) 650 mg PO Q6H PRN PRN Reason: PAIN 1-10 AND/OR FEVER >101F Acetaminophen (Tylenol) 650 mg PO UNSCH PRN PRN Reason: SEE LABEL COMMENTS Al Hydroxide/Mg Hydroxide (Milk Of Magnesia Liq) 30 ml PO Q12H PRN PRN Reason: Mild Constipation Albuterol (Albuterol Neb (Prn)) 2.5 mg NEB Q2HR NEB PRN PRN Reason: SHORTNESS OF BREATH/WHEEZING Albuterol (Duoneb Neb (Diamond)) 1 ampul NEB Q6HR NEB DIAMOND Last Admin: 09/09/18 03:28 Dose: 1 ampul Bisacodyl (Dulcolax Supp) 10 mg RECTAL DAILY PRN PRN Reason: SEVERE CONSITIPATION Chlorhexidine Gluconate (Chlorhexidine 2% Cloth) 3 pack TOPICAL DAILY@0400 DIAMOND Stop: 09/12/18 03:59 Last Admin: 09/09/18 03:58 Dose: 3 pack Chlorhexidine Gluconate (Chlorhexidine 2% Cloth) 3 pack TOPICAL DAILY@0400 PRN PRN Reason: Extra cloth needed Stop: 09/12/18 03:59 Clonidine HCl (Catapres) 0.1 mg PO UNSCH PRN PRN Reason: SEE LABEL COMMENTS Diphenhydramine HCl (Benadryl) 25 mg PO UNSCH PRN PRN Reason: SEE LABEL COMMENTS Famotidine (Pepcid Pf Inj) 10 mg IV.PUSH Q12HR DIAMOND Last Admin: 09/08/18 21:57 Dose: 10 mg Gelatin (Gelfoam 12 Mm/7 Mm Topical) 1 foam TOPICAL PRN PRN PRN Reason: help stop bleeding from site Last Admin: 09/06/18 15:02 Dose: 1 foam Gentamicin Sulfate (Gentamicin Inj) 20 mg OTHER WITH DIALYSIS PRN PRN Reason: Dwell Gentamycin Lock Heparin Sodium (Porcine) (Heparin Inj) 1,000 units OTHER WITH DIALYSIS PRN PRN Reason: Dwell Heparin to Fill Catheter Heparin Sodium (Porcine) (Heparin Inj) 5,000 units SQ Q12H DIAMOND Last Admin: 09/09/18 05:00 Dose: 5,000 units Heparin Sodium (Porcine) (Heparin Inj) 8,000 units OTHER WITH DIALYSIS PRN PRN Reason: for machine prime Albumin Human (Flexbumin 25% Inj) 100 mls @ 60 mls/hr IV.SIG WITH DIALYSIS PRN PRN Reason: hypotension / volume replace Last Infusion: 09/07/18 14:25 Dose: Infused Sodium Chloride (Ns Inj) 1,000 mls @ 0 mls/hr OTHER .Q0M PRN PRN Reason: for prime and rinse back Last Infusion: 09/06/18 19:00 Dose: 0 mls/hr Sodium Chloride (Ns Inj) 1,000 mls @ 200 mls/hr OTHER .Q5H PRN PRN Reason: for dialyzer flush PRN Sodium Chloride (Ns Inj) 1,000 mls @ 0 mls/hr IV.CONT .Q0M PRN PRN Reason: hypotension / volume replace Vancomycin HCl 1,000 mg/ (Sodium Chloride) 250 mls @ 250 mls/hr IV.SIG WITH DIALYSIS [facility] Last Infusion: 09/08/18 13:10 Dose: Infused Lactulose (Lactulose Liq) 30 ml PO DAILY PRN PRN Reason: SEVERE CONSITIPATION Mannitol (Mannitol Inj) 12.5 gm IV.PUSH UNSCH PRN PRN Reason: hypotension / volume replace Nitroglycerin (Nitrostat Sl) 0.4 mg SL Q5M PRN PRN Reason: CHEST PAIN Ondansetron HCl (Zofran Inj) 4 mg IV.PUSH UNSCH PRN PRN Reason: NAUSEA OR VOMITING Senna/Docusate Sodium (Elsy-Colace) 1 tab PO BID [facility] Last Admin: 09/08/18 21:57 Dose: 1 tab Sennosides (Senokot) 17.2 mg PO Q12H PRN PRN Reason: Moderate Constipation Sodium Chloride (Ns Flush) 5 ml IV.FLUSH PRN PRN PRN Reason: flush each lumen during HD Sodium Chloride (Ns Flush) 2 ml IV.FLUSH BID [facility] Last Admin: 09/08/18 21:57 Dose: 2 ml Sodium Chloride (Ns Flush) 2 ml IV.FLUSH PRN PRN PRN Reason: FLUSH AFTER USING IV ACCESS Allergies Allergy/AdvReac Type Severity Reaction Status Date / Time latex Allergy Severe Edema Unverified 09/06/18 11:19 Home Medications Medication Instructions Recorded Confirmed Type Unable to Obtain Home Meds 09/06/18 09/06/18 History Physical Exam Vital Signs / I&O: Vital Signs 09/08/18 10:45 09/08/18 11:00 09/08/18 11:15 Temperature Pulse Rate 93 H 94 H 97 H Respiratory Rate Blood Pressure 141/76 H 152/79 H 165/86 H Pulse Oximetry 100 100 100 09/08/18 11:30 09/08/18 11:45 09/08/18 12:00 Temperature Pulse Rate 94 H 94 H 92 H Respiratory Rate 17 16 16 Blood Pressure 153/83 H 153/87 H 145/79 H Pulse Oximetry 100 100 100 09/08/18 12:15 09/08/18 12:30 09/08/18 13:00 Temperature Pulse Rate 95 H 94 H 102 H Respiratory Rate 17 16 24 Blood Pressure 160/77 H 160/83 H 177/87 H Pulse Oximetry 100 100 100 09/08/18 14:00 09/08/18 15:00 09/08/18 16:00 Temperature 98.6 F Pulse Rate 101 H 101 H 100 H Respiratory Rate 17 17 21 Blood Pressure 162/78 H 149/72 H 148/76 H Pulse Oximetry 100 100 100 09/08/18 16:52 09/08/18 19:00 09/08/18 20:00 Temperature 101.1 F H Pulse Rate 101 H 108 H 101 H Respiratory Rate 18 25 H 21 Blood Pressure 151/74 H 145/74 H Pulse Oximetry 100 100 09/08/18 20:32 09/08/18 21:00 09/08/18 22:00 Temperature Pulse Rate 101 H 103 H 100 H Respiratory Rate 16 23 Blood Pressure 149/72 H Pulse Oximetry 100 100 09/09/18 00:00 09/09/18 02:00 09/09/18 03:28 Temperature 99.5 F Pulse Rate 98 H 101 H 99 H Respiratory Rate 20 16 Blood Pressure 161/82 H Pulse Oximetry 91 L 09/09/18 04:00 09/09/18 06:00 09/09/18 08:00 Temperature 98.8 F Pulse Rate 101 H 97 H Respiratory Rate 18 15 Blood Pressure 157/80 H Pulse Oximetry 99 Intake & Output 09/08/18 09/09/18 09/09/18 18:59 06:59 18:59 Intake Total 650 / 650 220 / 220 Output Total 1999 0 / 0 Balance -1350 / -1350 220 / 220 Weight 47 kg Intake: IV 250 / 250 Vancomycin Inj 1,000 MG In NS 250 / 250 Inj 250 ML @ 250 mls/hr IV.SIG WITH DIALYSIS [facility] Rx#:[id number] Oral 400 / 400 220 / 220 Output: Urine 0 / 0 Hemodialysis Amount 1999 Other: Date of Last Bowel Movement 09/06/18 09/08/18 # Bowel Movements 1 Neuro: Confused HEENT: Normocephalic atraumatic Neck: Supple Heart: S1-S2 Lungs: Clear to auscultation bilateral Abdomen: Soft nontender nondistended Vascular: Right lower extremity with monophasic dorsalis pedis signal. There is no motor or sensory deficit. Palpable left radial pulse. Extremities: Left upper extremity fistula with good thrill. The inferior aspect of the fistula there is a small open wound the measures approximately 0.5 a centimeter in diameter with purulent bloody discharge. There is also area of fluctuance that measures approximately 3 cm in diameter. +1 left hand edema. Left below-knee amputation wound is intact. There is a mild serous drainage from the middle of the wound. No purulent discharge. Laboratory Results - last 24 hr 09/08/18 09/09/18 09/09/18 23:14 03:47 03:47 WBC 14.5 H RBC 4.84 Hgb 13.1 Hct 40.0 MCV 82.6 MCH 27.0 MCHC 32.7 RDW 19.5 H Plt Count 117 L MPV 10.6 Sodium 137 Potassium 3.9 Chloride 96 L Carbon Dioxide 29.5 Anion Gap 12 BUN 27 H Creatinine 4.00 H Estimated GFR 14 L POC Glucose 180 H Random Glucose 186 H Calcium 8.8 Microbiology 09/06/18 11:20 Aerobic Blood Culture - Final Blood - Peripheral S. aureus MRSA Anaerobic Blood Culture - Final S. aureus MRSA 09/06/18 11:28 Aerobic Blood Culture - Final Blood - Peripheral S. aureus MRSA Anaerobic Blood Culture - Final S. aureus MRSA Impressions Head MRI 09/08/18 00:00 CONCLUSION: 1. No acute findings. No recent infarct. Mild chronic white matter ischemic changes in the periventricular region. Upper Extremity Ultrasound 09/09/18 00:00 CONCLUSION: Mixed echogenicity collection around the proximal fistula outflow in the medial left upper arm. Assessment and Plan - Assessment (1) Abscess of upper extremity Code(s): L02.419 - Cutaneous abscess of limb, unspecified Status: Acute (2) Toxic metabolic encephalopathy Code(s): G92 - Toxic encephalopathy Status: Acute (3) Severe sepsis Code(s): A41.9 - Sepsis, unspecified organism; R65.20 - Severe sepsis without septic shock Status: Acute (4) PAD (peripheral artery disease) Code(s): I73.9 - Peripheral vascular disease, unspecified Status: Chronic - Plan Right lower extremity peripheral vascular disease history of revascularization done by Dr. Ramirez. Monophasic dorsalis pedis signal on exam. There is no signs of acute limb ischemia. We will obtain duplex ultrasound of the right lower extremity to evaluate the bypass. Left upper extremity abscess, infected hematoma. Spontaneously draining at bedside with purulent bloody discharge and evidence of fluid collection in duplex ultrasound. This could be infected pseudoaneurysm with impending rupture. Will apply pressure dressing Will take the patient urgently to the operating room for drainage of her abscess and repair of pseudoaneurysm if needed. Thank you for allowing me to participate in this patient care. IF you have any questions please do not hesitate to call my cell phone. Baudilio Hayes MD [facility] [phone]
[2018-09-09] MEDS: Senna/Docusate Sodium 8.6/50 MG Tablet PO SCH ×2 (12:42→20:34)
[2018-09-09] MEDS: Famotidine PF Inj 20 MG/2 ML Vial IV.PUSH SCH ×2 (12:42→20:34)
--- NOTE | 2018-09-09 12:56 | P.OP ---
Preoperative Diagnosis: Infected left upper extremity pseudoaneurysm with impending rupture Postoperative Diagnosis: Infected left upper extremity pseudoaneurysm with impending rupture Date of procedure: 09/09/18 Procedure: #1 incision and drainage of a left upper extremity abscess. #2 total excision of infected left upper extremity pseudoaneurysm #3 left brachial cephalic AV graft placement using bovine carotid artery graft Anesthesia: GETA Surgeon: Baudilio Hayes MD Estimated blood loss (mL): 50 Pathology: none sent (Left upper extremity infected pseudoaneurysm) Operation and Findings: Findings #1 infected left upper extremity arteriovenous fistula pseudoaneurysm with contained rupture and adherent clot. That was repaired the total excision and placement of a left brachial axillary bovine carotid AV graft. #2 successful drainage of infected left upper extremity hematoma. Cultures were also obtained and sent for microbiology. Operation in detail The patient was taken to the operating room and responded irritable. After adequate sedation the patient was prepped and draped in the standard sterile fashion. Timeout was called with all members in agreement. An incision was made proximal to the infected pseudoaneurysm and dissection was taken down through the subcutaneous tissues electrocautery. We dissected the brachial artery to obtain proximal control. At this point a vessel loop was encircled around the vessel. And the pseudoaneurysm was dissected along the length of the brachiocephalic fistula. Identified 3 large pseudoaneurysms. The largest pseudoaneurysm was near the brachial artery anastomosis and was ruptured. All the pseudoaneurysms were dissected freely and excised. Hemostasis achieved. The bovine graft was brought into the field cut to appropriate length and the proximal to the anastomosis fashioned using a 6-0 Prolene suture in the running fashion. The distal anastomosis also fashion to the cephalic vein using a 6-0 Prolene suture in running fashion. Hemostasis was achieved and the wound was closed in multiple layers of Vicryl suture followed by Monocryl suture. Sterile dressing was applied the patient was taken to the recovery unit in stable condition. Conclusion 58-year-old female who presented with MRSA bacteremia was found to have infected left upper extremity pseudoaneurysm. The pseudoaneurysm was totally excised and a brachiocephalic arteriovenous fistula was created using a bovine carotid graft. The patient will need permacath for hemodialysis until the left upper extremity wound is completely healed.
[2018-09-09] MEDS ORDERED: DESMOPRESSIN IV.SIG ONE (13:00)
[2018-09-09] MEDS ORDERED: SODIUM CHLOR 0.9% IV.SIG ONE (13:00)
--- NOTE | 2018-09-09 17:29 | P.PNIM ---
Subjective Interval history: Patient states she has slightly more energy today, she remains alert and oriented x3. She is still overall weak following to missed dialysis treatments. She underwent surgery this afternoon for revision of her AV graft. Physical Exam Vital signs: Vital Signs 09/08/18 19:00 09/08/18 20:00 09/08/18 20:32 Temperature 101.1 F H Pulse Rate 108 H 101 H 101 H Respiratory Rate 25 H 21 16 Blood Pressure 151/74 H 145/74 H Pulse Oximetry 100 100 100 09/08/18 21:00 09/08/18 22:00 09/09/18 00:00 Temperature 99.5 F Pulse Rate 103 H 100 H 98 H Respiratory Rate 23 20 Blood Pressure 149/72 H 161/82 H Pulse Oximetry 100 91 L 09/09/18 02:00 09/09/18 03:28 09/09/18 04:00 Temperature 98.8 F Pulse Rate 101 H 99 H 101 H Respiratory Rate 16 18 Blood Pressure 157/80 H Pulse Oximetry 99 09/09/18 06:00 09/09/18 08:00 09/09/18 09:00 Temperature 98.6 F Pulse Rate 97 H 93 H 92 H Respiratory Rate 13 Blood Pressure 135/74 Pulse Oximetry 98 09/09/18 10:00 09/09/18 14:00 09/09/18 15:46 Temperature Pulse Rate 90 90 90 Respiratory Rate 15 Blood Pressure Pulse Oximetry 09/09/18 16:00 Temperature 98.4 F Pulse Rate 98 H Respiratory Rate 18 Blood Pressure 124/65 Pulse Oximetry 98 Intake & Output 09/08/18 09/09/18 09/09/18 18:59 06:59 18:59 Intake Total 650 / 650 220 / 220 300 / 300 Output Total 2000 / 1999 0 / 0 50 / 50 Balance -1350 / -1350 220 / 220 250 / 250 Weight 47 kg Intake: IV 250 / 250 50 / 50 Heparin/NS PF Inj 500 ML @ 0 0 / 0 mls/hr .ROUTE .STK-[facility] Rx#: [id number] Vancomycin Inj 1,000 MG In NS 250 / 250 Inj 250 ML @ 250 mls/hr IV.SIG WITH DIALYSIS [facility] Rx#:[id number] Ancef 2 GM Premix Inj 2 gm In 50 / 50 50 ml @ 0 mls/hr IV.SIG .STK- [facility] Rx#:[id number] Oral 400 / 400 220 / 220 Anesthesia Amount 250 / 250 Output: Urine 0 / 0 Hemodialysis Amount 1999 Estimated Blood Loss 50 / 50 Other: Date of Last Bowel Movement 09/06/18 09/08/18 09/09/18 # Bowel Movements 1 Narrative: GENERAL: AAOx3, no acute distress, weak appearing, minimal movements, poor effort and voice SKIN: Warm and dry. No rashes HEAD: Atruamtic, normocephalic. EYES: No scleral icterus. No injection or drainage. ENT: Moist mucous membranes, patent nares, no erythema of oropharynx. NECK: Supple, trachea midline. No JVD or lymphadenopathy. Normal thyroid. CARDIOVASCULAR: Regular rate and rhythm. No murmurs, gallops, or rubs. RESPIRATORY: Breath sounds clear equal bilaterally. No crackles or wheezes. No accessory muscle use. GASTROINTESTINAL: Abdomen soft, non-tender, nondistended, normal active bowel sounds MUSCULOSKELETAL: No cyanosis, or edema. NEURO: CN II-XII grossly intact, no focal deficits, no slurring of speech Results - Labs CBC & Chem 7: 09/09/18 03:47 09/09/18 03:47 Laboratory Results - last 24 hr 09/08/18 09/09/18 09/09/18 23:14 03:47 03:47 WBC 14.5 H RBC 4.84 Hgb 13.1 Hct 40.0 MCV 82.6 MCH 27.0 MCHC 32.7 RDW 19.5 H Plt Count 117 L MPV 10.6 Sodium 137 Potassium 3.9 Chloride 96 L Carbon Dioxide 29.5 Anion Gap 12 BUN 27 H Creatinine 4.00 H Estimated GFR 14 L POC Glucose 180 H Random Glucose 186 H Calcium 8.8 Microbiology 09/06/18 11:20 Blood - Peripheral Aerobic Blood Culture - Final S. aureus MRSA 09/06/18 11:20 Blood - Peripheral Anaerobic Blood Culture - Final S. aureus MRSA - Imaging Impressions Head MRI 09/08/18 00:00 CONCLUSION: 1. No acute findings. No recent infarct. Mild chronic white matter ischemic changes in the periventricular region. Upper Extremity Ultrasound 09/09/18 00:00 CONCLUSION: Mixed echogenicity collection around the proximal fistula outflow in the medial left upper arm. 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 versus sepsis as underlying p d driver for encephalopathy Patient had normal CT of the brain on admission MRSA sepsis Both blood cultures returned positive Continuing renally dosed vancomycin, Zosyn discontinued by infectious disease Ischemic right foot, vascular surgery consulted by infectious disease Appreciate infectious disease consult Appreciate vascular surgery consult End-stage renal disease Patient missed 2 dialysis treatments Continue Thursday schedule Patient underwent surgery 09/09/18 for revision of her AV graft Appreciate nephrology consult Pulmonary Edema Continue with dialysis for fluid management Duo nebs every 6 hours scheduled and as needed Encourage incentive spirometry Right renal mass Urology consulted for evaluation Recommendation is likely nephrectomy by Dr. Ramses Perera Outpatient follow-up recommended following discharge Appreciate urology consult Type 2 diabetes Accu-Cheks with sliding scale insulin coverage Diabetic diet h/o CAD LAD stent 06/08 Chronic systolic CHF, EF equals 30-35% in 2017, severe TR h/o PAD left BKA, iliofemoral bypass, right femoropopliteal bypass November 2017 Continue baby aspirin DVT Prophylaxis Heparin
--- NOTE | 2018-09-09 18:49 | P.PNNP ---
Subjective Interval history: patient was seen in the morning. She later underwent repair of infected pseudoaneurysm of AVF. She will need CVC for dialysis tomorrow. Discussed ID. 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 Physical Exam Vital signs: Vital Signs 09/08/18 19:00 09/08/18 20:00 09/08/18 20:32 Temperature 101.1 F H Pulse Rate 108 H 101 H 101 H Respiratory Rate 25 H 21 16 Blood Pressure 151/74 H 145/74 H Pulse Oximetry 100 100 100 09/08/18 21:00 09/08/18 22:00 09/09/18 00:00 Temperature 99.5 F Pulse Rate 103 H 100 H 98 H Respiratory Rate 23 20 Blood Pressure 149/72 H 161/82 H Pulse Oximetry 100 91 L 09/09/18 02:00 09/09/18 03:28 09/09/18 04:00 Temperature 98.8 F Pulse Rate 101 H 99 H 101 H Respiratory Rate 16 18 Blood Pressure 157/80 H Pulse Oximetry 99 09/09/18 06:00 09/09/18 08:00 09/09/18 09:00 Temperature 98.6 F Pulse Rate 97 H 93 H 92 H Respiratory Rate 13 Blood Pressure 135/74 Pulse Oximetry 98 09/09/18 10:00 09/09/18 14:00 09/09/18 15:46 Temperature Pulse Rate 90 90 90 Respiratory Rate 15 Blood Pressure Pulse Oximetry 09/09/18 16:00 Temperature 98.4 F Pulse Rate 98 H Respiratory Rate 18 Blood Pressure 124/65 Pulse Oximetry 98 Intake & Output 09/08/18 09/09/18 09/09/18 18:59 06:59 18:59 Intake Total 650 / 650 220 / 220 300 / 300 Output Total 2000 / 1999 0 / 0 50 / 50 Balance -1350 / -1350 220 / 220 250 / 250 Weight 47 kg Intake: IV 250 / 250 50 / 50 Heparin/NS PF Inj 500 ML @ 0 0 / 0 mls/hr .ROUTE .[facility] Rx#: [id number] Vancomycin Inj 1,000 MG In NS 250 / 250 Inj 250 ML @ 250 mls/hr IV.SIG WITH [facility] Rx#:[id number] Ancef 2 GM Premix Inj 2 gm In 50 / 50 50 ml @ 0 mls/hr IV.SIG .STK- [facility] ONE Rx#:[id number] Oral 400 / 400 220 / 220 Anesthesia Amount 250 / 250 Output: Urine 0 / 0 Hemodialysis Amount 1999 / 1999 Estimated Blood Loss 50 / 50 Other: Date of Last Bowel Movement 09/06/18 09/08/18 09/09/18 # Bowel Movements 1 Narrative: GENERAL: AAOx3, no acute distress, weak appearing, minimal movements, poor effort and voice SKIN: Warm and dry. No rashes HEAD: Atruamtic, normocephalic. EYES: No scleral icterus. No injection or drainage. ENT: Moist mucous membranes, patent nares, no erythema of oropharynx. NECK: Supple, trachea midline. No JVD or lymphadenopathy. Normal thyroid. CARDIOVASCULAR: Regular rate and rhythm. No murmurs, gallops, or rubs. RESPIRATORY: Breath sounds clear equal bilaterally. No crackles or wheezes. No accessory muscle use. GASTROINTESTINAL: Abdomen soft, non-tender, nondistended, normal active bowel sounds MUSCULOSKELETAL: No cyanosis, or edema. NEURO: CN II-XII grossly intact, no focal deficits, no slurring of speech - Constitutional no acute distress, chronically ill appearing Comments: somnolent - Routine HEENT Exam Head: Present: normocephalic, atraumatic Eye: Present: EOMI, PERRL - Routine Neck Exam Present: supple. Absent: JVD, lymphadenopathy, thyromegaly - Routine Respiratory Exam Present: CTA bilaterally. Absent: accessory muscle use - Routine Cardiovascular Exam Present: RRR - Routine Abdominal Exam Present: soft - Routine Extremities Exam Comments: left BKA Assessment and Plan - Assessment (1) ESRD (end stage renal disease) Code(s): N18.6 - End stage renal disease Status: Chronic Plan: Dialysis MWF. Consult IR for VasCath placement. Monitor fluid and electrolytes. She is s/p repair/excision of infected pseudoaneurysm of AVF Start patient on Renvela for hyperphosphatemia. (2) Hyperkalemia Code(s): E87.5 - Hyperkalemia Status: Acute Plan: Improved. Monitor. Should be on low potassium diet. If NPO, she should be on D10NS. (3) Altered mental status Code(s): R41.82 - Altered mental status, unspecified Status: Acute Plan: multifactorial. Could be due to uremia, but also could be due to sepsis. Supportive care. Monitor. (4) Renal mass Code(s): N28.89 - Other specified disorders of kidney and ureter Status: Acute Plan: Renal mass has grown in size, most likely malignancy. Urology note reviewed, to follow up after discharge. (5) Severe sepsis Code(s): A41.9 - Sepsis, unspecified organism; R65.20 - Severe sepsis without septic shock Status: Acute Plan: MRSA sepsis, endocarditis. MRI of the brain negative for septic emboli. She has mitral valve vegetation. On Vancomycin. s/p repair of infected pseudoaneurysm of AVF. (6) CAD (coronary artery disease) Code(s): I25.10 - Atherosclerotic heart disease of [place] coronary artery without angina pectoris Status: Chronic (7) PAD (peripheral artery disease) Code(s): I73.9 - Peripheral vascular disease, unspecified Status: Chronic Plan: s/p left BKA. (8) DM2 (diabetes mellitus, type 2) Code(s): E11.9 - Type 2 diabetes mellitus without complications Status: Chronic Plan: maintain blood glucose between 140 and 180 while hospitalized.
[2018-09-10] MEDS: Heparin - SQ 10,000 UNITS/ML Vial SQ SCH ×2 (05:16→17:15)
[2018-09-10] MEDS: Chlorhexidine Gluconate 2% 1 Pack (2 Cloths) TOPICAL SCH (05:16)
[2018-09-10 06:58] LABS: Calcium 8.1 mg/dL (8.5-10.1); Carbon Dioxide 27.1 meq/L (21.0-32.0); Vancomycin,Random 5.7 Comment
[2018-09-10 07:00] LABS: Potassium 6.1 meq/L (3.5-5.1)
[2018-09-10] MEDS: Famotidine PF Inj 20 MG/2 ML Vial IV.PUSH SCH ×2 (08:34→20:45)
[2018-09-10] MEDS: Senna/Docusate Sodium 8.6/50 MG Tablet PO SCH ×2 (08:34→20:45)
--- NOTE | 2018-09-10 10:12 | P.PNVS ---
Subjective Post Op Day #: 1 Procedure: repair of LUE PSA and drainge of abcess Objective Vital Signs / I&O: Vital Signs 09/09/18 14:00 09/09/18 15:46 09/09/18 16:00 Temperature 98.4 F Pulse Rate 90 90 98 H Respiratory Rate 15 18 Blood Pressure 124/65 Pulse Oximetry 98 09/09/18 18:00 09/09/18 19:08 09/09/18 20:00 Temperature 98 F Pulse Rate 95 H 96 H 104 H Respiratory Rate 18 26 H Blood Pressure 132/69 Pulse Oximetry 100 100 09/09/18 22:00 09/10/18 00:00 09/10/18 02:00 Temperature 98.5 F Pulse Rate 102 H 104 H 107 H Respiratory Rate 21 Blood Pressure 110/58 L Pulse Oximetry 100 09/10/18 04:00 09/10/18 06:00 09/10/18 07:19 Temperature 98.2 F Pulse Rate 109 H 111 H 110 H Respiratory Rate 22 18 Blood Pressure 105/60 Pulse Oximetry 100 09/10/18 07:20 09/10/18 08:00 09/10/18 09:00 Temperature 100.4 F H Pulse Rate 113 H 110 H Respiratory Rate 25 H Blood Pressure 103/56 L Pulse Oximetry 92 L 91 L Intake & Output 09/09/18 09/10/18 09/10/18 18:59 06:59 18:59 Intake Total 700 / 700 533.525 / 533.525 Output Total 50 / 50 0 / 0 Balance 650 / 650 533.525 / 533.525 Weight 47.5 kg Intake: IV 50 / 50 53.525 / 53.525 Heparin/NS PF Inj 500 ML @ 0 0 / 0 mls/hr .ROUTE .[facility] Rx#: [id number] DDAVP Inj 14.1 MCG In NS Inj 50 53.525 / 53.525 ML @ 214.1 mls/hr IV.SIG ONCE ONE Rx#:[id number] Ancef 2 GM Premix Inj 2 gm In 50 / 50 50 ml @ 0 mls/hr IV.SIG .STK- [facility] Rx#:[id number] Oral 400 / 400 480 / 480 Anesthesia Amount 250 / 250 Output: Urine 0 / 0 Estimated Blood Loss 50 / 50 Other: Date of Last Bowel Movement 1009/09/18 09/09/18 # Bowel Movements 0 # Incontinent Bowel Movements 1 Exam: confused Sitting up in bed in NAD Pain tolerated Pulses: palpable left radial pulse Left hand swelling decreased LUE dressing CDI, good thrill in the AVF Laboratory Results - last 24 hr 09/10/18 05:32 Sodium 130 L Potassium 6.1 H D Chloride 94 L Carbon Dioxide 27.1 Anion Gap 9 BUN 40 H Creatinine 5.11 H Estimated GFR 11 L Random Glucose 226 H Calcium 8.1 L Random Vancomycin 5.7 Microbiology 09/09/18 03:55 Aerobic Blood Culture - Preliminary Blood - Peripheral gram positive cocci Anaerobic Blood Culture - Preliminary gram positive cocci 09/09/18 03:47 Aerobic Blood Culture - Preliminary Blood - Peripheral gram positive cocci Anaerobic Blood Culture - Preliminary gram positive cocci 09/09/18 11:20 Fungal Smear - Final Wound - Arm No fungal elements seen 09/09/18 11:20 Gram Stain - Final Wound - Arm 09/06/18 11:20 Aerobic Blood Culture - Final Blood - Peripheral S. aureus MRSA Anaerobic Blood Culture - Final S. aureus MRSA Assessment and Plan - Assessment (1) Abscess of upper extremity Code(s): L02.419 - Cutaneous abscess of limb, unspecified Status: Acute (2) Toxic metabolic encephalopathy Code(s): G92 - Toxic encephalopathy Status: Acute (3) Severe sepsis Code(s): A41.9 - Sepsis, unspecified organism; R65.20 - Severe sepsis without septic shock Status: Acute (4) PAD (peripheral artery disease) Code(s): I73.9 - Peripheral vascular disease, unspecified Status: Chronic - Plan Right lower extremity peripheral vascular disease RLE duplex pending Left upper extremity abscess, infected hematoma. S/P excision of infected PSA. Doing well Needs PCath for HD, until wound healing
[2018-09-10 10:54] LABS: Hematocrit 31.2 % (35.0-46.0); Mean Corpuscular Hemoglobin 26.7 pg (27.0-34.0); Mean Corpuscular Volume 83.3 fL (80.0-100.0); Mean Platelet Volume 10.4 fL (7.0-11.0); Platelet Count 97 th/mm3 (150-450); Red Blood Count 3.74 mil/mm3 (4.00-5.30); Red Cell Distribution Width 19.5 % (11.6-17.2); White Blood Count 12.1 th/mm3 (4.0-11.0)
[2018-09-10] MEDS ORDERED: *Heparin 10,000 UNITS/10 ML Vial Periprocedural ONLY ONE (11:16)
[2018-09-10] MEDS ORDERED: Heparin Central Flush 100 UNIT/ML 5 ML Vial IV.FLUSH PRN (11:38)
--- NOTE | 2018-09-10 11:41 | P.RAD ---
Post Procedure Progress Note - Pre Procedure Diagnosis (1) ESRD (end stage renal disease) - Post Procedure Diagnosis (1) ESRD (end stage renal disease) - Procedure Information Procedure Date: 09/10/18 Supervising Radiologist: Trever Carballo Jr, MD Proceduralist/Assist: Patricia Melchor Estimated blood loss (mL): 0 Anesthesia: Local - Plan of Activity Patient to Unit: Nursing Unit Patient Condition: Good See PACS Report for procedural detail/treatment. CVAD Radiology Procedures right Hemodialysis Catheter Non-Tunneled Placement Device: dual lumen [place]: 14 - Additional Detail Findings: Pt has occluded RIJ. Fistula in left arm. Placed REJ Vascath. In good position and functions well. OK to use.
--- NOTE | 2018-09-10 13:14 | IR ---
EXAM DATE: 09/10/2018 12:00 AM EDT AGE/SEX: 58 years / Female INDICATIONS: End-stage renal disease. Need for hemodialysis access. Has a immature fistula involving the left arm. CLINICAL DATA: This is the patient's initial encounter. Patient reports that signs and symptoms have been present for 3 days and indicates a pain score of 0/10. MEDICAL/SURGICAL HISTORY: Cardiovascular disease. Chronic renal failure. Diabetes. CAD, Htn, hyperlipidemia, CHF, Sepsis Peripheral arterial bypass. BKA lt leg, coronary stents, repair of pseu doaneurysm of AVF left. COMPARISON: No prior exams available for comparison. FLUORO TIME (min): 1.0 IMAGE SERIES: 2 ACCESS SITE: Right external jugular vein DEVICE(S): 14 [place] double lumen 15 cm Schon catheter . . PROCEDURE : 1. Ultrasound guided venipuncture. 2. Fluoroscopic guidance. 3. Central line placement. The risks, benefits and alternatives to the procedure were explained and verbal and written consent w as obtained. The site was prepped in sterile fashion. Full sterile technique was used, including ca p, mask, sterile gloves and gown and a large sterile sheet. Hand hygiene and 2% chlorhexidine prep w as utilized per protocol for cutaneous antisepsis with appropriate dry time for site. Sterile gel an d sterile probe cover were utilized for ultrasound guidance. Ultrasound images show a very small david roger internal jugular vein low within the neck with the more cephalad component occluded. A decent jennifer iber external jugular vein is noted. The skin and subcutaneous tissues were infiltrated with local anesthetic solution. Under direct sonog raphic guidance a 21-gauge needle was passed into the internal jugular vein within its most inferior aspect. Attempts at passing a wire centrally were unsuccessful. This vein is occluded. Attention was then turned to the external jugular vein. Access to this vein was performed in its most inferior aspe ct right before it drains into the subclavian vein. A suitable site above the vein was selected with ultrasound and fluoroscopic guidance. A small incision was made. The vein was accessed under direct ultrasound visualization using the micropuncture technique. The micropuncture set was exchanged for a 0.035 wire. The tract was dilated. The catheter was advanced into position under direct fluorosc opic visualization, and was advanced with the tip at the junction of the superior vena cava and rt at rium. The catheter was fixed in place with suture and a sterile dressing was applied. The patient tolerated the procedure well and there were no complications. CONCLUSION: 1. Uncomplicated line placement as above. The patient has an occluded right internal jugular vein. T his catheter was placed in the external jugular vein. Electronically signed by: Trever Carballo MD 09/10/2018 1:13 PM EDT
[2018-09-10] MEDS: Heparin 10,000 UNITS/10 ML Vial (for IV use) OTHER PRN (14:22)
[2018-09-10] MEDS: Vancomycin Inj 1,000 MG in Sodium Chlor 0.9% Inj 250 ML IV.SIG SCH (14:36)
--- NOTE | 2018-09-10 14:48 | P.PNIM ---
Subjective Interval history: Patient complains of some pain at her surgical site from her left AV repair performed yesterday. She says that she is still weak. Her request is to have a fan in her room. She does feel stable enough to go to a regular floor. Physical Exam Vital signs: Vital Signs 09/09/18 15:46 09/09/18 16:00 09/09/18 18:00 Temperature 98.4 F Pulse Rate 90 98 H 95 H Respiratory Rate 15 18 Blood Pressure 124/65 Pulse Oximetry 98 09/09/18 19:08 09/09/18 20:00 09/09/18 22:00 Temperature 98 F Pulse Rate 96 H 104 H 102 H Respiratory Rate 18 26 H Blood Pressure 132/69 Pulse Oximetry 100 100 09/10/18 00:00 09/10/18 02:00 09/10/18 04:00 Temperature 98.5 F 98.2 F Pulse Rate 104 H 107 H 109 H Respiratory Rate 21 22 Blood Pressure 110/58 L 105/60 Pulse Oximetry 100 100 09/10/18 06:00 09/10/18 07:19 09/10/18 07:20 Temperature Pulse Rate 111 H 110 H Respiratory Rate 18 Blood Pressure Pulse Oximetry 92 L 09/10/18 08:00 09/10/18 09:00 09/10/18 10:00 Temperature 100.4 F H Pulse Rate 113 H 110 H 108 H Respiratory Rate 25 H 22 17 Blood Pressure 103/56 L 103/57 L 106/58 L Pulse Oximetry 91 L 100 100 09/10/18 10:53 09/10/18 11:00 09/10/18 11:58 Temperature Pulse Rate 104 H 104 H 101 H Respiratory Rate 23 23 18 Blood Pressure 110/61 111/64 102/59 L Pulse Oximetry 100 100 100 09/10/18 12:00 Temperature Pulse Rate 101 H Respiratory Rate 39 H Blood Pressure 102/59 L Pulse Oximetry 100 Intake & Output 09/09/18 09/10/18 09/10/18 18:59 06:59 18:59 Intake Total 700 / 700 533.525 / 533.525 Output Total 50 / 50 0 / 0 Balance 650 / 650 533.525 / 533.525 Weight 47.5 kg Intake: IV 50 / 50 53.525 / 53.525 Heparin/NS PF Inj 500 ML @ 0 0 / 0 mls/hr .ROUTE .[facility] Rx#: [id number] DDAVP Inj 14.1 MCG In NS Inj 50 53.525 / 53.525 ML @ 214.1 mls/hr IV.SIG ONCE ONE Rx#:[id number] Ancef 2 GM Premix Inj 2 gm In 50 / 50 50 ml @ 0 mls/hr IV.SIG .STK- [facility] ONE Rx#:[id number] Oral 400 / 400 480 / 480 Anesthesia Amount 250 / 250 Output: Urine 0 / 0 Estimated Blood Loss 50 / 50 Other: Date of Last Bowel Movement 09/09/18 09/09/18 09/09/18 # Bowel Movements 0 # Incontinent Bowel Movements 1 Narrative: GENERAL: AAOx3, no acute distress, generalized weakness SKIN: Warm and dry. No rashes, gauze overlying surgical site of left AV repair HEAD: Atruamtic, normocephalic. EYES: No scleral icterus. No injection or drainage. ENT: Moist mucous membranes, patent nares, no erythema of oropharynx. NECK: Supple, trachea midline. No JVD or lymphadenopathy. Normal thyroid. CARDIOVASCULAR: Regular rate and rhythm. No murmurs, gallops, or rubs. RESPIRATORY: Breath sounds clear equal bilaterally. No crackles or wheezes. No accessory muscle use. GASTROINTESTINAL: Abdomen soft, non-tender, nondistended, normal active bowel sounds MUSCULOSKELETAL: No cyanosis, or edema. NEURO: CN II-XII grossly intact, no focal deficits, no slurring of speech Results - Labs CBC & Chem 7: 09/10/18 10:18 09/10/18 05:32 Laboratory Results - last 24 hr 09/10/18 09/10/18 05:32 10:18 WBC 12.1 H RBC 3.74 L Hgb 10.0 L D Hct 31.2 L MCV 83.3 MCH 26.7 L MCHC 32.0 RDW 19.5 H Plt Count 97 L MPV 10.4 Sodium 130 L Potassium 6.1 H D Chloride 94 L Carbon Dioxide 27.1 Anion Gap 9 BUN 40 H Creatinine 5.11 H Estimated GFR 11 L Random Glucose 226 H Calcium 8.1 L Random Vancomycin 5.7 Microbiology 09/09/18 11:20 Wound - Arm Gram Stain - Final 09/09/18 11:20 Wound - Arm Wound Culture - Preliminary S. aureus MRSA 09/09/18 11:20 Wound - Arm Fungal Smear - Final No fungal elements seen 09/09/18 03:55 Blood - Peripheral Aerobic Blood Culture - Preliminary gram positive cocci 09/09/18 03:55 Blood - Peripheral Anaerobic Blood Culture - Preliminary gram positive cocci 09/09/18 03:47 Blood - Peripheral Aerobic Blood Culture - Preliminary gram positive cocci 09/09/18 03:47 Blood - Peripheral Anaerobic Blood Culture - Preliminary gram positive cocci - Imaging Impressions Catheter Placement 09/10/18 00:00 CONCLUSION: 1. Uncomplicated line placement as above. The patient has an occluded right internal jugular vein. This catheter was placed in the external jugular vein. 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 Patient had normal CT of the brain on admission Stable for transfer to [facility] MRSA sepsis Both blood cultures and wound culture returned positive for MRSA Continuing renally dosed vancomycin, Zosyn discontinued by infectious disease Ischemic right foot, vascular surgery consulted by infectious disease Appreciate infectious disease consult Appreciate vascular surgery consult AV fistula repair 09/09/18 Patient underwent repair of left AV fistula yesterday Some normal amounts of pain postop Surgical dressing appears clean dry and intact End-stage renal disease Patient missed 2 dialysis treatments Continue Thursday schedule Patient underwent surgery 09/09/18 for revision of her AV graft Appreciate nephrology consult Pulmonary Edema Continue with dialysis for fluid management Duo nebs every 6 hours scheduled and as needed Encourage incentive spirometry Right renal mass Urology consulted for evaluation Recommendation is likely nephrectomy by Dr. Ramses Perera Outpatient follow-up recommended following discharge Appreciate urology consult Type 2 diabetes Accu-Cheks with sliding scale insulin coverage Diabetic diet h/o CAD LAD stent 06/08 Chronic systolic CHF, EF equals 30-35% in 2017, severe TR h/o PAD left BKA, iliofemoral bypass, right femoropopliteal bypass November 2017 Continue baby aspirin DVT Prophylaxis Heparin
--- NOTE | 2018-09-10 15:35 | US ---
EXAM DATE: 09/10/2018 12:00 AM EDT AGE/SEX: 58 years / Female INDICATIONS: Status post right iliofemoral, right femoral to right popliteal artery bypass. CLINICAL DATA: This is the patient's initial encounter. Patient reports that signs and symptoms have been present for 1 day and indicates a pain score of 0/10. MEDICAL/SURGICAL HISTORY: . Diabetic. Gangrene. ESRD. . AV fistula. Left below knee amputat ion. Right leg femoral bypass. COMPARISON: . TECHNIQUE: Unilateral lower extremity ultrasound of the arterial vessels was performed. Moss-scale, Color Doppler, and Spectral Doppler techniques were utilized. MEASUREMENTS: PEAK SYSTOLIC VELOCITIES: RIGHT: Bypass graft: Patient reportedly has a right iliofemoral fem-popliteal bypass grafts. Both grafts zoltan ear to be occluded. External Iliac Artery:__36.4 cm/sec Monophasic Common Femoral Artery:__46.2 cm/sec Monophasic Superficial Femoral Artery:__Occluded cm/sec Profunda Femoris Artery:__104.3 cm/sec Monophasic Popliteal Artery:__Occluded cm/sec Posterior Tibial Artery:__Occluded Anterior Tibial Artery:__Occluded Peroneal Artery:__Occluded FINDINGS: Right Lower Extremity Other: None. CONCLUSION: 1. Right iliofemoral and femoral popliteal bypass grafts appear to be occluded. 2. Occlusion of the [place] superficial femoral and popliteal arteries. Proximal trifurcation vessels also appear to be occluded. 3. Monophasic signal in the right external iliac, common femoral and profunda femoral arteries. 4. CTA abdomen and runoff could be performed for anatomic characterization if clinically warranted. Electronically signed by: Aristeo Mckenzie MD 09/10/2018 3:34 PM EDT
--- NOTE | 2018-09-10 16:07 | P.PNNP ---
Subjective Interval history: Seen during dialysis. Confusion has improved. She has a right IJ VasCath for dialysis. s/p excision of infected pseudoaneurysm on 09/09/18. She has MRSA sepsis, mitral valve endocarditis. Leukocytosis has improved. Physical Exam Vital signs: Vital Signs 09/09/18 18:00 09/09/18 19:08 09/09/18 20:00 Temperature 98 F Pulse Rate 95 H 96 H 104 H Respiratory Rate 18 26 H Blood Pressure 132/69 Pulse Oximetry 100 100 09/09/18 22:00 09/10/18 00:00 09/10/18 02:00 Temperature 98.5 F Pulse Rate 102 H 104 H 107 H Respiratory Rate 21 Blood Pressure 110/58 L Pulse Oximetry 100 09/10/18 04:00 09/10/18 06:00 09/10/18 07:19 Temperature 98.2 F Pulse Rate 109 H 111 H 110 H Respiratory Rate 22 18 Blood Pressure 105/60 Pulse Oximetry 100 09/10/18 07:20 09/10/18 08:00 09/10/18 09:00 Temperature 100.4 F H Pulse Rate 113 H 110 H Respiratory Rate 25 H 22 Blood Pressure 103/56 L 103/57 L Pulse Oximetry 92 L 91 L 100 09/10/18 10:00 09/10/18 10:53 09/10/18 11:00 Temperature Pulse Rate 108 H 104 H 104 H Respiratory Rate 17 23 23 Blood Pressure 106/58 L 110/61 111/64 Pulse Oximetry 100 100 100 09/10/18 11:58 09/10/18 12:00 09/10/18 15:00 Temperature Pulse Rate 101 H 101 H 97 H Respiratory Rate 18 39 H 18 Blood Pressure 102/59 L 102/59 L Pulse Oximetry 100 100 Intake & Output 09/09/18 09/10/18 09/10/18 18:59 06:59 18:59 Intake Total 700 / 700 533.525 / 533.525 Output Total 50 / 50 0 / 0 Balance 650 / 650 533.525 / 533.525 Weight 47.5 kg Intake: IV 50 / 50 53.525 / 53.525 Heparin/NS PF Inj 500 ML @ 0 0 / 0 mls/hr .ROUTE .[facility] ONE Rx#: [id number] DDAVP Inj 14.1 MCG In NS Inj 50 53.525 / 53.525 ML @ 214.1 mls/hr IV.SIG ONCE ONE Rx#:[id number] Ancef 2 GM Premix Inj 2 gm In 50 / 50 50 ml @ 0 mls/hr IV.SIG .[facility]- MED ONE Rx#:[id number] Oral 400 / 400 480 / 480 Anesthesia Amount 250 / 250 Output: Urine 0 / 0 Estimated Blood Loss 50 / 50 Other: Date of Last Bowel Movement 09/09/18 09/09/18 09/09/18 # Bowel Movements 0 # Incontinent Bowel Movements 1 Narrative: GENERAL: very frail, emaciated lady. Lethargic, SKIN: Warm and dry. No rashes, gauze overlying surgical site of left AV repair HEAD: Atruamtic, normocephalic. EYES: No scleral icterus. No injection or drainage. ENT: Moist mucous membranes, patent nares, no erythema of oropharynx. NECK: Supple, trachea midline. No JVD or lymphadenopathy. Normal thyroid. CARDIOVASCULAR: Regular rate and rhythm. RESPIRATORY: Breath sounds clear equal bilaterally. No crackles or wheezes. No accessory muscle use. GASTROINTESTINAL: Abdomen soft, non-tender, nondistended, normal active bowel sounds MUSCULOSKELETAL: s/p left BKA. Chronically ischemic right leg and foot, DP pulse not felt. Assessment and Plan - Assessment (1) ESRD (end stage renal disease) Code(s): N18.6 - End stage renal disease Status: Chronic Plan: Dialysis MWF. Consult IR for VasCath placement. Seen during dialysis today. BFR 300 ml/min. Vascath cannulated. UF goal about 2 liters. On 1K Monitor fluid and electrolytes. Hyperkalemic today. If she is NPO, start D10NS at 20 ml/hour. She is s/p repair/excision of infected pseudoaneurysm of AVF Started patient on Renvela for hyperphosphatemia. (2) Hyperkalemia Code(s): E87.5 - Hyperkalemia Status: Acute Plan: Improved. Monitor. Should be on low potassium diet. If NPO, she should be on D10NS. (3) Altered mental status Code(s): R41.82 - Altered mental status, unspecified Status: Acute Plan: multifactorial. Could be due to uremia, but also could be due to sepsis. Supportive care. Monitor. Improving. (4) Renal mass Code(s): N28.89 - Other specified disorders of kidney and ureter Status: Acute Plan: Renal mass has grown in size, most likely malignancy. Urology note reviewed, to follow up after discharge. (5) Severe sepsis Code(s): A41.9 - Sepsis, unspecified organism; R65.20 - Severe sepsis without septic shock Status: Acute Plan: MRSA sepsis, endocarditis. MRI of the brain negative for septic emboli. She has mitral valve vegetation. On Vancomycin. s/p excision of infected pseudoaneurysm of AVF. (6) CAD (coronary artery disease) Code(s): I25.10 - Atherosclerotic heart disease of [place] coronary artery without angina pectoris Status: Chronic (7) PAD (peripheral artery disease) Code(s): I73.9 - Peripheral vascular disease, unspecified Status: Chronic Plan: s/p left BKA. Poor circulation of right lower extremity. (8) DM2 (diabetes mellitus, type 2) Code(s): E11.9 - Type 2 diabetes mellitus without complications Status: Chronic Plan: maintain blood glucose between 140 and 180 while hospitalized. - Attending Attestation This lady has very poor prognosis.
--- NOTE | 2018-09-10 20:02 | P.PNID ---
Subjective Remarks: sp repair of infected psedoaneurism of AV fistula all blood clx are + for MRSA 2 D echo with MV vegetation afebrile Antibiotics: vancomycin Allergies/Adverse Reactions: Allergies latex Allergy (Severe, Unverified 09/06/18 11:19) Edema RASH Objective Vital Signs 09/09/18 20:00 09/09/18 22:00 09/10/18 00:00 Temperature 98 F 98.5 F Pulse Rate 104 H 102 H 104 H Respiratory Rate 26 H 21 Blood Pressure 132/69 110/58 L Pulse Oximetry 100 100 09/10/18 02:00 09/10/18 04:00 09/10/18 06:00 Temperature 98.2 F Pulse Rate 107 H 109 H 111 H Respiratory Rate 22 Blood Pressure 105/60 Pulse Oximetry 100 09/10/18 07:19 09/10/18 07:20 09/10/18 08:00 Temperature 100.4 F H Pulse Rate 110 H 113 H Respiratory Rate 18 25 H Blood Pressure 103/56 L Pulse Oximetry 92 L 91 L 09/10/18 09:00 09/10/18 10:00 09/10/18 10:53 Temperature Pulse Rate 110 H 108 H 104 H Respiratory Rate 22 17 23 Blood Pressure 103/57 L 106/58 L 110/61 Pulse Oximetry 100 100 100 09/10/18 11:00 09/10/18 11:58 09/10/18 12:00 Temperature Pulse Rate 104 H 101 H 101 H Respiratory Rate 23 18 39 H Blood Pressure 111/64 102/59 L 102/59 L Pulse Oximetry 100 100 100 09/10/18 14:00 09/10/18 15:00 09/10/18 16:00 Temperature 98.8 F Pulse Rate 101 H 97 H 92 H Respiratory Rate 18 10 L Blood Pressure 114/59 L Pulse Oximetry 100 09/10/18 18:00 09/10/18 19:11 Temperature Pulse Rate 95 H Respiratory Rate Blood Pressure Pulse Oximetry 99 Intake & Output 09/10/18 09/10/18 09/11/18 06:59 18:59 06:59 Intake Total 533.525 / 533.525 370 / 370 Output Total 0 / 0 1999 / 1999 Balance 533.525 / 533.525 -1630 / -1630 Weight 47.5 kg Intake: IV 53.525 / 53.525 250 / 250 DDAVP Inj 14.1 MCG In NS Inj 50 53.525 / 53.525 ML @ 214.1 mls/hr IV.SIG ONCE ONE Rx#:[id number] Vancomycin Inj 1,000 MG In NS 250 / 250 Inj 250 ML @ 250 mls/hr IV.SIG WITH DIALYSIS [facility] Rx#:[id number] Oral 480 / 480 120 / 120 Output: Urine 0 / 0 0 / 0 Hemodialysis Amount 1999 Other: Date of Last Bowel Movement 09/09/18 09/09/18 # Bowel Movements 0 0 09/09/18 11:20 Wound - Arm Acid Fast Bacilli Smear - Final No acid fast bacilli seen 09/09/18 11:20 Wound - Arm Mycobacterial Culture - Pending 09/09/18 11:20 Wound - Arm Gram Stain - Final 09/09/18 11:20 Wound - Arm Wound Culture - Preliminary S. aureus MRSA 09/09/18 11:20 Wound - Arm Fungal Smear - Final No fungal elements seen 09/09/18 11:20 Wound - Arm Fungal Culture - Pending 09/09/18 03:55 Blood - Peripheral Aerobic Blood Culture - Preliminary gram positive cocci 09/09/18 03:55 Blood - Peripheral Anaerobic Blood Culture - Preliminary gram positive cocci 09/09/18 03:47 Blood - Peripheral Aerobic Blood Culture - Preliminary gram positive cocci 09/09/18 03:47 Blood - Peripheral Anaerobic Blood Culture - Preliminary gram positive cocci 09/06/18 11:20 Blood - Peripheral Aerobic Blood Culture - Final S. aureus MRSA 09/06/18 11:20 Blood - Peripheral Anaerobic Blood Culture - Final S. aureus MRSA 09/06/18 11:28 Blood - Peripheral Aerobic Blood Culture - Final S. aureus MRSA 09/06/18 11:28 Blood - Peripheral Anaerobic Blood Culture - Final S. aureus MRSA Lab - Hematology Results 09/09/18 09/10/18 03:47 10:18 WBC 14.5 H 12.1 H RBC 4.84 3.74 L Hgb 13.1 10.0 L D Hct 40.0 31.2 L MCV 82.6 83.3 MCH 27.0 26.7 L MCHC 32.7 32.0 RDW 19.5 H 19.5 H Plt Count 117 L 97 L MPV 10.6 10.4 Lab - Chemistry Results 09/08/18 09/09/18 09/10/18 23:14 03:47 05:32 Sodium 137 130 L Potassium 3.9 6.1 H D Chloride 96 L 94 L Carbon Dioxide 29.5 27.1 Anion Gap 12 9 BUN 27 H 40 H Creatinine 4.00 H 5.11 H Estimated GFR 14 L 11 L POC Glucose 180 H Random Glucose 186 H 226 H Calcium 8.8 8.1 L Imaging: ITS Impressions Abdomen/Pelvis CT 09/06/18 11:10 CONCLUSION: 1. Moderate stool in the rectum. No dilated loops of bowel to suggest obstruction. 2. Persistent large solid mass arising from the superior pole the right kidney measuring up to 6.2 cm. This is a renal cell carcinoma until proven otherwise. 3. End-stage appearing kidneys bilaterally. 4. Prominent diffuse vascular calcifications. Head CT 09/06/18 11:10 CONCLUSION: 1. Atrophy and atherosclerosis. . Chest X-Ray 09/07/18 06:00 CONCLUSION: Cardiomegaly and findings of congestive heart failure. There has been no significant change when compared to the prior exam. Head MRI 09/08/18 00:00 CONCLUSION: 1. No acute findings. No recent infarct. Mild chronic white matter ischemic changes in the periventricular region. Upper Extremity Ultrasound 09/09/18 00:00 CONCLUSION: Mixed echogenicity collection around the proximal fistula outflow in the medial left upper arm. Arterial Ultrasound 09/10/18 00:00 CONCLUSION: 1. Right iliofemoral and femoral popliteal bypass grafts appear to be occluded. 2. Occlusion of the [place] superficial femoral and popliteal arteries. Proximal trifurcation vessels also appear to be occluded. 3. Monophasic signal in the right external iliac, common femoral and profunda femoral arteries. 4. CTA abdomen and runoff could be performed for anatomic characterization if clinically warranted. Catheter Placement 09/10/18 00:00 CONCLUSION: 1. Uncomplicated line placement as above. The patient has an occluded right internal jugular vein. This catheter was placed in the external jugular vein. Physical Exam: GENERAL: NAD SKIN: Warm and dry. HEAD: Atraumatic. Normocephalic. EYES: Pupils equal and round. No scleral icterus. No injection or drainage. ENT: No nasal bleeding or discharge. Mucous membranes pink and moist. NECK: Trachea midline. No JVD. CARDIOVASCULAR: Regular rate and rhythm. + murmur 3/6 systolic RESPIRATORY: No accessory muscle use. Clear to auscultation. Breath sounds equal bilaterally. GASTROINTESTINAL: Abdomen soft, non-tender, nondistended. Hepatic and splenic margins not palpable. MUSCULOSKELETAL: Extremities without clubbing, cyanosis, or edema. L BKA cold to touch R foot, not refilling L UE I dressing in place NEUROLOGICAL: Awake and alert. No obvious cranial nerve deficits. Normal, coherent speech appears to move all extremeties to command PSYCHIATRIC: calm and cooperative LINES: vascath in place R chest Assessment and Plan - Plan MRSA sepsis: souce MV endocarditis MV endocartditis AMS no septic emboli HD, non comliance came with electrolytes imbalance Ischemic R foot - vasc surgery ff no acute ischemia h/o RLE ileofemoral and fem pop bypass in Feb 2018 Infected psuedoaneurism of R UE AVF - sp repair cont vancomycin w HD keep trough levels 15-20 Permacath can be placed after blood is sterile Gwendolyn Mcnamara RN
[2018-09-10] MEDS: Morphine Inj 4 MG/ML Vial IV.PUSH PRN (20:45)
[2018-09-11] MEDS: Heparin - SQ 10,000 UNITS/ML Vial SQ SCH ×2 (06:49→19:16)
[2018-09-11] MEDS: Chlorhexidine Gluconate 2% 1 Pack (2 Cloths) TOPICAL SCH (06:49)
[2018-09-11] MEDS: Famotidine PF Inj 20 MG/2 ML Vial IV.PUSH SCH ×3 (09:11→23:59)
[2018-09-11] MEDS: Senna/Docusate Sodium 8.6/50 MG Tablet PO SCH ×2 (09:12→20:07)
[2018-09-11] MEDS ORDERED: Dextrose 50% in Water 50 ML Vial IV.PUSH PRN (09:29)
[2018-09-11 09:41] LABS: Hematocrit 35.1 % (35.0-46.0); Hemoglobin 11.3 gm/dL (11.6-15.3); Mean Corpuscular HGB Conc 32.3 % (32.0-36.0); Mean Corpuscular Hemoglobin 26.9 pg (27.0-34.0); Mean Corpuscular Volume 83.3 fL (80.0-100.0); Mean Platelet Volume 9.9 fL (7.0-11.0); Platelet Count 114 th/mm3 (150-450); Red Blood Count 4.21 mil/mm3 (4.00-5.30); Red Cell Distribution Width 19.3 % (11.6-17.2); White Blood Count 12.3 th/mm3 (4.0-11.0)
[2018-09-11 10:01] LABS: Calcium 8.4 mg/dL (8.5-10.1); Carbon Dioxide 26.8 meq/L (21.0-32.0); Potassium 4.3 meq/L (3.5-5.1)
--- NOTE | 2018-09-11 11:05 | P.PNVS ---
Subjective Post Op Day #: 2 Procedure: repair of LUE PSA and drainge of abcess Subjective/Hospital Course: Patient is more awake this morning confusion is resolving. Complains of left upper extremity pain at the incision site that is controlled with pain medications. Objective Vital Signs / I&O: Vital Signs 09/10/18 11:00 09/10/18 11:58 09/10/18 12:00 Temperature Pulse Rate 104 H 101 H 101 H Respiratory Rate 23 18 39 H Blood Pressure 111/64 102/59 L 102/59 L Pulse Oximetry 100 100 100 09/10/18 14:00 09/10/18 15:00 09/10/18 16:00 Temperature 98.8 F Pulse Rate 101 H 97 H 92 H Respiratory Rate 18 10 L Blood Pressure 114/59 L Pulse Oximetry 100 09/10/18 18:00 09/10/18 19:11 09/10/18 20:00 Temperature 99.2 F Pulse Rate 95 H 93 H Respiratory Rate 16 Blood Pressure 121/70 Pulse Oximetry 99 100 09/10/18 22:00 09/11/18 00:00 09/11/18 02:00 Temperature 98.0 F Pulse Rate 92 H 87 86 Respiratory Rate 13 Blood Pressure 115/65 Pulse Oximetry 100 09/11/18 04:00 09/11/18 06:00 09/11/18 08:00 Temperature 97.7 F 97.7 F Pulse Rate 87 87 87 Respiratory Rate 11 L 14 Blood Pressure 123/70 116/69 Pulse Oximetry 100 100 09/11/18 09:00 09/11/18 10:00 Temperature Pulse Rate 86 87 Respiratory Rate Blood Pressure Pulse Oximetry Intake & Output 09/10/18 09/11/18 09/11/18 18:59 06:59 18:59 Intake Total 370 / 370 700 / 700 Output Total 1999 0 / 0 Balance -1630 / -1630 700 / 700 Weight 49.5 kg Intake: IV 250 / 250 Vancomycin Inj 1,000 MG In NS 250 / 250 Inj 250 ML @ 250 mls/hr IV.SIG WITH DIALYSIS [facility] Rx#:[id number] Oral 120 / 120 700 / 700 Output: Urine 0 / 0 0 / 0 Stool 0 / 0 Urine/Stool Mix 0 / 0 Hemodialysis Amount 1999 Other: Post Void Residual 0 # Voids 0 # Incontinent Voids 0 # Urine Diapers 0 Date of Last Bowel Movement 09/09/18 09/09/18 09/09/18 # Bowel Movements 0 0 # Incontinent Bowel Movements 0 Exam: Left upper extremity wound clean dry intact. Good thrill into the fistula with a palpable radial pulse. Left BKA stump with necrosis at the mid aspect of the wound. There is mild fibrinous, purulent discharge. Laboratory Results - last 24 hr 09/10/18 09/11/18 09/11/18: 08:30 08:39 WBC 12.1 H 12.3 H RBC 3.74 L 4.21 Hgb 10.0 L D 11.3 L Hct 31.2 L 35.1 MCV 83.3 83.3 MCH 26.7 L 26.9 L MCHC 32.0 32.3 RDW 19.5 H 19.3 H Plt Count 97 L 114 L MPV 10.4 9.9 Sodium 135 L Potassium 4.3 D Chloride 97 L Carbon Dioxide 26.8 Anion Gap 11 BUN 28 H Creatinine 3.70 H Estimated GFR 15 L Random Glucose 194 H Calcium 8.4 L Microbiology 09/09/18 11:20 Gram Stain - Final Wound - Arm Wound Culture - Final S. aureus MRSA 09/09/18 11:20 Acid Fast Bacilli Smear - Final Wound - Arm No acid fast bacilli seen 09/09/18 11:20 Fungal Smear - Final Wound - Arm No fungal elements seen 09/09/18 03:55 Aerobic Blood Culture - Preliminary Blood - Peripheral gram positive cocci Anaerobic Blood Culture - Preliminary gram positive cocci 09/09/18 03:47 Aerobic Blood Culture - Preliminary Blood - Peripheral gram positive cocci Anaerobic Blood Culture - Preliminary gram positive cocci Assessment and Plan - Assessment (1) Abscess of upper extremity Code(s): L02.419 - Cutaneous abscess of limb, unspecified Status: Acute (2) Toxic metabolic encephalopathy Code(s): G92 - Toxic encephalopathy Status: Acute (3) Severe sepsis Code(s): A41.9 - Sepsis, unspecified organism; R65.20 - Severe sepsis without septic shock Status: Acute (4) PAD (peripheral artery disease) Code(s): I73.9 - Peripheral vascular disease, unspecified Status: Chronic - Plan Left upper extremity abscess, infected hematoma. S/P excision of infected PSA. Doing well Wound culture positive for MRSA. Appreciate Dr. Noemí input. Vas-Cath was placed, permacath when bacteremia resolves. Right lower extremity peripheral vascular disease RLE duplex reviewed. Occluded iliofemoral, femoropopliteal bypass. Patient has monophasic right dorsalis pedis signal. She denies any rest pain, she does not have any open wounds No signs of acute limb ischemia. Patient will need to be reevaluated after resolution of her acute illness. Currently she is nonambulatory. She may need a diagnostic angiogram and redo bypass if developed critical limb ischemia. LBKA stump Amputation was performed in outlying facility. I noted that the midportion of the incision is necrotic. The tibia appears to be along and may need foreshortened in the future to enhance wound healing. I doubt osteomyelitis or deep abscess pockets.
--- NOTE | 2018-09-11 11:14 | P.PNIM ---
Subjective Interval history: 58-year-old female admitted for altered mental status secondary to sepsis versus uremia, she missed 2 dialysis treatments and was fluid overloaded on admission in addition to her altered mental status. She continues to improve with her mental status and her energy each day. Today she is requesting more solid food. Physical Exam Vital signs: Vital Signs 09/10/18 11:58 09/10/18 12:00 09/10/18 14:00 Temperature Pulse Rate 101 H 101 H 101 H Respiratory Rate 18 39 H Blood Pressure 102/59 L 102/59 L Pulse Oximetry 100 100 09/10/18 15:00 09/10/18 16:00 09/10/18 18:00 Temperature 98.8 F Pulse Rate 97 H 92 H 95 H Respiratory Rate 18 10 L Blood Pressure 114/59 L Pulse Oximetry 100 09/10/18 19:11 09/10/18 20:00 09/10/18 22:00 Temperature 99.2 F Pulse Rate 93 H 92 H Respiratory Rate 16 Blood Pressure 121/70 Pulse Oximetry 99 100 09/11/18 00:00 09/11/18 02:00 09/11/18 04:00 Temperature 98.0 F 97.7 F Pulse Rate 87 86 87 Respiratory Rate 13 11 L Blood Pressure 115/65 123/70 Pulse Oximetry 100 100 09/11/18 06:00 09/11/18 08:00 09/11/18 09:00 Temperature 97.7 F Pulse Rate 87 87 86 Respiratory Rate 14 Blood Pressure 116/69 Pulse Oximetry 100 09/11/18 10:00 Temperature Pulse Rate 87 Respiratory Rate Blood Pressure Pulse Oximetry Intake & Output 09/10/18 09/11/18 09/11/18 18:59 06:59 18:59 Intake Total 370 / 370 700 / 700 Output Total 1999 0 / 0 Balance -1630 / -1630 700 / 700 Weight 49.5 kg Intake: IV 250 / 250 Vancomycin Inj 1,000 MG In NS 250 / 250 Inj 250 ML @ 250 mls/hr IV.SIG WITH DIALYSIS [facility] Rx#:[id number] Oral 120 / 120 700 / 700 Output: Urine 0 / 0 0 / 0 Stool 0 / 0 Urine/Stool Mix 0 / 0 Hemodialysis Amount 1999 Other: Post Void Residual 0 # Voids 0 # Incontinent Voids 0 # Urine Diapers 0 Date of Last Bowel Movement 09/09/18 09/09/18 09/09/18 # Bowel Movements 0 0 # Incontinent Bowel Movements 0 Narrative: GENERAL: AAOx3, no acute distress, generally weak, cachectic SKIN: Warm and dry. Abrasions on upper and lower extremities, left stump has drainage HEAD: Atruamtic, normocephalic. EYES: No scleral icterus. No injection or drainage. ENT: Moist mucous membranes, patent nares, no erythema of oropharynx. NECK: Supple, trachea midline. No JVD or lymphadenopathy. Normal thyroid. CARDIOVASCULAR: Regular rate and rhythm. No murmurs, gallops, or rubs. RESPIRATORY: Scattered congestive sounds, slight diminished bases. No crackles or wheezes. No accessory muscle use. GASTROINTESTINAL: Abdomen soft, non-tender, nondistended, normal active bowel sounds MUSCULOSKELETAL: No cyanosis, or edema. NEURO: CN II-XII grossly intact, no focal deficits, no slurring of speech Results - Labs CBC & Chem 7: 09/11/18 08:30 09/11/18 08:39 Laboratory Results - last 24 hr 09/11/18 09/11/18 08:30 08:39 WBC 12.3 H RBC 4.21 Hgb 11.3 L Hct 35.1 MCV 83.3 MCH 26.9 L MCHC 32.3 RDW 19.3 H Plt Count 114 L MPV 9.9 Sodium 135 L Potassium 4.3 D Chloride 97 L Carbon Dioxide 26.8 Anion Gap 11 BUN 28 H Creatinine 3.70 H Estimated GFR 15 L Random Glucose 194 H Calcium 8.4 L Microbiology 09/09/18 11:20 Wound - Arm Gram Stain - Final 09/09/18 11:20 Wound - Arm Wound Culture - Final S. aureus MRSA 09/09/18 11:20 Wound - Arm Acid Fast Bacilli Smear - Final No acid fast bacilli seen 09/09/18 11:20 Wound - Arm Fungal Smear - Final No fungal elements seen 09/09/18 03:55 Blood - Peripheral Aerobic Blood Culture - Preliminary gram positive cocci 09/09/18 03:55 Blood - Peripheral Anaerobic Blood Culture - Preliminary gram positive cocci 09/09/18 03:47 Blood - Peripheral Aerobic Blood Culture - Preliminary gram positive cocci 09/09/18 03:47 Blood - Peripheral Anaerobic Blood Culture - Preliminary gram positive cocci - Imaging Impressions Arterial Ultrasound 09/10/18 00:00 CONCLUSION: 1. Right iliofemoral and femoral popliteal bypass grafts appear to be occluded. 2. Occlusion of the [place] superficial femoral and popliteal arteries. Proximal trifurcation vessels also appear to be occluded. 3. Monophasic signal in the right external iliac, common femoral and profunda femoral arteries. 4. CTA abdomen and runoff could be performed for anatomic characterization if clinically warranted. Catheter Placement 09/10/18 00:00 CONCLUSION: 1. Uncomplicated line placement as above. The patient has an occluded right internal jugular vein. This catheter was placed in the external jugular vein. Assessment and Plan - Plan Metabolic encephalopathy Patient has history of ESRD and missed 2 dialysis treatments, came in altered and fluid overloaded She remains alert and oriented x3, still very tired, but requesting more solid food today Consider uremia versus sepsis as underlying dray driver for encephalopathy Patient had normal CT of the brain on admission Stable for transfer to [facility] floor MRSA sepsis Both blood cultures and wound culture returned positive for MRSA Continuing renally dosed vancomycin, Zosyn discontinued by infectious disease Ischemic right foot, vascular surgery consulted by infectious disease Appreciate infectious disease consult Appreciate vascular surgery consult AV fistula repair 09/09/18 Patient underwent repair of left AV fistula yesterday Some normal amounts of pain postop Surgical dressing appears clean dry and intact End-stage renal disease Patient missed 2 dialysis treatments Continue Thursday schedule Patient underwent surgery 09/09/18 for revision of her AV graft Appreciate nephrology consult Hyperkalemia Evident on yesterday's labs prior to dialysis, normalized today Follow with a.m. labs Pulmonary Edema Continue with dialysis for fluid management Duo nebs every 6 hours scheduled and as needed Encourage incentive spirometry Right renal mass Urology consulted for evaluation Recommendation is likely nephrectomy by Dr. Ramses Perera Outpatient follow-up recommended following discharge Appreciate urology consult Type 2 diabetes Accu-Cheks with sliding scale insulin coverage Diabetic diet h/o CAD LAD stent 06/08 Chronic systolic CHF, EF equals 30-35% in 2017, severe TR h/o PAD left BKA, iliofemoral bypass, right femoropopliteal bypass November 2017 Continue baby aspirin DVT Prophylaxis Heparin Disposition Patient is improving slowly, she is stable enough to transfer out of the ICU For discharge planning she should be considered rehab placement
--- NOTE | 2018-09-11 11:19 | P.PNNP ---
Subjective Interval history: Patient resting in bed, reports some ongoing arm pains and hand pains Physical Exam Vital signs: Vital Signs 09/10/18 11:58 09/10/18 12:00 09/10/18 14:00 Temperature Pulse Rate 101 H 101 H 101 H Respiratory Rate 18 39 H Blood Pressure 102/59 L 102/59 L Pulse Oximetry 100 100 09/10/18 15:00 09/10/18 16:00 09/10/18 18:00 Temperature 98.8 F Pulse Rate 97 H 92 H 95 H Respiratory Rate 18 10 L Blood Pressure 114/59 L Pulse Oximetry 100 09/10/18 19:11 09/10/18 20:00 09/10/18 22:00 Temperature 99.2 F Pulse Rate 93 H 92 H Respiratory Rate 16 Blood Pressure 121/70 Pulse Oximetry 99 100 09/11/18 00:00 09/11/18 02:00 09/11/18 04:00 Temperature 98.0 F 97.7 F Pulse Rate 87 86 87 Respiratory Rate 13 11 L Blood Pressure 115/65 123/70 Pulse Oximetry 100 100 09/11/18 06:00 09/11/18 08:00 09/11/18 09:00 Temperature 97.7 F Pulse Rate 87 87 86 Respiratory Rate 14 Blood Pressure 116/69 Pulse Oximetry 100 09/11/18 10:00 Temperature Pulse Rate 87 Respiratory Rate Blood Pressure Pulse Oximetry Intake & Output 09/10/18 09/11/18 09/11/18 18:59 06:59 18:59 Intake Total 370 / 370 700 / 700 Output Total 1999 0 / 0 Balance -1630 / -1630 700 / 700 Weight 49.5 kg Intake: IV 250 / 250 Vancomycin Inj 1,000 MG In NS 250 / 250 Inj 250 ML @ 250 mls/hr IV.SIG WITH DIALYSIS [facility] Rx#:[id number] Oral 120 / 120 700 / 700 Output: Urine 0 / 0 0 / 0 Stool 0 / 0 Urine/Stool Mix 0 / 0 Hemodialysis Amount 1999 Other: Post Void Residual 0 # Voids 0 # Incontinent Voids 0 # Urine Diapers 0 Date of Last Bowel Movement 09/09/18 09/09/18 09/09/18 # Bowel Movements 0 0 # Incontinent Bowel Movements 0 - Constitutional no acute distress - Routine HEENT Exam Head: Present: normocephalic Eye: Present: EOMI ENT: Present: mucous membranes moist - Routine Respiratory Exam Present: decreased breath sounds - Routine Cardiovascular Exam Present: RRR - Routine Abdominal Exam Present: soft - Routine Extremities Exam Present: AV fistula - Routine Skin Exam Present: intact - Routine Neurological Exam Present: alert, oriented X3 - Detailed Neurological Exam: Coma Scale Eye Opening: Spontaneous - Routine Psychiatric Exam Present: normal affect Assessment and Plan - Assessment (1) ESRD (end stage renal disease) Code(s): N18.6 - End stage renal disease Status: Chronic Plan: HD done Thursday, tolerated HD well. Plan next HD Thursday. If she is NPO, start D10NS at 20 ml/hour for hyperkalemia. K+ improved today She is s/p repair/excision of infected pseudoaneurysm of AVF, with apparent interposition bovine graft. Currently with non-tunneled HD catheter, will need to change to tunneled catheter when blood cultures clear. On Renvela for hyperphosphatemia. ---- Patient well known to me for AV access issues: Left brachiocephalic AV fistula created in 2007 with overlapping 10mm Viabahn stent-grafts at cephalic arch. History of steal and left hand 4th digit amputation. Subsequent LAND banding x 2: 3mm banding 12/2017 and 2nd 3mm banding 01/2018 - resolution of hand digit ischemia post banding, with flow reduction from 2.1L/ min to 950cc/min. Now with apparent surgical excision of pseudoaneurysm and banding sites and interposition bovine graft. High risk of steal - continue to monitor with vascular surgery. If issues, may require eventual proximalization of arterial inflow vs DRIL - however monitor for now. Warm digits on exam today. Can follow flows as outpatient as well once stable. (2) Hyperkalemia Code(s): E87.5 - Hyperkalemia Status: Acute Plan: Improved. Monitor. Should be on low potassium diet. If NPO, she should be on D10NS. (3) Altered mental status Code(s): R41.82 - Altered mental status, unspecified Status: Acute Plan: Could be due to uremia, but also could be due to sepsis. Supportive care. Monitor. Improving. (4) Renal mass Code(s): N28.89 - Other specified disorders of kidney and ureter Status: Acute Plan: Renal mass has grown in size, most likely malignancy. Urology note reviewed, to follow up after discharge. (5) Severe sepsis Code(s): A41.9 - Sepsis, unspecified organism; R65.20 - Severe sepsis without septic shock Status: Acute Plan: MRSA sepsis, endocarditis. MRI of the brain negative for septic emboli. She has mitral valve vegetation. On Vancomycin. s/p excision of infected pseudoaneurysm of AVF. (6) CAD (coronary artery disease) Code(s): I25.10 - Atherosclerotic heart disease of [place] coronary artery without angina pectoris Status: Chronic (7) PAD (peripheral artery disease) Code(s): I73.9 - Peripheral vascular disease, unspecified Status: Chronic Plan: s/p left BKA. Poor circulation of right lower extremity. (8) DM2 (diabetes mellitus, type 2) Code(s): E11.9 - Type 2 diabetes mellitus without complications Status: Chronic Plan: maintain blood glucose between 140 and 180 while hospitalized.
--- NOTE | 2018-09-11 13:46 | P.PNID ---
Subjective Remarks: sp repair of infected psedoaneurism of AV fistula all blood clx are + for MRSA 2 D echo with MV vegetation afebrile Antibiotics: vancomycin Allergies/Adverse Reactions: Allergies latex Allergy (Severe, Unverified 09/06/18 11:19) Edema RASH Objective Vital Signs 09/10/18 14:00 09/10/18 15:00 09/10/18 16:00 Temperature 98.8 F Pulse Rate 101 H 97 H 92 H Respiratory Rate 18 10 L Blood Pressure 114/59 L Pulse Oximetry 100 09/10/18 18:00 09/10/18 19:11 09/10/18 20:00 Temperature 99.2 F Pulse Rate 95 H 93 H Respiratory Rate 16 Blood Pressure 121/70 Pulse Oximetry 99 100 09/10/18 22:00 09/11/18 00:00 09/11/18 02:00 Temperature 98.0 F Pulse Rate 92 H 87 86 Respiratory Rate 13 Blood Pressure 115/65 Pulse Oximetry 100 09/11/18 04:00 09/11/18 06:00 09/11/18 08:00 Temperature 97.7 F 97.7 F Pulse Rate 87 87 87 Respiratory Rate 11 L 14 Blood Pressure 123/70 116/69 Pulse Oximetry 100 100 09/11/18 09:00 09/11/18 10:00 09/11/18 12:00 Temperature 97.8 F Pulse Rate 86 87 88 Respiratory Rate 11 L Blood Pressure 115/70 Pulse Oximetry 100 Intake & Output 09/10/18 09/11/18 09/11/18 18:59 06:59 18:59 Intake Total 370 / 370 700 / 700 Output Total 1999 0 / 0 Balance -1630 / -1630 700 / 700 Weight 49.5 kg Intake: IV 250 / 250 Vancomycin Inj 1,000 MG In NS 250 / 250 Inj 250 ML @ 250 mls/hr IV.SIG WITH DIALYSIS [facility] Rx#:[id number] Oral 120 / 120 700 / 700 Output: Urine 0 / 0 0 / 0 Stool 0 / 0 Urine/Stool Mix 0 / 0 Hemodialysis Amount 1999 Other: Post Void Residual 0 # Voids 0 # Incontinent Voids 0 # Urine Diapers 0 Date of Last Bowel Movement 09/09/18 09/09/18 09/09/18 # Bowel Movements 0 0 # Incontinent Bowel Movements 0 09/11/18 08:30 Blood - Peripheral Aerobic Blood Culture - Pending 09/11/18 08:30 Blood - Peripheral Anaerobic Blood Culture - Pending 09/11/18 08:39 Blood - Peripheral Aerobic Blood Culture - Pending 09/11/18 08:39 Blood - Peripheral Anaerobic Blood Culture - Pending 09/09/18 11:20 Wound - Arm Gram Stain - Final 09/09/18 11:20 Wound - Arm Wound Culture - Final S. aureus MRSA 09/09/18 11:20 Wound - Arm Acid Fast Bacilli Smear - Final No acid fast bacilli seen 09/09/18 11:20 Wound - Arm Mycobacterial Culture - Pending 09/09/18 11:20 Wound - Arm Fungal Smear - Final No fungal elements seen 09/09/18 11:20 Wound - Arm Fungal Culture - Pending 09/09/18 03:55 Blood - Peripheral Aerobic Blood Culture - Preliminary gram positive cocci 09/09/18 03:55 Blood - Peripheral Anaerobic Blood Culture - Preliminary gram positive cocci 09/09/18 03:47 Blood - Peripheral Aerobic Blood Culture - Preliminary gram positive cocci 09/09/18 03:47 Blood - Peripheral Anaerobic Blood Culture - Preliminary gram positive cocci 09/06/18 11:20 Blood - Peripheral Aerobic Blood Culture - Final S. aureus MRSA 09/06/18 11:20 Blood - Peripheral Anaerobic Blood Culture - Final S. aureus MRSA 09/06/18 11:28 Blood - Peripheral Aerobic Blood Culture - Final S. aureus MRSA 09/06/18 11:28 Blood - Peripheral Anaerobic Blood Culture - Final S. aureus MRSA Lab - Hematology Results 09/10/18 09/11/18 10:18 08:30 WBC 12.1 H 12.3 H RBC 3.74 L 4.21 Hgb 10.0 L D 11.3 L Hct 31.2 L 35.1 MCV 83.3 83.3 MCH 26.7 L 26.9 L MCHC 32.0 32.3 RDW 19.5 H 19.3 H Plt Count 97 L 114 L MPV 10.4 9.9 Lab - Chemistry Results 09/10/18 09/11/18 09/11/18 05:32 08:39 12:17 Sodium 130 L 135 L Potassium 6.1 H D 4.3 D Chloride 94 L 97 L Carbon Dioxide 27.1 26.8 Anion Gap 9 11 BUN 40 H 28 H Creatinine 5.11 H 3.70 H Estimated GFR 11 L 15 L POC Glucose 180 H Random Glucose 226 H 194 H Calcium 8.1 L 8.4 L Imaging: ITS Impressions Abdomen/Pelvis CT 09/06/18 11:10 CONCLUSION: 1. Moderate stool in the rectum. No dilated loops of bowel to suggest obstruction. 2. Persistent large solid mass arising from the superior pole the right kidney measuring up to 6.2 cm. This is a renal cell carcinoma until proven otherwise. 3. End-stage appearing kidneys bilaterally. 4. Prominent diffuse vascular calcifications. Head CT 09/06/18 11:10 CONCLUSION: 1. Atrophy and atherosclerosis. . Chest X-Ray 09/07/18 06:00 CONCLUSION: Cardiomegaly and findings of congestive heart failure. There has been no significant change when compared to the prior exam. Head MRI 09/08/18 00:00 CONCLUSION: 1. No acute findings. No recent infarct. Mild chronic white matter ischemic changes in the periventricular region. Upper Extremity Ultrasound 09/09/18 00:00 CONCLUSION: Mixed echogenicity collection around the proximal fistula outflow in the medial left upper arm. Arterial Ultrasound 09/10/18 00:00 CONCLUSION: 1. Right iliofemoral and femoral popliteal bypass grafts appear to be occluded. 2. Occlusion of the [place] superficial femoral and popliteal arteries. Proximal trifurcation vessels also appear to be occluded. 3. Monophasic signal in the right external iliac, common femoral and profunda femoral arteries. 4. CTA abdomen and runoff could be performed for anatomic characterization if clinically warranted. Catheter Placement 09/10/18 00:00 CONCLUSION: 1. Uncomplicated line placement as above. The patient has an occluded right internal jugular vein. This catheter was placed in the external jugular vein. Physical Exam: GENERAL: NAD SKIN: Warm and dry. HEAD: Atraumatic. Normocephalic. EYES: Pupils equal and round. No scleral icterus. No injection or drainage. ENT: No nasal bleeding or discharge. Mucous membranes pink and moist. NECK: Trachea midline. No JVD. CARDIOVASCULAR: Regular rate and rhythm. + murmur 3/6 systolic RESPIRATORY: No accessory muscle use. Clear to auscultation. Breath sounds equal bilaterally. GASTROINTESTINAL: Abdomen soft, non-tender, nondistended. Hepatic and splenic margins not palpable. MUSCULOSKELETAL: Extremities without clubbing, cyanosis, or edema. L BKA cold to touch R foot, not refilling L UE I dressing in place NEUROLOGICAL: Awake and alert. No obvious cranial nerve deficits. Normal, coherent speech appears to move all extremeties to command PSYCHIATRIC: calm and cooperative LINES: vascath in place R chest Assessment and Plan - Plan MRSA sepsis: souce MV endocarditis MV endocartditis AMS no septic emboli HD, non comliance came with electrolytes imbalance Ischemic R foot - vasc surgery ff no acute ischemia h/o RLE ileofemoral and fem pop bypass in Feb 2018 Infected psuedoaneurism of R UE AVF - sp repair cont vancomycin w HD keep trough levels 15-20 Permacath can be placed after blood is sterile Gwendolyn Mcnamara RN
[2018-09-11] MEDS: Insulin NovoLOG Aspart Correctional Sugar Inj SQ SCH ×3 (13:56→20:08)
[2018-09-12] MEDS: Heparin - SQ 10,000 UNITS/ML Vial SQ SCH ×2 (06:11→17:32)
[2018-09-12] MEDS: Famotidine PF Inj 20 MG/2 ML Vial IV.PUSH SCH ×2 (08:48→20:28)
[2018-09-12] MEDS: Insulin NovoLOG Aspart Correctional Sugar Inj SQ SCH ×3 (08:48→16:56)
[2018-09-12] MEDS: Senna/Docusate Sodium 8.6/50 MG Tablet PO SCH ×2 (08:48→20:27)
--- NOTE | 2018-09-12 11:02 | P.PNNP ---
Subjective Interval history: no acute complaints, tired today Physical Exam Vital signs: Vital Signs 09/11/18 11:00 09/11/18 12:00 09/11/18 13:00 Temperature 97.8 F Pulse Rate 87 88 87 Respiratory Rate 14 11 L 13 Blood Pressure 119/67 115/70 110/60 Pulse Oximetry 100 100 100 09/11/18 14:00 09/11/18 15:00 09/11/18 15:51 Temperature Pulse Rate 85 87 88 Respiratory Rate 15 14 16 Blood Pressure 91/58 L 86/53 L 95/52 L Pulse Oximetry 100 86 L 100 09/11/18 16:00 09/11/18 17:00 09/11/18 18:00 Temperature 97.7 F Pulse Rate 86 88 85 Respiratory Rate 23 18 17 Blood Pressure 93/54 L 88/55 L 95/59 L Pulse Oximetry 100 100 100 09/11/18 19:00 09/11/18 19:12 09/11/18 20:00 Temperature 97.6 F Pulse Rate 85 85 Respiratory Rate 17 20 Blood Pressure 89/59 L 98/60 L Pulse Oximetry 100 100 100 09/11/18 21:00 09/11/18 22:00 09/11/18 23:00 Temperature Pulse Rate 87 86 86 Respiratory Rate 21 13 22 Blood Pressure 104/61 99/60 L 102/64 Pulse Oximetry 100 100 100 09/12/18 00:00 09/12/18 01:00 09/12/18 02:00 Temperature 97.8 F Pulse Rate 87 86 88 Respiratory Rate 25 H 13 20 Blood Pressure 108/68 109/70 108/70 Pulse Oximetry 100 100 100 09/12/18 03:00 09/12/18 04:00 09/12/18 06:00 Temperature 98 F Pulse Rate 87 90 90 Respiratory Rate 11 L 13 Blood Pressure 116/73 111/66 Pulse Oximetry 100 100 09/12/18 08:00 09/12/18 09:00 09/12/18 10:00 Temperature 98.2 F Pulse Rate 90 92 H 89 Respiratory Rate 11 L Blood Pressure 120/70 Pulse Oximetry 100 Intake & Output 09/11/18 09/12/18 09/12/18 18:59 06:59 18:59 Intake Total 240 / 240 Output Total 0 / 0 0 / 0 Balance 0 / 0 240 / 240 Weight 49 kg Intake: Oral 240 / 240 Output: Urine 0 / 0 0 / 0 Stool 0 / 0 Other: Date of Last Bowel Movement 09/09/18 09/09/18 09/09/18 - Constitutional no acute distress - Routine HEENT Exam Head: Present: normocephalic Eye: Present: EOMI ENT: Present: mucous membranes moist - Routine Neck Exam Present: supple - Routine Respiratory Exam Present: CTA bilaterally - Routine Cardiovascular Exam Present: RRR - Routine Abdominal Exam Present: soft - Routine Extremities Exam Present: AV fistula - Routine Skin Exam Present: intact - Routine Neurological Exam Present: alert, oriented X3 - Routine Psychiatric Exam Present: normal affect Assessment and Plan - Assessment (1) ESRD (end stage renal disease) Code(s): N18.6 - End stage renal disease Status: Chronic Plan: HD done Thursday, tolerated HD well. Plan next HD Thursday. If she is NPO, start D10NS at 20 ml/hour for hyperkalemia. K+ stable She is s/p repair/excision of infected pseudoaneurysm of AVF, with apparent interposition bovine graft. Discussed with Dr. Hayes - appreciate assistance. Fistula pseudoaneuryms grossly infected. Previous steal history - no apparent signs of steal at this point. Currently with non-tunneled HD catheter, will need to change to tunneled catheter when blood cultures clear. On Renvela for hyperphosphatemia. ---- Patient well known to me for AV access issues: Left brachiocephalic AV fistula created in 2007 with overlapping 10mm Viabahn stent-grafts at cephalic arch. History of steal and left hand 4th digit amputation. Subsequent LAND banding x 2: 3mm banding 12/2017 and 2nd 3mm banding 01/2018 - resolution of hand digit ischemia post banding, with flow reduction from 2.1L/ min to 950cc/min. Now with surgical excision of pseudoaneurysm and banding sites and interposition bovine graft. High risk of steal - continue to monitor with vascular surgery. Warm digits on exam today. Can follow flows as outpatient as well, once stable. (2) Hyperkalemia Code(s): E87.5 - Hyperkalemia Status: Acute Plan: Improved. Monitor. Should be on low potassium diet. If NPO, she should be on D10NS. (3) Altered mental status Code(s): R41.82 - Altered mental status, unspecified Status: Acute Plan: Could be due to uremia, but also could be due to sepsis. Supportive care. Monitor. Improving. (4) Renal mass Code(s): N28.89 - Other specified disorders of kidney and ureter Status: Acute Plan: Renal mass has grown in size, most likely malignancy. Urology note reviewed, to follow up after discharge. (5) Severe sepsis Code(s): A41.9 - Sepsis, unspecified organism; R65.20 - Severe sepsis without septic shock Status: Acute Plan: MRSA sepsis, endocarditis. MRI of the brain negative for septic emboli. She has mitral valve vegetation. On Vancomycin. s/p excision of infected pseudoaneurysm of AVF. (6) CAD (coronary artery disease) Code(s): I25.10 - Atherosclerotic heart disease of [place] coronary artery without angina pectoris Status: Chronic (7) PAD (peripheral artery disease) Code(s): I73.9 - Peripheral vascular disease, unspecified Status: Chronic Plan: s/p left BKA. Poor circulation of right lower extremity. (8) DM2 (diabetes mellitus, type 2) Code(s): E11.9 - Type 2 diabetes mellitus without complications Status: Chronic Plan: maintain blood glucose between 140 and 180 while hospitalized.
--- NOTE | 2018-09-12 11:25 | P.PNIM ---
Subjective Interval history: Mrs. Lugo continues to improve and her energy level and interaction each day. She is sitting up and feeding herself in bed. Physical Exam Vital signs: Vital Signs 09/11/18 12:00 09/11/18 13:00 09/11/18 14:00 Temperature 97.8 F Pulse Rate 88 87 85 Respiratory Rate 11 L 13 15 Blood Pressure 115/70 110/60 91/58 L Pulse Oximetry 100 100 100 09/11/18 15:00 09/11/18 15:51 09/11/18 16:00 Temperature 97.7 F Pulse Rate 87 88 86 Respiratory Rate 14 16 23 Blood Pressure 86/53 L 95/52 L 93/54 L Pulse Oximetry 86 L 100 100 09/11/18 17:00 09/11/18 18:00 09/11/18 19:00 Temperature Pulse Rate 88 85 85 Respiratory Rate 18 17 17 Blood Pressure 88/55 L 95/59 L 89/59 L Pulse Oximetry 100 100 100 09/11/18 19:12 09/11/18 20:00 09/11/18 21:00 Temperature 97.6 F Pulse Rate 85 87 Respiratory Rate 20 21 Blood Pressure 98/60 L 104/61 Pulse Oximetry 100 100 100 09/11/18 22:00 09/11/18 23:00 09/12/18 00:00 Temperature 97.8 F Pulse Rate 86 86 87 Respiratory Rate 13 22 25 H Blood Pressure 99/60 L 102/64 108/68 Pulse Oximetry 100 100 100 09/12/18 01:00 09/12/18 02:00 09/12/18 03:00 Temperature Pulse Rate 86 88 87 Respiratory Rate 13 20 11 L Blood Pressure 109/70 108/70 116/73 Pulse Oximetry 100 100 100 09/12/18 04:00 09/12/18 06:00 09/12/18 08:00 Temperature 98 F 98.2 F Pulse Rate 90 90 90 Respiratory Rate 13 11 L Blood Pressure 111/66 120/70 Pulse Oximetry 100 100 09/12/18 09:00 09/12/18 10:00 Temperature Pulse Rate 92 H 89 Respiratory Rate Blood Pressure Pulse Oximetry Intake & Output 09/11/18 09/12/18 09/12/18 18:59 06:59 18:59 Intake Total 240 / 240 Output Total 0 / 0 0 / 0 Balance 0 / 0 240 / 240 Weight 49 kg Intake: Oral 240 / 240 Output: Urine 0 / 0 0 / 0 Stool 0 / 0 Other: Date of Last Bowel Movement 09/09/18 09/09/18 09/09/18 Narrative: GENERAL: AAOx3, no acute distress, generally weak, cachectic, improving energy level SKIN: Warm and dry. Abrasions on upper and lower extremities, left stump has drainage HEAD: Atruamtic, normocephalic. EYES: No scleral icterus. No injection or drainage. ENT: Moist mucous membranes, patent nares, no erythema of oropharynx. NECK: Supple, trachea midline. No JVD or lymphadenopathy. Normal thyroid. CARDIOVASCULAR: Regular rate and rhythm. No murmurs, gallops, or rubs. RESPIRATORY: Scattered congestive sounds, slight diminished bases. No crackles or wheezes. No accessory muscle use. GASTROINTESTINAL: Abdomen soft, non-tender, nondistended, normal active bowel sounds MUSCULOSKELETAL: No cyanosis, or edema. NEURO: CN II-XII grossly intact, no focal deficits, no slurring of speech Results - Labs CBC & Chem 7: 09/11/18 08:30 09/11/18 08:39 Laboratory Results - last 24 hr 09/11/18 09/11/18 09/11/18 12:17 15:47 17:09 POC Glucose 180 H 206 H Random Vancomycin 12.8 09/11/18 09/12/18 20:06 08:21 POC Glucose 186 H 98 Random Vancomycin Microbiology 09/11/18 08:30 Blood - Peripheral Aerobic Blood Culture - Preliminary No growth in 1 day 09/11/18 08:30 Blood - Peripheral Anaerobic Blood Culture - Final QNS - See aerobic report. 09/11/18 08:39 Blood - Peripheral Aerobic Blood Culture - Preliminary No growth in 1 day 09/11/18 08:39 Blood - Peripheral Anaerobic Blood Culture - Preliminary No growth in 1 day 09/09/18 03:55 Blood - Peripheral Aerobic Blood Culture - Final S. aureus MRSA 09/09/18 03:55 Blood - Peripheral Anaerobic Blood Culture - Final S. aureus MRSA 09/09/18 03:47 Blood - Peripheral Aerobic Blood Culture - Final S. aureus MRSA 09/09/18 03:47 Blood - Peripheral Anaerobic Blood Culture - Final S. aureus MRSA 09/09/18 11:20 Wound - Arm Gram Stain - Final 09/09/18 11:20 Wound - Arm Wound Culture - Final S. 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 Patient had normal CT of the brain on admission Stable for transfer to [facility] MRSA sepsis Both blood cultures and wound culture returned positive for MRSA Infected pseudoaneurysm of AV graft removed Continuing renally dosed vancomycin, Zosyn discontinued by infectious disease Ischemic right foot, vascular surgery consulted by infectious disease Appreciate infectious disease consult Appreciate vascular surgery consult AV fistula repair 09/09/18 Patient underwent repair of left AV fistula yesterday, pseudoaneurysm was infected Surgical dressing appears clean dry and intact End-stage renal disease Patient missed 2 dialysis treatments, now seems caught up Continue Thursday schedule Patient underwent surgery 09/09/18 for revision of her AV graft Appreciate nephrology consult Hyperkalemia Intermittent elevations prior to dialysis treatments Follow with a.m. labs Pulmonary Edema Continue with dialysis for fluid management Duo nebs every 6 hours scheduled and as needed Encourage incentive spirometry Right renal mass Urology consulted for evaluation, likely malignant Recommendation is likely nephrectomy by Dr. Ramses Perera Outpatient follow-up recommended following discharge Appreciate urology consult Type 2 diabetes Accu-Cheks with sliding scale insulin coverage Diabetic diet h/o CAD LAD stent 06/08 Chronic systolic CHF, EF equals 30-35% in 2017, severe TR h/o PAD left BKA, iliofemoral bypass, right femoropopliteal bypass November 2017 Continue baby aspirin DVT Prophylaxis Heparin Disposition Patient is improving slowly, she is stable enough to transfer out of the ICU For discharge planning she should be considered rehab placement
--- NOTE | 2018-09-12 12:45 | ECHRPT ---
EXAM DATE: 09/12/2018 12:00 AM EDT AGE/SEX: 58 years / Female INDICATIONS: Hyperkalemia, Fluid Overload CLINICAL DATA: This is the patient's initial encounter. Patient reports that signs and symptoms have been present for > 1 year and indicates a pain score of 3/10. MEDICAL/SURGICAL HISTORY: . ESRD, Ischemic right foot, Type 2 diabetes, Right renal mass, H/O C AD, PVD, AV fistula, Abscess of L upper extremity . Right femoral to right popliteal bypass, Left BK A COMPARISON: No prior exams available for comparison. TECHNIQUE: Four-cuff ankle and brachial pressures were obtained. Pulse cuff waveform tracings of the ankles were recorded, and ankle-brachial indices were calculated. PRESSURES (mmHg): Brachial (arm) : RIGHT: 112, LEFT: N/A Ankle : RIGHT: 0, LEFT: BKA COOKIE : RIGHT: 0.00, LEFT: BKA TBI : RIGHT: 0.00, LEFT: BKA FINDINGS: Pulsed-Cuff Waveform: Patient has a history of right femoral to popliteal bypass graft. Tracings are effectively flaps in the ankle and toe with no pressures obtained. Other: None. CONCLUSION: 1. Findings discerning for significant right lower extremity ischemia and likely occlusion of the ri ght femoral to popliteal bypass graft with nearly flat waveforms and unobtainable pressures. 2. Status post left BKA. Electronically signed by: Antione Hernández MD 09/12/2018 12:44 PM EDT
[2018-09-12 13:55] LABS: Calcium 8.8 mg/dL (8.5-10.1); Carbon Dioxide 30.4 meq/L (21.0-32.0); Potassium 4.7 meq/L (3.5-5.1)
--- NOTE | 2018-09-12 14:32 | P.PNVS ---
Subjective Subjective/Hospital Course: Patient is more awake this morning confusion is resolving. No acute events overnight. Objective Vital Signs / I&O: Vital Signs 09/11/18 15:00 09/11/18 15:51 09/11/18 16:00 Temperature 97.7 F Pulse Rate 87 88 86 Respiratory Rate 14 16 23 Blood Pressure 86/53 L 95/52 L 93/54 L Pulse Oximetry 86 L 100 100 09/11/18 17:00 09/11/18 18:00 09/11/18 19:00 Temperature Pulse Rate 88 85 85 Respiratory Rate 18 17 17 Blood Pressure 88/55 L 95/59 L 89/59 L Pulse Oximetry 100 100 100 09/11/18 19:12 09/11/18 20:00 09/11/18 21:00 Temperature 97.6 F Pulse Rate 85 87 Respiratory Rate 20 21 Blood Pressure 98/60 L 104/61 Pulse Oximetry 100 100 100 09/11/18 22:00 09/11/18 23:00 09/12/18 00:00 Temperature 97.8 F Pulse Rate 86 86 87 Respiratory Rate 13 22 25 H Blood Pressure 99/60 L 102/64 108/68 Pulse Oximetry 100 100 100 09/12/18 01:00 09/12/18 02:00 09/12/18 03:00 Temperature Pulse Rate 86 88 87 Respiratory Rate 13 20 11 L Blood Pressure 109/70 108/70 116/73 Pulse Oximetry 100 100 100 09/12/18 04:00 09/12/18 06:00 09/12/18 08:00 Temperature 98 F 98.2 F Pulse Rate 90 90 90 Respiratory Rate 13 11 L Blood Pressure 111/66 120/70 Pulse Oximetry 100 100 09/12/18 09:00 09/12/18 10:00 09/12/18 12:00 Temperature 98 F Pulse Rate 92 H 89 90 Respiratory Rate 9 L Blood Pressure 107/59 L Pulse Oximetry 100 09/12/18 14:00 Temperature Pulse Rate 92 H Respiratory Rate Blood Pressure Pulse Oximetry Intake & Output 09/11/18 09/12/18 09/12/18 18:59 06:59 18:59 Intake Total 240 / 240 Output Total 0 / 0 0 / 0 Balance 0 / 0 240 / 240 Weight 49 kg Intake: Oral 240 / 240 Output: Urine 0 / 0 0 / 0 Stool 0 / 0 Other: Date of Last Bowel Movement 09/09/18 09/09/18 09/09/18 Physical Exam: Left upper extremity wound is clean dry intact. Patient has biphasic radial, ulnar signals. Left upper extremity swelling is stable since previous exam. Left BKA wound with 2 cm opening in its mid aspect. There is good granulation tissue without signs of infection. Right lower extremity monophasic dorsalis pedis signal. Laboratory Results - last 24 hr 09/11/18 09/11/18 09/11/18 15:47 17:09 20:06 Sodium Potassium Chloride Carbon Dioxide Anion Gap BUN Creatinine Estimated GFR POC Glucose 206 H 186 H Random Glucose Calcium Random Vancomycin 12.8 09/12/18 09/12/18 08:21 12:59 Sodium 136 Potassium 4.7 Chloride 95 L Carbon Dioxide 30.4 Anion Gap 11 BUN 39 H Creatinine 4.83 H Estimated GFR 11 L POC Glucose 98 Random Glucose 105 Calcium 8.8 Random Vancomycin Microbiology 09/11/18 08:30 Aerobic Blood Culture - Preliminary Blood - Peripheral No growth in 1 day Anaerobic Blood Culture - Final QNS - See aerobic report. 09/11/18 08:39 Aerobic Blood Culture - Preliminary Blood - Peripheral No growth in 1 day Anaerobic Blood Culture - Preliminary No growth in 1 day 09/09/18 03:55 Aerobic Blood Culture - Final Blood - Peripheral S. aureus MRSA Anaerobic Blood Culture - Final S. aureus MRSA 09/09/18 03:47 Aerobic Blood Culture - Final Blood - Peripheral S. aureus MRSA Anaerobic Blood Culture - Final S. aureus MRSA Impressions Arterial Ultrasound 09/10/18 00:00 CONCLUSION: 1. Right iliofemoral and femoral popliteal bypass grafts appear to be occluded. 2. Occlusion of the [place] superficial femoral and popliteal arteries. Proximal trifurcation vessels also appear to be occluded. 3. Monophasic signal in the right external iliac, common femoral and profunda femoral arteries. 4. CTA abdomen and runoff could be performed for anatomic characterization if clinically warranted. Extremity Arterial Study 09/10/18 00:00 CONCLUSION: 1. Findings discerning for significant right lower extremity ischemia and likely occlusion of the right femoral to popliteal bypass graft with nearly flat waveforms and unobtainable pressures. 2. Status post left BKA. Assessment and Plan - Assessment (1) Abscess of upper extremity Code(s): L02.419 - Cutaneous abscess of limb, unspecified Status: Acute (2) Toxic metabolic encephalopathy Code(s): G92 - Toxic encephalopathy Status: Acute (3) Severe sepsis Code(s): A41.9 - Sepsis, unspecified organism; R65.20 - Severe sepsis without septic shock Status: Acute (4) PAD (peripheral artery disease) Code(s): I73.9 - Peripheral vascular disease, unspecified Status: Chronic - Plan Left upper extremity abscess, infected hematoma. S/P excision of infected PSA. Doing well Appreciate Dr. Borden's input. Patient is at risk of developing steal syndrome requiring banding. Right lower extremity peripheral vascular disease Stable with no acute limb ischemia. LBKA stump Continue with local wound care. May need revision in the future.
[2018-09-13] MEDS: Insulin NovoLOG Aspart Correctional Sugar Inj SQ SCH ×5 (00:54→22:47)
[2018-09-13 04:27] LABS: Hematocrit 36.7 % (35.0-46.0); Hemoglobin 11.7 gm/dL (11.6-15.3); Mean Corpuscular Hemoglobin 27.2 pg (27.0-34.0); Mean Platelet Volume 11.3 fL (7.0-11.0); Platelet Count 164 th/mm3 (150-450); Red Blood Count 4.32 mil/mm3 (4.00-5.30); Red Cell Distribution Width 19.3 % (11.6-17.2)
[2018-09-13] MEDS ORDERED: Sod Chloride 0.9% Inj 1,000 ML IV.SIG SCH (04:30)
--- NOTE | 2018-09-13 04:43 | P.PNADD ---
Addendum to Inpatient Note Reason for Addendum: Additional Documentation Additional information: Resident team called about Tarsha at 4:13. Patient is a 58 year old female with a history of ESRD on HD, CHF Echo 03/22/07 EF 30-35%, CAD, DM, PVD and recent LLE BKA, admitted on 09/06 for evaluation of altered mental status following two missed dialysis treatments. On admission, patient was found to be lethargic/encephalopathic, mumbling only a few words and unable to follow commands. Metabolic encephalopathy versus severe sepsis suspected. Patient was found to have MV vegetation, infected pseudoaneurysm and blood cultures grew MRSA. Patient treated with Vancomycin per ID. She also underwent I&D of left upper extremity abscess with total excision of infected left upper extremity pseudoaneurysm and left brachial cepahlic AV graft placement per vascular surgery. LuisEvelinaT called due to sudden change in mentation and blood pressure of 52/ undetectable, 67/48 and 80/51. GENERAL: Patient lethargic, not oriented to person, time or place. She does not appear to be in acute distress. SKIN: Warm and dry. HEAD: Atraumatic. Normocephalic. CARDIOVASCULAR: Regular rate and rhythm. RESPIRATORY: No accessory muscle use. Clear to auscultation. Breath sounds equal bilaterally. GASTROINTESTINAL: Abdomen soft, non-tender, nondistended. Hepatic and splenic margins not palpable. Assessment and Plan: Patient is a 58 year old female with a history of ESRD on HD, CHF Echo 03/22/07 EF 30-35%, CAD, DM, PVD and recent LLE BKA, admitted on 09/06 for evaluation of altered mental status. LuisZainab called for sudden change in mentation and hypotension. 1L fluid bolus started. Transfer to ICU. Dr. 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
[2018-09-13 04:46] LABS: ABG Base Excess -11.8 mmol/L (-2-2); ABG PCO2 30 mmHg (38-42); ABG PO2 155 mmHG (61-120)
[2018-09-13 04:48] LABS: Calcium 8.8 mg/dL (8.5-10.1); Carbon Dioxide 22.5 meq/L (21.0-32.0); Potassium 5.4 meq/L (3.5-5.1)
[2018-09-13] MEDS ORDERED: Sodium Chlor 0.9% Inj 500 ML IV.SIG SCH (05:00)
[2018-09-13] MEDS ORDERED: Sodium Chlor 0.9% Inj 1,000 ML IV.SIG SCH (05:00)
[2018-09-13 06:19] LABS: ABG Base Excess -10.1 mmol/L (-2-2); ABG PCO2 31 mmHg (38-42); ABG PO2 297 mmHG (61-120)
--- NOTE | 2018-09-13 06:19 | P.PNCC ---
Subjective Subjective Remarks/Hospital Course: No history is obtainable from the patient due to altered mental status. All history obtained from chart review and discussion with ED attending. Patient is a 58-year-old -[place] female with past medical history of type 2 diabetes, hypertension, hyperlipidemia, ESRD on HD M/W/F, CHF Echo 03/22/07 EF 30 -35%, CAD, s/p LAD stent 06/08, status post left BKA. Patient was brought to the emergency department by EMS for altered mental status. Apparently patient was found lying on the floor between 2 dressers, missed two dialysis appointments. CT of the head was negative for acute findings chest x-ray showed pulmonary vascular congestion, left lower lobe atelectasis. CT abdomen pelvis showed large 6.2 cm renal mass which has grown in size since last scan in Nov 2017, and suspicious for renal cell carcinoma. Her WBC count was 23.4 with left shift, with altered mental status this was most likely secondary to severe sepsis. Patient was empirically given vancomycin and Zosyn in the ED after getting blood cultures. Also her potassium was 6.3 patient is receiving bicarb now and nephrology had been contacted for stat dialysis I evaluated the patient in the emergency department. Patient is very lethargic encephalopathic. She mumbles a few words but did not follow commands. Even though very lethargic at this point she is protecting airway. In addition to IV bicarb I will also give 5 units of insulin and IV dextrose. Antibiotics will be continued-renally dosed vancomycin and Zosyn. Will request nephrology and urology consult. At this time critically ill with severe sepsis. SUBJ 09/07: Patient is lying in bed mental status seems to be improved alert oriented x2 today. Potassium is 5.3 chest x-ray shows pulmonary edema. Will request for repeat hemodialysis today 09/13: Rapid response team activated for patient hypotension and hypoxemia. After transfer to ICU I have found patient in agonal breathing and immediately intubated her with 7.5 ET tube. Shortly after intubation the patient was pulseless and 1 cycle of CPR was performed including one injection of epinephrine, chest compressions, and sodium bicarbonate injections. Family notified about the critical condition. Objective Vital Signs / I&O: Vital Signs 09/12/18 08:00 09/12/18 09:00 09/12/18 10:00 Temperature 98.2 F Pulse Rate 90 92 H 89 Respiratory Rate 11 L Blood Pressure 120/70 Pulse Oximetry 100 09/12/18 12:00 09/12/18 14:00 09/12/18 16:00 Temperature 98 F 98.1 F Pulse Rate 90 92 H 87 Respiratory Rate 9 L 18 Blood Pressure 107/59 L 108/61 Pulse Oximetry 100 100 09/12/18 19:45 09/12/18 20:00 09/12/18 21:00 Temperature 98.5 F Pulse Rate 90 Respiratory Rate 16 20 Blood Pressure 109/61 Pulse Oximetry 100 100 09/12/18 23:54 09/13/18 00:00 09/13/18 03:50 Temperature 99.2 F 98.6 F Pulse Rate 95 H 96 H 101 H Respiratory Rate 18 18 16 Blood Pressure 110/70 80/55 L Pulse Oximetry 98 99 09/13/18 05:10 Temperature Pulse Rate Respiratory Rate 27 H Blood Pressure Pulse Oximetry 100 Intake & Output 09/12/18 09/12/18 09/13/18 06:59 18:59 06:59 Intake Total 240 / 240 Output Total 0 / 0 0 / 0 Balance 240 / 240 0 / 0 Weight 49 kg Intake: Oral 240 / 240 Output: Urine 0 / 0 0 / 0 Other: Date of Last Bowel Movement 09/09/18 09/10/18 # Bowel Movements 0 Result Diagrams: 09/13/18 03:44 09/13/18 03:44 Objective Remarks: GENERAL: 58-year-old AA female, lying in bed intubated and unresponsive SKIN: Warm and dry. HEAD: Atraumatic. Normocephalic. EYES: Pupils equal and round, 2 mm reactive. No scleral icterus. ENT: No nasal bleeding or discharge. Mucous membranes dry. NECK: Trachea midline. No JVD. CARDIOVASCULAR: RRR. S1, S2 no S4. 2/6 pansystolic murmur RESPIRATORY: Clear to auscultation. No wheezes rales or rhonchi. Diminished air entry at the bases GASTROINTESTINAL: Abdomen soft, non-tender, nondistended. MUSCULOSKELETAL: AV fistula in left upper arm with palpable thrill. s/p L BKA NEUROLOGICAL: Patient is awake alert oriented to person and place. Moves extremities including left BKA stump. No focal deficits Assessment and Plan - Problem List (1) Toxic metabolic encephalopathy Code(s): G92 - Toxic encephalopathy Status: Acute (2) Severe sepsis Code(s): A41.9 - Sepsis, unspecified organism; R65.20 - Severe sepsis without septic shock Status: Acute (3) Altered mental status Code(s): R41.82 - Altered mental status, unspecified Status: Acute (4) Hyperkalemia Code(s): E87.5 - Hyperkalemia Status: Acute (5) ESRD (end stage renal disease) Code(s): N18.6 - End stage renal disease Status: Chronic (6) CAD (coronary artery disease) Code(s): I25.10 - Atherosclerotic heart disease of [place] coronary artery without angina pectoris Status: Chronic (7) PAD (peripheral artery disease) Code(s): I73.9 - Peripheral vascular disease, unspecified Status: Chronic (8) DM2 (diabetes mellitus, type 2) Code(s): E11.9 - Type 2 diabetes mellitus without complications Status: Chronic (9) Hypertension Code(s): I10 - Essential (primary) hypertension Status: Chronic (10) Ischemic cardiomyopathy Code(s): I25.5 - Ischemic cardiomyopathy Status: Chronic - Assessment and Plan Plan: Assessment and Plan NEURO: Toxic metabolic encephalopathy History of peripheral neuropathy History of glaucoma Avoid any sedating medication CT head pending Encephalopathy most likely from metabolic causes/sepsis. RESP: Respiratory failure Pulmonary edema Intubated for an airway protection DuoNeb every 6 hours scheduled and as needed Continue mechanical ventilation No weaning until neurologically improved CV: Coronary artery disease with prior stents (LAD stent 06/08) Chronic systolic heart failure ejection fraction 30-35% 2016 Severe TR s/p L BKA s/p R iliofemoral bypass and R fem-pop bypass by Dr. Ramirez 11/26/17 Peripheral arterial disease Hypertension, dyslipidemia Continue baby aspirin Series of troponins and EKG to rule out acute coronary syndrome GI: N.p.o., IV famotidine Start Nepro tube feeds FEN/RENAL: ESRD Large right renal mass suspicious for renal cell carcinoma Hemodialysis Thursday/Thursday/Thursday per nephrology, Dr Ahumada. Urology consulted for right renal mass (previously refused work up) ID: Severe sepsis Source of sepsis is unclear at this time, possibly HD access Received vancomycin and Zosyn in the ED, continue both renally dosed Follow-up on blood culture Consult ID HEME: Anemia of chronic disease No indication for blood transfusion at this time ENDO: Diabetes mellitus, type II Low-dose insulin sliding scale q6h PROPH: Heparin 5000 subcutaneous to 12 for DVT prophylaxis-resumed. IV famotidine for stress ulcer prophylaxis. ACCESS: Right groin central line 09/13/2018 Left groin arterial line 09/13/2018 35 minutes of critical care Critically ill with sepsis, respiratory failure and encephalopathy.
--- NOTE | 2018-09-13 06:20 | P.PCN ---
Date of procedure: 09/13/18 Pre-op diagnosis: Shock Post-op diagnosis: same Procedure: Central line placement A time-out was completed verifying correct patient, procedure, site, positioning , and special equipment if applicable. The patient was placed in a dependent position appropriate for central line placement based on the vein to be cannulated. The patients right groin was prepped and draped in sterile fashion. 1% Lidocaine was used to anesthetize the surrounding skin area. A triple lumen 9-Nepali Cordis catheter was introduced into the the common femoral vein using the Seldinger technique and under ultrasound guidance. The catheter was threaded smoothly over the guide wire and appropriate blood return was obtained. Each lumen of the catheter was evacuated of air and flushed with sterile saline. The catheter was then sutured in place to the skin and a sterile dressing applied. Perfusion to the extremity distal to the point of catheter insertion was checked and found to be adequate. Estimated Blood Loss: 1ml The patient tolerated the procedure well and there were no complications.
--- NOTE | 2018-09-13 06:20 | P.PCN ---
Date of procedure: 09/13/18 Pre-op diagnosis: Respiratory failure Post-op diagnosis: same Procedure: Endotracheal Intubation A time-out was completed verifying correct patient, procedure, site, positioning , and special equipment if applicable. The patient was placed in a flat position. Sedation was obtained using Etomidate 20mg. The patient was easily ventilated using an ambu bag. The [employer]/ MAC 4 BLADE was used and inserted into the oropharynx at which time there was a Grade 1 view of the vocal cords. A 8-turkmen endotracheal tube was inserted and visualized going through the vocal cords. The stylette was removed. Colorimetric change was visualized on the CO2 meter. Breath sounds were heard in both lung diallo equally. The endotracheal tube was placed at 23 cm, measured at the teeth. A chest x-ray was ordered to assess for pneumothorax and verify endotrachealtube placement. Estimated Blood Loss: 0 The patient tolerated the procedure well and there were no complications.
--- NOTE | 2018-09-13 06:22 | P.PCN ---
Date of procedure: 09/13/18 Pre-op diagnosis: Shock Post-op diagnosis: same Procedure: Arterial line placement A time-out was completed verifying correct patient, procedure, site, positioning , and special equipment if applicable. The patients left groin was prepped and draped in sterile fashion. 1% Lidocaine was used to anesthetize the area. A 18G Arrow arterial line was introduced into the femoral artery. The catheter was threaded over the guide wire and the needle was removed with appropriate pulsatile blood return. The catheter was then sutured in place to the skin and a sterile dressing applied. Perfusion to the extremity distal to the point of catheter insertion was checked and found to be adequate. Estimated Blood Loss: 1ml The patient tolerated the procedure well and there were no complications.
[2018-09-13] MEDS: Sodium Bicarbonate 8.4% Inj 150 MEQ in Dextrose 5% in Water Inj 850 ML IV.CONT SCH ×6 (06:47→22:47)
--- NOTE | 2018-09-13 07:08 | XR ---
EXAM DATE: 09/13/2018 6:44 AM EDT AGE/SEX: 58 years / Female INDICATIONS: Post intubation CLINICAL DATA: This is the patient's subsequent encounter. Patient reports that signs and symptoms h ave been present for 1 day and indicates a pain score of Nonresponsive. MEDICAL/SURGICAL HISTORY: Diabetes. . AV fistula, left leg amputation, right leg femoral bypass COMPARISON: [facility], CHEST 1V SINGLE AP, 09/07/2018. . FINDINGS: ETT is approximately 4 mm above the valeria. Right IJ temporary dialysis catheter at the cavoatrial ju nction. Persistent mild left lung base and coronal opacity and diffuse interstitial prominence. Cardi omediastinal contours are stable. Stable left subclavian stent. Remainder of the exam is unchanged. CONCLUSION: 1. ETT 4 mm above the valeria. 2. Right IJ dialysis catheter in good position. 3. Persistent positive fluid balance. 4. Mild left lung base atelectasis/scarring. Electronically signed by: Antione Hernández MD 09/13/2018 7:07 AM EDT
[2018-09-13 07:43] LABS: Baso % (Auto) 0.1 % (0.0-2.0); Eos % (Auto) 0.1 % (0.0-4.0); Hematocrit 32.6 % (35.0-46.0); Hemoglobin 10.3 gm/dL (11.6-15.3); Lymph # (Auto) 0.3 th/mm3 (1.0-4.8); Lymph % (Auto) 2.2 % (9.0-44.0); Mean Corpuscular HGB Conc 31.5 % (32.0-36.0); Mean Corpuscular Hemoglobin 26.5 pg (27.0-34.0); Mean Platelet Volume 10.3 fL (7.0-11.0); Mono # (Auto) 0.2 th/mm3 (0.0-0.9); Mono % (Auto) 1.6 % (0.0-8.0); Platelet Count 169 th/mm3 (150-450); Red Blood Count 3.88 mil/mm3 (4.00-5.30); White Blood Count 14.6 th/mm3 (4.0-11.0)
[2018-09-13] MEDS: Heparin - SQ 10,000 UNITS/ML Vial SQ SCH ×2 (08:19→17:21)
[2018-09-13 08:24] LABS: Alanine Aminotransferase 43 U/L (10-53); Albumin 1.7 g/dL (3.4-5.0); Alkaline Phosphatase 244 U/L (45-117); Anion Gap 24 meq/L (5-15); Aspartate Aminotransferase 478 U/L (15-37); Blood Urea Nitrogen 46 mg/dL (7-18); Calcium 8.1 mg/dL (8.5-10.1); Carbon Dioxide 19.4 meq/L (21.0-32.0); Chloride 95 meq/L (98-107); Glomerular Filtration Rate 10 mL/min (>89); Glucose,Random 109 mg/dL (74-106); Magnesium 2.4 mg/dL (1.5-2.5); Phosphorus 7.9 mg/dL (2.5-4.9); Potassium 4.4 meq/L (3.5-5.1); Sodium 138 meq/L (136-145); Total Protein 6.7 g/dL (6.4-8.2)
[2018-09-13] MEDS: Senna/Docusate Sodium 8.6/50 MG Tablet PO SCH ×2 (09:27→21:17)
[2018-09-13] MEDS: Famotidine PF Inj 20 MG/2 ML Vial IV.PUSH SCH ×2 (09:27→21:17)
--- NOTE | 2018-09-13 09:33 | P.PNVS ---
Subjective Subjective/Hospital Course: 58/F with a PMH of ESRD on HD Pt s/p repair of LUE PSA and drainage of abscess Was informed by nursing staff that pt went into respiratory/cardiac arrest early this am Pt intubated and unresponsive Family member at the BS Objective Vital Signs / I&O: Vital Signs 09/12/18 10:00 09/12/18 12:00 09/12/18 14:00 Temperature 98 F Pulse Rate 89 90 92 H Respiratory Rate 9 L Blood Pressure 107/59 L Pulse Oximetry 100 09/12/18 16:00 09/12/18 19:45 09/12/18 20:00 Temperature 98.1 F 98.5 F Pulse Rate 87 90 Respiratory Rate 18 16 Blood Pressure 108/61 109/61 Pulse Oximetry 100 100 100 09/12/18 21:00 09/12/18 23:54 09/13/18 00:00 Temperature 99.2 F Pulse Rate 95 H 96 H Respiratory Rate 20 18 18 Blood Pressure 110/70 Pulse Oximetry 98 09/13/18 03:50 09/13/18 05:10 09/13/18 06:00 Temperature 98.6 F Pulse Rate 101 H 101 H Respiratory Rate 16 27 H Blood Pressure 80/55 L Pulse Oximetry 99 100 09/13/18 07:27 Temperature Pulse Rate Respiratory Rate 15 Blood Pressure Pulse Oximetry 100 Intake & Output 09/12/18 09/13/18 09/13/18 18:59 06:59 18:59 Output Total 0 / 0 Balance 0 / 0 Weight 55.5 kg Output: Urine 0 / 0 Other: Date of Last Bowel Movement 09/10/18 09/13/18 # Bowel Movements 0 3 Physical Exam: GENERAL: Intubated and unresponsive SKIN: Warm and dry CARDIOVASCULAR: Regular rate and rhythm without murmurs, gallops, or rubs. RESPIRATORY: ET tube in place/Pt on a mechanical ventilator GASTROINTESTINAL: Abdomen soft, non-tender, nondistended. MUSCULOSKELETAL: No cyanosis, or edema L BKA incision site with superficial opening with small amounts or white/yellow exudate L UE incision intact/ Strong multiphasic signals heard via Doppler R LE warm Laboratory Results - last 24 hr 09/12/18 09/12/18 09/13/18 12:59 16:56 03:44 WBC 11.0 RBC 4.32 Hgb 11.7 Hct 36.7 MCV 85.0 MCH 27.2 MCHC 32.0 RDW 19.3 H Plt Count 164 D MPV 11.3 H Neut % (Auto) Lymph % (Auto) [place] % (Auto) Eos % (Auto) Baso % (Auto) Neut # (Auto) Lymph # (Auto) [place] # (Auto) Eos # (Auto) Baso # (Auto) WBC Differential Differential Comment Puncture Site Patient Temperature O2 Saturation ABG pH ABG pCO2 ABG pO2 ABG HCO3 ABG O2 Content ABG Base Excess ABG Methemoglobin Kyler Test Hemoglobin Carboxyhemoglobin O2 Delivery Device Liter Flow Vent Setting Inspired O2 Critical Value Sodium 136 Potassium 4.7 Chloride 95 L Carbon Dioxide 30.4 Anion Gap 11 BUN 39 H Creatinine 4.83 H Estimated GFR 11 L POC Glucose 128 H Random Glucose 105 Calcium 8.8 Phosphorus Magnesium Total Bilirubin AST ALT Alkaline Phosphatase Troponin I Total Protein Albumin 09/13/18 09/13/18 09/13/18 03:44 04:07 04:21 WBC RBC Hgb Hct MCV MCH MCHC RDW Plt Count MPV Neut % (Auto) Lymph % (Auto) [place] % (Auto) Eos % (Auto) Baso % (Auto) Neut # (Auto) Lymph # (Auto) [place] # (Auto) Eos # (Auto) Baso # (Auto) WBC Differential Differential Comment Puncture Site Patient Temperature O2 Saturation ABG pH ABG pCO2 ABG pO2 ABG HCO3 ABG O2 Content ABG Base Excess ABG Methemoglobin Kyler Test Hemoglobin Carboxyhemoglobin O2 Delivery Device Liter Flow Vent Setting Inspired O2 Critical Value Sodium 134 L Potassium 5.4 H Chloride 94 L Carbon Dioxide 22.5 Anion Gap 18 H BUN 46 H Creatinine 5.65 H Estimated GFR 9 L POC Glucose 84 89 Random Glucose 108 H Calcium 8.8 Phosphorus Magnesium Total Bilirubin AST ALT Alkaline Phosphatase Troponin I Total Protein Albumin 09/13/18 09/13/18 09/13/18 04:27 06:01 06:25 WBC RBC Hgb Hct MCV MCH MCHC RDW Plt Count MPV Neut % (Auto) Lymph % (Auto) [place] % (Auto) Eos % (Auto) Baso % (Auto) Neut # (Auto) Lymph # (Auto) [place] # (Auto) Eos # (Auto) Baso # (Auto) WBC Differential Differential Comment Puncture Site Right radial Art line Patient Temperature 98.6 98.6 O2 Saturation 96 97 ABG pH 7.28 L* 7.30 L ABG pCO2 30 L 31 L ABG pO2 155 H 297 H ABG HCO3 14 L* 15 L* ABG O2 Content 15.1 14.6 ABG Base Excess -11.8 L -10.1 L ABG Methemoglobin 1.7 1.4 Kyler Test Present Present Hemoglobin 11.0 L 10.2 L Carboxyhemoglobin 0.9 0.7 O2 Delivery Device Nasal cannula Ventilator Liter Flow 4.00 Vent Setting Prvc15/450/1.0/+5 Inspired O2 36 100 Critical Value Yes Yes Sodium Potassium Chloride Carbon Dioxide Anion Gap BUN Creatinine Estimated GFR POC Glucose Random Glucose Calcium Phosphorus Magnesium Total Bilirubin AST ALT Alkaline Phosphatase Troponin I 0.45 H Total Protein Albumin 09/13/18 09/13/18 09/13/18 07:15 07:15 07:51 WBC 14.6 H RBC 3.88 L Hgb 10.3 L Hct 32.6 L MCV 84.0 MCH 26.5 L MCHC 31.5 L RDW 19.0 H Plt Count 169 MPV 10.3 Neut % (Auto) 96.0 H Lymph % (Auto) 2.2 L [place] % (Auto) 1.6 Eos % (Auto) 0.1 Baso % (Auto) 0.1 Neut # (Auto) 14.0 H Lymph # (Auto) 0.3 L [place] # (Auto) 0.2 Eos # (Auto) 0.0 Baso # (Auto) 0.0 WBC Differential . Differential Comment Auto diff final Puncture Site Patient Temperature O2 Saturation ABG pH ABG pCO2 ABG pO2 ABG HCO3 ABG O2 Content ABG Base Excess ABG Methemoglobin Kyler Test Hemoglobin Carboxyhemoglobin O2 Delivery Device Liter Flow Vent Setting Inspired O2 Critical Value Sodium 138 Potassium 4.4 D Chloride 95 L Carbon Dioxide 19.4 L Anion Gap 24 H BUN 46 H Creatinine 5.48 H Estimated GFR 10 L POC Glucose 89 Random Glucose 109 H Calcium 8.1 L Phosphorus 7.9 H Magnesium 2.4 Total Bilirubin 1.4 H AST 478 H ALT 43 Alkaline Phosphatase 244 H Troponin I Total Protein 6.7 Albumin 1.7 L Microbiology 09/11/18 08:30 Aerobic Blood Culture - Preliminary Blood - Peripheral No growth in 1 day Anaerobic Blood Culture - Final QNS - See aerobic report. 09/11/18 08:39 Aerobic Blood Culture - Preliminary Blood - Peripheral No growth in 1 day Anaerobic Blood Culture - Preliminary No growth in 1 day 09/09/18 03:55 Aerobic Blood Culture - Final Blood - Peripheral S. aureus MRSA Anaerobic Blood Culture - Final S. aureus MRSA 09/09/18 03:47 Aerobic Blood Culture - Final Blood - Peripheral S. aureus MRSA Anaerobic Blood Culture - Final S. aureus MRSA Impressions Extremity Arterial Study 09/10/18 00:00 CONCLUSION: 1. Findings discerning for significant right lower extremity ischemia and likely occlusion of the right femoral to popliteal bypass graft with nearly flat waveforms and unobtainable pressures. 2. Status post left BKA. Chest X-Ray 09/13/18 06:44 CONCLUSION: 1. ETT 4 mm above the valeria. 2. Right IJ dialysis catheter in good position. 3. Persistent positive fluid balance. 4. Mild left lung base atelectasis/scarring. Assessment and Plan - Assessment (1) Abscess of upper extremity Code(s): L02.419 - Cutaneous abscess of limb, unspecified Status: Acute (2) Toxic metabolic encephalopathy Code(s): G92 - Toxic encephalopathy Status: Acute (3) Severe sepsis Code(s): A41.9 - Sepsis, unspecified organism; R65.20 - Severe sepsis without septic shock Status: Acute (4) PAD (peripheral artery disease) Code(s): I73.9 - Peripheral vascular disease, unspecified Status: Chronic - Plan Left upper extremity abscess, infected hematoma. S/P excision of infected PSA. Doing well Appreciate Dr. Borden's input. Patient is at risk of developing steal syndrome requiring banding. Right lower extremity peripheral vascular disease Stable with no acute limb ischemia. LBKA stump Continue with local wound care. May need revision in the future. Sho Kelly NP [facility] [phone] - Attending Attestation I saw and examined the patient agree with MAT INSPECTOR A/P date of service 09/13/18
--- NOTE | 2018-09-13 10:39 | P.PNNP ---
Subjective Interval history: she was seen during dialysis. ON 2K, UF goal is about 2500 ml. She is now intubated, unresponsive. Right IJ VasCath is currently cannulated for dialysis. Code blue called earlier. Doing poorly. Physical Exam Vital signs: Vital Signs 09/12/18 12:00 09/12/18 14:00 09/12/18 16:00 Temperature 98 F 98.1 F Pulse Rate 90 92 H 87 Respiratory Rate 9 L 18 Blood Pressure 107/59 L 108/61 Pulse Oximetry 100 100 09/12/18 19:45 09/12/18 20:00 09/12/18 21:00 Temperature 98.5 F Pulse Rate 90 Respiratory Rate 16 20 Blood Pressure 109/61 Pulse Oximetry 100 100 09/12/18 23:54 09/13/18 00:00 09/13/18 03:50 Temperature 99.2 F 98.6 F Pulse Rate 95 H 96 H 101 H Respiratory Rate 18 18 16 Blood Pressure 110/70 80/55 L Pulse Oximetry 98 99 09/13/18 05:10 09/13/18 05:16 09/13/18 05:20 Temperature Pulse Rate 92 H 149 H 150 H Respiratory Rate 16 12 14 Blood Pressure 85/51 L 207/105 H 205/109 H Pulse Oximetry 100 100 09/13/18 05:22 09/13/18 05:25 09/13/18 05:31 Temperature Pulse Rate 159 H 150 H 146 H Respiratory Rate 15 15 28 H Blood Pressure 201/99 H 175/102 H 156/102 H Pulse Oximetry 09/13/18 05:35 09/13/18 05:41 09/13/18 05:45 Temperature Pulse Rate 126 H 133 H 133 H Respiratory Rate 28 H 26 H 24 Blood Pressure 141/79 H 115/81 114/83 Pulse Oximetry 09/13/18 05:50 09/13/18 05:55 09/13/18 06:00 Temperature Pulse Rate 135 H 139 H 101 H Respiratory Rate 24 25 H 20 Blood Pressure 113/79 108/76 108/70 Pulse Oximetry 09/13/18 06:05 09/13/18 06:10 09/13/18 06:15 Temperature Pulse Rate 96 H 96 H 96 H Respiratory Rate 20 18 18 Blood Pressure 138/76 123/72 112/68 Pulse Oximetry 100 100 09/13/18 06:20 09/13/18 06:25 09/13/18 06:30 Temperature Pulse Rate 96 H 94 H 94 H Respiratory Rate 17 16 16 Blood Pressure 111/68 106/65 105/65 Pulse Oximetry 100 100 09/13/18 06:35 09/13/18 06:40 09/13/18 06:45 Temperature Pulse Rate 94 H 102 H 98 H Respiratory Rate 18 17 Blood Pressure 105/65 126/72 116/64 Pulse Oximetry 100 100 100 09/13/18 07:00 09/13/18 07:27 09/13/18 08:00 Temperature 98.3 F Pulse Rate 96 H 99 H Respiratory Rate 16 15 15 Blood Pressure 132/70 120/71 Pulse Oximetry 100 100 100 09/13/18 09:00 09/13/18 10:00 Temperature Pulse Rate 99 H 95 H Respiratory Rate 13 15 Blood Pressure 122/78 109/65 Pulse Oximetry 100 100 Intake & Output 09/12/18 09/13/18 09/13/18 18:59 06:59 18:59 Output Total 0 / 0 Balance 0 / 0 Weight 55.5 kg Output: Urine 0 / 0 Other: Date of Last Bowel Movement 09/10/18 09/13/18 # Bowel Movements 0 3 Narrative: On the vent. Unresponsive. Chest: vented breath sounds bilaterally, no rhonchi, no wheezing. Heart: RRR. 3/6 systolic murmur. No edema. s/p left BKA. Chronic ischemia right lower extremity. Assessment and Plan - Assessment (1) ESRD (end stage renal disease) Code(s): N18.6 - End stage renal disease Status: Chronic Plan: HD MWF. Seen during dialysis today. If she is NPO, start D10NS at 20 ml/hour for hyperkalemia. K+ stable She is s/p repair/excision of infected pseudoaneurysm of AVF, with apparent interposition bovine graft. Discussed with Dr. Hayes - appreciate assistance. Fistula pseudo aneuryms grossly infected. Previous steal history - no apparent signs of steal at this point. Currently with non-tunneled HD catheter, will need to change to tunneled catheter when blood cultures clear. On Renvela for hyperphosphatemia. ---- (2) Hyperkalemia Code(s): E87.5 - Hyperkalemia Status: Acute Plan: Improved. Monitor. Should be on low potassium diet. If NPO, she should be on D10NS. (3) Altered mental status Code(s): R41.82 - Altered mental status, unspecified Status: Acute Plan: Could be due to uremia, but also could be due to sepsis. Supportive care. Monitor. Improving. (4) Renal mass Code(s): N28.89 - Other specified disorders of kidney and ureter Status: Acute Plan: Renal mass has grown in size, most likely malignancy. Urology note reviewed, to follow up after discharge. (5) Severe sepsis Code(s): A41.9 - Sepsis, unspecified organism; R65.20 - Severe sepsis without septic shock Status: Acute Plan: MRSA sepsis, endocarditis. MRI of the brain negative for septic emboli. She has mitral valve vegetation. On Vancomycin. s/p excision of infected pseudoaneurysm of AVF. (6) CAD (coronary artery disease) Code(s): I25.10 - Atherosclerotic heart disease of [place] coronary artery without angina pectoris Status: Chronic (7) PAD (peripheral artery disease) Code(s): I73.9 - Peripheral vascular disease, unspecified Status: Chronic Plan: s/p left BKA. Poor circulation of right lower extremity. (8) DM2 (diabetes mellitus, type 2) Code(s): E11.9 - Type 2 diabetes mellitus without complications Status: Chronic Plan: maintain blood glucose between 140 and 180 while hospitalized.
[2018-09-13] MEDS ORDERED: Sodium Bicarbonate 8.4% Inj 50 MEQ/50 ML Syringe IV.PUSH ONE (11:14)
[2018-09-13] MEDS: Vancomycin Inj 1,000 MG in Sodium Chlor 0.9% Inj 250 ML IV.SIG SCH (11:20)
[2018-09-13] MEDS: Heparin 10,000 UNITS/10 ML Vial (for IV use) OTHER PRN (11:21)
--- NOTE | 2018-09-13 12:38 | P.PNID ---
Subjective Remarks: last set of NGTD @ 2days events from this am noted: sp code about 5 am back to ICU patient developped hypotension and hypoxemia was immediately reintubated . Shortly after intubation the patient was pulseless and 1 cycle of CPR was performed including one injection of epinephrine, chest compressions, and sodium bicarbonate injections. remains unresponsive stroke suspected, plan to go to CT after HD sp repair of infected psedoaneurism of AV fistula 2 D echo with MV vegetation afebrile Antibiotics: vancomycin Allergies/Adverse Reactions: Allergies latex Allergy (Severe, Unverified 09/06/18 11:19) Edema RASH Objective Vital Signs 09/12/18 14:00 09/12/18 16:00 09/12/18 19:45 Temperature 98.1 F Pulse Rate 92 H 87 Respiratory Rate 18 Blood Pressure 108/61 Pulse Oximetry 100 100 09/12/18 20:00 09/12/18 21:00 09/12/18 23:54 Temperature 98.5 F 99.2 F Pulse Rate 90 95 H Respiratory Rate 16 20 18 Blood Pressure 109/61 110/70 Pulse Oximetry 100 98 09/13/18 00:00 09/13/18 03:50 09/13/18 05:10 Temperature 98.6 F Pulse Rate 96 H 101 H 92 H Respiratory Rate 18 16 16 Blood Pressure 80/55 L 85/51 L Pulse Oximetry 99 100 09/13/18 05:16 09/13/18 05:20 09/13/18 05:22 Temperature Pulse Rate 149 H 150 H 159 H Respiratory Rate 12 14 15 Blood Pressure 207/105 H 205/109 H 201/99 H Pulse Oximetry 100 09/13/18 05:25 09/13/18 05:31 09/13/18 05:35 Temperature Pulse Rate 150 H 146 H 126 H Respiratory Rate 15 28 H 28 H Blood Pressure 175/102 H 156/102 H 141/79 H Pulse Oximetry 09/13/18 05:41 09/13/18 05:45 09/13/18 05:50 Temperature Pulse Rate 133 H 133 H 135 H Respiratory Rate 26 H 24 24 Blood Pressure 115/81 114/83 113/79 Pulse Oximetry 09/13/18 05:55 09/13/18 06:00 09/13/18 06:05 Temperature Pulse Rate 139 H 101 H 96 H Respiratory Rate 25 H 20 20 Blood Pressure 108/76 108/70 138/76 Pulse Oximetry 100 09/13/18 06:10 09/13/18 06:15 09/13/18 06:20 Temperature Pulse Rate 96 H 96 H 96 H Respiratory Rate 18 18 17 Blood Pressure 123/72 112/68 111/68 Pulse Oximetry 100 09/13/18 06:25 09/13/18 06:30 09/13/18 06:35 Temperature Pulse Rate 94 H 94 H 94 H Respiratory Rate 16 16 Blood Pressure 106/65 105/65 105/65 Pulse Oximetry 100 100 100 09/13/18 06:40 09/13/18 06:45 09/13/18 07:00 Temperature Pulse Rate 102 H 98 H 96 H Respiratory Rate 18 17 16 Blood Pressure 126/72 116/64 132/70 Pulse Oximetry 100 100 100 09/13/18 07:27 09/13/18 08:00 09/13/18 09:00 Temperature 98.3 F Pulse Rate 99 H 99 H Respiratory Rate 15 15 13 Blood Pressure 120/71 122/78 Pulse Oximetry 100 100 100 09/13/18 10:00 09/13/18 12:00 Temperature 97.5 F L Pulse Rate 95 H 83 Respiratory Rate 15 Blood Pressure 109/65 Pulse Oximetry 100 Intake & Output 09/12/18 09/13/18 09/13/18 18:59 06:59 18:59 Output Total 0 / 0 3000 / 3000 Balance 0 / 0 -3000 / -3000 Weight 55.5 kg Output: Urine 0 / 0 Hemodialysis Amount 3000 / 3000 Other: Date of Last Bowel Movement 09/10/18 09/13/18 # Bowel Movements 0 3 09/11/18 08:30 Blood - Peripheral Aerobic Blood Culture - Preliminary No growth in 2 days 09/11/18 08:30 Blood - Peripheral Anaerobic Blood Culture - Final QNS - See aerobic report. 09/11/18 08:39 Blood - Peripheral Aerobic Blood Culture - Preliminary No growth in 2 days 09/11/18 08:39 Blood - Peripheral Anaerobic Blood Culture - Preliminary No growth in 2 days 09/09/18 03:55 Blood - Peripheral Aerobic Blood Culture - Final S. aureus MRSA 09/09/18 03:55 Blood - Peripheral Anaerobic Blood Culture - Final S. aureus MRSA 09/09/18 03:47 Blood - Peripheral Aerobic Blood Culture - Final S. aureus MRSA 09/09/18 03:47 Blood - Peripheral Anaerobic Blood Culture - Final S. aureus MRSA 09/09/18 11:20 Wound - Arm Gram Stain - Final 09/09/18 11:20 Wound - Arm Wound Culture - Final S. aureus MRSA 09/09/18 11:20 Wound - Arm Acid Fast Bacilli Smear - Final No acid fast bacilli seen 09/09/18 11:20 Wound - Arm Mycobacterial Culture - Pending 09/09/18 11:20 Wound - Arm Fungal Smear - Final No fungal elements seen 09/09/18 11:20 Wound - Arm Fungal Culture - Pending Lab - Hematology Results 09/13/18 09/13/18 03:44 07:15 WBC 11.0 14.6 H RBC 4.32 3.88 L Hgb 11.7 10.3 L Hct 36.7 32.6 L MCV 85.0 84.0 MCH 27.2 26.5 L MCHC 32.0 31.5 L RDW 19.3 H 19.0 H Plt Count 164 D 169 MPV 11.3 H 10.3 Neut % (Auto) 96.0 H Lymph % (Auto) 2.2 L [place] % (Auto) 1.6 Eos % (Auto) 0.1 Baso % (Auto) 0.1 Neut # (Auto) 14.0 H Lymph # (Auto) 0.3 L [place] # (Auto) 0.2 Eos # (Auto) 0.0 Baso # (Auto) 0.0 WBC Differential . Differential Comment Auto diff final Lab - Chemistry Results 09/11/18 09/11/18 09/12/18 15:47 20:06 08:21 Sodium Potassium Chloride Carbon Dioxide Anion Gap BUN Creatinine Estimated GFR POC Glucose 206 H 186 H 98 Random Glucose Calcium Phosphorus Magnesium Total Bilirubin AST ALT Alkaline Phosphatase Troponin I Total Protein Albumin 09/12/18 09/12/18 09/13/18 12:59 16:56 03:44 Sodium 136 134 L Potassium 4.7 5.4 H Chloride 95 L 94 L Carbon Dioxide 30.4 22.5 Anion Gap 11 18 H BUN 39 H 46 H Creatinine 4.83 H 5.65 H Estimated GFR 11 L 9 L POC Glucose 128 H Random Glucose 105 108 H Calcium 8.8 8.8 Phosphorus Magnesium Total Bilirubin AST ALT Alkaline Phosphatase Troponin I Total Protein Albumin 09/13/18 09/13/18 09/13/18 04:07 04:21 06:25 Sodium Potassium Chloride Carbon Dioxide Anion Gap BUN Creatinine Estimated GFR POC Glucose 84 89 Random Glucose Calcium Phosphorus Magnesium Total Bilirubin AST ALT Alkaline Phosphatase Troponin I 0.45 H Total Protein Albumin 09/13/18 09/13/18 09/13/18 07:15 07:51 11:06 Sodium 138 Potassium 4.4 D Chloride 95 L Carbon Dioxide 19.4 L Anion Gap 24 H BUN 46 H Creatinine 5.48 H Estimated GFR 10 L POC Glucose 89 130 H Random Glucose 109 H Calcium 8.1 L Phosphorus 7.9 H Magnesium 2.4 Total Bilirubin 1.4 H AST 478 H ALT 43 Alkaline Phosphatase 244 H Troponin I Total Protein 6.7 Albumin 1.7 L Imaging: ITS Impressions Abdomen/Pelvis CT 09/06/18 11:10 CONCLUSION: 1. Moderate stool in the rectum. No dilated loops of bowel to suggest obstruction. 2. Persistent large solid mass arising from the superior pole the right kidney measuring up to 6.2 cm. This is a renal cell carcinoma until proven otherwise. 3. End-stage appearing kidneys bilaterally. 4. Prominent diffuse vascular calcifications. Head CT 09/06/18 11:10 CONCLUSION: 1. Atrophy and atherosclerosis. . Head MRI 09/08/18 00:00 CONCLUSION: 1. No acute findings. No recent infarct. Mild chronic white matter ischemic changes in the periventricular region. Upper Extremity Ultrasound 09/09/18 00:00 CONCLUSION: Mixed echogenicity collection around the proximal fistula outflow in the medial left upper arm. Arterial Ultrasound 09/10/18 00:00 CONCLUSION: 1. Right iliofemoral and femoral popliteal bypass grafts appear to be occluded. 2. Occlusion of the [place] [place] superficial femoral and popliteal arteries. Proximal trifurcation vessels also appear to be occluded. 3. Monophasic signal in the right external iliac, common femoral and profunda femoral arteries. 4. CTA abdomen and runoff could be performed for anatomic characterization if clinically warranted. Catheter Placement 09/10/18 00:00 CONCLUSION: 1. Uncomplicated line placement as above. The patient has an occluded right internal jugular vein. This catheter was placed in the external jugular vein. Extremity Arterial Study 09/10/18 00:00 CONCLUSION: 1. Findings discerning for significant right lower extremity ischemia and likely occlusion of the right femoral to popliteal bypass graft with nearly flat waveforms and unobtainable pressures. 2. Status post left BKA. Chest X-Ray 09/13/18 06:44 CONCLUSION: 1. ETT 4 mm above the valeria. 2. Right IJ dialysis catheter in good position. 3. Persistent positive fluid balance. 4. Mild left lung base atelectasis/scarring. Physical Exam: GENERAL: NAD SKIN: Warm and dry. HEAD: Atraumatic. Normocephalic. EYES: diconjugated gaze ENT: No nasal bleeding or discharge. Mucous membranes pink and moist. NECK: Trachea midline. No JVD. CARDIOVASCULAR: Regular rate and rhythm. + murmur 3/6 systolic RESPIRATORY: No accessory muscle use. Clear to auscultation. Breath sounds equal bilaterally. GASTROINTESTINAL: Abdomen soft, non-tender, nondistended. Hepatic and splenic margins not palpable. MUSCULOSKELETAL: Extremities without clubbing, cyanosis, or edema. L BKA: opening in the middle of incision, draining white pus cold to touch R foot, not refilling, pulseless L UE I dressing in place with small amount of serosang dc NEUROLOGICAL: pt is comatose; completely unresponsive to verbal stimuli, but seems to moan to noxious stimalation not moving extremeties PSYCHIATRIC: unable to assess LINES: vascath in place R chest Assessment and Plan - Plan New issue: sp code ? stroke MRSA sepsis: souce MV endocarditis MV endocartditis AMS no septic emboli HD, non comliance came with electrolytes imbalance Ischemic R foot - vasc surgery ff Non healing L BKA site. Needs revision no acute ischemia h/o RLE ileofemoral and fem pop bypass in Feb 2018 Infected psuedoaneurism of R UE AVF - sp repair Xray of LLE stump to eval for osteo cont vancomycin w HD keep trough levels 15-20; trough remains low will increasde dose of vancomycin rechk random level declan RN
[2018-09-13] MEDS ORDERED: Vancomycin Inj 1,250 MG in Sodium Chlor 0.9% Inj 250 ML IV.SIG SCH (12:40)
--- NOTE | 2018-09-13 12:43 | CT ---
EXAM DATE: 09/13/2018 11:41 AM EDT AGE/SEX: 58 years / Female INDICATIONS: Altered mental status. CLINICAL DATA: This is the patient's initial encounter. Patient reports that signs and symptoms have been present for 1 day and indicates a pain score of Nonresponsive. MEDICAL/SURGICAL HISTORY: Diabetes. Hypertension. None. RADIATION DOSE: 56.35 CTDI (mGy) COMPARISON: [facility] [place], MR HEAD W/O CONTRAST, 09/08/2018. . TECHNIQUE: CT of the head without contrast. Using automated exposure control and adjustment of the mA and/or kV according to patient size, radiation dose was kept as low as reasonably achievable to ob tain optimal diagnostic quality images. DICOM format image data is available electronically for revi ew and comparison. FINDINGS: Cerebrum: Moderate diffuse cerebral atrophy. The ventricles are normal for degree of atrophy. Mild-t o-moderate periventricular white matter hypodensities. No evidence of midline shift, mass lesion, hem orrhage or acute infarction. No extraaxial fluid collections are seen. Posterior Fossa: The cerebellum and brainstem are intact. The 4th ventricle is midline. The cerebe llopontine angle is unremarkable. Extracranial: The visualized portion of the orbits is intact. Extensive vascular calcifications. Pro gressive mucoperiosteal thickening in the right maxillary sinus. Skull: The calvaria is intact. No evidence of skull fracture. CONCLUSION: 1. No acute intracranial abnormality. 2. Progressive right maxillary sinus mucosal disease. . Electronically signed by: Antione Hernández MD 09/13/2018 12:42 PM EDT
--- NOTE | 2018-09-13 14:41 | XR ---
EXAM DATE: 09/13/2018 12:00 AM EDT AGE/SEX: 58 years / Female INDICATIONS: Evaluate for osteomyelitis CLINICAL DATA: This is the patient's initial encounter. Patient reports that signs and symptoms have been present for 1 day and indicates a pain score of Nonresponsive. MEDICAL/SURGICAL HISTORY: Diabetes. None. COMPARISON: [facility] – [place], FOOT LEFT COMPLETE ([id number]), 06/14/2017. . FINDINGS: Status post a below the knee amputation. The bony structures are grossly intact. There is no evidence of any cortical erosion or bony destruction to suggest osteomyelitis. There is no evidence of a join t effusion at the knee joint. There is good alignment at the knee joint. There are vascular calcifica tions in the soft tissues consistent with peripheral vascular disease. The surgical margin at the amp utation site appears to be smooth. There may be a soft tissue erosion near the base of the amputation . CONCLUSION: 1. Status post below the knee amputation. 2. No evidence to suggest osteomyelitis. 3. Possible soft tissue erosion at the base of the amputation. Electronically signed by: Ezequiel Vázquez MD 09/13/2018 2:40 PM EDT
[2018-09-14] MEDS: Morphine Inj 4 MG/ML Vial IV.PUSH PRN ×2 (02:17→20:35)
[2018-09-14] MEDS: Heparin - SQ 10,000 UNITS/ML Vial SQ SCH ×2 (06:33→17:21)
[2018-09-14] MEDS: Sodium Bicarbonate 8.4% Inj 150 MEQ in Dextrose 5% in Water Inj 850 ML IV.CONT SCH ×2 (06:33)
[2018-09-14] MEDS: Insulin NovoLOG Aspart Correctional Sugar Inj SQ SCH ×3 (08:54→18:08)
[2018-09-14] MEDS: Famotidine PF Inj 20 MG/2 ML Vial IV.PUSH SCH ×2 (08:55→20:35)
[2018-09-14] MEDS: Senna/Docusate Sodium 8.6/50 MG Tablet PO SCH ×2 (08:56→20:36)
[2018-09-14 09:33] LABS: Baso % (Auto) 0.3 % (0.0-2.0); Eos % (Auto) 0.1 % (0.0-4.0); Hematocrit 29.5 % (35.0-46.0); Hemoglobin 9.8 gm/dL (11.6-15.3); Lymph # (Auto) 0.8 th/mm3 (1.0-4.8); Lymph % (Auto) 5.6 % (9.0-44.0); Mean Corpuscular HGB Conc 33.2 % (32.0-36.0); Mean Corpuscular Hemoglobin 26.8 pg (27.0-34.0); Mean Corpuscular Volume 80.6 fL (80.0-100.0); Mean Platelet Volume 10.5 fL (7.0-11.0); Mono # (Auto) 0.3 th/mm3 (0.0-0.9); Mono % (Auto) 2.4 % (0.0-8.0); Neut # (Auto) 12.5 th/mm3 (1.8-7.7); Neut % (Auto) 91.6 % (16.0-70.0); Platelet Count 199 th/mm3 (150-450); Red Blood Count 3.67 mil/mm3 (4.00-5.30); White Blood Count 13.6 th/mm3 (4.0-11.0)
[2018-09-14 10:14] LABS: Alanine Aminotransferase 164 U/L (10-53); Albumin 1.6 g/dL (3.4-5.0); Alkaline Phosphatase 238 U/L (45-117); Anion Gap 10 meq/L (5-15); Aspartate Aminotransferase 1650 U/L (15-37); Blood Urea Nitrogen 32 mg/dL (7-18); Carbon Dioxide 37.5 meq/L (21.0-32.0); Chloride 92 meq/L (98-107); Glomerular Filtration Rate 14 mL/min (>89); Glucose,Random 241 mg/dL (74-106); Sodium 139 meq/L (136-145); Total Protein 6.1 g/dL (6.4-8.2)
--- NOTE | 2018-09-14 10:17 | P.PNCC ---
Subjective Subjective Remarks/Hospital Course: No history is obtainable from the patient due to altered mental status. All history obtained from chart review and discussion with ED attending. Patient is a 58-year-old -[place] female with past medical history of type 2 diabetes, hypertension, hyperlipidemia, ESRD on HD M/W/F, CHF Echo 03/22/07 EF 30 -35%, CAD, s/p LAD stent 06/08, status post left BKA. Patient was brought to the emergency department by EMS for altered mental status. Apparently patient was found lying on the floor between 2 dressers, missed two dialysis appointments. CT of the head was negative for acute findings chest x-ray showed pulmonary vascular congestion, left lower lobe atelectasis. CT abdomen pelvis showed large 6.2 cm renal mass which has grown in size since last scan in Nov 2017, and suspicious for renal cell carcinoma. Her WBC count was 23.4 with left shift, with altered mental status this was most likely secondary to severe sepsis. Patient was empirically given vancomycin and Zosyn in the ED after getting blood cultures. Also her potassium was 6.3 patient is receiving bicarb now and nephrology had been contacted for stat dialysis I evaluated the patient in the emergency department. Patient is very lethargic encephalopathic. She mumbles a few words but did not follow commands. Even though very lethargic at this point she is protecting airway. In addition to IV bicarb I will also give 5 units of insulin and IV dextrose. Antibiotics will be continued-renally dosed vancomycin and Zosyn. Will request nephrology and urology consult. At this time critically ill with severe sepsis. SUBJ 09/07: Patient is lying in bed mental status seems to be improved alert oriented x2 today. Potassium is 5.3 chest x-ray shows pulmonary edema. Will request for repeat hemodialysis today 09/13: Rapid response team activated for patient hypotension and hypoxemia. After transfer to ICU I have found patient in agonal breathing and immediately intubated her with 7.5 ET tube. Shortly after intubation the patient was pulseless and 1 cycle of CPR was performed including one injection of epinephrine, chest compressions, and sodium bicarbonate injections. Family notified about the critical condition. 09/14: Remains encephalopathic, orally intubated on mechanical ventilation. Objective Vital Signs / I&O: Vital Signs 09/13/18 11:00 09/13/18 12:00 09/13/18 12:16 Temperature 97.5 F L Pulse Rate 90 83 85 Respiratory Rate 15 15 15 Blood Pressure 91/58 L 153/79 H 109/62 Pulse Oximetry 100 100 100 09/13/18 12:29 09/13/18 12:39 09/13/18 12:43 Temperature Pulse Rate 84 82 84 Respiratory Rate 0 L 22 0 L Blood Pressure 131/70 173/81 H 156/77 H Pulse Oximetry 100 100 100 09/13/18 12:45 09/13/18 12:48 09/13/18 12:51 Temperature Pulse Rate 83 88 86 Respiratory Rate 15 18 15 Blood Pressure 159/86 H 160/70 H 146/92 H Pulse Oximetry 100 100 100 09/13/18 12:54 09/13/18 12:57 09/13/18 13:00 Temperature Pulse Rate 83 84 82 Respiratory Rate 15 15 15 Blood Pressure 122/61 120/65 122/67 Pulse Oximetry 100 100 100 09/13/18 14:00 09/13/18 15:00 09/13/18 15:33 Temperature 97.7 F Pulse Rate 79 80 Respiratory Rate 15 15 15 Blood Pressure 120/64 125/65 Pulse Oximetry 100 100 100 09/13/18 16:00 09/13/18 17:00 09/13/18 19:00 Temperature Pulse Rate 77 82 80 Respiratory Rate 15 15 15 Blood Pressure 125/65 133/65 113/61 Pulse Oximetry 100 100 100 09/13/18 19:38 09/13/18 20:00 09/13/18 21:00 Temperature 98.1 F Pulse Rate 80 78 Respiratory Rate 15 16 15 Blood Pressure 118/65 118/64 Pulse Oximetry 100 100 100 09/13/18 22:00 09/13/18 23:00 09/13/18 23:10 Temperature Pulse Rate 80 83 Respiratory Rate 17 15 15 Blood Pressure 135/65 126/64 Pulse Oximetry 100 100 100 09/14/18 00:00 09/14/18 01:00 09/14/18 02:00 Temperature 98.1 F Pulse Rate 79 79 83 Respiratory Rate 15 15 23 Blood Pressure 114/62 114/59 L 135/68 Pulse Oximetry 100 100 100 09/14/18 03:00 09/14/18 04:00 09/14/18 04:40 Temperature 98.6 F Pulse Rate 83 82 Respiratory Rate 22 15 18 Blood Pressure 142/66 H 134/72 Pulse Oximetry 100 100 100 09/14/18 05:00 09/14/18 06:00 09/14/18 07:00 Temperature Pulse Rate 82 79 79 Respiratory Rate 15 15 15 Blood Pressure 148/71 H 138/67 137/63 Pulse Oximetry 100 100 100 09/14/18 07:16 09/14/18 08:00 09/14/18 09:00 Temperature 97.7 F Pulse Rate 83 79 Respiratory Rate 15 15 13 Blood Pressure 147/77 H 123/65 Pulse Oximetry 100 100 100 Intake & Output 09/13/18 09/14/18 09/14/18 18:59 06:59 18:59 Intake Total 1464 / 1464 2099 Output Total 3000 / 3000 Balance -1536 / -1536 2099 Weight 45 kg Intake: IV 1364 / 1364 1999 / 1999 Sodium Bicarbonate 8.4% Inj 150 1000 / 1000 2000 / 2000 MEQ In D5W Inj 850 ML @ 125 mls/hr IV.CONT .Q8H [facility] Rx#: [id number] Levophed-Dextrose 4 mg/250 ml 114 / 114 Drip 4 mg In 250 ml @ 2 MCG/MIN 7.5 mls/hr IV.SIG TITRATE PRN Rx#:[id number] Vancomycin Inj 1,000 MG In NS 250 / 250 Inj 250 ML @ 250 mls/hr IV.SIG WITH DIALYSIS [facility] Rx#:[id number] Water Bolus Amount 100 / 100 100 / 100 Output: Hemodialysis Amount 3000 / 3000 Other: Date of Last Bowel Movement 09/13/18 09/14/18 09/14/18 # Bowel Movements 1 3 Result Diagrams: 09/14/18 09:00 09/13/18 07:15 Objective Remarks: GENERAL: 58-year-old AA female, lying in bed intubated and occasional eye opening however not following commands SKIN: Warm and dry. HEAD: Atraumatic. Normocephalic. EYES: Pupils equal and round, 2 mm reactive. No scleral icterus. ENT: No nasal bleeding or discharge. Mucous membranes dry. NECK: Trachea midline. No JVD. CARDIOVASCULAR: RRR. S1, S2 no S4. 2/6 pansystolic murmur RESPIRATORY: On mechanical ventilation, clear to auscultation. No wheezes rales or rhonchi. Diminished air entry at the bases GASTROINTESTINAL: Abdomen soft, non-tender, nondistended. MUSCULOSKELETAL: AV fistula in left upper arm with palpable thrill. s/p L BKA NEUROLOGICAL: Encephalopathic, orally intubated on mechanical ventilation, occasional eye opening, not following commands. Assessment and Plan - Problem List (1) Toxic metabolic encephalopathy Code(s): G92 - Toxic encephalopathy Status: Acute (2) Severe sepsis Code(s): A41.9 - Sepsis, unspecified organism; R65.20 - Severe sepsis without septic shock Status: Acute (3) Altered mental status Code(s): R41.82 - Altered mental status, unspecified Status: Acute (4) Hyperkalemia Code(s): E87.5 - Hyperkalemia Status: Acute (5) ESRD (end stage renal disease) Code(s): N18.6 - End stage renal disease Status: Chronic (6) CAD (coronary artery disease) Code(s): I25.10 - Atherosclerotic heart disease of [place] coronary artery without angina pectoris Status: Chronic (7) PAD (peripheral artery disease) Code(s): I73.9 - Peripheral vascular disease, unspecified Status: Chronic (8) DM2 (diabetes mellitus, type 2) Code(s): E11.9 - Type 2 diabetes mellitus without complications Status: Chronic (9) Hypertension Code(s): I10 - Essential (primary) hypertension Status: Chronic (10) Ischemic cardiomyopathy Code(s): I25.5 - Ischemic cardiomyopathy Status: Chronic - Assessment and Plan Plan: Assessment and Plan NEURO: Toxic metabolic encephalopathy History of peripheral neuropathy History of glaucoma Avoid any sedating medication CT head negative for bleed. Encephalopathy most likely from metabolic causes/sepsis. EEG ordered. Neurology consult requested RESP: Respiratory failure Pulmonary edema Intubated for airway protection DuoNeb every 6 hours scheduled and as needed Continue mechanical ventilation No weaning until neurologically improved CV: Coronary artery disease with prior stents (LAD stent 06/08) Chronic systolic heart failure ejection fraction 30-35% 2016 Severe TR s/p L BKA s/p R iliofemoral bypass and R fem-pop bypass by Dr. Ramirez 11/26/17 Peripheral arterial disease Hypertension, dyslipidemia Continue baby aspirin GI: IV famotidine Start Nepro tube feeds and advance to goal as tolerated FEN/RENAL: ESRD Large right renal mass suspicious for renal cell carcinoma Hemodialysis Thursday/Thursday/Thursday per nephrology, Dr Ahumada. Urology consulted for right renal mass (previously refused work up) ID: Severe sepsis Source of sepsis is unclear at this time, possibly HD access Received vancomycin and Zosyn in the ED, continue both renally dosed Follow-up on blood culture Antibiotics per ID Dr. Dowd HEME: Anemia of chronic disease No indication for blood transfusion at this time ENDO: Diabetes mellitus, type II Low-dose insulin sliding scale q6h PROPH: Heparin 5000 subcutaneous to 12 for DVT prophylaxis-resumed. IV famotidine for stress ulcer prophylaxis. ACCESS: Right groin central line 09/13/2018 Left groin arterial line 09/13/2018 35 minutes of critical care Critically ill with sepsis, respiratory failure and encephalopathy.
[2018-09-14 10:22] LABS: Potassium 2.9 meq/L (3.5-5.1)
[2018-09-14] MEDS ORDERED: Potassium Chloride 20 MEQ Pwd Pkt NG/OG ONE (11:05)
[2018-09-14 11:57] LABS: Creatine Kinase MB 5.2 ng/mL (0.5-3.6)
--- NOTE | 2018-09-14 11:57 | P.CONNEU ---
History of Present Illness Service: Neurology Consult date: 09/14/18 Reason for Consult: Encephalopathy Primary Care Provider: No Primary Care Physician Chief Complaint: AMS History of Present Illness: Pt unable to give hx, hx obtained from nursing staff and chart. She is a 58 y /o female w history of type 2 diabetes, hypertension, hyperlipidemia, ESRD on HD M/W/F, CHF Echo 03/22/07 EF 30-35%, CAD, s/p LAD stent 06/08, status post left BKA. Patient was brought to the emergency department by EMS for altered mental status. Apparently patient was found lying on the floor between 2 dressers, missed two dialysis appointments. Initial CT and MRI of the brain were negative for any acute changes. Chest x-ray showed pulmonary vascular congestion, left lower lobe atelectasis. CT abdomen pelvis showed large 6.2 cm renal mass which has grown in size since last scan in Nov 2017, and suspicious for renal cell carcinoma. She was found to have elevated WBC and also was hyperkalemic. She was started on empiric antibiotics and stat dialysis was ordered. Mental status was improving. On 09/13 she coded (found to be hypotensive and in respiratory failure) and was intubated. She is now on the vent and per the nurse intermittently overbreathing and intermittently following commands. She had AV fistula removed from left arm and nurse noted some weakness on the left. She withdraws from pain. Repeat CT after the code did not show any acute changes. She has not had any sedation. No reported seizure activity. Nurse reports that she has mild cognitive impairment at baseline. 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 Onset Date: ~09/06/18 Diabetes Dialysis patient Gangrene - Surgical History Surgical History: Surgical History (Last Reviewed 09/08/18 @ 10:58 by Cielo Johnson) Below knee amputation status - Family History Family History: Family History (Last Updated 09/07/18 @ 13:58 by Laura Dowd MD) Other Family history unobtainable - Tobacco History Second Hand Smoke Exposure: No Smoking Status: Unknown if ever smoked - Alcohol History How Often Do You Have a Drink Containing Alcohol: Unable to Obtain - Substance Use History Substance History: Unable to Obtain - Travel History Recent Travel in the [place] Within the Last 8 Weeks: No Recent Travel Out of the Country Within the Last 8 Weeks: No - Immunization History Tetanus Immunization: Unable to Assess Hx Influenza Vaccine This Season: Yes Medications and Allergies Allergies Allergy/AdvReac Type Severity Reaction Status Date / Time latex Allergy Severe Edema Unverified 09/06/18 11:19 Home Medications Medication Instructions Recorded Confirmed Type Unable to Obtain Home Meds 09/06/18 09/06/18 History Active Medications: Active Medications Acetaminophen (Tylenol) 650 mg PO Q6H PRN PRN Reason: PAIN 1-10 AND/OR FEVER >101F Acetaminophen (Tylenol) 650 mg PO UNSCH PRN PRN Reason: SEE LABEL COMMENTS Hydrocodone Bitart/Acetaminophen ([place] 5/325) 1 tab PO Q4H PRN PRN Reason: PAIN SCALE 4 TO 6 MODERATE Last Admin: 09/12/18 20:27 Dose: 1 tab Al Hydroxide/Mg Hydroxide (Milk Of Magnarturo Liq) 30 ml PO Q12H PRN PRN Reason: Mild Constipation Albuterol (Albuterol Neb (Prn)) 2.5 mg NEB Q2HR NEB PRN PRN Reason: SHORTNESS OF BREATH/WHEEZING Bisacodyl (Dulcolax Supp) 10 mg RECTAL DAILY PRN PRN Reason: SEVERE CONSITIPATION Clonidine HCl (Catapres) 0.1 mg PO UNSCH PRN PRN Reason: SEE LABEL COMMENTS Dextrose (D50w Vial) 50 ml IV.PUSH UNSCH PRN PRN Reason: PER HYPOGLYCEMIA PROTOCOL Diphenhydramine HCl (Benadryl) 25 mg PO UNSCH PRN PRN Reason: SEE LABEL COMMENTS Famotidine (Pepcid Pf Inj) 10 mg IV.PUSH Q12HR [facility] Last Admin: 09/14/18 08:55 Dose: 10 mg Gelatin (Gelfoam 12 Mm/7 Mm Topical) 1 foam TOPICAL PRN PRN PRN Reason: help stop bleeding from site Last Admin: 09/06/18 15:02 Dose: 1 foam Gentamicin Sulfate (Gentamicin Inj) 20 mg OTHER WITH DIALYSIS PRN PRN Reason: Dwell Gentamycin Lock Last Admin: 09/13/18 11:21 Dose: 20 mg Glucagon (Glucagon Inj) 1 mg OTHER PRN PRN PRN Reason: for Hypoglycemia Protocol Heparin Sodium (Porcine) (Heparin Inj) 1,000 units OTHER WITH DIALYSIS PRN PRN Reason: Dwell Heparin to Fill Catheter Last Admin: 09/13/18 11:21 Dose: 1,000 units Heparin Sodium (Porcine) (Heparin Inj) 5,000 units SQ Q12H [facility] Last Admin: 09/14/18 06:33 Dose: 5,000 units Heparin Sodium (Porcine) (Heparin Inj) 8,000 units OTHER WITH DIALYSIS PRN PRN Reason: for machine prime Heparin Sodium (Porcine) (Heparin Central Flush) 0 unit IV.FLUSH DAILY PRN PRN Reason: SEE DOSE INSTRUCTIONS Albumin Human (Flexbumin 25% Inj) 100 mls @ 60 mls/hr IV.SIG WITH DIALYSIS PRN PRN Reason: hypotension / volume replace Last Infusion: 09/07/18 14:25 Dose: Infused Sodium Chloride (Ns Inj) 1,000 mls @ 0 mls/hr OTHER .Q0M PRN PRN Reason: for prime and rinse back Last Infusion: 09/06/18 19:00 Dose: 0 mls/hr Sodium Chloride (Ns Inj) 1,000 mls @ 200 mls/hr OTHER .Q5H PRN PRN Reason: for dialyzer flush PRN Sodium Chloride (Ns Inj) 1,000 mls @ 0 mls/hr IV.CONT .Q0M PRN PRN Reason: hypotension / volume replace Norepinephrine Bitartrate (Levophed-Dextrose 4 Mg/250 Ml Drip) 4 mg in 250 mls @ 7.5 mls/hr IV.SIG TITRATE PRN; Protocol PRN Reason: Per Protocol Last Titration: 09/13/18 18:29 Dose: Infused Sodium Bicarbonate 150 meq/ (Dextrose) 1,000 mls @ 125 mls/hr IV.CONT .Q8H [facility] Last Admin: 09/14/18 06:33 Dose: 125 mls/hr Vancomycin HCl 1,250 mg/ (Sodium Chloride) 262.5 mls @ 250 mls/hr IV.SIG WITH DIALYSIS [facility] Insulin Aspart (Novolog Insulin Correctional Sugar Inj) 0 unit SQ Q6HR [facility]; Protocol Lactulose (Lactulose Liq) 30 ml PO DAILY PRN PRN Reason: SEVERE CONSITIPATION Mannitol (Mannitol Inj) 12.5 gm IV.PUSH UNSCH PRN PRN Reason: hypotension / volume replace Morphine Sulfate (Morphine Inj) 2 mg IV.PUSH Q4H PRN PRN Reason: PAIN 6-10;IF UNABLE TO TAKE PO Last Admin: 09/14/18 02:17 Dose: 2 mg Mupirocin (Bactroban 2% Oint) 1 applicatio TOPICAL BID [facility] Last Admin: 09/14/18 08:55 Dose: 1 applicatio Nitroglycerin (Nitrostat Sl) 0.4 mg SL Q5M PRN PRN Reason: CHEST PAIN Ondansetron HCl (Zofran Inj) 4 mg IV.PUSH UNSCH PRN PRN Reason: NAUSEA OR VOMITING Potassium Chloride (Kcl Powder) 20 meq NG/OG ONCE ONE Stop: 09/14/18 11:06 Senna/Docusate Sodium (Elsy-Colace) 1 tab PO BID [facility] Last Admin: 09/14/18 08:56 Dose: Not Given Sennosides (Senokot) 17.2 mg PO Q12H PRN PRN Reason: Moderate Constipation Sevelamer Carbonate (Renvela) 1,600 mg PO TIDAC [facility] Last Admin: 09/14/18 08:55 Dose: Not Given Sodium Chloride (Ns Flush) 5 ml IV.FLUSH PRN PRN PRN Reason: flush each lumen during HD Sodium Chloride (Ns Flush) 2 ml IV.FLUSH BID [facility] Last Admin: 09/14/18 08:55 Dose: 2 ml Sodium Chloride (Ns Flush) 2 ml IV.FLUSH PRN PRN PRN Reason: FLUSH AFTER USING IV ACCESS Last Admin: 09/14/18 08:55 Dose: 2 ml Terbutaline Sulfate (Brethine Inj) 1 mg SQ UNSCH PRN PRN Reason: For Extravasation Exam Vital signs: Vital Signs 09/13/18 12:00 09/13/18 12:16 09/13/18 12:29 Temperature 97.5 F L Pulse Rate 83 85 84 Respiratory Rate 15 15 0 L Blood Pressure 153/79 H 109/62 131/70 Pulse Oximetry 100 100 100 09/13/18 12:39 09/13/18 12:43 09/13/18 12:45 Temperature Pulse Rate 82 84 83 Respiratory Rate 22 0 L 15 Blood Pressure 173/81 H 156/77 H 159/86 H Pulse Oximetry 100 100 100 09/13/18 12:48 09/13/18 12:51 09/13/18 12:54 Temperature Pulse Rate 88 86 83 Respiratory Rate 18 15 15 Blood Pressure 160/70 H 146/92 H 122/61 Pulse Oximetry 100 100 100 09/13/18 12:57 09/13/18 13:00 09/13/18 14:00 Temperature 97.7 F Pulse Rate 84 82 79 Respiratory Rate 15 15 15 Blood Pressure 120/65 122/67 120/64 Pulse Oximetry 100 100 100 09/13/18 15:00 09/13/18 15:33 09/13/18 16:00 Temperature Pulse Rate 80 77 Respiratory Rate 15 15 15 Blood Pressure 125/65 125/65 Pulse Oximetry 100 100 100 09/13/18 17:00 09/13/18 19:00 09/13/18 19:38 Temperature Pulse Rate 82 80 Respiratory Rate 15 15 15 Blood Pressure 133/65 113/61 Pulse Oximetry 100 100 100 09/13/18 20:00 09/13/18 21:00 09/13/18 22:00 Temperature 98.1 F Pulse Rate 80 78 80 Respiratory Rate 16 15 17 Blood Pressure 118/65 118/64 135/65 Pulse Oximetry 100 100 100 09/13/18 23:00 09/13/18 23:10 09/14/18 00:00 Temperature 98.1 F Pulse Rate 83 79 Respiratory Rate 15 15 15 Blood Pressure 126/64 114/62 Pulse Oximetry 100 100 100 09/14/18 01:00 09/14/18 02:00 09/14/18 03:00 Temperature Pulse Rate 79 83 83 Respiratory Rate 15 23 22 Blood Pressure 114/59 L 135/68 142/66 H Pulse Oximetry 100 100 100 09/14/18 04:00 09/14/18 04:40 09/14/18 05:00 Temperature 98.6 F Pulse Rate 82 82 Respiratory Rate 15 18 15 Blood Pressure 134/72 148/71 H Pulse Oximetry 100 100 100 09/14/18 06:00 09/14/18 07:00 09/14/18 07:16 Temperature Pulse Rate 79 79 Respiratory Rate 15 15 15 Blood Pressure 138/67 137/63 Pulse Oximetry 100 100 100 09/14/18 08:00 09/14/18 09:00 09/14/18 11:02 Temperature 97.7 F Pulse Rate 83 79 Respiratory Rate 15 13 15 Blood Pressure 147/77 H 123/65 Pulse Oximetry 100 100 100 Intake & Output 09/13/18 09/14/18 09/14/18 18:59 06:59 18:59 Intake Total 1464 / 1464 2099 Output Total 3000 / 3000 Balance -1536 / -1536 2099 Weight 45 kg Intake: IV 1364 / 1364 2000 / 1999 Sodium Bicarbonate 8.4% Inj 150 1000 / 1000 2000 / 2000 MEQ In D5W Inj 850 ML @ 125 mls/hr IV.CONT .Q8H [facility] Rx#: [id number] Levophed-Dextrose 4 mg/250 ml 114 / 114 Drip 4 mg In 250 ml @ 2 MCG/MIN 7.5 mls/hr IV.SIG TITRATE PRN Rx#:[id number] Vancomycin Inj 1,000 MG In NS 250 / 250 Inj 250 ML @ 250 mls/hr IV.SIG WITH DIALYSIS [facility] Rx#:[id number] Water Bolus Amount 100 / 100 100 / 100 Output: Hemodialysis Amount 3000 / 3000 Other: Date of Last Bowel Movement 09/13/18 09/14/18 09/14/18 # Bowel Movements 1 3 - Routine Neurological Exam Pt lying in bed, intubated, intermittently overbreathing the vent. 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 No tremor noted Results - Labs CBC & Chem 7: 09/14/18 09:00 09/14/18 09:00 Labs: Laboratory Results - last 24 hr 09/13/18 09/13/18 09/14/18 16:46 21:25 06:30 WBC RBC Hgb Hct MCV MCH MCHC RDW Plt Count MPV Neut % (Auto) Lymph % (Auto) [place] % (Auto) Eos % (Auto) Baso % (Auto) Neut # (Auto) Lymph # (Auto) [place] # (Auto) Eos # (Auto) Baso # (Auto) WBC Differential Differential Comment Sodium Potassium Chloride Carbon Dioxide Anion Gap BUN Creatinine Estimated GFR POC Glucose 223 H 202 H 232 H Random Glucose Calcium Total Bilirubin AST ALT Alkaline Phosphatase Total Creatine Kinase Total Protein Albumin 09/14/18 09/14/18 09/14/18 07:18 09:00 09:00 WBC 13.6 H RBC 3.67 L Hgb 9.8 L Hct 29.5 L MCV 80.6 MCH 26.8 L MCHC 33.2 RDW 19.0 H Plt Count 199 MPV 10.5 Neut % (Auto) 91.6 H Lymph % (Auto) 5.6 L [place] % (Auto) 2.4 Eos % (Auto) 0.1 Baso % (Auto) 0.3 Neut # (Auto) 12.5 H Lymph # (Auto) 0.8 L [place] # (Auto) 0.3 Eos # (Auto) 0.0 Baso # (Auto) 0.0 WBC Differential . Differential Comment Auto diff final Sodium 139 Potassium 2.9 L* D Chloride 92 L Carbon Dioxide 37.5 H D Anion Gap 10 BUN 32 H Creatinine 4.11 H Estimated GFR 14 L POC Glucose 240 H Random Glucose 241 H D Calcium 8.0 L Total Bilirubin 1.0 AST 1650 H ALT 164 H Alkaline Phosphatase 238 H Total Creatine Kinase Total Protein 6.1 L D Albumin 1.6 L 09/14/18 09:00 WBC RBC Hgb Hct MCV MCH MCHC RDW Plt Count MPV Neut % (Auto) Lymph % (Auto) [place] % (Auto) Eos % (Auto) Baso % (Auto) Neut # (Auto) Lymph # (Auto) [place] # (Auto) Eos # (Auto) Baso # (Auto) WBC Differential Differential Comment Sodium Potassium Chloride Carbon Dioxide Anion Gap BUN Creatinine Estimated GFR POC Glucose Random Glucose Calcium Total Bilirubin AST ALT Alkaline Phosphatase Total Creatine Kinase 261 H Total Protein Albumin - Imaging Impressions Tibia/Fibula X-Ray 09/13/18 00:00 CONCLUSION: 1. Status post below the knee amputation. 2. No evidence to suggest osteomyelitis. 3. Possible soft tissue erosion at the base of the amputation. Head CT 09/13/18 06:22 CONCLUSION: 1. No acute intracranial abnormality. 2. Progressive right maxillary sinus mucosal disease. . Review/Management - Diagnosis (1) Toxic metabolic encephalopathy Code(s): G92 - Toxic encephalopathy Status: Acute Current Visit: Yes (2) Altered mental status Code(s): R41.82 - Altered mental status, unspecified Status: Acute Current Visit: Yes - Review/Management Plan: remains on vent avoid sedation EEG pending will order repeat MRI due to change in mental status since last MRI continue to treat underlying infection and normalize electrolytes she is being followed by ID and nephrology urology was consulted Addendum MD note pt seen and d/w PA agree on evaluation and workup to be completed. further recommendations to be made as needed.
[2018-09-14] MEDS ORDERED: Potassium Chloride 25 MEQ Effervescent Tablet NG/OG ONE (12:00)
--- NOTE | 2018-09-14 12:36 | P.PNNP ---
Subjective Interval history: patient was seen in the ICU. Patient is poorly responsive. To have MRI of brain today. Was on bicarbonate drip, has metabolic alkalosis, I stopped the bicarbonate drip. Physical Exam Vital signs: Vital Signs 09/13/18 12:39 09/13/18 12:43 09/13/18 12:45 Temperature Pulse Rate 82 84 83 Respiratory Rate 22 0 L 15 Blood Pressure 173/81 H 156/77 H 159/86 H Pulse Oximetry 100 100 100 09/13/18 12:48 09/13/18 12:51 09/13/18 12:54 Temperature Pulse Rate 88 86 83 Respiratory Rate 18 15 15 Blood Pressure 160/70 H 146/92 H 122/61 Pulse Oximetry 100 100 100 09/13/18 12:57 09/13/18 13:00 09/13/18 14:00 Temperature 97.7 F Pulse Rate 84 82 79 Respiratory Rate 15 15 15 Blood Pressure 120/65 122/67 120/64 Pulse Oximetry 100 100 100 09/13/18 15:00 09/13/18 15:33 09/13/18 16:00 Temperature Pulse Rate 80 77 Respiratory Rate 15 15 15 Blood Pressure 125/65 125/65 Pulse Oximetry 100 100 100 09/13/18 17:00 09/13/18 19:00 09/13/18 19:38 Temperature Pulse Rate 82 80 Respiratory Rate 15 15 15 Blood Pressure 133/65 113/61 Pulse Oximetry 100 100 100 09/13/18 20:00 09/13/18 21:00 09/13/18 22:00 Temperature 98.1 F Pulse Rate 80 78 80 Respiratory Rate 16 15 17 Blood Pressure 118/65 118/64 135/65 Pulse Oximetry 100 100 100 09/13/18 23:00 09/13/18 23:10 09/14/18 00:00 Temperature 98.1 F Pulse Rate 83 79 Respiratory Rate 15 15 15 Blood Pressure 126/64 114/62 Pulse Oximetry 100 100 100 09/14/18 01:00 09/14/18 02:00 09/14/18 03:00 Temperature Pulse Rate 79 83 83 Respiratory Rate 15 23 22 Blood Pressure 114/59 L 135/68 142/66 H Pulse Oximetry 100 100 100 09/14/18 04:00 09/14/18 04:40 09/14/18 05:00 Temperature 98.6 F Pulse Rate 82 82 Respiratory Rate 15 18 15 Blood Pressure 134/72 148/71 H Pulse Oximetry 100 100 100 09/14/18 06:00 09/14/18 07:00 09/14/18 07:16 Temperature Pulse Rate 79 79 Respiratory Rate 15 15 15 Blood Pressure 138/67 137/63 Pulse Oximetry 100 100 100 09/14/18 08:00 09/14/18 09:00 09/14/18 11:02 Temperature 97.7 F Pulse Rate 83 79 Respiratory Rate 15 13 15 Blood Pressure 147/77 H 123/65 Pulse Oximetry 100 100 100 Intake & Output 09/13/18 09/14/18 09/14/18 18:59 06:59 18:59 Intake Total 1464 / 1464 2099 / 2099 700 / 700 Output Total 3000 / 3000 Balance -1536 / -1536 2099 / 2099 700 / 700 Weight 45 kg Intake: IV 1364 / 1364 1999 / 1999 700 / 700 Sodium Bicarbonate 8.4% Inj 150 1000 / 1000 1999 / 1999 700 / 700 MEQ In D5W Inj 850 ML @ 125 mls/hr IV.CONT .Q8H [facility] Rx#: [id number] Levophed-Dextrose 4 mg/250 ml 114 / 114 Drip 4 mg In 250 ml @ 2 MCG/MIN 7.5 mls/hr IV.SIG TITRATE PRN Rx#:[id number] Vancomycin Inj 1,000 MG In NS 250 / 250 Inj 250 ML @ 250 mls/hr IV.SIG WITH DIALYSIS [facility] Rx#:[id number] Water Bolus Amount 100 / 100 100 / 100 Output: Hemodialysis Amount 3000 / 3000 Other: Date of Last Bowel Movement 09/13/18 09/14/18 09/14/18 # Bowel Movements 1 3 Narrative: On the vent. Unresponsive. Chest: vented breath sounds bilaterally, no rhonchi, no wheezing. Heart: RRR. 3/6 systolic murmur. No edema. s/p left BKA. Chronic ischemia right lower extremity. Assessment and Plan - Assessment (1) ESRD (end stage renal disease) Code(s): N18.6 - End stage renal disease Status: Chronic Plan: HD MWF. Seen during dialysis today. If she is NPO, start D10NS at 20 ml/hour for hyperkalemia. K+ stable She is s/p repair/excision of infected pseudoaneurysm of AVF, with apparent interposition bovine graft. Discussed with Dr. Hayes - appreciate assistance. Fistula pseudo aneuryms grossly infected. Previous steal history - no apparent signs of steal at this point. Currently with non-tunneled HD catheter, will need to change to tunneled catheter when blood cultures clear. ---- (2) Hyperkalemia Code(s): E87.5 - Hyperkalemia Status: Acute Plan: Improved. Monitor. Should be on low potassium diet. If NPO, she should be on D10NS. (3) Altered mental status Code(s): R41.82 - Altered mental status, unspecified Status: Acute Plan: Could be due to uremia, but also could be due to sepsis. Supportive care. Monitor. Improving. (4) Renal mass Code(s): N28.89 - Other specified disorders of kidney and ureter Status: Acute Plan: Renal mass has grown in size, most likely malignancy. Urology note reviewed, to follow up after discharge. (5) Severe sepsis Code(s): A41.9 - Sepsis, unspecified organism; R65.20 - Severe sepsis without septic shock Status: Acute Plan: MRSA sepsis, endocarditis. MRI of the brain negative for septic emboli. She has mitral valve vegetation. On Vancomycin. s/p excision of infected pseudoaneurysm of AVF. (6) CAD (coronary artery disease) Code(s): I25.10 - Atherosclerotic heart disease of [place] coronary artery without angina pectoris Status: Chronic (7) PAD (peripheral artery disease) Code(s): I73.9 - Peripheral vascular disease, unspecified Status: Chronic Plan: s/p left BKA. Poor circulation of right lower extremity. (8) DM2 (diabetes mellitus, type 2) Code(s): E11.9 - Type 2 diabetes mellitus without complications Status: Chronic Plan: maintain blood glucose between 140 and 180 while hospitalized.
[2018-09-14 13:11] LABS: Folate 7.4 ng/mL (3.1-17.5)
--- NOTE | 2018-09-14 14:49 | P.DIET ---
Nutritional Evaluation Type of nutrition evaluation: initial Nutrition consult regarding: Tube Feeding Objective - Diagnosis hyperkalemia, fluid overload - Objective Part of Body Amputated: Left below knee (6%) (Adjusted IBW for LBKA = 94-lb( 42.7kg)) % IBW: 119 Body Weight Used for Calculations: Actual (51kg) Energy Needs - Lower Range (kCal/kg): 25 Energy Needs - Upper Range (kCal/kg): 30 Lower Limit kCal/kg (kCals): 1,275 Upper Limit kCal/kg (kCals): 1,530 Lower Limit Protein Factor (Grams per Kg): 1.2 Upper Limit Protein Factor (Grams per Kg): 1.5 Lower Protein Needs (Protein): 61 Upper Protein Needs (Protein): 77 Dietitian Reviewed in Medical Record: Curent medications, Intake & Output, Labs , Medical history, Tube feeding Diet Order: TF'ing ONLY: Nepro @ 30ml/hr Objective Comments: PMH includes: A-V Fistula, ESRD on HD M-W-, DM, CHF EF 30-35, Gangrene, MDRO, CAD s/p LAD stent 06/08, LBKA Labs Include: K 2.9, BUN 32, Creatinine 4.11, estGFR 14, Random glucose 241 LBM 09/14 Assessment Assessment: Pt is at nutritional risk r/t ESRD on HD and need for TF'ing. To best meet pt's assessed needs for TF'ing w/Nepro, Rec a goal rate @ 35ml/hr to offer 1512 kcal , 68g protein and 611ml free water. Labs reviewed-monitor renal labs and glucose. Additional Recs to follow r/t Clinical Course. Recommendations: 1. To best meet pt's assessed needs for TF'ing w/Nepro, Rec a goal rate @ 35ml/ hr 2. Additional Recs to follow r/t Clinical Course Dietitian to Monitor: Lab values, Renal labs, Glucose level, Intake & Output, Tube feeding tolerance, Weight change, Residuals, Medical course
--- NOTE | 2018-09-14 15:43 | MR ---
EXAM DATE: 09/14/2018 2:54 PM EDT AGE/SEX: 58 years / Female INDICATIONS: Altered mental status. CLINICAL DATA: This is the patient's initial encounter. Patient reports that signs and symptoms have been present for 1 day and indicates a pain score of Nonresponsive. MEDICAL/SURGICAL HISTORY: Diabetes mellitus type II. Hypertension. . BKA on left side, AV fist ron removed, Vas Cath placed. COMPARISON: [facility] [place]/O [place]AST, 09/08/2018. . TECHNIQUE: Multiplanar, multisequence examination of the brain was performed without contrast. FINDINGS: There is no evidence for intracranial hemorrhage, mass effect, mass lesions, edema, or extra-axial fl uid collections. There are no signs of acute infarction for technique. The diffusion portion is unr emarkable. Slight degree of brain atrophy is seen. Slight periventricular white matter changes are se en nonspecific mostly consistent with chronic small vessel ischemic changes. There is chronic sinusi tis mainly within the right maxillary sinus. The examination is limited due to motion artifact. CONCLUSION: Chronic small vessel ischemic and atrophic changes. Electronically signed by: Hoda Hdez MD 09/14/2018 3:42 PM EDT
--- NOTE | 2018-09-14 16:05 | P.PNVS ---
Subjective Subjective/Hospital Course: intubated, not responsive Objective Vital Signs / I&O: Vital Signs 09/13/18 17:00 09/13/18 19:00 09/13/18 19:38 Temperature Pulse Rate 82 80 Respiratory Rate 15 15 15 Blood Pressure 133/65 113/61 Pulse Oximetry 100 100 100 09/13/18 20:00 09/13/18 21:00 09/13/18 22:00 Temperature 98.1 F Pulse Rate 80 78 80 Respiratory Rate 16 15 17 Blood Pressure 118/65 118/64 135/65 Pulse Oximetry 100 100 100 09/13/18 23:00 09/13/18 23:10 09/14/18 00:00 Temperature 98.1 F Pulse Rate 83 79 Respiratory Rate 15 15 15 Blood Pressure 126/64 114/62 Pulse Oximetry 100 100 100 09/14/18 01:00 09/14/18 02:00 09/14/18 03:00 Temperature Pulse Rate 79 83 83 Respiratory Rate 15 23 22 Blood Pressure 114/59 L 135/68 142/66 H Pulse Oximetry 100 100 100 09/14/18 04:00 09/14/18 04:40 09/14/18 05:00 Temperature 98.6 F Pulse Rate 82 82 Respiratory Rate 15 18 15 Blood Pressure 134/72 148/71 H Pulse Oximetry 100 100 100 09/14/18 06:00 09/14/18 07:00 09/14/18 07:16 Temperature Pulse Rate 79 79 Respiratory Rate 15 15 15 Blood Pressure 138/67 137/63 Pulse Oximetry 100 100 100 09/14/18 08:00 09/14/18 09:00 09/14/18 10:00 Temperature 97.7 F Pulse Rate 83 79 80 Respiratory Rate 15 13 15 Blood Pressure 147/77 H 123/65 103/55 L Pulse Oximetry 100 100 100 09/14/18 10:45 09/14/18 11:00 09/14/18 11:02 Temperature Pulse Rate 78 78 Respiratory Rate 15 15 15 Blood Pressure 93/58 L 117/62 Pulse Oximetry 100 100 100 09/14/18 11:15 09/14/18 11:31 09/14/18 12:00 Temperature 98.8 F Pulse Rate 78 81 78 Respiratory Rate 15 19 15 Blood Pressure 118/56 L 118/58 L 120/65 Pulse Oximetry 100 100 100 09/14/18 13:00 09/14/18 15:00 09/14/18 15:48 Temperature Pulse Rate 80 Respiratory Rate 15 15 Blood Pressure 111/62 Pulse Oximetry 100 100 100 Intake & Output 09/13/18 09/14/18 09/14/18 18:59 06:59 18:59 Intake Total 1464 / 1464 2099 / 2099 700 / 700 Output Total 3000 / 3000 Balance -1536 / -1536 2099 / 2099 700 / 700 Weight 45 kg Intake: IV 1364 / 1364 1999 / 1999 700 / 700 Sodium Bicarbonate 8.4% Inj 150 1000 / 1000 1999 / 2000 700 / 700 MEQ In D5W Inj 850 ML @ 125 mls/hr IV.CONT .Q8H [facility] Rx#: [id number] Levophed-Dextrose 4 mg/250 ml 114 / 114 Drip 4 mg In 250 ml @ 2 MCG/MIN 7.5 mls/hr IV.SIG TITRATE PRN Rx#:[id number] Vancomycin Inj 1,000 MG In NS 250 / 250 Inj 250 ML @ 250 mls/hr IV.SIG WITH DIALYSIS [facility] Rx#:[id number] Water Bolus Amount 100 / 100 100 / 100 Output: Hemodialysis Amount 3000 / 3000 Other: Date of Last Bowel Movement 09/13/18 09/14/18 09/14/18 # Bowel Movements 1 3 Physical Exam: LUE wound CDI, good thrill in AVF Left BKA stump with open wound and mild drainage Right good stable with monophasic DP signal Laboratory Results - last 24 hr 09/13/18 09/13/18 09/14/18 16:46 21:25 06:30 WBC RBC Hgb Hct MCV MCH MCHC RDW Plt Count MPV Neut % (Auto) Lymph % (Auto) [place] % (Auto) Eos % (Auto) Baso % (Auto) Neut # (Auto) Lymph # (Auto) [place] # (Auto) Eos # (Auto) Baso # (Auto) WBC Differential Differential Comment Sodium Potassium Chloride Carbon Dioxide Anion Gap BUN Creatinine Estimated GFR POC Glucose 223 H 202 H 232 H Random Glucose Calcium Total Bilirubin AST ALT Alkaline Phosphatase Total Creatine Kinase CK-MB (CK-2) CK-MB (CK-2) % Total Protein Albumin Vitamin B12 Folate 09/14/18 09/14/18 09/14/18 07:18 09:00 09:00 WBC 13.6 H RBC 3.67 L Hgb 9.8 L Hct 29.5 L MCV 80.6 MCH 26.8 L MCHC 33.2 RDW 19.0 H Plt Count 199 MPV 10.5 Neut % (Auto) 91.6 H Lymph % (Auto) 5.6 L [place] % (Auto) 2.4 Eos % (Auto) 0.1 Baso % (Auto) 0.3 Neut # (Auto) 12.5 H Lymph # (Auto) 0.8 L [place] # (Auto) 0.3 Eos # (Auto) 0.0 Baso # (Auto) 0.0 WBC Differential . Differential Comment Auto diff final Sodium 139 Potassium 2.9 L* D Chloride 92 L Carbon Dioxide 37.5 H D Anion Gap 10 BUN 32 H Creatinine 4.11 H Estimated GFR 14 L POC Glucose 240 H Random Glucose 241 H D Calcium 8.0 L Total Bilirubin 1.0 AST 1650 H ALT 164 H Alkaline Phosphatase 238 H Total Creatine Kinase CK-MB (CK-2) CK-MB (CK-2) % Total Protein 6.1 L D Albumin 1.6 L Vitamin B12 Folate 09/14/18 09/14/18 09/14/18 09:00 09:00 11:26 WBC RBC Hgb Hct MCV MCH MCHC RDW Plt Count MPV Neut % (Auto) Lymph % (Auto) [place] % (Auto) Eos % (Auto) Baso % (Auto) Neut # (Auto) Lymph # (Auto) [place] # (Auto) Eos # (Auto) Baso # (Auto) WBC Differential Differential Comment Sodium Potassium Chloride Carbon Dioxide Anion Gap BUN Creatinine Estimated GFR POC Glucose 218 H Random Glucose Calcium Total Bilirubin AST ALT Alkaline Phosphatase Total Creatine Kinase 261 H CK-MB (CK-2) 5.2 H CK-MB (CK-2) % 2.0 Total Protein Albumin Vitamin B12 Greater than 2000 H Folate 7.4 Microbiology 09/11/18 08:30 Aerobic Blood Culture - Preliminary Blood - Peripheral No growth in 3 days Anaerobic Blood Culture - Final QNS - See aerobic report. 09/11/18 08:39 Aerobic Blood Culture - Preliminary Blood - Peripheral No growth in 3 days Anaerobic Blood Culture - Preliminary No growth in 3 days Impressions Tibia/Fibula X-Ray 09/13/18 00:00 CONCLUSION: 1. Status post below the knee amputation. 2. No evidence to suggest osteomyelitis. 3. Possible soft tissue erosion at the base of the amputation. Head CT 09/13/18 06:22 CONCLUSION: 1. No acute intracranial abnormality. 2. Progressive right maxillary sinus mucosal disease. . Chest X-Ray 09/13/18 06:44 CONCLUSION: 1. ETT 4 mm above the valeria. 2. Right IJ dialysis catheter in good position. 3. Persistent positive fluid balance. 4. Mild left lung base atelectasis/scarring. Head MRI 09/14/18 00:00 CONCLUSION: Chronic small vessel ischemic and atrophic changes. Assessment and Plan - Assessment (1) Abscess of upper extremity Code(s): L02.419 - Cutaneous abscess of limb, unspecified Status: Acute (2) Toxic metabolic encephalopathy Code(s): G92 - Toxic encephalopathy Status: Acute (3) Severe sepsis Code(s): A41.9 - Sepsis, unspecified organism; R65.20 - Severe sepsis without septic shock Status: Acute (4) PAD (peripheral artery disease) Code(s): I73.9 - Peripheral vascular disease, unspecified Status: Chronic - Plan Left upper extremity abscess, infected hematoma. S/P excision of infected PSA. Right lower extremity peripheral vascular disease Stable with no acute limb ischemia. LBKA stump will need revision in the future. patient with multiple medical issues and poor out come. She will need revision of her left BKA stump He RLE is in CLI, and is at risk for developing ALI D/W Dr. Dowd and I agree to consult palliative medicine following the neurology eval Baudilio Hayes MD [phone]
[2018-09-15] MEDS: Insulin NovoLOG Aspart Correctional Sugar Inj SQ SCH ×4 (00:32→18:25)
[2018-09-15] MEDS: Heparin - SQ 10,000 UNITS/ML Vial SQ SCH ×2 (05:36→18:25)
[2018-09-15] MEDS: Heparin 10,000 UNITS/10 ML Vial (for IV use) OTHER PRN (09:31)
[2018-09-15] MEDS: Vancomycin Inj 1,250 MG in Sodium Chlor 0.9% Inj 250 ML IV.SIG SCH (09:32)
--- NOTE | 2018-09-15 10:20 | P.PNNP ---
Subjective Interval history: patient was seen during dialysis. On 4K, UF goal is 3 liters. Right IJ VasCath is currently cannulated. She is intubated, but appears to be more responsive. Physical Exam Vital signs: Vital Signs 09/14/18 10:45 09/14/18 11:00 09/14/18 11:02 Temperature Pulse Rate 78 78 Respiratory Rate 15 15 15 Blood Pressure 93/58 L 117/62 Pulse Oximetry 100 100 100 09/14/18 11:15 09/14/18 11:31 09/14/18 12:00 Temperature 98.8 F Pulse Rate 78 81 78 Respiratory Rate 15 19 15 Blood Pressure 118/56 L 118/58 L 120/65 Pulse Oximetry 100 100 100 09/14/18 13:00 09/14/18 14:00 09/14/18 15:00 Temperature Pulse Rate 80 79 88 Respiratory Rate 15 15 30 H Blood Pressure 111/62 103/58 L Pulse Oximetry 100 100 100 09/14/18 15:01 09/14/18 15:02 09/14/18 15:37 Temperature Pulse Rate 87 86 82 Respiratory Rate 23 40 H 16 Blood Pressure 116/71 133/71 132/71 Pulse Oximetry 100 100 100 09/14/18 15:40 09/14/18 15:45 09/14/18 15:48 Temperature Pulse Rate 80 82 Respiratory Rate 15 15 15 Blood Pressure 124/63 119/66 Pulse Oximetry 100 100 100 09/14/18 16:00 09/14/18 16:15 09/14/18 19:15 Temperature 98.5 F Pulse Rate 83 82 79 Respiratory Rate 24 9 L 15 Blood Pressure 131/69 122/69 121/69 Pulse Oximetry 100 100 100 09/14/18 19:30 09/14/18 19:45 09/14/18 20:00 Temperature 98.3 F Pulse Rate 85 89 80 Respiratory Rate 15 27 H 15 Blood Pressure 138/73 149/71 H 121/61 Pulse Oximetry 100 100 100 09/14/18 20:15 09/14/18 20:30 09/14/18 20:45 Temperature Pulse Rate 87 83 81 Respiratory Rate 22 16 11 L Blood Pressure 130/75 124/64 120/67 Pulse Oximetry 100 100 100 09/14/18 21:00 09/14/18 21:02 09/14/18 21:15 Temperature Pulse Rate 80 81 Respiratory Rate 9 L 21 19 Blood Pressure 117/64 121/68 Pulse Oximetry 100 100 100 09/14/18 21:30 09/14/18 21:45 09/14/18 22:00 Temperature Pulse Rate 82 80 80 Respiratory Rate 8 L 15 15 Blood Pressure 118/67 113/64 121/67 Pulse Oximetry 100 100 100 09/14/18 22:15 09/14/18 22:30 09/14/18 22:45 Temperature Pulse Rate 82 81 82 Respiratory Rate 15 15 12 Blood Pressure 136/69 123/66 118/65 Pulse Oximetry 100 100 100 09/14/18 23:00 09/14/18 23:15 09/14/18 23:20 Temperature Pulse Rate 82 83 Respiratory Rate 15 15 20 Blood Pressure 129/66 127/70 Pulse Oximetry 100 100 100 09/14/18 23:30 09/14/18 23:45 09/15/18 00:00 Temperature 98.1 F Pulse Rate 83 88 81 Respiratory Rate 18 15 6 L Blood Pressure 133/74 148/78 H 120/57 L Pulse Oximetry 100 100 100 09/15/18 00:15 09/15/18 00:30 09/15/18 00:45 Temperature Pulse Rate 82 84 92 H Respiratory Rate 19 13 14 Blood Pressure 124/69 130/74 136/79 Pulse Oximetry 100 100 100 09/15/18 01:00 09/15/18 01:15 09/15/18 01:30 Temperature Pulse Rate 80 80 83 Respiratory Rate 16 15 11 L Blood Pressure 112/64 107/60 120/61 Pulse Oximetry 100 100 100 09/15/18 01:45 09/15/18 02:00 09/15/18 02:15 Temperature Pulse Rate 81 84 79 Respiratory Rate 18 19 15 Blood Pressure 110/64 113/68 104/63 Pulse Oximetry 100 100 100 09/15/18 02:30 09/15/18 02:45 09/15/18 03:00 Temperature Pulse Rate 81 79 79 Respiratory Rate 15 15 15 Blood Pressure 111/66 116/62 111/64 Pulse Oximetry 100 100 100 09/15/18 03:15 09/15/18 03:30 09/15/18 03:45 Temperature Pulse Rate 78 79 81 Respiratory Rate 15 8 L 17 Blood Pressure 118/61 136/69 122/67 Pulse Oximetry 100 100 100 09/15/18 03:49 09/15/18 04:00 09/15/18 04:15 Temperature Pulse Rate 89 80 Respiratory Rate 18 14 16 Blood Pressure 160/76 H 122/67 Pulse Oximetry 100 100 100 09/15/18 04:30 09/15/18 04:45 09/15/18 05:00 Temperature Pulse Rate 82 80 81 Respiratory Rate 28 H 21 18 Blood Pressure 128/74 131/73 110/65 Pulse Oximetry 100 100 100 09/15/18 05:15 09/15/18 05:30 09/15/18 05:45 Temperature Pulse Rate 78 79 79 Respiratory Rate 17 16 15 Blood Pressure 111/62 118/67 122/67 Pulse Oximetry 100 100 100 09/15/18 06:00 09/15/18 06:15 09/15/18 06:30 Temperature Pulse Rate 78 77 82 Respiratory Rate 15 15 17 Blood Pressure 105/66 107/59 L 118/66 Pulse Oximetry 100 100 100 09/15/18 06:45 09/15/18 08:00 Temperature 98.3 F Pulse Rate 84 81 Respiratory Rate 16 15 Blood Pressure 114/70 122/71 Pulse Oximetry 100 99 Intake & Output 09/14/18 09/15/18 09/15/18 18:59 06:59 18:59 Intake Total 850 / 850 374 / 374 Output Total 3000 / 3000 Balance 850 / 850 374 / 374 -3000 / -3000 Weight 53.5 kg Intake: IV 700 / 700 Sodium Bicarbonate 8.4% Inj 150 700 / 700 MEQ In D5W Inj 850 ML @ 125 mls/hr IV.CONT .Q8H [facility] Rx#: [id number] Tube Feeding 254 / 254 Tube Irrigant 120 / 120 120 / 120 Output: Hemodialysis Amount 3000 / 3000 Other: Date of Last Bowel Movement 09/14/18 09/15/18 09/14/18 # Bowel Movements 2 Narrative: On the vent. Appears to understand verbal questions. Chest: vented breath sounds bilaterally, no rhonchi, no wheezing. Heart: RRR. 3/6 systolic murmur. No edema. s/p left BKA. Chronic ischemia right lower extremity. Assessment and Plan - Assessment (1) ESRD (end stage renal disease) Code(s): N18.6 - End stage renal disease Status: Chronic Plan: HD MWF. Seen during dialysis today. If she is NPO, start D10NS at 20 ml/hour for hyperkalemia. K+ stable She is s/p repair/excision of infected pseudoaneurysm of AVF, with apparent interposition bovine graft. Fistula pseudo aneurysm grossly infected. Previous steal history - no apparent signs of steal at this point. Currently with non-tunneled HD catheter, will need to change to tunneled catheter when blood cultures clear. ---- (2) Hyperkalemia Code(s): E87.5 - Hyperkalemia Status: Acute Plan: Improved. She was actually hypokalemic yesterday, on 4K today. Monitor. Repeat labs . (3) Altered mental status Code(s): R41.82 - Altered mental status, unspecified Status: Acute Plan: Could be due to uremia, but also could be due to sepsis. Supportive care. Monitor. Improving. (4) Renal mass Code(s): N28.89 - Other specified disorders of kidney and ureter Status: Acute Plan: Renal mass has grown in size, most likely malignancy. Urology note reviewed, to follow up after discharge. (5) Severe sepsis Code(s): A41.9 - Sepsis, unspecified organism; R65.20 - Severe sepsis without septic shock Status: Acute Plan: MRSA sepsis, endocarditis. MRI of the brain negative for septic emboli. She has mitral valve vegetation. On Vancomycin. s/p excision of infected pseudoaneurysm of AVF. (6) CAD (coronary artery disease) Code(s): I25.10 - Atherosclerotic heart disease of [place] coronary artery without angina pectoris Status: Chronic (7) PAD (peripheral artery disease) Code(s): I73.9 - Peripheral vascular disease, unspecified Status: Chronic Plan: s/p left BKA. Poor circulation of right lower extremity. (8) DM2 (diabetes mellitus, type 2) Code(s): E11.9 - Type 2 diabetes mellitus without complications Status: Chronic Plan: maintain blood glucose between 140 and 180 while hospitalized. - Attending Attestation Overall poor prognosis, palliative care consult is appropriate.
[2018-09-15] MEDS: Famotidine PF Inj 20 MG/2 ML Vial IV.PUSH SCH ×2 (10:37→20:21)
[2018-09-15] MEDS: Senna/Docusate Sodium 8.6/50 MG Tablet PO SCH ×2 (10:38→20:21)
--- NOTE | 2018-09-15 11:33 | MG ---
cc: Joseph Moore MD DATE: 09/15/2018. EEG NUMBER: [id number] INDICATION: Hypotensive, AV fistula, [place] Burn, morphine. FINDINGS: Recording shows diffuse 6 Hz slowing. The patient is noted to be intubated. No hemisphere asymmetries are noted. Artifact over the left temporal lobe is seen, muscle artifact. Photic stimulation is performed without significant posterior driving. IMPRESSION: Diffuse slowing consistent with a moderate diffuse encephalopathy, but no focal abnormalities were noted. No seizure activity was seen. Joseph Moore MD DJM/rh , 08:31 AM , 08:36 AM
[2018-09-15 12:27] LABS: Baso # (Auto) 0.1 th/mm3 (0.0-0.2); Baso % (Auto) 0.6 % (0.0-2.0); Eos % (Auto) 0.3 % (0.0-4.0); Hematocrit 28.5 % (35.0-46.0); Hemoglobin 9.3 gm/dL (11.6-15.3); Lymph # (Auto) 0.7 th/mm3 (1.0-4.8); Lymph % (Auto) 5.7 % (9.0-44.0); Mean Corpuscular HGB Conc 32.8 % (32.0-36.0); Mean Corpuscular Hemoglobin 26.4 pg (27.0-34.0); Mean Corpuscular Volume 80.6 fL (80.0-100.0); Mono # (Auto) 0.6 th/mm3 (0.0-0.9); Mono % (Auto) 4.4 % (0.0-8.0); Neut # (Auto) 11.7 th/mm3 (1.8-7.7); Platelet Count 223 th/mm3 (150-450); Red Blood Count 3.54 mil/mm3 (4.00-5.30); Red Cell Distribution Width 19.1 % (11.6-17.2); White Blood Count 13.2 th/mm3 (4.0-11.0)
[2018-09-15 13:12] LABS: Calcium 8.2 mg/dL (8.5-10.1); Carbon Dioxide 35.2 meq/L (21.0-32.0); Potassium 3.2 meq/L (3.5-5.1)
--- NOTE | 2018-09-15 16:44 | P.PNCC ---
Subjective Subjective Remarks/Hospital Course: No history is obtainable from the patient due to altered mental status. All history obtained from chart review and discussion with ED attending. Patient is a 58-year-old -[place] female with past medical history of type 2 diabetes, hypertension, hyperlipidemia, ESRD on HD M/W/F, CHF Echo 03/22/07 EF 30 -35%, CAD, s/p LAD stent 06/08, status post left BKA. Patient was brought to the emergency department by EMS for altered mental status. Apparently patient was found lying on the floor between 2 dressers, missed two dialysis appointments. CT of the head was negative for acute findings chest x-ray showed pulmonary vascular congestion, left lower lobe atelectasis. CT abdomen pelvis showed large 6.2 cm renal mass which has grown in size since last scan in Nov 2017, and suspicious for renal cell carcinoma. Her WBC count was 23.4 with left shift, with altered mental status this was most likely secondary to severe sepsis. Patient was empirically given vancomycin and Zosyn in the ED after getting blood cultures. Also her potassium was 6.3 patient is receiving bicarb now and nephrology had been contacted for stat dialysis I evaluated the patient in the emergency department. Patient is very lethargic encephalopathic. She mumbles a few words but did not follow commands. Even though very lethargic at this point she is protecting airway. In addition to IV bicarb I will also give 5 units of insulin and IV dextrose. Antibiotics will be continued-renally dosed vancomycin and Zosyn. Will request nephrology and urology consult. At this time critically ill with severe sepsis. SUBJ 09/07: Patient is lying in bed mental status seems to be improved alert oriented x2 today. Potassium is 5.3 chest x-ray shows pulmonary edema. Will request for repeat hemodialysis today 09/13: Rapid response team activated for patient hypotension and hypoxemia. After transfer to ICU I have found patient in agonal breathing and immediately intubated her with 7.5 ET tube. Shortly after intubation the patient was pulseless and 1 cycle of CPR was performed including one injection of epinephrine, chest compressions, and sodium bicarbonate injections. Family notified about the critical condition. 09/14: Remains encephalopathic, orally intubated on mechanical ventilation. 09/15: More awake, opening eyes, squeezing my fingers with her hands on command. Remains orally intubated on mechanical ventilation. Objective Vital Signs / I&O: Vital Signs 09/14/18 19:15 09/14/18 19:30 09/14/18 19:45 Temperature Pulse Rate 79 85 89 Respiratory Rate 15 15 27 H Blood Pressure 121/69 138/73 149/71 H Pulse Oximetry 100 100 100 09/14/18 20:00 09/14/18 20:15 09/14/18 20:30 Temperature 98.3 F Pulse Rate 80 87 83 Respiratory Rate 15 22 16 Blood Pressure 121/61 130/75 124/64 Pulse Oximetry 100 100 100 09/14/18 20:45 09/14/18 21:00 09/14/18 21:02 Temperature Pulse Rate 81 80 Respiratory Rate 11 L 9 L 21 Blood Pressure 120/67 117/64 Pulse Oximetry 100 100 100 09/14/18 21:15 09/14/18 21:30 09/14/18 21:45 Temperature Pulse Rate 81 82 80 Respiratory Rate 19 8 L 15 Blood Pressure 121/68 118/67 113/64 Pulse Oximetry 100 100 100 09/14/18 22:00 09/14/18 22:15 09/14/18 22:30 Temperature Pulse Rate 80 82 81 Respiratory Rate 15 15 15 Blood Pressure 121/67 136/69 123/66 Pulse Oximetry 100 100 100 09/14/18 22:45 09/14/18 23:00 09/14/18 23:15 Temperature Pulse Rate 82 82 83 Respiratory Rate 12 15 15 Blood Pressure 118/65 129/66 127/70 Pulse Oximetry 100 100 100 09/14/18 23:20 09/14/18 23:30 09/14/18 23:45 Temperature Pulse Rate 83 88 Respiratory Rate 20 18 15 Blood Pressure 133/74 148/78 H Pulse Oximetry 100 100 100 09/15/18 00:00 09/15/18 00:15 09/15/18 00:30 Temperature 98.1 F Pulse Rate 81 82 84 Respiratory Rate 6 L 19 13 Blood Pressure 120/57 L 124/69 130/74 Pulse Oximetry 100 100 100 09/15/18 00:45 09/15/18 01:00 09/15/18 01:15 Temperature Pulse Rate 92 H 80 80 Respiratory Rate 14 16 15 Blood Pressure 136/79 112/64 107/60 Pulse Oximetry 100 100 100 09/15/18 01:30 09/15/18 01:45 10/24/18 02:00 Temperature Pulse Rate 83 81 84 Respiratory Rate 11 L 18 19 Blood Pressure 120/61 110/64 113/68 Pulse Oximetry 100 100 100 09/15/18 02:15 09/15/18 02:30 09/15/18 02:45 Temperature Pulse Rate 79 81 79 Respiratory Rate 15 15 15 Blood Pressure 104/63 111/66 116/62 Pulse Oximetry 100 100 100 09/15/18 03:00 09/15/18 03:15 09/15/18 03:30 Temperature Pulse Rate 79 78 79 Respiratory Rate 15 15 8 L Blood Pressure 111/64 118/61 136/69 Pulse Oximetry 100 100 100 09/15/18 03:45 09/15/18 03:49 09/15/18 04:00 Temperature Pulse Rate 81 89 Respiratory Rate 17 18 14 Blood Pressure 122/67 160/76 H Pulse Oximetry 100 100 100 09/15/18 04:15 09/15/18 04:30 09/15/18 04:45 Temperature Pulse Rate 80 82 80 Respiratory Rate 16 28 H 21 Blood Pressure 122/67 128/74 131/73 Pulse Oximetry 100 100 100 09/15/18 05:00 09/15/18 05:15 09/15/18 05:30 Temperature Pulse Rate 81 78 79 Respiratory Rate 18 17 16 Blood Pressure 110/65 111/62 118/67 Pulse Oximetry 100 100 100 09/15/18 05:45 09/15/18 06:00 09/15/18 06:15 Temperature Pulse Rate 79 78 77 Respiratory Rate 15 15 15 Blood Pressure 122/67 105/66 107/59 L Pulse Oximetry 100 100 100 09/15/18 06:30 09/15/18 06:45 09/15/18 08:00 Temperature 98.3 F Pulse Rate 82 84 81 Respiratory Rate 17 16 15 Blood Pressure 118/66 114/70 122/71 Pulse Oximetry 100 100 99 09/15/18 11:17 09/15/18 12:00 09/15/18 15:43 Temperature 98.4 F Pulse Rate 78 Respiratory Rate 15 15 15 Blood Pressure 106/59 L Pulse Oximetry 100 09/15/18 16:00 Temperature Pulse Rate 82 Respiratory Rate Blood Pressure Pulse Oximetry Intake & Output 09/14/18 09/15/18 09/15/18 18:59 06:59 18:59 Intake Total 850 / 850 374 / 374 Output Total 3000 / 3000 Balance 850 / 850 374 / 374 -3000 / -3000 Weight 53.5 kg Intake: IV 700 / 700 Sodium Bicarbonate 8.4% Inj 150 700 / 700 MEQ In D5W Inj 850 ML @ 125 mls/hr IV.CONT .Q8H [facility] Rx#: [id number] Tube Feeding 30 / 30 254 / 254 Tube Irrigant 120 / 120 120 / 120 Output: Hemodialysis Amount 3000 / 3000 Other: Date of Last Bowel Movement 09/14/18 09/15/18 09/14/18 # Bowel Movements 2 Result Diagrams: 09/15/18 12:07 09/15/18 12:07 Imaging: Impressions Head MRI 09/14/18 00:00 CONCLUSION: Chronic small vessel ischemic and atrophic changes. Objective Remarks: GENERAL: 58-year-old AA female, lying in bed intubated and occasional eye opening however not following commands SKIN: Warm and dry. HEAD: Atraumatic. Normocephalic. EYES: Pupils equal and round, 2 mm reactive. No scleral icterus. ENT: No nasal bleeding or discharge. Mucous membranes dry. NECK: Trachea midline. No JVD. CARDIOVASCULAR: RRR. S1, S2 no S4. 2/6 pansystolic murmur RESPIRATORY: On mechanical ventilation, clear to auscultation. No wheezes rales or rhonchi. Diminished air entry at the bases GASTROINTESTINAL: Abdomen soft, non-tender, nondistended. MUSCULOSKELETAL: AV fistula in left upper arm with palpable thrill. s/p L BKA NEUROLOGICAL: Encephalopathic, orally intubated on mechanical ventilation, occasional eye opening, following commands. Assessment and Plan - Problem List (1) Toxic metabolic encephalopathy Code(s): G92 - Toxic encephalopathy Status: Acute (2) Severe sepsis Code(s): A41.9 - Sepsis, unspecified organism; R65.20 - Severe sepsis without septic shock Status: Acute (3) Altered mental status Code(s): R41.82 - Altered mental status, unspecified Status: Acute (4) Hyperkalemia Code(s): E87.5 - Hyperkalemia Status: Acute (5) ESRD (end stage renal disease) Code(s): N18.6 - End stage renal disease Status: Chronic (6) CAD (coronary artery disease) Code(s): I25.10 - Atherosclerotic heart disease of [place] coronary artery without angina pectoris Status: Chronic (7) PAD (peripheral artery disease) Code(s): I73.9 - Peripheral vascular disease, unspecified Status: Chronic (8) DM2 (diabetes mellitus, type 2) Code(s): E11.9 - Type 2 diabetes mellitus without complications Status: Chronic (9) Hypertension Code(s): I10 - Essential (primary) hypertension Status: Chronic (10) Ischemic cardiomyopathy Code(s): I25.5 - Ischemic cardiomyopathy Status: Chronic - Assessment and Plan Plan: Assessment and Plan NEURO: Toxic metabolic encephalopathy History of peripheral neuropathy History of glaucoma Avoid any sedating medication CT head negative for bleed. Encephalopathy most likely from metabolic causes/sepsis. EEG ordered. Neurology consult noted. MRI brain with no acute changes. RESP: Respiratory failure Pulmonary edema Intubated for airway protection DuoNeb every 6 hours scheduled and as needed Continue mechanical ventilation No weaning until neurologically improved CV: Coronary artery disease with prior stents (LAD stent 06/08) Chronic systolic heart failure ejection fraction 30-35% 2016 Severe TR s/p L BKA s/p R iliofemoral bypass and R fem-pop bypass by Dr. Ramirez 11/26/17 Peripheral arterial disease Hypertension, dyslipidemia Continue baby aspirin GI: IV famotidine Tolerating Nepro tube feeds. FEN/RENAL: ESRD Large right renal mass suspicious for renal cell carcinoma Hemodialysis Thursday/Thursday/Thursday per nephrology, Dr Ahumada. Urology consulted for right renal mass (previously refused work up) ID: Severe sepsis Source of sepsis is unclear at this time, possibly HD access Received vancomycin and Zosyn in the ED, continue both renally dosed Follow-up on blood culture Antibiotics per ID Dr. Dowd HEME: Anemia of chronic disease No indication for blood transfusion at this time ENDO: Diabetes mellitus, type II Low-dose insulin sliding scale q6h PROPH: Heparin 5000 subcutaneous to 12 for DVT prophylaxis-resumed. IV famotidine for stress ulcer prophylaxis. ACCESS: Right groin central line 09/13/2018-to be discontinued 09/15 35 minutes of critical care Critically ill with sepsis, respiratory failure and encephalopathy.
--- NOTE | 2018-09-15 17:43 | P.PNID ---
Subjective Remarks: last set of BC NGTD @ 4days improved neurologically follows commands with all 4 2 D echo with MV vegetation afebrile Antibiotics: vancomycin Allergies/Adverse Reactions: Allergies latex Allergy (Severe, Unverified 09/06/18 11:19) Edema RASH Objective Vital Signs 09/14/18 19:15 09/14/18 19:30 09/14/18 19:45 Temperature Pulse Rate 79 85 89 Respiratory Rate 15 15 27 H Blood Pressure 121/69 138/73 149/71 H Pulse Oximetry 100 100 100 09/14/18 20:00 09/14/18 20:15 09/14/18 20:30 Temperature 98.3 F Pulse Rate 80 87 83 Respiratory Rate 15 22 16 Blood Pressure 121/61 130/75 124/64 Pulse Oximetry 100 100 100 09/14/18 20:45 09/14/18 21:00 09/14/18 21:02 Temperature Pulse Rate 81 80 Respiratory Rate 11 L 9 L 21 Blood Pressure 120/67 117/64 Pulse Oximetry 100 100 100 09/14/18 21:15 09/14/18 21:30 09/14/18 21:45 Temperature Pulse Rate 81 82 80 Respiratory Rate 19 8 L 15 Blood Pressure 121/68 118/67 113/64 Pulse Oximetry 100 100 100 09/14/18 22:00 09/14/18 22:15 09/14/18 22:30 Temperature Pulse Rate 80 82 81 Respiratory Rate 15 15 15 Blood Pressure 121/67 136/69 123/66 Pulse Oximetry 100 100 100 09/14/18 22:45 09/14/18 23:00 09/14/18 23:15 Temperature Pulse Rate 82 82 83 Respiratory Rate 12 15 15 Blood Pressure 118/65 129/66 127/70 Pulse Oximetry 100 100 100 09/14/18 23:20 09/14/18 23:30 09/14/18 23:45 Temperature Pulse Rate 83 88 Respiratory Rate 20 18 15 Blood Pressure 133/74 148/78 H Pulse Oximetry 100 100 100 09/15/18 00:00 09/15/18 00:15 09/15/18 00:30 Temperature 98.1 F Pulse Rate 81 82 84 Respiratory Rate 6 L 19 13 Blood Pressure 120/57 L 124/69 130/74 Pulse Oximetry 100 100 100 09/15/18 00:45 09/15/18 01:00 09/15/18 01:15 Temperature Pulse Rate 92 H 80 80 Respiratory Rate 14 16 15 Blood Pressure 136/79 112/64 107/60 Pulse Oximetry 100 100 100 09/15/18 01:30 09/15/18 01:45 09/15/18 02:00 Temperature Pulse Rate 83 81 84 Respiratory Rate 11 L 18 19 Blood Pressure 120/61 110/64 113/68 Pulse Oximetry 100 100 100 09/15/18 02:15 09/15/18 02:30 09/15/18 02:45 Temperature Pulse Rate 79 81 79 Respiratory Rate 15 15 15 Blood Pressure 104/63 111/66 116/62 Pulse Oximetry 100 100 100 09/15/18 03:00 09/15/18 03:15 09/15/18 03:30 Temperature Pulse Rate 79 78 79 Respiratory Rate 15 15 8 L Blood Pressure 111/64 118/61 136/69 Pulse Oximetry 100 100 100 09/15/18 03:45 09/15/18 03:49 09/15/18 04:00 Temperature Pulse Rate 81 89 Respiratory Rate 17 18 14 Blood Pressure 122/67 160/76 H Pulse Oximetry 100 100 100 09/15/18 04:15 09/15/18 04:30 09/15/18 04:45 Temperature Pulse Rate 80 82 80 Respiratory Rate 16 28 H 21 Blood Pressure 122/67 128/74 131/73 Pulse Oximetry 100 100 100 09/15/18 05:00 09/15/18 05:15 09/15/18 05:30 Temperature Pulse Rate 81 78 79 Respiratory Rate 18 17 16 Blood Pressure 110/65 111/62 118/67 Pulse Oximetry 100 100 100 09/15/18 05:45 09/15/18 06:00 09/15/18 06:15 Temperature Pulse Rate 79 78 77 Respiratory Rate 15 15 15 Blood Pressure 122/67 105/66 107/59 L Pulse Oximetry 100 100 100 09/15/18 06:30 09/15/18 06:45 09/15/18 08:00 Temperature 98.3 F Pulse Rate 82 84 81 Respiratory Rate 17 16 15 Blood Pressure 118/66 114/70 122/71 Pulse Oximetry 100 100 99 09/15/18 11:17 09/15/18 12:00 09/15/18 15:43 Temperature 98.4 F Pulse Rate 78 Respiratory Rate 15 15 15 Blood Pressure 106/59 L Pulse Oximetry 100 09/15/18 16:00 Temperature 98.8 F Pulse Rate 84 Respiratory Rate 15 Blood Pressure 99/57 L Pulse Oximetry Intake & Output 09/14/18 09/15/18 09/15/18 18:59 06:59 18:59 Intake Total 850 / 850 374 / 374 Output Total 3000 / 3000 Balance 850 / 850 374 / 374 -3000 / -3000 Weight 53.5 kg Intake: IV 700 / 700 Sodium Bicarbonate 8.4% Inj 150 700 / 700 MEQ In D5W Inj 850 ML @ 125 mls/hr IV.CONT .Q8H [facility] Rx#: [id number] Tube Feeding 254 / 254 Tube Irrigant 120 / 120 120 / 120 Output: Hemodialysis Amount 3000 / 3000 Other: Date of Last Bowel Movement 09/14/18 09/15/18 09/14/18 # Bowel Movements 2 09/11/18 08:30 Blood - Peripheral Aerobic Blood Culture - Preliminary No growth in 4 days 09/11/18 08:30 Blood - Peripheral Anaerobic Blood Culture - Final QNS - See aerobic report. 09/11/18 08:39 Blood - Peripheral Aerobic Blood Culture - Preliminary No growth in 4 days 09/11/18 08:39 Blood - Peripheral Anaerobic Blood Culture - Preliminary No growth in 4 days Lab - Hematology Results 09/14/18 09/15/18 09:00 12:07 WBC 13.6 H 13.2 H RBC 3.67 L 3.54 L Hgb 9.8 L 9.3 L Hct 29.5 L 28.5 L MCV 80.6 80.6 MCH 26.8 L 26.4 L MCHC 33.2 32.8 RDW 19.0 H 19.1 H Plt Count 199 223 MPV 10.5 10.0 Neut % (Auto) 91.6 H 89.0 H Lymph % (Auto) 5.6 L 5.7 L Richardson % (Auto) 2.4 4.4 Eos % (Auto) 0.1 0.3 Baso % (Auto) 0.3 0.6 Neut # (Auto) 12.5 H 11.7 H Lymph # (Auto) 0.8 L 0.7 L Richardson # (Auto) 0.3 0.6 Eos # (Auto) 0.0 0.0 Baso # (Auto) 0.0 0.1 WBC Differential . . Differential Comment Auto diff final Auto diff final Lab - Chemistry Results 09/13/18 09/14/18 09/14/18 21:25 06:30 07:18 Sodium Potassium Chloride Carbon Dioxide Anion Gap BUN Creatinine Estimated GFR POC Glucose 202 H 232 H 240 H Random Glucose Calcium Total Bilirubin AST ALT Alkaline Phosphatase Total Creatine Kinase CK-MB (CK-2) CK-MB (CK-2) % Total Protein Albumin Vitamin B12 Folate 09/14/18 09/14/18 09/14/18 09:00 09:00 09:00 Sodium 139 Potassium 2.9 L* D Chloride 92 L Carbon Dioxide 37.5 H D Anion Gap 10 BUN 32 H Creatinine 4.11 H Estimated GFR 14 L POC Glucose Random Glucose 241 H D Calcium 8.0 L Total Bilirubin 1.0 AST 1650 H ALT 164 H Alkaline Phosphatase 238 H Total Creatine Kinase 261 H CK-MB (CK-2) 5.2 H CK-MB (CK-2) % 2.0 Total Protein 6.1 L D Albumin 1.6 L Vitamin B12 Greater than 2000 H Folate 7.4 09/14/18 09/14/18 09/14/18 11:26 16:43 19:59 Sodium Potassium Chloride Carbon Dioxide Anion Gap BUN Creatinine Estimated GFR POC Glucose 218 H 85 128 H Random Glucose Calcium Total Bilirubin AST ALT Alkaline Phosphatase Total Creatine Kinase CK-MB (CK-2) CK-MB (CK-2) % Total Protein Albumin Vitamin B12 Folate 09/15/18 09/15/18 09/15/18 00:22 05:55 12:07 Sodium 139 Potassium 3.2 L Chloride 96 L Carbon Dioxide 35.2 H Anion Gap 8 BUN 18 Creatinine 2.66 H Estimated GFR 22 L POC Glucose 158 H 141 H Random Glucose 157 H Calcium 8.2 L Total Bilirubin AST ALT Alkaline Phosphatase Total Creatine Kinase CK-MB (CK-2) CK-MB (CK-2) % Total Protein Albumin Vitamin B12 Folate 09/15/18 12:51 Sodium Potassium Chloride Carbon Dioxide Anion Gap BUN Creatinine Estimated GFR POC Glucose 175 H Random Glucose Calcium Total Bilirubin AST ALT Alkaline Phosphatase Total Creatine Kinase CK-MB (CK-2) CK-MB (CK-2) % Total Protein Albumin Vitamin B12 Folate Imaging: ITS Impressions Abdomen/Pelvis CT 09/06/18 11:10 CONCLUSION: 1. Moderate stool in the rectum. No dilated loops of bowel to suggest obstruction. 2. Persistent large solid mass arising from the superior pole the right kidney measuring up to 6.2 cm. This is a renal cell carcinoma until proven otherwise. 3. End-stage appearing kidneys bilaterally. 4. Prominent diffuse vascular calcifications. Upper Extremity Ultrasound 09/09/18 00:00 CONCLUSION: Mixed echogenicity collection around the proximal fistula outflow in the medial left upper arm. Arterial Ultrasound 09/10/18 00:00 CONCLUSION: 1. Right iliofemoral and femoral popliteal bypass grafts appear to be occluded. 2. Occlusion of the [place] superficial femoral and popliteal arteries. Proximal trifurcation vessels also appear to be occluded. 3. Monophasic signal in the right external iliac, common femoral and profunda femoral arteries. 4. CTA abdomen and runoff could be performed for anatomic characterization if clinically warranted. Catheter Placement 09/10/18 00:00 CONCLUSION: 1. Uncomplicated line placement as above. The patient has an occluded right internal jugular vein. This catheter was placed in the external jugular vein. Extremity Arterial Study 09/10/18 00:00 CONCLUSION: 1. Findings discerning for significant right lower extremity ischemia and likely occlusion of the right femoral to popliteal bypass graft with nearly flat waveforms and unobtainable pressures. 2. Status post left BKA. Tibia/Fibula X-Ray 09/13/18 00:00 CONCLUSION: 1. Status post below the knee amputation. 2. No evidence to suggest osteomyelitis. 3. Possible soft tissue erosion at the base of the amputation. Head CT 09/13/18 06:22 CONCLUSION: 1. No acute intracranial abnormality. 2. Progressive right maxillary sinus mucosal disease. . Chest X-Ray 09/13/18 06:44 CONCLUSION: 1. ETT 4 mm above the valeria. 2. Right IJ dialysis catheter in good position. 3. Persistent positive fluid balance. 4. Mild left lung base atelectasis/scarring. Head MRI 09/14/18 00:00 CONCLUSION: Chronic small vessel ischemic and atrophic changes. Physical Exam: GENERAL: NAD lethargic, arousable SKIN: Warm and dry. HEAD: Atraumatic. Normocephalic. EYES: diconjugated gaze ENT: No nasal bleeding or discharge. Mucous membranes pink and moist. NECK: Trachea midline. No JVD. CARDIOVASCULAR: Regular rate and rhythm. + murmur 3/6 systolic RESPIRATORY: No accessory muscle use. Clear to auscultation. Breath sounds equal bilaterally. GASTROINTESTINAL: Abdomen soft, non-tender, nondistended. Hepatic and splenic margins not palpable. MUSCULOSKELETAL: Extremities without clubbing, cyanosis, or edema. L BKA: opening in the middle of incision, draining white pus cold to touch R foot, not refilling, pulseless L BKA with small staining on the dressing L UE I dressing in place with small amount of serosang dc NEUROLOGICAL: pt is lehtargic, arousable ; responsive to verbal stimuli, moving extremeties to command PSYCHIATRIC: unable to assess LINES: vascath in place R chest Assessment and Plan - Plan New issue: sp code ? stroke MRSA sepsis: souce MV endocarditis MV endocartditis AMS no septic emboli HD, non comliance came with electrolytes imbalance Ischemic R foot - vasc surgery ff Non healing L BKA site. Needs revision XR neg for osteo no acute ischemia h/o RLE ileofemoral and fem pop bypass in Feb 2018 Infected pseudoaneurism of R UE AVF - sp repair cont vancomycin w HD keep trough levels 15-20; trough remains low dw RN
--- NOTE | 2018-09-15 19:10 | P.PNVS ---
Subjective Subjective/Hospital Course: intubated, open eyes to stimuli, following commands Doing well on CPAP. Objective Vital Signs / I&O: Vital Signs 09/14/18 19:15 09/14/18 19:30 09/14/18 19:45 Temperature Pulse Rate 79 85 89 Respiratory Rate 15 15 27 H Blood Pressure 121/69 138/73 149/71 H Pulse Oximetry 100 100 100 09/14/18 20:00 09/14/18 20:15 09/14/18 20:30 Temperature 98.3 F Pulse Rate 80 87 83 Respiratory Rate 15 22 16 Blood Pressure 121/61 130/75 124/64 Pulse Oximetry 100 100 100 09/14/18 20:45 09/14/18 21:00 09/14/18 21:02 Temperature Pulse Rate 81 80 Respiratory Rate 11 L 9 L 21 Blood Pressure 120/67 117/64 Pulse Oximetry 100 100 100 09/14/18 21:15 09/14/18 21:30 09/14/18 21:45 Temperature Pulse Rate 81 82 80 Respiratory Rate 19 8 L 15 Blood Pressure 121/68 118/67 113/64 Pulse Oximetry 100 100 100 09/14/18 22:00 09/14/18 22:15 09/14/18 22:30 Temperature Pulse Rate 80 82 81 Respiratory Rate 15 15 15 Blood Pressure 121/67 136/69 123/66 Pulse Oximetry 100 100 100 09/14/18 22:45 09/14/18 23:00 09/14/18 23:15 Temperature Pulse Rate 82 82 83 Respiratory Rate 12 15 15 Blood Pressure 118/65 129/66 127/70 Pulse Oximetry 100 100 100 09/14/18 23:20 09/14/18 23:30 09/14/18 23:45 Temperature Pulse Rate 83 88 Respiratory Rate 20 18 15 Blood Pressure 133/74 148/78 H Pulse Oximetry 100 100 100 09/15/18 00:00 09/15/18 00:15 09/15/18 00:30 Temperature 98.1 F Pulse Rate 81 82 84 Respiratory Rate 6 L 19 13 Blood Pressure 120/57 L 124/69 130/74 Pulse Oximetry 100 100 100 09/15/18 00:45 09/15/18 01:00 09/15/18 01:15 Temperature Pulse Rate 92 H 80 80 Respiratory Rate 14 16 15 Blood Pressure 136/79 112/64 107/60 Pulse Oximetry 100 100 100 10/24/18 01:30 09/15/18 01:45 09/15/18 02:00 Temperature Pulse Rate 83 81 84 Respiratory Rate 11 L 18 19 Blood Pressure 120/61 110/64 113/68 Pulse Oximetry 100 100 100 09/15/18 02:15 09/15/18 02:30 09/15/18 02:45 Temperature Pulse Rate 79 81 79 Respiratory Rate 15 15 15 Blood Pressure 104/63 111/66 116/62 Pulse Oximetry 100 100 100 09/15/18 03:00 09/15/18 03:15 09/15/18 03:30 Temperature Pulse Rate 79 78 79 Respiratory Rate 15 15 8 L Blood Pressure 111/64 118/61 136/69 Pulse Oximetry 100 100 100 09/15/18 03:45 09/15/18 03:49 09/15/18 04:00 Temperature Pulse Rate 81 89 Respiratory Rate 17 18 14 Blood Pressure 122/67 160/76 H Pulse Oximetry 100 100 100 09/15/18 04:15 09/15/18 04:30 09/15/18 04:45 Temperature Pulse Rate 80 82 80 Respiratory Rate 16 28 H 21 Blood Pressure 122/67 128/74 131/73 Pulse Oximetry 100 100 100 09/15/18 05:00 09/15/18 05:15 09/15/18 05:30 Temperature Pulse Rate 81 78 79 Respiratory Rate 18 17 16 Blood Pressure 110/65 111/62 118/67 Pulse Oximetry 100 100 100 09/15/18 05:45 09/15/18 06:00 09/15/18 06:15 Temperature Pulse Rate 79 78 77 Respiratory Rate 15 15 15 Blood Pressure 122/67 105/66 107/59 L Pulse Oximetry 100 100 100 09/15/18 06:30 09/15/18 06:45 09/15/18 08:00 Temperature 98.3 F Pulse Rate 82 84 81 Respiratory Rate 17 16 15 Blood Pressure 118/66 114/70 122/71 Pulse Oximetry 100 100 99 09/15/18 11:17 09/15/18 12:00 09/15/18 15:43 Temperature 98.4 F Pulse Rate 78 Respiratory Rate 15 15 15 Blood Pressure 106/59 L Pulse Oximetry 100 09/15/18 16:00 Temperature 98.8 F Pulse Rate 84 Respiratory Rate 15 Blood Pressure 99/57 L Pulse Oximetry Intake & Output 09/15/18 09/15/18 09/16/18 06:59 18:59 06:59 Intake Total 374 / 374 492 / 492 Output Total 3000 / 3000 Balance 374 / 374 -2508 / -2508 Weight 53.5 kg Intake: Tube Feeding 254 / 254 392 / 392 Tube Irrigant 120 / 120 Water Bolus Amount 100 / 100 Output: Hemodialysis Amount 3000 / 3000 Other: Date of Last Bowel Movement 09/15/18 09/14/18 # Bowel Movements 2 0 Physical Exam: Left upper extremity wound is clean dry intact. Left BKA wound is open and the mid aspect with minimal serous inguinal drainage Right lower extremity with a monophasic dorsalis pedis signal. Laboratory Results - last 24 hr 09/14/18 09/15/18 09/15/18 19:59 00:22 03:30 WBC RBC Hgb Hct MCV MCH MCHC RDW Plt Count MPV Neut % (Auto) Lymph % (Auto) Taylor % (Auto) Eos % (Auto) Baso % (Auto) Neut # (Auto) Lymph # (Auto) [place] # (Auto) Eos # (Auto) Baso # (Auto) WBC Differential Differential Comment Sodium Potassium Chloride Carbon Dioxide Anion Gap BUN Creatinine Estimated GFR POC Glucose 128 H 158 H Random Glucose Calcium Random Vancomycin 14.7 09/15/18 09/15/18 09/15/18 05:55 12:07 12:07 WBC 13.2 H RBC 3.54 L Hgb 9.3 L Hct 28.5 L MCV 80.6 MCH 26.4 L MCHC 32.8 RDW 19.1 H Plt Count 223 MPV 10.0 Neut % (Auto) 89.0 H Lymph % (Auto) 5.7 L Taylor % (Auto) 4.4 Eos % (Auto) 0.3 Baso % (Auto) 0.6 Neut # (Auto) 11.7 H Lymph # (Auto) 0.7 L Taylor # (Auto) 0.6 Eos # (Auto) 0.0 Baso # (Auto) 0.1 WBC Differential . Differential Comment Auto diff final Sodium 139 Potassium 3.2 L Chloride 96 L Carbon Dioxide 35.2 H Anion Gap 8 BUN 18 Creatinine 2.66 H Estimated GFR 22 L POC Glucose 141 H Random Glucose 157 H Calcium 8.2 L Random Vancomycin 09/15/18 09/15/18 12:51 17:56 WBC RBC Hgb Hct MCV MCH MCHC RDW Plt Count MPV Neut % (Auto) Lymph % (Auto) [place] % (Auto) Eos % (Auto) Baso % (Auto) Neut # (Auto) Lymph # (Auto) Taylor # (Auto) Eos # (Auto) Baso # (Auto) WBC Differential Differential Comment Sodium Potassium Chloride Carbon Dioxide Anion Gap BUN Creatinine Estimated GFR POC Glucose 175 H 95 Random Glucose Calcium Random Vancomycin Microbiology 09/11/18 08:30 Aerobic Blood Culture - Preliminary Blood - Peripheral No growth in 4 days Anaerobic Blood Culture - Final QNS - See aerobic report. 09/11/18 08:39 Aerobic Blood Culture - Preliminary Blood - Peripheral No growth in 4 days Anaerobic Blood Culture - Preliminary No growth in 4 days Impressions Head MRI 09/14/18 00:00 CONCLUSION: Chronic small vessel ischemic and atrophic changes. Assessment and Plan - Assessment (1) Abscess of upper extremity Code(s): L02.419 - Cutaneous abscess of limb, unspecified Status: Acute (2) Toxic metabolic encephalopathy Code(s): G92 - Toxic encephalopathy Status: Acute (3) Severe sepsis Code(s): A41.9 - Sepsis, unspecified organism; R65.20 - Severe sepsis without septic shock Status: Acute (4) PAD (peripheral artery disease) Code(s): I73.9 - Peripheral vascular disease, unspecified Status: Chronic - Plan Left upper extremity abscess, infected hematoma. S/P excision of infected PSA. Right lower extremity peripheral vascular disease Stable with no acute limb ischemia. LBKA stump will need revision in the future. Patient is clinically improving. We will continue to follow
[2018-09-16] MEDS: Insulin NovoLOG Aspart Correctional Sugar Inj SQ SCH (01:34)
[2018-09-16 05:47] LABS: Albumin 1.7 g/dL (3.4-5.0); Calcium 8.1 mg/dL (8.5-10.1); Carbon Dioxide 31.6 meq/L (21.0-32.0); Phosphorus 2.7 mg/dL (2.5-4.9); Potassium 3.5 meq/L (3.5-5.1)
[2018-09-16] MEDS: Heparin - SQ 10,000 UNITS/ML Vial SQ SCH ×2 (06:53→17:14)
--- NOTE | 2018-09-16 08:17 | P.PNCC ---
Subjective Subjective Remarks/Hospital Course: No history is obtainable from the patient due to altered mental status. All history obtained from chart review and discussion with ED attending. Patient is a 58-year-old -[place] female with past medical history of type 2 diabetes, hypertension, hyperlipidemia, ESRD on HD M/W/F, CHF Echo 03/22/07 EF 30 -35%, CAD, s/p LAD stent 06/08, status post left BKA. Patient was brought to the emergency department by EMS for altered mental status. Apparently patient was found lying on the floor between 2 dressers, missed two dialysis appointments. CT of the head was negative for acute findings chest x-ray showed pulmonary vascular congestion, left lower lobe atelectasis. CT abdomen pelvis showed large 6.2 cm renal mass which has grown in size since last scan in Nov 2017, and suspicious for renal cell carcinoma. Her WBC count was 23.4 with left shift, with altered mental status this was most likely secondary to severe sepsis. Patient was empirically given vancomycin and Zosyn in the ED after getting blood cultures. Also her potassium was 6.3 patient is receiving bicarb now and nephrology had been contacted for stat dialysis I evaluated the patient in the emergency department. Patient is very lethargic encephalopathic. She mumbles a few words but did not follow commands. Even though very lethargic at this point she is protecting airway. In addition to IV bicarb I will also give 5 units of insulin and IV dextrose. Antibiotics will be continued-renally dosed vancomycin and Zosyn. Will request nephrology and urology consult. At this time critically ill with severe sepsis. SUBJ 09/07: Patient is lying in bed mental status seems to be improved alert oriented x2 today. Potassium is 5.3 chest x-ray shows pulmonary edema. Will request for repeat hemodialysis today 09/13: Rapid response team activated for patient hypotension and hypoxemia. After transfer to ICU I have found patient in agonal breathing and immediately intubated her with 7.5 ET tube. Shortly after intubation the patient was pulseless and 1 cycle of CPR was performed including one injection of epinephrine, chest compressions, and sodium bicarbonate injections. Family notified about the critical condition. 09/14: Remains encephalopathic, orally intubated on mechanical ventilation. 09/15: More awake, opening eyes, squeezing my fingers with her hands on command. Remains orally intubated on mechanical ventilation. 09/16: clinically improving. following commands. on PSV 15/5/40%. HD yesterday with good volume removal. Objective Vital Signs / I&O: Vital Signs 09/15/18 09:00 09/15/18 09:15 09/15/18 09:30 Temperature Pulse Rate 82 80 81 Respiratory Rate 15 16 23 Blood Pressure 120/64 128/62 123/67 Pulse Oximetry 100 100 100 09/15/18 09:45 09/15/18 10:00 09/15/18 11:00 Temperature Pulse Rate 78 80 83 Respiratory Rate 15 15 15 Blood Pressure 94/57 L 139/72 132/70 Pulse Oximetry 100 100 100 09/15/18 11:17 09/15/18 12:00 09/15/18 13:00 Temperature 36.9 C Pulse Rate 78 83 Respiratory Rate 15 15 23 Blood Pressure 106/59 L 123/72 Pulse Oximetry 100 100 100 09/15/18 14:00 09/15/18 15:00 09/15/18 15:43 Temperature Pulse Rate 84 80 Respiratory Rate 18 9 L 15 Blood Pressure 119/59 L 95/52 L Pulse Oximetry 100 100 09/15/18 16:00 09/15/18 16:30 09/15/18 17:00 Temperature 37.1 C Pulse Rate 82 80 82 Respiratory Rate 8 L 13 14 Blood Pressure 99/57 L 107/63 110/65 Pulse Oximetry 100 100 100 09/15/18 17:30 09/15/18 18:00 09/15/18 18:30 Temperature Pulse Rate 80 82 79 Respiratory Rate 18 20 11 L Blood Pressure 101/61 111/67 107/60 Pulse Oximetry 100 100 100 09/15/18 19:00 09/15/18 19:30 09/15/18 20:00 Temperature 37.3 C Pulse Rate 79 84 92 H Respiratory Rate 9 L 16 32 H Blood Pressure 99/60 L 124/66 131/89 Pulse Oximetry 100 100 100 09/15/18 20:05 09/15/18 20:30 09/15/18 21:00 Temperature Pulse Rate 83 83 Respiratory Rate 19 15 15 Blood Pressure 124/67 116/66 Pulse Oximetry 100 100 100 09/15/18 21:30 09/15/18 22:00 09/15/18 22:30 Temperature Pulse Rate 84 84 84 Respiratory Rate 15 20 15 Blood Pressure 124/67 127/69 124/70 Pulse Oximetry 100 100 100 09/15/18 23:00 09/15/18 23:30 09/16/18 00:00 Temperature 37.3 C Pulse Rate 82 87 90 Respiratory Rate 18 39 H 22 Blood Pressure 120/65 143/73 H 137/72 Pulse Oximetry 100 100 100 09/16/18 00:28 09/16/18 00:30 09/16/18 01:00 Temperature Pulse Rate 91 H 88 Respiratory Rate 21 15 22 Blood Pressure 143/74 H 144/74 H Pulse Oximetry 100 100 100 09/16/18 01:30 09/16/18 02:00 09/16/18 02:30 Temperature Pulse Rate 87 90 87 Respiratory Rate 23 17 17 Blood Pressure 137/75 158/77 H 147/77 H Pulse Oximetry 100 100 100 09/16/18 03:00 09/16/18 03:30 09/16/18 04:00 Temperature 37.2 C Pulse Rate 87 91 H 88 Respiratory Rate 22 19 15 Blood Pressure 151/78 H 152/80 H 145/75 H Pulse Oximetry 100 100 100 09/16/18 04:30 09/16/18 04:37 09/16/18 05:00 Temperature Pulse Rate 87 91 H Respiratory Rate 15 15 18 Blood Pressure 153/77 H 155/77 H Pulse Oximetry 100 100 100 09/16/18 05:30 09/16/18 05:47 09/16/18 06:00 Temperature Pulse Rate 107 H 92 H 95 H Respiratory Rate 35 H 26 H 16 Blood Pressure 155/110 H 155/77 H 156/84 H Pulse Oximetry 100 100 100 09/16/18 06:30 09/16/18 07:00 09/16/18 07:20 Temperature Pulse Rate 84 89 Respiratory Rate 9 L 16 8 L Blood Pressure 146/71 H 149/74 H Pulse Oximetry 100 100 100 09/16/18 07:30 Temperature Pulse Rate 93 H Respiratory Rate 12 Blood Pressure 144/78 H Pulse Oximetry 100 Intake & Output 09/15/18 09/16/18 09/16/18 18:59 06:59 18:59 Intake Total 492 / 492 1132 / 1132 Output Total 3000 / 3000 3050 / 3050 Balance -2508 / -250 -191 / -1917 Weight 51 kg Intake: Tube Feeding 392 / 392 732 / 732 Water Bolus Amount 100 / 100 150 / 150 Anesthesia Amount 250 / 250 Output: Urine 0 / 0 Stool 0 / 0 Urine/Stool Mix 0 / 0 Hemodialysis Amount 3000 / 3000 3000 / 3000 Estimated Blood Loss 50 / 50 Other: Post Void Residual 0 # Voids 0 # Incontinent Voids 0 # Urine Diapers 0 Date of Last Bowel Movement 09/14/18 09/14/18 # Bowel Movements 0 0 # Incontinent Bowel Movements 0 Result Diagrams: 09/15/18 12:07 09/16/18 04:21 Objective Remarks: GENERAL: 58-year-old AA female, lying in bed intubated. SKIN: Warm and dry. HEAD: Atraumatic. Normocephalic. EYES: Pupils equal and round, 2 mm reactive. No scleral icterus. ENT: No nasal bleeding or discharge. Mucous membranes moist NECK: Trachea midline. No JVD. CARDIOVASCULAR: RRR. sinus. RESPIRATORY: On mechanical ventilation, equal chest rise. PSV 15/5/40% GASTROINTESTINAL: Abdomen soft, non-tender, nondistended. MUSCULOSKELETAL: AV fistula in left upper arm with palpable thrill. s/p L BKA NEUROLOGICAL: awake, alert, follows commands. RASS 0. Assessment and Plan - Problem List (1) Toxic metabolic encephalopathy Code(s): G92 - Toxic encephalopathy Status: Acute (2) Severe sepsis Code(s): A41.9 - Sepsis, unspecified organism; R65.20 - Severe sepsis without septic shock Status: Acute (3) Altered mental status Code(s): R41.82 - Altered mental status, unspecified Status: Acute (4) Hyperkalemia Code(s): E87.5 - Hyperkalemia Status: Acute (5) ESRD (end stage renal disease) Code(s): N18.6 - End stage renal disease Status: Chronic (6) CAD (coronary artery disease) Code(s): I25.10 - Atherosclerotic heart disease of [place] coronary artery without angina pectoris Status: Chronic (7) PAD (peripheral artery disease) Code(s): I73.9 - Peripheral vascular disease, unspecified Status: Chronic (8) DM2 (diabetes mellitus, type 2) Code(s): E11.9 - Type 2 diabetes mellitus without complications Status: Chronic (9) Hypertension Code(s): I10 - Essential (primary) hypertension Status: Chronic (10) Ischemic cardiomyopathy Code(s): I25.5 - Ischemic cardiomyopathy Status: Chronic - Assessment and Plan Plan: Assessment: 58yF with ESRD, 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 remains critically ill. From an endocarditis standpoint, does not meet criteria at this time for early valve replacement, and overall is a very poor open cardiac surgery candidate given comorbid conditions. However, may require valve replacement in the future. will hold off on CT surgery consult at this time given multiple active problems. will work towards weaning mechanical ventilation today and ongoing volume removal with IHD. NEURO: Toxic metabolic encephalopathy- improving. History of peripheral neuropathy History of glaucoma Avoid any sedating medication CT head negative for bleed. Encephalopathy most likely from metabolic causes/sepsis. EEG generalized slowing 09/15 MRI brain 09/15 no acute disease. Neurology following RESP: Acute hypoxic and hypercarbic Respiratory failure Pulmonary edema DuoNeb every 6 hours scheduled and as needed Continue mechanical ventilation start SBTs today wean fio2 for goal spo2 > 90% vent bundle, hob elevated, nebs CV: Coronary artery disease with prior stents (LAD stent 06/08) Chronic systolic heart failure ejection fraction 30-35% 2016 Severe TR Severe mitral regurgitation [place] mitral valve infective endocarditis s/p L BKA s/p R iliofemoral bypass and R fem-pop bypass by Dr. Ramirez 11/26/17 Peripheral arterial disease Hypertension, dyslipidemia Continue baby aspirin severe MR continues to require volume removal. HD per nephrology. GI: Acute protein calorie malnutrition- severe change to PO pepcid Tolerating Nepro tube feeds. send pre-albumin. very cachectic. FEN/RENAL: ESRD Large right renal mass suspicious for renal cell carcinoma Hemodialysis Thursday/Thursday/Thursday per nephrology, Dr Ahumada. Urology consulted for right renal mass (previously refused work up) ID: Severe sepsis- resolved [place] Mitral Valve infective endocarditis Source of sepsis: mitral valve endocarditis Antibiotics per ID Dr. Dowd HEME: Anemia of chronic disease No indication for blood transfusion at this time ENDO: Diabetes mellitus, type II med-dose insulin sliding scale q6h PROPH: Heparin 5000 subcutaneous to 12 for DVT prophylaxis-resumed. change to PO pepcid. ACCESS: Right groin central line 09/13/2018-to be discontinued 09/15 piv Critically ill with sepsis, respiratory failure and encephalopathy. multiple ongoing life-threatening organ dysfunctions. Critical care time: 33 minutes, exclusive of separately billable procedures.
[2018-09-16] MEDS: Famotidine 20 MG Tablet PO SCH ×2 (08:41→20:32)
[2018-09-16] MEDS: Senna/Docusate Sodium 8.6/50 MG Tablet PO SCH ×2 (08:41→20:32)
[2018-09-16] MEDS: Acetaminophen 325 MG Tablet PO PRN ×2 (08:44→23:08)
[2018-09-16] MEDS: Insulin NovoLIN Regular Correctional Sugar Inj SQ SCH ×2 (11:21→17:14)
--- NOTE | 2018-09-16 16:54 | P.PNNP ---
Subjective Interval history: patient is intubated. Appears to follow commands. Physical Exam Vital signs: Vital Signs 09/15/18 17:00 09/15/18 17:30 09/15/18 18:00 Temperature Pulse Rate 82 80 82 Respiratory Rate 14 18 20 Blood Pressure 110/65 101/61 111/67 Pulse Oximetry 100 100 100 09/15/18 18:30 09/15/18 19:00 09/15/18 19:30 Temperature Pulse Rate 79 79 84 Respiratory Rate 11 L 9 L 16 Blood Pressure 107/60 99/60 L 124/66 Pulse Oximetry 100 100 100 09/15/18 20:00 09/15/18 20:05 09/15/18 20:30 Temperature 99.1 F Pulse Rate 92 H 83 Respiratory Rate 32 H 19 15 Blood Pressure 131/89 124/67 Pulse Oximetry 100 100 100 09/15/18 21:00 09/15/18 21:30 09/15/18 22:00 Temperature Pulse Rate 83 84 84 Respiratory Rate 15 15 20 Blood Pressure 116/66 124/67 127/69 Pulse Oximetry 100 100 100 09/15/18 22:30 09/15/18 23:00 09/15/18 23:30 Temperature Pulse Rate 84 82 87 Respiratory Rate 15 18 39 H Blood Pressure 124/70 120/65 143/73 H Pulse Oximetry 100 100 100 09/16/18 00:00 09/16/18 00:28 09/16/18 00:30 Temperature 99.1 F Pulse Rate 90 91 H Respiratory Rate 22 21 15 Blood Pressure 137/72 143/74 H Pulse Oximetry 100 100 100 09/16/18 01:00 09/16/18 01:30 09/16/18 02:00 Temperature Pulse Rate 88 87 90 Respiratory Rate 22 23 17 Blood Pressure 144/74 H 137/75 158/77 H Pulse Oximetry 100 100 100 09/16/18 02:30 09/16/18 03:00 09/16/18 03:30 Temperature Pulse Rate 87 87 91 H Respiratory Rate 17 22 19 Blood Pressure 147/77 H 151/78 H 152/80 H Pulse Oximetry 100 100 100 09/16/18 04:00 09/16/18 04:30 09/16/18 04:37 Temperature 99.0 F Pulse Rate 88 87 Respiratory Rate 15 15 15 Blood Pressure 145/75 H 153/77 H Pulse Oximetry 100 100 100 09/16/18 05:00 09/16/18 05:30 09/16/18 05:47 Temperature Pulse Rate 91 H 107 H 92 H Respiratory Rate 18 35 H 26 H Blood Pressure 155/77 H 155/110 H 155/77 H Pulse Oximetry 100 100 100 09/16/18 06:00 09/16/18 06:30 09/16/18 07:00 Temperature Pulse Rate 95 H 84 89 Respiratory Rate 16 9 L 16 Blood Pressure 156/84 H 146/71 H 149/74 H Pulse Oximetry 100 100 100 09/16/18 07:20 09/16/18 07:30 09/16/18 08:00 Temperature 101.5 F H Pulse Rate 93 H 98 H Respiratory Rate 8 L 12 10 L Blood Pressure 144/78 H 131/70 Pulse Oximetry 100 100 09/16/18 10:51 09/16/18 12:00 09/16/18 13:48 Temperature 100.1 F H Pulse Rate 86 Respiratory Rate 13 12 10 L Blood Pressure 108/58 L Pulse Oximetry 100 100 09/16/18 16:00 09/16/18 16:01 Temperature 79 F L Pulse Rate 79 Respiratory Rate 13 12 Blood Pressure 110/62 Pulse Oximetry 100 Intake & Output 09/15/18 09/16/18 09/16/18 18:59 06:59 18:59 Intake Total 492 / 492 1132 / 1132 Output Total 3000 / 3000 3050 / 3050 Balance -2508 / -2508 -8 / -191 Weight 51 kg Intake: Tube Feeding 392 / 392 732 / 732 Water Bolus Amount 100 / 100 150 / 150 Anesthesia Amount 250 / 250 Output: Urine 0 / 0 Stool 0 / 0 Urine/Stool Mix 0 / 0 Hemodialysis Amount 3000 / 3000 3000 / 3000 Estimated Blood Loss 50 / 50 Other: Post Void Residual 0 # Voids 0 # Incontinent Voids 0 # Urine Diapers 0 Date of Last Bowel Movement 09/14/18 09/14/18 09/16/18 # Bowel Movements 0 0 # Incontinent Bowel Movements 0 Narrative: On the vent. Appears to understand verbal questions. Chest: vented breath sounds bilaterally, no rhonchi, no wheezing. Heart: RRR. 3/6 systolic murmur. No edema. s/p left BKA. Chronic ischemia right lower extremity. Assessment and Plan - Assessment (1) ESRD (end stage renal disease) Code(s): N18.6 - End stage renal disease Status: Chronic Plan: Dialysis MWF. If she is NPO, start D10NS at 20 ml/hour for hyperkalemia. K+ stable She is s/p repair/excision of infected pseudoaneurysm of AVF, with apparent interposition bovine graft. Fistula pseudo aneurysm grossly infected. Previous steal history - no apparent signs of steal at this point. Currently with non-tunneled HD catheter, will need to change to tunneled catheter when blood cultures clear. Dialysis tomorrow, remove VasCath tomorrow after dialysis. PermCath on Thursday if cultures are negative. ---- (2) Hyperkalemia Code(s): E87.5 - Hyperkalemia Status: Acute Plan: Improved. She was actually hypokalemic yesterday, on 4K today. Monitor. Repeat labs . (3) Renal mass Code(s): N28.89 - Other specified disorders of kidney and ureter Status: Acute Plan: Renal mass has grown in size, most likely malignancy. Urology note reviewed, to follow up after discharge. (4) Severe sepsis Code(s): A41.9 - Sepsis, unspecified organism; R65.20 - Severe sepsis without septic shock Status: Acute Plan: MRSA sepsis, endocarditis. MRI of the brain negative for septic emboli. She has mitral valve vegetation. On Vancomycin. s/p excision of infected pseudoaneurysm of AVF. (5) CAD (coronary artery disease) Code(s): I25.10 - Atherosclerotic heart disease of [place] coronary artery without angina pectoris Status: Chronic (6) PAD (peripheral artery disease) Code(s): I73.9 - Peripheral vascular disease, unspecified Status: Chronic Plan: s/p left BKA. Poor circulation of right lower extremity. (7) DM2 (diabetes mellitus, type 2) Code(s): E11.9 - Type 2 diabetes mellitus without complications Status: Chronic Plan: maintain blood glucose between 140 and 180 while hospitalized.
--- NOTE | 2018-09-16 18:23 | P.PNVS ---
Subjective Subjective/Hospital Course: intubated, open eyes to stimuli, following commands Doing well on CPAP. Objective Vital Signs / I&O: Vital Signs 09/15/18 18:30 09/15/18 19:00 09/15/18 19:30 Temperature Pulse Rate 79 79 84 Respiratory Rate 11 L 9 L 16 Blood Pressure 107/60 99/60 L 124/66 Pulse Oximetry 100 100 100 09/15/18 20:00 09/15/18 20:05 09/15/18 20:30 Temperature 99.1 F Pulse Rate 92 H 83 Respiratory Rate 32 H 19 15 Blood Pressure 131/89 124/67 Pulse Oximetry 100 100 100 09/15/18 21:00 09/15/18 21:30 09/15/18 22:00 Temperature Pulse Rate 83 84 84 Respiratory Rate 15 15 20 Blood Pressure 116/66 124/67 127/69 Pulse Oximetry 100 100 100 09/15/18 22:30 09/15/18 23:00 09/15/18 23:30 Temperature Pulse Rate 84 82 87 Respiratory Rate 15 18 39 H Blood Pressure 124/70 120/65 143/73 H Pulse Oximetry 100 100 100 09/16/18 00:00 09/16/18 00:28 09/16/18 00:30 Temperature 99.1 F Pulse Rate 90 91 H Respiratory Rate 22 21 15 Blood Pressure 137/72 143/74 H Pulse Oximetry 100 100 100 09/16/18 01:00 09/16/18 01:30 09/16/18 02:00 Temperature Pulse Rate 88 87 90 Respiratory Rate 22 23 17 Blood Pressure 144/74 H 137/75 158/77 H Pulse Oximetry 100 100 100 09/16/18 02:30 09/16/18 03:00 09/16/18 03:30 Temperature Pulse Rate 87 87 91 H Respiratory Rate 17 22 19 Blood Pressure 147/77 H 151/78 H 152/80 H Pulse Oximetry 100 100 100 09/16/18 04:00 09/16/18 04:30 09/16/18 04:37 Temperature 99.0 F Pulse Rate 88 87 Respiratory Rate 15 15 15 Blood Pressure 145/75 H 153/77 H Pulse Oximetry 100 100 100 09/16/18 05:00 09/16/18 05:30 09/16/18 05:47 Temperature Pulse Rate 91 H 107 H 92 H Respiratory Rate 18 35 H 26 H Blood Pressure 155/77 H 155/110 H 155/77 H Pulse Oximetry 100 100 100 09/16/18 06:00 09/16/18 06:30 09/16/18 07:00 Temperature Pulse Rate 95 H 84 89 Respiratory Rate 16 9 L 16 Blood Pressure 156/84 H 146/71 H 149/74 H Pulse Oximetry 100 100 100 09/16/18 07:20 09/16/18 07:30 09/16/18 08:00 Temperature 101.5 F H Pulse Rate 93 H 98 H Respiratory Rate 8 L 12 10 L Blood Pressure 144/78 H 131/70 Pulse Oximetry 100 100 09/16/18 10:51 09/16/18 12:00 09/16/18 13:48 Temperature 100.1 F H Pulse Rate 86 Respiratory Rate 13 12 10 L Blood Pressure 108/58 L Pulse Oximetry 100 100 09/16/18 16:00 09/16/18 16:01 Temperature 79 F L Pulse Rate 79 Respiratory Rate 13 12 Blood Pressure 110/62 Pulse Oximetry 100 Intake & Output 09/15/18 09/16/18 09/16/18 18:59 06:59 18:59 Intake Total 492 / 492 1132 / 1132 Output Total 3000 / 3000 3050 / 3050 Balance -2508 / -2508 -8 / -191 Weight 51 kg Intake: Tube Feeding 392 / 392 732 / 732 Water Bolus Amount 100 / 100 150 / 150 Anesthesia Amount 250 / 250 Output: Urine 0 / 0 Stool 0 / 0 Urine/Stool Mix 0 / 0 Hemodialysis Amount 3000 / 3000 3000 / 3000 Estimated Blood Loss 50 / 50 Other: Post Void Residual 0 # Voids 0 # Incontinent Voids 0 # Urine Diapers 0 Date of Last Bowel Movement 09/14/18 09/14/18 09/16/18 # Bowel Movements 0 0 # Incontinent Bowel Movements 0 Physical Exam: left arm wound healing appropriately BKA stump wound stable. Right few spots with dry gangrene involving the dorsum of the foot. She is able to follow commands in the right lower extremity and able to move her foot. Monophasic right dorsalis pedis signal. Laboratory Results - last 24 hr 09/14/18 09/16/18 09/16/18 12:59 00:22 04:21 Sodium 138 Potassium 3.5 Chloride 95 L Carbon Dioxide 31.6 Anion Gap 11 BUN 30 H Creatinine 3.49 H Estimated GFR 16 L POC Glucose 149 H Random Glucose 186 H Calcium 8.1 L Phosphorus 2.7 Albumin 1.7 L Prealbumin Thiamine ND 09/16/18 09/16/18 09/16/18 04:21 08:41 11:20 Sodium Potassium Chloride Carbon Dioxide Anion Gap BUN Creatinine Estimated GFR POC Glucose 203 H 236 H Random Glucose Calcium Phosphorus Albumin Prealbumin 6 L Thiamine 09/16/18 09/16/18 17:05 17:24 Sodium Potassium Chloride Carbon Dioxide Anion Gap BUN Creatinine Estimated GFR POC Glucose 62 L 215 H Random Glucose Calcium Phosphorus Albumin Prealbumin Thiamine Microbiology 09/09/18 11:20 Fungal Smear - Final Wound - Arm No fungal elements seen Fungal Culture - Preliminary No growth in 1 week 09/09/18 11:20 Acid Fast Bacilli Smear - Final Wound - Arm No acid fast bacilli seen Mycobacterial Culture - Preliminary No growth in 1 week 09/11/18 08:30 Aerobic Blood Culture - Final Blood - Peripheral No growth in 5 days Anaerobic Blood Culture - Final QNS - See aerobic report. 09/11/18 08:39 Aerobic Blood Culture - Final Blood - Peripheral No growth in 5 days Anaerobic Blood Culture - Final No growth in 5 days Assessment and Plan - Assessment (1) Abscess of upper extremity Code(s): L02.419 - Cutaneous abscess of limb, unspecified Status: Acute (2) Toxic metabolic encephalopathy Code(s): G92 - Toxic encephalopathy Status: Acute (3) Severe sepsis Code(s): A41.9 - Sepsis, unspecified organism; R65.20 - Severe sepsis without septic shock Status: Acute (4) PAD (peripheral artery disease) Code(s): I73.9 - Peripheral vascular disease, unspecified Status: Chronic - Plan Left upper extremity abscess, infected hematoma. S/P excision of infected PSA. Right lower extremity peripheral vascular disease Showing signs of critical limb ischemia with no evidence of acute limb ischemia. The patient will require a redo distal bypass to establish flow to the right lower extremity. She is currently not a surgical candidate. She is a high risk of right lower extremity limb loss. LBKA stump will need revision in the future. We will continue to follow
[2018-09-16] MEDS: Morphine Inj 4 MG/ML Vial IV.PUSH PRN (23:22)
[2018-09-17] MEDS: Insulin NovoLIN Regular Correctional Sugar Inj SQ SCH ×4 (00:26→17:44)
--- NOTE | 2018-09-17 06:09 | XR ---
EXAM DATE: 09/17/2018 5:55 AM EDT AGE/SEX: 58 years / Female INDICATIONS: Shortness of breath CLINICAL DATA: This is the patient's subsequent encounter. Patient reports that signs and symptoms h ave been present for 4 - 6 days and indicates a pain score of Nonresponsive. MEDICAL/SURGICAL HISTORY: Diabetes. . AV fistula, left leg amputation, right leg femoral bypass COMPARISON: [facility], CHEST 1V SINGLE AP, 09/13/2018. . FINDINGS: ET tube tip 2 cm above the valeria. Right central line tip projects over the distal superior vena cava . Gastric tube is coiled in the stomach. The lungs are symmetrically aerated. No infiltrates seen. Pr ominence of the central pulmonary vessels bilaterally, similar to prior. The heart is normal size. CONCLUSION: Prominence of the central pulmonary vessels, stable from prior. No parenchymal infiltrates seen. Electronically signed by: Trever Castaneda MD 09/17/2018 6:08 AM EDT
[2018-09-17 06:14] LABS: Hematocrit 30.8 % (35.0-46.0); Hemoglobin 9.9 gm/dL (11.6-15.3); Mean Corpuscular HGB Conc 32.2 % (32.0-36.0); Mean Corpuscular Hemoglobin 26.3 pg (27.0-34.0); Mean Corpuscular Volume 81.6 fL (80.0-100.0); Mean Platelet Volume 10.6 fL (7.0-11.0); Platelet Count 233 th/mm3 (150-450); Red Blood Count 3.77 mil/mm3 (4.00-5.30); White Blood Count 16.2 th/mm3 (4.0-11.0)
[2018-09-17 06:38] LABS: Calcium 8.5 mg/dL (8.5-10.1); Carbon Dioxide 32.5 meq/L (21.0-32.0); Magnesium 2.5 mg/dL (1.5-2.5); Phosphorus 3.5 mg/dL (2.5-4.9); Potassium 3.9 meq/L (3.5-5.1)
[2018-09-17] MEDS: Heparin - SQ 10,000 UNITS/ML Vial SQ SCH ×2 (06:53→17:44)
--- NOTE | 2018-09-17 08:19 | P.PNCC ---
Subjective Subjective Remarks/Hospital Course: No history is obtainable from the patient due to altered mental status. All history obtained from chart review and discussion with ED attending. Patient is a 58-year-old -[place] female with past medical history of type 2 diabetes, hypertension, hyperlipidemia, ESRD on HD M/W/F, CHF Echo 03/22/07 EF 30 -35%, CAD, s/p LAD stent 06/08, status post left BKA. Patient was brought to the emergency department by EMS for altered mental status. Apparently patient was found lying on the floor between 2 dressers, missed two dialysis appointments. CT of the head was negative for acute findings chest x-ray showed pulmonary vascular congestion, left lower lobe atelectasis. CT abdomen pelvis showed large 6.2 cm renal mass which has grown in size since last scan in Nov 2017, and suspicious for renal cell carcinoma. Her WBC count was 23.4 with left shift, with altered mental status this was most likely secondary to severe sepsis. Patient was empirically given vancomycin and Zosyn in the ED after getting blood cultures. Also her potassium was 6.3 patient is receiving bicarb now and nephrology had been contacted for stat dialysis I evaluated the patient in the emergency department. Patient is very lethargic encephalopathic. She mumbles a few words but did not follow commands. Even though very lethargic at this point she is protecting airway. In addition to IV bicarb I will also give 5 units of insulin and IV dextrose. Antibiotics will be continued-renally dosed vancomycin and Zosyn. Will request nephrology and urology consult. At this time critically ill with severe sepsis. SUBJ 09/07: Patient is lying in bed mental status seems to be improved alert oriented x2 today. Potassium is 5.3 chest x-ray shows pulmonary edema. Will request for repeat hemodialysis today 09/13: Rapid response team activated for patient hypotension and hypoxemia. After transfer to ICU I have found patient in agonal breathing and immediately intubated her with 7.5 ET tube. Shortly after intubation the patient was pulseless and 1 cycle of CPR was performed including one injection of epinephrine, chest compressions, and sodium bicarbonate injections. Family notified about the critical condition. 09/14: Remains encephalopathic, orally intubated on mechanical ventilation. 09/15: More awake, opening eyes, squeezing my fingers with her hands on command. Remains orally intubated on mechanical ventilation. 09/16: clinically improving. following commands. on PSV 15/5/40%. HD yesterday with good volume removal. 09/17: still failing SBTs- going apneic into back-up mode. will attempt again today. likely will need HD again today. still following commands. Objective Vital Signs / I&O: Vital Signs 09/16/18 10:51 09/16/18 12:00 09/16/18 13:48 Temperature 37.8 C H Pulse Rate 86 Respiratory Rate 13 12 10 L Blood Pressure 108/58 L Pulse Oximetry 100 100 09/16/18 16:00 09/16/18 16:01 09/16/18 19:07 Temperature 26.1 C L Pulse Rate 79 Respiratory Rate 13 12 15 Blood Pressure 110/62 Pulse Oximetry 100 100 09/16/18 20:00 09/16/18 23:27 09/16/18 23:37 Temperature 37.7 C H Pulse Rate 76 Respiratory Rate 16 14 22 Blood Pressure 103/60 Pulse Oximetry 100 09/16/18 23:48 09/17/18 00:00 09/17/18 03:51 Temperature 38.6 C H Pulse Rate 84 Respiratory Rate 18 15 15 Blood Pressure 137/71 Pulse Oximetry 100 09/17/18 04:00 09/17/18 07:09 09/17/18 07:39 Temperature 37.2 C Pulse Rate 84 Respiratory Rate 15 7 L Blood Pressure 138/73 Pulse Oximetry 100 100 Intake & Output 09/16/18 09/17/18 09/17/18 18:59 06:59 18:59 Intake Total 510 / 510 358 / 358 Output Total 3050 / 3050 0 / 0 Balance -2540 / -2540 358 / 358 Weight 51 kg Intake: Tube Feeding 410 / 410 358 / 358 Water Bolus Amount 100 / 100 Output: Urine 0 / 0 0 / 0 Stool 0 / 0 0 / 0 Urine/Stool Mix 0 / 0 0 / 0 Hemodialysis Amount 3000 / 3000 Estimated Blood Loss 50 / 50 Other: Post Void Residual 0 0 # Voids 0 0 # Incontinent Voids 0 0 # Urine Diapers 0 0 Date of Last Bowel Movement 09/14/18 09/14/18 # Bowel Movements 0 1 # Incontinent Bowel Movements 0 0 Result Diagrams: 09/17/18 04:59 09/17/18 04:59 Objective Remarks: GENERAL: 58-year-old AA female, lying in bed intubated. SKIN: Warm and dry. HEAD: Atraumatic. Normocephalic. EYES: Pupils equal and round, 2 mm reactive. No scleral icterus. ENT: No nasal bleeding or discharge. Mucous membranes moist NECK: Trachea midline. No JVD. CARDIOVASCULAR: RRR. sinus. RESPIRATORY: On mechanical ventilation, equal chest rise. PSV 15/5/40% GASTROINTESTINAL: Abdomen soft, non-tender, nondistended. MUSCULOSKELETAL: AV fistula in left upper arm with palpable thrill. s/p L BKA NEUROLOGICAL: awake, alert, follows commands. RASS 0. Assessment and Plan - Problem List (1) Toxic metabolic encephalopathy Code(s): G92 - Toxic encephalopathy Status: Acute (2) Severe sepsis Code(s): A41.9 - Sepsis, unspecified organism; R65.20 - Severe sepsis without septic shock Status: Acute (3) Altered mental status Code(s): R41.82 - Altered mental status, unspecified Status: Acute (4) Hyperkalemia Code(s): E87.5 - Hyperkalemia Status: Acute (5) ESRD (end stage renal disease) Code(s): N18.6 - End stage renal disease Status: Chronic (6) CAD (coronary artery disease) Code(s): I25.10 - Atherosclerotic heart disease of [place] coronary artery without angina pectoris Status: Chronic (7) PAD (peripheral artery disease) Code(s): I73.9 - Peripheral vascular disease, unspecified Status: Chronic (8) DM2 (diabetes mellitus, type 2) Code(s): E11.9 - Type 2 diabetes mellitus without complications Status: Chronic (9) Hypertension Code(s): I10 - Essential (primary) hypertension Status: Chronic (10) Ischemic cardiomyopathy Code(s): I25.5 - Ischemic cardiomyopathy Status: Chronic - Assessment and Plan Plan: Assessment: 58yF with ESRD, 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 remains critically ill. From an endocarditis standpoint, does not meet criteria at this time for early valve replacement, and overall is a very poor open cardiac surgery candidate given comorbid conditions. However, may require valve replacement in the future. will hold off on CT surgery consult at this time given multiple active problems. will work towards weaning mechanical ventilation today and ongoing volume removal with IHD. NEURO: Toxic metabolic encephalopathy- improving. History of peripheral neuropathy History of glaucoma Avoid any sedating medication CT head negative for bleed. Encephalopathy most likely from metabolic causes/sepsis. EEG generalized slowing 09/15 MRI brain 09/15 no acute disease. Neurology following RESP: Acute hypoxic and hypercarbic Respiratory failure Pulmonary edema DuoNeb every 6 hours scheduled and as needed Continue mechanical ventilation continue SBTs today wean fio2 for goal spo2 > 90% vent bundle, hob elevated, nebs CV: Coronary artery disease with prior stents (LAD stent 06/08) Chronic systolic heart failure ejection fraction 30-35% 2016 Severe TR Severe mitral regurgitation [place] mitral valve infective endocarditis s/p L BKA s/p R iliofemoral bypass and R fem-pop bypass by Dr. Ramirez 11/26/17 Peripheral arterial disease Hypertension, dyslipidemia Continue baby aspirin severe MR continues to require volume removal. HD per nephrology. GI: Acute protein calorie malnutrition- severe change to PO pepcid Tolerating Nepro tube feeds. Prealbumin 6. very cachectic. will ask nutrition to weigh in on any efforts we can make to improve severe malnutrition. FEN/RENAL: ESRD Large right renal mass suspicious for renal cell carcinoma Hemodialysis Thursday/Thursday/Thursday per nephrology, Dr Ahumada. Urology consulted for right renal mass (previously refused work up) ID: Severe sepsis- resolved [place] Mitral Valve infective endocarditis Source of sepsis: mitral valve endocarditis Antibiotics per ID Dr. Dowd HEME: Anemia of chronic disease No indication for blood transfusion at this time ENDO: Diabetes mellitus, type II med-dose insulin sliding scale q6h PROPH: Heparin 5000 subcutaneous to 12 for DVT prophylaxis. PO pepcid. ACCESS: Right groin central line 09/13/2018-to be discontinued 09/15 piv Critically ill with sepsis, respiratory failure and encephalopathy. multiple ongoing life-threatening organ dysfunctions.
[2018-09-17] MEDS: Heparin 10,000 UNITS/10 ML Vial (for IV use) OTHER PRN (09:45)
[2018-09-17] MEDS: Vancomycin Inj 1,250 MG in Sodium Chlor 0.9% Inj 250 ML IV.SIG SCH (10:41)
[2018-09-17] MEDS: Senna/Docusate Sodium 8.6/50 MG Tablet PO SCH ×2 (12:25→20:09)
[2018-09-17] MEDS: Famotidine 20 MG Tablet PO SCH ×2 (12:25→20:09)
--- NOTE | 2018-09-17 16:13 | P.PNNP ---
Subjective Interval history: patient remains intubated, poorly responsive. Dialysis today, 3 liters in UF. Physical Exam Vital signs: Vital Signs 09/16/18 19:07 09/16/18 20:00 09/16/18 23:27 Temperature 100 F H Pulse Rate 76 Respiratory Rate 15 16 14 Blood Pressure 103/60 Pulse Oximetry 100 09/16/18 23:37 09/16/18 23:48 09/17/18 00:00 Temperature 101.4 F H Pulse Rate 84 Respiratory Rate 22 18 15 Blood Pressure 137/71 Pulse Oximetry 100 09/17/18 02:00 09/17/18 02:30 09/17/18 03:00 Temperature Pulse Rate 91 H 94 H 87 Respiratory Rate 16 15 15 Blood Pressure 156/79 H 144/72 H 151/72 H Pulse Oximetry 100 100 100 09/17/18 03:30 09/17/18 03:51 09/17/18 04:00 Temperature 99 F Pulse Rate 84 84 Respiratory Rate 15 15 15 Blood Pressure 148/76 H 138/73 Pulse Oximetry 100 100 100 09/17/18 04:30 09/17/18 05:00 09/17/18 05:30 Temperature Pulse Rate 84 86 85 Respiratory Rate 15 15 17 Blood Pressure 149/76 H 165/76 H 148/75 H Pulse Oximetry 100 100 100 09/17/18 06:00 09/17/18 06:30 09/17/18 07:00 Temperature Pulse Rate 82 80 77 Respiratory Rate 15 15 15 Blood Pressure 136/69 139/67 137/67 Pulse Oximetry 100 100 100 09/17/18 07:09 09/17/18 07:30 09/17/18 07:39 Temperature 98 F Pulse Rate 80 Respiratory Rate 7 L 11 L Blood Pressure 133/70 Pulse Oximetry 100 100 100 09/17/18 08:00 09/17/18 08:30 09/17/18 08:45 Temperature Pulse Rate 77 74 75 Respiratory Rate 15 15 19 Blood Pressure 117/63 122/73 126/64 Pulse Oximetry 100 100 100 09/17/18 09:00 09/17/18 09:15 09/17/18 09:30 Temperature Pulse Rate 77 78 76 Respiratory Rate 15 15 15 Blood Pressure 133/69 130/68 132/69 Pulse Oximetry 100 100 100 09/17/18 09:45 09/17/18 10:00 09/17/18 10:09 Temperature Pulse Rate 76 77 Respiratory Rate 15 15 15 Blood Pressure 119/64 117/62 Pulse Oximetry 100 100 100 09/17/18 10:15 09/17/18 10:30 09/17/18 10:45 Temperature Pulse Rate 79 81 84 Respiratory Rate 15 18 17 Blood Pressure 118/65 123/64 122/69 Pulse Oximetry 100 100 100 09/17/18 11:00 09/17/18 11:15 09/17/18 11:30 Temperature Pulse Rate 86 84 85 Respiratory Rate 16 15 17 Blood Pressure 119/69 132/66 124/67 Pulse Oximetry 100 100 100 09/17/18 11:45 09/17/18 12:00 09/17/18 12:15 Temperature 99 F Pulse Rate 86 83 83 Respiratory Rate 16 15 21 Blood Pressure 122/73 123/71 136/68 Pulse Oximetry 100 100 100 09/17/18 12:52 Temperature Pulse Rate Respiratory Rate 15 Blood Pressure Pulse Oximetry 100 Intake & Output 09/16/18 09/17/18 09/17/18 18:59 06:59 18:59 Intake Total 510 / 510 358 / 358 262.5 / 262.5 Output Total 3050 / 3050 0 / 0 3000 / 3000 Balance -2540 / -2540 358 / 358 -2737.5 / -2737.5 Weight 51 kg Intake: IV 262.5 / 262.5 Vancomycin Inj 1,250 MG In NS 262.5 / 262.5 Inj 250 ML @ 250 mls/hr IV.SIG WITH [facility] Rx#:[id number] Tube Feeding 410 / 410 358 / 358 Water Bolus Amount 100 / 100 Output: Urine 0 / 0 0 / 0 Stool 0 / 0 0 / 0 Urine/Stool Mix 0 / 0 0 / 0 Hemodialysis Amount 3000 / 3000 3000 / 3000 Estimated Blood Loss 50 / 50 Other: Post Void Residual 0 0 # Voids 0 0 # Incontinent Voids 0 0 # Urine Diapers 0 0 Date of Last Bowel Movement 09/14/18 09/14/18 # Bowel Movements 0 1 # Incontinent Bowel Movements 0 0 Narrative: On the vent. Poorly responsive. Chest: vented breath sounds bilaterally, no rhonchi, no wheezing. Heart: RRR. 3/6 systolic murmur. No edema. s/p left BKA. Chronic ischemia right lower extremity. Assessment and Plan - Assessment (1) ESRD (end stage renal disease) Code(s): N18.6 - End stage renal disease Status: Chronic Plan: Dialysis MWF. Dialyzed today. K+ stable She is s/p repair/excision of infected pseudoaneurysm of AVF, with apparent interposition bovine graft. Fistula pseudo aneurysm grossly infected. Previous steal history - no apparent signs of steal at this point. Currently with non-tunneled HD catheter, will need to change to tunneled catheter when blood cultures clear. Dialysis tomorrow, remove VasCath tomorrow after dialysis. PermCath on Thursday if cultures are negative. ---- (2) Hyperkalemia Code(s): E87.5 - Hyperkalemia Status: Acute Plan: Improved. . (3) Renal mass Code(s): N28.89 - Other specified disorders of kidney and ureter Status: Acute Plan: Renal mass has grown in size, most likely malignancy. Urology note reviewed, to follow up after discharge. (4) Severe sepsis Code(s): A41.9 - Sepsis, unspecified organism; R65.20 - Severe sepsis without septic shock Status: Acute Plan: MRSA sepsis, endocarditis. MRI of the brain negative for septic emboli. She has mitral valve vegetation. On Vancomycin. s/p excision of infected pseudoaneurysm of AVF. (5) CAD (coronary artery disease) Code(s): I25.10 - Atherosclerotic heart disease of [place] coronary artery without angina pectoris Status: Chronic (6) PAD (peripheral artery disease) Code(s): I73.9 - Peripheral vascular disease, unspecified Status: Chronic Plan: s/p left BKA. Poor circulation of right lower extremity. Vascular surgery following. (7) DM2 (diabetes mellitus, type 2) Code(s): E11.9 - Type 2 diabetes mellitus without complications Status: Chronic Plan: maintain blood glucose between 140 and 180 while hospitalized. - Attending Attestation Very poor prognosis.
--- NOTE | 2018-09-17 16:28 | P.DIET ---
Nutritional Evaluation Type of nutrition evaluation: follow-up Nutrition consult regarding: Tube Feeding Nutrition screening: [facility] [place] Objective - Diagnosis hyperkalemia, fluid overload - Objective Part of Body Amputated: Left below knee (6%) (Adjusted IBW for LBKA = 94-lb( 42.7kg)) % IBW: 119 Body Weight Used for Calculations: Actual (51kg) Energy Needs - Lower Range (kCal/kg): 30 Energy Needs - Upper Range (kCal/kg): 35 Lower Limit kCal/kg (kCals): 1,530 Upper Limit kCal/kg (kCals): 1,785 Lower Limit Protein Factor (Grams per Kg): 1.2 Upper Limit Protein Factor (Grams per Kg): 1.5 Lower Protein Needs (Protein): 61 Upper Protein Needs (Protein): 77 Dietitian Reviewed in Medical Record: Curent medications, Intake & Output, Labs , Medical history, Tube feeding Diet Order: TF'ing ONLY: Nepro @ 35ml/hr Objective Comments: PMH includes: A-V Fistula, ESRD on HD , DM, CHF EF 30-35, Gangrene, MDRO, CAD s/p LAD stent 06/08, LBKA Labs Include: BUN 43, Creatinine 4.39, estGFR 13, Random glucose 197, POC 195 164 LBM 09/14 Assessment Assessment: Labs reviewed - noted concern for pre-alb, however alb and pre-alb are negative acute-phase proteins and reflect severity of the inflammatory process vs. nutritional status. [facility] [place]. Pt currently on TF: Nepro @ 35mL/hr and tolerating well. Pt continues to be on mech vent, starting to wean per MD note. Pt's nutritional needs updated to reflect severe malnutrition, rec Nepro goal rate @ 40mL/hr to offer 1728 kcal, 78g protein, and 698 free water. Labs reviewed- monitor renal labs and glucose. Additional Recs to follow r/t Clinical Course. Recommendations: 1. To best meet pt's assessed needs for TF'ing w/Nepro, Rec a goal rate @ 40ml/ hr 2. Additional Recs to follow r/t Clinical Course Dietitian to Monitor: Lab values, Renal labs, Glucose level, Intake & Output, Tube feeding tolerance, Weight change, Residuals, Medical course
[2018-09-17] MEDS: Morphine Inj 4 MG/ML Vial IV.PUSH PRN (17:43)
--- NOTE | 2018-09-17 18:13 | P.PNVS ---
Subjective Subjective/Hospital Course: intubated, open eyes to stimuli, following commands Objective Vital Signs / I&O: Vital Signs 09/16/18 19:07 09/16/18 20:00 09/16/18 23:27 Temperature 100 F H Pulse Rate 76 Respiratory Rate 15 16 14 Blood Pressure 103/60 Pulse Oximetry 100 09/16/18 23:37 09/16/18 23:48 09/17/18 00:00 Temperature 101.4 F H Pulse Rate 84 Respiratory Rate 22 18 15 Blood Pressure 137/71 Pulse Oximetry 100 09/17/18 02:00 09/17/18 02:30 09/17/18 03:00 Temperature Pulse Rate 91 H 94 H 87 Respiratory Rate 16 15 15 Blood Pressure 156/79 H 144/72 H 151/72 H Pulse Oximetry 100 100 100 09/17/18 03:30 09/17/18 03:51 09/17/18 04:00 Temperature 99 F Pulse Rate 84 84 Respiratory Rate 15 15 15 Blood Pressure 148/76 H 138/73 Pulse Oximetry 100 100 100 09/17/18 04:30 09/17/18 05:00 09/17/18 05:30 Temperature Pulse Rate 84 86 85 Respiratory Rate 15 15 17 Blood Pressure 149/76 H 165/76 H 148/75 H Pulse Oximetry 100 100 100 09/17/18 06:00 09/17/18 06:30 09/17/18 07:00 Temperature Pulse Rate 82 80 77 Respiratory Rate 15 15 15 Blood Pressure 136/69 139/67 137/67 Pulse Oximetry 100 100 100 09/17/18 07:09 09/17/18 07:30 09/17/18 07:39 Temperature 98 F Pulse Rate 80 Respiratory Rate 7 L 11 L Blood Pressure 133/70 Pulse Oximetry 100 100 100 09/17/18 08:00 09/17/18 08:30 09/17/18 08:45 Temperature Pulse Rate 77 74 75 Respiratory Rate 15 15 19 Blood Pressure 117/63 122/73 126/64 Pulse Oximetry 100 100 100 09/17/18 09:00 09/17/18 09:15 09/17/18 09:30 Temperature Pulse Rate 77 78 76 Respiratory Rate 15 15 15 Blood Pressure 133/69 130/68 132/69 Pulse Oximetry 100 100 100 09/17/18 09:45 09/17/18 10:00 09/17/18 10:09 Temperature Pulse Rate 76 77 Respiratory Rate 15 15 15 Blood Pressure 119/64 117/62 Pulse Oximetry 100 100 100 09/17/18 10:15 09/17/18 10:30 09/17/18 10:45 Temperature Pulse Rate 79 81 84 Respiratory Rate 15 18 17 Blood Pressure 118/65 123/64 122/69 Pulse Oximetry 100 100 100 09/17/18 11:00 09/17/18 11:15 09/17/18 11:30 Temperature Pulse Rate 86 84 85 Respiratory Rate 16 15 17 Blood Pressure 119/69 132/66 124/67 Pulse Oximetry 100 100 100 09/17/18 11:45 09/17/18 12:00 09/17/18 12:15 Temperature 99 F Pulse Rate 86 83 83 Respiratory Rate 16 15 21 Blood Pressure 122/73 123/71 136/68 Pulse Oximetry 100 100 100 09/17/18 12:30 09/17/18 12:45 09/17/18 12:52 Temperature Pulse Rate 80 79 Respiratory Rate 22 15 15 Blood Pressure 133/67 122/57 L Pulse Oximetry 100 100 100 09/17/18 13:00 09/17/18 13:15 09/17/18 13:30 Temperature Pulse Rate 79 84 80 Respiratory Rate 15 15 15 Blood Pressure 119/55 L 140/67 111/56 L Pulse Oximetry 100 100 100 09/17/18 13:45 09/17/18 14:00 09/17/18 14:15 Temperature Pulse Rate 80 79 81 Respiratory Rate 15 15 15 Blood Pressure 109/61 98/58 L 102/60 Pulse Oximetry 100 100 100 09/17/18 14:30 09/17/18 14:45 09/17/18 15:00 Temperature Pulse Rate 79 79 79 Respiratory Rate 15 15 15 Blood Pressure 109/70 102/61 100/57 L Pulse Oximetry 100 100 100 09/17/18 15:15 09/17/18 15:30 09/17/18 15:45 Temperature Pulse Rate 77 80 79 Respiratory Rate 15 15 15 Blood Pressure 107/58 L 103/62 102/55 L Pulse Oximetry 100 100 100 09/17/18 16:00 09/17/18 16:15 09/17/18 16:30 Temperature Pulse Rate 78 77 77 Respiratory Rate 15 15 15 Blood Pressure 99/57 L 97/55 L 101/59 L Pulse Oximetry 100 100 100 10/26/18 16:45 09/17/18 17:23 Temperature Pulse Rate 78 Respiratory Rate 15 17 Blood Pressure 107/56 L Pulse Oximetry 100 100 Intake & Output 09/16/18 09/17/18 09/17/18 18:59 06:59 18:59 Intake Total 510 / 510 358 / 358 262.5 / 262.5 Output Total 3050 / 3050 0 / 0 3000 / 3000 Balance -2540 / -2540 358 / 358 -2737.5 / -2737.5 Weight 51 kg Intake: IV 262.5 / 262.5 Vancomycin Inj 1,250 MG In NS 262.5 / 262.5 Inj 250 ML @ 250 mls/hr IV.SIG WITH DIALYSIS [facility] Rx#:[id number] Tube Feeding 410 / 410 358 / 358 Water Bolus Amount 100 / 100 Output: Urine 0 / 0 0 / 0 Stool 0 / 0 0 / 0 Urine/Stool Mix 0 / 0 0 / 0 Hemodialysis Amount 3000 / 3000 3000 / 3000 Estimated Blood Loss 50 / 50 Other: Post Void Residual 0 0 # Voids 0 0 # Incontinent Voids 0 0 # Urine Diapers 0 0 Date of Last Bowel Movement 09/14/18 09/14/18 # Bowel Movements 0 1 # Incontinent Bowel Movements 0 0 Physical Exam: RLE with dry gangerene of the 5th toe Ischemic changes noted in the planter aspect of the right foot no DP or pt signals Laboratory Results - last 24 hr 09/14/18 09/16/18 09/17/18 12:59 23:15 04:59 WBC 16.2 H RBC 3.77 L Hgb 9.9 L Hct 30.8 L MCV 81.6 MCH 26.3 L MCHC 32.2 RDW 19.0 H Plt Count 233 MPV 10.6 Sodium Potassium Chloride Carbon Dioxide Anion Gap BUN Creatinine Estimated GFR POC Glucose 163 H Random Glucose Calcium Phosphorus Magnesium Vitamin B6 3.5 09/17/18 09/17/18 09/17/18 04:59 06:34 12:25 WBC RBC Hgb Hct MCV MCH MCHC RDW Plt Count MPV Sodium 139 Potassium 3.9 Chloride 95 L Carbon Dioxide 32.5 H Anion Gap 12 BUN 43 H Creatinine 4.39 H Estimated GFR 13 L POC Glucose 195 H 164 H Random Glucose 177 H Calcium 8.5 Phosphorus 3.5 Magnesium 2.5 Vitamin B6 09/17/18 17:20 WBC RBC Hgb Hct MCV MCH MCHC RDW Plt Count MPV Sodium Potassium Chloride Carbon Dioxide Anion Gap BUN Creatinine Estimated GFR POC Glucose 166 H Random Glucose Calcium Phosphorus Magnesium Vitamin B6 Microbiology 09/09/18 11:20 Fungal Smear - Final Wound - Arm No fungal elements seen Fungal Culture - Preliminary No growth in 1 week 09/09/18 11:20 Acid Fast Bacilli Smear - Final Wound - Arm No acid fast bacilli seen Mycobacterial Culture - Preliminary No growth in 1 week Impressions Chest X-Ray 09/17/18 05:00 CONCLUSION: Prominence of the central pulmonary vessels, stable from prior. No parenchymal infiltrates seen. Assessment and Plan - Assessment (1) Abscess of upper extremity Code(s): L02.419 - Cutaneous abscess of limb, unspecified Status: Acute (2) Toxic metabolic encephalopathy Code(s): G92 - Toxic encephalopathy Status: Acute (3) Severe sepsis Code(s): A41.9 - Sepsis, unspecified organism; R65.20 - Severe sepsis without septic shock Status: Acute (4) PAD (peripheral artery disease) Code(s): I73.9 - Peripheral vascular disease, unspecified Status: Chronic - Plan Left upper extremity abscess, infected hematoma. S/P excision of infected PSA. Right lower extremity peripheral vascular disease RLE ischemia is progressing since previous exam limited revascularization options in a very high risk patient. She most likely will need a R AKA LBKA stump will need revision in the future. This patient has a very poor outcome and palliative care should be considered
--- NOTE | 2018-09-17 18:32 | P.PNID ---
Subjective Remarks: last set of BC NGTD - final improved neurologically, fully alert follows commands with all 4 2 D echo with MV vegetation afebrile Antibiotics: vancomycin Allergies/Adverse Reactions: Allergies latex Allergy (Severe, Unverified 09/06/18 11:19) Edema RASH Objective Vital Signs 09/16/18 19:07 09/16/18 20:00 09/16/18 23:27 Temperature 100 F H Pulse Rate 76 Respiratory Rate 15 16 14 Blood Pressure 103/60 Pulse Oximetry 100 09/16/18 23:37 09/16/18 23:48 09/17/18 00:00 Temperature 101.4 F H Pulse Rate 84 Respiratory Rate 22 18 15 Blood Pressure 137/71 Pulse Oximetry 100 09/17/18 02:00 09/17/18 02:30 09/17/18 03:00 Temperature Pulse Rate 91 H 94 H 87 Respiratory Rate 16 15 15 Blood Pressure 156/79 H 144/72 H 151/72 H Pulse Oximetry 100 100 100 09/17/18 03:30 09/17/18 03:51 09/17/18 04:00 Temperature 99 F Pulse Rate 84 84 Respiratory Rate 15 15 15 Blood Pressure 148/76 H 138/73 Pulse Oximetry 100 100 100 09/17/18 04:30 09/17/18 05:00 09/17/18 05:30 Temperature Pulse Rate 84 86 85 Respiratory Rate 15 15 17 Blood Pressure 149/76 H 165/76 H 148/75 H Pulse Oximetry 100 100 100 09/17/18 06:00 09/17/18 06:30 09/17/18 07:00 Temperature Pulse Rate 82 80 77 Respiratory Rate 15 15 15 Blood Pressure 136/69 139/67 137/67 Pulse Oximetry 100 100 100 09/17/18 07:09 09/17/18 07:30 09/17/18 07:39 Temperature 98 F Pulse Rate 80 Respiratory Rate 7 L 11 L Blood Pressure 133/70 Pulse Oximetry 100 100 100 09/17/18 08:00 09/17/18 08:30 09/17/18 08:45 Temperature Pulse Rate 77 74 75 Respiratory Rate 15 15 19 Blood Pressure 117/63 122/73 126/64 Pulse Oximetry 100 100 100 09/17/18 09:00 09/17/18 09:15 09/17/18 09:30 Temperature Pulse Rate 77 78 76 Respiratory Rate 15 15 15 Blood Pressure 133/69 130/68 132/69 Pulse Oximetry 100 100 100 09/17/18 09:45 09/17/18 10:00 09/17/18 10:09 Temperature Pulse Rate 76 77 Respiratory Rate 15 15 15 Blood Pressure 119/64 117/62 Pulse Oximetry 100 100 100 09/17/18 10:15 09/17/18 10:30 09/17/18 10:45 Temperature Pulse Rate 79 81 84 Respiratory Rate 15 18 17 Blood Pressure 118/65 123/64 122/69 Pulse Oximetry 100 100 100 09/17/18 11:00 09/17/18 11:15 09/17/18 11:30 Temperature Pulse Rate 86 84 85 Respiratory Rate 16 15 17 Blood Pressure 119/69 132/66 124/67 Pulse Oximetry 100 100 100 09/17/18 11:45 09/17/18 12:00 09/17/18 12:15 Temperature 99 F Pulse Rate 86 83 83 Respiratory Rate 16 15 21 Blood Pressure 122/73 123/71 136/68 Pulse Oximetry 100 100 100 09/17/18 12:30 09/17/18 12:45 09/17/18 12:52 Temperature Pulse Rate 80 79 Respiratory Rate 22 15 15 Blood Pressure 133/67 122/57 L Pulse Oximetry 100 100 100 09/17/18 13:00 09/17/18 13:15 09/17/18 13:30 Temperature Pulse Rate 79 84 80 Respiratory Rate 15 15 15 Blood Pressure 119/55 L 140/67 111/56 L Pulse Oximetry 100 100 100 09/17/18 13:45 09/17/18 14:00 09/17/18 14:15 Temperature Pulse Rate 80 79 81 Respiratory Rate 15 15 15 Blood Pressure 109/61 98/58 L 102/60 Pulse Oximetry 100 100 100 09/17/18 14:30 09/17/18 14:45 09/17/18 15:00 Temperature Pulse Rate 79 79 79 Respiratory Rate 15 15 15 Blood Pressure 109/70 102/61 100/57 L Pulse Oximetry 100 100 100 09/17/18 15:15 09/17/18 15:30 09/17/18 15:45 Temperature Pulse Rate 77 80 79 Respiratory Rate 15 15 15 Blood Pressure 107/58 L 103/62 102/55 L Pulse Oximetry 100 100 100 09/17/18 16:00 09/17/18 16:15 09/17/18 16:30 Temperature Pulse Rate 78 77 77 Respiratory Rate 15 15 15 Blood Pressure 99/57 L 97/55 L 101/59 L Pulse Oximetry 100 100 100 09/17/18 16:45 09/17/18 17:23 Temperature Pulse Rate 78 Respiratory Rate 15 17 Blood Pressure 107/56 L Pulse Oximetry 100 100 Intake & Output 09/16/18 09/17/18 09/17/18 18:59 06:59 18:59 Intake Total 510 / 510 358 / 358 814.5 / 814.5 Output Total 3050 / 3050 0 / 0 3000 / 3000 Balance -2540 / -2540 358 / 358 -2185.5 / -2185.5 Weight 51 kg Intake: IV 262.5 / 262.5 Vancomycin Inj 1,250 MG In NS 262.5 / 262.5 Inj 250 ML @ 250 mls/hr IV.SIG WITH DIALYSIS [facility] Rx#:[id number] Tube Feeding 410 / 410 358 / 358 372 / 372 Tube Irrigant 180 / 180 Water Bolus Amount 100 / 100 Output: Urine 0 / 0 0 / 0 0 / 0 Stool 0 / 0 0 / 0 Urine/Stool Mix 0 / 0 0 / 0 Hemodialysis Amount 3000 / 3000 3000 / 3000 Estimated Blood Loss 50 / 50 Other: Post Void Residual 0 0 # Voids 0 0 # Incontinent Voids 0 0 # Urine Diapers 0 0 Date of Last Bowel Movement 09/14/18 09/14/18 09/17/18 # Bowel Movements 0 1 1 # Incontinent Bowel Movements 0 0 09/09/18 11:20 Wound - Arm Fungal Smear - Final No fungal elements seen 09/09/18 11:20 Wound - Arm Fungal Culture - Preliminary No growth in 1 week 09/09/18 11:20 Wound - Arm Acid Fast Bacilli Smear - Final No acid fast bacilli seen 09/09/18 11:20 Wound - Arm Mycobacterial Culture - Preliminary No growth in 1 week 09/11/18 08:30 Blood - Peripheral Aerobic Blood Culture - Final No growth in 5 days 09/11/18 08:30 Blood - Peripheral Anaerobic Blood Culture - Final QNS - See aerobic report. 09/11/18 08:39 Blood - Peripheral Aerobic Blood Culture - Final No growth in 5 days 09/11/18 08:39 Blood - Peripheral Anaerobic Blood Culture - Final No growth in 5 days Lab - Hematology Results 09/17/18 04:59 WBC 16.2 H RBC 3.77 L Hgb 9.9 L Hct 30.8 L MCV 81.6 MCH 26.3 L MCHC 32.2 RDW 19.0 H Plt Count 233 MPV 10.6 Lab - Chemistry Results 09/14/18 09/16/18 09/16/18 12:59 00:22 04:21 Sodium 138 Potassium 3.5 Chloride 95 L Carbon Dioxide 31.6 Anion Gap 11 BUN 30 H Creatinine 3.49 H Estimated GFR 16 L POC Glucose 149 H Random Glucose 186 H Calcium 8.1 L Phosphorus 2.7 Magnesium Albumin 1.7 L Prealbumin Thiamine ND Vitamin B6 3.5 09/16/18 09/16/18 09/16/18 04:21 08:41 11:20 Sodium Potassium Chloride Carbon Dioxide Anion Gap BUN Creatinine Estimated GFR POC Glucose 203 H 236 H Random Glucose Calcium Phosphorus Magnesium Albumin Prealbumin 6 L Thiamine Vitamin B6 09/16/18 09/16/18 09/16/18 17:05 17:24 23:15 Sodium Potassium Chloride Carbon Dioxide Anion Gap BUN Creatinine Estimated GFR POC Glucose 62 L 215 H 163 H Random Glucose Calcium Phosphorus Magnesium Albumin Prealbumin Thiamine Vitamin B6 09/17/18 09/17/18 09/17/18 04:59 06:34 12:25 Sodium 139 Potassium 3.9 Chloride 95 L Carbon Dioxide 32.5 H Anion Gap 12 BUN 43 H Creatinine 4.39 H Estimated GFR 13 L POC Glucose 195 H 164 H Random Glucose 177 H Calcium 8.5 Phosphorus 3.5 Magnesium 2.5 Albumin Prealbumin Thiamine Vitamin B6 09/17/18 17:20 Sodium Potassium Chloride Carbon Dioxide Anion Gap BUN Creatinine Estimated GFR POC Glucose 166 H Random Glucose Calcium Phosphorus Magnesium Albumin Prealbumin Thiamine Vitamin B6 Imaging: ITS Impressions Abdomen/Pelvis CT 09/06/18 11:10 CONCLUSION: 1. Moderate stool in the rectum. No dilated loops of bowel to suggest obstruction. 2. Persistent large solid mass arising from the superior pole the right kidney measuring up to 6.2 cm. This is a renal cell carcinoma until proven otherwise. 3. End-stage appearing kidneys bilaterally. 4. Prominent diffuse vascular calcifications. Upper Extremity Ultrasound 09/09/18 00:00 CONCLUSION: Mixed echogenicity collection around the proximal fistula outflow in the medial left upper arm. Arterial Ultrasound 09/10/18 00:00 CONCLUSION: 1. Right iliofemoral and femoral popliteal bypass grafts appear to be occluded. 2. Occlusion of the [place] superficial femoral and popliteal arteries. Proximal trifurcation vessels also appear to be occluded. 3. Monophasic signal in the right external iliac, common femoral and profunda femoral arteries. 4. CTA abdomen and runoff could be performed for anatomic characterization if clinically warranted. Catheter Placement 09/10/18 00:00 CONCLUSION: 1. Uncomplicated line placement as above. The patient has an occluded right internal jugular vein. This catheter was placed in the external jugular vein. Extremity Arterial Study 09/10/18 00:00 CONCLUSION: 1. Findings discerning for significant right lower extremity ischemia and likely occlusion of the right femoral to popliteal bypass graft with nearly flat waveforms and unobtainable pressures. 2. Status post left BKA. Tibia/Fibula X-Ray 09/13/18 00:00 CONCLUSION: 1. Status post below the knee amputation. 2. No evidence to suggest osteomyelitis. 3. Possible soft tissue erosion at the base of the amputation. Head CT 09/13/18 06:22 CONCLUSION: 1. No acute intracranial abnormality. 2. Progressive right maxillary sinus mucosal disease. . Head MRI 09/14/18 00:00 CONCLUSION: Chronic small vessel ischemic and atrophic changes. Chest X-Ray 09/17/18 05:00 CONCLUSION: Prominence of the central pulmonary vessels, stable from prior. No parenchymal infiltrates seen. Physical Exam: GENERAL: NAD lethargic, easily arousable SKIN: Warm and dry. HEAD: Atraumatic. Normocephalic. EYES: diconjugated gaze ENT: No nasal bleeding or discharge. Mucous membranes pink and moist. NECK: Trachea midline. No JVD. CARDIOVASCULAR: Regular rate and rhythm. + murmur 3/6 systolic RESPIRATORY: No accessory muscle use. Clear to auscultation. Breath sounds equal bilaterally. GASTROINTESTINAL: Abdomen soft, non-tender, nondistended. Hepatic and splenic margins not palpable. MUSCULOSKELETAL: Extremities without clubbing, cyanosis, or edema. L BKA: opening in the middle of incision, draining white pus cold to touch R foot, not refilling, pulseless with evolving dry gangrenous changes L BKA with small purulent draiange on the dressing L UE incision dry, clean, well approximated NEUROLOGICAL: pt is lehtargic, arousable ; responsive to verbal stimuli, moving extremeties to command PSYCHIATRIC: calm LINES: vascath in place R chest Assessment and Plan - Plan New issue: sp code ? stroke MRSA sepsis: souce MV endocarditis MV endocartditis AMS no septic emboli HD, non comliance came with electrolytes imbalance Ischemic R foot with mumification of some toes - vasc surgery ff Non healing L BKA site. Needs revision XR neg for osteo no acute ischemia h/o RLE ileofemoral and fem pop bypass in Feb 2018 Infected pseudoaneurism of R UE AVF - sp repair, I+D cont vancomycin w HD keep trough levels 15-20; trough remains low Anticipate 6-8 weeks of tx with vancomycin dw RN
[2018-09-18] MEDS: Insulin NovoLIN Regular Correctional Sugar Inj SQ SCH ×4 (01:01→18:32)
[2018-09-18] MEDS: Morphine Inj 4 MG/ML Vial IV.PUSH PRN (02:24)
[2018-09-18] MEDS: Heparin - SQ 10,000 UNITS/ML Vial SQ SCH ×2 (05:02→17:40)
[2018-09-18 05:23] LABS: Hemoglobin 9.9 gm/dL (11.6-15.3); Mean Corpuscular HGB Conc 31.9 % (32.0-36.0); Mean Corpuscular Hemoglobin 26.3 pg (27.0-34.0); Mean Corpuscular Volume 82.6 fL (80.0-100.0); Mean Platelet Volume 10.2 fL (7.0-11.0); Platelet Count 235 th/mm3 (150-450); Red Blood Count 3.75 mil/mm3 (4.00-5.30); Red Cell Distribution Width 19.1 % (11.6-17.2); White Blood Count 10.7 th/mm3 (4.0-11.0)
[2018-09-18 05:58] LABS: Calcium 8.4 mg/dL (8.5-10.1); Carbon Dioxide 31.8 meq/L (21.0-32.0); Magnesium 2.2 mg/dL (1.5-2.5); Potassium 3.3 meq/L (3.5-5.1)
[2018-09-18] MEDS: Senna/Docusate Sodium 8.6/50 MG Tablet PO SCH ×2 (08:01→20:00)
[2018-09-18] MEDS: Famotidine 20 MG Tablet PO SCH ×2 (08:01→20:00)
--- NOTE | 2018-09-18 09:20 | P.PNVS ---
Subjective Subjective/Hospital Course: intubated, opens eyes to voice doesn't appear to be in any distress heidy TF Objective Vital Signs / I&O: Vital Signs 09/17/18 09:30 09/17/18 09:45 09/17/18 10:00 Temperature Pulse Rate 76 76 77 Respiratory Rate 15 15 15 Blood Pressure 132/69 119/64 117/62 Pulse Oximetry 100 100 100 09/17/18 10:09 09/17/18 10:15 09/17/18 10:30 Temperature Pulse Rate 79 81 Respiratory Rate 15 15 18 Blood Pressure 118/65 123/64 Pulse Oximetry 100 100 100 09/17/18 10:45 09/17/18 11:00 09/17/18 11:15 Temperature Pulse Rate 84 86 84 Respiratory Rate 17 16 15 Blood Pressure 122/69 119/69 132/66 Pulse Oximetry 100 100 100 09/17/18 11:30 09/17/18 11:45 09/17/18 12:00 Temperature 99 F Pulse Rate 85 86 83 Respiratory Rate 17 16 15 Blood Pressure 124/67 122/73 123/71 Pulse Oximetry 100 100 100 09/17/18 12:15 09/17/18 12:30 09/17/18 12:45 Temperature Pulse Rate 83 80 79 Respiratory Rate 21 22 15 Blood Pressure 136/68 133/67 122/57 L Pulse Oximetry 100 100 100 09/17/18 12:52 09/17/18 13:00 09/17/18 13:15 Temperature Pulse Rate 79 84 Respiratory Rate 15 15 15 Blood Pressure 119/55 L 140/67 Pulse Oximetry 100 100 100 09/17/18 13:30 09/17/18 13:45 09/17/18 14:00 Temperature Pulse Rate 80 80 79 Respiratory Rate 15 15 15 Blood Pressure 111/56 L 109/61 98/58 L Pulse Oximetry 100 100 100 09/17/18 14:15 09/17/18 14:30 09/17/18 14:45 Temperature Pulse Rate 81 79 79 Respiratory Rate 15 15 15 Blood Pressure 102/60 109/70 102/61 Pulse Oximetry 100 100 100 09/17/18 15:00 09/17/18 15:15 09/17/18 15:30 Temperature Pulse Rate 79 77 80 Respiratory Rate 15 15 15 Blood Pressure 100/57 L 107/58 L 103/62 Pulse Oximetry 100 100 100 09/17/18 15:45 09/17/18 16:00 09/17/18 16:15 Temperature Pulse Rate 79 78 77 Respiratory Rate 15 15 15 Blood Pressure 102/55 L 99/57 L 97/55 L Pulse Oximetry 100 100 100 09/17/18 16:30 09/17/18 16:45 09/17/18 17:23 Temperature Pulse Rate 77 78 Respiratory Rate 15 15 17 Blood Pressure 101/59 L 107/56 L Pulse Oximetry 100 100 100 09/17/18 19:30 09/17/18 20:00 09/17/18 22:30 Temperature 98.7 F Pulse Rate 77 Respiratory Rate 15 15 15 Blood Pressure 99/58 L Pulse Oximetry 100 100 100 09/18/18 00:00 09/18/18 01:20 09/18/18 02:26 Temperature 98.7 F Pulse Rate 77 Respiratory Rate 15 15 18 Blood Pressure 96/59 L Pulse Oximetry 100 100 09/18/18 04:00 09/18/18 04:25 09/18/18 07:20 Temperature 98 F Pulse Rate 77 Respiratory Rate 15 15 7 L Blood Pressure 137/68 Pulse Oximetry 100 100 100 09/18/18 08:00 Temperature Pulse Rate 80 Respiratory Rate Blood Pressure Pulse Oximetry Intake & Output 09/17/18 09/18/18 09/18/18 18:59 06:59 18:59 Intake Total 814.5 / 814.5 457 / 457 Output Total 3000 / 3000 0 / 0 Balance -2185.5 / -2185.5 457 / 457 Weight 49.5 kg Intake: IV 262.5 / 262.5 Vancomycin Inj 1,250 MG In NS 262.5 / 262.5 Inj 250 ML @ 250 mls/hr IV.SIG WITH [facility]YSIS [facility] Rx#:[id number] Oral 0 / 0 Tube Feeding 372 / 372 397 / 397 Tube Irrigant 180 / 180 60 / 60 Output: Urine 0 / 0 0 / 0 Stool 0 / 0 Urine/Stool Mix 0 / 0 Hemodialysis Amount 3000 / 3000 Other: Post Void Residual 0 # Voids 0 # Incontinent Voids 0 # Urine Diapers 0 Date of Last Bowel Movement 09/17/18 09/17/18 # Bowel Movements 1 0 # Incontinent Bowel Movements 0 Physical Exam: L UE incision healing nicely L BKA ischemic with anterior tibial eric protrusion and stump eric protrusion R foot with dry gangrene, no odor Laboratory Results - last 24 hr 09/17/18 09/17/18 09/17/18 12:25 17:20 23:31 WBC RBC Hgb Hct MCV MCH MCHC RDW Plt Count MPV Sodium Potassium Chloride Carbon Dioxide Anion Gap BUN Creatinine Estimated GFR POC Glucose 164 H 166 H 147 H Random Glucose Calcium Phosphorus Magnesium 09/18/18 09/18/18 09/18/18 04:47 04:47 05:06 WBC 10.7 RBC 3.75 L Hgb 9.9 L Hct 31.0 L MCV 82.6 MCH 26.3 L MCHC 31.9 L RDW 19.1 H Plt Count 235 MPV 10.2 Sodium 140 Potassium 3.3 L Chloride 97 L Carbon Dioxide 31.8 Anion Gap 11 BUN 32 H Creatinine 3.42 H Estimated GFR 17 L POC Glucose 203 H Random Glucose 176 H Calcium 8.4 L Phosphorus 3.0 Magnesium 2.2 Impressions Chest X-Ray 09/17/18 05:00 CONCLUSION: Prominence of the central pulmonary vessels, stable from prior. No parenchymal infiltrates seen. Assessment and Plan - Assessment (1) Abscess of upper extremity Code(s): L02.419 - Cutaneous abscess of limb, unspecified Status: Acute (2) Toxic metabolic encephalopathy Code(s): G92 - Toxic encephalopathy Status: Acute (3) Severe sepsis Code(s): A41.9 - Sepsis, unspecified organism; R65.20 - Severe sepsis without septic shock Status: Acute (4) PAD (peripheral artery disease) Code(s): I73.9 - Peripheral vascular disease, unspecified Status: Chronic - Plan Left upper extremity abscess, infected hematoma. S/P excision of infected PSA. looks great, incision healing Right lower extremity peripheral vascular disease dry gangrene, likely failed intervention from months ago no other revascularization options - needs AKA vs BKA LBKA stump will need revision in the future, conversion to AKA None of her wounds appear infected - only dry gangrene This patient has a very poor outcome and palliative care should be considered
--- NOTE | 2018-09-18 11:06 | P.PNNP ---
Subjective Interval history: Patient remain on the vent. and now on CPAP. Physical Exam Vital signs: Vital Signs 09/17/18 11:15 09/17/18 11:30 09/17/18 11:45 Temperature Pulse Rate 84 85 86 Respiratory Rate 15 17 16 Blood Pressure 132/66 124/67 122/73 Pulse Oximetry 100 100 100 09/17/18 12:00 09/17/18 12:15 09/17/18 12:30 Temperature 99 F Pulse Rate 83 83 80 Respiratory Rate 15 21 22 Blood Pressure 123/71 136/68 133/67 Pulse Oximetry 100 100 100 09/17/18 12:45 09/17/18 12:52 09/17/18 13:00 Temperature Pulse Rate 79 79 Respiratory Rate 15 15 15 Blood Pressure 122/57 L 119/55 L Pulse Oximetry 100 100 100 09/17/18 13:15 09/17/18 13:30 09/17/18 13:45 Temperature Pulse Rate 84 80 80 Respiratory Rate 15 15 15 Blood Pressure 140/67 111/56 L 109/61 Pulse Oximetry 100 100 100 09/17/18 14:00 09/17/18 14:15 09/17/18 14:30 Temperature Pulse Rate 79 81 79 Respiratory Rate 15 15 15 Blood Pressure 98/58 L 102/60 109/70 Pulse Oximetry 100 100 100 09/17/18 14:45 09/17/18 15:00 09/17/18 15:15 Temperature Pulse Rate 79 79 77 Respiratory Rate 15 15 15 Blood Pressure 102/61 100/57 L 107/58 L Pulse Oximetry 100 100 100 09/17/18 15:30 09/17/18 15:45 09/17/18 16:00 Temperature Pulse Rate 80 79 78 Respiratory Rate 15 15 15 Blood Pressure 103/62 102/55 L 99/57 L Pulse Oximetry 100 100 100 09/17/18 16:15 09/17/18 16:30 09/17/18 16:45 Temperature Pulse Rate 77 77 78 Respiratory Rate 15 15 15 Blood Pressure 97/55 L 101/59 L 107/56 L Pulse Oximetry 100 100 100 09/17/18 17:23 09/17/18 19:30 09/17/18 20:00 Temperature 98.7 F Pulse Rate 77 Respiratory Rate 17 15 15 Blood Pressure 99/58 L Pulse Oximetry 100 100 100 09/17/18 22:30 09/18/18 00:00 09/18/18 01:20 Temperature 98.7 F Pulse Rate 77 Respiratory Rate 15 15 15 Blood Pressure 96/59 L Pulse Oximetry 100 100 100 09/18/18 02:26 09/18/18 04:00 09/18/18 04:25 Temperature 98 F Pulse Rate 77 Respiratory Rate 18 15 15 Blood Pressure 137/68 Pulse Oximetry 100 100 09/18/18 07:20 09/18/18 08:00 Temperature 99.5 F Pulse Rate 80 Respiratory Rate 7 L 10 L Blood Pressure 118/64 Pulse Oximetry 100 Intake & Output 09/17/18 09/18/18 09/18/18 18:59 06:59 18:59 Intake Total 814.5 / 814.5 457 / 457 Output Total 3000 / 3000 0 / 0 Balance -2185.5 / -2185.5 457 / 457 Weight 49.5 kg Intake: IV 262.5 / 262.5 Vancomycin Inj 1,250 MG In NS 262.5 / 262.5 Inj 250 ML @ 250 mls/hr IV.SIG WITH DIALYSIS RAFAEL Rx#:[id number] Oral 0 / 0 Tube Feeding 372 / 372 397 / 397 Tube Irrigant 180 / 180 60 / 60 Output: Urine 0 / 0 0 / 0 Stool 0 / 0 Urine/Stool Mix 0 / 0 Hemodialysis Amount 3000 / 3000 Other: Post Void Residual 0 # Voids 0 # Incontinent Voids 0 # Urine Diapers 0 Date of Last Bowel Movement 09/17/18 09/17/18 # Bowel Movements 1 0 # Incontinent Bowel Movements 0 Narrative: On the vent. Poorly responsive. Chest: vented breath sounds bilaterally, no rhonchi, no wheezing. Heart: RRR. 3/6 systolic murmur. No edema. s/p left BKA. Chronic ischemia right lower extremity. Assessment and Plan - Assessment (1) ESRD (end stage renal disease) Code(s): N18.6 - End stage renal disease Status: Chronic Plan: Dialysis MWF. Dialyzed today. K+ stable She is s/p repair/excision of infected pseudoaneurysm of AVF, with apparent interposition bovine graft. Fistula pseudo aneurysm grossly infected. Previous steal history - no apparent signs of steal at this point. Currently with non-tunneled HD catheter, will need to change to tunneled catheter when blood cultures clear. Dialysis today, remove VasCath after dialysis. PermCath on Thursday if cultures are negative. Continue antibiotics as per ID. ---- (2) Hyperkalemia Code(s): E87.5 - Hyperkalemia Status: Acute Plan: Improved. . (3) Renal mass Code(s): N28.89 - Other specified disorders of kidney and ureter Status: Acute Plan: Renal mass has grown in size, most likely malignancy. Urology note reviewed, to follow up after discharge. (4) Severe sepsis Code(s): A41.9 - Sepsis, unspecified organism; R65.20 - Severe sepsis without septic shock Status: Acute Plan: MRSA sepsis, endocarditis. MRI of the brain negative for septic emboli. She has mitral valve vegetation. On Vancomycin. s/p excision of infected pseudoaneurysm of AVF. (5) CAD (coronary artery disease) Code(s): I25.10 - Atherosclerotic heart disease of [place] coronary artery without angina pectoris Status: Chronic (6) PAD (peripheral artery disease) Code(s): I73.9 - Peripheral vascular disease, unspecified Status: Chronic Plan: s/p left BKA. Poor circulation of right lower extremity. Vascular surgery following. (7) DM2 (diabetes mellitus, type 2) Code(s): E11.9 - Type 2 diabetes mellitus without complications Status: Chronic Plan: maintain blood glucose between 140 and 180 while hospitalized.
--- NOTE | 2018-09-18 16:39 | P.PNCC ---
Subjective Subjective Remarks/Hospital Course: No history is obtainable from the patient due to altered mental status. All history obtained from chart review and discussion with ED attending. Patient is a 58-year-old -[place] female with past medical history of type 2 diabetes, hypertension, hyperlipidemia, ESRD on HD M/W/F, CHF Echo 03/22/07 EF 30 -35%, CAD, s/p LAD stent 06/08, status post left BKA. Patient was brought to the emergency department by EMS for altered mental status. Apparently patient was found lying on the floor between 2 dressers, missed two dialysis appointments. CT of the head was negative for acute findings chest x-ray showed pulmonary vascular congestion, left lower lobe atelectasis. CT abdomen pelvis showed large 6.2 cm renal mass which has grown in size since last scan in Nov 2017, and suspicious for renal cell carcinoma. Her WBC count was 23.4 with left shift, with altered mental status this was most likely secondary to severe sepsis. Patient was empirically given vancomycin and Zosyn in the ED after getting blood cultures. Also her potassium was 6.3 patient is receiving bicarb now and nephrology had been contacted for stat dialysis I evaluated the patient in the emergency department. Patient is very lethargic encephalopathic. She mumbles a few words but did not follow commands. Even though very lethargic at this point she is protecting airway. In addition to IV bicarb I will also give 5 units of insulin and IV dextrose. Antibiotics will be continued-renally dosed vancomycin and Zosyn. Will request nephrology and urology consult. At this time critically ill with severe sepsis. 09/07: Patient is lying in bed mental status seems to be improved alert oriented x2 today. Potassium is 5.3 chest x-ray shows pulmonary edema. Will request for repeat hemodialysis today 09/13: Rapid response team activated for patient hypotension and hypoxemia. After transfer to ICU I have found patient in agonal breathing and immediately intubated her with 7.5 ET tube. Shortly after intubation the patient was pulseless and 1 cycle of CPR was performed including one injection of epinephrine, chest compressions, and sodium bicarbonate injections. Family notified about the critical condition. 09/14: Remains encephalopathic, orally intubated on mechanical ventilation. 09/15: More awake, opening eyes, squeezing my fingers with her hands on command. Remains orally intubated on mechanical ventilation. 09/16: clinically improving. following commands. on PSV 15/5/40%. HD yesterday with good volume removal. 09/17: still failing SBTs- going apneic into back-up mode. will attempt again today. likely will need HD again today. still following commands. Subjective 09/18: During CPAP trials. T-max 100.5 currently 100. -3 L with hemodialysis. Arousable and follows commands. Objective Vital Signs / I&O: Vital Signs 09/17/18 16:45 09/17/18 17:23 09/17/18 19:30 Temperature Pulse Rate 78 Respiratory Rate 15 17 15 Blood Pressure 107/56 L Pulse Oximetry 100 100 100 09/17/18 20:00 09/17/18 22:30 09/18/18 00:00 Temperature 98.7 F 98.7 F Pulse Rate 77 77 Respiratory Rate 15 15 15 Blood Pressure 99/58 L 96/59 L Pulse Oximetry 100 100 100 09/18/18 01:20 09/18/18 02:26 09/18/18 04:00 Temperature 98 F Pulse Rate 78 Respiratory Rate 15 18 15 Blood Pressure 137/68 Pulse Oximetry 100 100 09/18/18 04:25 09/18/18 04:30 09/18/18 05:00 Temperature Pulse Rate 79 78 Respiratory Rate 15 15 15 Blood Pressure 136/71 117/63 Pulse Oximetry 100 100 100 09/18/18 05:30 09/18/18 06:00 09/18/18 06:30 Temperature Pulse Rate 79 81 82 Respiratory Rate 16 15 15 Blood Pressure 134/65 110/59 L 114/62 Pulse Oximetry 100 100 100 09/18/18 07:00 09/18/18 07:20 09/18/18 07:30 Temperature Pulse Rate 79 79 Respiratory Rate 15 7 L 14 Blood Pressure 120/58 L 119/64 Pulse Oximetry 100 100 100 09/18/18 08:00 09/18/18 08:30 09/18/18 09:00 Temperature 99.5 F Pulse Rate 80 81 80 Respiratory Rate 10 L 8 L 9 L Blood Pressure 118/64 112/61 106/61 Pulse Oximetry 100 100 100 09/18/18 09:30 09/18/18 10:00 09/18/18 10:30 Temperature Pulse Rate 81 80 82 Respiratory Rate 9 L 12 20 Blood Pressure 109/62 107/61 111/64 Pulse Oximetry 100 100 100 09/18/18 11:00 09/18/18 11:30 09/18/18 12:00 Temperature 100.6 F H Pulse Rate 81 80 80 Respiratory Rate 13 10 L 15 Blood Pressure 107/61 107/61 99/58 L Pulse Oximetry 100 100 100 09/18/18 12:30 09/18/18 12:41 09/18/18 13:00 Temperature Pulse Rate 81 79 Respiratory Rate 11 L 8 L 9 L Blood Pressure 112/61 104/60 Pulse Oximetry 100 100 100 09/18/18 13:30 09/18/18 14:00 09/18/18 14:30 Temperature Pulse Rate 80 79 77 Respiratory Rate 9 L 12 12 Blood Pressure 106/60 96/54 L 93/51 L Pulse Oximetry 100 100 100 09/18/18 15:00 09/18/18 15:25 09/18/18 15:30 Temperature Pulse Rate 79 80 Respiratory Rate 16 14 18 Blood Pressure 88/51 L 102/55 L Pulse Oximetry 100 100 09/18/18 16:00 Temperature 100.0 F H Pulse Rate 80 Respiratory Rate 18 Blood Pressure 97/56 L Pulse Oximetry 100 Intake & Output 09/17/18 09/18/18 09/18/18 18:59 06:59 18:59 Intake Total 814.5 / 814.5 457 / 457 Output Total 3000 / 3000 0 / 0 Balance -2185.5 / -2185.5 457 / 457 Weight 49.5 kg Intake: IV 262.5 / 262.5 Vancomycin Inj 1,250 MG In NS 262.5 / 262.5 Inj 250 ML @ 250 mls/hr IV.SIG WITH DIALYSIS [facility] Rx#:[id number] Oral 0 / 0 Tube Feeding 372 / 372 397 / 397 Tube Irrigant 180 / 180 60 / 60 Output: Urine 0 / 0 0 / 0 Stool 0 / 0 Urine/Stool Mix 0 / 0 Hemodialysis Amount 3000 / 3000 Other: Post Void Residual 0 # Voids 0 # Incontinent Voids 0 # Urine Diapers 0 Date of Last Bowel Movement 09/17/18 09/17/18 # Bowel Movements 1 0 # Incontinent Bowel Movements 0 Result Diagrams: 09/18/18 04:47 09/18/18 04:47 Other Results: Microbiology 09/09/18 11:20 Wound - Arm Fungal Smear - Final No fungal elements seen 09/09/18 11:20 Wound - Arm Fungal Culture - Preliminary No growth in 1 week 09/09/18 11:20 Wound - Arm Acid Fast Bacilli Smear - Final No acid fast bacilli seen 09/09/18 11:20 Wound - Arm Mycobacterial Culture - Preliminary No growth in 1 week 09/11/18 08:30 Blood - Peripheral Aerobic Blood Culture - Final No growth in 5 days 09/11/18 08:30 Blood - Peripheral Anaerobic Blood Culture - Final QNS - See aerobic report. 09/11/18 08:39 Blood - Peripheral Aerobic Blood Culture - Final No growth in 5 days 09/11/18 08:39 Blood - Peripheral Anaerobic Blood Culture - Final No growth in 5 days 09/09/18 03:55 Blood - Peripheral Aerobic Blood Culture - Final S. aureus MRSA 09/09/18 03:55 Blood - Peripheral Anaerobic Blood Culture - Final S. aureus MRSA 09/09/18 03:47 Blood - Peripheral Aerobic Blood Culture - Final S. aureus MRSA 09/09/18 03:47 Blood - Peripheral Anaerobic Blood Culture - Final S. aureus MRSA 09/09/18 11:20 Wound - Arm Gram Stain - Final 09/09/18 11:20 Wound - Arm Wound Culture - Final S. aureus MRSA 09/06/18 11:20 Blood - Peripheral Aerobic Blood Culture - Final S. aureus MRSA 09/06/18 11:20 Blood - Peripheral Anaerobic Blood Culture - Final S. aureus MRSA 09/06/18 11:28 Blood - Peripheral Aerobic Blood Culture - Final S. aureus MRSA 09/06/18 11:28 Blood - Peripheral Anaerobic Blood Culture - Final S. aureus MRSA Imaging: Abdomen/Pelvis CT 09/06/18 11:10 CONCLUSION: 1. Moderate stool in the rectum. No dilated loops of bowel to suggest obstruction. 2. Persistent large solid mass arising from the superior pole the right kidney measuring up to 6.2 cm. This is a renal cell carcinoma until proven otherwise. 3. End-stage appearing kidneys bilaterally. 4. Prominent diffuse vascular calcifications. Chest X-Ray 09/06/18 11:10 CONCLUSION: 1. Cardiomegaly with positive fluid balance. 2. Minimal left lung base airspace disease, presumably atelectasis. Head CT 09/06/18 11:10 CONCLUSION: 1. Atrophy and atherosclerosis. . Chest X-Ray 09/07/18 06:00 CONCLUSION: Cardiomegaly and findings of congestive heart failure. There has been no significant change when compared to the prior exam. Head MRI 09/08/18 00:00 CONCLUSION: 1. No acute findings. No recent infarct. Mild chronic white matter ischemic changes in the periventricular region. Upper Extremity Ultrasound 09/09/18 00:00 CONCLUSION: Mixed echogenicity collection around the proximal fistula outflow in the medial left upper arm. Arterial Ultrasound 09/10/18 00:00 CONCLUSION: 1. Right iliofemoral and femoral popliteal bypass grafts appear to be occluded. 2. Occlusion of the north fork superficial femoral and popliteal arteries. Proximal trifurcation vessels also appear to be occluded. 3. Monophasic signal in the right external iliac, common femoral and profunda femoral arteries. 4. CTA abdomen and runoff could be performed for anatomic characterization if clinically warranted. Catheter Placement 09/10/18 00:00 CONCLUSION: 1. Uncomplicated line placement as above. The patient has an occluded right internal jugular vein. This catheter was placed in the external jugular vein. Extremity Arterial Study 09/10/18 00:00 CONCLUSION: 1. Findings discerning for significant right lower extremity ischemia and likely occlusion of the right femoral to popliteal bypass graft with nearly flat waveforms and unobtainable pressures. 2. Status post left BKA. Tibia/Fibula X-Ray 09/13/18 00:00 CONCLUSION: 1. Status post below the knee amputation. 2. No evidence to suggest osteomyelitis. 3. Possible soft tissue erosion at the base of the amputation. Head CT 09/13/18 06:22 CONCLUSION: 1. No acute intracranial abnormality. 2. Progressive right maxillary sinus mucosal disease. . Chest X-Ray 09/13/18 06:44 CONCLUSION: 1. ETT 4 mm above the valeria. 2. Right IJ dialysis catheter in good position. 3. Persistent positive fluid balance. 4. Mild left lung base atelectasis/scarring. Head MRI 09/14/18 00:00 CONCLUSION: Chronic small vessel ischemic and atrophic changes. Chest X-Ray 09/17/18 05:00 CONCLUSION: Prominence of the central pulmonary vessels, stable from prior. No parenchymal infiltrates seen. Objective Remarks: GENERAL: 58-year-old AA female, lying in bed intubated. SKIN: Warm and dry. HEAD: Atraumatic. Normocephalic. EYES: Pupils equal and round, 2 mm reactive. No scleral icterus. ENT: No nasal bleeding or discharge. Mucous membranes moist NECK: Trachea midline. No JVD. CARDIOVASCULAR: RRR. S1, S2. No S4. 2/6 murmur systolic. RESPIRATORY: On mechanical ventilation, equal chest rise. Currently on PSV trials GASTROINTESTINAL: Abdomen soft, non-tender, nondistended. MUSCULOSKELETAL: AV fistula in left upper arm with palpable thrill. s/p L BKA NEUROLOGICAL: awake, alert, follows commands. RASS 0. Assessment and Plan - Assessment and Plan Plan: NEURO/PSYCH: Toxic metabolic encephalopathy- improving. History of peripheral neuropathy History of glaucoma Avoid any sedating medication CT head negative for bleed. Encephalopathy most likely from metabolic causes/sepsis. EEG generalized slowing 09/15 MRI brain 09/15 no acute disease. Neurology following RESP: Acute hypoxic and hypercarbic Respiratory failure Pulmonary edema Currently on PSV trial. PRVC overnight Albuterol/ipratropium aerosols every 4 hours with albuterol aerosols every 2 hours as needed dyspnea Continue mechanical ventilation and ventilator bundle continue SBTs today wean fio2 for goal spo2 > 90% Chest x-ray in a.m. 09/19 CV: Coronary artery disease with prior stents (LAD stent 06/08) Chronic systolic heart failure ejection fraction 30-35% 2016 Severe TR Severe mitral regurgitation [place] mitral valve infective endocarditis s/p L BKA s/p R iliofemoral bypass and R fem-pop bypass by Dr. Ramirez 11/26/17 Peripheral arterial disease Hypertension, dyslipidemia Continue baby aspirin 81 mg daily severe MR continues to require volume removal. HD per nephrology. Currently not requiring vasopressors and her anti-pretenses Cardiogram revealed EF of 30%. PAP 57 mmHg. Severe TR. [place] mitral valve mass. GI: Acute protein calorie malnutrition- severe change to PO famotidine Tolerating Nepro tube feeds at 40 cc an hour per nutrition recommendation. Docusate sodium/senna twice daily for bowel regimen FEN/RENAL: ESRD Large right renal mass suspicious for renal cell carcinoma Hemodialysis Thursday/Thursday/Thursday per nephrology, Dr Ahumada. Urology consulted for right renal mass (previously refused work up) Sevelamer 1600 mg 3 times daily for hyperphosphatemia ID: Severe sepsis- resolved [place] Mitral Valve infective endocarditis Source of sepsis: mitral valve endocarditis IV vancomycin per ID Dr. Dowd HEME: Anemia of chronic kidney disease Monitor CBC daily. Follow trends. No indication for blood transfusion at this time ENDO: Diabetes mellitus, type II med-dose insulin sliding scale q6h PROPH: Heparin 5000 subcutaneous every 12 for DVT prophylaxis. PO famotidine ACCESS: Right groin central line 09/13/2018-to be discontinued 09/15 piv Level 2 follow-up
[2018-09-18] MEDS ORDERED: Carboxymethylcellulose 0.5% Opth Drops 15 ML Bottle EACH EYE SCH (21:00)
[2018-09-19] MEDS: Polyvinyl Alcohol/Povidone PF Opth Drops 0.4 ML Dropperette EACH EYE SCH ×2 (00:30→08:48)
[2018-09-19] MEDS: Morphine Inj 4 MG/ML Vial IV.PUSH PRN ×2 (02:05→12:02)
[2018-09-19] MEDS: Heparin - SQ 10,000 UNITS/ML Vial SQ SCH ×2 (05:49→19:20)
[2018-09-19] MEDS: Insulin NovoLIN Regular Correctional Sugar Inj SQ SCH ×4 (05:49→18:00)
[2018-09-19 07:47] LABS: Hematocrit 29.8 % (35.0-46.0); Hemoglobin 9.8 gm/dL (11.6-15.3); Mean Corpuscular HGB Conc 32.8 % (32.0-36.0); Mean Corpuscular Hemoglobin 26.7 pg (27.0-34.0); Mean Corpuscular Volume 81.4 fL (80.0-100.0); Mean Platelet Volume 10.4 fL (7.0-11.0); Platelet Count 227 th/mm3 (150-450); Red Blood Count 3.66 mil/mm3 (4.00-5.30); White Blood Count 9.3 th/mm3 (4.0-11.0)
[2018-09-19 07:51] LABS: Calcium 8.2 mg/dL (8.5-10.1); Carbon Dioxide 29.9 meq/L (21.0-32.0); Magnesium 2.4 mg/dL (1.5-2.5); Phosphorus 3.5 mg/dL (2.5-4.9); Potassium 3.5 meq/L (3.5-5.1)
[2018-09-19] MEDS: Famotidine 20 MG Tablet PO SCH ×2 (08:47→21:33)
[2018-09-19] MEDS: Senna/Docusate Sodium 8.6/50 MG Tablet PO SCH ×2 (08:48→21:32)
--- NOTE | 2018-09-19 10:23 | P.PNCC ---
Subjective Subjective Remarks/Hospital Course: No history is obtainable from the patient due to altered mental status. All history obtained from chart review and discussion with ED attending. Patient is a 58-year-old -[place] female with past medical history of type 2 diabetes, hypertension, hyperlipidemia, ESRD on HD M/W/F, CHF Echo 03/22/07 EF 30 -35%, CAD, s/p LAD stent 06/08, status post left BKA. Patient was brought to the emergency department by EMS for altered mental status. Apparently patient was found lying on the floor between 2 dressers, missed two dialysis appointments. CT of the head was negative for acute findings chest x-ray showed pulmonary vascular congestion, left lower lobe atelectasis. CT abdomen pelvis showed large 6.2 cm renal mass which has grown in size since last scan in Nov 2017, and suspicious for renal cell carcinoma. Her WBC count was 23.4 with left shift, with altered mental status this was most likely secondary to severe sepsis. Patient was empirically given vancomycin and Zosyn in the ED after getting blood cultures. Also her potassium was 6.3 patient is receiving bicarb now and nephrology had been contacted for stat dialysis I evaluated the patient in the emergency department. Patient is very lethargic encephalopathic. She mumbles a few words but did not follow commands. Even though very lethargic at this point she is protecting airway. In addition to IV bicarb I will also give 5 units of insulin and IV dextrose. Antibiotics will be continued-renally dosed vancomycin and Zosyn. Will request nephrology and urology consult. At this time critically ill with severe sepsis. 09/07: Patient is lying in bed mental status seems to be improved alert oriented x2 today. Potassium is 5.3 chest x-ray shows pulmonary edema. Will request for repeat hemodialysis today 09/13: Rapid response team activated for patient hypotension and hypoxemia. After transfer to ICU I have found patient in agonal breathing and immediately intubated her with 7.5 ET tube. Shortly after intubation the patient was pulseless and 1 cycle of CPR was performed including one injection of epinephrine, chest compressions, and sodium bicarbonate injections. Family notified about the critical condition. 09/14: Remains encephalopathic, orally intubated on mechanical ventilation. 09/15: More awake, opening eyes, squeezing my fingers with her hands on command. Remains orally intubated on mechanical ventilation. 09/16: clinically improving. following commands. on PSV 15/5/40%. HD yesterday with good volume removal. 09/17: still failing SBTs- going apneic into back-up mode. will attempt again today. likely will need HD again today. still following commands. 09/18: During CPAP trials. T-max 100.5 currently 100. -3 L with hemodialysis. Arousable and follows commands. Subjective 09/19: T-max 100.6. Currently 100.1. Appears comfortable on PSV trial. Lasted greater than 9 hours 09/18 tolerating tube feeds. White blood cell count is normalized. Objective Vital Signs / I&O: Vital Signs 09/18/18 10:30 09/18/18 11:00 09/18/18 11:30 Temperature Pulse Rate 82 81 80 Respiratory Rate 20 13 10 L Blood Pressure 111/64 107/61 107/61 Pulse Oximetry 100 100 100 09/18/18 12:00 09/18/18 12:30 09/18/18 12:41 Temperature 100.6 F H Pulse Rate 80 81 Respiratory Rate 15 11 L 8 L Blood Pressure 99/58 L 112/61 Pulse Oximetry 100 100 100 09/18/18 13:00 09/18/18 13:30 09/18/18 14:00 Temperature Pulse Rate 79 80 79 Respiratory Rate 9 L 9 L 12 Blood Pressure 104/60 106/60 96/54 L Pulse Oximetry 100 100 100 09/18/18 14:30 09/18/18 15:00 09/18/18 15:25 Temperature Pulse Rate 77 79 Respiratory Rate 12 16 14 Blood Pressure 93/51 L 88/51 L Pulse Oximetry 100 100 09/18/18 15:30 09/18/18 16:00 09/18/18 16:59 Temperature 100.0 F H Pulse Rate 80 80 80 Respiratory Rate 18 18 15 Blood Pressure 102/55 L 97/56 L Pulse Oximetry 100 100 09/18/18 19:00 09/18/18 19:30 09/18/18 20:00 Temperature 98.1 F Pulse Rate 77 78 76 Respiratory Rate 15 15 15 Blood Pressure 116/63 122/64 111/60 Pulse Oximetry 100 100 100 09/18/18 20:22 09/18/18 20:30 09/18/18 21:00 Temperature Pulse Rate 77 76 79 Respiratory Rate 15 15 15 Blood Pressure 112/58 L 101/55 L Pulse Oximetry 100 100 09/18/18 21:30 09/18/18 21:35 09/18/18 22:00 Temperature Pulse Rate 80 80 Respiratory Rate 15 15 15 Blood Pressure 115/59 L 96/52 L Pulse Oximetry 100 100 100 09/18/18 22:30 09/18/18 23:00 09/18/18 23:30 Temperature Pulse Rate 80 79 79 Respiratory Rate 22 17 17 Blood Pressure 107/60 93/55 L 129/66 Pulse Oximetry 100 100 100 09/18/18 23:36 09/18/18 23:37 09/19/18 00:00 Temperature 99.0 F Pulse Rate 77 78 Respiratory Rate 15 15 15 Blood Pressure 84/52 L Pulse Oximetry 100 100 09/19/18 00:30 09/19/18 01:00 09/19/18 01:30 Temperature Pulse Rate 80 79 79 Respiratory Rate 15 15 15 Blood Pressure 103/57 L 91/53 L 94/53 L Pulse Oximetry 100 100 100 09/19/18 02:00 09/19/18 02:03 09/19/18 02:30 Temperature Pulse Rate 80 80 79 Respiratory Rate 15 15 15 Blood Pressure 82/53 L 84/53 L 96/54 L Pulse Oximetry 100 100 100 09/19/18 03:00 09/19/18 03:27 09/19/18 03:28 Temperature Pulse Rate 79 78 Respiratory Rate 15 15 15 Blood Pressure 99/54 L Pulse Oximetry 100 100 09/19/18 03:30 09/19/18 04:00 09/19/18 07:00 Temperature 100.1 F H Pulse Rate 77 78 80 Respiratory Rate 16 15 20 Blood Pressure 115/60 93/53 L Pulse Oximetry 100 100 09/19/18 08:28 Temperature Pulse Rate Respiratory Rate 13 Blood Pressure Pulse Oximetry 100 Intake & Output 09/18/18 09/19/18 09/19/18 18:59 06:59 18:59 Intake Total 556 / 556 723 / 723 Output Total 0 / 0 Balance 556 / 556 723 / 723 Weight 48 kg Intake: Tube Feeding 376 / 376 543 / 543 Tube Irrigant 180 / 180 180 / 180 Output: Urine 0 / 0 Other: Date of Last Bowel Movement 09/18/18 09/19/18 # Bowel Movements 1 Result Diagrams: 09/19/18 07:01 09/19/18 07:01 Other Results: Microbiology 09/09/18 11:20 Wound - Arm Fungal Smear - Final No fungal elements seen 09/09/18 11:20 Wound - Arm Fungal Culture - Preliminary No growth in 1 week 09/09/18 11:20 Wound - Arm Acid Fast Bacilli Smear - Final No acid fast bacilli seen 09/09/18 11:20 Wound - Arm Mycobacterial Culture - Preliminary No growth in 1 week 09/11/18 08:30 Blood - Peripheral Aerobic Blood Culture - Final No growth in 5 days 09/11/18 08:30 Blood - Peripheral Anaerobic Blood Culture - Final QNS - See aerobic report. 09/11/18 08:39 Blood - Peripheral Aerobic Blood Culture - Final No growth in 5 days 09/11/18 08:39 Blood - Peripheral Anaerobic Blood Culture - Final No growth in 5 days 09/09/18 03:55 Blood - Peripheral Aerobic Blood Culture - Final S. aureus MRSA 09/09/18 03:55 Blood - Peripheral Anaerobic Blood Culture - Final S. aureus MRSA 09/09/18 03:47 Blood - Peripheral Aerobic Blood Culture - Final S. aureus MRSA 09/09/18 03:47 Blood - Peripheral Anaerobic Blood Culture - Final S. aureus MRSA 09/09/18 11:20 Wound - Arm Gram Stain - Final 09/09/18 11:20 Wound - Arm Wound Culture - Final S. aureus MRSA 09/06/18 11:20 Blood - Peripheral Aerobic Blood Culture - Final S. aureus MRSA 09/06/18 11:20 Blood - Peripheral Anaerobic Blood Culture - Final S. aureus MRSA 09/06/18 11:28 Blood - Peripheral Aerobic Blood Culture - Final S. aureus MRSA 09/06/18 11:28 Blood - Peripheral Anaerobic Blood Culture - Final S. aureus MRSA Imaging: Abdomen/Pelvis CT 09/06/18 11:10 CONCLUSION: 1. Moderate stool in the rectum. No dilated loops of bowel to suggest obstruction. 2. Persistent large solid mass arising from the superior pole the right kidney measuring up to 6.2 cm. This is a renal cell carcinoma until proven otherwise. 3. End-stage appearing kidneys bilaterally. 4. Prominent diffuse vascular calcifications. Chest X-Ray 09/06/18 11:10 CONCLUSION: 1. Cardiomegaly with positive fluid balance. 2. Minimal left lung base airspace disease, presumably atelectasis. Head CT 09/06/18 11:10 CONCLUSION: 1. Atrophy and atherosclerosis. . Chest X-Ray 09/07/18 06:00 CONCLUSION: Cardiomegaly and findings of congestive heart failure. There has been no significant change when compared to the prior exam. Head MRI 09/08/18 00:00 CONCLUSION: 1. No acute findings. No recent infarct. Mild chronic white matter ischemic changes in the periventricular region. Upper Extremity Ultrasound 09/09/18 00:00 CONCLUSION: Mixed echogenicity collection around the proximal fistula outflow in the medial left upper arm. Arterial Ultrasound 09/10/18 00:00 CONCLUSION: 1. Right iliofemoral and femoral popliteal bypass grafts appear to be occluded. 2. Occlusion of the [place] superficial femoral and popliteal arteries. Proximal trifurcation vessels also appear to be occluded. 3. Monophasic signal in the right external iliac, common femoral and profunda femoral arteries. 4. CTA abdomen and runoff could be performed for anatomic characterization if clinically warranted. Catheter Placement 09/10/18 00:00 CONCLUSION: 1. Uncomplicated line placement as above. The patient has an occluded right internal jugular vein. This catheter was placed in the external jugular vein. Extremity Arterial Study 09/10/18 00:00 CONCLUSION: 1. Findings discerning for significant right lower extremity ischemia and likely occlusion of the right femoral to popliteal bypass graft with nearly flat waveforms and unobtainable pressures. 2. Status post left BKA. Tibia/Fibula X-Ray 09/13/18 00:00 CONCLUSION: 1. Status post below the knee amputation. 2. No evidence to suggest osteomyelitis. 3. Possible soft tissue erosion at the base of the amputation. Head CT 09/13/18 06:22 CONCLUSION: 1. No acute intracranial abnormality. 2. Progressive right maxillary sinus mucosal disease. . Chest X-Ray 09/13/18 06:44 CONCLUSION: 1. ETT 4 mm above the valeria. 2. Right IJ dialysis catheter in good position. 3. Persistent positive fluid balance. 4. Mild left lung base atelectasis/scarring. Head MRI 09/14/18 00:00 CONCLUSION: Chronic small vessel ischemic and atrophic changes. Chest X-Ray 09/17/18 05:00 CONCLUSION: Prominence of the central pulmonary vessels, stable from prior. No parenchymal infiltrates seen. Objective Remarks: GENERAL: 58-year-old AA female, lying in bed intubated. SKIN: Warm and dry. No rash HEAD: Atraumatic. Normocephalic. EYES: Pupils equal and round, 2 mm reactive. No scleral icterus. ENT: No nasal bleeding or discharge. Mucous membranes moist NECK: Trachea midline. No JVD. CARDIOVASCULAR: RRR. S1, S2. No S4. 2/6 murmur systolic. RESPIRATORY: On mechanical ventilation, equal chest rise. Currently on PSV trials GASTROINTESTINAL: Abdomen soft, non-tender, nondistended. MUSCULOSKELETAL: AV fistula in left upper arm with palpable thrill. s/p L BKA NEUROLOGICAL: awake, alert, follows commands. RASS 0. Assessment and Plan - Assessment and Plan Plan: NEURO/PSYCH: Toxic metabolic encephalopathy- improving. History of peripheral neuropathy History of glaucoma Avoid any sedating medication CT head negative for bleed. Encephalopathy most likely from metabolic causes/sepsis. EEG generalized slowing 09/15 MRI brain 09/15 no acute disease. Neurology following RESP: Acute hypoxic and hypercarbic Respiratory failure Pulmonary edema Currently on PSV trial. PRVC overnight Albuterol/ipratropium aerosols every 4 hours with albuterol aerosols every 2 hours as needed dyspnea Continue mechanical ventilation and ventilator bundle continue SBTs today wean fio2 for goal spo2 > 90% Chest x-ray in a.m. 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 Ramirez 11/26/17 Peripheral arterial disease Hypertension, dyslipidemia Continue baby aspirin 81 mg daily severe MR continues to require volume removal. HD per nephrology. Currently not requiring vasopressors and her anti-pretenses Cardiogram revealed EF of 30%. PAP 57 mmHg. Severe TR. [place] mitral valve mass. GI: Acute protein calorie malnutrition- severe Continue 10 mg twice daily PO famotidine Tolerating Nepro tube feeds at 40 cc an hour per nutrition recommendation. Docusate sodium/senna twice daily for bowel regimen FEN/RENAL: ESRD Large right renal mass suspicious for renal cell carcinoma Hemodialysis Thursday/Thursday/Thursday per nephrology, Dr Ahumada. Urology consulted for right renal mass (previously refused work up) Sevelamer 1600 mg 3 times daily for hyperphosphatemia ID: Severe sepsis- resolved [place] Mitral Valve infective endocarditis Source of sepsis: mitral valve endocarditis IV vancomycin per ID Dr. Dowd HEME: Anemia of chronic kidney disease Monitor CBC daily. Follow trends. No indication for blood transfusion at this time ENDO: Diabetes mellitus, type II med-dose insulin sliding scale q6h PROPH: Heparin 5000 subcutaneous every 12 for DVT prophylaxis. PO famotidine ACCESS: Right groin central line 09/13/2018-to be discontinued 09/15 piv Level 2 follow-up
--- NOTE | 2018-09-19 12:02 | P.PNNP ---
Subjective Interval history: Patient is clinically same, remain on the vent. Physical Exam Vital signs: Vital Signs 09/18/18 12:30 09/18/18 12:41 09/18/18 13:00 Temperature Pulse Rate 81 79 Respiratory Rate 11 L 8 L 9 L Blood Pressure 112/61 104/60 Pulse Oximetry 100 100 100 09/18/18 13:30 09/18/18 14:00 09/18/18 14:30 Temperature Pulse Rate 80 79 77 Respiratory Rate 9 L 12 12 Blood Pressure 106/60 96/54 L 93/51 L Pulse Oximetry 100 100 100 09/18/18 15:00 09/18/18 15:25 09/18/18 15:30 Temperature Pulse Rate 79 80 Respiratory Rate 16 14 18 Blood Pressure 88/51 L 102/55 L Pulse Oximetry 100 100 09/18/18 16:00 09/18/18 16:59 09/18/18 19:00 Temperature 100.0 F H Pulse Rate 80 80 77 Respiratory Rate 18 15 15 Blood Pressure 97/56 L 116/63 Pulse Oximetry 100 100 09/18/18 19:30 09/18/18 20:00 09/18/18 20:22 Temperature 98.1 F Pulse Rate 78 76 77 Respiratory Rate 15 15 15 Blood Pressure 122/64 111/60 Pulse Oximetry 100 100 09/18/18 20:30 09/18/18 21:00 09/18/18 21:30 Temperature Pulse Rate 76 79 80 Respiratory Rate 15 15 15 Blood Pressure 112/58 L 101/55 L 115/59 L Pulse Oximetry 100 100 100 09/18/18 21:35 09/18/18 22:00 09/18/18 22:30 Temperature Pulse Rate 80 80 Respiratory Rate 15 15 22 Blood Pressure 96/52 L 107/60 Pulse Oximetry 100 100 100 09/18/18 23:00 09/18/18 23:30 09/18/18 23:36 Temperature Pulse Rate 79 79 Respiratory Rate 17 17 15 Blood Pressure 93/55 L 129/66 Pulse Oximetry 100 100 100 09/18/18 23:37 09/19/18 00:00 09/19/18 00:30 Temperature 99.0 F Pulse Rate 77 78 80 Respiratory Rate 15 15 15 Blood Pressure 84/52 L 103/57 L Pulse Oximetry 100 100 09/19/18 01:00 09/19/18 01:30 09/19/18 02:00 Temperature Pulse Rate 79 79 80 Respiratory Rate 15 15 15 Blood Pressure 91/53 L 94/53 L 82/53 L Pulse Oximetry 100 100 100 09/19/18 02:03 09/19/18 02:30 09/19/18 03:00 Temperature Pulse Rate 80 79 79 Respiratory Rate 15 15 15 Blood Pressure 84/53 L 96/54 L 99/54 L Pulse Oximetry 100 100 100 09/19/18 03:27 09/19/18 03:28 09/19/18 03:30 Temperature Pulse Rate 78 77 Respiratory Rate 15 15 16 Blood Pressure 115/60 Pulse Oximetry 100 100 09/19/18 04:00 09/19/18 07:00 09/19/18 08:00 Temperature 100.1 F H 99.3 F Pulse Rate 78 80 81 Respiratory Rate 15 20 15 Blood Pressure 93/53 L 101/56 L Pulse Oximetry 100 100 09/19/18 08:28 09/19/18 10:00 09/19/18 10:36 Temperature Pulse Rate 82 84 Respiratory Rate 13 30 H Blood Pressure Pulse Oximetry 100 09/19/18 10:37 Temperature Pulse Rate Respiratory Rate 27 H Blood Pressure Pulse Oximetry 100 Intake & Output 09/18/18 09/19/18 09/19/18 18:59 06:59 18:59 Intake Total 556 / 556 723 / 723 Output Total 0 / 0 Balance 556 / 556 723 / 723 Weight 48 kg Intake: Tube Feeding 376 / 376 543 / 543 Tube Irrigant 180 / 180 180 / 180 Output: Urine 0 / 0 Other: Date of Last Bowel Movement 09/18/18 09/19/18 09/19/18 # Bowel Movements 1 Narrative: On the vent. Poorly responsive. Chest: vented breath sounds bilaterally, no rhonchi, no wheezing. Heart: RRR. 3/6 systolic murmur. No edema. s/p left BKA. Chronic ischemia right lower extremity. Assessment and Plan - Assessment (1) ESRD (end stage renal disease) Code(s): N18.6 - End stage renal disease Status: Deleted Plan: Dialysis MWF. Dialyzed today. K+ stable She is s/p repair/excision of infected pseudoaneurysm of AVF, with apparent interposition bovine graft. Fistula pseudo aneurysm grossly infected. Previous steal history - no apparent signs of steal at this point. Currently with non-tunneled HD catheter, will need to change to tunneled catheter when blood cultures clear. Dialysis done on Thursday, Vascath was removed. PermCath on Thursday if cultures are negative. Continue antibiotics as per ID. HD will be in the AM. Dr. Ahumada will follow from AM. ---- (2) Hyperkalemia Code(s): E87.5 - Hyperkalemia Status: Deleted Plan: Improved. . (3) Renal mass Code(s): N28.89 - Other specified disorders of kidney and ureter Status: Acute Plan: Renal mass has grown in size, most likely malignancy. Urology note reviewed, to follow up after discharge. (4) Severe sepsis Code(s): A41.9 - Sepsis, unspecified organism; R65.20 - Severe sepsis without septic shock Status: Deleted Plan: MRSA sepsis, endocarditis. MRI of the brain negative for septic emboli. She has mitral valve vegetation. On Vancomycin. s/p excision of infected pseudoaneurysm of AVF. (5) CAD (coronary artery disease) Code(s): I25.10 - Atherosclerotic heart disease of [place] coronary artery without angina pectoris Status: Deleted (6) PAD (peripheral artery disease) Code(s): I73.9 - Peripheral vascular disease, unspecified Status: Deleted Plan: s/p left BKA. Poor circulation of right lower extremity. Vascular surgery following. (7) DM2 (diabetes mellitus, type 2) Code(s): E11.9 - Type 2 diabetes mellitus without complications Status: Deleted Plan: maintain blood glucose between 140 and 180 while hospitalized.
[2018-09-19] MEDS ORDERED: Sodium Chlor 0.9% Inj 500 ML IV.SIG SCH (16:19)
[2018-09-19] MEDS ORDERED: Carboxymethylcellulose 0.5% Opth Drops 15 ML Bottle EACH EYE SCH (21:00)
[2018-09-19] MEDS: Artificial Tears Opth Drops 15 ML Bottle EACH EYE SCH (21:32)
[2018-09-20] MEDS: Insulin NovoLIN Regular Correctional Sugar Inj SQ SCH ×4 (00:32→18:08)
[2018-09-20 05:09] LABS: Hematocrit 27.4 % (35.0-46.0); Hemoglobin 8.8 gm/dL (11.6-15.3); Mean Corpuscular HGB Conc 32.3 % (32.0-36.0); Mean Corpuscular Hemoglobin 26.6 pg (27.0-34.0); Mean Corpuscular Volume 82.5 fL (80.0-100.0); Mean Platelet Volume 10.2 fL (7.0-11.0); Platelet Count 212 th/mm3 (150-450); Red Blood Count 3.32 mil/mm3 (4.00-5.30); Red Cell Distribution Width 18.7 % (11.6-17.2); White Blood Count 9.2 th/mm3 (4.0-11.0)
[2018-09-20] MEDS: Heparin - SQ 10,000 UNITS/ML Vial SQ SCH ×2 (05:09→19:50)
[2018-09-20 05:32] LABS: Calcium 7.8 mg/dL (8.5-10.1); Carbon Dioxide 29.5 meq/L (21.0-32.0); Magnesium 2.5 mg/dL (1.5-2.5); Potassium 3.6 meq/L (3.5-5.1)
[2018-09-20 05:37] LABS: Phosphorus 3.9 mg/dL (2.5-4.9)
[2018-09-20] MEDS: Famotidine 20 MG Tablet PO SCH ×2 (08:31→20:12)
[2018-09-20] MEDS: Artificial Tears Opth Drops 15 ML Bottle EACH EYE SCH ×2 (08:32→20:13)
[2018-09-20] MEDS: Senna/Docusate Sodium 8.6/50 MG Tablet PO SCH ×2 (08:32→20:12)
--- NOTE | 2018-09-20 11:40 | P.PNNP ---
Subjective Interval history: on the ventilator. She is able to follow verbal cues. Physical Exam Vital signs: Vital Signs 09/19/18 12:00 09/19/18 14:00 09/19/18 15:58 Temperature 99.9 F H Pulse Rate 78 79 78 Respiratory Rate 12 16 Blood Pressure 114/57 L Pulse Oximetry 09/19/18 15:59 09/19/18 16:00 09/19/18 18:00 Temperature 100.1 F H Pulse Rate 78 78 Respiratory Rate 15 16 Blood Pressure 95/54 L Pulse Oximetry 100 09/19/18 19:25 09/19/18 19:27 09/19/18 20:00 Temperature 100.4 F H Pulse Rate 79 81 Respiratory Rate 15 15 16 Blood Pressure 105/55 L Pulse Oximetry 100 100 09/19/18 23:28 09/19/18 23:50 09/20/18 00:00 Temperature 100.4 F H Pulse Rate 80 82 Respiratory Rate 15 15 16 Blood Pressure 127/58 L Pulse Oximetry 100 09/20/18 02:34 09/20/18 03:30 09/20/18 03:42 Temperature Pulse Rate 80 83 Respiratory Rate 15 15 Blood Pressure Pulse Oximetry 100 09/20/18 04:00 09/20/18 07:20 09/20/18 08:00 Temperature 100.6 F H 99.9 F H Pulse Rate 81 79 80 Respiratory Rate 16 15 16 Blood Pressure 114/59 L 116/59 L Pulse Oximetry 100 99 09/20/18 09:54 09/20/18 11:12 Temperature Pulse Rate 86 Respiratory Rate 15 15 Blood Pressure Pulse Oximetry 100 Intake & Output 09/19/18 09/20/18 09/20/18 18:59 06:59 18:59 Intake Total 1163 / 1163 531 / 531 Balance 1163 / 1163 531 / 531 Weight 50.5 kg Intake: IV 500 / 500 NS Inj 500 ML @ Wide Open IV. 500 / 500 SIG BOLUS RAFAEL Rx#:[id number] Tube Feeding 543 / 543 471 / 471 Tube Irrigant 60 / 60 Other 120 / 120 Other: # Incontinent Voids 0 Date of Last Bowel Movement 09/19/18 09/19/18 09/19/18 # Incontinent Bowel Movements 1 Narrative: On the vent. Opens eyes, able to cotton cleaner my hand. Follows verbal cues. Chest: vented breath sounds bilaterally, no rhonchi, no wheezing. Heart: RRR. 3/6 systolic murmur. No edema. s/p left BKA. Chronic ischemia right lower extremity. Assessment and Plan - Assessment (1) ESRD (end stage renal disease) Code(s): N18.6 - End stage renal disease Status: Deleted Plan: Dialysis MWF. Dialysis today. She is s/p repair/excision of infected pseudoaneurysm of AVF, with apparent interposition bovine graft. Fistula pseudo aneurysm grossly infected. Previous steal history - no apparent signs of steal at this point. We will have VasCath removed today after dialysis, PermCath placement. Cultures have been negative. ---- (2) Hyperkalemia Code(s): E87.5 - Hyperkalemia Status: Deleted Plan: Improved. . (3) Renal mass Code(s): N28.89 - Other specified disorders of kidney and ureter Status: Acute Plan: Renal mass has grown in size, most likely malignancy. Urology note reviewed, to follow up after discharge. Previously the patient had refused workup. (4) Severe sepsis Code(s): A41.9 - Sepsis, unspecified organism; R65.20 - Severe sepsis without septic shock Status: Deleted Plan: MRSA sepsis, endocarditis. MRI of the brain negative for septic emboli. She has mitral valve vegetation. On Vancomycin. s/p excision of infected pseudoaneurysm of AVF. (5) CAD (coronary artery disease) Code(s): I25.10 - Atherosclerotic heart disease of [place] coronary artery without angina pectoris Status: Deleted (6) PAD (peripheral artery disease) Code(s): I73.9 - Peripheral vascular disease, unspecified Status: Deleted Plan: s/p left BKA. Poor circulation of right lower extremity. Vascular surgery following. (7) DM2 (diabetes mellitus, type 2) Code(s): E11.9 - Type 2 diabetes mellitus without complications Status: Deleted Plan: maintain blood glucose between 140 and 180 while hospitalized.
--- NOTE | 2018-09-20 12:34 | P.PNVS ---
Subjective Subjective/Hospital Course: intubated, opens eyes to voice doesn't appear to be in any distress Objective Vital Signs / I&O: Vital Signs 09/19/18 14:00 09/19/18 15:58 09/19/18 15:59 Temperature Pulse Rate 79 78 Respiratory Rate 16 15 Blood Pressure Pulse Oximetry 100 09/19/18 16:00 09/19/18 18:00 09/19/18 19:25 Temperature 100.1 F H Pulse Rate 78 78 Respiratory Rate 16 15 Blood Pressure 95/54 L Pulse Oximetry 100 09/19/18 19:27 09/19/18 20:00 09/19/18 23:28 Temperature 100.4 F H Pulse Rate 79 81 80 Respiratory Rate 15 16 15 Blood Pressure 105/55 L Pulse Oximetry 100 09/19/18 23:50 09/20/18 00:00 09/20/18 02:34 Temperature 100.4 F H Pulse Rate 82 80 Respiratory Rate 15 16 15 Blood Pressure 127/58 L Pulse Oximetry 100 09/20/18 03:30 09/20/18 03:42 09/20/18 04:00 Temperature 100.6 F H Pulse Rate 83 81 Respiratory Rate 15 16 Blood Pressure 114/59 L Pulse Oximetry 100 09/20/18 07:20 09/20/18 08:00 09/20/18 09:54 Temperature 99.9 F H Pulse Rate 79 80 Respiratory Rate 15 16 15 Blood Pressure 116/59 L Pulse Oximetry 100 99 100 09/20/18 11:12 Temperature Pulse Rate 86 Respiratory Rate 15 Blood Pressure Pulse Oximetry Intake & Output 09/19/18 09/20/18 09/20/18 18:59 06:59 18:59 Intake Total 1163 / 1163 531 / 531 Balance 1163 / 1163 531 / 531 Weight 50.5 kg Intake: IV 500 / 500 NS Inj 500 ML @ Wide Open IV. 500 / 500 SIG BOLUS [facility] Rx#:[id number] Tube Feeding 543 / 543 471 / 471 Tube Irrigant 60 / 60 Other 120 / 120 Other: # Incontinent Voids 0 Date of Last Bowel Movement 09/19/18 09/19/18 09/19/18 # Incontinent Bowel Movements 1 Physical Exam: Left upper extremity wound healing appropriately. Right foot dry gangrene with no signs of infection Laboratory Results - last 24 hr 09/19/18 09/20/18 09/20/18 17:40 00:11 04:05 WBC RBC Hgb Hct MCV MCH MCHC RDW Plt Count MPV Sodium 138 Potassium 3.6 Chloride 95 L Carbon Dioxide 29.5 Anion Gap 14 BUN 59 H Creatinine 5.31 H Estimated GFR 10 L POC Glucose 110 129 H Random Glucose 210 H Calcium 7.8 L Phosphorus 3.9 Magnesium 2.5 09/20/18 09/20/18 09/20/18 04:06 05:08 11:22 WBC 9.2 RBC 3.32 L Hgb 8.8 L Hct 27.4 L MCV 82.5 MCH 26.6 L MCHC 32.3 RDW 18.7 H Plt Count 212 MPV 10.2 Sodium Potassium Chloride Carbon Dioxide Anion Gap BUN Creatinine Estimated GFR POC Glucose 247 H 154 H Random Glucose Calcium Phosphorus Magnesium Assessment and Plan - Assessment (1) Abscess of upper extremity Code(s): L02.419 - Cutaneous abscess of limb, unspecified Status: Acute (2) Toxic metabolic encephalopathy Code(s): G92 - Toxic encephalopathy Status: Deleted (3) Severe sepsis Code(s): A41.9 - Sepsis, unspecified organism; R65.20 - Severe sepsis without septic shock Status: Deleted (4) PAD (peripheral artery disease) Code(s): I73.9 - Peripheral vascular disease, unspecified Status: Deleted - Plan Left upper extremity abscess, infected hematoma. S/P excision of infected PSA. looks great, incision healing Right lower extremity peripheral vascular disease dry gangrene, likely failed intervention from months ago no other revascularization options - needs AKA vs BKA LBKA stump will need revision in the future, conversion to AKA None of her wounds appear infected - only dry gangrene This patient has a very poor outcome and palliative care should be considered
[2018-09-20 13:14] LABS: Activated Partial Thrombo Time 22.5 sec (24.3-30.1); INR 1.2 Ratio
--- NOTE | 2018-09-20 13:27 | P.PNCC ---
Subjective Subjective Remarks/Hospital Course: No history is obtainable from the patient due to altered mental status. All history obtained from chart review and discussion with ED attending. Patient is a 58-year-old -[place] female with past medical history of type 2 diabetes, hypertension, hyperlipidemia, ESRD on HD M/W/F, CHF Echo 03/22/07 EF 30 -35%, CAD, s/p LAD stent 06/08, status post left BKA. Patient was brought to the emergency department by EMS for altered mental status. Apparently patient was found lying on the floor between 2 dressers, missed two dialysis appointments. CT of the head was negative for acute findings chest x-ray showed pulmonary vascular congestion, left lower lobe atelectasis. CT abdomen pelvis showed large 6.2 cm renal mass which has grown in size since last scan in Nov 2017, and suspicious for renal cell carcinoma. Her WBC count was 23.4 with left shift, with altered mental status this was most likely secondary to severe sepsis. Patient was empirically given vancomycin and Zosyn in the ED after getting blood cultures. Also her potassium was 6.3 patient is receiving bicarb now and nephrology had been contacted for stat dialysis I evaluated the patient in the emergency department. Patient is very lethargic encephalopathic. She mumbles a few words but did not follow commands. Even though very lethargic at this point she is protecting airway. In addition to IV bicarb I will also give 5 units of insulin and IV dextrose. Antibiotics will be continued-renally dosed vancomycin and Zosyn. Will request nephrology and urology consult. At this time critically ill with severe sepsis. 09/07: Patient is lying in bed mental status seems to be improved alert oriented x2 today. Potassium is 5.3 chest x-ray shows pulmonary edema. Will request for repeat hemodialysis today 09/13: Rapid response team activated for patient hypotension and hypoxemia. After transfer to ICU I have found patient in agonal breathing and immediately intubated her with 7.5 ET tube. Shortly after intubation the patient was pulseless and 1 cycle of CPR was performed including one injection of epinephrine, chest compressions, and sodium bicarbonate injections. Family notified about the critical condition. 09/14: Remains encephalopathic, orally intubated on mechanical ventilation. 09/15: More awake, opening eyes, squeezing my fingers with her hands on command. Remains orally intubated on mechanical ventilation. 09/16: clinically improving. following commands. on PSV 15/5/40%. HD yesterday with good volume removal. 09/17: still failing SBTs- going apneic into back-up mode. will attempt again today. likely will need HD again today. still following commands. 09/18: During CPAP trials. T-max 100.5 currently 100. -3 L with hemodialysis. Arousable and follows commands. 09/19: T-max 100.6. Currently 100.1. Appears comfortable on PSV trial. Lasted greater than 9 hours 09/18 tolerating tube feeds. White blood cell count is normalized. Subjective 09/20: T-max 100.6. Remains on CPAP trial. Lasted for hours yesterday. Palliative care discussed with family possible right [id number] amputation. Hemodialysis catheter should be removed after dialysis today. Arousable while on the ventilator Objective Vital Signs / I&O: Vital Signs 09/19/18 14:00 09/19/18 15:58 09/19/18 15:59 Temperature Pulse Rate 79 78 Respiratory Rate 16 15 Blood Pressure Pulse Oximetry 100 09/19/18 16:00 09/19/18 18:00 09/19/18 19:25 Temperature 100.1 F H Pulse Rate 78 78 Respiratory Rate 16 15 Blood Pressure 95/54 L Pulse Oximetry 100 09/19/18 19:27 09/19/18 20:00 09/19/18 23:28 Temperature 100.4 F H Pulse Rate 79 81 80 Respiratory Rate 15 16 15 Blood Pressure 105/55 L Pulse Oximetry 100 09/19/18 23:50 09/20/18 00:00 09/20/18 02:34 Temperature 100.4 F H Pulse Rate 82 80 Respiratory Rate 15 16 15 Blood Pressure 127/58 L Pulse Oximetry 100 09/20/18 03:30 09/20/18 03:42 09/20/18 04:00 Temperature 100.6 F H Pulse Rate 83 81 Respiratory Rate 15 16 Blood Pressure 114/59 L Pulse Oximetry 100 09/20/18 07:20 09/20/18 08:00 09/20/18 09:54 Temperature 99.9 F H Pulse Rate 79 80 Respiratory Rate 15 16 15 Blood Pressure 116/59 L Pulse Oximetry 100 99 100 09/20/18 11:12 09/20/18 12:49 Temperature Pulse Rate 86 Respiratory Rate 15 15 Blood Pressure Pulse Oximetry 100 Intake & Output 09/19/18 09/20/18 09/20/18 18:59 06:59 18:59 Intake Total 1163 / 1163 531 / 531 Balance 1163 / 1163 531 / 531 Weight 50.5 kg Intake: IV 500 / 500 NS Inj 500 ML @ Wide Open IV. 500 / 500 SIG BOLUS [facility] Rx#:[id number] Tube Feeding 543 / 543 471 / 471 Tube Irrigant 60 / 60 Other 120 / 120 Other: # Incontinent Voids 0 Date of Last Bowel Movement 09/19/18 09/19/18 09/19/18 # Incontinent Bowel Movements 1 Result Diagrams: 09/20/18 04:06 09/20/18 04:05 Other Results: Microbiology 09/09/18 11:20 Wound - Arm Fungal Smear - Final No fungal elements seen 09/09/18 11:20 Wound - Arm Fungal Culture - Preliminary No growth in 1 week 09/09/18 11:20 Wound - Arm Acid Fast Bacilli Smear - Final No acid fast bacilli seen 09/09/18 11:20 Wound - Arm Mycobacterial Culture - Preliminary No growth in 1 week 09/11/18 08:30 Blood - Peripheral Aerobic Blood Culture - Final No growth in 5 days 09/11/18 08:30 Blood - Peripheral Anaerobic Blood Culture - Final QNS - See aerobic report. 09/11/18 08:39 Blood - Peripheral Aerobic Blood Culture - Final No growth in 5 days 09/11/18 08:39 Blood - Peripheral Anaerobic Blood Culture - Final No growth in 5 days 09/09/18 03:55 Blood - Peripheral Aerobic Blood Culture - Final S. aureus MRSA 09/09/18 03:55 Blood - Peripheral Anaerobic Blood Culture - Final S. aureus MRSA 09/09/18 03:47 Blood - Peripheral Aerobic Blood Culture - Final S. aureus MRSA 09/09/18 03:47 Blood - Peripheral Anaerobic Blood Culture - Final S. aureus MRSA 09/09/18 11:20 Wound - Arm Gram Stain - Final 09/09/18 11:20 Wound - Arm Wound Culture - Final S. aureus MRSA 09/06/18 11:20 Blood - Peripheral Aerobic Blood Culture - Final S. aureus MRSA 09/06/18 11:20 Blood - Peripheral Anaerobic Blood Culture - Final S. aureus MRSA 09/06/18 11:28 Blood - Peripheral Aerobic Blood Culture - Final S. aureus MRSA 09/06/18 11:28 Blood - Peripheral Anaerobic Blood Culture - Final S. aureus MRSA Imaging: Abdomen/Pelvis CT 09/06/18 11:10 CONCLUSION: 1. Moderate stool in the rectum. No dilated loops of bowel to suggest obstruction. 2. Persistent large solid mass arising from the superior pole the right kidney measuring up to 6.2 cm. This is a renal cell carcinoma until proven otherwise. 3. End-stage appearing kidneys bilaterally. 4. Prominent diffuse vascular calcifications. Chest X-Ray 09/06/18 11:10 CONCLUSION: 1. Cardiomegaly with positive fluid balance. 2. Minimal left lung base airspace disease, presumably atelectasis. Head CT 09/06/18 11:10 CONCLUSION: 1. Atrophy and atherosclerosis. . Chest X-Ray 09/07/18 06:00 CONCLUSION: Cardiomegaly and findings of congestive heart failure. There has been no significant change when compared to the prior exam. Head MRI 09/08/18 00:00 CONCLUSION: 1. No acute findings. No recent infarct. Mild chronic white matter ischemic changes in the periventricular region. Upper Extremity Ultrasound 09/09/18 00:00 CONCLUSION: Mixed echogenicity collection around the proximal fistula outflow in the medial left upper arm. Arterial Ultrasound 09/10/18 00:00 CONCLUSION: 1. Right iliofemoral and femoral popliteal bypass grafts appear to be occluded. 2. Occlusion of the [place] superficial femoral and popliteal arteries. Proximal trifurcation vessels also appear to be occluded. 3. Monophasic signal in the right external iliac, common femoral and profunda femoral arteries. 4. CTA abdomen and runoff could be performed for anatomic characterization if clinically warranted. Catheter Placement 09/10/18 00:00 CONCLUSION: 1. Uncomplicated line placement as above. The patient has an occluded right internal jugular vein. This catheter was placed in the external jugular vein. Extremity Arterial Study 09/10/18 00:00 CONCLUSION: 1. Findings discerning for significant right lower extremity ischemia and likely occlusion of the right femoral to popliteal bypass graft with nearly flat waveforms and unobtainable pressures. 2. Status post left BKA. Tibia/Fibula X-Ray 09/13/18 00:00 CONCLUSION: 1. Status post below the knee amputation. 2. No evidence to suggest osteomyelitis. 3. Possible soft tissue erosion at the base of the amputation. Head CT 09/13/18 06:22 CONCLUSION: 1. No acute intracranial abnormality. 2. Progressive right maxillary sinus mucosal disease. . Chest X-Ray 09/13/18 06:44 CONCLUSION: 1. ETT 4 mm above the valeria. 2. Right IJ dialysis catheter in good position. 3. Persistent positive fluid balance. 4. Mild left lung base atelectasis/scarring. Head MRI 09/14/18 00:00 CONCLUSION: Chronic small vessel ischemic and atrophic changes. Chest X-Ray 09/17/18 05:00 CONCLUSION: Prominence of the central pulmonary vessels, stable from prior. No parenchymal infiltrates seen. Objective Remarks: GENERAL: 58-year-old AA female, lying in bed intubated. SKIN: Warm and dry. No rash HEAD: Atraumatic. Normocephalic. EYES: Pupils equal and round, 2 mm reactive. No scleral icterus. ENT: No nasal bleeding or discharge. Mucous membranes moist NECK: Trachea midline. No JVD. CARDIOVASCULAR: RRR. S1, S2. No S4. 2/6 murmur systolic. RESPIRATORY: On mechanical ventilation, equal chest rise. Currently on PSV trials GASTROINTESTINAL: Abdomen soft, non-tender, nondistended. MUSCULOSKELETAL: AV fistula in left upper arm with palpable thrill. s/p L BKA NEUROLOGICAL: awake, alert, follows commands. Assessment and Plan - Assessment and Plan Plan: NEURO/PSYCH: Toxic metabolic encephalopathy- improving. History of peripheral neuropathy History of glaucoma Avoid any sedating medication CT head negative for bleed. Encephalopathy most likely from metabolic causes/sepsis. EEG generalized slowing 09/15 MRI brain 09/15 no acute disease. Neurology has followed RESP: Acute hypoxic and hypercarbic Respiratory failure Pulmonary edema Currently on PSV trial. PRVC overnight Albuterol/ipratropium aerosols every 4 hours with albuterol aerosols every 2 hours as needed dyspnea Continue mechanical ventilation and ventilator bundle continue SBTs today wean fio2 for goal spo2 > 90% Chest x-ray in a.m. 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 Ramirez 11/26/17 Peripheral arterial disease Hypertension Dyslipidemia Continue baby aspirin 81 mg daily severe MR continues to require volume removal. HD per nephrology. Currently not requiring vasopressors and her anti-pretenses Cardiogram revealed EF of 30%. PAP 57 mmHg. Severe TR. [place] mitral valve mass. Will need right above or below the knee dictation to lower extremity. Palliative care consult to discuss with family options. Patient did not but her wishes known prior to intubation. GI: Acute protein calorie malnutrition- severe Continue 10 mg twice daily PO famotidine Tolerating Nepro tube feeds at 40 cc an hour per nutrition recommendation. Docusate sodium/senna twice daily for bowel regimen FEN/RENAL: ESRD Large right renal mass suspicious for renal cell carcinoma Hemodialysis Thursday/Thursday/Thursday per nephrology, Dr Ahumada. Urology consulted for right renal mass (previously refused work up) Sevelamer 1600 mg 3 times daily for hyperphosphatemia ID: Severe sepsis- resolved [place] Mitral Valve infective endocarditis Source of sepsis: mitral valve endocarditis IV vancomycin per ID Dr. Dowd HEME: Anemia of chronic kidney disease Monitor CBC daily. Follow trends. No indication for blood transfusion at this time ENDO: Diabetes mellitus, type II med-dose insulin sliding scale q6h PROPH: Heparin 5000 subcutaneous every 12 for DVT prophylaxis. PO famotidine ACCESS: Right groin central line 09/13/2018-to be discontinued 09/15 Discontinue right IJ hemodialysis catheter 09/20 after hemodialysis piv Level 2 follow-up
[2018-09-20] MEDS: Heparin 10,000 UNITS/10 ML Vial (for IV use) OTHER PRN (13:32)
[2018-09-20] MEDS: Albumin Human 25% Inj 100 ML IV.SIG PRN (13:32)
[2018-09-20] MEDS: Vancomycin Inj 1,250 MG in Sodium Chlor 0.9% Inj 250 ML IV.SIG SCH (14:14)
--- NOTE | 2018-09-20 16:17 | P.CONPAL ---
Consult Service: Palliative Care Requesting Physician: Tr Bay Reason for Consult: a. To assist with evaluation and management of symptoms including: pain, debility b. To assist medical decision maker(s) with: better understanding of current medical conditions; weighing benefits/burdens of medical treatment options; making medical treatment decisions. Primary Care Provider: No Primary Care Physician History of Present Illness History of Present Illness: Ms. Moraes is a 58-year-old -Israeli female with past medical history of type 2 diabetes, hypertension, hyperlipidemia, ESRD on HD M/W/F, CHF Echo EF 30-35%, CAD, s/p LAD stent 06/08, status post left BKA. She presented to [place] ED on 09/06/2018 via EMS for evaluation of altered mental status. Apparently the patient was found in her home lying on the floor after missing 2 dialysis appointments. Diagnostic data: * Vital signs: Pulse 81, respirations 20, BP 145/75, oxygen saturation 100% on room air, oral temperature 97.6 * CT head revealed no acute findings * Chest x-ray showed pulmonary vascular congestion, left lower lobe atelectasis. * CT abdomen/pelvis showed a large 6.2 cm renal mass which has increased in size since the last scan in 11/2017 and is suspicious for renal cell carcinoma * Patient's WBC was 23.4 with left shift * Sodium: 137, potassium 6.3, chloride 100, carbon dioxide 21.7, glucose 221, calcium 8.5, phosphorus 8.9, magnesium 2.3 * Lactic acid: 1.7 * BUN: 83, creatinine 9.31, GFR 5 * Total bilirubin: 1.0, AST 55, ALT 27, alkaline phosphatase 356 * Ammonia: 16 * Total creatine kinase: 604 * CK-MB: 21.5 * Troponin: 0.53 * Total protein: 7.2, albumin 1.9 Patient was admitted with severe sepsis. She received Vancomycin and Zosyn in the ED after blood cultures were drawn. Patient's potassium was elevated at 6.3. Patient received IV bicarb, 5 units insulin and IV dextrose. Nephrology and urology were consulted. Urology recommended the patient follow-up with Dr. Perera outpatient when her overall medical condition improves for the duration of nonemergent right radical nephrectomy. Infectious disease was consulted for management of MRSA bacteremia and sepsis. Echocardiogram identified in the endocarditis as the primary source of infection. Vascular surgery was consulted to evaluate the patient's right lower extremity status post revascularization with Dr. Ramirez. There were no clinical signs of acute limb ischemia noted, however both grafts appear to be occluded on ultrasound. Patient was taken to the OR secondary to infected left upper extremity AVF pseudoaneurysm with contained rupture and adherent clot. The pseudoaneurysm was removed and the AVF was revised. The abscess was drained; cultures sent to microbiology for negative. Patient later went for Vas-Cath placement. Rapid response was called on 09/13/2018 when the patient hypoxemic and hypotensive. She was transferred to the ICU and emergently intubated. Shortly after intubation patient became pulseless, receiving 1 cycle of CPR with epinephrine and bicarb injections x1. EEG on 09/15/2018 showed diffuse slowing consistent with moderate diffuse encephalopathy; no focal ab normality's were noted. No seizure activity was seen. MRI of the brain showed no acute disease process. Neurology following. Ischemia and right lower extremity has worsened. Vascular surgery continues to follow. Patient will need right AKA versus BKA secondary to severe peripheral vascular disease of the right lower extremity. Dry gangrene - likely failed intervention from months ago. No other revascularization options are available. Left BKA stump will need revision in the future, likely conversion to AKA. Palliative Care was consulted to assist with symptom management and to discuss with the family the benefits and burdens of her current illnesses and the options regarding future care. Patient had just completed HD on exam. She was lethargic, answered a few simple questions by nodding/shaking her head before falling asleep. Palliative care spoke with the patient's sister (Micaela Bhatt ) via telephone. She reports her sister was very private and independent stating "We didn't even know her leg was gone until she got out of the hospital. " She verbalizes aggressive goals stating her sister never talked to her about what her medical treatment goals would be in this situation. . Function/Cognitive Trajectory: Patient is a frail 58 yo female with a complex medical history s/p left BKA. Her sister states she was living in he home alone when she was found down after missing 2 dialysis treatments on 09/06/2018. She reports her sister is private, and they didn't know her leg had been amputated until the patient returned home. Her family does not feel she can live safely alone anymore. Notes indicate the patient had aggreed to rehab, however the patient's sister states she always "checks herself out of rehab." Review of Systems unobtainable due to endotracheal tube PMFSH - History History Provided By: Family Member, Medical Record - Medical History Medical History: Medical History (Last Updated 09/20/18 @ 16:23 by MER Schmitz) A-V fistula History of hepatitis C MDRO (multiple drug resistant organisms) resistance Onset Date: ~09/06/18 Rheumatoid arthritis Diabetes Dialysis patient Gangrene - Surgical History Surgical History: Surgical History (Last Updated 09/20/18 @ 16:22 by MER Schmitz) History of hysterectomy (Acute) Below knee amputation status History of section - Family History Family History: Family History (Last Updated 09/20/18 @ 16:25 by MER Schmitz) Other Family history of CHF (congestive heart failure) Family history of diabetes mellitus Family history of renal disease - Social History I have reviewed the patient's Social History: Yes - Tobacco History Second Hand Smoke Exposure: No Smoking Status: Never smoker - Alcohol History How Often Do You Have a Drink Containing Alcohol: Never - Substance Use History Substance History: No History of Abuse - Travel History Recent Travel in the [place] Within the Last 8 Weeks: No Recent Travel Out of the Country Within the Last 8 Weeks: No - Immunization History Tetanus Immunization: Unable to Assess Hx Influenza Vaccine This Season: Yes Medications and Allergies Active Medications: Active Medications Acetaminophen (Tylenol) 650 mg PO Q6H PRN PRN Reason: PAIN 1-10 AND/OR FEVER >101F Last Admin: 09/16/18 23:08 Dose: 650 mg Acetaminophen (Tylenol) 650 mg PO UNSCH PRN PRN Reason: SEE LABEL COMMENTS Hydrocodone Bitart/Acetaminophen ([place] 5/325) 1 tab PO Q4H PRN PRN Reason: PAIN SCALE 4 TO 6 MODERATE Last Admin: 09/19/18 05:49 Dose: 1 tab Al Hydroxide/Mg Hydroxide (Milk Of Magnarturo Liq) 30 ml PO Q12H PRN PRN Reason: Mild Constipation Albuterol (Albuterol Neb (Prn)) 2.5 mg NEB Q2HR NEB PRN PRN Reason: SHORTNESS OF BREATH/WHEEZING Albuterol (Duoneb Neb (Diamond)) 1 ampul NEB Q4HR NEB [facility] Last Admin: 09/20/18 14:58 Dose: 1 ampul Artificial Tears (Tears Naturale Opth Drops) 1 drop EACH EYE BID [facility] Last Admin: 09/20/18 08:32 Dose: 1 drop Bisacodyl (Dulcolax Supp) 10 mg RECTAL DAILY PRN PRN Reason: SEVERE CONSITIPATION Clonidine HCl (Catapres) 0.1 mg PO UNSCH PRN PRN Reason: SEE LABEL COMMENTS Dextrose (D50w Vial) 50 ml IV.PUSH UNSCH PRN PRN Reason: PER HYPOGLYCEMIA PROTOCOL Last Admin: 09/16/18 17:13 Dose: 50 ml Diphenhydramine HCl (Benadryl) 25 mg PO UNSCH PRN PRN Reason: SEE LABEL COMMENTS Famotidine (Pepcid) 10 mg PO BID [facility] Last Admin: 09/20/18 08:31 Dose: 10 mg Gelatin (Gelfoam 12 Mm/7 Mm Topical) 1 foam TOPICAL PRN PRN PRN Reason: help stop bleeding from site Last Admin: 09/06/18 15:02 Dose: 1 foam Gentamicin Sulfate (Gentamicin Inj) 20 mg OTHER WITH DIALYSIS PRN PRN Reason: Dwell Gentamycin Lock Last Admin: 09/20/18 13:33 Dose: 20 mg Glucagon (Glucagon Inj) 1 mg OTHER PRN PRN PRN Reason: for Hypoglycemia Protocol Heparin Sodium (Porcine) (Heparin Inj) 1,000 units OTHER WITH DIALYSIS PRN PRN Reason: Dwell Heparin to Fill Catheter Last Admin: 09/20/18 13:32 Dose: 1,000 units Heparin Sodium (Porcine) (Heparin Inj) 5,000 units SQ Q12H [facility] Last Admin: 09/20/18 05:09 Dose: 5,000 units Heparin Sodium (Porcine) (Heparin Inj) 8,000 units OTHER WITH DIALYSIS PRN PRN Reason: for machine prime Heparin Sodium (Porcine) (Heparin Central Flush) 0 unit IV.FLUSH DAILY PRN PRN Reason: SEE DOSE INSTRUCTIONS Albumin Human (Flexbumin 25% Inj) 100 mls @ 60 mls/hr IV.SIG WITH DIALYSIS PRN PRN Reason: hypotension / volume replace Last Infusion: 09/20/18 14:00 Dose: Infused Sodium Chloride (Ns Inj) 1,000 mls @ 0 mls/hr OTHER .Q0M PRN PRN Reason: for prime and rinse back Last Infusion: 09/06/18 19:00 Dose: 0 mls/hr Sodium Chloride (Ns Inj) 1,000 mls @ 200 mls/hr OTHER .Q5H PRN PRN Reason: for dialyzer flush PRN Sodium Chloride (Ns Inj) 1,000 mls @ 0 mls/hr IV.CONT .Q0M PRN PRN Reason: hypotension / volume replace Vancomycin HCl 1,250 mg/ (Sodium Chloride) 262.5 mls @ 250 mls/hr IV.SIG WITH DIALYSIS [facility] Last Admin: 09/20/18 14:14 Dose: 250 mls/hr Sodium Chloride (Ns Inj) 500 mls @ 0 mls/hr IV.SIG BOLUS [facility] Last Infusion: 09/19/18 17:10 Dose: Infused Insulin Human Regular (Novolin R Correctional Sugar Inj) 0 units SQ Q6HR [facility]; Protocol Last Admin: 09/20/18 12:00 Dose: 2 units Lactulose (Lactulose Liq) 30 ml PO DAILY PRN PRN Reason: SEVERE CONSITIPATION Mannitol (Mannitol Inj) 12.5 gm IV.PUSH UNSCH PRN PRN Reason: hypotension / volume replace Miscellaneous (Pill Splitter) 1 each OTHER UNSCH [facility] Morphine Sulfate (Morphine Inj) 2 mg IV.PUSH Q4H PRN PRN Reason: PAIN 6-10;IF UNABLE TO TAKE PO Last Admin: 09/19/18 12:02 Dose: 2 mg Mupirocin (Bactroban 2% Oint) 1 applicatio TOPICAL BID [facility] Last Admin: 09/20/18 08:32 Dose: 1 applicatio Nitroglycerin (Nitrostat Sl) 0.4 mg SL Q5M PRN PRN Reason: CHEST PAIN Senna/Docusate Sodium (Elsy-Colace) 1 tab PO BID [facility] Last Admin: 09/20/18 08:32 Dose: 1 tab Sennosides (Senokot) 17.2 mg PO Q12H PRN PRN Reason: Moderate Constipation Sevelamer Carbonate (Renvela) 1,600 mg PO TIDAC [facility] Last Admin: 09/20/18 12:00 Dose: 1,600 mg Sodium Chloride (Ns Flush) 5 ml IV.FLUSH PRN PRN PRN Reason: flush each lumen during HD Sodium Chloride (Ns Flush) 2 ml IV.FLUSH BID DIAMOND Last Admin: 09/20/18 08:33 Dose: 2 ml Sodium Chloride (Ns Flush) 2 ml IV.FLUSH PRN PRN PRN Reason: FLUSH AFTER USING IV ACCESS Last Admin: 09/14/18 08:55 Dose: 2 ml Allergies Allergy/AdvReac Type Severity Reaction Status Date / Time latex Allergy Severe Edema Unverified 09/06/18 11:19 Home Medications Medication Instructions Recorded Confirmed Type Unable to Obtain Home Meds 09/06/18 09/06/18 History Advance Directives Family/friends goals: Patient's sister stated they had not talked about what she her medical treatment goals might be in this situation. Aggressive goals pending further conversations and attempts to identify the legal HCP decision-maker. Physical Exam Vital Signs: Vital Signs - 24 hr 09/19/18 15:58 09/19/18 15:59 09/19/18 16:00 Temperature 100.1 F H Pulse Rate 78 78 Respiratory Rate 16 15 16 Blood Pressure 95/54 L Pulse Oximetry 100 09/19/18 18:00 09/19/18 19:25 09/19/18 19:27 Temperature Pulse Rate 78 79 Respiratory Rate 15 15 Blood Pressure Pulse Oximetry 100 09/19/18 20:00 09/19/18 23:28 09/19/18 23:50 Temperature 100.4 F H Pulse Rate 81 80 Respiratory Rate 16 15 15 Blood Pressure 105/55 L Pulse Oximetry 100 100 09/20/18 00:00 09/20/18 02:34 09/20/18 03:30 Temperature 100.4 F H Pulse Rate 82 80 Respiratory Rate 16 15 15 Blood Pressure 127/58 L Pulse Oximetry 100 09/20/18 03:42 09/20/18 04:00 09/20/18 07:20 Temperature 100.6 F H Pulse Rate 83 81 79 Respiratory Rate 16 15 Blood Pressure 114/59 L Pulse Oximetry 100 09/20/18 08:00 09/20/18 09:54 09/20/18 11:12 Temperature 99.9 F H Pulse Rate 80 86 Respiratory Rate 16 15 15 Blood Pressure 116/59 L Pulse Oximetry 99 100 09/20/18 12:49 09/20/18 15:00 Temperature Pulse Rate 86 Respiratory Rate 15 17 Blood Pressure Pulse Oximetry 100 I&O: Intake & Output 09/18/18 09/19/18 09/20/18 09/21/18 06:59 06:59 06:59 06:59 Intake Total 1271.5 / 1271.5 1279 / 1279 1694 / 1694 100 / 100 Output Total 3000 / 3000 0 / 0 Balance -1728.5 / -1728.5 1279 / 1279 1694 / 1694 100 / 100 Weight 49.5 kg 48 kg 50.5 kg Physical Exam: CONSTITUTIONAL/GENERAL: This is a frail female patient currently intubated on mech vent. TUBES/LINES/DRAINS: AVF, PIV, Vas-Cath, ETT, OGT SKIN: No jaundice, rashes, or lesions. Ecchymoses on upper extremities. No wounds seen anteriorly. Skin temperature appropriate. Not diaphoretic. HEAD: Atraumatic. Normocephalic. EYES: Pupils equal and round and reactive. Extraocular motions intact. No scleral icterus. No injection or drainage. Fundi not examined. ENT: Hearing grossly normal. Nose without bleeding or purulent drainage. NECK: Trachea midline. Supple, nontender. No palpable thyroid enlargement or nodularity. CARDIOVASCULAR: Regular rate and rhythm without murmurs, gallops, or rubs. No JVD. Peripheral pulses symmetric. RESPIRATORY/CHEST: Intubated on mechanical vent. Clear to auscultation. Breath sounds equal bilaterally. No wheezes, rales, or rhonchi. GASTROINTESTINAL: Abdomen soft, non-tender, nondistended. No guarding. Bowel sounds present. GENITOURINARY: Without palpable bladder distension. North catheter in place. MUSCULOSKELETAL: AVF in the left arm with palpable thrill. Status post left BKA. Right foot with toe amputations noted. LYMPHATICS: No palpable cervical or supraclavicular adenopathy. NEUROLOGICAL:Lethargic. Occasionally responds to yes/no questions by nodding/ shaking head PSYCHIATRIC: No obvious anxiety/depression. no apparent hallucinations or other psychotic thought process. Diagnostic Tests Laboratory: Laboratory Results - last 72 hr 09/16/18 09/17/18 09/17/18 14:56 17:20 23:31 WBC RBC Hgb Hct MCV MCH MCHC RDW Plt Count MPV PT INR APTT Sodium Potassium Chloride Carbon Dioxide Anion Gap BUN Creatinine Estimated GFR POC Glucose 166 H 147 H Random Glucose Calcium Phosphorus Magnesium Thiamine 101 09/18/18 09/18/18 09/18/18 04:47 04:47 05:06 WBC 10.7 RBC 3.75 L Hgb 9.9 L Hct 31.0 L MCV 82.6 MCH 26.3 L MCHC 31.9 L RDW 19.1 H Plt Count 235 MPV 10.2 PT INR APTT Sodium 140 Potassium 3.3 L Chloride 97 L Carbon Dioxide 31.8 Anion Gap 11 BUN 32 H Creatinine 3.42 H Estimated GFR 17 L POC Glucose 203 H Random Glucose 176 H Calcium 8.4 L Phosphorus 3.0 Magnesium 2.2 Thiamine 09/18/18 09/18/18 09/19/18 12:21 18:21 05:47 WBC RBC Hgb Hct MCV MCH MCHC RDW Plt Count MPV PT INR APTT Sodium Potassium Chloride Carbon Dioxide Anion Gap BUN Creatinine Estimated GFR POC Glucose 156 H 98 179 H Random Glucose Calcium Phosphorus Magnesium Thiamine 09/19/18 09/19/18 09/19/18 07:01 07:01 11:47 WBC 9.3 RBC 3.66 L Hgb 9.8 L Hct 29.8 L MCV 81.4 MCH 26.7 L MCHC 32.8 RDW 19.0 H Plt Count 227 MPV 10.4 PT INR APTT Sodium 138 Potassium 3.5 Chloride 95 L Carbon Dioxide 29.9 Anion Gap 13 BUN 47 H Creatinine 4.62 H Estimated GFR 12 L POC Glucose 268 H Random Glucose 167 H Calcium 8.2 L Phosphorus 3.5 Magnesium 2.4 Thiamine 09/19/18 09/20/18 09/20/18 17:40 00:11 04:05 WBC RBC Hgb Hct MCV MCH MCHC RDW Plt Count MPV PT INR APTT Sodium 138 Potassium 3.6 Chloride 95 L Carbon Dioxide 29.5 Anion Gap 14 BUN 59 H Creatinine 5.31 H Estimated GFR 10 L POC Glucose 110 129 H Random Glucose 210 H Calcium 7.8 L Phosphorus 3.9 Magnesium 2.5 Thiamine 09/20/18 09/20/18 09/20/18 04:06 05:08 11:22 WBC 9.2 RBC 3.32 L Hgb 8.8 L Hct 27.4 L MCV 82.5 MCH 26.6 L MCHC 32.3 RDW 18.7 H Plt Count 212 MPV 10.2 PT INR APTT Sodium Potassium Chloride Carbon Dioxide Anion Gap BUN Creatinine Estimated GFR POC Glucose 247 H 154 H Random Glucose Calcium Phosphorus Magnesium Thiamine 09/20/18 12:46 WBC RBC Hgb Hct MCV MCH MCHC RDW Plt Count MPV PT 12.0 H INR 1.2 APTT 22.5 L Sodium Potassium Chloride Carbon Dioxide Anion Gap BUN Creatinine Estimated GFR POC Glucose Random Glucose Calcium Phosphorus Magnesium Thiamine Result Diagrams: 09/21/18 04:09 09/21/18 04:09 Microbiology: Microbiology 09/09/18 11:20 Wound - Arm Fungal Smear - Final No fungal elements seen 09/09/18 11:20 Wound - Arm Fungal Culture - Preliminary No growth in 1 week 09/09/18 11:20 Wound - Arm Acid Fast Bacilli Smear - Final No acid fast bacilli seen 09/09/18 11:20 Wound - Arm Mycobacterial Culture - Preliminary No growth in 1 week 09/11/18 08:30 Blood - Peripheral Aerobic Blood Culture - Final No growth in 5 days 09/11/18 08:30 Blood - Peripheral Anaerobic Blood Culture - Final QNS - See aerobic report. 09/11/18 08:39 Blood - Peripheral Aerobic Blood Culture - Final No growth in 5 days 09/11/18 08:39 Blood - Peripheral Anaerobic Blood Culture - Final No growth in 5 days 09/09/18 03:55 Blood - Peripheral Aerobic Blood Culture - Final S. aureus MRSA 09/09/18 03:55 Blood - Peripheral Anaerobic Blood Culture - Final S. aureus MRSA 09/09/18 03:47 Blood - Peripheral Aerobic Blood Culture - Final S. aureus MRSA 09/09/18 03:47 Blood - Peripheral Anaerobic Blood Culture - Final S. aureus MRSA 09/09/18 11:20 Wound - Arm Gram Stain - Final 09/09/18 11:20 Wound - Arm Wound Culture - Final S. aureus MRSA 09/06/18 11:20 Blood - Peripheral Aerobic Blood Culture - Final S. aureus MRSA 09/06/18 11:20 Blood - Peripheral Anaerobic Blood Culture - Final S. aureus MRSA 09/06/18 11:28 Blood - Peripheral Aerobic Blood Culture - Final S. aureus MRSA 09/06/18 11:28 Blood - Peripheral Anaerobic Blood Culture - Final S. aureus MRSA Imaging: Abdomen/Pelvis CT 09/06/18 11:10 CONCLUSION: 1. Moderate stool in the rectum. No dilated loops of bowel to suggest obstruction. 2. Persistent large solid mass arising from the superior pole the right kidney measuring up to 6.2 cm. This is a renal cell carcinoma until proven otherwise. 3. End-stage appearing kidneys bilaterally. 4. Prominent diffuse vascular calcifications. Upper Extremity Ultrasound 09/09/18 00:00 CONCLUSION: Mixed echogenicity collection around the proximal fistula outflow in the medial left upper arm. Arterial Ultrasound 09/10/18 00:00 CONCLUSION: 1. Right iliofemoral and femoral popliteal bypass grafts appear to be occluded. 2. Occlusion of the point [place] ira superficial femoral and popliteal arteries. Proximal trifurcation vessels also appear to be occluded. 3. Monophasic signal in the right external iliac, common femoral and profunda femoral arteries. 4. CTA abdomen and runoff could be performed for anatomic characterization if clinically warranted. Catheter Placement 09/10/18 00:00 CONCLUSION: 1. Uncomplicated line placement as above. The patient has an occluded right internal jugular vein. This catheter was placed in the external jugular vein. Extremity Arterial Study 09/10/18 00:00 CONCLUSION: 1. Findings discerning for significant right lower extremity ischemia and likely occlusion of the right femoral to popliteal bypass graft with nearly flat waveforms and unobtainable pressures. 2. Status post left BKA. Tibia/Fibula X-Ray 09/13/18 00:00 CONCLUSION: 1. Status post below the knee amputation. 2. No evidence to suggest osteomyelitis. 3. Possible soft tissue erosion at the base of the amputation. Head CT 09/13/18 06:22 CONCLUSION: 1. No acute intracranial abnormality. 2. Progressive right maxillary sinus mucosal disease. . Head MRI 09/14/18 00:00 CONCLUSION: Chronic small vessel ischemic and atrophic changes. Chest X-Ray 09/17/18 05:00 CONCLUSION: Prominence of the central pulmonary vessels, stable from prior. No parenchymal infiltrates seen. Procedures: 09/09/2018: To OR for pseudoaneurysm removal with AVF revision 09/09/2018: Right IJ dialysis catheter placed 09/13/2018: Endotracheal intubation 09/13/2018: Left groin arterial line 09/13/2018: Right groin central line 09/15/2018: Right groin central line discontinued Patient/Family Conference Present at Family Conference: Spoke with patient's sister, Lexx Cox, via telephone Family Conference Location: Telephone Issues Discussed: * Palliative care role, purpose, approach * Additional medical, psychosocial, and spiritual history * Patients general health, functional status, and cognitive changes in the months leading up to the current hospitalization * Patient/family understanding of the current medical problems * Patient/family understanding of prognosis * Patients goals of care as best understood from advance directives and/or conversations and/or values * Current medical treatment options and benefits/burdens of those options * Likely scenarios comparing ongoing aggressive care with a transition to comfort measures only * Questions answered to the best of my ability * Palliative care contact information provided Assessment and Plan - Disease Oriented Problem List (1) Metabolic encephalopathy (2) Severe sepsis (3) Hyperkalemia (4) ESRD (end stage renal disease) (5) CAD (coronary artery disease) (6) PAD (peripheral artery disease) (7) Diabetes (8) Hypertension (9) Ischemic cardiomyopathy Pertinent Non-Medical Issues: Psychosocial: Spiritual: Legal: Ethical issues impacting care: Important Contacts: Micaela Bhatt, sister: [phone] Lety Montez, friend: [phone] Prognosis: DRAFT... 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 remains critically ill. From an endocarditis standpoint, does not meet criteria at this time for early valve replacement, and overall is a very poor open cardiac surgery candidate given comorbid conditions. However, may require valve replacement in the future. will hold off on CT surgery consult at this time given multiple active problems. will work towards weaning mechanical ventilation today and ongoing volume removal with IHD. Code Status: Full Code Plan: * FULL CODE * Patient lacks insight and judgment toward her medical conditions at this time. It is unclear who is the legal healthcare proxy decision-maker. Patient may still be . She has a son and a daughter. Attempting to contact patient's daughter, Angelina. sister reports no one has had contact with the patient's son in years. * Goals remain aggressive at this time. * Discussed patient with RN (Jack) and Dr. Bay * Patient's sister stated they had not talked about what she her medical treatment goals might be in this situation. Aggressive goals pending further conversations and attempts to identify the legal HCP decision-maker. * Palliative care contact information was provided to the patient's sister. * Symptom management: Pain: Multifactorial. Possible contributing factors include infection, impaired skin integrity, impaired circulation, recent invasive procedures, invasive lines etc. [place] 5/325 is available as needed every 4 hours for pain scale 4-6. PRN IV morphine 2 mg is available every 4 hours for pain rated 6-10. PRN Tylenol is also available. 24 hour PRN requirements = Morphine 2mg IV x 2. Will monitor PRN requirements and make recommendations as appropriate Debility: Patient is a frail, cachectic female with multiple comorbid conditions. Family states she is living independently in her own home and refuses out; they feel this has become a safety issue for the patient. Recommendations for SNF placement with rehab upon discharge * Palliative care will continue to follow this patient throughout her hospitalization to establish trust, assist with symptom management and clarification of medical treatment goals. Appreciation Thank you for the opportunity to participate in the care of Arlyn Tavares.
[2018-09-20] MEDS: Morphine Inj 4 MG/ML Vial IV.PUSH PRN (16:50)
--- NOTE | 2018-09-20 19:35 | P.PNADD ---
Addendum to Inpatient Note Additional information: seen around 3 PM fuull note to follow
--- NOTE | 2018-09-20 20:07 | P.PNID ---
Subjective Remarks: remains on vent seen during HD not a candidate for revasc Prbably will need b/l AKAs 2 D echo with MV vegetation afebrile Antibiotics: vancomycin Allergies/Adverse Reactions: Allergies latex Allergy (Severe, Unverified 09/06/18 11:19) Edema RASH Objective Vital Signs 09/19/18 23:28 09/19/18 23:50 09/20/18 00:00 Temperature 100.4 F H Pulse Rate 80 82 Respiratory Rate 15 15 16 Blood Pressure 127/58 L Pulse Oximetry 100 09/20/18 02:34 09/20/18 03:30 09/20/18 03:42 Temperature Pulse Rate 80 83 Respiratory Rate 15 15 Blood Pressure Pulse Oximetry 100 09/20/18 04:00 09/20/18 07:20 09/20/18 08:00 Temperature 100.6 F H 99.9 F H Pulse Rate 81 79 80 Respiratory Rate 16 15 16 Blood Pressure 114/59 L 116/59 L Pulse Oximetry 100 99 09/20/18 09:54 09/20/18 11:12 09/20/18 12:00 Temperature 101.2 F H Pulse Rate 86 91 H Respiratory Rate 15 15 15 Blood Pressure 134/66 Pulse Oximetry 100 09/20/18 12:49 09/20/18 15:00 09/20/18 16:00 Temperature 98.8 F Pulse Rate 86 91 H Respiratory Rate 15 17 15 Blood Pressure 140/72 Pulse Oximetry 100 09/20/18 17:13 09/20/18 19:30 Temperature Pulse Rate 93 H Respiratory Rate 15 17 Blood Pressure Pulse Oximetry 100 100 Intake & Output 09/20/18 09/20/18 09/21/18 06:59 18:59 06:59 Intake Total 531 / 531 512.5 / 512.5 Output Total 5000 / 5000 Balance 531 / 531 -4487.5 / -4487.5 Weight 50.5 kg Intake: IV 362.5 / 362.5 Flexbumin 25% Inj 100 ML @ 60 100 / 100 mls/hr IV.SIG WITH DIALYSIS PRN Rx#:[id number] Vancomycin Inj 1,250 MG In NS 262.5 / 262.5 Inj 250 ML @ 250 mls/hr IV.SIG WITH DIALYSIS RAFAEL Rx#:[id number] Tube Feeding 471 / 471 Tube Irrigant 60 / 60 Other 150 / 150 Output: Hemodialysis Amount 5000 / 5000 Other: Date of Last Bowel Movement 09/19/18 09/20/18 # Bowel Movements 1 Lab - Hematology Results 09/19/18 09/20/18 07:01 04:06 WBC 9.3 9.2 RBC 3.66 L 3.32 L Hgb 9.8 L 8.8 L Hct 29.8 L 27.4 L MCV 81.4 82.5 MCH 26.7 L 26.6 L MCHC 32.8 32.3 RDW 19.0 H 18.7 H Plt Count 227 212 MPV 10.4 10.2 Lab - Chemistry Results 09/16/18 09/19/18 09/19/18 14:56 05:47 07:01 Sodium 138 Potassium 3.5 Chloride 95 L Carbon Dioxide 29.9 Anion Gap 13 BUN 47 H Creatinine 4.62 H Estimated GFR 12 L POC Glucose 179 H Random Glucose 167 H Calcium 8.2 L Phosphorus 3.5 Magnesium 2.4 Thiamine 101 Procalcitonin 09/19/18 09/19/18 09/20/18 11:47 17:40 00:11 Sodium Potassium Chloride Carbon Dioxide Anion Gap BUN Creatinine Estimated GFR POC Glucose 268 H 110 129 H Random Glucose Calcium Phosphorus Magnesium Thiamine Procalcitonin 09/20/18 09/20/18 09/20/18 04:05 05:08 11:22 Sodium 138 Potassium 3.6 Chloride 95 L Carbon Dioxide 29.5 Anion Gap 14 BUN 59 H Creatinine 5.31 H Estimated GFR 10 L POC Glucose 247 H 154 H Random Glucose 210 H Calcium 7.8 L Phosphorus 3.9 Magnesium 2.5 Thiamine Procalcitonin 09/20/18 09/20/18 14:15 17:55 Sodium Potassium Chloride Carbon Dioxide Anion Gap BUN Creatinine Estimated GFR POC Glucose 77 Random Glucose Calcium Phosphorus Magnesium Thiamine Procalcitonin 17.73 H Imaging: ITS Impressions Abdomen/Pelvis CT 09/06/18 11:10 CONCLUSION: 1. Moderate stool in the rectum. No dilated loops of bowel to suggest obstruction. 2. Persistent large solid mass arising from the superior pole the right kidney measuring up to 6.2 cm. This is a renal cell carcinoma until proven otherwise. 3. End-stage appearing kidneys bilaterally. 4. Prominent diffuse vascular calcifications. Upper Extremity Ultrasound 09/09/18 00:00 CONCLUSION: Mixed echogenicity collection around the proximal fistula outflow in the medial left upper arm. Arterial Ultrasound 09/10/18 00:00 CONCLUSION: 1. Right iliofemoral and femoral popliteal bypass grafts appear to be occluded. 2. Occlusion of the [place] superficial femoral and popliteal arteries. Proximal trifurcation vessels also appear to be occluded. 3. Monophasic signal in the right external iliac, common femoral and profunda femoral arteries. 4. CTA abdomen and runoff could be performed for anatomic characterization if clinically warranted. Catheter Placement 09/10/18 00:00 CONCLUSION: 1. Uncomplicated line placement as above. The patient has an occluded right internal jugular vein. This catheter was placed in the external jugular vein. Extremity Arterial Study 09/10/18 00:00 CONCLUSION: 1. Findings discerning for significant right lower extremity ischemia and likely occlusion of the right femoral to popliteal bypass graft with nearly flat waveforms and unobtainable pressures. 2. Status post left BKA. Tibia/Fibula X-Ray 09/13/18 00:00 CONCLUSION: 1. Status post below the knee amputation. 2. No evidence to suggest osteomyelitis. 3. Possible soft tissue erosion at the base of the amputation. Head CT 09/13/18 06:22 CONCLUSION: 1. No acute intracranial abnormality. 2. Progressive right maxillary sinus mucosal disease. . Head MRI 09/14/18 00:00 CONCLUSION: Chronic small vessel ischemic and atrophic changes. Chest X-Ray 09/17/18 05:00 CONCLUSION: Prominence of the central pulmonary vessels, stable from prior. No parenchymal infiltrates seen. Physical Exam: GENERAL: NAD lethargic, easily arousable SKIN: Warm and dry. HEAD: Atraumatic. Normocephalic. EYES: diconjugated gaze ENT: No nasal bleeding or discharge. Mucous membranes pink and moist. NECK: Trachea midline. No JVD. CARDIOVASCULAR: Regular rate and rhythm. + murmur 3/6 systolic RESPIRATORY: No accessory muscle use. Clear to auscultation. Breath sounds equal bilaterally. GASTROINTESTINAL: Abdomen soft, non-tender, nondistended. Hepatic and splenic margins not palpable. MUSCULOSKELETAL: Extremities without clubbing, cyanosis, or edema. L BKA: opening in the middle of incision, draining white pus R foot, not refilling, pulseless with ongoing evolving dry gangrene L BKA with small purulent draiange on the dressing and worseningg incision dehiscence L UE incision dry, clean, well approximated NEUROLOGICAL: pt is lehtargic, arousable ; responsive to verbal stimuli, moving extremeties to command PSYCHIATRIC: calm LINES: vascath in place R chest Assessment and Plan - Plan New issue: sp code ? stroke MRSA sepsis: souce MV endocarditis and infected LUE AV fistula last cl negative MV endocartditis AMS no septic emboli HD, non comliance came with electrolytes imbalance Ischemic R foot with mumification of some toes - vasc surgery ff Severe PVD critical iscejmia . Gangrene Non healing L BKA site. Needs revision XR neg for osteo no acute ischemia h/o RLE ileofemoral and fem pop bypass in Feb 2018 Infected pseudoaneurism of R UE AVF - sp repair, I+D Renal mass, prob malignancy . Persistent large solid mass arising from the superior pole the right kidney measuring up to 6.2 cm. cont vancomycin w HD keep trough levels 15-20; trough remains low Anticipate 6-8 weeks of tx with vancomycin declan RN
[2018-09-21] MEDS: Insulin NovoLIN Regular Correctional Sugar Inj SQ SCH ×4 (00:34→17:35)
--- NOTE | 2018-09-21 04:44 | XR ---
EXAM DATE: 09/21/2018 4:28 AM EDT AGE/SEX: 58 years / Female INDICATIONS: Short of breath. CLINICAL DATA: This is the patient's subsequent encounter. Patient reports that signs and symptoms h ave been present for 1 week and indicates a pain score of 0/10. MEDICAL/SURGICAL HISTORY: Non-responsive. Non-responsive. COMPARISON: [facility] – [place], CHEST 1V SINGLE AP, 09/17/2018. . FINDINGS: Mild diffuse airspace opacities persist, not significantly changed. No pleural effusion seen. No pneu mothorax. Heart size stable, upper limits of normal. Endotracheal tube tip is approximately 1.8 cm above the valeria. There is a nasogastric tube with tip in the stomach. CONCLUSION: No significant change. Mild diffuse airspace opacities persist. Electronically signed by: Martin Oreilly MD 09/21/2018 4:43 AM EDT
[2018-09-21] MEDS: Heparin - SQ 10,000 UNITS/ML Vial SQ SCH ×2 (05:28→17:55)
[2018-09-21 06:17] LABS: Hematocrit 26.5 % (35.0-46.0); Hemoglobin 8.7 gm/dL (11.6-15.3); Mean Corpuscular HGB Conc 32.8 % (32.0-36.0); Mean Corpuscular Hemoglobin 26.9 pg (27.0-34.0); Mean Corpuscular Volume 82.1 fL (80.0-100.0); Mean Platelet Volume 11.6 fL (7.0-11.0); Platelet Count 219 th/mm3 (150-450); Red Blood Count 3.22 mil/mm3 (4.00-5.30); Red Cell Distribution Width 18.5 % (11.6-17.2); White Blood Count 8.7 th/mm3 (4.0-11.0)
[2018-09-21 06:33] LABS: Calcium 8.7 mg/dL (8.5-10.1); Carbon Dioxide 29.8 meq/L (21.0-32.0); Magnesium 2.3 mg/dL (1.5-2.5); Phosphorus 3.3 mg/dL (2.5-4.9); Potassium 3.8 meq/L (3.5-5.1)
[2018-09-21] MEDS: Artificial Tears Opth Drops 15 ML Bottle EACH EYE SCH ×2 (08:05→21:00)
[2018-09-21] MEDS: Famotidine 20 MG Tablet PO SCH ×2 (08:06→21:00)
[2018-09-21] MEDS: Senna/Docusate Sodium 8.6/50 MG Tablet PO SCH ×2 (08:06→21:00)
--- NOTE | 2018-09-21 10:34 | P.PNCC ---
Subjective Subjective Remarks/Hospital Course: No history is obtainable from the patient due to altered mental status. All history obtained from chart review and discussion with ED attending. Patient is a 58-year-old -[place] female with past medical history of type 2 diabetes, hypertension, hyperlipidemia, ESRD on HD M/W/F, CHF Echo 03/22/07 EF 30 -35%, CAD, s/p LAD stent 06/08, status post left BKA. Patient was brought to the emergency department by EMS for altered mental status. Apparently patient was found lying on the floor between 2 dressers, missed two dialysis appointments. CT of the head was negative for acute findings chest x-ray showed pulmonary vascular congestion, left lower lobe atelectasis. CT abdomen pelvis showed large 6.2 cm renal mass which has grown in size since last scan in Nov 2017, and suspicious for renal cell carcinoma. Her WBC count was 23.4 with left shift, with altered mental status this was most likely secondary to severe sepsis. Patient was empirically given vancomycin and Zosyn in the ED after getting blood cultures. Also her potassium was 6.3 patient is receiving bicarb now and nephrology had been contacted for stat dialysis I evaluated the patient in the emergency department. Patient is very lethargic encephalopathic. She mumbles a few words but did not follow commands. Even though very lethargic at this point she is protecting airway. In addition to IV bicarb I will also give 5 units of insulin and IV dextrose. Antibiotics will be continued-renally dosed vancomycin and Zosyn. Will request nephrology and urology consult. At this time critically ill with severe sepsis. 09/07: Patient is lying in bed mental status seems to be improved alert oriented x2 today. Potassium is 5.3 chest x-ray shows pulmonary edema. Will request for repeat hemodialysis today 09/13: Rapid response team activated for patient hypotension and hypoxemia. After transfer to ICU I have found patient in agonal breathing and immediately intubated her with 7.5 ET tube. Shortly after intubation the patient was pulseless and 1 cycle of CPR was performed including one injection of epinephrine, chest compressions, and sodium bicarbonate injections. Family notified about the critical condition. 09/14: Remains encephalopathic, orally intubated on mechanical ventilation. 09/15: More awake, opening eyes, squeezing my fingers with her hands on command. Remains orally intubated on mechanical ventilation. 09/16: clinically improving. following commands. on PSV 15/5/40%. HD yesterday with good volume removal. 09/17: still failing SBTs- going apneic into back-up mode. will attempt again today. likely will need HD again today. still following commands. 09/18: During CPAP trials. T-max 100.5 currently 100. -3 L with hemodialysis. Arousable and follows commands. 09/19: T-max 100.6. Currently 100.1. Appears comfortable on PSV trial. Lasted greater than 9 hours 09/18 tolerating tube feeds. White blood cell count is normalized. Subjective 09/20: T-max 100.6. Remains on CPAP trial. Lasted for hours yesterday. Palliative care discussed with family possible right [id number] amputation. Hemodialysis catheter should be removed after dialysis today. Arousable while on the ventilator 09/21: Remains encephalopathic, orally intubated on mechanical ventilation. Nephrology planning new Vas-Cath to be placed by IR tomorrow for hemodialysis Objective Vital Signs / I&O: Vital Signs 09/20/18 11:12 09/20/18 12:00 09/20/18 12:49 Temperature 101.2 F H Pulse Rate 86 91 H Respiratory Rate 15 15 15 Blood Pressure 134/66 Pulse Oximetry 100 09/20/18 15:00 09/20/18 16:00 09/20/18 17:00 Temperature 98.8 F Pulse Rate 86 91 H 84 Respiratory Rate 17 15 15 Blood Pressure 140/72 129/62 Pulse Oximetry 100 09/20/18 17:13 09/20/18 17:15 09/20/18 17:30 Temperature Pulse Rate 84 85 Respiratory Rate 15 15 22 Blood Pressure 128/62 129/63 Pulse Oximetry 100 100 100 09/20/18 17:45 09/20/18 18:00 09/20/18 18:15 Temperature Pulse Rate 83 82 82 Respiratory Rate 15 15 15 Blood Pressure 118/59 L 119/58 L 121/58 L Pulse Oximetry 100 100 100 09/20/18 18:30 09/20/18 18:46 09/20/18 19:00 Temperature Pulse Rate 81 101 H 87 Respiratory Rate 15 26 H 18 Blood Pressure 119/56 L 119/67 145/67 H Pulse Oximetry 100 100 100 09/20/18 19:15 09/20/18 19:30 09/20/18 19:45 Temperature Pulse Rate 89 90 90 Respiratory Rate 20 27 H 22 Blood Pressure 139/65 141/67 H 131/67 Pulse Oximetry 100 100 100 09/20/18 20:00 09/20/18 20:15 09/20/18 20:30 Temperature 98.2 F Pulse Rate 91 H 90 89 Respiratory Rate 24 22 20 Blood Pressure 128/67 127/67 123/63 Pulse Oximetry 100 100 100 09/20/18 20:45 09/20/18 21:00 09/20/18 21:15 Temperature Pulse Rate 87 98 H 87 Respiratory Rate 15 15 14 Blood Pressure 120/60 117/59 L 118/63 Pulse Oximetry 100 100 100 09/20/18 21:30 09/20/18 21:45 09/20/18 22:00 Temperature Pulse Rate 87 85 85 Respiratory Rate 15 16 15 Blood Pressure 131/64 128/61 127/65 Pulse Oximetry 100 100 100 09/20/18 22:15 09/20/18 22:30 09/20/18 22:45 Temperature Pulse Rate 84 88 87 Respiratory Rate 15 16 16 Blood Pressure 126/61 135/70 132/63 Pulse Oximetry 100 100 100 09/20/18 23:00 09/20/18 23:15 09/20/18 23:30 Temperature Pulse Rate 84 83 84 Respiratory Rate 15 15 15 Blood Pressure 113/57 L 115/58 L 124/60 Pulse Oximetry 100 100 100 09/20/18 23:45 09/21/18 00:00 09/21/18 00:15 Temperature 98.8 F Pulse Rate 82 82 83 Respiratory Rate 15 18 15 Blood Pressure 117/56 L 124/64 127/64 Pulse Oximetry 100 100 100 09/21/18 00:30 09/21/18 00:45 09/21/18 00:58 Temperature Pulse Rate 83 82 85 Respiratory Rate 18 16 18 Blood Pressure 129/67 129/62 Pulse Oximetry 100 100 100 09/21/18 01:00 09/21/18 01:15 09/21/18 01:30 Temperature Pulse Rate 82 82 83 Respiratory Rate 15 15 13 Blood Pressure 117/58 L 112/59 L 118/61 Pulse Oximetry 100 100 100 09/21/18 01:45 09/21/18 02:00 09/21/18 02:15 Temperature Pulse Rate 86 86 85 Respiratory Rate 15 15 15 Blood Pressure 138/70 137/72 136/67 Pulse Oximetry 100 100 100 09/21/18 02:30 09/21/18 02:45 09/21/18 03:00 Temperature Pulse Rate 86 86 88 Respiratory Rate 15 15 16 Blood Pressure 134/71 132/74 141/75 H Pulse Oximetry 100 100 100 09/21/18 03:15 09/21/18 03:30 09/21/18 03:42 Temperature Pulse Rate 86 90 91 H Respiratory Rate 17 16 17 Blood Pressure 135/64 140/72 Pulse Oximetry 100 100 09/21/18 03:43 09/21/18 03:45 09/21/18 04:00 Temperature 99.7 F H Pulse Rate 88 89 Respiratory Rate 15 15 16 Blood Pressure 138/70 133/67 Pulse Oximetry 100 100 100 09/21/18 04:15 09/21/18 04:30 09/21/18 04:45 Temperature Pulse Rate 91 H 88 98 H Respiratory Rate 16 15 27 H Blood Pressure 147/73 H 131/68 140/95 H Pulse Oximetry 100 100 100 09/21/18 05:00 09/21/18 07:00 09/21/18 08:00 Temperature 98.5 F Pulse Rate 88 81 80 Respiratory Rate 17 15 24 Blood Pressure 128/82 129/66 Pulse Oximetry 100 100 100 09/21/18 08:48 09/21/18 09:12 09/21/18 10:02 Temperature Pulse Rate Respiratory Rate 28 H 22 Blood Pressure Pulse Oximetry 100 100 100 Intake & Output 09/20/18 09/21/18 09/21/18 18:59 06:59 18:59 Intake Total 512.5 / 512.5 186 / 186 Output Total 5000 / 5000 Balance -4487.5 / -4487.5 186 / 186 Weight 48 kg Intake: IV 362.5 / 362.5 Flexbumin 25% Inj 100 ML @ 60 100 / 100 mls/hr IV.SIG WITH DIALYSIS PRN Rx#:[id number] Vancomycin Inj 1,250 MG In NS 262.5 / 262.5 Inj 250 ML @ 250 mls/hr IV.SIG WITH DIALYSIS RAFAEL Rx#:[id number] Tube Feeding 126 / 126 Tube Irrigant 60 / 60 Other 150 / 150 Output: Hemodialysis Amount 5000 / 5000 Other: Date of Last Bowel Movement 09/20/18 09/21/18 09/21/18 # Bowel Movements 1 1 # Incontinent Bowel Movements 1 Result Diagrams: 09/21/18 04:09 09/21/18 04:09 Objective Remarks: GENERAL: 58-year-old AA female, lying in bed intubated. SKIN: Warm and dry. No rash HEAD: Atraumatic. Normocephalic. EYES: Pupils equal and round, 2 mm reactive. No scleral icterus. ENT: No nasal bleeding or discharge. Mucous membranes moist NECK: Trachea midline. No JVD. CARDIOVASCULAR: RRR. S1, S2. No S4. 2/6 murmur systolic. RESPIRATORY: On mechanical ventilation, equal chest rise. Currently on PSV trials GASTROINTESTINAL: Abdomen soft, non-tender, nondistended. MUSCULOSKELETAL: AV fistula in left upper arm with palpable thrill. s/p L BKA NEUROLOGICAL: Drowsy, arousable, follows commands, orally intubated on mechanical ventilation Assessment and Plan - Assessment and Plan Plan: NEURO/PSYCH: Toxic metabolic encephalopathy- improving. History of peripheral neuropathy History of glaucoma Avoid any sedating medication CT head negative for bleed. Encephalopathy most likely from metabolic causes/sepsis. EEG generalized slowing 09/15 MRI brain 09/15 no acute disease. Neurology has followed RESP: Acute hypoxic and hypercarbic Respiratory failure Pulmonary edema Currently on PSV trial. PRVC overnight Albuterol/ipratropium aerosols every 4 hours with albuterol aerosols every 2 hours as needed dyspnea Continue mechanical ventilation and ventilator bundle continue SBTs daily wean fio2 for goal spo2 > 90% Chest x-ray as needed CV: Coronary artery disease with prior stents (LAD stent 06/08) Chronic systolic heart failure ejection fraction 30-35% 2016 Severe TR Severe mitral regurgitation [place] mitral valve infective endocarditis s/p L BKA s/p R iliofemoral bypass and R fem-pop bypass by Dr. Ramirez 11/26/17 Peripheral arterial disease Hypertension Dyslipidemia Continue baby aspirin 81 mg daily severe MR continues to require volume removal. HD per nephrology. Currently not requiring vasopressors and her anti-pretenses Cardiogram revealed EF of 30%. PAP 57 mmHg. Severe TR. [place] mitral valve mass. Will need right above or below the knee amputation to lower extremity. Palliative care consult to discuss with family options. Patient did not but her wishes known prior to intubation. GI: Acute protein calorie malnutrition- severe Continue 10 mg twice daily PO famotidine Tolerating Nepro tube feeds at 40 cc an hour per nutrition recommendation. Docusate sodium/senna twice daily for bowel regimen FEN/RENAL: ESRD Large right renal mass suspicious for renal cell carcinoma Hemodialysis Thursday/Thursday/Thursday per nephrology, Dr Ahumada. Urology consulted for right renal mass (previously refused work up) Sevelamer 1600 mg 3 times daily for hyperphosphatemia Nre Vascath to be placed on 09/22 prior to HD ID: Severe sepsis [place] Mitral Valve infective endocarditis Source of sepsis: mitral valve endocarditis, infected AV fistula IV vancomycin per ID Dr. Noemí Nj removed. New vascath to be placed prior to HD on 09/22 HEME: Anemia of chronic kidney disease Monitor CBC daily. Follow trends. No indication for blood transfusion at this time ENDO: Diabetes mellitus, type II med-dose insulin sliding scale q6h PROPH: Heparin 5000 subcutaneous every 12 for DVT prophylaxis. PO famotidine ACCESS: Right groin central line 09/13/2018-to be discontinued 09/15 Discontinue right IJ hemodialysis catheter 09/20 after hemodialysis piv D/W Dr. Ahumada, D/W [employer]
--- NOTE | 2018-09-21 11:18 | P.PNNP ---
Subjective Interval history: Remains on the ventilator. Follows some commands. Febrile yesterday. VasCath removed yesterday. Needs a new Vascath, as PermCath not a good idea in the presence of fever. Physical Exam Vital signs: Vital Signs 09/20/18 11:12 09/20/18 12:00 09/20/18 12:49 Temperature 101.2 F H Pulse Rate 86 91 H Respiratory Rate 15 15 15 Blood Pressure 134/66 Pulse Oximetry 100 09/20/18 15:00 09/20/18 16:00 09/20/18 17:00 Temperature 98.8 F Pulse Rate 86 91 H 84 Respiratory Rate 17 15 15 Blood Pressure 140/72 129/62 Pulse Oximetry 100 09/20/18 17:13 09/20/18 17:15 09/20/18 17:30 Temperature Pulse Rate 84 85 Respiratory Rate 15 15 22 Blood Pressure 128/62 129/63 Pulse Oximetry 100 100 100 09/20/18 17:45 09/20/18 18:00 09/20/18 18:15 Temperature Pulse Rate 83 82 82 Respiratory Rate 15 15 15 Blood Pressure 118/59 L 119/58 L 121/58 L Pulse Oximetry 100 100 100 09/20/18 18:30 09/20/18 18:46 09/20/18 19:00 Temperature Pulse Rate 81 101 H 87 Respiratory Rate 15 26 H 18 Blood Pressure 119/56 L 119/67 145/67 H Pulse Oximetry 100 100 100 09/20/18 19:15 09/20/18 19:30 09/20/18 19:45 Temperature Pulse Rate 89 90 90 Respiratory Rate 20 27 H 22 Blood Pressure 139/65 141/67 H 131/67 Pulse Oximetry 100 100 100 09/20/18 20:00 09/20/18 20:15 09/20/18 20:30 Temperature 98.2 F Pulse Rate 91 H 90 89 Respiratory Rate 24 22 20 Blood Pressure 128/67 127/67 123/63 Pulse Oximetry 100 100 100 09/20/18 20:45 09/20/18 21:00 09/20/18 21:15 Temperature Pulse Rate 87 98 H 87 Respiratory Rate 15 15 14 Blood Pressure 120/60 117/59 L 118/63 Pulse Oximetry 100 100 100 09/20/18 21:30 09/20/18 21:45 09/20/18 22:00 Temperature Pulse Rate 87 85 85 Respiratory Rate 15 16 15 Blood Pressure 131/64 128/61 127/65 Pulse Oximetry 100 100 100 09/20/18 22:15 09/20/18 22:30 09/20/18 22:45 Temperature Pulse Rate 84 88 87 Respiratory Rate 15 16 16 Blood Pressure 126/61 135/70 132/63 Pulse Oximetry 100 100 100 09/20/18 23:00 09/20/18 23:15 09/20/18 23:30 Temperature Pulse Rate 84 83 84 Respiratory Rate 15 15 15 Blood Pressure 113/57 L 115/58 L 124/60 Pulse Oximetry 100 100 100 09/20/18 23:45 09/21/18 00:00 09/21/18 00:15 Temperature 98.8 F Pulse Rate 82 82 83 Respiratory Rate 15 18 15 Blood Pressure 117/56 L 124/64 127/64 Pulse Oximetry 100 100 100 09/21/18 00:30 09/21/18 00:45 09/21/18 00:58 Temperature Pulse Rate 83 82 85 Respiratory Rate 18 16 18 Blood Pressure 129/67 129/62 Pulse Oximetry 100 100 100 09/21/18 01:00 09/21/18 01:15 09/21/18 01:30 Temperature Pulse Rate 82 82 83 Respiratory Rate 15 15 13 Blood Pressure 117/58 L 112/59 L 118/61 Pulse Oximetry 100 100 100 09/21/18 01:45 09/21/18 02:00 09/21/18 02:15 Temperature Pulse Rate 86 86 85 Respiratory Rate 15 15 15 Blood Pressure 138/70 137/72 136/67 Pulse Oximetry 100 100 100 09/21/18 02:30 09/21/18 02:45 09/21/18 03:00 Temperature Pulse Rate 86 86 88 Respiratory Rate 15 15 16 Blood Pressure 134/71 132/74 141/75 H Pulse Oximetry 100 100 100 09/21/18 03:15 09/21/18 03:30 09/21/18 03:42 Temperature Pulse Rate 86 90 91 H Respiratory Rate 17 16 17 Blood Pressure 135/64 140/72 Pulse Oximetry 100 100 09/21/18 03:43 09/21/18 03:45 09/21/18 04:00 Temperature 99.7 F H Pulse Rate 88 89 Respiratory Rate 15 15 16 Blood Pressure 138/70 133/67 Pulse Oximetry 100 100 100 09/21/18 04:15 09/21/18 04:30 09/21/18 04:45 Temperature Pulse Rate 91 H 88 98 H Respiratory Rate 16 15 27 H Blood Pressure 147/73 H 131/68 140/95 H Pulse Oximetry 100 100 100 09/21/18 05:00 09/21/18 07:00 09/21/18 08:00 Temperature 98.5 F Pulse Rate 88 81 80 Respiratory Rate 17 15 24 Blood Pressure 128/82 129/66 Pulse Oximetry 100 100 100 09/21/18 08:48 09/21/18 09:12 09/21/18 10:02 Temperature Pulse Rate Respiratory Rate 28 H 22 Blood Pressure Pulse Oximetry 100 100 100 Intake & Output 09/20/18 09/21/18 09/21/18 18:59 06:59 18:59 Intake Total 512.5 / 512.5 186 / 186 Output Total 5000 / 5000 Balance -4487.5 / -4487.5 186 / 186 Weight 48 kg Intake: IV 362.5 / 362.5 Flexbumin 25% Inj 100 ML @ 60 100 / 100 mls/hr IV.SIG WITH DIALYSIS PRN Rx#:[id number] Vancomycin Inj 1,250 MG In NS 262.5 / 262.5 Inj 250 ML @ 250 mls/hr IV.SIG WITH DIALYSIS RAFAEL Rx#:[id number] Tube Feeding 126 / 126 Tube Irrigant 60 / 60 Other 150 / 150 Output: Hemodialysis Amount 5000 / 5000 Other: Date of Last Bowel Movement 09/20/18 09/21/18 09/21/18 # Bowel Movements 1 1 # Incontinent Bowel Movements 1 Narrative: On the vent. Opens eyes, may follow simple commands. Chest: vented breath sounds bilaterally, no rhonchi, no wheezing. Heart: RRR. 3/6 systolic murmur. No edema. s/p left BKA. Chronic ischemia right lower extremity. Assessment and Plan - Assessment (1) ESRD (end stage renal disease) Code(s): N18.6 - End stage renal disease Status: Deleted Plan: Dialysis MWF. She is s/p repair/excision of infected pseudoaneurysm of AVF, with apparent interposition bovine graft. Fistula pseudo aneurysm grossly infected. Previous steal history - no apparent signs of steal at this point. VasCath removed yesterday, she will need a new VasCath for dialysis tomorrow. Discussed with Dr. Bryson. ---- (2) Hyperkalemia Code(s): E87.5 - Hyperkalemia Status: Deleted Plan: Improved. . (3) Renal mass Code(s): N28.89 - Other specified disorders of kidney and ureter Status: Acute Plan: Renal mass has grown in size, most likely malignancy. Urology note reviewed, to follow up after discharge. Previously the patient had refused workup. (4) Severe sepsis Code(s): A41.9 - Sepsis, unspecified organism; R65.20 - Severe sepsis without septic shock Status: Deleted Plan: MRSA sepsis, endocarditis. MRI of the brain negative for septic emboli. She has mitral valve vegetation. On Vancomycin. s/p excision of infected pseudoaneurysm of AVF. (5) CAD (coronary artery disease) Code(s): I25.10 - Atherosclerotic heart disease of [place] coronary artery without angina pectoris Status: Deleted (6) PAD (peripheral artery disease) Code(s): I73.9 - Peripheral vascular disease, unspecified Status: Deleted Plan: s/p left BKA. Poor circulation of right lower extremity. Vascular surgery following. Not a candidate for revascularization. May end up with bilateral AKA. (7) DM2 (diabetes mellitus, type 2) Code(s): E11.9 - Type 2 diabetes mellitus without complications Status: Deleted Plan: maintain blood glucose between 140 and 180 while hospitalized. - Attending Attestation Very poor prognosis. Hospice is appropriate.
--- NOTE | 2018-09-21 11:22 | P.PNPAL ---
Palliative care continues to work on identifying legal health care proxy decision maker. Spoke with patient's daughter, Angelina [phone]. She wishes to participate in medical decision making for Ms. Tavares. Angelina tells me she believes patient prior , Deon Moraes. She is unaware of his whereabouts and does not have contact information. Also reports patient has a son that was raised by his grandmother [facility] somewhere but they have not had contact. Explained per [place] [employer], medical proxy decision making would fall to patient's spouse if they are still and would fall to majority of adult children if or wishes to opt-out of medical decision making. Angelina verbalized understanding stating "I understand, but you will be dealing with me. The most important thing to me is my mama and I'm not concerned with anyone else" indicating the hospital would not be able to locate additional family. [employer] requested to obtain information on patient's potential spouse and son. Previous number for Deon [phone] rings then disconnected. Reportedly he may be in a [facility] now. Angelina unable to meet at 4pm. Meeting scheduled for Saturday 09/22 at 130pm. Palliative care will continue to follow throughout hospitalization to determine legal health care proxy and address goals of medical treatment once proxy(s) identified.
[2018-09-21] MEDS ORDERED: *Heparin 10,000 UNITS/10 ML Vial Periprocedural ONLY ONE (14:35)
[2018-09-21] MEDS: Morphine Inj 4 MG/ML Vial IV.PUSH PRN (17:54)
[2018-09-22] MEDS: Insulin NovoLIN Regular Correctional Sugar Inj SQ SCH ×4 (02:20→17:59)
[2018-09-22] MEDS: Heparin - SQ 10,000 UNITS/ML Vial SQ SCH ×2 (06:16→17:59)
[2018-09-22 07:41] LABS: Hematocrit 24.9 % (35.0-46.0); Hemoglobin 8.1 gm/dL (11.6-15.3); Mean Corpuscular HGB Conc 32.7 % (32.0-36.0); Mean Corpuscular Hemoglobin 27.1 pg (27.0-34.0); Mean Corpuscular Volume 82.9 fL (80.0-100.0); Mean Platelet Volume 11.4 fL (7.0-11.0); Platelet Count 223 th/mm3 (150-450); Red Cell Distribution Width 18.4 % (11.6-17.2); White Blood Count 8.6 th/mm3 (4.0-11.0)
[2018-09-22 07:45] LABS: Calcium 8.5 mg/dL (8.5-10.1); Magnesium 2.6 mg/dL (1.5-2.5); Phosphorus 5.4 mg/dL (2.5-4.9); Potassium 4.1 meq/L (3.5-5.1)
--- NOTE | 2018-09-22 10:11 | IR ---
EXAM DATE: 09/21/2018 3:32 PM EDT AGE/SEX: 58 years / Female INDICATIONS: Patient presents with end stage renal disease in need of temporary dialysis catheter. CLINICAL DATA: This is the patient's initial encounter. Patient reports that signs and symptoms have been present for 1 week and indicates a pain score of Nonresponsive. MEDICAL/SURGICAL HISTORY: Cardiovascular disease. Renal failure, chronic. Diabetes. CAD, HTN , hyperlipidemia, CHF, Sepsis, peripheral arterial bypass, . Coronary stents, Repair of pseudo aneu rysm of AVF left arm COMPARISON: No prior exams available for comparison. FLUORO TIME (min): 2:10 IMAGE SERIES: 2 ACCESS SITE: Left internal jugular vein DEVICE(S): 14 [place] double lumen Schon catheter 20cm . . PROCEDURE : 1. Ultrasound guided venipuncture. 2. Fluoroscopic guidance. 3. Central line placement. The risks, benefits and alternatives to the procedure were explained and verbal and written consent w as obtained. The site was prepped in sterile fashion. Full sterile technique was used, including ca p, mask, sterile gloves and gown and a large sterile sheet. Hand hygiene and 2% chlorhexidine prep w as utilized per protocol for cutaneous antisepsis with appropriate dry time for site. Sterile gel an d sterile probe cover were utilized for ultrasound guidance. The skin and subcutaneous tissues were infiltrated with local anesthetic solution. A suitable site a dann the vein was selected with ultrasound and fluoroscopic guidance. A small incision was made. Th e vein was accessed under direct ultrasound visualization using the micropuncture technique. The darwin ropuncture set was exchanged for a 0.035 wire. The tract was dilated. The catheter was advanced int o position under direct fluoroscopic visualization, and was advanced with the tip at the junction of the superior vena cava and rt atrium. The catheter was fixed in place with suture and a sterile dres sing was applied. The patient tolerated the procedure well and there were no complications. CONCLUSION: 1. Uncomplicated line placement as above. 2. Please note patient's right internal jugular vein is occluded. Electronically signed by: Antione Hernández MD 09/22/2018 10:10 AM EDT
--- NOTE | 2018-09-22 11:14 | P.PNNP ---
Subjective Interval history: she is doing poorly. On the vent. Vascath placed yesterday. Physical Exam Vital signs: Vital Signs 09/21/18 11:18 09/21/18 12:00 09/21/18 12:52 Temperature 98.9 F Pulse Rate 97 H 90 Respiratory Rate 16 20 10 L Blood Pressure 113/57 L Pulse Oximetry 100 100 09/21/18 14:31 09/21/18 15:44 09/21/18 16:00 Temperature 99 F Pulse Rate 81 81 Respiratory Rate 6 L 22 Blood Pressure 147/67 H Pulse Oximetry 100 100 09/21/18 17:45 09/21/18 18:00 09/21/18 18:15 Temperature Pulse Rate 82 82 82 Respiratory Rate 9 L 14 14 Blood Pressure 110/58 L 111/58 L 108/67 Pulse Oximetry 100 100 100 09/21/18 18:30 09/21/18 18:45 09/21/18 19:00 Temperature Pulse Rate 80 82 81 Respiratory Rate 19 12 7 L Blood Pressure 95/55 L 107/57 L 104/59 L Pulse Oximetry 100 100 100 09/21/18 19:15 09/21/18 19:30 09/21/18 19:45 Temperature Pulse Rate 81 80 80 Respiratory Rate 20 19 18 Blood Pressure 100/57 L 100/57 L 95/50 L Pulse Oximetry 100 100 100 09/21/18 19:47 09/21/18 19:50 09/21/18 20:00 Temperature 98.6 F Pulse Rate 81 85 Respiratory Rate 13 7 L 19 Blood Pressure 121/58 L Pulse Oximetry 100 100 09/21/18 20:15 09/21/18 20:30 09/21/18 20:45 Temperature Pulse Rate 84 89 82 Respiratory Rate 15 26 H 6 L Blood Pressure 101/66 141/61 H 96/51 L Pulse Oximetry 100 100 100 09/21/18 21:00 09/21/18 21:15 09/21/18 21:30 Temperature Pulse Rate 82 81 81 Respiratory Rate 27 H 14 23 Blood Pressure 89/55 L 90/55 L 94/50 L Pulse Oximetry 100 100 100 09/21/18 21:45 09/21/18 22:00 09/21/18 22:15 Temperature Pulse Rate 80 80 80 Respiratory Rate 23 15 22 Blood Pressure 87/50 L 85/50 L 100/56 L Pulse Oximetry 100 100 100 10/30/18 22:30 09/21/18 22:45 09/21/18 23:00 Temperature Pulse Rate 80 78 85 Respiratory Rate 10 L 22 17 Blood Pressure 100/55 L 85/46 L 124/60 Pulse Oximetry 100 100 100 09/21/18 23:15 09/21/18 23:30 09/21/18 23:45 Temperature Pulse Rate 80 80 78 Respiratory Rate 13 25 H 21 Blood Pressure 105/58 L 107/57 L 96/50 L Pulse Oximetry 100 100 100 09/22/18 00:00 09/22/18 00:15 09/22/18 00:30 Temperature 98.1 F Pulse Rate 77 78 77 Respiratory Rate 23 20 21 Blood Pressure 89/50 L 97/55 L 95/50 L Pulse Oximetry 100 100 100 09/22/18 00:45 09/22/18 01:00 09/22/18 01:11 Temperature Pulse Rate 78 75 77 Respiratory Rate 14 20 7 L Blood Pressure 95/53 L 92/54 L Pulse Oximetry 100 100 09/22/18 01:15 09/22/18 01:39 09/22/18 01:45 Temperature Pulse Rate 78 82 79 Respiratory Rate 27 H 10 L 8 L Blood Pressure 98/56 L 116/60 108/57 L Pulse Oximetry 100 100 100 09/22/18 02:00 09/22/18 02:15 09/22/18 02:30 Temperature Pulse Rate 80 81 81 Respiratory Rate 15 21 20 Blood Pressure 109/60 113/63 111/56 L Pulse Oximetry 100 100 100 09/22/18 02:45 09/22/18 03:00 09/22/18 03:15 Temperature Pulse Rate 82 83 83 Respiratory Rate 17 17 16 Blood Pressure 112/61 114/57 L 111/59 L Pulse Oximetry 100 100 100 09/22/18 03:30 09/22/18 03:45 09/22/18 04:00 Temperature 97.9 F Pulse Rate 83 82 82 Respiratory Rate 17 14 16 Blood Pressure 114/61 123/56 L 112/60 Pulse Oximetry 100 100 100 09/22/18 04:15 09/22/18 04:28 09/22/18 04:30 Temperature Pulse Rate 82 81 82 Respiratory Rate 13 7 L 17 Blood Pressure 112/62 114/67 Pulse Oximetry 100 100 100 09/22/18 04:45 09/22/18 05:00 09/22/18 05:15 Temperature Pulse Rate 81 81 81 Respiratory Rate 13 8 L 10 L Blood Pressure 116/65 115/63 115/63 Pulse Oximetry 100 100 100 09/22/18 05:30 09/22/18 05:45 09/22/18 06:00 Temperature Pulse Rate 87 81 81 Respiratory Rate 18 19 13 Blood Pressure 120/67 111/61 107/57 L Pulse Oximetry 100 100 100 09/22/18 06:15 09/22/18 06:30 09/22/18 06:45 Temperature Pulse Rate 82 83 82 Respiratory Rate 20 8 L 15 Blood Pressure 110/61 110/61 111/62 Pulse Oximetry 100 100 100 09/22/18 07:00 09/22/18 07:15 09/22/18 07:30 Temperature Pulse Rate 83 83 82 Respiratory Rate 15 17 12 Blood Pressure 110/60 109/57 L 102/58 L Pulse Oximetry 100 100 100 09/22/18 07:45 09/22/18 08:00 09/22/18 08:15 Temperature 98.2 F Pulse Rate 82 82 84 Respiratory Rate 17 19 12 Blood Pressure 107/56 L 105/57 L 103/56 L Pulse Oximetry 100 100 100 09/22/18 08:30 09/22/18 08:45 09/22/18 09:00 Temperature Pulse Rate 89 88 97 H Respiratory Rate 13 17 38 H Blood Pressure 124/64 123/58 L 130/76 Pulse Oximetry 100 100 100 09/22/18 09:15 09/22/18 09:30 09/22/18 09:45 Temperature Pulse Rate 93 H 93 H 92 H Respiratory Rate 26 H 27 H 25 H Blood Pressure 106/58 L 108/56 L 108/57 L Pulse Oximetry 100 100 100 09/22/18 10:00 09/22/18 10:15 09/22/18 10:30 Temperature Pulse Rate 100 H 92 H 93 H Respiratory Rate 29 H 24 24 Blood Pressure 121/69 116/64 117/59 L Pulse Oximetry 100 100 100 09/22/18 10:45 Temperature Pulse Rate 93 H Respiratory Rate 19 Blood Pressure 116/61 Pulse Oximetry 100 Intake & Output 09/21/18 09/22/18 09/22/18 18:59 06:59 18:59 Intake Total 473 / 473 458 / 458 Balance 473 / 473 458 / 458 Weight 48.1 kg Intake: Tube Feeding 273 / 273 398 / 398 Tube Irrigant 60 / 60 Water Bolus Amount 200 / 200 Other: Date of Last Bowel Movement 09/21/18 09/22/18 # Bowel Movements 1 # Incontinent Bowel Movements 1 Narrative: On the vent. Unresponsive today. Chest: vented breath sounds bilaterally, no rhonchi, no wheezing. Heart: RRR. 3/6 systolic murmur. No edema. s/p left BKA. Ischemic right lower extremity. Very frail, generalized muscle wasting. Assessment and Plan - Assessment (1) ESRD (end stage renal disease) Code(s): N18.6 - End stage renal disease Status: Deleted Plan: Dialysis MWF. She is s/p repair/excision of infected pseudoaneurysm of AVF, with apparent interposition bovine graft. Fistula pseudo aneurysm grossly infected. Previous steal history - no apparent signs of steal at this point. ---- (2) Hyperkalemia Code(s): E87.5 - Hyperkalemia Status: Deleted Plan: Improved. . (3) Renal mass Code(s): N28.89 - Other specified disorders of kidney and ureter Status: Acute Plan: Renal mass has grown in size, most likely malignancy. Urology note reviewed, to follow up after discharge. Previously the patient had refused workup. (4) Severe sepsis Code(s): A41.9 - Sepsis, unspecified organism; R65.20 - Severe sepsis without septic shock Status: Deleted Plan: MRSA sepsis, endocarditis. MRI of the brain negative for septic emboli. She has mitral valve vegetation. On Vancomycin. s/p excision of infected pseudoaneurysm of AVF. (5) CAD (coronary artery disease) Code(s): I25.10 - Atherosclerotic heart disease of [place] coronary artery without angina pectoris Status: Deleted (6) PAD (peripheral artery disease) Code(s): I73.9 - Peripheral vascular disease, unspecified Status: Deleted Plan: s/p left BKA. Poor circulation of right lower extremity. Vascular surgery following. Not a candidate for revascularization. (7) DM2 (diabetes mellitus, type 2) Code(s): E11.9 - Type 2 diabetes mellitus without complications Status: Deleted Plan: maintain blood glucose between 140 and 180 while hospitalized. - Attending Attestation very poor prognosis.
[2018-09-22] MEDS: Senna/Docusate Sodium 8.6/50 MG Tablet PO SCH ×2 (12:45→21:30)
[2018-09-22] MEDS: Famotidine 20 MG Tablet PO SCH ×2 (12:45→21:29)
[2018-09-22] MEDS: Artificial Tears Opth Drops 15 ML Bottle EACH EYE SCH ×2 (12:46→21:30)
--- NOTE | 2018-09-22 14:22 | P.PNPAL ---
Reason for Visit Reason for visit: a. To assist with evaluation and management of symptoms including: pain, debility b. To assist medical decision maker(s) with: better understanding of current medical conditions; weighing benefits/burdens of medical treatment options; making medical treatment decisions. Subjective Subjective/Interval History: Palliative care follow-ups for assistance with pain and symptom management, family support and goals of care clarification. Patient seen in medical ICU, remains intubated on mechanical ventilation. Alert, following simple commands. Ongoing hemodialysis at time of visit. Vascular surgery following, patient with worsening ischemia to right lower extremity secondary to severe PVD. Patient will required right AKA as well as revision of left BKA conversion to AKA, not a candidate for revascularization. Infectious disease following, 2D echo with MV vegetation, MRSA sepsis currently on vancomycin. Nephrology following, patient with end-stage renal disease hemodialysis dependent. Renal mass discovered in November 2017 which is suspicious of renal cancer, patient refused workup at that time. Patient with multiple comorbidities and overall poor prognosis for prolonged survival or improved quality of life. Palliative care attempted to set up family meeting with patient's daughter Angelina. Daughter unable to visit patient today, medical update was provided. Receptive to rescheduling family meeting for a later day. Case discussed with Dr. Bryson, plan to med extubate today, patient likely to regain medical decision-making capacity after extubation. Will readdress goals of care once patient is able to participate. Case discussed with bedside RN Izabela. Advance Directives Living Will: Never completed Health Care Surrogate: Never completed Objective Vital Signs: Vital Signs 09/21/18 14:31 09/21/18 15:44 09/21/18 16:00 Temperature 99 F Pulse Rate 81 81 Respiratory Rate 6 L 22 Blood Pressure 147/67 H Pulse Oximetry 100 100 09/21/18 17:45 09/21/18 18:00 09/21/18 18:15 Temperature Pulse Rate 82 82 82 Respiratory Rate 9 L 14 14 Blood Pressure 110/58 L 111/58 L 108/67 Pulse Oximetry 100 100 100 09/21/18 18:30 09/21/18 18:45 09/21/18 19:00 Temperature Pulse Rate 80 82 81 Respiratory Rate 19 12 7 L Blood Pressure 95/55 L 107/57 L 104/59 L Pulse Oximetry 100 100 100 09/21/18 19:15 09/21/18 19:30 09/21/18 19:45 Temperature Pulse Rate 81 80 80 Respiratory Rate 20 19 18 Blood Pressure 100/57 L 100/57 L 95/50 L Pulse Oximetry 100 100 100 09/21/18 19:47 09/21/18 19:50 09/21/18 20:00 Temperature 98.6 F Pulse Rate 81 85 Respiratory Rate 13 7 L 19 Blood Pressure 121/58 L Pulse Oximetry 100 100 09/21/18 20:15 09/21/18 20:30 09/21/18 20:45 Temperature Pulse Rate 84 89 82 Respiratory Rate 15 26 H 6 L Blood Pressure 101/66 141/61 H 96/51 L Pulse Oximetry 100 100 100 09/21/18 21:00 09/21/18 21:15 09/21/18 21:30 Temperature Pulse Rate 82 81 81 Respiratory Rate 27 H 14 23 Blood Pressure 89/55 L 90/55 L 94/50 L Pulse Oximetry 100 100 100 09/21/18 21:45 09/21/18 22:00 09/21/18 22:15 Temperature Pulse Rate 80 80 80 Respiratory Rate 23 15 22 Blood Pressure 87/50 L 85/50 L 100/56 L Pulse Oximetry 100 100 100 09/21/18 22:30 09/21/18 22:45 09/21/18 23:00 Temperature Pulse Rate 80 78 85 Respiratory Rate 10 L 22 17 Blood Pressure 100/55 L 85/46 L 124/60 Pulse Oximetry 100 100 100 09/21/18 23:15 09/21/18 23:30 09/21/18 23:45 Temperature Pulse Rate 80 80 78 Respiratory Rate 13 25 H 21 Blood Pressure 105/58 L 107/57 L 96/50 L Pulse Oximetry 100 100 100 09/22/18 00:00 09/22/18 00:15 09/22/18 00:30 Temperature 98.1 F Pulse Rate 77 78 77 Respiratory Rate 23 20 21 Blood Pressure 89/50 L 97/55 L 95/50 L Pulse Oximetry 100 100 100 09/22/18 00:45 09/22/18 01:00 09/22/18 01:11 Temperature Pulse Rate 78 75 77 Respiratory Rate 14 20 7 L Blood Pressure 95/53 L 92/54 L Pulse Oximetry 100 100 09/22/18 01:15 09/22/18 01:39 09/22/18 01:45 Temperature Pulse Rate 78 82 79 Respiratory Rate 27 H 10 L 8 L Blood Pressure 98/56 L 116/60 108/57 L Pulse Oximetry 100 100 100 09/22/18 02:00 09/22/18 02:15 09/22/18 02:30 Temperature Pulse Rate 80 81 81 Respiratory Rate 15 21 20 Blood Pressure 109/60 113/63 111/56 L Pulse Oximetry 100 100 100 09/22/18 02:45 09/22/18 03:00 09/22/18 03:15 Temperature Pulse Rate 82 83 83 Respiratory Rate 17 17 16 Blood Pressure 112/61 114/57 L 111/59 L Pulse Oximetry 100 100 100 09/22/18 03:30 09/22/18 03:45 09/22/18 04:00 Temperature 97.9 F Pulse Rate 83 82 82 Respiratory Rate 17 14 16 Blood Pressure 114/61 123/56 L 112/60 Pulse Oximetry 100 100 100 09/22/18 04:15 09/22/18 04:28 09/22/18 04:30 Temperature Pulse Rate 82 81 82 Respiratory Rate 13 7 L 17 Blood Pressure 112/62 114/67 Pulse Oximetry 100 100 100 09/22/18 04:45 09/22/18 05:00 09/22/18 05:15 Temperature Pulse Rate 81 81 81 Respiratory Rate 13 8 L 10 L Blood Pressure 116/65 115/63 115/63 Pulse Oximetry 100 100 100 09/22/18 05:30 09/22/18 05:45 09/22/18 06:00 Temperature Pulse Rate 87 81 81 Respiratory Rate 18 19 13 Blood Pressure 120/67 111/61 107/57 L Pulse Oximetry 100 100 100 09/22/18 06:15 09/22/18 06:30 09/22/18 06:45 Temperature Pulse Rate 82 83 82 Respiratory Rate 20 8 L 15 Blood Pressure 110/61 110/61 111/62 Pulse Oximetry 100 100 100 09/22/18 07:00 09/22/18 07:15 09/22/18 07:30 Temperature Pulse Rate 83 83 82 Respiratory Rate 15 17 12 Blood Pressure 110/60 109/57 L 102/58 L Pulse Oximetry 100 100 100 09/22/18 07:45 09/22/18 08:00 09/22/18 08:15 Temperature 98.2 F Pulse Rate 82 82 84 Respiratory Rate 17 19 12 Blood Pressure 107/56 L 105/57 L 103/56 L Pulse Oximetry 100 100 100 09/22/18 08:30 09/22/18 08:45 09/22/18 09:00 Temperature Pulse Rate 89 88 97 H Respiratory Rate 13 17 38 H Blood Pressure 124/64 123/58 L 130/76 Pulse Oximetry 100 100 100 09/22/18 09:15 09/22/18 09:30 09/22/18 09:45 Temperature Pulse Rate 93 H 93 H 92 H Respiratory Rate 26 H 27 H 25 H Blood Pressure 106/58 L 108/56 L 108/57 L Pulse Oximetry 100 100 100 09/22/18 10:00 09/22/18 10:15 09/22/18 10:30 Temperature Pulse Rate 100 H 92 H 93 H Respiratory Rate 29 H 24 24 Blood Pressure 121/69 116/64 117/59 L Pulse Oximetry 100 100 100 09/22/18 10:45 09/22/18 11:31 09/22/18 11:32 Temperature Pulse Rate 93 H 88 Respiratory Rate 19 16 19 Blood Pressure 116/61 Pulse Oximetry 100 100 09/22/18 12:00 Temperature Pulse Rate 88 Respiratory Rate Blood Pressure Pulse Oximetry Intake & Output 09/21/18 09/22/18 09/22/18 18:59 06:59 18:59 Intake Total 473 / 473 458 / 458 Balance 473 / 473 458 / 458 Weight 48.1 kg Intake: Tube Feeding 273 / 273 398 / 398 Tube Irrigant 60 / 60 Water Bolus Amount 200 / 200 Other: Date of Last Bowel Movement 09/21/18 09/22/18 09/22/18 # Bowel Movements 1 # Incontinent Bowel Movements 1 Physical Exam: CONSTITUTIONAL/GENERAL: This is a AA female patient currently intubated on [facility] vent. Following simple commands. TUBES/LINES/DRAINS: PIV, Vas-Cath, ETT, OGT SKIN: No jaundice, rashes, or lesions. Ecchymoses on upper extremities. No wounds seen anteriorly. Skin temperature appropriate. Not diaphoretic. HEAD: Atraumatic. Normocephalic. EYES: Pupils equal and round and reactive. Extraocular motions intact. No scleral icterus. No injection or drainage. Fundi not examined. ENT: Hearing grossly normal. Nose without bleeding or purulent drainage. NECK: Trachea midline. Supple, nontender. CARDIOVASCULAR: Regular rate and rhythm. Weak right pedal pulses. RESPIRATORY/CHEST: Intubated on mechanical vent. Clear to auscultation. Breath sounds equal bilaterally. GASTROINTESTINAL: Abdomen soft, non-tender, nondistended. No guarding. Bowel sounds present. GENITOURINARY: Without palpable bladder distension. North catheter in place. MUSCULOSKELETAL: AVF in the left arm with palpable thrill. Status post left BKA. Right foot with toe amputations noted. NEUROLOGICAL: Following simple commands. responds to yes/no questions by nodding /shaking head PSYCHIATRIC: No obvious anxiety/depression. Calm. Diagnostic Tests Laboratory: Laboratory Results - last 72 hr 09/18/18 09/19/18 09/20/18 23:33 17:40 00:11 WBC RBC Hgb Hct MCV MCH MCHC RDW Plt Count MPV PT INR APTT Sodium Potassium Chloride Carbon Dioxide Anion Gap BUN Creatinine Estimated GFR POC Glucose 152 H 110 129 H Random Glucose Calcium Phosphorus Magnesium Procalcitonin 09/20/18 09/20/18 09/20/18 04:05 04:06 05:08 WBC 9.2 RBC 3.32 L Hgb 8.8 L Hct 27.4 L MCV 82.5 MCH 26.6 L MCHC 32.3 RDW 18.7 H Plt Count 212 MPV 10.2 PT INR APTT Sodium 138 Potassium 3.6 Chloride 95 L Carbon Dioxide 29.5 Anion Gap 14 BUN 59 H Creatinine 5.31 H Estimated GFR 10 L POC Glucose 247 H Random Glucose 210 H Calcium 7.8 L Phosphorus 3.9 Magnesium 2.5 Procalcitonin 09/20/18 09/20/18 09/20/18 11:22 12:46 14:15 WBC RBC Hgb Hct MCV MCH MCHC RDW Plt Count MPV PT 12.0 H INR 1.2 APTT 22.5 L Sodium Potassium Chloride Carbon Dioxide Anion Gap BUN Creatinine Estimated GFR POC Glucose 154 H Random Glucose Calcium Phosphorus Magnesium Procalcitonin 17.73 H 09/20/18 09/20/18 09/21/18 17:55 23:56 04:09 WBC 8.7 RBC 3.22 L Hgb 8.7 L Hct 26.5 L MCV 82.1 MCH 26.9 L MCHC 32.8 RDW 18.5 H Plt Count 219 MPV 11.6 H PT INR APTT Sodium Potassium Chloride Carbon Dioxide Anion Gap BUN Creatinine Estimated GFR POC Glucose 77 85 Random Glucose Calcium Phosphorus Magnesium Procalcitonin 09/21/18 09/21/18 09/21/18 04:09 05:21 11:53 WBC RBC Hgb Hct MCV MCH MCHC RDW Plt Count MPV PT INR APTT Sodium 141 Potassium 3.8 Chloride 100 Carbon Dioxide 29.8 Anion Gap 11 BUN 34 H Creatinine 3.74 H Estimated GFR 15 L POC Glucose 109 152 H Random Glucose 83 D Calcium 8.7 D Phosphorus 3.3 Magnesium 2.3 Procalcitonin 09/21/18 09/22/18 09/22/18 17:22 00:14 06:01 WBC 8.6 RBC 3.00 L Hgb 8.1 L Hct 24.9 L MCV 82.9 MCH 27.1 MCHC 32.7 RDW 18.4 H Plt Count 223 MPV 11.4 H PT INR APTT Sodium Potassium Chloride Carbon Dioxide Anion Gap BUN Creatinine Estimated GFR POC Glucose 80 126 H Random Glucose Calcium Phosphorus Magnesium Procalcitonin 09/22/18 09/22/18 09/22/18 06:01 06:31 12:20 WBC RBC Hgb Hct MCV MCH MCHC RDW Plt Count MPV PT INR APTT Sodium 138 Potassium 4.1 Chloride 97 L Carbon Dioxide 31.0 Anion Gap 10 BUN 47 H Creatinine 4.72 H Estimated GFR 12 L POC Glucose 196 H 144 H Random Glucose 167 H Calcium 8.5 Phosphorus 5.4 H D Magnesium 2.6 H Procalcitonin Result Diagrams: 09/22/18 06:01 09/22/18 06:01 Procedures: 09/09/2018: To OR for pseudoaneurysm removal with AVF revision 09/09/2018: Right IJ dialysis catheter placed 09/13/2018: Endotracheal intubation 09/13/2018: Left groin arterial line 09/13/2018: Right groin central line 09/15/2018: Right groin central line discontinued 09/21/2018: Vas-Cath placement Assessment and Plan - Disease Oriented Problem List (1) Metabolic encephalopathy (2) Severe sepsis (3) Hyperkalemia (4) ESRD (end stage renal disease) (5) CAD (coronary artery disease) (6) PAD (peripheral artery disease) (7) Diabetes (8) Hypertension (9) Ischemic cardiomyopathy - Symptom Scale (1) Pain 0-10 Scale: Unable to quantify Pertinent Non-Medical Issues: Psychosocial: Patient listed as , however daughter reports that she believes the patient has prior Deon Moraes. She has 2 children , daughter Angelina and son. Spiritual: No hindu affiliation. Legal: No advance directives completed. Ethical issues impacting care: No ethical issues identified. 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 Patient admitted secondary to sepsis and respiratory failure requiring intubation and mechanical ventilation. Patient with multiple comorbidities and overall poor prognosis for prolonged survival or improved quality of life. She remains at a very high risk for further complications, continued decline and . Code Status: Full Code Plan: * CODE STATUS: FULL CODE * HEALTHCARE DECISION-MAKING: Patient unable to participate at this time in medical decision making secondary to clinical condition, intubated on mechanical ventilation. She is likely to regain medical decision-making capacity once medically extubated. If patient is unable to participate in medical decision making, unclear at this time who is the legal healthcare proxy decision maker. Patient is listed as , however daughter thinks that she has . Patient has 2 adult children. Pending [employer] report with additional contact information. * GOALS OF CARE: Goals remain aggressive at this time. Patient has refused in the past workup for suspicious renal mass. * SYMPTOMS: Pain: Multifactorial. Possible contributing factors include infection, impaired skin integrity, impaired circulation, recent invasive procedures, invasive lines etc. [place] 5/325 and IV morphine 2 mg available as needed. Patient has received 1 dose of morphine in the past 24 hours. Palliative care recommends discontinuing morphine in the setting of end- stage renal disease given high risk for neurotoxicity. Recommending hydromorphone 0.25mg IV for moderate pain / 0.5mg for severe pain IV q4hrs PRN. Debility: Patient is a frail, cachectic female with multiple comorbid conditions. Family states she is living independently in her own home and refuses out; they feel this has become a safety issue for the patient. Recommendations for SNF placement with rehab upon discharge * Palliative care will continue to follow this patient throughout her hospitalization to establish trust, assist with symptom management and clarification of medical treatment goals. Time Spent Total Floor Time (mins): 26 (Total time to include review and summarization of available records, physical exam, telephone conversation with daughter, case discussion with bedside RN.) >50% Time in Counseling or Coordination of Care: Yes (Total visit time = 26 minutes; > 50% spent counseling/coordinating care) Attestation Attestation: To help prompt me to consider important information that might be impacting today's encounter and assessment, information from prior notes written by myself or my colleagues may have been "brought forward" into today's note. My signature on this note, however, is an attestation that I personally performed the exam, history, and/or decision-making noted today, and, unless otherwise indicated, the interactions with patient, family, and staff as well as the review of records all occurred today. I also attest that the listed assessment and stated plan reflect my best clinical judgment today based on the combination of historical information, prior notes, and today's exam/ interactions. When time spent is documented, it refers only to time spent today by the signer, or if indicated, combined time spent today by collaborating physician/nurse practitioner.
--- NOTE | 2018-09-22 14:40 | P.PNCC ---
Subjective Subjective Remarks/Hospital Course: No history is obtainable from the patient due to altered mental status. All history obtained from chart review and discussion with ED attending. Patient is a 58-year-old -[place] female with past medical history of type 2 diabetes, hypertension, hyperlipidemia, ESRD on HD M/W/F, CHF Echo 03/22/07 EF 30 -35%, CAD, s/p LAD stent 06/08, status post left BKA. Patient was brought to the emergency department by EMS for altered mental status. Apparently patient was found lying on the floor between 2 dressers, missed two dialysis appointments. CT of the head was negative for acute findings chest x-ray showed pulmonary vascular congestion, left lower lobe atelectasis. CT abdomen pelvis showed large 6.2 cm renal mass which has grown in size since last scan in Nov 2017, and suspicious for renal cell carcinoma. Her WBC count was 23.4 with left shift, with altered mental status this was most likely secondary to severe sepsis. Patient was empirically given vancomycin and Zosyn in the ED after getting blood cultures. Also her potassium was 6.3 patient is receiving bicarb now and nephrology had been contacted for stat dialysis I evaluated the patient in the emergency department. Patient is very lethargic encephalopathic. She mumbles a few words but did not follow commands. Even though very lethargic at this point she is protecting airway. In addition to IV bicarb I will also give 5 units of insulin and IV dextrose. Antibiotics will be continued-renally dosed vancomycin and Zosyn. Will request nephrology and urology consult. At this time critically ill with severe sepsis. 09/07: Patient is lying in bed mental status seems to be improved alert oriented x2 today. Potassium is 5.3 chest x-ray shows pulmonary edema. Will request for repeat hemodialysis today 09/13: Rapid response team activated for patient hypotension and hypoxemia. After transfer to ICU I have found patient in agonal breathing and immediately intubated her with 7.5 ET tube. Shortly after intubation the patient was pulseless and 1 cycle of CPR was performed including one injection of epinephrine, chest compressions, and sodium bicarbonate injections. Family notified about the critical condition. 09/14: Remains encephalopathic, orally intubated on mechanical ventilation. 09/15: More awake, opening eyes, squeezing my fingers with her hands on command. Remains orally intubated on mechanical ventilation. 09/16: clinically improving. following commands. on PSV 15/5/40%. HD yesterday with good volume removal. 09/17: still failing SBTs- going apneic into back-up mode. will attempt again today. likely will need HD again today. still following commands. 09/18: During CPAP trials. T-max 100.5 currently 100. -3 L with hemodialysis. Arousable and follows commands. 09/19: T-max 100.6. Currently 100.1. Appears comfortable on PSV trial. Lasted greater than 9 hours 09/18 tolerating tube feeds. White blood cell count is normalized. Subjective 09/20: T-max 100.6. Remains on CPAP trial. Lasted for hours yesterday. Palliative care discussed with family possible right [id number] amputation. Hemodialysis catheter should be removed after dialysis today. Arousable while on the ventilator 09/21: Remains encephalopathic, orally intubated on mechanical ventilation. Nephrology planning new Vas-Cath to be placed by IR tomorrow for hemodialysis 09/22: Drowsy, easily arousable, orally intubated on mechanical ventilation. Hemodialysis today. CPAP trials to decide extubation Objective Vital Signs / I&O: Vital Signs 09/21/18 15:44 09/21/18 16:00 09/21/18 17:45 Temperature 99 F Pulse Rate 81 81 82 Respiratory Rate 6 L 22 9 L Blood Pressure 147/67 H 110/58 L Pulse Oximetry 100 100 09/21/18 18:00 09/21/18 18:15 09/21/18 18:30 Temperature Pulse Rate 82 82 80 Respiratory Rate 14 14 19 Blood Pressure 111/58 L 108/67 95/55 L Pulse Oximetry 100 100 100 09/21/18 18:45 09/21/18 19:00 09/21/18 19:15 Temperature Pulse Rate 82 81 81 Respiratory Rate 12 7 L 20 Blood Pressure 107/57 L 104/59 L 100/57 L Pulse Oximetry 100 100 100 09/21/18 19:30 09/21/18 19:45 09/21/18 19:47 Temperature Pulse Rate 80 80 Respiratory Rate 19 18 13 Blood Pressure 100/57 L 95/50 L Pulse Oximetry 100 100 100 09/21/18 19:50 09/21/18 20:00 09/21/18 20:15 Temperature 98.6 F Pulse Rate 81 85 84 Respiratory Rate 7 L 19 15 Blood Pressure 121/58 L 101/66 Pulse Oximetry 100 100 09/21/18 20:30 09/21/18 20:45 09/21/18 21:00 Temperature Pulse Rate 89 82 82 Respiratory Rate 26 H 6 L 27 H Blood Pressure 141/61 H 96/51 L 89/55 L Pulse Oximetry 100 100 100 09/21/18 21:15 09/21/18 21:30 09/21/18 21:45 Temperature Pulse Rate 81 81 80 Respiratory Rate 14 23 23 Blood Pressure 90/55 L 94/50 L 87/50 L Pulse Oximetry 100 100 100 09/21/18 22:00 09/21/18 22:15 09/21/18 22:30 Temperature Pulse Rate 80 80 80 Respiratory Rate 15 22 10 L Blood Pressure 85/50 L 100/56 L 100/55 L Pulse Oximetry 100 100 100 09/21/18 22:45 09/21/18 23:00 09/21/18 23:15 Temperature Pulse Rate 78 85 80 Respiratory Rate 22 17 13 Blood Pressure 85/46 L 124/60 105/58 L Pulse Oximetry 100 100 100 09/21/18 23:30 09/21/18 23:45 09/22/18 00:00 Temperature 98.1 F Pulse Rate 80 78 77 Respiratory Rate 25 H 21 23 Blood Pressure 107/57 L 96/50 L 89/50 L Pulse Oximetry 100 100 100 09/22/18 00:15 09/22/18 00:30 09/22/18 00:45 Temperature Pulse Rate 78 77 78 Respiratory Rate 20 21 14 Blood Pressure 97/55 L 95/50 L 95/53 L Pulse Oximetry 100 100 100 09/22/18 01:00 09/22/18 01:11 09/22/18 01:15 Temperature Pulse Rate 75 77 78 Respiratory Rate 20 7 L 27 H Blood Pressure 92/54 L 98/56 L Pulse Oximetry 100 100 09/22/18 01:39 09/22/18 01:45 09/22/18 02:00 Temperature Pulse Rate 82 79 80 Respiratory Rate 10 L 8 L 15 Blood Pressure 116/60 108/57 L 109/60 Pulse Oximetry 100 100 100 09/22/18 02:15 09/22/18 02:30 09/22/18 02:45 Temperature Pulse Rate 81 81 82 Respiratory Rate 21 20 17 Blood Pressure 113/63 111/56 L 112/61 Pulse Oximetry 100 100 100 09/22/18 03:00 09/22/18 03:15 09/22/18 03:30 Temperature Pulse Rate 83 83 83 Respiratory Rate 17 16 17 Blood Pressure 114/57 L 111/59 L 114/61 Pulse Oximetry 100 100 100 09/22/18 03:45 09/22/18 04:00 09/22/18 04:15 Temperature 97.9 F Pulse Rate 82 82 82 Respiratory Rate 14 16 13 Blood Pressure 123/56 L 112/60 112/62 Pulse Oximetry 100 100 100 09/22/18 04:28 09/22/18 04:30 09/22/18 04:45 Temperature Pulse Rate 81 82 81 Respiratory Rate 7 L 17 13 Blood Pressure 114/67 116/65 Pulse Oximetry 100 100 100 09/22/18 05:00 09/22/18 05:15 09/22/18 05:30 Temperature Pulse Rate 81 81 87 Respiratory Rate 8 L 10 L 18 Blood Pressure 115/63 115/63 120/67 Pulse Oximetry 100 100 100 09/22/18 05:45 09/22/18 06:00 09/22/18 06:15 Temperature Pulse Rate 81 81 82 Respiratory Rate 19 13 20 Blood Pressure 111/61 107/57 L 110/61 Pulse Oximetry 100 100 100 09/22/18 06:30 09/22/18 06:45 09/22/18 07:00 Temperature Pulse Rate 83 82 83 Respiratory Rate 8 L 15 15 Blood Pressure 110/61 111/62 110/60 Pulse Oximetry 100 100 100 09/22/18 07:15 09/22/18 07:30 09/22/18 07:45 Temperature Pulse Rate 83 82 82 Respiratory Rate 17 12 17 Blood Pressure 109/57 L 102/58 L 107/56 L Pulse Oximetry 100 100 100 09/22/18 08:00 09/22/18 08:15 09/22/18 08:30 Temperature 98.2 F Pulse Rate 82 84 89 Respiratory Rate 19 12 13 Blood Pressure 105/57 L 103/56 L 124/64 Pulse Oximetry 100 100 100 09/22/18 08:45 09/22/18 09:00 09/22/18 09:15 Temperature Pulse Rate 88 97 H 93 H Respiratory Rate 17 38 H 26 H Blood Pressure 123/58 L 130/76 106/58 L Pulse Oximetry 100 100 100 09/22/18 09:30 09/22/18 09:45 09/22/18 10:00 Temperature Pulse Rate 93 H 92 H 100 H Respiratory Rate 27 H 25 H 29 H Blood Pressure 108/56 L 108/57 L 121/69 Pulse Oximetry 100 100 100 09/22/18 10:15 09/22/18 10:30 09/22/18 10:45 Temperature Pulse Rate 92 H 93 H 93 H Respiratory Rate 24 24 19 Blood Pressure 116/64 117/59 L 116/61 Pulse Oximetry 100 100 100 09/22/18 11:00 09/22/18 11:15 09/22/18 11:30 Temperature Pulse Rate 90 85 89 Respiratory Rate 23 19 26 H Blood Pressure 112/59 L 108/56 L 125/66 Pulse Oximetry 100 100 100 09/22/18 11:31 09/22/18 11:32 09/22/18 11:45 Temperature Pulse Rate 88 86 Respiratory Rate 16 19 21 Blood Pressure 112/57 L Pulse Oximetry 100 100 10/31/18 12:00 09/22/18 12:15 09/22/18 12:30 Temperature Pulse Rate 87 85 87 Respiratory Rate 22 25 H 22 Blood Pressure 111/58 L 108/59 L 117/65 Pulse Oximetry 100 100 100 09/22/18 12:45 09/22/18 13:00 09/22/18 13:15 Temperature Pulse Rate 88 93 H 102 H Respiratory Rate 24 31 H 8 L Blood Pressure 116/62 130/70 123/66 Pulse Oximetry 100 100 100 09/22/18 13:30 09/22/18 13:45 09/22/18 14:00 Temperature Pulse Rate 103 H 102 H 104 H Respiratory Rate 16 14 19 Blood Pressure 127/72 128/70 143/79 H Pulse Oximetry 100 100 100 09/22/18 14:15 Temperature Pulse Rate 103 H Respiratory Rate 19 Blood Pressure 124/63 Pulse Oximetry 100 Intake & Output 09/21/18 09/22/18 09/22/18 18:59 06:59 18:59 Intake Total 473 / 473 458 / 458 Balance 473 / 473 458 / 458 Weight 48.1 kg Intake: Tube Feeding 273 / 273 398 / 398 Tube Irrigant 60 / 60 Water Bolus Amount 200 / 200 Other: Date of Last Bowel Movement 09/21/18 09/22/18 09/22/18 # Bowel Movements 1 # Incontinent Bowel Movements 1 Result Diagrams: 09/22/18 06:01 09/22/18 06:01 Objective Remarks: GENERAL: 58-year-old AA female, lying in bed intubated. SKIN: Warm and dry. No rash HEAD: Atraumatic. Normocephalic. EYES: Pupils equal and round, 2 mm reactive. No scleral icterus. ENT: No nasal bleeding or discharge. Mucous membranes moist NECK: Trachea midline. No JVD. CARDIOVASCULAR: RRR. S1, S2. No S4. 2/6 murmur systolic. RESPIRATORY: On mechanical ventilation, equal chest rise. Currently on PSV trials GASTROINTESTINAL: Abdomen soft, non-tender, nondistended. MUSCULOSKELETAL: AV fistula in left upper arm with palpable thrill. s/p L BKA NEUROLOGICAL: Drowsy, arousable, follows commands, orally intubated on mechanical ventilation Assessment and Plan - Assessment and Plan Plan: NEURO/PSYCH: Toxic metabolic encephalopathy- improving. History of peripheral neuropathy History of glaucoma Avoid any sedating medication CT head negative for bleed. Encephalopathy most likely from metabolic causes/sepsis. EEG generalized slowing 09/15 MRI brain 09/15 no acute disease. Neurology has followed RESP: Acute hypoxic and hypercarbic Respiratory failure Pulmonary edema Currently on PSV trial. 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 Ramirez 11/26/17 Peripheral arterial disease Hypertension Dyslipidemia Continue baby aspirin 81 mg daily severe MR continues to require volume removal. HD per nephrology. Currently not requiring vasopressors and her anti-pretenses Cardiogram revealed EF of 30%. PAP 57 mmHg. Severe TR. Mobile mitral valve mass. Will need right above or below the knee amputation to lower extremity. Palliative care consult to discuss with family options. Patient did not but her wishes known prior to intubation. GI: Acute protein calorie malnutrition- severe Continue 10 mg twice daily PO famotidine Tolerating Nepro tube feeds at 40 cc an hour per nutrition recommendation. Docusate sodium/senna twice daily for bowel regimen FEN/RENAL: ESRD Large right renal mass suspicious for renal cell carcinoma Hemodialysis Thursday/Thursday/Thursday per nephrology, Dr Ahumada. Urology consulted for right renal mass (previously refused work up) Sevelamer 1600 mg 3 times daily for hyperphosphatemia New Vascath placed on 09/21 by IR ID: Severe sepsis [place] Mitral Valve infective endocarditis Source of sepsis: mitral valve endocarditis, infected AV fistula IV vancomycin per ID Dr. Noemí Nj removed. New vascath to be placed prior to HD on 09/22 HEME: Anemia of chronic kidney disease Monitor CBC daily. Follow trends. No indication for blood transfusion at this time ENDO: Diabetes mellitus, type II med-dose insulin sliding scale q6h PROPH: Heparin 5000 subcutaneous every 12 for DVT prophylaxis. 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
[2018-09-22] MEDS: Vancomycin Inj 1,250 MG in Sodium Chlor 0.9% Inj 250 ML IV.SIG SCH (15:00)
[2018-09-23] MEDS: Morphine Inj 4 MG/ML Vial IV.PUSH PRN (05:06)
[2018-09-23] MEDS: Heparin - SQ 10,000 UNITS/ML Vial SQ SCH ×2 (05:07→20:05)
[2018-09-23] MEDS: Insulin NovoLIN Regular Correctional Sugar Inj SQ SCH ×4 (05:08→20:05)
[2018-09-23 06:18] LABS: Hematocrit 25.1 % (35.0-46.0); Hemoglobin 8.1 gm/dL (11.6-15.3); Mean Corpuscular HGB Conc 32.1 % (32.0-36.0); Mean Corpuscular Hemoglobin 26.8 pg (27.0-34.0); Mean Corpuscular Volume 83.4 fL (80.0-100.0); Mean Platelet Volume 10.7 fL (7.0-11.0); Platelet Count 245 th/mm3 (150-450); Red Blood Count 3.01 mil/mm3 (4.00-5.30); Red Cell Distribution Width 17.7 % (11.6-17.2); White Blood Count 10.9 th/mm3 (4.0-11.0)
[2018-09-23 07:02] LABS: Calcium 8.6 mg/dL (8.5-10.1); Carbon Dioxide 32.6 meq/L (21.0-32.0); Magnesium 2.5 mg/dL (1.5-2.5); Potassium 3.8 meq/L (3.5-5.1)
[2018-09-23] MEDS: Senna/Docusate Sodium 8.6/50 MG Tablet PO SCH ×2 (09:09→22:26)
[2018-09-23] MEDS: Famotidine 20 MG Tablet PO SCH ×2 (09:09→22:26)
--- NOTE | 2018-09-23 09:52 | P.PNCC ---
Subjective Subjective Remarks/Hospital Course: No history is obtainable from the patient due to altered mental status. All history obtained from chart review and discussion with ED attending. Patient is a 58-year-old -[place] female with past medical history of type 2 diabetes, hypertension, hyperlipidemia, ESRD on HD M/W/F, CHF Echo 03/22/07 EF 30 -35%, CAD, s/p LAD stent 06/08, status post left BKA. Patient was brought to the emergency department by EMS for altered mental status. Apparently patient was found lying on the floor between 2 dressers, missed two dialysis appointments. CT of the head was negative for acute findings chest x-ray showed pulmonary vascular congestion, left lower lobe atelectasis. CT abdomen pelvis showed large 6.2 cm renal mass which has grown in size since last scan in Nov 2017, and suspicious for renal cell carcinoma. Her WBC count was 23.4 with left shift, with altered mental status this was most likely secondary to severe sepsis. Patient was empirically given vancomycin and Zosyn in the ED after getting blood cultures. Also her potassium was 6.3 patient is receiving bicarb now and nephrology had been contacted for stat dialysis I evaluated the patient in the emergency department. Patient is very lethargic encephalopathic. She mumbles a few words but did not follow commands. Even though very lethargic at this point she is protecting airway. In addition to IV bicarb I will also give 5 units of insulin and IV dextrose. Antibiotics will be continued-renally dosed vancomycin and Zosyn. Will request nephrology and urology consult. At this time critically ill with severe sepsis. 09/07: Patient is lying in bed mental status seems to be improved alert oriented x2 today. Potassium is 5.3 chest x-ray shows pulmonary edema. Will request for repeat hemodialysis today 09/13: Rapid response team activated for patient hypotension and hypoxemia. After transfer to ICU I have found patient in agonal breathing and immediately intubated her with 7.5 ET tube. Shortly after intubation the patient was pulseless and 1 cycle of CPR was performed including one injection of epinephrine, chest compressions, and sodium bicarbonate injections. Family notified about the critical condition. 09/14: Remains encephalopathic, orally intubated on mechanical ventilation. 09/15: More awake, opening eyes, squeezing my fingers with her hands on command. Remains orally intubated on mechanical ventilation. 09/16: clinically improving. following commands. on PSV 15/5/40%. HD yesterday with good volume removal. 09/17: still failing SBTs- going apneic into back-up mode. will attempt again today. likely will need HD again today. still following commands. 09/18: During CPAP trials. T-max 100.5 currently 100. -3 L with hemodialysis. Arousable and follows commands. 09/19: T-max 100.6. Currently 100.1. Appears comfortable on PSV trial. Lasted greater than 9 hours 09/18 tolerating tube feeds. White blood cell count is normalized. Subjective 09/20: T-max 100.6. Remains on CPAP trial. Lasted for hours yesterday. Palliative care discussed with family possible right [id number] amputation. Hemodialysis catheter should be removed after dialysis today. Arousable while on the ventilator 09/21: Remains encephalopathic, orally intubated on mechanical ventilation. Nephrology planning new Vas-Cath to be placed by IR tomorrow for hemodialysis 09/22: Drowsy, easily arousable, orally intubated on mechanical ventilation. Hemodialysis today. CPAP trials to decide extubation 09/23: Awake, orally intubated on mechanical ventilation, follows commands. On SIMV mode for weaning due to apneic episodes. Objective Vital Signs / I&O: Vital Signs 09/22/18 10:00 09/22/18 10:15 09/22/18 10:30 Temperature Pulse Rate 100 H 92 H 93 H Respiratory Rate 29 H 24 24 Blood Pressure 121/69 116/64 117/59 L Pulse Oximetry 100 100 100 09/22/18 10:45 09/22/18 11:00 09/22/18 11:15 Temperature Pulse Rate 93 H 90 85 Respiratory Rate 19 23 19 Blood Pressure 116/61 112/59 L 108/56 L Pulse Oximetry 100 100 100 09/22/18 11:30 09/22/18 11:31 09/22/18 11:32 Temperature Pulse Rate 89 88 Respiratory Rate 26 H 16 19 Blood Pressure 125/66 Pulse Oximetry 100 100 09/22/18 11:45 09/22/18 12:00 09/22/18 12:15 Temperature Pulse Rate 86 87 85 Respiratory Rate 21 22 25 H Blood Pressure 112/57 L 111/58 L 108/59 L Pulse Oximetry 100 100 100 09/22/18 12:30 09/22/18 12:45 09/22/18 13:00 Temperature Pulse Rate 87 88 93 H Respiratory Rate 22 24 31 H Blood Pressure 117/65 116/62 130/70 Pulse Oximetry 100 100 100 09/22/18 13:15 09/22/18 13:30 09/22/18 13:45 Temperature Pulse Rate 102 H 103 H 102 H Respiratory Rate 8 L 16 14 Blood Pressure 123/66 127/72 128/70 Pulse Oximetry 100 100 100 09/22/18 14:00 09/22/18 14:15 09/22/18 14:30 Temperature Pulse Rate 104 H 103 H 100 H Respiratory Rate 19 19 19 Blood Pressure 143/79 H 124/63 119/65 Pulse Oximetry 100 100 100 09/22/18 14:45 09/22/18 15:00 09/22/18 15:15 Temperature Pulse Rate 106 H 104 H 104 H Respiratory Rate 23 28 H 23 Blood Pressure 123/72 128/68 125/78 Pulse Oximetry 100 100 100 09/22/18 15:30 09/22/18 15:45 09/22/18 16:00 Temperature Pulse Rate 101 H 101 H 104 H Respiratory Rate 25 H 29 H 20 Blood Pressure 135/85 141/73 H 165/80 H Pulse Oximetry 100 100 92 L 09/22/18 16:03 09/22/18 16:04 09/22/18 19:35 Temperature Pulse Rate 107 H Respiratory Rate 25 H 12 13 Blood Pressure Pulse Oximetry 100 100 09/22/18 19:37 09/22/18 20:00 09/23/18 00:00 Temperature 99.0 F 97.8 F Pulse Rate 102 H 101 H 100 H Respiratory Rate 17 11 L 25 H Blood Pressure 113/58 L 132/69 Pulse Oximetry 100 100 09/23/18 04:00 09/23/18 04:12 09/23/18 09:12 Temperature Pulse Rate 93 H Respiratory Rate 9 L 10 L 17 Blood Pressure 112/60 Pulse Oximetry 100 100 100 Intake & Output 09/22/18 09/23/18 09/23/18 18:59 06:59 18:59 Intake Total 484 / 484 516 / 516 Output Total 2550 / 2550 0 / 0 Balance -2066 / -2066 516 / 516 Weight 46.5 kg Intake: Oral 0 / 0 0 / 0 Tube Feeding 424 / 424 516 / 516 Tube Irrigant 60 / 60 Water Bolus Amount 0 / 0 Output: Urine 0 / 0 0 / 0 Stool 0 / 0 0 / 0 Urine/Stool Mix 0 / 0 0 / 0 Hemodialysis Amount 2500 / 2500 Estimated Blood Loss 50 / 50 Other: Post Void Residual 0 # Voids 0 # Incontinent Voids 0 # Urine Diapers 0 Date of Last Bowel Movement 09/22/18 09/22/18 # Bowel Movements 0 0 # Incontinent Bowel Movements 1 0 Result Diagrams: 09/23/18 05:30 09/23/18 05:30 Objective Remarks: GENERAL: 58-year-old AA female, lying in bed intubated. SKIN: Warm and dry. No rash HEAD: Atraumatic. Normocephalic. EYES: Pupils equal and round, 2 mm reactive. No scleral icterus. ENT: No nasal bleeding or discharge. Mucous membranes moist NECK: Trachea midline. No JVD. CARDIOVASCULAR: RRR. S1, S2. No S4. 2/6 murmur systolic. RESPIRATORY: On mechanical ventilation, equal chest rise. Currently on SIMV with PSV trials GASTROINTESTINAL: Abdomen soft, non-tender, nondistended. MUSCULOSKELETAL: AV fistula in left upper arm with palpable thrill. s/p L BKA NEUROLOGICAL: Drowsy, arousable, follows commands, orally intubated on mechanical ventilation Assessment and Plan - Assessment and Plan Plan: NEURO/PSYCH: Toxic metabolic encephalopathy- improving. History of peripheral neuropathy History of glaucoma Avoid any sedating medication CT head negative for bleed. Encephalopathy most likely from metabolic causes/sepsis. EEG generalized slowing 09/15 MRI brain 09/15 no acute disease. Neurology has followed RESP: Acute hypoxic and hypercarbic Respiratory failure Pulmonary edema Currently on SIMV with PSV trial. Will attempt CPAP trial. Patient gets apneic episodes. 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 Ramirez 11/26/17 Peripheral arterial disease Hypertension Dyslipidemia Continue baby aspirin 81 mg daily severe MR continues to require volume removal. HD per nephrology. Currently not requiring vasopressors and her anti-pretenses Cardiogram revealed EF of 30%. PAP 57 mmHg. Severe TR. [place] mitral valve mass. Will need right above or below the knee amputation to lower extremity. Palliative care consult to discuss with family options. Patient did not but her wishes known prior to intubation. GI: Acute protein calorie malnutrition- severe Continue 10 mg twice daily PO famotidine Tolerating Nepro tube feeds at 40 cc an hour per nutrition recommendation. Docusate sodium/senna twice daily for bowel regimen FEN/RENAL: ESRD Large right renal mass suspicious for renal cell carcinoma Hemodialysis Thursday/Thursday/Thursday per nephrology, Dr Ahumada. Urology consulted for right renal mass (previously refused work up) Sevelamer 1600 mg 3 times daily for hyperphosphatemia New Vascath placed on 09/21 by IR ID: Severe sepsis [place] Mitral Valve infective endocarditis Source of sepsis: mitral valve endocarditis, infected AV fistula IV vancomycin per ID Dr. Dowd Vascath removed. New vascath to be placed prior to HD on 09/22 HEME: Anemia of chronic kidney disease Monitor CBC daily. Follow trends. No indication for blood transfusion at this time ENDO: Diabetes mellitus, type II med-dose insulin sliding scale q6h PROPH: Heparin 5000 subcutaneous every 12 for DVT prophylaxis. 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
--- NOTE | 2018-09-23 11:56 | P.PNNP ---
Subjective Interval history: Patient is about the same. Very ill. Physical Exam Vital signs: Vital Signs 09/22/18 12:00 09/22/18 12:15 09/22/18 12:30 Temperature Pulse Rate 87 85 87 Respiratory Rate 22 25 H 22 Blood Pressure 111/58 L 108/59 L 117/65 Pulse Oximetry 100 100 100 09/22/18 12:45 09/22/18 13:00 09/22/18 13:15 Temperature Pulse Rate 88 93 H 102 H Respiratory Rate 24 31 H 8 L Blood Pressure 116/62 130/70 123/66 Pulse Oximetry 100 100 100 09/22/18 13:30 09/22/18 13:45 09/22/18 14:00 Temperature Pulse Rate 103 H 102 H 104 H Respiratory Rate 16 14 19 Blood Pressure 127/72 128/70 143/79 H Pulse Oximetry 100 100 100 09/22/18 14:15 09/22/18 14:30 09/22/18 14:45 Temperature Pulse Rate 103 H 100 H 106 H Respiratory Rate 19 19 23 Blood Pressure 124/63 119/65 123/72 Pulse Oximetry 100 100 100 09/22/18 15:00 09/22/18 15:15 09/22/18 15:30 Temperature Pulse Rate 104 H 104 H 101 H Respiratory Rate 28 H 23 25 H Blood Pressure 128/68 125/78 135/85 Pulse Oximetry 100 100 100 09/22/18 15:45 09/22/18 16:00 09/22/18 16:03 Temperature Pulse Rate 101 H 104 H 107 H Respiratory Rate 29 H 20 25 H Blood Pressure 141/73 H 165/80 H Pulse Oximetry 100 92 L 09/22/18 16:04 09/22/18 19:35 09/22/18 19:37 Temperature Pulse Rate 102 H Respiratory Rate 12 13 17 Blood Pressure Pulse Oximetry 100 100 09/22/18 20:00 09/23/18 00:00 09/23/18 04:00 Temperature 99.0 F 97.8 F Pulse Rate 101 H 100 H 93 H Respiratory Rate 11 L 25 H 9 L Blood Pressure 113/58 L 132/69 112/60 Pulse Oximetry 100 100 100 09/23/18 04:12 09/23/18 08:00 09/23/18 09:12 Temperature Pulse Rate 93 H Respiratory Rate 10 L 17 17 Blood Pressure Pulse Oximetry 100 100 100 Intake & Output 10/31/18 11/01/18 11/01/18 18:59 06:59 18:59 Intake Total 484 / 484 516 / 516 Output Total 2550 / 2550 0 / 0 Balance -2065 / -2065 516 / 516 Weight 46.5 kg Intake: Oral 0 / 0 0 / 0 Tube Feeding 424 / 424 516 / 516 Tube Irrigant 60 / 60 Water Bolus Amount 0 / 0 Output: Urine 0 / 0 0 / 0 Stool 0 / 0 0 / 0 Urine/Stool Mix 0 / 0 0 / 0 Hemodialysis Amount 2500 / 2500 Estimated Blood Loss 50 / 50 Other: Post Void Residual 0 # Voids 0 # Incontinent Voids 0 # Urine Diapers 0 Date of Last Bowel Movement 09/22/18 09/22/18 09/22/18 # Bowel Movements 0 0 # Incontinent Bowel Movements 1 0 Narrative: On the vent. Unresponsive today. Chest: vented breath sounds bilaterally, no rhonchi, no wheezing. Heart: RRR. 3/6 systolic murmur. No edema. s/p left BKA. Ischemic right lower extremity. Very frail, generalized muscle wasting. Assessment and Plan - Assessment (1) ESRD (end stage renal disease) Code(s): N18.6 - End stage renal disease Status: Deleted Plan: Dialysis MWF. She is s/p repair/excision of infected pseudoaneurysm of AVF, with apparent interposition bovine graft. Fistula pseudo aneurysm grossly infected. Previous steal history - no apparent signs of steal at this point. ---- (2) Hyperkalemia Code(s): E87.5 - Hyperkalemia Status: Deleted Plan: Improved. . (3) Renal mass Code(s): N28.89 - Other specified disorders of kidney and ureter Status: Acute Plan: Renal mass has grown in size, most likely malignancy. Urology note reviewed, to follow up after discharge. Previously the patient had refused workup. (4) Severe sepsis Code(s): A41.9 - Sepsis, unspecified organism; R65.20 - Severe sepsis without septic shock Status: Deleted Plan: MRSA sepsis, endocarditis. MRI of the brain negative for septic emboli. She has mitral valve vegetation. On Vancomycin. s/p excision of infected pseudoaneurysm of AVF. (5) CAD (coronary artery disease) Code(s): I25.10 - Atherosclerotic heart disease of [place] coronary artery without angina pectoris Status: Deleted (6) PAD (peripheral artery disease) Code(s): I73.9 - Peripheral vascular disease, unspecified Status: Deleted Plan: s/p left BKA. Poor circulation of right lower extremity. Vascular surgery following. Not a candidate for revascularization. (7) DM2 (diabetes mellitus, type 2) Code(s): E11.9 - Type 2 diabetes mellitus without complications Status: Deleted Plan: maintain blood glucose between 140 and 180 while hospitalized. - Attending Attestation Very poor prognosis. Unlikely to survive.
--- NOTE | 2018-09-23 12:27 | P.PNPAL ---
Reason for Visit Reason for visit: a. To assist with evaluation and management of symptoms including: pain, debility b. To assist medical decision maker(s) with: better understanding of current medical conditions; weighing benefits/burdens of medical treatment options; making medical treatment decisions. Subjective Subjective/Interval History: Palliative care follow-ups for assistance with pain and symptom management, family support and goals of care clarification. Patient seen in medical ICU, remains intubated on mechanical ventilation. Alert, following simple commands. Vascular surgery following, patient with worsening ischemia to right lower extremity secondary to severe PVD. Patient will required right AKA as well as revision of left BKA conversion to AKA, not a candidate for revascularization. Infectious disease following, 2D echo with MV vegetation, MRSA sepsis currently on vancomycin. Nephrology following, patient with end-stage renal disease hemodialysis dependent. Renal mass discovered in November 2017 which is suspicious of renal cancer, patient refused workup at that time. Patient with multiple comorbidities and overall poor prognosis for prolonged survival or improved quality of life. Ongoing attempts at weaning trials. Patient answering to simple yes/no questions, nodding head "yes" when asked if daughter Marina could help with medical decision making. Lengthy telephone conversation with patient's daughter Marina Clark. She reports that patient has 2 biological children, her brother Casey has been "out of the picture"for many years and it is unclear his location or contact information. Patient reported as , however, sister Micaela Bhatt reported that they have been for many years and is currently incapacitated residing [facility] [place] [facility] in [place], [place]. Reviewed with patient' s daughter at length patient's complicated past medical history, clinical course and current medical management. Daughter verbalized that patient "has been through a lot"and voiced concerns regarding her quality of life. Reviewed patient's multiple acute on chronic comorbidities with overall poor prognosis for survival. Daughter wishing to participating medical decision making. Daughter electing alternative code for cardiac only/do not reintubate if patient is able to medically extubate. Daughter verbalized not wishing for patient to undergo any additional surgical interventions such as tracheostomy placement or leg amputation/revision of previous amputation. Goal of treatment at this time is to allow a few more days to reevaluate goals of care. Daughter tearful, emotional support provided. Bedside conversation with patient's sister Micaela Nova, she also verbalized concerns of patient's quality of life and very poor prognosis. Sister deferring medical decision making to patient's daughter. Case discussed with Dr. Bryson and bedside RN Faye. Patient's daughter receptive to palliative care follow-ups. Advance Directives Living Will: Never completed Health Care Surrogate: Never completed Health Care Surrogate Name and Number: HCP daughter Marina Clark Objective Vital Signs: Vital Signs 09/22/18 12:15 09/22/18 12:30 09/22/18 12:45 Temperature Pulse Rate 85 87 88 Respiratory Rate 25 H 22 24 Blood Pressure 108/59 L 117/65 116/62 Pulse Oximetry 100 100 100 09/22/18 13:00 09/22/18 13:15 09/22/18 13:30 Temperature Pulse Rate 93 H 102 H 103 H Respiratory Rate 31 H 8 L 16 Blood Pressure 130/70 123/66 127/72 Pulse Oximetry 100 100 100 09/22/18 13:45 09/22/18 14:00 09/22/18 14:15 Temperature Pulse Rate 102 H 104 H 103 H Respiratory Rate 14 19 19 Blood Pressure 128/70 143/79 H 124/63 Pulse Oximetry 100 100 100 09/22/18 14:30 09/22/18 14:45 09/22/18 15:00 Temperature Pulse Rate 100 H 106 H 104 H Respiratory Rate 19 23 28 H Blood Pressure 119/65 123/72 128/68 Pulse Oximetry 100 100 100 09/22/18 15:15 09/22/18 15:30 09/22/18 15:45 Temperature Pulse Rate 104 H 101 H 101 H Respiratory Rate 23 25 H 29 H Blood Pressure 125/78 135/85 141/73 H Pulse Oximetry 100 100 100 09/22/18 16:00 09/22/18 16:03 09/22/18 16:04 Temperature Pulse Rate 104 H 107 H Respiratory Rate 20 25 H 12 Blood Pressure 165/80 H Pulse Oximetry 92 L 100 09/22/18 19:35 09/22/18 19:37 09/22/18 20:00 Temperature 99.0 F Pulse Rate 102 H 101 H Respiratory Rate 13 17 11 L Blood Pressure 113/58 L Pulse Oximetry 100 100 09/23/18 00:00 09/23/18 04:00 09/23/18 04:12 Temperature 97.8 F Pulse Rate 100 H 93 H Respiratory Rate 25 H 9 L 10 L Blood Pressure 132/69 112/60 Pulse Oximetry 100 100 100 09/23/18 08:00 09/23/18 09:12 Temperature Pulse Rate 93 H Respiratory Rate 17 17 Blood Pressure Pulse Oximetry 100 100 Intake & Output 09/22/18 09/23/18 09/23/18 18:59 06:59 18:59 Intake Total 484 / 484 516 / 516 Output Total 2550 / 2550 0 / 0 Balance -206 / -2065 516 / 516 Weight 46.5 kg Intake: Oral 0 / 0 0 / 0 Tube Feeding 424 / 424 516 / 516 Tube Irrigant 60 / 60 Water Bolus Amount 0 / 0 Output: Urine 0 / 0 0 / 0 Stool 0 / 0 0 / 0 Urine/Stool Mix 0 / 0 0 / 0 Hemodialysis Amount 2500 / 2500 Estimated Blood Loss 50 / 50 Other: Post Void Residual 0 # Voids 0 # Incontinent Voids 0 # Urine Diapers 0 Date of Last Bowel Movement 09/22/18 09/22/18 09/22/18 # Bowel Movements 0 0 # Incontinent Bowel Movements 1 0 Physical Exam: CONSTITUTIONAL/GENERAL: This is a AA female patient currently intubated on mech vent. Following simple commands. TUBES/LINES/DRAINS: PIV, Vas-Cath, ETT, OGT SKIN: No jaundice, rashes, or lesions. Ecchymoses on upper extremities. No wounds seen anteriorly. Skin temperature appropriate. Not diaphoretic. HEAD: Atraumatic. Normocephalic. EYES: Pupils equal and round and reactive. Extraocular motions intact. No scleral icterus. No injection or drainage. Fundi not examined. ENT: Hearing grossly normal. Nose without bleeding or purulent drainage. NECK: Trachea midline. Supple, nontender. CARDIOVASCULAR: Regular rate and rhythm. Weak right pedal pulses. RESPIRATORY/CHEST: Intubated on mechanical vent. Coarse breath sounds. GASTROINTESTINAL: Abdomen soft, non-tender, nondistended. Bowel sounds present. GENITOURINARY: Without palpable bladder distension. North catheter in place. MUSCULOSKELETAL: AVF in the left arm with palpable thrill. Status post left BKA. Right foot with toe amputations noted. NEUROLOGICAL: Following simple commands. responds to yes/no questions by nodding /shaking head. PSYCHIATRIC: No obvious anxiety/depression. Calm. Diagnostic Tests Laboratory: Laboratory Results - last 72 hr 09/18/18 09/20/18 09/20/18 23:33 12:46 14:15 WBC RBC Hgb Hct MCV MCH MCHC RDW Plt Count MPV PT 12.0 H INR 1.2 APTT 22.5 L Sodium Potassium Chloride Carbon Dioxide Anion Gap BUN Creatinine Estimated GFR POC Glucose 152 H Random Glucose Calcium Phosphorus Magnesium Procalcitonin 17.73 H 09/20/18 09/20/18 09/21/18 17:55 23:56 04:09 WBC 8.7 RBC 3.22 L Hgb 8.7 L Hct 26.5 L MCV 82.1 MCH 26.9 L MCHC 32.8 RDW 18.5 H Plt Count 219 MPV 11.6 H PT INR APTT Sodium Potassium Chloride Carbon Dioxide Anion Gap BUN Creatinine Estimated GFR POC Glucose 77 85 Random Glucose Calcium Phosphorus Magnesium Procalcitonin 09/21/18 09/21/18 09/21/18 04:09 05:21 11:53 WBC RBC Hgb Hct MCV MCH MCHC RDW Plt Count MPV PT INR APTT Sodium 141 Potassium 3.8 Chloride 100 Carbon Dioxide 29.8 Anion Gap 11 BUN 34 H Creatinine 3.74 H Estimated GFR 15 L POC Glucose 109 152 H Random Glucose 83 D Calcium 8.7 D Phosphorus 3.3 Magnesium 2.3 Procalcitonin 09/21/18 09/22/18 09/22/18 17:22 00:14 06:01 WBC 8.6 RBC 3.00 L Hgb 8.1 L Hct 24.9 L MCV 82.9 MCH 27.1 MCHC 32.7 RDW 18.4 H Plt Count 223 MPV 11.4 H PT INR APTT Sodium Potassium Chloride Carbon Dioxide Anion Gap BUN Creatinine Estimated GFR POC Glucose 80 126 H Random Glucose Calcium Phosphorus Magnesium Procalcitonin 09/22/18 09/22/18 09/22/18 06:01 06:31 12:20 WBC RBC Hgb Hct MCV MCH MCHC RDW Plt Count MPV PT INR APTT Sodium 138 Potassium 4.1 Chloride 97 L Carbon Dioxide 31.0 Anion Gap 10 BUN 47 H Creatinine 4.72 H Estimated GFR 12 L POC Glucose 196 H 144 H Random Glucose 167 H Calcium 8.5 Phosphorus 5.4 H D Magnesium 2.6 H Procalcitonin 09/22/18 09/23/18 09/23/18 17:24 05:30 05:30 WBC 10.9 RBC 3.01 L Hgb 8.1 L Hct 25.1 L MCV 83.4 MCH 26.8 L MCHC 32.1 RDW 17.7 H Plt Count 245 MPV 10.7 PT INR APTT Sodium 140 Potassium 3.8 Chloride 96 L Carbon Dioxide 32.6 H Anion Gap 11 BUN 29 H Creatinine 3.33 H Estimated GFR 17 L POC Glucose 206 H Random Glucose 205 H Calcium 8.6 Phosphorus 3.0 D Magnesium 2.5 Procalcitonin 09/23/18 07:09 WBC RBC Hgb Hct MCV MCH MCHC RDW Plt Count MPV PT INR APTT Sodium Potassium Chloride Carbon Dioxide Anion Gap BUN Creatinine Estimated GFR POC Glucose 90 Random Glucose Calcium Phosphorus Magnesium Procalcitonin Result Diagrams: 09/23/18 05:30 09/23/18 05:30 Procedures: 09/09/2018: To OR for pseudoaneurysm removal with AVF revision 09/09/2018: Right IJ dialysis catheter placed 09/13/2018: Endotracheal intubation 09/13/2018: Left groin arterial line 09/13/2018: Right groin central line 09/15/2018: Right groin central line discontinued 09/21/2018: Vas-Cath placement Assessment and Plan - Disease Oriented Problem List (1) Metabolic encephalopathy (2) Severe sepsis (3) Hyperkalemia (4) ESRD (end stage renal disease) (5) CAD (coronary artery disease) (6) PAD (peripheral artery disease) (7) Diabetes (8) Hypertension (9) Ischemic cardiomyopathy Pertinent Non-Medical Issues: Psychosocial: Patient listed as , however from for many years. Family reports that is incapacitated residing [place] [facility]. She has 2 children, daughter Marina and son Malou. Spiritual: No scientologist affiliation. Legal: No advance directives completed. Ethical issues impacting care: No ethical issues identified. 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 Patient admitted secondary to sepsis and respiratory failure requiring intubation and mechanical ventilation. Patient with multiple comorbidities and overall poor prognosis for prolonged survival or improved quality of life. She remains at a very high risk for further complications, continued decline and . Code Status: Alternative Code Plan: * CODE STATUS: Cardiac code only. Do NOT reintubate. * HEALTHCARE DECISION-MAKING: Patient unable to participate at this time in medical decision making secondary to clinical condition, intubated on mechanical ventilation. Unclear at this time if she will regain medical decision-making capacity. No advance directives completed as per family. Patient is listed as , however, family reports that patient and have been for many years in hospital and is incapacitated residing [place] [facility]/family unaware whereabouts. Patient has 2 adult children: Daughter Marina and son Malou. Family reports that son has been estranged from family for many years and they do not know his whereabouts. Daughter Marina participating in medical decision making as healthcare proxy. * GOALS OF CARE: Daughter Marina acting as HCP electing alternative code - cardiac only/do NOT reintubate if patient is able to medically extubate. Daughter verbalized not wishing for patient to undergo any additional surgical interventions such as tracheostomy placement or leg amputation/revision of previous amputation. Goal of treatment at this time is to allow a few more days to reevaluate goals of care. Daughter verbalized that patient "has been through a lot"and voiced concerns regarding patient's quality of life given multiple acute on chronic comorbidities with overall poor prognosis for survival. * SYMPTOMS: Pain: Multifactorial. Possible contributing factors include infection, impaired skin integrity, impaired circulation, recent invasive procedures, invasive lines etc. [place] 5/325 and IV morphine 2 mg available as needed. Patient has received 1 dose of morphine in the past 24 hours. Palliative care recommends discontinuing morphine in the setting of end- stage renal disease given high risk for neurotoxicity. Recommending hydromorphone 0.25mg IV for moderate pain / 0.5mg for severe pain IV q4hrs PRN. Debility: Patient is a frail, cachectic female with multiple comorbid conditions. Family states she is living independently in her own home and refuses out; they feel this has become a safety issue for the patient. Recommendations for SNF placement with rehab upon discharge * Palliative care will continue to follow this patient throughout her hospitalization to establish trust, assist with symptom management and clarification of medical treatment goals. Time Spent Total Floor Time (mins): 43 (Total time to include review medical records, physical exam, goals of care conversation with patient's family, case discussion with manager of transportation and bedside RN.) >50% Time in Counseling or Coordination of Care: Yes (Total visit time = 43 minutes; > 50% spent counseling/coordinating care) Attestation Attestation: To help prompt me to consider important information that might be impacting today's encounter and assessment, information from prior notes written by myself or my colleagues may have been "brought forward" into today's note. My signature on this note, however, is an attestation that I personally performed the exam, history, and/or decision-making noted today, and, unless otherwise indicated, the interactions with patient, family, and staff as well as the review of records all occurred today. I also attest that the listed assessment and stated plan reflect my best clinical judgment today based on the combination of historical information, prior notes, and today's exam/ interactions. When time spent is documented, it refers only to time spent today by the signer, or if indicated, combined time spent today by collaborating physician/nurse practitioner.
--- NOTE | 2018-09-23 13:28 | P.PNPAL ---
Palliative care continues to await accurint results. Additional information on family provided for [employer] search. Son's first name is Malou. Last name unknown. Google and social media searches conducted. Unable to identify potential matches without son's last name. [employer] results produced possible matches for son: Deon Tavares. I was able to speak with Deon Tavares ([phone]). He states he is the son of Arlyn's Deon. He has no blood relation to the patient. He confirms his father ( patient's ) is in a group home with dementia; they are unable to get a legal divorce due to his dementia status but family has been working on getting a "legal separation". Another [employer] result was Deanna Tavares; Deon states Deanna is his mother, also no blood relation. At this time patient's daughter is readily available and willing to serve as health care proxy.
--- NOTE | 2018-09-23 14:18 | P.PNVS ---
Subjective Subjective/Hospital Course: No change Objective Vital Signs / I&O: Vital Signs 09/22/18 14:30 09/22/18 14:45 09/22/18 15:00 Temperature Pulse Rate 100 H 106 H 104 H Respiratory Rate 19 23 28 H Blood Pressure 119/65 123/72 128/68 Pulse Oximetry 100 100 100 09/22/18 15:15 09/22/18 15:30 09/22/18 15:45 Temperature Pulse Rate 104 H 101 H 101 H Respiratory Rate 23 25 H 29 H Blood Pressure 125/78 135/85 141/73 H Pulse Oximetry 100 100 100 09/22/18 16:00 09/22/18 16:03 09/22/18 16:04 Temperature Pulse Rate 104 H 107 H Respiratory Rate 20 25 H 12 Blood Pressure 165/80 H Pulse Oximetry 92 L 100 09/22/18 19:35 09/22/18 19:37 09/22/18 20:00 Temperature 99.0 F Pulse Rate 102 H 101 H Respiratory Rate 13 17 11 L Blood Pressure 113/58 L Pulse Oximetry 100 100 09/23/18 00:00 09/23/18 04:00 09/23/18 04:12 Temperature 97.8 F Pulse Rate 100 H 93 H Respiratory Rate 25 H 9 L 10 L Blood Pressure 132/69 112/60 Pulse Oximetry 100 100 100 09/23/18 08:00 09/23/18 09:12 Temperature Pulse Rate 93 H Respiratory Rate 17 17 Blood Pressure Pulse Oximetry 100 100 Intake & Output 09/22/18 09/23/18 09/23/18 18:59 06:59 18:59 Intake Total 484 / 484 516 / 516 Output Total 2550 / 2550 0 / 0 Balance -2066 / -2066 516 / 516 Weight 46.5 kg Intake: Oral 0 / 0 0 / 0 Tube Feeding 424 / 424 516 / 516 Tube Irrigant 60 / 60 Water Bolus Amount 0 / 0 Output: Urine 0 / 0 0 / 0 Stool 0 / 0 0 / 0 Urine/Stool Mix 0 / 0 0 / 0 Hemodialysis Amount 2500 / 2500 Estimated Blood Loss 50 / 50 Other: Post Void Residual 0 # Voids 0 # Incontinent Voids 0 # Urine Diapers 0 Date of Last Bowel Movement 09/22/18 09/22/18 09/22/18 # Bowel Movements 0 0 # Incontinent Bowel Movements 1 0 Physical Exam: RLE with dry gangrene R BKA wound stable Laboratory Results - last 24 hr 09/22/18 09/23/18 09/23/18 17:24 05:30 05:30 WBC 10.9 RBC 3.01 L Hgb 8.1 L Hct 25.1 L MCV 83.4 MCH 26.8 L MCHC 32.1 RDW 17.7 H Plt Count 245 MPV 10.7 Sodium 140 Potassium 3.8 Chloride 96 L Carbon Dioxide 32.6 H Anion Gap 11 BUN 29 H Creatinine 3.33 H Estimated GFR 17 L POC Glucose 206 H Random Glucose 205 H Calcium 8.6 Phosphorus 3.0 D Magnesium 2.5 09/23/18 07:09 WBC RBC Hgb Hct MCV MCH MCHC RDW Plt Count MPV Sodium Potassium Chloride Carbon Dioxide Anion Gap BUN Creatinine Estimated GFR POC Glucose 90 Random Glucose Calcium Phosphorus Magnesium Microbiology 09/09/18 11:20 Fungal Smear - Final Wound - Arm No fungal elements seen Fungal Culture - Preliminary No growth in 2 weeks 09/09/18 11:20 Acid Fast Bacilli Smear - Final Wound - Arm No acid fast bacilli seen Mycobacterial Culture - Preliminary No growth in 2 weeks Impressions Catheter Placement 09/21/18 00:00 CONCLUSION: 1. Uncomplicated line placement as above. 2. Please note patient's right internal jugular vein is occluded. Assessment and Plan - Assessment (1) Abscess of upper extremity Code(s): L02.419 - Cutaneous abscess of limb, unspecified Status: Acute (2) Toxic metabolic encephalopathy Code(s): G92 - Toxic encephalopathy Status: Deleted (3) Severe sepsis Code(s): A41.9 - Sepsis, unspecified organism; R65.20 - Severe sepsis without septic shock Status: Deleted (4) PAD (peripheral artery disease) Code(s): I73.9 - Peripheral vascular disease, unspecified Status: Deleted - Plan Left upper extremity abscess, infected hematoma. S/P excision of infected PSA. looks great, incision healing Right lower extremity peripheral vascular disease dry gangrene, likely failed intervention from months ago no other revascularization options - needs AKA LBKA stump will need revision in the future, conversion to AKA Patient shows no improvement, palliative care is consulted
[2018-09-23] MEDS: Artificial Tears Opth Drops 15 ML Bottle EACH EYE SCH ×2 (15:08→22:26)
--- NOTE | 2018-09-23 17:03 | P.PNID ---
Subjective Remarks: remains on vent, same settings not a candidate for revasc Prbably will need b/l AKAs 2 D echo with MV vegetation afebrile Antibiotics: vancomycin Allergies/Adverse Reactions: Allergies latex Allergy (Severe, Unverified 09/06/18 11:19) Edema RASH Objective Vital Signs 09/22/18 19:35 09/22/18 19:37 09/22/18 20:00 Temperature 99.0 F Pulse Rate 102 H 101 H Respiratory Rate 13 17 11 L Blood Pressure 113/58 L Pulse Oximetry 100 100 09/23/18 00:00 09/23/18 04:00 09/23/18 04:12 Temperature 97.8 F Pulse Rate 100 H 93 H Respiratory Rate 25 H 9 L 10 L Blood Pressure 132/69 112/60 Pulse Oximetry 100 100 100 09/23/18 08:00 09/23/18 09:12 09/23/18 12:00 Temperature Pulse Rate 93 H 92 H Respiratory Rate 17 17 17 Blood Pressure Pulse Oximetry 100 100 09/23/18 15:05 Temperature Pulse Rate Respiratory Rate 6 L Blood Pressure Pulse Oximetry Intake & Output 09/22/18 09/23/18 09/23/18 18:59 06:59 18:59 Intake Total 484 / 484 516 / 516 Output Total 2550 / 2550 0 / 0 Balance -2066 / -2066 516 / 516 Weight 46.5 kg Intake: Oral 0 / 0 0 / 0 Tube Feeding 424 / 424 516 / 516 Tube Irrigant 60 / 60 Water Bolus Amount 0 / 0 Output: Urine 0 / 0 0 / 0 Stool 0 / 0 0 / 0 Urine/Stool Mix 0 / 0 0 / 0 Hemodialysis Amount 2500 / 2500 Estimated Blood Loss 50 / 50 Other: Post Void Residual 0 # Voids 0 # Incontinent Voids 0 # Urine Diapers 0 Date of Last Bowel Movement 09/22/18 09/22/18 09/22/18 # Bowel Movements 0 0 # Incontinent Bowel Movements 1 0 09/09/18 11:20 Wound - Arm Fungal Smear - Final No fungal elements seen 09/09/18 11:20 Wound - Arm Fungal Culture - Preliminary No growth in 2 weeks 09/09/18 11:20 Wound - Arm Acid Fast Bacilli Smear - Final No acid fast bacilli seen 09/09/18 11:20 Wound - Arm Mycobacterial Culture - Preliminary No growth in 2 weeks Lab - Hematology Results 09/22/18 09/23/18 06:01 05:30 WBC 8.6 10.9 RBC 3.00 L 3.01 L Hgb 8.1 L 8.1 L Hct 24.9 L 25.1 L MCV 82.9 83.4 MCH 27.1 26.8 L MCHC 32.7 32.1 RDW 18.4 H 17.7 H Plt Count 223 245 MPV 11.4 H 10.7 Lab - Chemistry Results 09/21/18 09/22/18 09/22/18 17:22 00:14 06:01 Sodium 138 Potassium 4.1 Chloride 97 L Carbon Dioxide 31.0 Anion Gap 10 BUN 47 H Creatinine 4.72 H Estimated GFR 12 L POC Glucose 80 126 H Random Glucose 167 H Calcium 8.5 Phosphorus 5.4 H D Magnesium 2.6 H 09/22/18 09/22/18 09/22/18 06:31 12:20 17:24 Sodium Potassium Chloride Carbon Dioxide Anion Gap BUN Creatinine Estimated GFR POC Glucose 196 H 144 H 206 H Random Glucose Calcium Phosphorus Magnesium 09/23/18 09/23/18 09/23/18 05:30 07:09 16:23 Sodium 140 Potassium 3.8 Chloride 96 L Carbon Dioxide 32.6 H Anion Gap 11 BUN 29 H Creatinine 3.33 H Estimated GFR 17 L POC Glucose 90 178 H Random Glucose 205 H Calcium 8.6 Phosphorus 3.0 D Magnesium 2.5 Imaging: ITS Impressions Abdomen/Pelvis CT 09/06/18 11:10 CONCLUSION: 1. Moderate stool in the rectum. No dilated loops of bowel to suggest obstruction. 2. Persistent large solid mass arising from the superior pole the right kidney measuring up to 6.2 cm. This is a renal cell carcinoma until proven otherwise. 3. End-stage appearing kidneys bilaterally. 4. Prominent diffuse vascular calcifications. Upper Extremity Ultrasound 09/09/18 00:00 CONCLUSION: Mixed echogenicity collection around the proximal fistula outflow in the medial left upper arm. Arterial Ultrasound 09/10/18 00:00 CONCLUSION: 1. Right iliofemoral and femoral popliteal bypass grafts appear to be occluded. 2. Occlusion of the [place] superficial femoral and popliteal arteries. Proximal trifurcation vessels also appear to be occluded. 3. Monophasic signal in the right external iliac, common femoral and profunda femoral arteries. 4. CTA abdomen and runoff could be performed for anatomic characterization if clinically warranted. Extremity Arterial Study 09/10/18 00:00 CONCLUSION: 1. Findings discerning for significant right lower extremity ischemia and likely occlusion of the right femoral to popliteal bypass graft with nearly flat waveforms and unobtainable pressures. 2. Status post left BKA. Tibia/Fibula X-Ray 09/13/18 00:00 CONCLUSION: 1. Status post below the knee amputation. 2. No evidence to suggest osteomyelitis. 3. Possible soft tissue erosion at the base of the amputation. Head CT 09/13/18 06:22 CONCLUSION: 1. No acute intracranial abnormality. 2. Progressive right maxillary sinus mucosal disease. . Head MRI 09/14/18 00:00 CONCLUSION: Chronic small vessel ischemic and atrophic changes. Catheter Placement 09/21/18 00:00 CONCLUSION: 1. Uncomplicated line placement as above. 2. Please note patient's right internal jugular vein is occluded. Chest X-Ray 09/21/18 06:00 CONCLUSION: No significant change. Mild diffuse airspace opacities persist. Physical Exam: GENERAL: NAD lethargic, arousable SKIN: Warm and dry. HEAD: Atraumatic. Normocephalic. EYES: diconjugated gaze ENT: No nasal bleeding or discharge. Mucous membranes pink and moist. NECK: Trachea midline. No JVD. CARDIOVASCULAR: Regular rate and rhythm. + murmur 3/6 systolic RESPIRATORY: No accessory muscle use. Clear to auscultation. Breath sounds equal bilaterally. GASTROINTESTINAL: Abdomen soft, non-tender, nondistended. Hepatic and splenic margins not palpable. MUSCULOSKELETAL: Extremities without clubbing, cyanosis, or edema. L BKA: opening in the middle of incision, draining white pus R foot, not refilling, pulseless with ongoing evolving dry gangrene L BKA with small purulent draiange on the dressing and worseningg incision dehiscence L UE incision dry, clean, well approximated elbow ulceration with full thickness skin loss noted + wet eschar NEUROLOGICAL: pt is lehtargic, arousable ; responsive to verbal stimuli, moving extremeties to command PSYCHIATRIC: calm LINES: vascath in place R chest Assessment and Plan - Plan New issue: sp code ? stroke MRSA sepsis: souce MV endocarditis and infected LUE AV fistula last cl negative MV endocartditis AMS no septic emboli HD, non comliance came with electrolytes imbalance Ischemic R foot with mumification of some toes - vasc surgery ff Severe PVD critical iscejmia . Gangrene Non healing L BKA site. Needs revision XR neg for osteo no acute ischemia h/o RLE ileofemoral and fem pop bypass in Feb 2018 Infected pseudoaneurism of R UE AVF - sp repair, I+D Renal mass, prob malignancy . Persistent large solid mass arising from the superior pole the right kidney measuring up to 6.2 cm. cont vancomycin w HD keep trough levels 15-20; trough remains low Anticipate 6-8 weeks of tx with vancomycin (from 09/11) Might re-image LUE if worsening swelling dw RN
[2018-09-24] MEDS: Insulin NovoLIN Regular Correctional Sugar Inj SQ SCH ×5 (01:30→23:53)
[2018-09-24] MEDS: Heparin - SQ 10,000 UNITS/ML Vial SQ SCH ×2 (06:24→18:10)
[2018-09-24] MEDS: Artificial Tears Opth Drops 15 ML Bottle EACH EYE SCH ×2 (09:00→21:52)
--- NOTE | 2018-09-24 10:03 | P.DIET ---
Nutritional Evaluation Type of nutrition evaluation: follow-up Nutrition consult regarding: Tube Feeding Nutrition screening: MDC (malnutrition) Objective - Diagnosis hyperkalemia, fluid overload - Objective Part of Body Amputated: Left below knee (6%) (Adjusted IBW for LBKA = 94-lb( 42.7kg)) % IBW: 119 Body Weight Used for Calculations: Actual (51kg) Energy Needs - Lower Range (kCal/kg): 30 Energy Needs - Upper Range (kCal/kg): 35 Lower Limit kCal/kg (kCals): 1,530 Upper Limit kCal/kg (kCals): 1,785 Lower Limit Protein Factor (Grams per Kg): 1.2 Upper Limit Protein Factor (Grams per Kg): 1.5 Lower Protein Needs (Protein): 61 Upper Protein Needs (Protein): 77 Dietitian Reviewed in Medical Record: Curent medications, Intake & Output, Labs , Medical history, Tube feeding Diet Order: TF'ing ONLY: Nepro @ 35ml/hr Objective Comments: PMH includes: A-V Fistula, ESRD on HD , DM, CHF EF 30-35, Gangrene, MDRO, CAD s/p LAD stent 06/08, LBKA Labs Include: BUN 29, Creatinine 3.33, POC glucose 196 LBM: 09/22/18 Assessment Assessment: Pt is awake and orally intubated on [facility] vent today. Pt currently receiving Nepro @ 40mL/hr and tolerating well. Labs reviewed-monitor renal labs and glucose. Additional Recs to follow r/t Clinical Course. Recommendations: 1. To best meet pt's assessed needs for TF'ing w/Nepro, Rec a goal rate @ 40ml/ hr 2. Additional Recs to follow r/t Clinical Course Dietitian to Monitor: Lab values, Renal labs, Glucose level, Intake & Output, Tube feeding tolerance, Weight change, Residuals, Medical course
[2018-09-24] MEDS: Vancomycin Inj 1,250 MG in Sodium Chlor 0.9% Inj 250 ML IV.SIG SCH (10:51)
[2018-09-24] MEDS: Heparin 10,000 UNITS/10 ML Vial (for IV use) OTHER PRN (10:52)
--- NOTE | 2018-09-24 11:57 | P.PNPAL ---
Reason for Visit Reason for visit: a. To assist with evaluation and management of symptoms including: pain, debility b. To assist medical decision maker(s) with: better understanding of current medical conditions; weighing benefits/burdens of medical treatment options; making medical treatment decisions. Subjective Subjective/Interval History: Palliative care follow-ups for assistance with pain and symptom management, family support and goals of care clarification. Patient seen in medical ICU, remains intubated on mechanical ventilation. 25% FiO2, on PRVC-SIMV. Ongoing attempts at vent medical weaning. Patient alert, awake. Following simple commands and communicating by nodding head to yes/no questions and squeezing her hands. Answered "yes"when asked about pain, "yes" to back pain. Denies any other discomfort. Ongoing hemodialysis at time of my visit, SBP in the 90s. No acute events overnight, remains afebrile and stable hemodynamically. Vascular surgery following for worsening ischemia to extremities secondary to severe PVD. Infectious disease following, MV vegetation, MRSA sepsis currently on vancomycin. Nephrology following, patient with end-stage renal disease hemodialysis dependent. Renal mass discovered in November 2017 which is suspicious of renal cancer, patient refused workup at that time. Patient with multiple comorbidities and overall poor prognosis for prolonged survival or improved quality of life. Case discussed with Dr. Bryson. Family/Friend Interactions: Follow-up telephone conversation with patient's daughter Marina Clark. Medical update provided. Reviewed current medical plan and ongoing attempts at weaning vent support. Goals of treatment remain unchanged at this time. Patient is cardiac code only, do not reintubate if able to medically extubate. Daughter declining any further surgical intervention such as tracheostomy or amputation/revision of previous amputation. Daughter verbalized her understanding of patient's critical condition with very poor prognosis for survival. She reports that additional family members will be visiting patient this afternoon. Daughter receptive to palliative care follow-ups. Advance Directives Living Will: Never completed Health Care Surrogate: Never completed Health Care Surrogate Name and Number: HCP daughter Marina Clark [phone] Objective Vital Signs: Vital Signs 09/23/18 12:00 09/23/18 15:05 09/23/18 16:00 Temperature Pulse Rate 92 H 95 H Respiratory Rate 9 L 6 L 9 L Blood Pressure 116/63 131/71 Pulse Oximetry 100 100 09/23/18 17:00 09/23/18 17:15 11/01/18 17:30 Temperature Pulse Rate 86 86 85 Respiratory Rate 12 18 18 Blood Pressure 116/65 115/62 111/64 Pulse Oximetry 100 100 100 09/23/18 17:45 09/23/18 18:00 09/23/18 18:15 Temperature Pulse Rate 84 82 84 Respiratory Rate 22 13 15 Blood Pressure 109/59 L 101/58 L 109/63 Pulse Oximetry 100 100 100 09/23/18 18:30 09/23/18 18:45 09/23/18 19:00 Temperature Pulse Rate 85 85 85 Respiratory Rate 8 L 12 12 Blood Pressure 119/69 122/68 128/72 Pulse Oximetry 100 100 100 09/23/18 19:15 09/23/18 19:30 09/23/18 19:45 Temperature Pulse Rate 84 85 84 Respiratory Rate 18 20 6 L Blood Pressure 124/69 122/65 121/63 Pulse Oximetry 100 100 100 09/23/18 20:00 09/23/18 20:15 09/23/18 20:30 Temperature 99.1 F Pulse Rate 83 84 83 Respiratory Rate 18 15 19 Blood Pressure 122/71 127/71 129/68 Pulse Oximetry 100 100 100 09/23/18 20:45 09/23/18 21:00 09/23/18 21:15 Temperature Pulse Rate 98 H 83 85 Respiratory Rate 19 13 11 L Blood Pressure 150/78 H 122/64 130/69 Pulse Oximetry 100 100 100 09/23/18 21:30 09/23/18 21:45 09/23/18 22:00 Temperature Pulse Rate 84 84 85 Respiratory Rate 19 22 22 Blood Pressure 129/66 134/73 132/73 Pulse Oximetry 100 100 100 09/23/18 22:15 09/23/18 22:30 09/23/18 22:45 Temperature Pulse Rate 84 83 82 Respiratory Rate 11 L 17 20 Blood Pressure 130/72 113/59 L 112/62 Pulse Oximetry 100 100 100 09/23/18 23:00 09/23/18 23:15 09/23/18 23:30 Temperature Pulse Rate 81 81 83 Respiratory Rate 20 20 17 Blood Pressure 109/57 L 106/59 L 111/63 Pulse Oximetry 100 100 100 09/23/18 23:45 09/24/18 00:00 09/24/18 00:15 Temperature 99.2 F Pulse Rate 82 82 81 Respiratory Rate 17 10 L 12 Blood Pressure 103/56 L 99/54 L 103/58 L Pulse Oximetry 100 100 100 09/24/18 00:30 09/24/18 00:45 09/24/18 01:00 Temperature Pulse Rate 80 80 79 Respiratory Rate 18 20 13 Blood Pressure 95/50 L 96/55 L 98/58 L Pulse Oximetry 100 100 100 09/24/18 01:15 09/24/18 01:24 09/24/18 01:30 Temperature Pulse Rate 81 80 Respiratory Rate 20 11 L 17 Blood Pressure 101/59 L 93/54 L Pulse Oximetry 100 100 100 09/24/18 01:45 09/24/18 02:00 09/24/18 02:15 Temperature Pulse Rate 81 82 83 Respiratory Rate 17 27 H 13 Blood Pressure 87/53 L 118/65 104/58 L Pulse Oximetry 100 100 100 09/24/18 02:30 09/24/18 02:45 09/24/18 03:00 Temperature Pulse Rate 83 81 80 Respiratory Rate 9 L 20 15 Blood Pressure 101/58 L 100/55 L 98/56 L Pulse Oximetry 100 100 100 09/24/18 03:15 09/24/18 03:30 09/24/18 03:45 Temperature Pulse Rate 80 81 81 Respiratory Rate 10 L 11 L 12 Blood Pressure 99/52 L 103/58 L 102/59 L Pulse Oximetry 100 100 100 09/24/18 04:00 09/24/18 04:04 09/24/18 08:34 Temperature 98.2 F Pulse Rate 80 Respiratory Rate 9 L 12 10 L Blood Pressure 97/56 L Pulse Oximetry 100 100 100 Intake & Output 09/23/18 09/24/18 09/24/18 18:59 06:59 18:59 Intake Total 360 / 360 1708.5 / 1708.5 Output Total 0 / 0 0 / 0 Balance 360 / 360 1708.5 / 1708.5 Weight 47 kg Intake: IV 1262.5 / 1262.5 Vancomycin Inj 1,250 MG In NS 262.5 / 262.5 Inj 250 ML @ 250 mls/hr IV.SIG WITH DIALYSIS RAFAEL Rx#:[id number] NS Inj 1,000 ML @ As Directed 1000 / 1000 OTHER .Q0M PRN Rx#:[id number] Oral 0 / 0 0 / 0 Tube Feeding 300 / 300 446 / 446 Tube Irrigant 60 / 60 Output: Urine 0 / 0 0 / 0 Stool 0 / 0 0 / 0 Urine/Stool Mix 0 / 0 0 / 0 Other: Date of Last Bowel Movement 09/22/18 09/22/18 # Bowel Movements 0 0 # Incontinent Bowel Movements 0 0 Physical Exam: CONSTITUTIONAL/GENERAL: This is a AA female patient currently intubated on mech vent. Following simple commands. TUBES/LINES/DRAINS: PIV, Vas-Cath, ETT, OGT, hussein, soft wrist restraints. SKIN: No jaundice, rashes, or lesions. Ecchymoses on upper extremities. Skin temperature appropriate. Not diaphoretic. HEAD: Atraumatic. Normocephalic. EYES: Pupils equal and round and reactive. Extraocular motions intact. No scleral icterus. No injection or drainage. Fundi not examined. ENT: Hearing grossly normal. Nose without bleeding or purulent drainage. NECK: Trachea midline. Supple, nontender. CARDIOVASCULAR: Regular rate and rhythm. Weak right pedal pulses. RESPIRATORY/CHEST: Intubated on mechanical vent. Coarse breath sounds. GASTROINTESTINAL: Abdomen soft, non-tender, nondistended. Bowel sounds present. GENITOURINARY: Without palpable bladder distension. Hussein catheter in place. MUSCULOSKELETAL: AVF in the left arm with palpable thrill. Status post left BKA. Right foot with toe amputations noted, dry gangrene. NEUROLOGICAL: Following simple commands. responds to yes/no questions by nodding /shaking head. PSYCHIATRIC: No obvious anxiety/depression. Calm. Diagnostic Tests Laboratory: Laboratory Results - last 72 hr 09/21/18 09/21/18 09/22/18 11:53 17:22 00:14 WBC RBC Hgb Hct MCV MCH MCHC RDW Plt Count MPV Sodium Potassium Chloride Carbon Dioxide Anion Gap BUN Creatinine Estimated GFR POC Glucose 152 H 80 126 H Random Glucose Calcium Phosphorus Magnesium 09/22/18 09/22/18 09/22/18 06:01 06:01 06:31 WBC 8.6 RBC 3.00 L Hgb 8.1 L Hct 24.9 L MCV 82.9 MCH 27.1 MCHC 32.7 RDW 18.4 H Plt Count 223 MPV 11.4 H Sodium 138 Potassium 4.1 Chloride 97 L Carbon Dioxide 31.0 Anion Gap 10 BUN 47 H Creatinine 4.72 H Estimated GFR 12 L POC Glucose 196 H Random Glucose 167 H Calcium 8.5 Phosphorus 5.4 H D Magnesium 2.6 H 09/22/18 09/22/18 09/23/18 12:20 17:24 05:30 WBC 10.9 RBC 3.01 L Hgb 8.1 L Hct 25.1 L MCV 83.4 MCH 26.8 L MCHC 32.1 RDW 17.7 H Plt Count 245 MPV 10.7 Sodium Potassium Chloride Carbon Dioxide Anion Gap BUN Creatinine Estimated GFR POC Glucose 144 H 206 H Random Glucose Calcium Phosphorus Magnesium 09/23/18 09/23/18 09/23/18 05:30 07:09 16:23 WBC RBC Hgb Hct MCV MCH MCHC RDW Plt Count MPV Sodium 140 Potassium 3.8 Chloride 96 L Carbon Dioxide 32.6 H Anion Gap 11 BUN 29 H Creatinine 3.33 H Estimated GFR 17 L POC Glucose 90 178 H Random Glucose 205 H Calcium 8.6 Phosphorus 3.0 D Magnesium 2.5 09/23/18 09/23/18 09/24/18 18:27 23:20 06:21 WBC RBC Hgb Hct MCV MCH MCHC RDW Plt Count MPV Sodium Potassium Chloride Carbon Dioxide Anion Gap BUN Creatinine Estimated GFR POC Glucose 142 H 174 H 196 H Random Glucose Calcium Phosphorus Magnesium Result Diagrams: 09/23/18 05:30 09/23/18 05:30 Microbiology: Microbiology 09/09/18 11:20 Fungal Smear - Final Wound - Arm No fungal elements seen Fungal Culture - Preliminary No growth in 2 weeks 09/09/18 11:20 Acid Fast Bacilli Smear - Final Wound - Arm No acid fast bacilli seen Mycobacterial Culture - Preliminary No growth in 2 weeks Procedures: 09/09/2018: To OR for pseudoaneurysm removal with AVF revision 09/09/2018: Right IJ dialysis catheter placed 09/13/2018: Endotracheal intubation 09/13/2018: Left groin arterial line 09/13/2018: Right groin central line 09/15/2018: Right groin central line discontinued 09/21/2018: Vas-Cath placement Assessment and Plan - Disease Oriented Problem List (1) Metabolic encephalopathy (2) Severe sepsis (3) Hyperkalemia (4) ESRD (end stage renal disease) (5) CAD (coronary artery disease) (6) PAD (peripheral artery disease) (7) Diabetes (8) Hypertension (9) Ischemic cardiomyopathy Pertinent Non-Medical Issues: Psychosocial: is incapacitated secondary to dementia and residing at a care home. She has 2 children, daughter Marina and son Malou. Son unable to be located. Spiritual: No latter day affiliation. Legal: No advance directives completed. Ethical issues impacting care: No ethical issues identified. Important Contacts: Zeus Clark , W Micaela Bhatt, sister: [phone] Lety Montez, friend: [phone] Prognosis: 58yF with ESRD hemodialysis dependent, MD, hypertension, CHF, MRSA bacteremia secondary to mitral valve endocarditis, respiratory failure requiring intubation , severe PVD with ischemic extremity, renal mass suspicious of renal carcinoma. Patient admitted secondary to sepsis and respiratory failure requiring intubation and mechanical ventilation. Patient with multiple comorbidities and overall poor prognosis for prolonged survival or improved quality of life. She remains at a very high risk for further complications, continued decline and . Code Status: Alternative Code Plan: * CODE STATUS: Cardiac code only. Do NOT reintubate. * HEALTHCARE DECISION-MAKING: Patient unable to participate at this time in medical decision making secondary to clinical condition, intubated on mechanical ventilation. Unclear at this time if she will regain medical decision-making capacity. No advance directives completed as per family. Patient ; however, incapacitated secondary to dementia and currently living in a care home. Patient has 2 adult children. Daughter Marina and son Malou. Family reports that son has been estranged from family for many years and they do not know his whereabouts. Zeus Gray participating in medical decision making as healthcare proxy. * GOALS OF CARE: Zeus Gray acting as HCP electing alternative code - cardiac only/do NOT reintubate if patient is able to medically extubate. Daughter verbalized NOT wishing for patient to undergo any additional surgical interventions such as tracheostomy or leg amputation/revision of previous amputation. Goal of treatment at this time is to allow a few more days to reevaluate GOC. Daughter verbalized that patient "has been through a lot". Overall poor prognosis for survival has been discussed with daughter. * SYMPTOMS: Pain: Multifactorial. Possible contributing factors include infection, impaired skin integrity, impaired circulation, recent invasive procedures, invasive lines etc. [place] 5/325 and IV morphine 2 mg available as needed. NO PRN opioids given in the past 24hrs. Palliative care recommends discontinuing morphine in the setting of end-stage renal disease given high risk for neurotoxicity. Recommending hydromorphone 0.25mg IV for moderate pain / 0.5mg for severe pain IV q4hrs PRN. * Case discussed with Dr. Bryson. * Palliative care will continue to follow this patient throughout her hospitalization to establish trust, assist with symptom management and clarification of medical treatment goals. Time Spent Total Floor Time (mins): 37 (Total time to include review of medical records, physical exam, goals of care conversation with patient's daughter, case discussion with military pilot.) >50% Time in Counseling or Coordination of Care: Yes (Total visit time = 37 minutes; > 50% spent counseling/coordinating care) Attestation Attestation: To help prompt me to consider important information that might be impacting today's encounter and assessment, information from prior notes written by myself or my colleagues may have been "brought forward" into today's note. My signature on this note, however, is an attestation that I personally performed the exam, history, and/or decision-making noted today, and, unless otherwise indicated, the interactions with patient, family, and staff as well as the review of records all occurred today. I also attest that the listed assessment and stated plan reflect my best clinical judgment today based on the combination of historical information, prior notes, and today's exam/ interactions. When time spent is documented, it refers only to time spent today by the signer, or if indicated, combined time spent today by collaborating physician/nurse practitioner.
[2018-09-24] MEDS: Famotidine 20 MG Tablet PO SCH ×2 (13:12→21:52)
[2018-09-24] MEDS: Senna/Docusate Sodium 8.6/50 MG Tablet PO SCH ×2 (13:12→21:52)
--- NOTE | 2018-09-24 13:13 | P.PNCC ---
Subjective Subjective Remarks/Hospital Course: No history is obtainable from the patient due to altered mental status. All history obtained from chart review and discussion with ED attending. Patient is a 58-year-old -[place] female with past medical history of type 2 diabetes, hypertension, hyperlipidemia, ESRD on HD M/W/F, CHF Echo 03/22/07 EF 30 -35%, CAD, s/p LAD stent 06/08, status post left BKA. Patient was brought to the emergency department by EMS for altered mental status. Apparently patient was found lying on the floor between 2 dressers, missed two dialysis appointments. CT of the head was negative for acute findings chest x-ray showed pulmonary vascular congestion, left lower lobe atelectasis. CT abdomen pelvis showed large 6.2 cm renal mass which has grown in size since last scan in Nov 2017, and suspicious for renal cell carcinoma. Her WBC count was 23.4 with left shift, with altered mental status this was most likely secondary to severe sepsis. Patient was empirically given vancomycin and Zosyn in the ED after getting blood cultures. Also her potassium was 6.3 patient is receiving bicarb now and nephrology had been contacted for stat dialysis I evaluated the patient in the emergency department. Patient is very lethargic encephalopathic. She mumbles a few words but did not follow commands. Even though very lethargic at this point she is protecting airway. In addition to IV bicarb I will also give 5 units of insulin and IV dextrose. Antibiotics will be continued-renally dosed vancomycin and Zosyn. Will request nephrology and urology consult. At this time critically ill with severe sepsis. 09/07: Patient is lying in bed mental status seems to be improved alert oriented x2 today. Potassium is 5.3 chest x-ray shows pulmonary edema. Will request for repeat hemodialysis today 09/13: Rapid response team activated for patient hypotension and hypoxemia. After transfer to ICU I have found patient in agonal breathing and immediately intubated her with 7.5 ET tube. Shortly after intubation the patient was pulseless and 1 cycle of CPR was performed including one injection of epinephrine, chest compressions, and sodium bicarbonate injections. Family notified about the critical condition. 09/14: Remains encephalopathic, orally intubated on mechanical ventilation. 09/15: More awake, opening eyes, squeezing my fingers with her hands on command. Remains orally intubated on mechanical ventilation. 09/16: clinically improving. following commands. on PSV 15/5/40%. HD yesterday with good volume removal. 09/17: still failing SBTs- going apneic into back-up mode. will attempt again today. likely will need HD again today. still following commands. 09/18: During CPAP trials. T-max 100.5 currently 100. -3 L with hemodialysis. Arousable and follows commands. 09/19: T-max 100.6. Currently 100.1. Appears comfortable on PSV trial. Lasted greater than 9 hours 09/18 tolerating tube feeds. White blood cell count is normalized. Subjective 09/20: T-max 100.6. Remains on CPAP trial. Lasted for hours yesterday. Palliative care discussed with family possible right [id number] amputation. Hemodialysis catheter should be removed after dialysis today. Arousable while on the ventilator 09/21: Remains encephalopathic, orally intubated on mechanical ventilation. Nephrology planning new Vas-Cath to be placed by IR tomorrow for hemodialysis 09/22: Drowsy, easily arousable, orally intubated on mechanical ventilation. Hemodialysis today. CPAP trials to decide extubation 09/23: Awake, orally intubated on mechanical ventilation, follows commands. On SIMV mode for weaning due to apneic episodes. 09/24: Drowsy, easily arousable, orally intubated on mechanical ventilation. Being dialyzed earlier at the time of my evaluation. On SIMV mode for weaning due to apneic episodes Objective Vital Signs / I&O: Vital Signs 09/23/18 15:05 09/23/18 16:00 09/23/18 17:00 Temperature Pulse Rate 95 H 86 Respiratory Rate 6 L 9 L 12 Blood Pressure 131/71 116/65 Pulse Oximetry 100 100 09/23/18 17:15 09/23/18 17:30 09/23/18 17:45 Temperature Pulse Rate 86 85 84 Respiratory Rate 18 18 22 Blood Pressure 115/62 111/64 109/59 L Pulse Oximetry 100 100 100 09/23/18 18:00 09/23/18 18:15 09/23/18 18:30 Temperature Pulse Rate 82 84 85 Respiratory Rate 13 15 8 L Blood Pressure 101/58 L 109/63 119/69 Pulse Oximetry 100 100 100 09/23/18 18:45 09/23/18 19:00 09/23/18 19:15 Temperature Pulse Rate 85 85 84 Respiratory Rate 12 12 18 Blood Pressure 122/68 128/72 124/69 Pulse Oximetry 100 100 100 09/23/18 19:30 09/23/18 19:45 09/23/18 20:00 Temperature 99.1 F Pulse Rate 85 84 83 Respiratory Rate 20 6 L 18 Blood Pressure 122/65 121/63 122/71 Pulse Oximetry 100 100 100 09/23/18 20:15 09/23/18 20:30 09/23/18 20:45 Temperature Pulse Rate 84 83 98 H Respiratory Rate 15 19 19 Blood Pressure 127/71 129/68 150/78 H Pulse Oximetry 100 100 100 09/23/18 21:00 09/23/18 21:15 09/23/18 21:30 Temperature Pulse Rate 83 85 84 Respiratory Rate 13 11 L 19 Blood Pressure 122/64 130/69 129/66 Pulse Oximetry 100 100 100 09/23/18 21:45 09/23/18 22:00 11/01/18 22:15 Temperature Pulse Rate 84 85 84 Respiratory Rate 22 22 11 L Blood Pressure 134/73 132/73 130/72 Pulse Oximetry 100 100 100 09/23/18 22:30 09/23/18 22:45 09/23/18 23:00 Temperature Pulse Rate 83 82 81 Respiratory Rate 17 20 20 Blood Pressure 113/59 L 112/62 109/57 L Pulse Oximetry 100 100 100 09/23/18 23:15 09/23/18 23:30 09/23/18 23:45 Temperature Pulse Rate 81 83 82 Respiratory Rate 20 17 17 Blood Pressure 106/59 L 111/63 103/56 L Pulse Oximetry 100 100 100 09/24/18 00:00 09/24/18 00:15 09/24/18 00:30 Temperature 99.2 F Pulse Rate 82 81 80 Respiratory Rate 10 L 12 18 Blood Pressure 99/54 L 103/58 L 95/50 L Pulse Oximetry 100 100 100 09/24/18 00:45 09/24/18 01:00 09/24/18 01:15 Temperature Pulse Rate 80 79 81 Respiratory Rate 20 13 20 Blood Pressure 96/55 L 98/58 L 101/59 L Pulse Oximetry 100 100 100 09/24/18 01:24 09/24/18 01:30 09/24/18 01:45 Temperature Pulse Rate 80 81 Respiratory Rate 11 L 17 17 Blood Pressure 93/54 L 87/53 L Pulse Oximetry 100 100 100 09/24/18 02:00 09/24/18 02:15 09/24/18 02:30 Temperature Pulse Rate 82 83 83 Respiratory Rate 27 H 13 9 L Blood Pressure 118/65 104/58 L 101/58 L Pulse Oximetry 100 100 100 09/24/18 02:45 09/24/18 03:00 09/24/18 03:15 Temperature Pulse Rate 81 80 80 Respiratory Rate 20 15 10 L Blood Pressure 100/55 L 98/56 L 99/52 L Pulse Oximetry 100 100 100 09/24/18 03:30 09/24/18 03:45 09/24/18 04:00 Temperature 98.2 F Pulse Rate 81 81 80 Respiratory Rate 11 L 12 9 L Blood Pressure 103/58 L 102/59 L 97/56 L Pulse Oximetry 100 100 100 09/24/18 04:04 09/24/18 08:34 09/24/18 12:33 Temperature Pulse Rate Respiratory Rate 12 10 L 6 L Blood Pressure Pulse Oximetry 100 100 100 Intake & Output 09/23/18 09/24/18 09/24/18 18:59 06:59 18:59 Intake Total 360 / 360 1708.5 / 1708.5 Output Total 0 / 0 0 / 0 2500 / 2500 Balance 360 / 360 1708.5 / 1708.5 -2500 / -2500 Weight 47 kg Intake: IV 1262.5 / 1262.5 Vancomycin Inj 1,250 MG In NS 262.5 / 262.5 Inj 250 ML @ 250 mls/hr IV.SIG WITH DIALYSIS RAFAEL Rx#:[id number] NS Inj 1,000 ML @ As Directed 1000 / 1000 OTHER .Q0M PRN Rx#:[id number] Oral 0 / 0 0 / 0 Tube Feeding 300 / 300 446 / 446 Tube Irrigant 60 / 60 Output: Urine 0 / 0 0 / 0 Stool 0 / 0 0 / 0 Urine/Stool Mix 0 / 0 0 / 0 Hemodialysis Amount 2500 / 2500 Other: Date of Last Bowel Movement 09/22/18 09/22/18 # Bowel Movements 0 0 # Incontinent Bowel Movements 0 0 Result Diagrams: 09/23/18 05:30 09/23/18 05:30 Objective Remarks: GENERAL: 58-year-old AA female, lying in bed intubated. SKIN: Warm and dry. No rash HEAD: Atraumatic. Normocephalic. EYES: Pupils equal and round, 2 mm reactive. No scleral icterus. ENT: No nasal bleeding or discharge. Mucous membranes moist NECK: Trachea midline. No JVD. CARDIOVASCULAR: RRR. S1, S2. No S4. 2/6 murmur systolic. RESPIRATORY: On mechanical ventilation, equal chest rise. Currently on SIMV with PSV trials GASTROINTESTINAL: Abdomen soft, non-tender, nondistended. MUSCULOSKELETAL: AV fistula in left upper arm with palpable thrill. s/p L BKA NEUROLOGICAL: Drowsy, arousable, follows commands, orally intubated on mechanical ventilation Assessment and Plan - Assessment and Plan Plan: NEURO/PSYCH: Toxic metabolic encephalopathy- improving. History of peripheral neuropathy History of glaucoma Avoid any sedating medication CT head negative for bleed. Encephalopathy most likely from metabolic causes/sepsis. EEG generalized slowing 09/15 MRI brain 09/15 no acute disease. Neurology has followed RESP: Acute hypoxic and hypercarbic Respiratory failure Pulmonary edema Currently on SIMV with PSV trial. Will attempt CPAP trial. Patient gets apneic episodes. 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 Ramierz 11/26/17 Peripheral arterial disease Hypertension Dyslipidemia Continue baby aspirin 81 mg daily severe MR continues to require volume removal. HD per nephrology. Currently not requiring vasopressors and her anti-pretenses Cardiogram revealed EF of 30%. PAP 57 mmHg. Severe TR. Mobile mitral valve mass. Will need right above or below the knee amputation to lower extremity. Palliative care consult discussing goals of therapy with family. GI: Acute protein calorie malnutrition- severe Continue 10 mg twice daily PO famotidine Tolerating Nepro tube feeds at 40 cc an hour per nutrition recommendation. Docusate sodium/senna twice daily for bowel regimen FEN/RENAL: ESRD Large right renal mass suspicious for renal cell carcinoma Hemodialysis Thursday/Thursday/Thursday per nephrology, Dr Ahumada. Urology consulted for right renal mass (previously refused work up) Sevelamer 1600 mg 3 times daily for hyperphosphatemia New Vascath placed on 09/21 by IR ID: Severe sepsis [place] Mitral Valve infective endocarditis Source of sepsis: mitral valve endocarditis, infected AV fistula IV vancomycin per ID Dr. Noemí Nj removed. New vascath to be placed prior to HD on 09/22 HEME: Anemia of chronic kidney disease Monitor CBC daily. Follow trends. No indication for blood transfusion at this time ENDO: Diabetes mellitus, type II med-dose insulin sliding scale q6h PROPH: Heparin 5000 subcutaneous every 12 for DVT prophylaxis. PO famotidine ACCESS: Right groin central line 09/13/2018- discontinued 09/15 Discontinue right IJ hemodialysis catheter 09/20 after hemodialysis piv D/W [employer], D/W Palliative care. Alternate code.
--- NOTE | 2018-09-24 14:09 | P.PNNP ---
Subjective Interval history: Patient was seen during dialysis, on 3K, 350mL/min UF, goal of 2.5L. Patient was orally intubated on mechanical ventilation. Per the RN patient met with palliative care today. <Marshal Chávez - Last Filed: 09/24/18 14:09> Physical Exam Vital signs: Vital Signs 09/23/18 15:05 09/23/18 16:00 09/23/18 17:00 Temperature Pulse Rate 95 H 86 Respiratory Rate 6 L 9 L 12 Blood Pressure 131/71 116/65 Pulse Oximetry 100 100 09/23/18 17:15 09/23/18 17:30 09/23/18 17:45 Temperature Pulse Rate 86 85 84 Respiratory Rate 18 18 22 Blood Pressure 115/62 111/64 109/59 L Pulse Oximetry 100 100 100 09/23/18 18:00 09/23/18 18:15 09/23/18 18:30 Temperature Pulse Rate 82 84 85 Respiratory Rate 13 15 8 L Blood Pressure 101/58 L 109/63 119/69 Pulse Oximetry 100 100 100 09/23/18 18:45 09/23/18 19:00 09/23/18 19:15 Temperature Pulse Rate 85 85 84 Respiratory Rate 12 12 18 Blood Pressure 122/68 128/72 124/69 Pulse Oximetry 100 100 100 09/23/18 19:30 09/23/18 19:45 09/23/18 20:00 Temperature 99.1 F Pulse Rate 85 84 83 Respiratory Rate 20 6 L 18 Blood Pressure 122/65 121/63 122/71 Pulse Oximetry 100 100 100 09/23/18 20:15 09/23/18 20:30 09/23/18 20:45 Temperature Pulse Rate 84 83 98 H Respiratory Rate 15 19 19 Blood Pressure 127/71 129/68 150/78 H Pulse Oximetry 100 100 100 09/23/18 21:00 09/23/18 21:15 09/23/18 21:30 Temperature Pulse Rate 83 85 84 Respiratory Rate 13 11 L 19 Blood Pressure 122/64 130/69 129/66 Pulse Oximetry 100 100 100 09/23/18 21:45 09/23/18 22:00 09/23/18 22:15 Temperature Pulse Rate 84 85 84 Respiratory Rate 22 22 11 L Blood Pressure 134/73 132/73 130/72 Pulse Oximetry 100 100 100 09/23/18 22:30 09/23/18 22:45 09/23/18 23:00 Temperature Pulse Rate 83 82 81 Respiratory Rate 17 20 20 Blood Pressure 113/59 L 112/62 109/57 L Pulse Oximetry 100 100 100 09/23/18 23:15 09/23/18 23:30 09/23/18 23:45 Temperature Pulse Rate 81 83 82 Respiratory Rate 20 17 17 Blood Pressure 106/59 L 111/63 103/56 L Pulse Oximetry 100 100 100 09/24/18 00:00 09/24/18 00:15 09/24/18 00:30 Temperature 99.2 F Pulse Rate 82 81 80 Respiratory Rate 10 L 12 18 Blood Pressure 99/54 L 103/58 L 95/50 L Pulse Oximetry 100 100 100 09/24/18 00:45 09/24/18 01:00 09/24/18 01:15 Temperature Pulse Rate 80 79 81 Respiratory Rate 20 13 20 Blood Pressure 96/55 L 98/58 L 101/59 L Pulse Oximetry 100 100 100 09/24/18 01:24 09/24/18 01:30 09/24/18 01:45 Temperature Pulse Rate 80 81 Respiratory Rate 11 L 17 17 Blood Pressure 93/54 L 87/53 L Pulse Oximetry 100 100 100 09/24/18 02:00 09/24/18 02:15 09/24/18 02:30 Temperature Pulse Rate 82 83 83 Respiratory Rate 27 H 13 9 L Blood Pressure 118/65 104/58 L 101/58 L Pulse Oximetry 100 100 100 09/24/18 02:45 09/24/18 03:00 09/24/18 03:15 Temperature Pulse Rate 81 80 80 Respiratory Rate 20 15 10 L Blood Pressure 100/55 L 98/56 L 99/52 L Pulse Oximetry 100 100 100 09/24/18 03:30 09/24/18 03:45 09/24/18 04:00 Temperature 98.2 F Pulse Rate 81 81 80 Respiratory Rate 11 L 12 9 L Blood Pressure 103/58 L 102/59 L 97/56 L Pulse Oximetry 100 100 100 09/24/18 04:04 09/24/18 08:34 09/24/18 12:33 Temperature Pulse Rate Respiratory Rate 12 10 L 6 L Blood Pressure Pulse Oximetry 100 100 100 Intake & Output 09/23/18 09/24/18 09/24/18 18:59 06:59 18:59 Intake Total 360 / 360 1708.5 / 1708.5 Output Total 0 / 0 0 / 0 2500 / 2500 Balance 360 / 360 1708.5 / 1708.5 -2500 / -2500 Weight 47 kg Intake: IV 1262.5 / 1262.5 Vancomycin Inj 1,250 MG In NS 262.5 / 262.5 Inj 250 ML @ 250 mls/hr IV.SIG WITH DIALYSIS RAFAEL Rx#:[id number] NS Inj 1,000 ML @ As Directed 1000 / 1000 OTHER .Q0M PRN Rx#:[id number] Oral 0 / 0 0 / 0 Tube Feeding 300 / 300 446 / 446 Tube Irrigant 60 / 60 Output: Urine 0 / 0 0 / 0 Stool 0 / 0 0 / 0 Urine/Stool Mix 0 / 0 0 / 0 Hemodialysis Amount 2500 / 2500 Other: Date of Last Bowel Movement 09/22/18 09/22/18 # Bowel Movements 0 0 # Incontinent Bowel Movements 0 0 - Constitutional no acute distress - Routine HEENT Exam Head: Present: normocephalic Eye: Present: EOMI - Routine Neck Exam Present: trachea midline - Routine Respiratory Exam Present: patient mechanically ventilated. Absent: accessory muscle use - Routine Cardiovascular Exam Present: RRR, murmur - Routine Abdominal Exam Present: normoactive bowel sounds. Absent: tenderness - Routine Extremities Exam Present: amputation, AV fistula Comments: Patient's right foot is ischemic. Patient has had several toes amputated. Left BKA. - Detailed Neurological Exam: Coma Scale Eye Opening: To sound Verbal Response: None - Routine Psychiatric Exam Present: unable to assess <Marshal Chávez - Last Filed: 09/24/18 14:09> Vital signs: Vital Signs 09/23/18 18:00 09/23/18 18:15 09/23/18 18:30 Temperature Pulse Rate 82 84 85 Respiratory Rate 13 15 8 L Blood Pressure 101/58 L 109/63 119/69 Pulse Oximetry 100 100 100 09/23/18 18:45 09/23/18 19:00 09/23/18 19:15 Temperature Pulse Rate 85 85 84 Respiratory Rate 12 12 18 Blood Pressure 122/68 128/72 124/69 Pulse Oximetry 100 100 100 09/23/18 19:30 09/23/18 19:45 09/23/18 20:00 Temperature 99.1 F Pulse Rate 85 84 83 Respiratory Rate 20 6 L 18 Blood Pressure 122/65 121/63 122/71 Pulse Oximetry 100 100 100 09/23/18 20:15 09/23/18 20:30 09/23/18 20:45 Temperature Pulse Rate 84 83 98 H Respiratory Rate 15 19 19 Blood Pressure 127/71 129/68 150/78 H Pulse Oximetry 100 100 100 09/23/18 21:00 09/23/18 21:15 09/23/18 21:30 Temperature Pulse Rate 83 85 84 Respiratory Rate 13 11 L 19 Blood Pressure 122/64 130/69 129/66 Pulse Oximetry 100 100 100 09/23/18 21:45 09/23/18 22:00 09/23/18 22:15 Temperature Pulse Rate 84 85 84 Respiratory Rate 22 22 11 L Blood Pressure 134/73 132/73 130/72 Pulse Oximetry 100 100 100 09/23/18 22:30 09/23/18 22:45 09/23/18 23:00 Temperature Pulse Rate 83 82 81 Respiratory Rate 17 20 20 Blood Pressure 113/59 L 112/62 109/57 L Pulse Oximetry 100 100 100 09/23/18 23:15 09/23/18 23:30 09/23/18 23:45 Temperature Pulse Rate 81 83 82 Respiratory Rate 20 17 17 Blood Pressure 106/59 L 111/63 103/56 L Pulse Oximetry 100 100 100 09/24/18 00:00 09/24/18 00:15 09/24/18 00:30 Temperature 99.2 F Pulse Rate 82 81 80 Respiratory Rate 10 L 12 18 Blood Pressure 99/54 L 103/58 L 95/50 L Pulse Oximetry 100 100 100 09/24/18 00:45 09/24/18 01:00 09/24/18 01:15 Temperature Pulse Rate 80 79 81 Respiratory Rate 20 13 20 Blood Pressure 96/55 L 98/58 L 101/59 L Pulse Oximetry 100 100 100 09/24/18 01:24 09/24/18 01:30 09/24/18 01:45 Temperature Pulse Rate 80 81 Respiratory Rate 11 L 17 17 Blood Pressure 93/54 L 87/53 L Pulse Oximetry 100 100 100 09/24/18 02:00 09/24/18 02:15 09/24/18 02:30 Temperature Pulse Rate 82 83 83 Respiratory Rate 27 H 13 9 L Blood Pressure 118/65 104/58 L 101/58 L Pulse Oximetry 100 100 100 09/24/18 02:45 09/24/18 03:00 09/24/18 03:15 Temperature Pulse Rate 81 80 80 Respiratory Rate 20 15 10 L Blood Pressure 100/55 L 98/56 L 99/52 L Pulse Oximetry 100 100 100 09/24/18 03:30 09/24/18 03:45 09/24/18 04:00 Temperature 98.2 F Pulse Rate 81 81 80 Respiratory Rate 11 L 12 9 L Blood Pressure 103/58 L 102/59 L 97/56 L Pulse Oximetry 100 100 100 09/24/18 04:04 09/24/18 08:00 09/24/18 08:34 Temperature 98.0 F Pulse Rate 81 Respiratory Rate 12 8 L 10 L Blood Pressure 102/56 L Pulse Oximetry 100 100 100 09/24/18 12:00 09/24/18 12:33 09/24/18 15:52 Temperature 98.1 F Pulse Rate 91 H Respiratory Rate 9 L 6 L 17 Blood Pressure 125/64 Pulse Oximetry 100 100 100 09/24/18 16:00 Temperature 98 F Pulse Rate 87 Respiratory Rate 9 L Blood Pressure 117/59 L Pulse Oximetry 100 Intake & Output 09/23/18 09/24/18 09/24/18 18:59 06:59 18:59 Intake Total 360 / 360 1708.5 / 1708.5 Output Total 0 / 0 0 / 0 2500 / 2500 Balance 360 / 360 1708.5 / 1708.5 -2500 / -2500 Weight 47 kg Intake: IV 1262.5 / 1262.5 Vancomycin Inj 1,250 MG In NS 262.5 / 262.5 Inj 250 ML @ 250 mls/hr IV.SIG WITH DIALYSIS RAFAEL Rx#:[id number] NS Inj 1,000 ML @ As Directed 1000 / 1000 OTHER .Q0M PRN Rx#:[id number] Oral 0 / 0 0 / 0 Tube Feeding 300 / 300 446 / 446 Tube Irrigant 60 / 60 Output: Urine 0 / 0 0 / 0 Stool 0 / 0 0 / 0 Urine/Stool Mix 0 / 0 0 / 0 Hemodialysis Amount 2500 / 2500 Other: Date of Last Bowel Movement 09/22/18 09/22/18 09/22/18 # Bowel Movements 0 0 # Incontinent Bowel Movements 0 0 <Nazario Ahumada - Last Filed: 09/24/18 17:50> Assessment and Plan - Assessment (1) ESRD (end stage renal disease) Code(s): N18.6 - End stage renal disease Status: Deleted Plan: Dialysis MWF. Patient was seen during dialysis, 350mL/min UF, goal of 2.5L, on 3K. She is s/p repair/excision of infected pseudoaneurysm of AVF, with apparent interposition bovine graft. Fistula pseudo aneurysm grossly infected. Previous steal history - no apparent signs of steal at this point. ---- (2) Hyperkalemia Code(s): E87.5 - Hyperkalemia Status: Deleted Plan: Improved. . (3) Renal mass Code(s): N28.89 - Other specified disorders of kidney and ureter Status: Acute Plan: Renal mass has grown in size, most likely malignancy. Urology note reviewed, to follow up after discharge. Previously the patient had refused workup. (4) Severe sepsis Code(s): A41.9 - Sepsis, unspecified organism; R65.20 - Severe sepsis without septic shock Status: Deleted Plan: MRSA sepsis, endocarditis. MRI of the brain negative for septic emboli. She has mitral valve vegetation. On Vancomycin. s/p excision of infected pseudoaneurysm of AVF. (5) CAD (coronary artery disease) Code(s): I25.10 - Atherosclerotic heart disease of [place] coronary artery without angina pectoris Status: Deleted (6) PAD (peripheral artery disease) Code(s): I73.9 - Peripheral vascular disease, unspecified Status: Deleted Plan: s/p left BKA. Poor circulation of right lower extremity. Vascular surgery following. Not a candidate for revascularization. (7) DM2 (diabetes mellitus, type 2) Code(s): E11.9 - Type 2 diabetes mellitus without complications Status: Deleted Plan: maintain blood glucose between 140 and 180 while hospitalized. <Marshal Chávez - Last Filed: 09/24/18 14:09> - Assessment (1) ESRD (end stage renal disease) Code(s): N18.6 - End stage renal disease Status: Deleted (2) Hyperkalemia Code(s): E87.5 - Hyperkalemia Status: Deleted (3) Renal mass Code(s): N28.89 - Other specified disorders of kidney and ureter Status: Acute (4) Severe sepsis Code(s): A41.9 - Sepsis, unspecified organism; R65.20 - Severe sepsis without septic shock Status: Deleted (5) CAD (coronary artery disease) Code(s): I25.10 - Atherosclerotic heart disease of [place] coronary artery without angina pectoris Status: Deleted (6) PAD (peripheral artery disease) Code(s): I73.9 - Peripheral vascular disease, unspecified Status: Deleted (7) DM2 (diabetes mellitus, type 2) Code(s): E11.9 - Type 2 diabetes mellitus without complications Status: Deleted - Attending Attestation patient was seen and examined. Agree with above assessment and plan. <Nazario Ahumada - Last Filed: 09/24/18 17:50>
[2018-09-25] MEDS: Insulin NovoLIN Regular Correctional Sugar Inj SQ SCH ×3 (05:15→18:10)
[2018-09-25] MEDS: Heparin - SQ 10,000 UNITS/ML Vial SQ SCH ×2 (05:15→17:19)
[2018-09-25] MEDS: Senna/Docusate Sodium 8.6/50 MG Tablet PO SCH ×2 (09:21→21:03)
[2018-09-25] MEDS: Artificial Tears Opth Drops 15 ML Bottle EACH EYE SCH ×2 (09:21→21:04)
[2018-09-25] MEDS: Famotidine 20 MG Tablet PO SCH ×2 (09:22→21:03)
--- NOTE | 2018-09-25 09:36 | P.PNCC ---
Subjective Subjective Remarks/Hospital Course: No history is obtainable from the patient due to altered mental status. All history obtained from chart review and discussion with ED attending. Patient is a 58-year-old -[place] female with past medical history of type 2 diabetes, hypertension, hyperlipidemia, ESRD on HD M/W/F, CHF Echo 03/22/07 EF 30 -35%, CAD, s/p LAD stent 06/08, status post left BKA. Patient was brought to the emergency department by EMS for altered mental status. Apparently patient was found lying on the floor between 2 dressers, missed two dialysis appointments. CT of the head was negative for acute findings chest x-ray showed pulmonary vascular congestion, left lower lobe atelectasis. CT abdomen pelvis showed large 6.2 cm renal mass which has grown in size since last scan in Nov 2017, and suspicious for renal cell carcinoma. Her WBC count was 23.4 with left shift, with altered mental status this was most likely secondary to severe sepsis. Patient was empirically given vancomycin and Zosyn in the ED after getting blood cultures. Also her potassium was 6.3 patient is receiving bicarb now and nephrology had been contacted for stat dialysis I evaluated the patient in the emergency department. Patient is very lethargic encephalopathic. She mumbles a few words but did not follow commands. Even though very lethargic at this point she is protecting airway. In addition to IV bicarb I will also give 5 units of insulin and IV dextrose. Antibiotics will be continued-renally dosed vancomycin and Zosyn. Will request nephrology and urology consult. At this time critically ill with severe sepsis. 09/07: Patient is lying in bed mental status seems to be improved alert oriented x2 today. Potassium is 5.3 chest x-ray shows pulmonary edema. Will request for repeat hemodialysis today 09/13: Rapid response team activated for patient hypotension and hypoxemia. After transfer to ICU I have found patient in agonal breathing and immediately intubated her with 7.5 ET tube. Shortly after intubation the patient was pulseless and 1 cycle of CPR was performed including one injection of epinephrine, chest compressions, and sodium bicarbonate injections. Family notified about the critical condition. 09/14: Remains encephalopathic, orally intubated on mechanical ventilation. 09/15: More awake, opening eyes, squeezing my fingers with her hands on command. Remains orally intubated on mechanical ventilation. 09/16: clinically improving. following commands. on PSV 15/5/40%. HD yesterday with good volume removal. 09/17: still failing SBTs- going apneic into back-up mode. will attempt again today. likely will need HD again today. still following commands. 09/18: During CPAP trials. T-max 100.5 currently 100. -3 L with hemodialysis. Arousable and follows commands. 09/19: T-max 100.6. Currently 100.1. Appears comfortable on PSV trial. Lasted greater than 9 hours 09/18 tolerating tube feeds. White blood cell count is normalized. 09/20: T-max 100.6. Remains on CPAP trial. Lasted for hours yesterday. Palliative care discussed with family possible right [id number] amputation. Hemodialysis catheter should be removed after dialysis today. Arousable while on the ventilator 09/21: Remains encephalopathic, orally intubated on mechanical ventilation. Nephrology planning new Vas-Cath to be placed by IR tomorrow for hemodialysis 09/22: Drowsy, easily arousable, orally intubated on mechanical ventilation. Hemodialysis today. CPAP trials to decide extubation 09/23: Awake, orally intubated on mechanical ventilation, follows commands. On SIMV mode for weaning due to apneic episodes. 09/24: Drowsy, easily arousable, orally intubated on mechanical ventilation. Being dialyzed earlier at the time of my evaluation. On SIMV mode for weaning due to apneic episodes Subjective 09/25: still arousable. continues to fail SBTs, although more awake today. will again try SBT. Objective Vital Signs / I&O: Vital Signs 09/24/18 10:30 09/24/18 10:45 09/24/18 11:00 Temperature Pulse Rate 83 83 83 Respiratory Rate 10 L 6 L 8 L Blood Pressure 94/55 L 94/53 L 100/61 Pulse Oximetry 100 100 100 09/24/18 11:15 09/24/18 11:30 09/24/18 11:45 Temperature Pulse Rate 86 84 84 Respiratory Rate 13 16 9 L Blood Pressure 99/56 L 99/59 L 110/60 Pulse Oximetry 100 100 100 09/24/18 12:00 09/24/18 12:15 09/24/18 12:30 Temperature 36.7 C Pulse Rate 91 H 86 90 Respiratory Rate 21 15 21 Blood Pressure 125/64 105/59 L 153/71 H Pulse Oximetry 100 100 100 09/24/18 12:33 09/24/18 13:00 09/24/18 13:30 Temperature Pulse Rate 87 86 Respiratory Rate 6 L 13 8 L Blood Pressure 112/56 L 102/55 L Pulse Oximetry 100 100 100 09/24/18 14:00 09/24/18 14:30 09/24/18 15:00 Temperature Pulse Rate 86 84 86 Respiratory Rate 10 L 10 L 15 Blood Pressure 109/60 100/55 L 104/58 L Pulse Oximetry 100 100 100 09/24/18 15:30 09/24/18 15:52 09/24/18 16:00 Temperature 36.6 C Pulse Rate 83 87 Respiratory Rate 7 L 17 14 Blood Pressure 108/57 L 117/59 L Pulse Oximetry 100 100 100 09/24/18 16:30 09/24/18 17:00 09/24/18 17:30 Temperature Pulse Rate 86 84 83 Respiratory Rate 12 8 L 11 L Blood Pressure 118/61 110/58 L 111/57 L Pulse Oximetry 100 100 100 09/24/18 18:00 09/24/18 18:30 09/24/18 19:00 Temperature Pulse Rate 85 83 85 Respiratory Rate 8 L 8 L 14 Blood Pressure 112/57 L 113/59 L 126/61 Pulse Oximetry 100 100 100 09/24/18 19:30 09/24/18 20:00 09/24/18 20:30 Temperature 36.8 C Pulse Rate 83 89 86 Respiratory Rate 14 24 22 Blood Pressure 116/61 131/63 127/65 Pulse Oximetry 100 100 100 09/24/18 21:00 09/24/18 21:30 09/24/18 22:00 Temperature Pulse Rate 88 103 H 90 Respiratory Rate 13 26 H 19 Blood Pressure 128/61 159/75 H 133/65 Pulse Oximetry 100 99 100 09/24/18 22:30 09/24/18 23:00 09/24/18 23:30 Temperature Pulse Rate 92 H 92 H 90 Respiratory Rate 11 L 12 13 Blood Pressure 135/66 131/65 135/65 Pulse Oximetry 100 100 100 09/25/18 00:00 09/25/18 00:30 09/25/18 00:48 Temperature 36.5 C Pulse Rate 94 H 93 H Respiratory Rate 21 14 11 L Blood Pressure 143/67 H 145/70 H Pulse Oximetry 100 100 100 09/25/18 01:00 09/25/18 01:30 09/25/18 02:00 Temperature Pulse Rate 94 H 93 H 95 H Respiratory Rate 17 11 L 16 Blood Pressure 147/72 H 135/71 137/67 Pulse Oximetry 100 100 100 09/25/18 02:30 09/25/18 03:00 09/25/18 03:30 Temperature Pulse Rate 97 H 96 H 97 H Respiratory Rate 11 L 16 12 Blood Pressure 141/71 H 139/70 138/69 Pulse Oximetry 100 100 100 09/25/18 04:00 09/25/18 07:53 Temperature 36.7 C Pulse Rate 95 H Respiratory Rate 12 19 Blood Pressure 126/64 Pulse Oximetry 100 100 Intake & Output 09/24/18 09/25/18 09/25/18 18:59 06:59 18:59 Intake Total 556 / 556 487 / 487 Output Total 2500 / 2500 Balance -1944 / -1944 487 / 487 Weight 46 kg Intake: Tube Feeding 556 / 556 487 / 487 Output: Urine 0 / 0 Hemodialysis Amount 2500 / 2500 Other: Date of Last Bowel Movement 09/22/18 09/24/18 # Bowel Movements 1 # Incontinent Bowel Movements 1 Result Diagrams: 09/25/18 13:10 09/23/18 05:30 Objective Remarks: GENERAL: 58-year-old AA female, lying in bed intubated. SKIN: Warm and dry. No rash HEAD: Atraumatic. Normocephalic. EYES: Pupils equal and round, 2 mm reactive. No scleral icterus. ENT: No nasal bleeding or discharge. Mucous membranes moist NECK: Trachea midline. No JVD. CARDIOVASCULAR: RRR. sinus. RESPIRATORY: On mechanical ventilation, equal chest rise. Currently on SIMV with PSV trials GASTROINTESTINAL: Abdomen soft, non-tender, nondistended. MUSCULOSKELETAL: AV fistula in left upper arm with palpable thrill. s/p L BKA NEUROLOGICAL: Drowsy, arousable, follows commands, orally intubated on mechanical ventilation Assessment and Plan - Assessment and Plan Plan: NEURO/PSYCH: Toxic metabolic encephalopathy- improving. History of peripheral neuropathy History of glaucoma Avoid any sedating medication CT head negative for bleed. Encephalopathy most likely from metabolic causes/sepsis. EEG generalized slowing 09/15 MRI brain 09/15 no acute disease. Neurology has followed start provigil RESP: Acute hypoxic and hypercarbic Respiratory failure Pulmonary edema Currently on SIMV with PSV trial. Will attempt CPAP trial. Patient gets apneic episodes. 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 Ramirez 11/26/17 Peripheral arterial disease Hypertension Dyslipidemia Continue baby aspirin 81 mg daily severe MR continues to require volume removal. HD per nephrology. Currently not requiring vasopressors and her anti-pretenses Cardiogram revealed EF of 30%. PAP 57 mmHg. Severe TR. Mobile mitral valve mass. Will need right above or below the knee amputation to lower extremity. Palliative care consult discussing goals of therapy with family. GI: Acute protein calorie malnutrition- severe Continue 10 mg twice daily PO famotidine Tolerating Nepro tube feeds at 40 cc an hour per nutrition recommendation. Docusate sodium/senna twice daily for bowel regimen FEN/RENAL: ESRD Large right renal mass suspicious for renal cell carcinoma Hemodialysis Thursday/Thursday/Thursday per nephrology, Dr Ahumada. Urology consulted for right renal mass (previously refused work up) Sevelamer 1600 mg 3 times daily for hyperphosphatemia New Vascath placed on 09/21 by IR ID: Severe sepsis [place] Mitral Valve infective endocarditis Source of sepsis: mitral valve endocarditis, infected AV fistula IV vancomycin per ID Dr. Dowd Vascatmunir removed. New vascath to be placed prior to HD on 09/22 HEME: Anemia of chronic kidney disease Monitor CBC daily. Follow trends. No indication for blood transfusion at this time ENDO: Diabetes mellitus, type II med-dose insulin sliding scale q6h PROPH: Heparin 5000 subcutaneous every 12 for DVT prophylaxis. PO famotidine ACCESS: Right groin central line 09/13/2018- discontinued 09/15 Discontinue right IJ hemodialysis catheter 09/20 after hemodialysis piv Alternate code.
[2018-09-25 13:22] LABS: Mean Corpuscular Hemoglobin 26.9 pg (27.0-34.0); Mean Corpuscular Volume 84.1 fL (80.0-100.0); Mean Platelet Volume 9.6 fL (7.0-11.0); Platelet Count 304 th/mm3 (150-450); Red Blood Count 2.97 mil/mm3 (4.00-5.30); Red Cell Distribution Width 17.9 % (11.6-17.2); White Blood Count 11.3 th/mm3 (4.0-11.0)
[2018-09-25 14:06] LABS: Calcium 9.1 mg/dL (8.5-10.1); Carbon Dioxide 35.8 meq/L (21.0-32.0); Magnesium 2.6 mg/dL (1.5-2.5); Phosphorus 2.8 mg/dL (2.5-4.9); Potassium 3.8 meq/L (3.5-5.1)
--- NOTE | 2018-09-25 14:43 | P.PNNP ---
Subjective Interval history: Patient has pseudoaneurysm excision AV graft placement Physical Exam Vital signs: Vital Signs 09/24/18 15:00 09/24/18 15:30 09/24/18 15:52 Temperature Pulse Rate 86 83 Respiratory Rate 15 7 L 17 Blood Pressure 104/58 L 108/57 L Pulse Oximetry 100 100 100 09/24/18 16:00 09/24/18 16:30 09/24/18 17:00 Temperature 98 F Pulse Rate 87 86 84 Respiratory Rate 14 12 8 L Blood Pressure 117/59 L 118/61 110/58 L Pulse Oximetry 100 100 100 09/24/18 17:30 09/24/18 18:00 09/24/18 18:30 Temperature Pulse Rate 83 85 83 Respiratory Rate 11 L 8 L 8 L Blood Pressure 111/57 L 112/57 L 113/59 L Pulse Oximetry 100 100 100 09/24/18 19:00 09/24/18 19:30 09/24/18 20:00 Temperature 98.2 F Pulse Rate 85 83 89 Respiratory Rate 14 14 24 Blood Pressure 126/61 116/61 131/63 Pulse Oximetry 100 100 100 09/24/18 20:30 09/24/18 21:00 09/24/18 21:30 Temperature Pulse Rate 86 88 103 H Respiratory Rate 22 13 26 H Blood Pressure 127/65 128/61 159/75 H Pulse Oximetry 100 100 99 09/24/18 22:00 09/24/18 22:30 09/24/18 23:00 Temperature Pulse Rate 90 92 H 92 H Respiratory Rate 19 11 L 12 Blood Pressure 133/65 135/66 131/65 Pulse Oximetry 100 100 100 09/24/18 23:30 09/25/18 00:00 09/25/18 00:30 Temperature 97.7 F Pulse Rate 90 94 H 93 H Respiratory Rate 13 21 14 Blood Pressure 135/65 143/67 H 145/70 H Pulse Oximetry 100 100 100 09/25/18 00:48 09/25/18 01:00 09/25/18 01:30 Temperature Pulse Rate 94 H 93 H Respiratory Rate 11 L 17 11 L Blood Pressure 147/72 H 135/71 Pulse Oximetry 100 100 100 09/25/18 02:00 09/25/18 02:30 09/25/18 03:00 Temperature Pulse Rate 95 H 97 H 96 H Respiratory Rate 16 11 L 16 Blood Pressure 137/67 141/71 H 139/70 Pulse Oximetry 100 100 100 09/25/18 03:30 09/25/18 04:00 09/25/18 07:53 Temperature 98.0 F Pulse Rate 97 H 95 H Respiratory Rate 12 12 19 Blood Pressure 138/69 126/64 Pulse Oximetry 100 100 100 09/25/18 08:00 09/25/18 10:14 09/25/18 12:00 Temperature 98.1 F 98.3 F Pulse Rate 70 85 Respiratory Rate 12 10 L 6 L Blood Pressure 126/61 136/63 Pulse Oximetry 100 100 100 09/25/18 13:57 Temperature Pulse Rate Respiratory Rate Blood Pressure Pulse Oximetry 100 Intake & Output 09/24/18 09/25/18 09/25/18 18:59 06:59 18:59 Intake Total 556 / 556 487 / 487 Output Total 2500 / 2500 Balance -1944 / -1944 487 / 487 Weight 46 kg Intake: Tube Feeding 556 / 556 487 / 487 Output: Urine 0 / 0 Hemodialysis Amount 2500 / 2500 Other: Date of Last Bowel Movement 09/22/18 09/24/18 09/24/18 # Bowel Movements 1 # Incontinent Bowel Movements 1 Narrative: On the vent. Unresponsive today. Chest: vented breath sounds bilaterally, no rhonchi, no wheezing. Heart: RRR. 3/6 systolic murmur. No edema. s/p left BKA. Ischemic right lower extremity. Very frail, generalized muscle wasting. Assessment and Plan - Assessment (1) ESRD (end stage renal disease) Code(s): N18.6 - End stage renal disease Status: Deleted Plan: Dialysis MWF. Next dialysis on Thursday She is s/p repair/excision of infected pseudoaneurysm of AVF, with apparent interposition bovine graft. Fistula pseudo aneurysm grossly infected. Previous steal history - no apparent signs of steal at this point. ---- (2) Hyperkalemia Code(s): E87.5 - Hyperkalemia Status: Deleted Plan: Improved. . (3) Renal mass Code(s): N28.89 - Other specified disorders of kidney and ureter Status: Acute Plan: Renal mass has grown in size, most likely malignancy. Urology note reviewed, to follow up after discharge. Previously the patient had refused workup. (4) Severe sepsis Code(s): A41.9 - Sepsis, unspecified organism; R65.20 - Severe sepsis without septic shock Status: Deleted Plan: MRSA sepsis, endocarditis. MRI of the brain negative for septic emboli. She has mitral valve vegetation. On Vancomycin. s/p excision of infected pseudoaneurysm of AVF. (5) CAD (coronary artery disease) Code(s): I25.10 - Atherosclerotic heart disease of [place] coronary artery without angina pectoris Status: Deleted (6) PAD (peripheral artery disease) Code(s): I73.9 - Peripheral vascular disease, unspecified Status: Deleted Plan: s/p left BKA. Poor circulation of right lower extremity. Vascular surgery following. Not a candidate for revascularization. (7) DM2 (diabetes mellitus, type 2) Code(s): E11.9 - Type 2 diabetes mellitus without complications Status: Deleted Plan: maintain blood glucose between 140 and 180 while hospitalized.
[2018-09-25 16:36] LABS: ABG PCO2 47 mmHg (38-42); ABG PO2 101 mmHG (61-120)
[2018-09-25] MEDS: Modafinil 200 MG Tablet PO SCH (17:18)
[2018-09-26] MEDS: Insulin NovoLIN Regular Correctional Sugar Inj SQ SCH ×4 (01:46→17:46)
[2018-09-26] MEDS: Heparin - SQ 10,000 UNITS/ML Vial SQ SCH ×2 (06:10→17:46)
[2018-09-26 07:07] LABS: Hematocrit 26.5 % (35.0-46.0); Hemoglobin 8.4 gm/dL (11.6-15.3); Mean Corpuscular HGB Conc 31.8 % (32.0-36.0); Mean Corpuscular Hemoglobin 26.8 pg (27.0-34.0); Mean Corpuscular Volume 84.4 fL (80.0-100.0); Mean Platelet Volume 10.1 fL (7.0-11.0); Platelet Count 375 th/mm3 (150-450); Red Blood Count 3.14 mil/mm3 (4.00-5.30); Red Cell Distribution Width 18.1 % (11.6-17.2); White Blood Count 11.9 th/mm3 (4.0-11.0)
--- NOTE | 2018-09-26 07:26 | P.PNCC ---
Subjective Subjective Remarks/Hospital Course: No history is obtainable from the patient due to altered mental status. All history obtained from chart review and discussion with ED attending. Patient is a 58-year-old -[place] female with past medical history of type 2 diabetes, hypertension, hyperlipidemia, ESRD on HD M/W/F, CHF Echo 03/22/07 EF 30 -35%, CAD, s/p LAD stent 06/08, status post left BKA. Patient was brought to the emergency department by EMS for altered mental status. Apparently patient was found lying on the floor between 2 dressers, missed two dialysis appointments. CT of the head was negative for acute findings chest x-ray showed pulmonary vascular congestion, left lower lobe atelectasis. CT abdomen pelvis showed large 6.2 cm renal mass which has grown in size since last scan in Nov 2017, and suspicious for renal cell carcinoma. Her WBC count was 23.4 with left shift, with altered mental status this was most likely secondary to severe sepsis. Patient was empirically given vancomycin and Zosyn in the ED after getting blood cultures. Also her potassium was 6.3 patient is receiving bicarb now and nephrology had been contacted for stat dialysis I evaluated the patient in the emergency department. Patient is very lethargic encephalopathic. She mumbles a few words but did not follow commands. Even though very lethargic at this point she is protecting airway. In addition to IV bicarb I will also give 5 units of insulin and IV dextrose. Antibiotics will be continued-renally dosed vancomycin and Zosyn. Will request nephrology and urology consult. At this time critically ill with severe sepsis. 09/07: Patient is lying in bed mental status seems to be improved alert oriented x2 today. Potassium is 5.3 chest x-ray shows pulmonary edema. Will request for repeat hemodialysis today 09/13: Rapid response team activated for patient hypotension and hypoxemia. After transfer to ICU I have found patient in agonal breathing and immediately intubated her with 7.5 ET tube. Shortly after intubation the patient was pulseless and 1 cycle of CPR was performed including one injection of epinephrine, chest compressions, and sodium bicarbonate injections. Family notified about the critical condition. 09/14: Remains encephalopathic, orally intubated on mechanical ventilation. 09/15: More awake, opening eyes, squeezing my fingers with her hands on command. Remains orally intubated on mechanical ventilation. 09/16: clinically improving. following commands. on PSV 15/5/40%. HD yesterday with good volume removal. 09/17: still failing SBTs- going apneic into back-up mode. will attempt again today. likely will need HD again today. still following commands. 09/18: During CPAP trials. T-max 100.5 currently 100. -3 L with hemodialysis. Arousable and follows commands. 09/19: T-max 100.6. Currently 100.1. Appears comfortable on PSV trial. Lasted greater than 9 hours 09/18 tolerating tube feeds. White blood cell count is normalized. 09/20: T-max 100.6. Remains on CPAP trial. Lasted for hours yesterday. Palliative care discussed with family possible right [id number] amputation. Hemodialysis catheter should be removed after dialysis today. Arousable while on the ventilator 09/21: Remains encephalopathic, orally intubated on mechanical ventilation. Nephrology planning new Vas-Cath to be placed by IR tomorrow for hemodialysis 09/22: Drowsy, easily arousable, orally intubated on mechanical ventilation. Hemodialysis today. CPAP trials to decide extubation 09/23: Awake, orally intubated on mechanical ventilation, follows commands. On SIMV mode for weaning due to apneic episodes. 09/24: Drowsy, easily arousable, orally intubated on mechanical ventilation. Being dialyzed earlier at the time of my evaluation. On SIMV mode for weaning due to apneic episodes Subjective 09/25: still arousable. continues to fail SBTs, although more awake today. will again try SBT. 09/26: extubated and doing well on nc o2. denies complaints. still drowsy, but more awake than yesterday. hemodynamics stable. Objective Vital Signs / I&O: Vital Signs 09/25/18 10:14 09/25/18 12:00 09/25/18 13:57 Temperature 36.8 C Pulse Rate 85 Respiratory Rate 10 L 6 L Blood Pressure 136/63 Pulse Oximetry 100 100 100 09/25/18 16:00 09/25/18 20:00 09/26/18 00:00 Temperature 36.6 C 37.3 C 37.5 C Pulse Rate 94 H 106 H 106 H Respiratory Rate 12 28 H 24 Blood Pressure 151/72 H 151/77 H 157/78 H Pulse Oximetry 100 100 100 09/26/18 04:00 Temperature 37.4 C Pulse Rate 106 H Respiratory Rate 26 H Blood Pressure 131/71 Pulse Oximetry 99 Intake & Output 09/25/18 09/26/18 09/26/18 19:59 06:59 18:59 Intake Total Output Total Balance Weight Intake: IV Vancomycin Inj 1,250 MG In NS Inj 250 ML @ 250 mls/hr IV.SIG WITH [facility] Rx#:[id number] Oral Tube Feeding Output: Urine Other: Date of Last Bowel Movement # Bowel Movements Result Diagrams: 09/26/18 05:57 09/25/18 13:10 Objective Remarks: GENERAL: 58-year-old AA female, lying in bed, nc in place, no acute distress. HEAD: Atraumatic. Normocephalic. EYES: Pupils equal and round, 2 mm reactive. No scleral icterus. ENT: No nasal bleeding or discharge. Mucous membranes moist NECK: Trachea midline. No JVD. CARDIOVASCULAR: RRR. sinus. RESPIRATORY: o2 by nc. equal chest rise. unlabored. GASTROINTESTINAL: Abdomen soft, non-tender, nondistended. MUSCULOSKELETAL: AV fistula in left upper arm with palpable thrill. s/p L BKA NEUROLOGICAL: Drowsy, arousable, follows commands Assessment and Plan - Assessment and Plan Plan: NEURO/PSYCH: Toxic metabolic encephalopathy- improving. History of peripheral neuropathy History of glaucoma Avoid any sedating medication CT head negative for bleed. Encephalopathy most likely from metabolic causes/sepsis. EEG generalized slowing 09/15 MRI brain 09/15 no acute disease. Neurology has followed continue provigil RESP: Acute hypoxic and hypercarbic Respiratory failure- resolving. 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 Ramirez 11/26/17 Peripheral arterial disease Hypertension Dyslipidemia Continue baby aspirin 81 mg daily severe MR continues to require volume removal. HD per nephrology. Currently not requiring vasopressors and her anti-pretenses Cardiogram revealed EF of 30%. PAP 57 mmHg. Severe TR. [place] mitral valve mass. Will need right above or below the knee amputation to lower extremity. Palliative care consult discussing goals of therapy with family. GI: Acute protein calorie malnutrition- severe Continue 10 mg twice daily PO famotidine Tolerating Nepro tube feeds at 40 cc an hour per nutrition recommendation. Docusate sodium/senna twice daily for bowel regimen FEN/RENAL: ESRD Large right renal mass suspicious for renal cell carcinoma Hemodialysis Thursday/Thursday/Thursday per nephrology, Dr Ahumada. Urology consulted for right renal mass (previously refused work up) Sevelamer 1600 mg 3 times daily for hyperphosphatemia New Vascath placed on 09/21 by IR ID: Severe sepsis [place] Mitral Valve infective endocarditis Source of sepsis: mitral valve endocarditis, infected AV fistula IV vancomycin per ID Dr. Dowd Vascatmunir removed. New vascath to be placed prior to HD on 10/31 HEME: Anemia of chronic kidney disease Monitor CBC daily. Follow trends. No indication for blood transfusion at this time ENDO: Diabetes mellitus, type II med-dose insulin sliding scale q6h PROPH: Heparin 5000 subcutaneous every 12 for DVT prophylaxis. PO famotidine ACCESS: Right groin central line 09/13/2018- discontinued 09/15 Discontinue right IJ hemodialysis catheter 09/20 after hemodialysis piv Alternate code.
[2018-09-26 07:43] LABS: Alanine Aminotransferase 18 U/L (10-53); Albumin 1.8 g/dL (3.4-5.0); Alkaline Phosphatase 355 U/L (45-117); Anion Gap 9 meq/L (5-15); Aspartate Aminotransferase 35 U/L (15-37); Blood Urea Nitrogen 54 mg/dL (7-18); Calcium 9.6 mg/dL (8.5-10.1); Carbon Dioxide 33.2 meq/L (21.0-32.0); Chloride 97 meq/L (98-107); Glomerular Filtration Rate 13 mL/min (>89); Glucose,Random 157 mg/dL (74-106); Magnesium 2.7 mg/dL (1.5-2.5); Phosphorus 3.7 mg/dL (2.5-4.9); Potassium 4.3 meq/L (3.5-5.1); Sodium 139 meq/L (136-145); Total Protein 7.7 g/dL (6.4-8.2)
[2018-09-26] MEDS: Famotidine 20 MG Tablet PO SCH ×2 (09:14→20:46)
[2018-09-26] MEDS: Senna/Docusate Sodium 8.6/50 MG Tablet PO SCH ×2 (09:14→20:47)
[2018-09-26] MEDS: Artificial Tears Opth Drops 15 ML Bottle EACH EYE SCH ×2 (09:14→20:47)
[2018-09-26] MEDS: Modafinil 200 MG Tablet PO SCH (10:00)
--- NOTE | 2018-09-26 12:01 | P.PNVS ---
Subjective Subjective/Hospital Course: Extubated last night. Objective Vital Signs / I&O: Vital Signs 09/25/18 13:57 09/25/18 16:00 09/25/18 20:00 Temperature 98 F 99.2 F Pulse Rate 94 H 106 H Respiratory Rate 12 28 H Blood Pressure 151/72 H 151/77 H Pulse Oximetry 100 100 100 09/26/18 00:00 09/26/18 04:00 09/26/18 07:00 Temperature 99.5 F 99.4 F Pulse Rate 106 H 106 H Respiratory Rate 24 26 H Blood Pressure 157/78 H 131/71 Pulse Oximetry 100 99 100 09/26/18 08:00 Temperature 99.1 F Pulse Rate 120 H Respiratory Rate 20 Blood Pressure 141/72 H Pulse Oximetry 100 Intake & Output 09/25/18 09/26/18 09/26/18 19:59 06:59 18:59 Intake Total Output Total Balance Weight Intake: IV Vancomycin Inj 1,250 MG In NS Inj 250 ML @ 250 mls/hr IV.SIG WITH DIALYSIS [facility] Rx#:[id number] Oral Tube Feeding Output: Urine Other: Date of Last Bowel Movement 09/24/18 # Bowel Movements Physical Exam: Right lower extremity with dry gangrene. Left below-knee amputation wound stable. Left upper extremity AV graft with good thrill. There is evidence of ischemic changes to the left third digit. Laboratory Results - last 24 hr 09/25/18 09/25/18 09/25/18 13:10 13:10 16:20 WBC 11.3 H RBC 2.97 L Hgb 8.0 L Hct 25.0 L MCV 84.1 MCH 26.9 L MCHC 32.0 RDW 17.9 H Plt Count 304 MPV 9.6 Puncture Site Right brachial Patient Temperature 98.6 O2 Saturation 95 ABG pH 7.46 H ABG pCO2 47 H ABG pO2 101 ABG HCO3 33 H ABG O2 Content 10.5 L ABG Base Excess 9.0 H ABG Methemoglobin 1.6 Hemoglobin 7.8 L* Carboxyhemoglobin 1.5 O2 Delivery Device 28%trach piece Liter Flow 5.00 Inspired O2 28 Critical Value Yes Sodium 142 Potassium 3.8 Chloride 102 Carbon Dioxide 35.8 H Anion Gap 4 L BUN 42 H Creatinine 3.51 H Estimated GFR 16 L POC Glucose Random Glucose 176 H Calcium 9.1 Phosphorus 2.8 Magnesium 2.6 H Total Bilirubin AST ALT Alkaline Phosphatase Total Protein Albumin Prealbumin 8 L 09/25/18 09/26/18 09/26/18 17:25 01:48 EST 05:57 WBC 11.9 H RBC 3.14 L Hgb 8.4 L Hct 26.5 L MCV 84.4 MCH 26.8 L MCHC 31.8 L RDW 18.1 H Plt Count 375 MPV 10.1 Puncture Site Patient Temperature O2 Saturation ABG pH ABG pCO2 ABG pO2 ABG HCO3 ABG O2 Content ABG Base Excess ABG Methemoglobin Hemoglobin Carboxyhemoglobin O2 Delivery Device Liter Flow Inspired O2 Critical Value Sodium Potassium Chloride Carbon Dioxide Anion Gap BUN Creatinine Estimated GFR POC Glucose 170 H 157 H Random Glucose Calcium Phosphorus Magnesium Total Bilirubin AST ALT Alkaline Phosphatase Total Protein Albumin Prealbumin 09/26/18 09/26/18 05:57 06:12 WBC RBC Hgb Hct MCV MCH MCHC RDW Plt Count MPV Puncture Site Patient Temperature O2 Saturation ABG pH ABG pCO2 ABG pO2 ABG HCO3 ABG O2 Content ABG Base Excess ABG Methemoglobin Hemoglobin Carboxyhemoglobin O2 Delivery Device Liter Flow Inspired O2 Critical Value Sodium 139 Potassium 4.3 Chloride 97 L Carbon Dioxide 33.2 H Anion Gap 9 BUN 54 H Creatinine 4.24 H Estimated GFR 13 L POC Glucose 168 H Random Glucose 157 H Calcium 9.6 Phosphorus 3.7 Magnesium 2.7 H Total Bilirubin 0.8 AST 35 ALT 18 Alkaline Phosphatase 355 H Total Protein 7.7 Albumin 1.8 L Prealbumin Assessment and Plan - Assessment (1) Abscess of upper extremity Code(s): L02.419 - Cutaneous abscess of limb, unspecified Status: Acute (2) Toxic metabolic encephalopathy Code(s): G92 - Toxic encephalopathy Status: Deleted (3) Severe sepsis Code(s): A41.9 - Sepsis, unspecified organism; R65.20 - Severe sepsis without septic shock Status: Deleted (4) PAD (peripheral artery disease) Code(s): I73.9 - Peripheral vascular disease, unspecified Status: Deleted - Plan Left upper extremity abscess, infected hematoma. S/P excision of infected PSA. Now showing chronic ischemia to the left third digit. Most likely recurrent steal syndrome. May use left upper extremity AV fistula for hemodialysis. Right lower extremity peripheral vascular disease dry gangrene, likely failed intervention from months ago no other revascularization options - needs AKA LBKA stump will need revision in the future, conversion to AKA prognosis is poor.
--- NOTE | 2018-09-26 17:01 | P.PNNP ---
Subjective Interval history: Patient extubated yesterday Physical Exam Vital signs: Vital Signs 09/25/18 20:00 09/26/18 00:00 09/26/18 04:00 Temperature 99.2 F 99.5 F 99.4 F Pulse Rate 106 H 106 H 106 H Respiratory Rate 28 H 24 26 H Blood Pressure 151/77 H 157/78 H 131/71 Pulse Oximetry 100 100 99 09/26/18 07:00 09/26/18 08:00 09/26/18 12:00 Temperature 99.1 F 99.0 F Pulse Rate 120 H 119 H Respiratory Rate 20 18 Blood Pressure 141/72 H 127/68 Pulse Oximetry 100 100 100 Intake & Output 09/25/18 09/26/18 09/26/18 19:59 06:59 18:59 Intake Total Output Total Balance Weight Intake: IV Vancomycin Inj 1,250 MG In NS Inj 250 ML @ 250 mls/hr IV.SIG WITH DIALYSIS [facility] Rx#:[id number] Oral Tube Feeding Output: Urine Other: Date of Last Bowel Movement 09/24/18 # Bowel Movements Narrative: Alert Chest: Diminished at bases Heart: RRR. 3/6 systolic murmur. No edema. s/p left BKA. Ischemic right lower extremity. Very frail, generalized muscle wasting. Assessment and Plan - Assessment (1) ESRD (end stage renal disease) Code(s): N18.6 - End stage renal disease Status: Deleted Plan: Dialysis MWF. Next dialysis on Thursday She is s/p repair/excision of infected pseudoaneurysm of AVF, with apparent interposition bovine graft. Fistula pseudo aneurysm grossly infected. Previous steal history - no apparent signs of steal at this point. Dr. Ahumada to follow ---- (2) Hyperkalemia Code(s): E87.5 - Hyperkalemia Status: Deleted Plan: Improved. . (3) Renal mass Code(s): N28.89 - Other specified disorders of kidney and ureter Status: Acute Plan: Renal mass has grown in size, most likely malignancy. Urology note reviewed, to follow up after discharge. Previously the patient had refused workup. (4) Severe sepsis Code(s): A41.9 - Sepsis, unspecified organism; R65.20 - Severe sepsis without septic shock Status: Deleted Plan: MRSA sepsis, endocarditis. MRI of the brain negative for septic emboli. She has mitral valve vegetation. On Vancomycin. s/p excision of infected pseudoaneurysm of AVF. (5) CAD (coronary artery disease) Code(s): I25.10 - Atherosclerotic heart disease of [place] coronary artery without angina pectoris Status: Deleted (6) PAD (peripheral artery disease) Code(s): I73.9 - Peripheral vascular disease, unspecified Status: Deleted Plan: s/p left BKA. Poor circulation of right lower extremity. Vascular surgery following. Not a candidate for revascularization. (7) DM2 (diabetes mellitus, type 2) Code(s): E11.9 - Type 2 diabetes mellitus without complications Status: Deleted Plan: maintain blood glucose between 140 and 180 while hospitalized.
[2018-09-26] MEDS: Acetaminophen 325 MG Tablet PO PRN (18:47)
[2018-09-27] MEDS: Insulin NovoLIN Regular Correctional Sugar Inj SQ SCH ×4 (00:06→17:49)
[2018-09-27 05:19] LABS: Hematocrit 25.2 % (35.0-46.0); Hemoglobin 7.9 gm/dL (11.6-15.3); Mean Corpuscular HGB Conc 31.3 % (32.0-36.0); Mean Corpuscular Hemoglobin 26.3 pg (27.0-34.0); Mean Corpuscular Volume 84.1 fL (80.0-100.0); Mean Platelet Volume 9.7 fL (7.0-11.0); Platelet Count 417 th/mm3 (150-450); Red Cell Distribution Width 18.1 % (11.6-17.2); White Blood Count 14.5 th/mm3 (4.0-11.0)
[2018-09-27] MEDS: Heparin - SQ 10,000 UNITS/ML Vial SQ SCH ×2 (05:20→17:56)
[2018-09-27 05:51] LABS: Alanine Aminotransferase 27 U/L (10-53); Albumin 1.9 g/dL (3.4-5.0); Alkaline Phosphatase 382 U/L (45-117); Anion Gap 13 meq/L (5-15); Aspartate Aminotransferase 89 U/L (15-37); Blood Urea Nitrogen 74 mg/dL (7-18); Calcium 9.6 mg/dL (8.5-10.1); Carbon Dioxide 29.5 meq/L (21.0-32.0); Chloride 98 meq/L (98-107); Glomerular Filtration Rate 10 mL/min (>89); Glucose,Random 111 mg/dL (74-106); Potassium 5.3 meq/L (3.5-5.1); Sodium 140 meq/L (136-145); Total Protein 8.3 g/dL (6.4-8.2)
[2018-09-27] MEDS: Artificial Tears Opth Drops 15 ML Bottle EACH EYE SCH ×2 (09:05→20:31)
[2018-09-27] MEDS: Vancomycin Inj 1,250 MG in Sodium Chlor 0.9% Inj 250 ML IV.SIG SCH (10:29)
[2018-09-27] MEDS: Heparin 10,000 UNITS/10 ML Vial (for IV use) OTHER PRN (10:29)
--- NOTE | 2018-09-27 10:54 | P.PNNP ---
Subjective Interval history: Patient was seen resting in bed, on dialysis. Patient was able to answer questions. Patient is no longer intubated. Patient was on 2K, blood flow rate of 300mL/min, UF goal of 2L. <Marshal Chávez - Last Filed: 09/27/18 11:09> Physical Exam Vital signs: Vital Signs 09/26/18 12:00 09/26/18 16:00 09/26/18 19:20 Temperature 99.0 F 98.9 F Pulse Rate 119 H 116 H Respiratory Rate 18 18 Blood Pressure 127/68 110/65 Pulse Oximetry 100 100 93 L 09/26/18 20:00 09/26/18 22:00 09/26/18 22:45 Temperature 98.4 F Pulse Rate 110 H 99 H Respiratory Rate 32 H 27 H Blood Pressure 68/50 L 95/57 L Pulse Oximetry 92 L 94 L 09/26/18 23:00 09/26/18 23:15 09/26/18 23:30 Temperature Pulse Rate 98 H 100 H 96 H Respiratory Rate 37 H 31 H 27 H Blood Pressure 112/62 129/70 118/63 Pulse Oximetry 94 L 96 93 L 09/27/18 00:00 09/27/18 00:30 09/27/18 01:00 Temperature 98.8 F Pulse Rate 96 H 97 H 92 H Respiratory Rate 32 H 32 H 20 Blood Pressure 127/71 139/74 117/65 Pulse Oximetry 94 L 95 93 L 09/27/18 01:30 09/27/18 02:00 09/27/18 02:30 Temperature Pulse Rate 96 H 91 H 90 Respiratory Rate 26 H 22 22 Blood Pressure 148/73 H 124/67 135/74 Pulse Oximetry 96 94 L 96 09/27/18 03:00 09/27/18 03:30 09/27/18 04:00 Temperature 97.8 F Pulse Rate 92 H 95 H 91 H Respiratory Rate 26 H 28 H 26 H Blood Pressure 150/82 H 167/84 H 162/76 H Pulse Oximetry 96 100 96 09/27/18 04:01 09/27/18 04:30 09/27/18 05:00 Temperature Pulse Rate 90 87 85 Respiratory Rate 21 18 19 Blood Pressure 162/76 H 150/79 H 131/72 Pulse Oximetry 97 96 95 09/27/18 05:30 09/27/18 06:00 09/27/18 06:30 Temperature Pulse Rate 88 84 88 Respiratory Rate 16 11 L 26 H Blood Pressure 150/75 H 124/68 152/80 H Pulse Oximetry 95 95 96 09/27/18 07:00 09/27/18 07:31 09/27/18 07:45 Temperature Pulse Rate 84 87 Respiratory Rate 19 36 H Blood Pressure 137/72 149/75 H Pulse Oximetry 95 100 92 L 09/27/18 08:00 09/27/18 08:30 09/27/18 08:45 Temperature 97.6 F Pulse Rate 86 85 85 Respiratory Rate 30 H 18 26 H Blood Pressure 150/76 H 133/70 127/71 Pulse Oximetry 92 L 91 L 92 L 09/27/18 09:00 09/27/18 09:15 Temperature Pulse Rate 87 84 Respiratory Rate 25 H 16 Blood Pressure 136/76 137/67 Pulse Oximetry 92 L 93 L Intake & Output 09/26/18 09/27/18 09/27/18 18:59 06:59 18:59 Intake Total 0 / 0 0 / 0 Output Total 0 / 0 0 / 0 Balance 0 / 0 0 / 0 Weight 46 kg Intake: Oral 0 / 0 0 / 0 Output: Urine 0 / 0 0 / 0 Other: Date of Last Bowel Movement 09/24/18 09/27/18 09/27/18 # Bowel Movements 0 1 - Constitutional no acute distress - Routine HEENT Exam Head: Present: normocephalic Eye: Present: EOMI, PERRL ENT: Present: mucous membranes moist - Routine Neck Exam Present: trachea midline - Routine Respiratory Exam Present: decreased breath sounds. Absent: accessory muscle use Comments: Decreased breath sounds at bases - Routine Cardiovascular Exam Present: RRR, murmur - Routine Abdominal Exam Present: soft - Routine Extremities Exam Comments: Patient has left BKA. Ischemic right lower extremity with multiple toe amputations. - Routine Neurological Exam Present: alert <Marshal Chávez - Last Filed: 09/27/18 11:09> Vital signs: Vital Signs 09/27/18 10:00 09/27/18 10:15 09/27/18 10:30 Temperature Pulse Rate 86 86 89 Respiratory Rate 18 20 20 Blood Pressure 129/71 129/68 144/76 H Pulse Oximetry 93 L 94 L 94 L 09/27/18 10:45 09/27/18 11:00 11/05/18 11:15 Temperature Pulse Rate 84 84 83 Respiratory Rate 14 17 16 Blood Pressure 123/67 118/59 L 121/64 Pulse Oximetry 93 L 93 L 94 L 09/27/18 11:30 09/27/18 11:45 09/27/18 12:00 Temperature 98.2 F Pulse Rate 85 84 83 Respiratory Rate 26 H 23 19 Blood Pressure 121/67 128/70 121/62 Pulse Oximetry 93 L 93 L 93 L 09/27/18 13:00 09/27/18 14:00 09/27/18 15:00 Temperature Pulse Rate 83 85 85 Respiratory Rate 18 18 6 L Blood Pressure 118/64 114/59 L 119/63 Pulse Oximetry 92 L 92 L 93 L 09/27/18 16:00 09/27/18 17:00 09/27/18 18:00 Temperature 99.8 F H Pulse Rate 89 89 90 Respiratory Rate 19 20 29 H Blood Pressure 130/68 138/70 134/74 Pulse Oximetry 96 95 96 09/27/18 19:00 09/27/18 19:52 09/27/18 20:00 Temperature 99.0 F Pulse Rate 87 90 Respiratory Rate 18 22 Blood Pressure 123/64 122/61 Pulse Oximetry 100 100 99 09/27/18 21:00 09/27/18 22:00 09/27/18 23:00 Temperature Pulse Rate 91 H 91 H 91 H Respiratory Rate 23 24 33 H Blood Pressure 120/65 123/68 Pulse Oximetry 96 84 L 09/27/18 23:05 09/27/18 23:46 09/28/18 00:00 Temperature 98.9 F Pulse Rate 92 H 87 Respiratory Rate 13 26 H Blood Pressure 113/67 109/59 L Pulse Oximetry 94 L 100 09/28/18 01:00 09/28/18 02:00 09/28/18 03:00 Temperature Pulse Rate 88 89 89 Respiratory Rate 27 H 26 H 22 Blood Pressure 93/52 L 117/68 124/68 Pulse Oximetry 100 98 100 09/28/18 04:00 09/28/18 05:00 09/28/18 06:00 Temperature 98.2 F Pulse Rate 92 H 88 89 Respiratory Rate 25 H 17 18 Blood Pressure 134/70 135/65 131/65 Pulse Oximetry 99 100 100 09/28/18 07:00 09/28/18 08:00 09/28/18 09:00 Temperature 99.1 F Pulse Rate 90 90 87 Respiratory Rate 26 H 23 28 H Blood Pressure 125/67 117/63 116/62 Pulse Oximetry 100 96 95 Intake & Output 09/27/18 09/28/18 09/28/18 18:59 06:59 18:59 Intake Total 262.5 / 262.5 120 / 120 Output Total 4650 / 4650 0 / 0 Balance -4387.5 / -4387.5 120 / 120 Weight 42.5 kg Intake: IV 262.5 / 262.5 Vancomycin Inj 1,250 MG In NS 262.5 / 262.5 Inj 250 ML @ 250 mls/hr IV.SIG WITH DIALYSIS [facility] Rx#:[id number] Oral 0 / 0 120 / 120 Tube Feeding 0 / 0 Tube Irrigant 0 / 0 Water Bolus Amount 0 / 0 Output: Urine 0 / 0 0 / 0 Stool 0 / 0 Urine/Stool Mix 0 / 0 Hemodialysis Amount 4600 / 4600 Estimated Blood Loss 50 / 50 Other: Post Void Residual 0 # Voids 0 # Incontinent Voids 0 # Urine Diapers 0 Date of Last Bowel Movement 09/27/18 09/28/18 09/28/18 # Bowel Movements 3 1 # Incontinent Bowel Movements 1 <Nazario Ahumada - Last Filed: 09/28/18 09:48> Assessment and Plan - Assessment (1) ESRD (end stage renal disease) Code(s): N18.6 - End stage renal disease Status: Deleted Plan: Dialysis MWF. Patient was seen on dialysis, on 2K, blood flow rate of 300mL/min, UF goal of 2L. Patient's Hgb 7.9, 14,000 units of Epogen ordered, to be given with dialysis. She is s/p repair/excision of infected pseudoaneurysm of AVF. (2) Hyperkalemia Code(s): E87.5 - Hyperkalemia Status: Deleted Plan: K is 5.3. Should improve with dialysis today. . (3) Renal mass Code(s): N28.89 - Other specified disorders of kidney and ureter Status: Acute Plan: Renal mass has grown in size, most likely malignancy. Urology note reviewed, to follow up after discharge. Previously the patient had refused workup. (4) Severe sepsis Code(s): A41.9 - Sepsis, unspecified organism; R65.20 - Severe sepsis without septic shock Status: Deleted Plan: MRSA sepsis, endocarditis. MRI of the brain negative for septic emboli. She has mitral valve vegetation. On Vancomycin. s/p excision of infected pseudoaneurysm of AVF. (5) CAD (coronary artery disease) Code(s): I25.10 - Atherosclerotic heart disease of [place] coronary artery without angina pectoris Status: Deleted (6) PAD (peripheral artery disease) Code(s): I73.9 - Peripheral vascular disease, unspecified Status: Deleted Plan: s/p left BKA. Poor circulation of right lower extremity. Vascular surgery following. Not a candidate for revascularization. (7) DM2 (diabetes mellitus, type 2) Code(s): E11.9 - Type 2 diabetes mellitus without complications Status: Deleted Plan: maintain blood glucose between 140 and 180 while hospitalized. <Marshal Chávez - Last Filed: 09/27/18 11:09> - Assessment (1) ESRD (end stage renal disease) Code(s): N18.6 - End stage renal disease Status: Deleted (2) Hyperkalemia Code(s): E87.5 - Hyperkalemia Status: Deleted (3) Renal mass Code(s): N28.89 - Other specified disorders of kidney and ureter Status: Acute (4) Severe sepsis Code(s): A41.9 - Sepsis, unspecified organism; R65.20 - Severe sepsis without septic shock Status: Deleted (5) CAD (coronary artery disease) Code(s): I25.10 - Atherosclerotic heart disease of [place] coronary artery without angina pectoris Status: Deleted (6) PAD (peripheral artery disease) Code(s): I73.9 - Peripheral vascular disease, unspecified Status: Deleted (7) DM2 (diabetes mellitus, type 2) Code(s): E11.9 - Type 2 diabetes mellitus without complications Status: Deleted - Attending Attestation patient was seen and examined. Seen during dialysis. Agree with above assessment and plan. <Nazario Ahumada - Last Filed: 09/28/18 09:48>
--- NOTE | 2018-09-27 11:54 | P.PNIM ---
Subjective Interval history: Resuming care of Mrs. Clayton is who I took care of approximately 3 weeks ago. She states she is feeling fine, she seems cognitively intact. She is requesting water feels refreshed after a drink. Physical Exam Vital signs: Vital Signs 09/26/18 12:00 09/26/18 16:00 09/26/18 19:20 Temperature 99.0 F 98.9 F Pulse Rate 119 H 116 H Respiratory Rate 18 18 Blood Pressure 127/68 110/65 Pulse Oximetry 100 100 93 L 09/26/18 20:00 09/26/18 22:00 09/26/18 22:45 Temperature 98.4 F Pulse Rate 110 H 99 H Respiratory Rate 32 H 27 H Blood Pressure 68/50 L 95/57 L Pulse Oximetry 92 L 94 L 09/26/18 23:00 09/26/18 23:15 09/26/18 23:30 Temperature Pulse Rate 98 H 100 H 96 H Respiratory Rate 37 H 31 H 27 H Blood Pressure 112/62 129/70 118/63 Pulse Oximetry 94 L 96 93 L 09/27/18 00:00 09/27/18 00:30 09/27/18 01:00 Temperature 98.8 F Pulse Rate 96 H 97 H 92 H Respiratory Rate 32 H 32 H 20 Blood Pressure 127/71 139/74 117/65 Pulse Oximetry 94 L 95 93 L 09/27/18 01:30 09/27/18 02:00 09/27/18 02:30 Temperature Pulse Rate 96 H 91 H 90 Respiratory Rate 26 H 22 22 Blood Pressure 148/73 H 124/67 135/74 Pulse Oximetry 96 94 L 96 09/27/18 03:00 09/27/18 03:30 09/27/18 04:00 Temperature 97.8 F Pulse Rate 92 H 95 H 91 H Respiratory Rate 26 H 28 H 26 H Blood Pressure 150/82 H 167/84 H 162/76 H Pulse Oximetry 96 100 96 09/27/18 04:01 09/27/18 04:30 09/27/18 05:00 Temperature Pulse Rate 90 87 85 Respiratory Rate 21 18 19 Blood Pressure 162/76 H 150/79 H 131/72 Pulse Oximetry 97 96 95 09/27/18 05:30 09/27/18 06:00 09/27/18 06:30 Temperature Pulse Rate 88 84 88 Respiratory Rate 16 11 L 26 H Blood Pressure 150/75 H 124/68 152/80 H Pulse Oximetry 95 95 96 09/27/18 07:00 09/27/18 07:31 09/27/18 07:45 Temperature Pulse Rate 84 87 Respiratory Rate 19 36 H Blood Pressure 137/72 149/75 H Pulse Oximetry 95 100 92 L 09/27/18 08:00 09/27/18 08:30 09/27/18 08:45 Temperature 97.6 F Pulse Rate 86 85 85 Respiratory Rate 30 H 18 26 H Blood Pressure 150/76 H 133/70 127/71 Pulse Oximetry 92 L 91 L 92 L 09/27/18 09:00 09/27/18 09:15 Temperature Pulse Rate 87 84 Respiratory Rate 25 H 16 Blood Pressure 136/76 137/67 Pulse Oximetry 92 L 93 L Intake & Output 09/26/18 09/27/18 09/27/18 18:59 06:59 18:59 Intake Total 0 / 0 0 / 0 262.5 / 262.5 Output Total 0 / 0 0 / 0 2300 / 2300 Balance 0 / 0 0 / 0 -2037.5 / -2037.5 Weight 46 kg Intake: IV 262.5 / 262.5 Vancomycin Inj 1,250 MG In NS 262.5 / 262.5 Inj 250 ML @ 250 mls/hr IV.SIG WITH DIALYSIS [facility] Rx#:[id number] Oral 0 / 0 0 / 0 Output: Urine 0 / 0 0 / 0 Hemodialysis Amount 2300 / 2300 Other: Date of Last Bowel Movement 09/24/18 09/27/18 09/27/18 # Bowel Movements 0 1 Narrative: GENERAL: AAOx3, no acute distress, thin, frail SKIN: Warm and dry. No rashes HEAD: Atruamtic, normocephalic. EYES: No scleral icterus. No injection or drainage. ENT: Moist mucous membranes, patent nares, no erythema of oropharynx. NECK: Supple, trachea midline. No JVD or lymphadenopathy. Normal thyroid. CARDIOVASCULAR: Regular rate and rhythm. No murmurs, gallops, or rubs. RESPIRATORY: Scattered congestive sounds anteriorly. No accessory muscle use. GASTROINTESTINAL: Abdomen soft, non-tender, nondistended, normal active bowel sounds MUSCULOSKELETAL: No cyanosis, or edema. NEURO: CN II-XII grossly intact, no focal deficits, no slurring of speech Results - Labs CBC & Chem 7: 09/27/18 04:32 09/27/18 04:32 Laboratory Results - last 24 hr 09/26/18 09/26/18 09/27/18 12:08 17:42 00:01 WBC RBC Hgb Hct MCV MCH MCHC RDW Plt Count MPV Sodium Potassium Chloride Carbon Dioxide Anion Gap BUN Creatinine Estimated GFR POC Glucose 149 H 122 H 77 Random Glucose Calcium Phosphorus Magnesium Total Bilirubin AST ALT Alkaline Phosphatase Total Protein Albumin 09/27/18 09/27/18 09/27/18 04:32 04:32 05:22 WBC 14.5 H RBC 3.00 L Hgb 7.9 L Hct 25.2 L MCV 84.1 MCH 26.3 L MCHC 31.3 L RDW 18.1 H Plt Count 417 MPV 9.7 Sodium 140 Potassium 5.3 H D Chloride 98 Carbon Dioxide 29.5 Anion Gap 13 BUN 74 H Creatinine 5.40 H Estimated GFR 10 L POC Glucose 107 Random Glucose 111 H Calcium 9.6 Phosphorus 6.0 H D Magnesium 3.0 H Total Bilirubin 1.0 AST 89 H ALT 27 Alkaline Phosphatase 382 H Total Protein 8.3 H D Albumin 1.9 L 09/27/18 11:29 WBC RBC Hgb Hct MCV MCH MCHC RDW Plt Count MPV Sodium Potassium Chloride Carbon Dioxide Anion Gap BUN Creatinine Estimated GFR POC Glucose 97 Random Glucose Calcium Phosphorus Magnesium Total Bilirubin AST ALT Alkaline Phosphatase Total Protein Albumin Assessment and Plan - Plan 58-year-old female with end-stage renal disease, on dialysis, right renal mass, type 2 diabetes, CHF, endocarditis who presented with altered mental status following missed dialysis and time spent on floor wedged between her bed and a dresser drawer. She recovered slowly but after gaining some strength back had an episode of respiratory failure which caused intubation once again on 2017. Since then she has been continuing with dialysis and is now extubated and seemingly back to her baseline which is lying in bed alert and oriented x3 but too weak to make any significant gains to her movement. 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 EEG on 09/15 showed general slowing Patient had normal CT of the brain on admission MRSA sepsis Both blood cultures and wound culture returned positive for MRSA Infected pseudoaneurysm of AV graft removed Continuing renally dosed vancomycin, Zosyn discontinued by infectious disease Ischemic right foot, vascular surgery consulted by infectious disease Appreciate infectious disease consult Appreciate vascular surgery consult Sacral ulcer Consult wound care nurse for dressing recommendations AV fistula repair 09/09/18 Patient underwent repair of left AV fistula yesterday, pseudoaneurysm was infected Surgical dressing appears clean dry and intact New Vas-Cath placed on 09/21 by interventional radiology End-stage renal disease Patient missed 2 dialysis treatments, now seems caught up Continue Thursday schedule Patient underwent surgery 09/09/18 for revision of her AV graft Appreciate nephrology consult Hyperkalemia Intermittent elevations prior to dialysis treatments Follow with a.m. labs Pulmonary Edema Continue with dialysis for fluid management Duo nebs every 6 hours scheduled and as needed Encourage incentive spirometry Right renal mass Urology consulted for evaluation, likely malignant Recommendation is likely nephrectomy by Dr. Ramses Perera Outpatient follow-up recommended following discharge Appreciate urology consult Type 2 diabetes Accu-Cheks with sliding scale insulin coverage Diabetic diet h/o CAD/CHF LAD stent 06/08 Chronic systolic CHF, EF equals 30-35% in 2017, severe TR h/o PAD left BKA, iliofemoral bypass, right femoropopliteal bypass November 2017 Continue baby aspirin DVT Prophylaxis Heparin every 12 hours
[2018-09-27] MEDS: Famotidine 20 MG Tablet PO SCH ×2 (12:35→20:31)
[2018-09-27] MEDS: Senna/Docusate Sodium 8.6/50 MG Tablet PO SCH ×2 (12:36→20:31)
[2018-09-27] MEDS: Modafinil 200 MG Tablet PO SCH (12:37)
--- NOTE | 2018-09-27 14:45 | P.PNPAL ---
Reason for Visit Reason for visit: a. To assist with evaluation and management of symptoms including: pain, debility b. To assist medical decision maker(s) with: better understanding of current medical conditions; weighing benefits/burdens of medical treatment options; making medical treatment decisions. Subjective Subjective/Interval History: Palliative care follow-ups for assistance with pain and symptom management, family support and goals of care clarification. Patient seen in medical ICU, she was medically extubated on 09/26. Currently O2 via nasal cannula at 4L. Unlabored respirations noted. Patient alert to self place. Limited awareness as to situation. Verbal, able to communicate needs. Denies pain, shortness of breath, nausea/vomiting or abdominal discomfort. A febrile, stable hemodynamically. Speech therapy following, patient on mechanical soft diet with thin liquids. Underwent hemodialysis earlier today. Vascular surgery following for worsening ischemia to extremities secondary to severe PVD. Infectious disease following, MV vegetation, MRSA sepsis currently on vancomycin. Nephrology following, patient with end-stage renal disease hemodialysis dependent. Renal mass discovered in November 2017 which is suspicious of renal cancer, patient refused workup at that time. Patient with multiple comorbidities and overall poor prognosis for prolonged survival or improved quality of life. No family at bedside during my visit. Dual visit with palliative care social media marketing analyst Myriam Carballo. Patient with limited insight into her complicated clinical course and multiple ongoing medical issues. Alert and oriented times self place with limited awareness as to situation. She is aware that she is hospitalized but was unable to tell me rational. Reviewed with patient and the daughter Zaria has been assisting with medical decisions given her clinical condition, patient verbalized that this is acceptable. Patient answering "yes, ma'am" multiple times when asked about repeating previously discussed information. Unable at this time to participate in medical decision making. Case discussed with bedside RN. Palliative care to continue to follow-up. Advance Directives Living Will: Never completed Health Care Surrogate: Never completed Health Care Surrogate Name and Number: HCP daughter Marina Clark Objective Vital Signs: Vital Signs 09/26/18 16:00 09/26/18 19:20 09/26/18 20:00 Temperature 98.9 F 98.4 F Pulse Rate 116 H 110 H Respiratory Rate 18 32 H Blood Pressure 110/65 68/50 L Pulse Oximetry 100 93 L 92 L 09/26/18 22:00 09/26/18 22:45 09/26/18 23:00 Temperature Pulse Rate 99 H 98 H Respiratory Rate 27 H 37 H Blood Pressure 95/57 L 112/62 Pulse Oximetry 94 L 94 L 09/26/18 23:15 09/26/18 23:30 09/27/18 00:00 Temperature 98.8 F Pulse Rate 100 H 96 H 96 H Respiratory Rate 31 H 27 H 32 H Blood Pressure 129/70 118/63 127/71 Pulse Oximetry 96 93 L 94 L 09/27/18 00:30 09/27/18 01:00 09/27/18 01:30 Temperature Pulse Rate 97 H 92 H 96 H Respiratory Rate 32 H 20 26 H Blood Pressure 139/74 117/65 148/73 H Pulse Oximetry 95 93 L 96 09/27/18 02:00 09/27/18 02:30 09/27/18 03:00 Temperature Pulse Rate 91 H 90 92 H Respiratory Rate 22 22 26 H Blood Pressure 124/67 135/74 150/82 H Pulse Oximetry 94 L 96 96 09/27/18 03:30 09/27/18 04:00 09/27/18 04:01 Temperature 97.8 F Pulse Rate 95 H 91 H 90 Respiratory Rate 28 H 26 H 21 Blood Pressure 167/84 H 162/76 H 162/76 H Pulse Oximetry 100 96 97 09/27/18 04:30 09/27/18 05:00 09/27/18 05:30 Temperature Pulse Rate 87 85 88 Respiratory Rate 18 19 16 Blood Pressure 150/79 H 131/72 150/75 H Pulse Oximetry 96 95 95 09/27/18 06:00 09/27/18 06:30 09/27/18 07:00 Temperature Pulse Rate 84 88 84 Respiratory Rate 11 L 26 H 19 Blood Pressure 124/68 152/80 H 137/72 Pulse Oximetry 95 96 95 09/27/18 07:31 09/27/18 07:45 09/27/18 08:00 Temperature 97.6 F Pulse Rate 87 86 Respiratory Rate 36 H 30 H Blood Pressure 149/75 H 150/76 H Pulse Oximetry 100 92 L 92 L 09/27/18 08:30 09/27/18 08:45 09/27/18 09:00 Temperature Pulse Rate 85 85 87 Respiratory Rate 18 26 H 25 H Blood Pressure 133/70 127/71 136/76 Pulse Oximetry 91 L 92 L 92 L 09/27/18 09:15 09/27/18 09:30 09/27/18 09:45 Temperature Pulse Rate 84 83 86 Respiratory Rate 16 17 19 Blood Pressure 137/67 136/70 139/74 Pulse Oximetry 93 L 93 L 93 L 09/27/18 10:00 09/27/18 10:15 09/27/18 10:30 Temperature Pulse Rate 86 86 89 Respiratory Rate 18 20 20 Blood Pressure 129/71 129/68 144/76 H Pulse Oximetry 93 L 94 L 94 L 09/27/18 10:45 09/27/18 11:00 09/27/18 11:15 Temperature Pulse Rate 84 84 83 Respiratory Rate 14 17 16 Blood Pressure 123/67 118/59 L 121/64 Pulse Oximetry 93 L 93 L 94 L 09/27/18 11:30 09/27/18 11:45 09/27/18 12:00 Temperature 98.2 F Pulse Rate 85 84 83 Respiratory Rate 26 H 23 19 Blood Pressure 121/67 128/70 121/62 Pulse Oximetry 93 L 93 L 93 L Intake & Output 09/26/18 09/27/18 09/27/18 18:59 06:59 18:59 Intake Total 0 / 0 0 / 0 262.5 / 262.5 Output Total 0 / 0 0 / 0 2300 / 2300 Balance 0 / 0 0 / 0 -2037.5 / -2037.5 Weight 46 kg Intake: IV 262.5 / 262.5 Vancomycin Inj 1,250 MG In NS 262.5 / 262.5 Inj 250 ML @ 250 mls/hr IV.SIG WITH DIALYSIS [facility] Rx#:[id number] Oral 0 / 0 0 / 0 Output: Urine 0 / 0 0 / 0 Hemodialysis Amount 2300 / 2300 Other: Date of Last Bowel Movement 09/24/18 09/27/18 09/27/18 # Bowel Movements 0 1 Physical Exam: CONSTITUTIONAL/GENERAL: This is a AA female patient resting in bed in no acute distress. TUBES/LINES/DRAINS: PIV, Vas-Cath, hussein. SKIN: No jaundice, rashes, or lesions. Ecchymoses on upper extremities. Skin temperature appropriate. Not diaphoretic. HEAD: Atraumatic. Normocephalic. EYES: Pupils equal and round and reactive. Extraocular motions intact. No scleral icterus. No injection or drainage. Fundi not examined. ENT: Hearing grossly normal. Nose without bleeding or purulent drainage. NECK: Trachea midline. Supple, nontender. CARDIOVASCULAR: Regular rate and rhythm. Weak right pedal pulses. RESPIRATORY/CHEST: Rhonchi but sounds bilaterally. Unlabored, regular respirations. GASTROINTESTINAL: Abdomen soft, non-tender, nondistended. Bowel sounds present. GENITOURINARY: Without palpable bladder distension. Hussein catheter in place. MUSCULOSKELETAL: AVF in the left arm with palpable thrill. Status post left BKA. Right foot with toe amputations noted, dry gangrene. NEUROLOGICAL: Awake, alert to self and place. Limited awareness as to situation. Following simple commands. Verbal. PSYCHIATRIC: Calm. Flat affect. Diagnostic Tests Laboratory: Laboratory Results - last 72 hr 09/24/18 09/24/18 09/24/18 17:55 20:24 23:16 WBC RBC Hgb Hct MCV MCH MCHC RDW Plt Count MPV Puncture Site Patient Temperature O2 Saturation ABG pH ABG pCO2 ABG pO2 ABG HCO3 ABG O2 Content ABG Base Excess ABG Methemoglobin Hemoglobin Carboxyhemoglobin O2 Delivery Device Liter Flow Inspired O2 Critical Value Sodium Potassium Chloride Carbon Dioxide Anion Gap BUN Creatinine Estimated GFR POC Glucose 251 H 128 H 87 Random Glucose Calcium Phosphorus Magnesium Total Bilirubin AST ALT Alkaline Phosphatase Total Protein Albumin Prealbumin 09/25/18 09/25/18 09/25/18 05:13 12:05 13:10 WBC 11.3 H RBC 2.97 L Hgb 8.0 L Hct 25.0 L MCV 84.1 MCH 26.9 L MCHC 32.0 RDW 17.9 H Plt Count 304 MPV 9.6 Puncture Site Patient Temperature O2 Saturation ABG pH ABG pCO2 ABG pO2 ABG HCO3 ABG O2 Content ABG Base Excess ABG Methemoglobin Hemoglobin Carboxyhemoglobin O2 Delivery Device Liter Flow Inspired O2 Critical Value Sodium Potassium Chloride Carbon Dioxide Anion Gap BUN Creatinine Estimated GFR POC Glucose 206 H 191 H Random Glucose Calcium Phosphorus Magnesium Total Bilirubin AST ALT Alkaline Phosphatase Total Protein Albumin Prealbumin 09/25/18 09/25/18 09/25/18 13:10 16:20 17:25 WBC RBC Hgb Hct MCV MCH MCHC RDW Plt Count MPV Puncture Site Right brachial Patient Temperature 98.6 O2 Saturation 95 ABG pH 7.46 H ABG pCO2 47 H ABG pO2 101 ABG HCO3 33 H ABG O2 Content 10.5 L ABG Base Excess 9.0 H ABG Methemoglobin 1.6 Hemoglobin 7.8 L* Carboxyhemoglobin 1.5 O2 Delivery Device 28%trach piece Liter Flow 5.00 Inspired O2 28 Critical Value Yes Sodium 142 Potassium 3.8 Chloride 102 Carbon Dioxide 35.8 H Anion Gap 4 L BUN 42 H Creatinine 3.51 H Estimated GFR 16 L POC Glucose 170 H Random Glucose 176 H Calcium 9.1 Phosphorus 2.8 Magnesium 2.6 H Total Bilirubin AST ALT Alkaline Phosphatase Total Protein Albumin Prealbumin 8 L 09/26/18 09/26/18 09/26/18 01:48 EST 05:57 05:57 WBC 11.9 H RBC 3.14 L Hgb 8.4 L Hct 26.5 L MCV 84.4 MCH 26.8 L MCHC 31.8 L RDW 18.1 H Plt Count 375 MPV 10.1 Puncture Site Patient Temperature O2 Saturation ABG pH ABG pCO2 ABG pO2 ABG HCO3 ABG O2 Content ABG Base Excess ABG Methemoglobin Hemoglobin Carboxyhemoglobin O2 Delivery Device Liter Flow Inspired O2 Critical Value Sodium 139 Potassium 4.3 Chloride 97 L Carbon Dioxide 33.2 H Anion Gap 9 BUN 54 H Creatinine 4.24 H Estimated GFR 13 L POC Glucose 157 H Random Glucose 157 H Calcium 9.6 Phosphorus 3.7 Magnesium 2.7 H Total Bilirubin 0.8 AST 35 ALT 18 Alkaline Phosphatase 355 H Total Protein 7.7 Albumin 1.8 L Prealbumin 09/26/18 09/26/18 09/26/18 06:12 12:08 17:42 WBC RBC Hgb Hct MCV MCH MCHC RDW Plt Count MPV Puncture Site Patient Temperature O2 Saturation ABG pH ABG pCO2 ABG pO2 ABG HCO3 ABG O2 Content ABG Base Excess ABG Methemoglobin Hemoglobin Carboxyhemoglobin O2 Delivery Device Liter Flow Inspired O2 Critical Value Sodium Potassium Chloride Carbon Dioxide Anion Gap BUN Creatinine Estimated GFR POC Glucose 168 H 149 H 122 H Random Glucose Calcium Phosphorus Magnesium Total Bilirubin AST ALT Alkaline Phosphatase Total Protein Albumin Prealbumin 09/27/18 09/27/18 09/27/18 00:01 04:32 04:32 WBC 14.5 H RBC 3.00 L Hgb 7.9 L Hct 25.2 L MCV 84.1 MCH 26.3 L MCHC 31.3 L RDW 18.1 H Plt Count 417 MPV 9.7 Puncture Site Patient Temperature O2 Saturation ABG pH ABG pCO2 ABG pO2 ABG HCO3 ABG O2 Content ABG Base Excess ABG Methemoglobin Hemoglobin Carboxyhemoglobin O2 Delivery Device Liter Flow Inspired O2 Critical Value Sodium 140 Potassium 5.3 H D Chloride 98 Carbon Dioxide 29.5 Anion Gap 13 BUN 74 H Creatinine 5.40 H Estimated GFR 10 L POC Glucose 77 Random Glucose 111 H Calcium 9.6 Phosphorus 6.0 H D Magnesium 3.0 H Total Bilirubin 1.0 AST 89 H ALT 27 Alkaline Phosphatase 382 H Total Protein 8.3 H D Albumin 1.9 L Prealbumin 09/27/18 09/27/18 05:22 11:29 WBC RBC Hgb Hct MCV MCH MCHC RDW Plt Count MPV Puncture Site Patient Temperature O2 Saturation ABG pH ABG pCO2 ABG pO2 ABG HCO3 ABG O2 Content ABG Base Excess ABG Methemoglobin Hemoglobin Carboxyhemoglobin O2 Delivery Device Liter Flow Inspired O2 Critical Value Sodium Potassium Chloride Carbon Dioxide Anion Gap BUN Creatinine Estimated GFR POC Glucose 107 97 Random Glucose Calcium Phosphorus Magnesium Total Bilirubin AST ALT Alkaline Phosphatase Total Protein Albumin Prealbumin Result Diagrams: 09/27/18 04:32 09/27/18 04:32 Procedures: 09/09/2018: To OR for pseudoaneurysm removal with AVF revision 09/09/2018: Right IJ dialysis catheter placed 09/13/2018: Endotracheal intubation 09/13/2018: Left groin arterial line 09/13/2018: Right groin central line 09/15/2018: Right groin central line discontinued 09/21/2018: Vas-Cath placement 09/26/2018: Medical extubation Assessment and Plan - Disease Oriented Problem List (1) Metabolic encephalopathy (2) Severe sepsis (3) Hyperkalemia (4) ESRD (end stage renal disease) (5) CAD (coronary artery disease) (6) PAD (peripheral artery disease) (7) Diabetes (8) Hypertension (9) Ischemic cardiomyopathy - Symptom Scale (1) Pain 0-10 Scale: 0 Pertinent Non-Medical Issues: Psychosocial: is incapacitated secondary to dementia and [facility] at a prison. She has 2 children, daughter Marina and son Malou. Son unable to be located. Spiritual: No christianity affiliation. Legal: No advance directives completed. Ethical issues impacting care: No ethical issues identified. 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 Patient admitted secondary to sepsis and respiratory failure requiring intubation and mechanical ventilation. Patient with multiple comorbidities and overall poor prognosis for prolonged survival or improved quality of life. She remains at a very high risk for further complications, continued decline and . Code Status: Alternative Code Plan: * CODE STATUS: Cardiac code only. Do NOT reintubate. * HEALTHCARE DECISION-MAKING: Patient unable to participate at this time in medical decision making secondary to clinical condition. She does not appear to retain medical decision-making capacity at this time. Unclear at this time if she will regain medical decision-making capacity. No advance directives completed as per family. Patient ; however, incapacitated secondary to dementia and currently living in a prison. Patient has 2 adult children. Daughter Marina and son Malou. Family reports that son has been estranged from family for many years and they do not know his whereabouts. Daughter Marina participating in medical decision making as healthcare proxy. * GOALS OF CARE: Daughter Marina acting as HCP electing alternative code - cardiac only/do NOT reintubate if patient is able to medically extubate. Daughter verbalized NOT wishing for patient to undergo any additional surgical interventions such as tracheostomy or leg amputation/revision of previous amputation. Patient unable to participating medical decision making as of 09/27 , does not appear to retain medical decision-making capacity at this time. Patient with limited insight into her complicated clinical course and multiple ongoing medical issues. Palliative care to continue to follow-up. * SYMPTOMS: Pain: Multifactorial. Possible contributing factors include infection, impaired skin integrity, impaired circulation, recent invasive procedures, invasive lines etc. [place] 5/325 and IV morphine 2 mg available as needed. NO PRN opioids given in the past 24hrs. Palliative care recommends discontinuing morphine in the setting of end-stage renal disease given high risk for neurotoxicity. Recommending hydromorphone 0.25mg IV for moderate pain / 0.5mg for severe pain IV q4hrs PRN. * Palliative care will continue to follow this patient throughout her hospitalization to establish trust, assist with symptom management and clarification of medical treatment goals. Time Spent Total Floor Time (mins): 32 (Total time to include review and summarization of medical records, physical exam, goals of care conversation with patient/family, case discussion with bedside RN.) >50% Time in Counseling or Coordination of Care: Yes (Total visit time = 32 minutes; > 50% spent counseling/coordinating care) Attestation Attestation: To help prompt me to consider important information that might be impacting today's encounter and assessment, information from prior notes written by myself or my colleagues may have been "brought forward" into today's note. My signature on this note, however, is an attestation that I personally performed the exam, history, and/or decision-making noted today, and, unless otherwise indicated, the interactions with patient, family, and staff as well as the review of records all occurred today. I also attest that the listed assessment and stated plan reflect my best clinical judgment today based on the combination of historical information, prior notes, and today's exam/ interactions. When time spent is documented, it refers only to time spent today by the signer, or if indicated, combined time spent today by collaborating physician/nurse practitioner.
--- NOTE | 2018-09-27 20:00 | P.PNADD ---
Addendum to Inpatient Note Additional information: seen around 1900 full note to follow
[2018-09-28] MEDS: Insulin NovoLIN Regular Correctional Sugar Inj SQ SCH ×4 (00:43→18:13)
[2018-09-28] MEDS: Heparin - SQ 10,000 UNITS/ML Vial SQ SCH ×2 (05:37→18:12)
[2018-09-28] MEDS: Modafinil 200 MG Tablet PO SCH (07:59)
[2018-09-28] MEDS: Famotidine 20 MG Tablet PO SCH ×2 (08:00→20:40)
[2018-09-28] MEDS: Artificial Tears Opth Drops 15 ML Bottle EACH EYE SCH ×2 (08:00→20:41)
[2018-09-28] MEDS: Senna/Docusate Sodium 8.6/50 MG Tablet PO SCH ×2 (08:02→20:40)
--- NOTE | 2018-09-28 09:11 | P.PNNP ---
Subjective Interval history: Patient was seen resting in bed. Patient stated she felt nauseous. <Marshal Chávez - Last Filed: 09/28/18 09:03> Physical Exam Vital signs: Vital Signs 09/27/18 09:15 09/27/18 09:30 09/27/18 09:45 Temperature Pulse Rate 84 83 86 Respiratory Rate 16 17 19 Blood Pressure 137/67 136/70 139/74 Pulse Oximetry 93 L 93 L 93 L 09/27/18 10:00 09/27/18 10:15 09/27/18 10:30 Temperature Pulse Rate 86 86 89 Respiratory Rate 18 20 20 Blood Pressure 129/71 129/68 144/76 H Pulse Oximetry 93 L 94 L 94 L 09/27/18 10:45 09/27/18 11:00 09/27/18 11:15 Temperature Pulse Rate 84 84 83 Respiratory Rate 14 17 16 Blood Pressure 123/67 118/59 L 121/64 Pulse Oximetry 93 L 93 L 94 L 09/27/18 11:30 09/27/18 11:45 09/27/18 12:00 Temperature 98.2 F Pulse Rate 85 84 83 Respiratory Rate 26 H 23 19 Blood Pressure 121/67 128/70 121/62 Pulse Oximetry 93 L 93 L 93 L 09/27/18 13:00 09/27/18 14:00 09/27/18 15:00 Temperature Pulse Rate 83 85 85 Respiratory Rate 18 18 6 L Blood Pressure 118/64 114/59 L 119/63 Pulse Oximetry 92 L 92 L 93 L 09/27/18 16:00 09/27/18 17:00 09/27/18 18:00 Temperature 99.8 F H Pulse Rate 89 89 90 Respiratory Rate 19 20 Blood Pressure 130/68 138/70 Pulse Oximetry 96 95 09/27/18 19:52 09/27/18 20:00 09/27/18 22:00 Temperature 99.0 F Pulse Rate 90 91 H Respiratory Rate 22 Blood Pressure 122/61 Pulse Oximetry 100 99 09/27/18 23:46 09/28/18 00:00 09/28/18 02:00 Temperature 98.9 F Pulse Rate 87 89 Respiratory Rate 26 H Blood Pressure 109/59 L Pulse Oximetry 94 L 100 09/28/18 04:00 09/28/18 06:00 09/28/18 07:00 Temperature 98.2 F Pulse Rate 92 H 89 Respiratory Rate 25 H Blood Pressure 134/70 Pulse Oximetry 99 100 Intake & Output 09/27/18 09/28/18 09/28/18 18:59 06:59 18:59 Intake Total 262.5 / 262.5 120 / 120 Output Total 4650 / 4650 0 / 0 Balance -4387.5 / -4387.5 120 / 120 Weight 42.5 kg Intake: IV 262.5 / 262.5 Vancomycin Inj 1,250 MG In NS 262.5 / 262.5 Inj 250 ML @ 250 mls/hr IV.SIG WITH [facility]IS [facility] Rx#:[id number] Oral 0 / 0 120 / 120 Tube Feeding 0 / 0 Tube Irrigant 0 / 0 Water Bolus Amount 0 / 0 Output: Urine 0 / 0 0 / 0 Stool 0 / 0 Urine/Stool Mix 0 / 0 Hemodialysis Amount 4600 / 4600 Estimated Blood Loss 50 / 50 Other: Post Void Residual 0 # Voids 0 # Incontinent Voids 0 # Urine Diapers 0 Date of Last Bowel Movement 09/27/18 09/28/18 09/28/18 # Bowel Movements 3 1 # Incontinent Bowel Movements 1 - Constitutional no acute distress - Routine HEENT Exam Head: Present: normocephalic Eye: Present: EOMI ENT: Present: mucous membranes moist - Routine Neck Exam Present: trachea midline - Routine Respiratory Exam Absent: accessory muscle use - Routine Cardiovascular Exam Present: RRR - Routine Abdominal Exam Present: soft, normoactive bowel sounds - Routine Extremities Exam Present: extremity cold to touch, amputation. Absent: pulses intact, palpable cord Comments: Patient has left BKA. Patient's right distal extremity cold to touch. Patient has several toe amputations on right foot. - Routine Neurological Exam Present: alert - Detailed Neurological Exam: Coma Scale Eye Opening: Spontaneous <Marshal Chávez - Last Filed: 09/28/18 09:03> Vital signs: Vital Signs 09/27/18 10:15 09/27/18 10:30 09/27/18 10:45 Temperature Pulse Rate 86 89 84 Respiratory Rate 20 20 14 Blood Pressure 129/68 144/76 H 123/67 Pulse Oximetry 94 L 94 L 93 L 09/27/18 11:00 09/27/18 11:15 09/27/18 11:30 Temperature Pulse Rate 84 83 85 Respiratory Rate 17 16 26 H Blood Pressure 118/59 L 121/64 121/67 Pulse Oximetry 93 L 94 L 93 L 09/27/18 11:45 09/27/18 12:00 09/27/18 13:00 Temperature 98.2 F Pulse Rate 84 83 83 Respiratory Rate 23 19 18 Blood Pressure 128/70 121/62 118/64 Pulse Oximetry 93 L 93 L 92 L 09/27/18 14:00 09/27/18 15:00 09/27/18 16:00 Temperature 99.8 F H Pulse Rate 85 85 89 Respiratory Rate 18 6 L 19 Blood Pressure 114/59 L 119/63 130/68 Pulse Oximetry 92 L 93 L 96 09/27/18 17:00 09/27/18 18:00 09/27/18 19:00 Temperature Pulse Rate 89 90 87 Respiratory Rate 20 29 H 18 Blood Pressure 138/70 134/74 123/64 Pulse Oximetry 95 96 100 09/27/18 19:52 09/27/18 20:00 09/27/18 21:00 Temperature 99.0 F Pulse Rate 90 91 H Respiratory Rate 22 23 Blood Pressure 122/61 120/65 Pulse Oximetry 100 99 96 09/27/18 22:00 09/27/18 23:00 09/27/18 23:05 Temperature Pulse Rate 91 H 91 H 92 H Respiratory Rate 24 33 H 13 Blood Pressure 123/68 113/67 Pulse Oximetry 84 L 09/27/18 23:46 09/28/18 00:00 09/28/18 01:00 Temperature 98.9 F Pulse Rate 87 88 Respiratory Rate 26 H 27 H Blood Pressure 109/59 L 93/52 L Pulse Oximetry 94 L 100 100 09/28/18 02:00 09/28/18 03:00 09/28/18 04:00 Temperature 98.2 F Pulse Rate 89 89 92 H Respiratory Rate 26 H 22 25 H Blood Pressure 117/68 124/68 134/70 Pulse Oximetry 98 100 99 09/28/18 05:00 09/28/18 06:00 09/28/18 07:00 Temperature Pulse Rate 88 89 90 Respiratory Rate 17 18 26 H Blood Pressure 135/65 131/65 125/67 Pulse Oximetry 100 100 100 09/28/18 08:00 09/28/18 09:00 Temperature 99.1 F Pulse Rate 90 87 Respiratory Rate 23 28 H Blood Pressure 117/63 116/62 Pulse Oximetry 96 95 Intake & Output 09/27/18 09/28/18 09/28/18 18:59 06:59 18:59 Intake Total 262.5 / 262.5 120 / 120 Output Total 4650 / 4650 0 / 0 Balance -4387.5 / -4387.5 120 / 120 Weight 42.5 kg Intake: IV 262.5 / 262.5 Vancomycin Inj 1,250 MG In NS 262.5 / 262.5 Inj 250 ML @ 250 mls/hr IV.SIG WITH DIALYSIS [facility] Rx#:[id number] Oral 0 / 0 120 / 120 Tube Feeding 0 / 0 Tube Irrigant 0 / 0 Water Bolus Amount 0 / 0 Output: Urine 0 / 0 0 / 0 Stool 0 / 0 Urine/Stool Mix 0 / 0 Hemodialysis Amount 4600 / 4600 Estimated Blood Loss 50 / 50 Other: Post Void Residual 0 # Voids 0 # Incontinent Voids 0 # Urine Diapers 0 Date of Last Bowel Movement 09/27/18 09/28/18 09/28/18 # Bowel Movements 3 1 # Incontinent Bowel Movements 1 <Nazario Ahumada - Last Filed: 09/28/18 10:03> Assessment and Plan - Assessment (1) ESRD (end stage renal disease) Code(s): N18.6 - End stage renal disease Status: Deleted Plan: Dialysis MWF. Patient was dialyzed yesterday, 2300 mL fluid removed in UF. Patient's Hgb 7.9, 14,000 units of Epogen ordered, to be given with dialysis. She is s/p repair/excision of infected pseudoaneurysm of AVF. (2) Hyperkalemia Code(s): E87.5 - Hyperkalemia Status: Deleted Plan: K was 5.3 yesterday. Should have improved with dialysis. Labs to be done today. . (3) Renal mass Code(s): N28.89 - Other specified disorders of kidney and ureter Status: Acute Plan: Renal mass has grown in size, most likely malignancy. Urology note reviewed, to follow up after discharge. Previously the patient had refused workup. (4) Severe sepsis Code(s): A41.9 - Sepsis, unspecified organism; R65.20 - Severe sepsis without septic shock Status: Deleted Plan: MRSA sepsis, endocarditis. MRI of the brain negative for septic emboli. She has mitral valve vegetation. On Vancomycin. s/p excision of infected pseudoaneurysm of AVF. (5) CAD (coronary artery disease) Code(s): I25.10 - Atherosclerotic heart disease of ambler coronary artery without angina pectoris Status: Deleted (6) PAD (peripheral artery disease) Code(s): I73.9 - Peripheral vascular disease, unspecified Status: Deleted Plan: s/p left BKA. Poor circulation of right lower extremity. Vascular surgery following. Not a candidate for revascularization. (7) DM2 (diabetes mellitus, type 2) Code(s): E11.9 - Type 2 diabetes mellitus without complications Status: Deleted Plan: maintain blood glucose between 140 and 180 while hospitalized. <Marshal Chávez - Last Filed: 09/28/18 09:03> - Assessment (1) ESRD (end stage renal disease) Code(s): N18.6 - End stage renal disease Status: Deleted (2) Hyperkalemia Code(s): E87.5 - Hyperkalemia Status: Deleted (3) Renal mass Code(s): N28.89 - Other specified disorders of kidney and ureter Status: Acute (4) Severe sepsis Code(s): A41.9 - Sepsis, unspecified organism; R65.20 - Severe sepsis without septic shock Status: Deleted (5) CAD (coronary artery disease) Code(s): I25.10 - Atherosclerotic heart disease of ambler coronary artery without angina pectoris Status: Deleted (6) PAD (peripheral artery disease) Code(s): I73.9 - Peripheral vascular disease, unspecified Status: Deleted (7) DM2 (diabetes mellitus, type 2) Code(s): E11.9 - Type 2 diabetes mellitus without complications Status: Deleted - Attending Attestation patient was seen and examined. Agree with above assessment and plan. 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 <Nazario Ahumada - Last Filed: 09/28/18 10:03>
--- NOTE | 2018-09-28 12:52 | P.PNWCN ---
Wound Care Nurse Consult Description: Received wound management consult for sacrum Communicated with: RN Meche, Doctor Salome Recommendation: 1.Please consult plastics for possible debridement of sacral pressure injury 2.Please cleanse wound with normal saline and pat dry. Apply Santyl ointment fozia thickness to wound bed and cover with Dakins 0.125% moistened fluffed gauze,just over wound bed, avoiding surrounding intact skin. Cover with bordered gauze dressing and change daily. 3. please turn patient every 2 hours from L side to R side, limiting time spent on back for P.T. and meals. 4. Please place patient on airapy low airloss bed or K4 from [employer]. 5.Please float R heel off mattress Wound/Pressure Injury - Wound Sacrum Wound Staging: Stage IV Wound Type: Pressure Injury Is This a Chronic Wound: No Requested from Provider a Wound Care Consult: Yes (Wound care inpatient has seen patient today) Length (cm): 9 Width (cm): 11.5 Depth (cm): 1.8 Wound Bed Appearance: Necrotic, Red, White, Yellow Wound Bed Appearance: Wound bed presents with ~10% exposed bone, ~60% loose moist eschar,~40% loosely adherent yellow slough Surrounding Tissue Temperature: Cool Drainage Description: Serosanguinous Drainage Amount: Minimal Drainage Odor: Slight Odor Dressing Status: Changed Cleansing Solution: Saline Wound Packing Type: Gauze Pads Cover Dressing: borderd gauze Wound Dressing Change Date: 09/28/18 Wound Margin Description: Wound margins are well defined - Additional Information Patient seen on [facility] for evaluation of wound management to sacrum. Patient has a cachetic appearance, and is complaining of pain with movement. Patient was turned gently with the assistance of investigative writer, and student nurse to reveal bordered gauze dressing in place over sacral area. Dressing was removed gently to reveal large open wound over sacral area wound measurements and description are noted above. Wound does have a pressure etiology and is noted with exposed bone, indicating stage IV pressure injury. Wound is also noted covered with loosely adherent necrotic tissue. Cleansed wound to sacral area with normal saline and patted dry. Applied saline moistened gauze packed loosely to wound bed covering only tissue in wound bed avoiding surrounding intact skin. Skin barrier film was then applied to periwound before covering wound with 2 bordered gauze dressings placed in staggered fashion to cover entire wound bed. Patient tolerated wound assessment and dressing application well. Patient has another wound to the end of L BKA stump and also has necrotic R foot with dry partial thickness wounds noted to R lower leg.Wound to L BKA stump has bordered gauze in place, and R foot and R lower leg is dry and open to air.
[2018-09-28 13:39] LABS: Calcium 9.1 mg/dL (8.5-10.1); Carbon Dioxide 29.1 meq/L (21.0-32.0); Phosphorus 5.2 mg/dL (2.5-4.9); Potassium 4.2 meq/L (3.5-5.1)
--- NOTE | 2018-09-28 14:21 | P.PNID ---
Subjective Remarks: off vent, afebrile 2 D echo with MV vegetation afebrile Antibiotics: vancomycin Allergies/Adverse Reactions: Allergies latex Allergy (Severe, Unverified 09/06/18 11:19) Edema RASH Objective Vital Signs 09/27/18 14:00 09/27/18 15:00 09/27/18 16:00 Temperature 99.8 F H Pulse Rate 85 85 89 Respiratory Rate 18 6 L 19 Blood Pressure 114/59 L 119/63 130/68 Pulse Oximetry 92 L 93 L 96 09/27/18 17:00 09/27/18 18:00 09/27/18 19:00 Temperature Pulse Rate 89 90 87 Respiratory Rate 20 29 H 18 Blood Pressure 138/70 134/74 123/64 Pulse Oximetry 95 96 100 09/27/18 19:52 09/27/18 20:00 09/27/18 21:00 Temperature 99.0 F Pulse Rate 90 91 H Respiratory Rate 22 23 Blood Pressure 122/61 120/65 Pulse Oximetry 100 99 96 09/27/18 22:00 09/27/18 23:00 09/27/18 23:05 Temperature Pulse Rate 91 H 91 H 92 H Respiratory Rate 24 33 H 13 Blood Pressure 123/68 113/67 Pulse Oximetry 84 L 09/27/18 23:46 09/28/18 00:00 09/28/18 01:00 Temperature 98.9 F Pulse Rate 87 88 Respiratory Rate 26 H 27 H Blood Pressure 109/59 L 93/52 L Pulse Oximetry 94 L 100 100 09/28/18 02:00 09/28/18 03:00 09/28/18 04:00 Temperature 98.2 F Pulse Rate 89 89 92 H Respiratory Rate 26 H 22 25 H Blood Pressure 117/68 124/68 134/70 Pulse Oximetry 98 100 99 09/28/18 05:00 09/28/18 06:00 09/28/18 07:00 Temperature Pulse Rate 88 89 90 Respiratory Rate 17 18 26 H Blood Pressure 135/65 131/65 125/67 Pulse Oximetry 100 100 100 09/28/18 08:00 09/28/18 09:00 09/28/18 10:00 Temperature 99.1 F Pulse Rate 90 87 87 Respiratory Rate 23 28 H 23 Blood Pressure 117/63 116/62 114/63 Pulse Oximetry 96 95 91 L 09/28/18 11:00 09/28/18 12:00 09/28/18 12:03 Temperature 98.3 F Pulse Rate 87 90 Respiratory Rate 23 24 Blood Pressure 149/71 H 138/69 Pulse Oximetry 98 96 96 Intake & Output 09/27/18 09/28/18 09/28/18 18:59 06:59 18:59 Intake Total 262.5 / 262.5 120 / 120 Output Total 4650 / 4650 0 / 0 Balance -4387.5 / -4387.5 120 / 120 Weight 42.5 kg Intake: IV 262.5 / 262.5 Vancomycin Inj 1,250 MG In NS 262.5 / 262.5 Inj 250 ML @ 250 mls/hr IV.SIG WITH DIALYSIS [facility] Rx#:[id number] Oral 0 / 0 120 / 120 Tube Feeding 0 / 0 Tube Irrigant 0 / 0 Water Bolus Amount 0 / 0 Output: Urine 0 / 0 0 / 0 Stool 0 / 0 Urine/Stool Mix 0 / 0 Hemodialysis Amount 4600 / 4600 Estimated Blood Loss 50 / 50 Other: Post Void Residual 0 # Voids 0 # Incontinent Voids 0 # Urine Diapers 0 Date of Last Bowel Movement 09/27/18 09/28/18 09/28/18 # Bowel Movements 3 1 # Incontinent Bowel Movements 1 Lab - Hematology Results 09/27/18 04:32 WBC 14.5 H RBC 3.00 L Hgb 7.9 L Hct 25.2 L MCV 84.1 MCH 26.3 L MCHC 31.3 L RDW 18.1 H Plt Count 417 MPV 9.7 Lab - Chemistry Results 09/26/18 09/27/18 09/27/18 17:42 00:01 04:32 Sodium 140 Potassium 5.3 H D Chloride 98 Carbon Dioxide 29.5 Anion Gap 13 BUN 74 H Creatinine 5.40 H Estimated GFR 10 L POC Glucose 122 H 77 Random Glucose 111 H Calcium 9.6 Phosphorus 6.0 H D Magnesium 3.0 H Total Bilirubin 1.0 AST 89 H ALT 27 Alkaline Phosphatase 382 H Total Protein 8.3 H D Albumin 1.9 L 09/27/18 09/27/18 09/27/18 05:22 11:29 17:32 Sodium Potassium Chloride Carbon Dioxide Anion Gap BUN Creatinine Estimated GFR POC Glucose 107 97 157 H Random Glucose Calcium Phosphorus Magnesium Total Bilirubin AST ALT Alkaline Phosphatase Total Protein Albumin 11/04/0909/28/18 09/28/18 23:59 05:20 11:38 Sodium Potassium Chloride Carbon Dioxide Anion Gap BUN Creatinine Estimated GFR POC Glucose 140 H 173 H 126 H Random Glucose Calcium Phosphorus Magnesium Total Bilirubin AST ALT Alkaline Phosphatase Total Protein Albumin 09/28/18 12:20 Sodium 141 Potassium 4.2 D Chloride 99 Carbon Dioxide 29.1 Anion Gap 13 BUN 49 H Creatinine 4.05 H Estimated GFR 14 L POC Glucose Random Glucose 128 H Calcium 9.1 Phosphorus 5.2 H Magnesium Total Bilirubin AST ALT Alkaline Phosphatase Total Protein Albumin Imaging: ITS Impressions Abdomen/Pelvis CT 09/06/18 11:10 CONCLUSION: 1. Moderate stool in the rectum. No dilated loops of bowel to suggest obstruction. 2. Persistent large solid mass arising from the superior pole the right kidney measuring up to 6.2 cm. This is a renal cell carcinoma until proven otherwise. 3. End-stage appearing kidneys bilaterally. 4. Prominent diffuse vascular calcifications. Upper Extremity Ultrasound 09/09/18 00:00 CONCLUSION: Mixed echogenicity collection around the proximal fistula outflow in the medial left upper arm. Arterial Ultrasound 09/10/18 00:00 CONCLUSION: 1. Right iliofemoral and femoral popliteal bypass grafts appear to be occluded. 2. Occlusion of the eagle superficial femoral and popliteal arteries. Proximal trifurcation vessels also appear to be occluded. 3. Monophasic signal in the right external iliac, common femoral and profunda femoral arteries. 4. CTA abdomen and runoff could be performed for anatomic characterization if clinically warranted. Extremity Arterial Study 09/10/18 00:00 CONCLUSION: 1. Findings discerning for significant right lower extremity ischemia and likely occlusion of the right femoral to popliteal bypass graft with nearly flat waveforms and unobtainable pressures. 2. Status post left BKA. Tibia/Fibula X-Ray 09/13/18 00:00 CONCLUSION: 1. Status post below the knee amputation. 2. No evidence to suggest osteomyelitis. 3. Possible soft tissue erosion at the base of the amputation. Head CT 09/13/18 06:22 CONCLUSION: 1. No acute intracranial abnormality. 2. Progressive right maxillary sinus mucosal disease. . Head MRI 09/14/18 00:00 CONCLUSION: Chronic small vessel ischemic and atrophic changes. Catheter Placement 09/21/18 00:00 CONCLUSION: 1. Uncomplicated line placement as above. 2. Please note patient's right internal jugular vein is occluded. Chest X-Ray 09/21/18 06:00 CONCLUSION: No significant change. Mild diffuse airspace opacities persist. Physical Exam: GENERAL: NAD lethargic, arousable SKIN: Warm and dry. HEAD: Atraumatic. Normocephalic. EYES: PERRL ENT: No nasal bleeding or discharge. Mucous membranes pink and moist. NECK: Trachea midline. No JVD. CARDIOVASCULAR: Regular rate and rhythm. + murmur 3/6 systolic RESPIRATORY: No accessory muscle use. Clear to auscultation. Breath sounds equal bilaterally. GASTROINTESTINAL: Abdomen soft, non-tender, nondistended. Hepatic and splenic margins not palpable. MUSCULOSKELETAL: Extremities without clubbing, cyanosis, or edema. L BKA: opening in the middle of incision, draining white pus R foot, not refilling, pulseless with ongoing evolving dry gangrene L BKA with small purulent draiange on the dressing L UE incision dry, clean, well approximated elbow ulceration with full thickness skin loss noted, necrotic wound bed + edema + wet eschar 3rd finger ischemic on L hand remote amputation R ring finger - well healed NEUROLOGICAL: pt is lehtargic, easily arousable ; responsive to verbal stimuli , moving extremeties to command PSYCHIATRIC: calm Assessment and Plan - Plan New issue: sp code ? stroke MRSA sepsis: souce MV endocarditis and infected LUE AV fistula last cl negative MV endocartditis AMS no septic emboli HD, non comliance came with electrolytes imbalance Ischemic R foot with mumification of some toes - vasc surgery ff Severe PVD critical iscejmia . Gangrene Non healing L BKA site. Needs revision XR neg for osteo pt likely need b/l AKAs Failed RLE ileofemoral and fem pop bypass in Feb 2018 Infected pseudoaneurism of R UE AVF - sp repair, I+D - steal syndrome, ischemic fingers - new Renal mass, prob malignancy . Persistent large solid mass arising from the superior pole the right kidney measuring up to 6.2 cm. cont vancomycin w HD keep trough levels 15-20; trough remains low Anticipate 6-8 weeks of tx with vancomycin (from 09/11) will reimage [facility]
--- NOTE | 2018-09-28 14:58 | P.DIET ---
Nutritional Evaluation Type of nutrition evaluation: follow-up Nutrition consult regarding: Tube Feeding Nutrition screening: [facility] (malnutrition) Objective - Diagnosis hyperkalemia, fluid overload - Objective Part of Body Amputated: Left below knee (6%) (Adjusted IBW for LBKA = 94-lb( 42.7kg)) % IBW: 119 Body Weight Used for Calculations: Actual (51kg) Energy Needs - Lower Range (kCal/kg): 30 Energy Needs - Upper Range (kCal/kg): 35 Lower Limit kCal/kg (kCals): 1,530 Upper Limit kCal/kg (kCals): 1,785 Lower Limit Protein Factor (Grams per Kg): 1.2 Upper Limit Protein Factor (Grams per Kg): 1.5 Lower Protein Needs (Protein): 61 Upper Protein Needs (Protein): 77 Dietitian Reviewed in Medical Record: Curent medications, Intake & Output, Labs , Medical history, Tube feeding Diet Order: renal + DM diet, pureed Oral Diet Intake Amount: Poor <50% Wound Care Note: sacrum stage 4 pressure injury Objective Comments: PMH includes: A-V Fistula, ESRD on HD --, DM, CHF EF 30-35, Gangrene, MDRO, CAD s/p LAD stent 06/08, LBKA Labs Include: BUN 49, Creatinine 4.05 POC glucose 126 LBM: 09/28/18 Assessment Assessment: MDC received on 09/28 for wound. Pts TF had d/trini on 09/27, pt currently consuming 25-50% of her meals. RD to recommend Carlos BID to aid in wound healing. RD also recommends adding Glucerna BID as a PO supplement d/t poor intake. Wound care and ST recs noted. Monitor renal labs. Labs reviewed, dietitian following. Recommendations: 1. Continue renal and DM pureed diet per ST 2. RD to recommend Carlos BID to aid in wound healing 3. RD also recommends adding Glucerna BID as a PO supplement d/t poor intake 4. Monitor renal labs 5. Dietitian following Dietitian to Monitor: Lab values, Renal labs, Glucose level, Supplement acceptance, Intake & Output, Diet tolerance, Weight change, PO Intake, Medical course
--- NOTE | 2018-09-28 15:19 | US ---
EXAM DATE: 09/28/2018 3:10 PM EST AGE/SEX: 58 years / Female INDICATIONS: Left swelling CLINICAL DATA: This is the patient's subsequent encounter. Patient reports that signs and symptoms h ave been present for 4 - 6 days and indicates a pain score of 0/10. MEDICAL/SURGICAL HISTORY: Diabetes. Hepatitis C. A-V fistula. Gangrene. Rheumatoid arthritis. section. Hysterectomy. COMPARISON: No prior exams available for comparison. FINDINGS: There is diffuse subcutaneous edema. Patent graft is identified. CONCLUSION: 1. Nondescript soft tissue swelling/edema. Electronically signed by: Hoda Hdez MD 09/28/2018 3:18 PM EST
--- NOTE | 2018-09-28 16:11 | P.PNPAL ---
Reason for Visit Reason for visit: a. To assist with evaluation and management of symptoms including: pain, debility b. To assist medical decision maker(s) with: better understanding of current medical conditions; weighing benefits/burdens of medical treatment options; making medical treatment decisions. Subjective Subjective/Interval History: Palliative care follow-ups for assistance with pain and symptom management, family support and goals of care clarification. Patient seen in medical ICU, she was medically extubated on 09/26. Currently O2 via nasal cannula at 4L. Unlabored respirations noted. Patient alert to self and place. Limited awareness as to situation. Verbal, able to communicate needs. Endorsing back pain but unable to elaborate on details. Denies shortness of breath or abdominal discomfort. Febrile, stable hemodynamically. Vascular surgery following for worsening ischemia to extremities secondary to severe PVD. Infectious disease following, MV vegetation, MRSA sepsis currently on vancomycin. Nephrology following, patient with end-stage renal disease hemodialysis dependent. Renal mass discovered in November 2017 which is suspicious of renal cancer, patient refused workup at that time. Patient with multiple comorbidities and overall poor prognosis for prolonged survival or improved quality of life. No family at bedside during my visit. Patient with a limited insight into her complicated clinical condition. She told me that rationale for her current hospitalization is related to her kidneys but was unable to elaborate further. Gently review with patient her current clinical course and medical management. Patient stating "I do not want my leg off, that would not be good". When asked what her hopes are in regards to her health/clinical condition, patient verbalized "the Lord will provide". Patient verbalizing that she wants to "go home". Telephone conversation with daughter Zaria, medical update provided. Daughter verbalizing "I do not want her [patient] to suffer anymore". Daughter reports that family is aware of patient's overall poor prognosis given her multiple chronic ongoing medical issues. Daughter inquiring about hospice services. Reviewed hospice philosophy and benefits. Daughter reports that family is ready to transition patient to comfort directed care under hospice services and to stop her hemodialysis treatment. Reviewed life expectancy of days to up to 2 weeks in the setting of end-stage renal disease with discontinuation of hemodialysis. Daughter verbalized understanding, stating once more "I do not want her to suffer anymore". Hospice referral made. Case discussed with bedside RN. Daughter changing CODE STATUS to DNR/DNI. Advance Directives Living Will: Never completed Health Care Surrogate: Never completed Health Care Surrogate Name and Number: BETHANIE Clark Objective Vital Signs: Vital Signs 09/27/18 16:00 09/27/18 17:00 09/27/18 18:00 Temperature 99.8 F H Pulse Rate 89 89 90 Respiratory Rate 19 20 29 H Blood Pressure 130/68 138/70 134/74 Pulse Oximetry 96 95 96 09/27/18 19:00 09/27/18 19:52 09/27/18 20:00 Temperature 99.0 F Pulse Rate 87 90 Respiratory Rate 18 22 Blood Pressure 123/64 122/61 Pulse Oximetry 100 100 99 09/27/18 21:00 09/27/18 22:00 09/27/18 23:00 Temperature Pulse Rate 91 H 91 H 91 H Respiratory Rate 23 24 33 H Blood Pressure 120/65 123/68 Pulse Oximetry 96 84 L 09/27/18 23:05 09/27/18 23:46 09/28/18 00:00 Temperature 98.9 F Pulse Rate 92 H 87 Respiratory Rate 13 26 H Blood Pressure 113/67 109/59 L Pulse Oximetry 94 L 100 09/28/18 01:00 09/28/18 02:00 09/28/18 03:00 Temperature Pulse Rate 88 89 89 Respiratory Rate 27 H 26 H 22 Blood Pressure 93/52 L 117/68 124/68 Pulse Oximetry 100 98 100 09/28/18 04:00 09/28/18 05:00 09/28/18 06:00 Temperature 98.2 F Pulse Rate 92 H 88 89 Respiratory Rate 25 H 17 18 Blood Pressure 134/70 135/65 131/65 Pulse Oximetry 99 100 100 09/28/18 07:00 09/28/18 08:00 09/28/18 09:00 Temperature 99.1 F Pulse Rate 90 90 87 Respiratory Rate 26 H 23 28 H Blood Pressure 125/67 117/63 116/62 Pulse Oximetry 100 96 95 09/28/18 10:00 09/28/18 11:00 09/28/18 12:00 Temperature 98.3 F Pulse Rate 87 87 90 Respiratory Rate 23 23 24 Blood Pressure 114/63 149/71 H 138/69 Pulse Oximetry 91 L 98 96 09/28/18 12:03 09/28/18 14:00 Temperature Pulse Rate 85 Respiratory Rate Blood Pressure Pulse Oximetry 96 Intake & Output 09/27/18 09/28/18 09/28/18 18:59 06:59 18:59 Intake Total 262.5 / 262.5 120 / 120 Output Total 4650 / 4650 0 / 0 Balance -4387.5 / -4387.5 120 / 120 Weight 42.5 kg Intake: IV 262.5 / 262.5 Vancomycin Inj 1,250 MG In NS 262.5 / 262.5 Inj 250 ML @ 250 mls/hr IV.SIG WITH DIALYSIS RAFAEL Rx#:[id number] Oral 0 / 0 120 / 120 Tube Feeding 0 / 0 Tube Irrigant 0 / 0 Water Bolus Amount 0 / 0 Output: Urine 0 / 0 0 / 0 Stool 0 / 0 Urine/Stool Mix 0 / 0 Hemodialysis Amount 4600 / 4600 Estimated Blood Loss 50 / 50 Other: Post Void Residual 0 # Voids 0 # Incontinent Voids 0 # Urine Diapers 0 Date of Last Bowel Movement 09/27/18 09/28/18 09/28/18 # Bowel Movements 3 1 # Incontinent Bowel Movements 1 Physical Exam: CONSTITUTIONAL/GENERAL: This is a AA female patient resting in bed in no acute distress. TUBES/LINES/DRAINS: PIV, Vas-Cath, hussein. SKIN: No jaundice, rashes, or lesions. Ecchymoses on upper extremities. Skin temperature appropriate. Not diaphoretic. HEAD: Atraumatic. Normocephalic. EYES: Pupils equal and round and reactive. Extraocular motions intact. No scleral icterus. No injection or drainage. Fundi not examined. ENT: Hearing grossly normal. Nose without bleeding or purulent drainage. NECK: Trachea midline. Supple, nontender. CARDIOVASCULAR: Regular rate and rhythm. Weak right pedal pulses. RESPIRATORY/CHEST: Rhonchi but sounds bilaterally. Unlabored, regular respirations. GASTROINTESTINAL: Abdomen soft, non-tender, nondistended. Bowel sounds present. GENITOURINARY: Without palpable bladder distension. Hussein catheter in place. MUSCULOSKELETAL: AVF in the left arm with palpable thrill. Status post left BKA. Right foot with toe amputations noted, dry gangrene. NEUROLOGICAL: Awake, alert to self and place. Limited awareness as to situation. Following simple commands. Verbal. PSYCHIATRIC: Calm. Flat affect. Diagnostic Tests Laboratory: Laboratory Results - last 72 hr 11/03/18 11/04/18 11/04/18 17:25 01:48 EST 05:57 WBC 11.9 H RBC 3.14 L Hgb 8.4 L Hct 26.5 L MCV 84.4 MCH 26.8 L MCHC 31.8 L RDW 18.1 H Plt Count 375 MPV 10.1 Sodium Potassium Chloride Carbon Dioxide Anion Gap BUN Creatinine Estimated GFR POC Glucose 170 H 157 H Random Glucose Calcium Phosphorus Magnesium Total Bilirubin AST ALT Alkaline Phosphatase Total Protein Albumin 09/26/18 09/26/18 09/26/18 05:57 06:12 12:08 WBC RBC Hgb Hct MCV MCH MCHC RDW Plt Count MPV Sodium 139 Potassium 4.3 Chloride 97 L Carbon Dioxide 33.2 H Anion Gap 9 BUN 54 H Creatinine 4.24 H Estimated GFR 13 L POC Glucose 168 H 149 H Random Glucose 157 H Calcium 9.6 Phosphorus 3.7 Magnesium 2.7 H Total Bilirubin 0.8 AST 35 ALT 18 Alkaline Phosphatase 355 H Total Protein 7.7 Albumin 1.8 L 09/26/18 09/27/18 09/27/18 17:42 00:01 04:32 WBC 14.5 H RBC 3.00 L Hgb 7.9 L Hct 25.2 L MCV 84.1 MCH 26.3 L MCHC 31.3 L RDW 18.1 H Plt Count 417 MPV 9.7 Sodium Potassium Chloride Carbon Dioxide Anion Gap BUN Creatinine Estimated GFR POC Glucose 122 H 77 Random Glucose Calcium Phosphorus Magnesium Total Bilirubin AST ALT Alkaline Phosphatase Total Protein Albumin 09/27/18 09/27/18 09/27/18 04:32 05:22 11:29 WBC RBC Hgb Hct MCV MCH MCHC RDW Plt Count MPV Sodium 140 Potassium 5.3 H D Chloride 98 Carbon Dioxide 29.5 Anion Gap 13 BUN 74 H Creatinine 5.40 H Estimated GFR 10 L POC Glucose 107 97 Random Glucose 111 H Calcium 9.6 Phosphorus 6.0 H D Magnesium 3.0 H Total Bilirubin 1.0 AST 89 H ALT 27 Alkaline Phosphatase 382 H Total Protein 8.3 H D Albumin 1.9 L 09/27/18 09/27/18 09/28/18 17:32 23:59 05:20 WBC RBC Hgb Hct MCV MCH MCHC RDW Plt Count MPV Sodium Potassium Chloride Carbon Dioxide Anion Gap BUN Creatinine Estimated GFR POC Glucose 157 H 140 H 173 H Random Glucose Calcium Phosphorus Magnesium Total Bilirubin AST ALT Alkaline Phosphatase Total Protein Albumin 09/28/18 09/28/18 11:38 12:20 WBC RBC Hgb Hct MCV MCH MCHC RDW Plt Count MPV Sodium 141 Potassium 4.2 D Chloride 99 Carbon Dioxide 29.1 Anion Gap 13 BUN 49 H Creatinine 4.05 H Estimated GFR 14 L POC Glucose 126 H Random Glucose 128 H Calcium 9.1 Phosphorus 5.2 H Magnesium Total Bilirubin AST ALT Alkaline Phosphatase Total Protein Albumin Result Diagrams: 09/27/18 04:32 09/28/18 12:20 Procedures: 09/09/2018: To OR for pseudoaneurysm removal with AVF revision 09/09/2018: Right IJ dialysis catheter placed 09/13/2018: Endotracheal intubation 09/13/2018: Left groin arterial line 09/13/2018: Right groin central line 09/15/2018: Right groin central line discontinued 09/21/2018: Vas-Cath placement 09/26/2018: Medical extubation Assessment and Plan - Disease Oriented Problem List (1) Metabolic encephalopathy (2) Severe sepsis (3) Hyperkalemia (4) ESRD (end stage renal disease) (5) CAD (coronary artery disease) (6) PAD (peripheral artery disease) (7) Diabetes (8) Hypertension (9) Ischemic cardiomyopathy Pertinent Non-Medical Issues: Psychosocial: is incapacitated secondary to dementia and residing at a halfway. She has 2 children, daughter Marina and son Malou. Son unable to be located. Spiritual: No amish affiliation. Legal: No advance directives completed. Ethical issues impacting care: No ethical issues identified. 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 Patient admitted secondary to sepsis and respiratory failure requiring intubation and mechanical ventilation. Patient with multiple comorbidities and overall poor prognosis for prolonged survival or improved quality of life. She remains at a very high risk for further complications, continued decline and . Code Status: No Code DNR Plan: * CODE STATUS: DNR/DNI. * HEALTHCARE DECISION-MAKING: Patient unable to participate at this time in medical decision making secondary to clinical condition/limited insight into her complicated clinical condition. She does not appear to retain medical decision-making capacity at this time. Unclear at this time if she will regain medical decision-making capacity. No advance directives completed as per family. Patient ; however, incapacitated secondary to dementia and currently living in a halfway. Patient has 2 adult children. Daughter Marina and son Malou. Family reports that son has been estranged from family for many years and they do not know his whereabouts. Daughter Marina participating in medical decision making as healthcare proxy. * GOALS OF CARE: Daughter Marina acting as HCP electing to transition patient to comfort-directed care under hospice services and to discontinue hemodialysis treatment. Daughter stating "I do not want her to suffer anymore" . Daughter reports that family is aware of patient's overall poor prognosis given her multiple chronic ongoing medical issues. Reviewed life expectancy of days to up to 2 weeks in the setting of end-stage renal disease with discontinuation of hemodialysis. Daughter verbalized understanding, stating once more "I do not want her to suffer anymore". Family anticipating discharge to hospice care center for symptom management of pain, shortness of breath and end-of-life care. * SYMPTOMS: Pain: Multifactorial. Possible contributing factors include infection, impaired skin integrity, impaired circulation, recent invasive procedures, invasive lines etc. [place] 5/325 and IV morphine 2 mg available as needed. Palliative care recommends discontinuing morphine in the setting of end-stage renal disease given high risk for neurotoxicity. Recommending hydromorphone 0.25mg IV for moderate pain / 0.5mg for severe pain IV q4hrs PRN. * Hospice referral made. * Ongoing emotional support and active listening provided to patient's family * Case discussed with bedside RN and attending. Time Spent Total Floor Time (mins): 38 (Total time to include review and summarization of medical records, physical exam, goals of care conversation with patient and daughter, case discussion with bedside RN, case discussion with hospice.) >50% Time in Counseling or Coordination of Care: Yes (Total visit time = 38 minutes; > 50% spent counseling/coordinating care) Attestation Attestation: To help prompt me to consider important information that might be impacting today's encounter and assessment, information from prior notes written by myself or my colleagues may have been "brought forward" into today's note. My signature on this note, however, is an attestation that I personally performed the exam, history, and/or decision-making noted today, and, unless otherwise indicated, the interactions with patient, family, and staff as well as the review of records all occurred today. I also attest that the listed assessment and stated plan reflect my best clinical judgment today based on the combination of historical information, prior notes, and today's exam/ interactions. When time spent is documented, it refers only to time spent today by the signer, or if indicated, combined time spent today by collaborating physician/nurse practitioner.
--- NOTE | 2018-09-28 17:06 | P.PNIM ---
Subjective Interval history: Patient's chief complaint is discomfort, she is tired of lying in one position all day. But she is too weak to work with physical therapy has been trying to assist her with movements. Wound care nurse visited with patient and explored a sacral wound which ended up being a stage IV to the bone. Physical Exam Vital signs: Vital Signs 09/27/18 18:00 09/27/18 19:00 09/27/18 19:52 Temperature Pulse Rate 90 87 Respiratory Rate 29 H 18 Blood Pressure 134/74 123/64 Pulse Oximetry 96 100 100 09/27/18 20:00 09/27/18 21:00 09/27/18 22:00 Temperature 99.0 F Pulse Rate 90 91 H 91 H Respiratory Rate 22 23 24 Blood Pressure 122/61 120/65 123/68 Pulse Oximetry 99 96 84 L 09/27/18 23:00 09/27/18 23:05 09/27/18 23:46 Temperature Pulse Rate 91 H 92 H Respiratory Rate 33 H 13 Blood Pressure 113/67 Pulse Oximetry 94 L 09/28/18 00:00 09/28/18 01:00 09/28/18 02:00 Temperature 98.9 F Pulse Rate 87 88 89 Respiratory Rate 26 H 27 H 26 H Blood Pressure 109/59 L 93/52 L 117/68 Pulse Oximetry 100 100 98 09/28/18 03:00 09/28/18 04:00 09/28/18 05:00 Temperature 98.2 F Pulse Rate 89 92 H 88 Respiratory Rate 22 25 H 17 Blood Pressure 124/68 134/70 135/65 Pulse Oximetry 100 99 100 09/28/18 06:00 09/28/18 07:00 09/28/18 08:00 Temperature 99.1 F Pulse Rate 89 90 90 Respiratory Rate 18 26 H 23 Blood Pressure 131/65 125/67 117/63 Pulse Oximetry 100 100 96 09/28/18 09:00 09/28/18 10:00 09/28/18 11:00 Temperature Pulse Rate 87 87 87 Respiratory Rate 28 H 23 23 Blood Pressure 116/62 114/63 149/71 H Pulse Oximetry 95 91 L 98 09/28/18 12:00 09/28/18 12:03 09/28/18 14:00 Temperature 98.3 F Pulse Rate 90 85 Respiratory Rate 24 Blood Pressure 138/69 Pulse Oximetry 96 96 Intake & Output 09/27/18 09/28/18 09/28/18 18:59 06:59 18:59 Intake Total 262.5 / 262.5 120 / 120 Output Total 4650 / 4650 0 / 0 Balance -4387.5 / -4387.5 120 / 120 Weight 42.5 kg Intake: IV 262.5 / 262.5 Vancomycin Inj 1,250 MG In NS 262.5 / 262.5 Inj 250 ML @ 250 mls/hr IV.SIG WITH DIALYSIS RAFAEL Rx#:[id number] Oral 0 / 0 120 / 120 Tube Feeding 0 / 0 Tube Irrigant 0 / 0 Water Bolus Amount 0 / 0 Output: Urine 0 / 0 0 / 0 Stool 0 / 0 Urine/Stool Mix 0 / 0 Hemodialysis Amount 4600 / 4600 Estimated Blood Loss 50 / 50 Other: Post Void Residual 0 # Voids 0 # Incontinent Voids 0 # Urine Diapers 0 Date of Last Bowel Movement 09/27/18 09/28/18 09/28/18 # Bowel Movements 3 1 # Incontinent Bowel Movements 1 Narrative: GENERAL: AAOx3, no acute distress, thin, frail SKIN: Warm and dry. No rashes HEAD: Atruamtic, normocephalic. EYES: No scleral icterus. No injection or drainage. ENT: Moist mucous membranes, patent nares, no erythema of oropharynx. NECK: Supple, trachea midline. No JVD or lymphadenopathy. Normal thyroid. CARDIOVASCULAR: Regular rate and rhythm. No murmurs, gallops, or rubs. RESPIRATORY: Scattered congestive sounds anteriorly. No accessory muscle use. GASTROINTESTINAL: Abdomen soft, non-tender, nondistended, normal active bowel sounds MUSCULOSKELETAL: No cyanosis, or edema. NEURO: CN II-XII grossly intact, no focal deficits, no slurring of speech Results - Labs CBC & Chem 7: 09/27/18 04:32 09/28/18 12:20 Laboratory Results - last 24 hr 09/27/18 09/27/18 09/28/18 17:32 23:59 05:20 Sodium Potassium Chloride Carbon Dioxide Anion Gap BUN Creatinine Estimated GFR POC Glucose 157 H 140 H 173 H Random Glucose Calcium Phosphorus 09/28/18 09/28/18 11:38 12:20 Sodium 141 Potassium 4.2 D Chloride 99 Carbon Dioxide 29.1 Anion Gap 13 BUN 49 H Creatinine 4.05 H Estimated GFR 14 L POC Glucose 126 H Random Glucose 128 H Calcium 9.1 Phosphorus 5.2 H - Imaging Impressions Upper Extremity Ultrasound 09/28/18 00:00 CONCLUSION: 1. Nondescript soft tissue swelling/edema. Assessment and Plan - Plan 58-year-old female with end-stage renal disease, on dialysis, right renal mass, type 2 diabetes, CHF, endocarditis who presented with altered mental status following missed dialysis and time spent on floor wedged between her bed and a dresser drawer. She recovered slowly but after gaining some strength back had an episode of respiratory failure which caused intubation once again on 2017. Since then she has been continuing with dialysis and is now extubated and seemingly back to her baseline which is lying in bed alert and oriented x3 but too weak to make any significant gains to her movement. 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 EEG on 09/15 showed general slowing Patient had normal CT of the brain on admission MRSA sepsis Both blood cultures and wound culture returned positive for MRSA Infected pseudoaneurysm of AV graft removed Continuing renally dosed vancomycin, Zosyn discontinued by infectious disease Ischemic right foot, vascular surgery consulted by infectious disease Appreciate infectious disease consult Appreciate vascular surgery consult Sacral ulcer, stage IV Wound care recommends Santyl and Dakin's solution Patient will likely need to address this surgically for closure Appreciate wound care nurse consult AV fistula repair 09/09/18 Patient underwent repair of left AV fistula yesterday, pseudoaneurysm was infected Surgical dressing appears clean dry and intact New Vas-Cath placed on 09/21 by interventional radiology End-stage renal disease Patient missed 2 dialysis treatments, now seems caught up Continue Thursday schedule Patient underwent surgery 09/09/18 for revision of her AV graft Appreciate nephrology consult Hyperkalemia Intermittent elevations prior to dialysis treatments Follow with a.m. labs Pulmonary Edema Continue with dialysis for fluid management Duo nebs every 6 hours scheduled and as needed Encourage incentive spirometry Right renal mass Urology consulted for evaluation, likely malignant Recommendation is likely nephrectomy by Dr. Ramses Perera Outpatient follow-up recommended following discharge Appreciate urology consult Type 2 diabetes Accu-Cheks with sliding scale insulin coverage Diabetic diet h/o CAD/CHF LAD stent 06/08 Chronic systolic CHF, EF equals 30-35% in 2017, severe TR h/o PAD left BKA, iliofemoral bypass, right femoropopliteal bypass November 2017 Continue baby aspirin DVT Prophylaxis Heparin every 12 hours Discharge planning At best patient will need a rehab facility, her prognosis is poor as far as improvement Patient expressed interest in hospice when her manager trust brought it up today , hospice is consulted
--- NOTE | 2018-09-28 17:11 | P.PNVS ---
Subjective Subjective/Hospital Course: No significant change Objective Vital Signs / I&O: Vital Signs 09/27/18 18:00 09/27/18 19:00 09/27/18 19:52 Temperature Pulse Rate 90 87 Respiratory Rate 29 H 18 Blood Pressure 134/74 123/64 Pulse Oximetry 96 100 100 09/27/18 20:00 09/27/18 21:00 09/27/18 22:00 Temperature 99.0 F Pulse Rate 90 91 H 91 H Respiratory Rate 22 23 24 Blood Pressure 122/61 120/65 123/68 Pulse Oximetry 99 96 84 L 09/27/18 23:00 09/27/18 23:05 09/27/18 23:46 Temperature Pulse Rate 91 H 92 H Respiratory Rate 33 H 13 Blood Pressure 113/67 Pulse Oximetry 94 L 09/28/18 00:00 09/28/18 01:00 09/28/18 02:00 Temperature 98.9 F Pulse Rate 87 88 89 Respiratory Rate 26 H 27 H 26 H Blood Pressure 109/59 L 93/52 L 117/68 Pulse Oximetry 100 100 98 09/28/18 03:00 09/28/18 04:00 09/28/18 05:00 Temperature 98.2 F Pulse Rate 89 92 H 88 Respiratory Rate 22 25 H 17 Blood Pressure 124/68 134/70 135/65 Pulse Oximetry 100 99 100 09/28/18 06:00 09/28/18 07:00 09/28/18 08:00 Temperature 99.1 F Pulse Rate 89 90 90 Respiratory Rate 18 26 H 23 Blood Pressure 131/65 125/67 117/63 Pulse Oximetry 100 100 96 09/28/18 09:00 09/28/18 10:00 09/28/18 11:00 Temperature Pulse Rate 87 87 87 Respiratory Rate 28 H 23 23 Blood Pressure 116/62 114/63 149/71 H Pulse Oximetry 95 91 L 98 09/28/18 12:00 09/28/18 12:03 09/28/18 14:00 Temperature 98.3 F Pulse Rate 90 85 Respiratory Rate 24 Blood Pressure 138/69 Pulse Oximetry 96 96 Intake & Output 09/27/18 09/28/18 09/28/18 18:59 06:59 18:59 Intake Total 262.5 / 262.5 120 / 120 Output Total 4650 / 4650 0 / 0 Balance -4387.5 / -4387.5 120 / 120 Weight 42.5 kg Intake: IV 262.5 / 262.5 Vancomycin Inj 1,250 MG In NS 262.5 / 262.5 Inj 250 ML @ 250 mls/hr IV.SIG WITH DIALYSIS RAFAEL Rx#:[id number] Oral 0 / 0 120 / 120 Tube Feeding 0 / 0 Tube Irrigant 0 / 0 Water Bolus Amount 0 / 0 Output: Urine 0 / 0 0 / 0 Stool 0 / 0 Urine/Stool Mix 0 / 0 Hemodialysis Amount 4600 / 4600 Estimated Blood Loss 50 / 50 Other: Post Void Residual 0 # Voids 0 # Incontinent Voids 0 # Urine Diapers 0 Date of Last Bowel Movement 09/27/18 09/28/18 09/28/18 # Bowel Movements 3 1 # Incontinent Bowel Movements 1 Physical Exam: Right lower extremity with dry gangrene Left BKA wound nonhealing Left upper extremity showing signs of steal syndrome and ischemia to the third digit. Laboratory Results - last 24 hr 09/27/18 09/27/18 09/28/18 17:32 23:59 05:20 Sodium Potassium Chloride Carbon Dioxide Anion Gap BUN Creatinine Estimated GFR POC Glucose 157 H 140 H 173 H Random Glucose Calcium Phosphorus 09/28/18 09/28/18 11:38 12:20 Sodium 141 Potassium 4.2 D Chloride 99 Carbon Dioxide 29.1 Anion Gap 13 BUN 49 H Creatinine 4.05 H Estimated GFR 14 L POC Glucose 126 H Random Glucose 128 H Calcium 9.1 Phosphorus 5.2 H Impressions Upper Extremity Ultrasound 09/28/18 00:00 CONCLUSION: 1. Nondescript soft tissue swelling/edema. Assessment and Plan - Assessment (1) Abscess of upper extremity Code(s): L02.419 - Cutaneous abscess of limb, unspecified Status: Acute (2) Toxic metabolic encephalopathy Code(s): G92 - Toxic encephalopathy Status: Deleted (3) Severe sepsis Code(s): A41.9 - Sepsis, unspecified organism; R65.20 - Severe sepsis without septic shock Status: Deleted (4) PAD (peripheral artery disease) Code(s): I73.9 - Peripheral vascular disease, unspecified Status: Deleted - Plan Left upper extremity abscess, infected hematoma. S/P excision of infected PSA. Now showing chronic ischemia to the left third digit. Most likely recurrent steal syndrome. May use left upper extremity AV fistula for hemodialysis. Right lower extremity peripheral vascular disease dry gangrene, likely failed intervention from months ago no other revascularization options - needs AKA LBKA stump will need revision in the future, conversion to AKA prognosis is poor. Agree with palliative care and hospice.
[2018-09-28] MEDS: Collagenase Oint 30 GM Tube TOPICAL SCH (20:39)
[2018-09-28] MEDS: Sodium Hypochlorite 0.125% Top Soln 500 ML Bottle IRRIGATION SCH (20:39)
[2018-09-29] MEDS: Insulin NovoLIN Regular Correctional Sugar Inj SQ SCH ×4 (01:00→19:54)
[2018-09-29] MEDS: Heparin - SQ 10,000 UNITS/ML Vial SQ SCH ×2 (06:03→19:53)
[2018-09-29 06:21] LABS: Alanine Aminotransferase 281 U/L (10-53); Albumin 2.1 g/dL (3.4-5.0); Alkaline Phosphatase 411 U/L (45-117); Anion Gap 12 meq/L (5-15); Aspartate Aminotransferase 502 U/L (15-37); Blood Urea Nitrogen 55 mg/dL (7-18); Calcium 9.3 mg/dL (8.5-10.1); Carbon Dioxide 29.2 meq/L (21.0-32.0); Chloride 98 meq/L (98-107); Glomerular Filtration Rate 11 mL/min (>89); Glucose,Random 137 mg/dL (74-106); Hemoglobin 9.1 gm/dL (11.6-15.3); Magnesium 2.7 mg/dL (1.5-2.5); Mean Corpuscular HGB Conc 31.4 % (32.0-36.0); Mean Corpuscular Hemoglobin 26.5 pg (27.0-34.0); Mean Corpuscular Volume 84.2 fL (80.0-100.0); Mean Platelet Volume 9.8 fL (7.0-11.0); Phosphorus 5.3 mg/dL (2.5-4.9); Platelet Count 493 th/mm3 (150-450); Potassium 4.6 meq/L (3.5-5.1); Red Blood Count 3.45 mil/mm3 (4.00-5.30); Red Cell Distribution Width 17.8 % (11.6-17.2); Sodium 139 meq/L (136-145); White Blood Count 15.3 th/mm3 (4.0-11.0)
[2018-09-29] MEDS: Vancomycin Inj 1,250 MG in Sodium Chlor 0.9% Inj 250 ML IV.SIG SCH (10:19)
[2018-09-29] MEDS: Heparin 10,000 UNITS/10 ML Vial (for IV use) OTHER PRN (10:20)
--- NOTE | 2018-09-29 11:32 | P.PNNP ---
Subjective Interval history: Patient was seen on dialysis, Patient was on 2K, blood flow rate of 350mL/min, UF goal of 2L. Per the RN, there is a Hospice meeting today. <Marshal Chávez - Last Filed: 09/29/18 12:36> Physical Exam Vital signs: Vital Signs 09/28/18 12:00 09/28/18 12:03 09/28/18 13:00 Temperature 98.3 F Pulse Rate 90 88 Respiratory Rate 24 20 Blood Pressure 138/69 122/62 Pulse Oximetry 96 96 100 09/28/18 14:00 09/28/18 15:00 09/28/18 16:00 Temperature 98.0 F Pulse Rate 85 90 85 Respiratory Rate 18 25 H 18 Blood Pressure 114/56 L 144/73 H 143/78 H Pulse Oximetry 100 61 L 97 09/28/18 17:00 09/28/18 18:00 09/28/18 19:56 Temperature Pulse Rate 87 91 H Respiratory Rate 19 Blood Pressure 143/78 H Pulse Oximetry 100 100 09/28/18 20:00 09/28/18 22:00 09/29/18 00:00 Temperature 98.6 F 98.6 F Pulse Rate 85 85 87 Respiratory Rate 17 26 H Blood Pressure 147/75 H 145/77 H Pulse Oximetry 100 100 09/29/18 02:00 09/29/18 04:00 09/29/18 06:00 Temperature 99.2 F Pulse Rate 86 92 H 89 Respiratory Rate 28 H Blood Pressure 121/66 Pulse Oximetry 99 09/29/18 09:42 Temperature Pulse Rate Respiratory Rate Blood Pressure Pulse Oximetry 99 Intake & Output 09/28/18 09/29/18 09/29/18 18:59 06:59 18:59 Intake Total 240 / 240 120 / 120 262.5 / 262.5 Output Total 0 / 0 0 / 0 1999 Balance 240 / 240 120 / 120 -1737.5 / -1737.5 Weight 45 kg Intake: IV 262.5 / 262.5 Vancomycin Inj 1,250 MG In NS 262.5 / 262.5 Inj 250 ML @ 250 mls/hr IV.SIG WITH DIALYSIS [facility] Rx#:[id number] Oral 240 / 240 120 / 120 Tube Feeding 0 / 0 Tube Irrigant 0 / 0 Water Bolus Amount 0 / 0 Output: Urine 0 / 0 0 / 0 Stool 0 / 0 Urine/Stool Mix 0 / 0 Hemodialysis Amount 1999 Other: Post Void Residual 0 # Voids 0 # Incontinent Voids 0 # Urine Diapers 0 Date of Last Bowel Movement 09/28/18 09/29/18 09/29/18 # Bowel Movements 2 1 # Incontinent Bowel Movements 2 - Constitutional no acute distress - Routine HEENT Exam Head: Present: normocephalic Eye: Present: EOMI ENT: Present: mucous membranes moist - Routine Neck Exam Present: trachea midline. Absent: tracheal deviation - Routine Respiratory Exam Absent: accessory muscle use, patient mechanically ventilated, respiratory distress - Routine Abdominal Exam Present: soft. Absent: tenderness - Routine Extremities Exam Present: extremity cold to touch, amputation. Absent: edema Comments: Patient has left BKA. Patient's right distal extremity cold to touch. Patient has several toe amputations on right foot. <Marshal Chávez - Last Filed: 09/29/18 12:36> Vital signs: Vital Signs 09/28/18 18:00 09/28/18 19:56 09/28/18 20:00 Temperature 98.6 F Pulse Rate 91 H 85 Respiratory Rate 17 Blood Pressure 147/75 H Pulse Oximetry 100 100 09/28/18 22:00 09/29/18 00:00 09/29/18 02:00 Temperature 98.6 F Pulse Rate 85 87 86 Respiratory Rate 26 H Blood Pressure 145/77 H Pulse Oximetry 100 09/29/18 04:00 09/29/18 06:00 09/29/18 08:00 Temperature 99.2 F 98.9 F Pulse Rate 92 H 89 91 H Respiratory Rate 28 H 21 Blood Pressure 121/66 134/72 Pulse Oximetry 99 96 09/29/18 09:42 09/29/18 10:00 09/29/18 12:00 Temperature 98.7 F Pulse Rate 91 H 87 Respiratory Rate 19 Blood Pressure 145/76 H Pulse Oximetry 99 09/29/18 14:00 09/29/18 15:40 Temperature 97.9 F Pulse Rate 91 H 89 Respiratory Rate 18 Blood Pressure 144/86 H Pulse Oximetry 98 Intake & Output 09/28/18 09/29/18 09/29/18 18:59 06:59 18:59 Intake Total 240 / 240 120 / 120 262.5 / 262.5 Output Total 0 / 0 0 / 0 1999 Balance 240 / 240 120 / 120 -1737.5 / -1737.5 Weight 45 kg Intake: IV 262.5 / 262.5 Vancomycin Inj 1,250 MG In NS 262.5 / 262.5 Inj 250 ML @ 250 mls/hr IV.SIG WITH DIALYSIS [facility] Rx#:[id number] Oral 240 / 240 120 / 120 Tube Feeding 0 / 0 Tube Irrigant 0 / 0 Water Bolus Amount 0 / 0 Output: Urine 0 / 0 0 / 0 Stool 0 / 0 Urine/Stool Mix 0 / 0 Hemodialysis Amount 1999 Other: Post Void Residual 0 # Voids 0 # Incontinent Voids 0 # Urine Diapers 0 Date of Last Bowel Movement 09/28/18 09/29/18 09/29/18 # Bowel Movements 2 1 # Incontinent Bowel Movements 2 <Nazario Ahumada - Last Filed: 09/29/18 17:10> Assessment and Plan - Assessment (1) ESRD (end stage renal disease) Code(s): N18.6 - End stage renal disease Status: Deleted Plan: Dialysis MWF. Patient getting dialyzed today. Hgb 9.1, Epogen to be given with dialysis. She is s/p repair/excision of infected pseudoaneurysm of AVF. (2) Hyperkalemia Code(s): E87.5 - Hyperkalemia Status: Deleted Plan: K was 4.6 today. . (3) Renal mass Code(s): N28.89 - Other specified disorders of kidney and ureter Status: Acute Plan: Renal mass has grown in size, most likely malignancy. Urology note reviewed, to follow up after discharge. Previously the patient had refused workup. (4) Severe sepsis Code(s): A41.9 - Sepsis, unspecified organism; R65.20 - Severe sepsis without septic shock Status: Deleted Plan: MRSA sepsis, endocarditis. MRI of the brain negative for septic emboli. She has mitral valve vegetation. On Vancomycin. s/p excision of infected pseudoaneurysm of AVF. (5) CAD (coronary artery disease) Code(s): I25.10 - Atherosclerotic heart disease of [place] coronary artery without angina pectoris Status: Deleted (6) PAD (peripheral artery disease) Code(s): I73.9 - Peripheral vascular disease, unspecified Status: Deleted Plan: s/p left BKA. Poor circulation of right lower extremity. Vascular surgery following. Not a candidate for revascularization. (7) DM2 (diabetes mellitus, type 2) Code(s): E11.9 - Type 2 diabetes mellitus without complications Status: Deleted Plan: maintain blood glucose between 140 and 180 while hospitalized. <Marshal Chávez - Last Filed: 09/29/18 12:36> - Assessment (1) ESRD (end stage renal disease) Code(s): N18.6 - End stage renal disease Status: Deleted (2) Hyperkalemia Code(s): E87.5 - Hyperkalemia Status: Deleted (3) Renal mass Code(s): N28.89 - Other specified disorders of kidney and ureter Status: Acute (4) Severe sepsis Code(s): A41.9 - Sepsis, unspecified organism; R65.20 - Severe sepsis without septic shock Status: Deleted (5) CAD (coronary artery disease) Code(s): I25.10 - Atherosclerotic heart disease of [place] coronary artery without angina pectoris Status: Deleted (6) PAD (peripheral artery disease) Code(s): I73.9 - Peripheral vascular disease, unspecified Status: Deleted (7) DM2 (diabetes mellitus, type 2) Code(s): E11.9 - Type 2 diabetes mellitus without complications Status: Deleted - Attending Attestation patient was seen and examined. Agree with above assessment and plan. Very poor prognosis. Hospice is appropriate <Nazario Ahumada - Last Filed: 09/29/18 17:10>
--- NOTE | 2018-09-29 11:43 | P.PNIM ---
Subjective Interval history: Spoke with patient today about hospice, she states that she does not want to stop dialysis and does not want hospice. Her daughter had spoken with nephrology who requested placement of hospice consult but it seems there is a bit of a disagreement between her daughter and herself. Physical Exam Vital signs: Vital Signs 09/28/18 12:00 09/28/18 12:03 09/28/18 13:00 Temperature 98.3 F Pulse Rate 90 88 Respiratory Rate 24 20 Blood Pressure 138/69 122/62 Pulse Oximetry 96 96 100 09/28/18 14:00 09/28/18 15:00 09/28/18 16:00 Temperature 98.0 F Pulse Rate 85 90 85 Respiratory Rate 18 25 H 18 Blood Pressure 114/56 L 144/73 H 143/78 H Pulse Oximetry 100 61 L 97 09/28/18 17:00 09/28/18 18:00 09/28/18 19:56 Temperature Pulse Rate 87 91 H Respiratory Rate 19 Blood Pressure 143/78 H Pulse Oximetry 100 100 09/28/18 20:00 09/28/18 22:00 09/29/18 00:00 Temperature 98.6 F 98.6 F Pulse Rate 85 85 87 Respiratory Rate 17 26 H Blood Pressure 147/75 H 145/77 H Pulse Oximetry 100 100 09/29/18 02:00 09/29/18 04:00 09/29/18 06:00 Temperature 99.2 F Pulse Rate 86 92 H 89 Respiratory Rate 28 H Blood Pressure 121/66 Pulse Oximetry 99 09/29/18 09:42 Temperature Pulse Rate Respiratory Rate Blood Pressure Pulse Oximetry 99 Intake & Output 09/28/18 09/29/18 09/29/18 18:59 06:59 18:59 Intake Total 240 / 240 120 / 120 262.5 / 262.5 Output Total 0 / 0 0 / 0 1999 / 1999 Balance 240 / 240 120 / 120 -1737.5 / -1737.5 Weight 45 kg Intake: IV 262.5 / 262.5 Vancomycin Inj 1,250 MG In NS 262.5 / 262.5 Inj 250 ML @ 250 mls/hr IV.SIG WITH DIALYSIS [facility] Rx#:[id number] Oral 240 / 240 120 / 120 Tube Feeding 0 / 0 Tube Irrigant 0 / 0 Water Bolus Amount 0 / 0 Output: Urine 0 / 0 0 / 0 Stool 0 / 0 Urine/Stool Mix 0 / 0 Hemodialysis Amount 1999 Other: Post Void Residual 0 # Voids 0 # Incontinent Voids 0 # Urine Diapers 0 Date of Last Bowel Movement 09/28/18 09/29/18 09/29/18 # Bowel Movements 2 1 # Incontinent Bowel Movements 2 Narrative: GENERAL: AAOx3, no acute distress, thin, frail SKIN: Warm and dry. No rashes HEAD: Atruamtic, normocephalic. EYES: No scleral icterus. No injection or drainage. ENT: Moist mucous membranes, patent nares, no erythema of oropharynx. NECK: Supple, trachea midline. No JVD or lymphadenopathy. Normal thyroid. CARDIOVASCULAR: Regular rate and rhythm. No murmurs, gallops, or rubs. RESPIRATORY: Scattered congestive sounds anteriorly. No accessory muscle use. GASTROINTESTINAL: Abdomen soft, non-tender, nondistended, normal active bowel sounds MUSCULOSKELETAL: No cyanosis, or edema. NEURO: CN II-XII grossly intact, no focal deficits, no slurring of speech Results - Labs CBC & Chem 7: 09/29/18 05:35 09/29/18 05:35 Laboratory Results - last 24 hr 09/28/18 09/28/18 09/29/18 12:20 17:57 00:22 WBC RBC Hgb Hct MCV MCH MCHC RDW Plt Count MPV Sodium 141 Potassium 4.2 D Chloride 99 Carbon Dioxide 29.1 Anion Gap 13 BUN 49 H Creatinine 4.05 H Estimated GFR 14 L POC Glucose 120 H 158 H Random Glucose 128 H Calcium 9.1 Phosphorus 5.2 H Magnesium Total Bilirubin AST ALT Alkaline Phosphatase Total Protein Albumin 09/29/18 09/29/18 09/29/18 05:12 05:35 05:35 WBC 15.3 H RBC 3.45 L Hgb 9.1 L Hct 29.0 L MCV 84.2 MCH 26.5 L MCHC 31.4 L RDW 17.8 H Plt Count 493 H MPV 9.8 Sodium 139 Potassium 4.6 Chloride 98 Carbon Dioxide 29.2 Anion Gap 12 BUN 55 H Creatinine 4.77 H Estimated GFR 11 L POC Glucose 153 H Random Glucose 137 H Calcium 9.3 Phosphorus 5.3 H Magnesium 2.7 H Total Bilirubin 0.8 AST 502 H ALT 281 H Alkaline Phosphatase 411 H Total Protein 9.0 H D Albumin 2.1 L - Imaging Impressions Upper Extremity Ultrasound 09/28/18 00:00 CONCLUSION: 1. Nondescript soft tissue swelling/edema. Assessment and Plan - Plan 58-year-old female with end-stage renal disease, on dialysis, right renal mass, type 2 diabetes, CHF, endocarditis who presented with altered mental status following missed dialysis and time spent on floor wedged between her bed and a dresser drawer. She recovered slowly but after gaining some strength back had an episode of respiratory failure which caused intubation once again on 2017. Since then she has been continuing with dialysis and is now extubated and seemingly back to her baseline which is lying in bed alert and oriented x3 but too weak to make any significant gains to her movement. 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 EEG on 09/15 showed general slowing Patient had normal CT of the brain on admission MRSA sepsis Both blood cultures and wound culture returned positive for MRSA Infected pseudoaneurysm of AV graft removed Continuing renally dosed vancomycin, Zosyn discontinued by infectious disease Ischemic right foot, vascular surgery consulted by infectious disease Appreciate infectious disease consult Appreciate vascular surgery consult Sacral ulcer, stage IV Wound care recommends Santyl and Dakin's solution Patient will likely need to address this surgically for closure Appreciate wound care nurse consult Hospice consult Patient's daughter requested hospice consult, patient is uninterested in hospice Patient is alert and oriented x3 and seems capable of making her own decisions, this may be more of a family matter Appreciate palliative care consult AV fistula repair 09/09/18 Patient underwent repair of left AV fistula yesterday, pseudoaneurysm was infected Surgical dressing appears clean dry and intact New Vas-Cath placed on 09/21 by interventional radiology End-stage renal disease Patient missed 2 dialysis treatments, now seems caught up Continue Thursday schedule Patient underwent surgery 09/09/18 for revision of her AV graft Appreciate nephrology consult Hyperkalemia Intermittent elevations prior to dialysis treatments Follow with a.m. labs Pulmonary Edema Continue with dialysis for fluid management Duo nebs every 6 hours scheduled and as needed Encourage incentive spirometry Right renal mass Urology consulted for evaluation, likely malignant Recommendation is likely nephrectomy by Dr. Ramses Perera Outpatient follow-up recommended following discharge Appreciate urology consult Type 2 diabetes Accu-Cheks with sliding scale insulin coverage Diabetic diet h/o CAD/CHF LAD stent 06/08 Chronic systolic CHF, EF equals 30-35% in 2017, severe TR h/o PAD left BKA, iliofemoral bypass, right femoropopliteal bypass November 2017 Continue baby aspirin DVT Prophylaxis Heparin every 12 hours Discharge planning At best patient will need a rehab facility, her prognosis is poor as far as improvement Patient's daughter wishes for hospice, patient herself does not want hospice
[2018-09-29] MEDS: Senna/Docusate Sodium 8.6/50 MG Tablet PO SCH (12:00)
[2018-09-29] MEDS: Modafinil 200 MG Tablet PO SCH (12:00)
[2018-09-29] MEDS: Collagenase Oint 30 GM Tube TOPICAL SCH (12:00)
[2018-09-29] MEDS: Artificial Tears Opth Drops 15 ML Bottle EACH EYE SCH (12:00)
[2018-09-29] MEDS: Famotidine 20 MG Tablet PO SCH (12:01)
[2018-09-29] MEDS: Sodium Hypochlorite 0.125% Top Soln 500 ML Bottle IRRIGATION SCH (12:01)
--- NOTE | 2018-09-29 19:17 | P.DS ---
Date of admission: 09/06/18 12:21 Primary care physician: No Primary Care Physician Brief History from admission: No history is obtainable from the patient due to altered mental status. All history obtained from chart review and discussion with ED attending. Patient is a 58-year-old -[place] female with past medical history of type 2 diabetes, hypertension, hyperlipidemia, ESRD on HD M/W/F, CHF Echo 03/22/07 EF 30 -35%, CAD, s/p LAD stent 06/08, status post left BKA. Patient was brought to the emergency department by EMS for altered mental status. Apparently patient was found lying on the floor between 2 dressers, missed two dialysis appointments. CT of the head was negative for acute findings chest x-ray showed pulmonary vascular congestion, left lower lobe atelectasis. CT abdomen pelvis showed large 6.2 cm renal mass which has grown in size since last scan in Nov 2017, and suspicious for renal cell carcinoma. Her WBC count was 23.4 with left shift, with altered mental status this was most likely secondary to severe sepsis. Patient was empirically given vancomycin and Zosyn in the ED after getting blood cultures. Also her potassium was 6.3 patient is receiving bicarb now and nephrology had been contacted for stat dialysis I evaluated the patient in the emergency department. Patient is very lethargic encephalopathic. She mumbles a few words but did not follow commands. Even though very lethargic at this point she is protecting airway. In addition to IV bicarb I will also give 5 units of insulin and IV dextrose. Antibiotics will be continued-renally dosed vancomycin and Zosyn. Will request nephrology and urology consult. At this time critically ill with severe sepsis. DS: Summary Hospital Course: 58-year-old female with end-stage renal disease admitted approximately 1 month ago following a fall onto the floor where she remained for at least 2 days. She presented to the hospital fluid overloaded after missing 1-2 dialysis treatments, also presenting with sepsis, pneumonia, left stump infection. She had bruising and superficial wounds all over her body. She had a scan which showed an incidental renal mass that is suspicious for carcinoma. Over the past month she has spent most of her time in the ICU. She has developed a stage IV sacral ulcer. Approximately 1-1/2 weeks ago she graduated from the ICU but then came back to the ICU in respiratory failure. She was placed again onset of the service of the hospitalist's and under my care or I recognized her from having taken care of her 3 weeks earlier. Her family has been entertaining the possibility of hospice. Patient herself had a questionable response this morning and stated that she did not want hospice. After hospice nurses have consulted with her it seems that she is in place to make a decision about hospice and this is supported by her daughters who have been considering that option. Hospice nurse has requested a discharge to hospice care center. - Time Spent with Patient Total time spent providing and/or coordinating discharge services: Less than 30 minutes - Quality: VTE Deep Vein Thrombosis/Pulmonary Embolism Present on Admission: No Exam Vital signs: Vital Signs 09/28/18 19:56 09/28/18 20:00 09/28/18 22:00 Temperature 98.6 F Pulse Rate 85 85 Respiratory Rate 17 Blood Pressure 147/75 H Pulse Oximetry 100 100 09/29/18 00:00 09/29/18 02:00 09/29/18 04:00 Temperature 98.6 F 99.2 F Pulse Rate 87 86 92 H Respiratory Rate 26 H 28 H Blood Pressure 145/77 H 121/66 Pulse Oximetry 100 99 09/29/18 06:00 09/29/18 08:00 09/29/18 09:42 Temperature 98.9 F Pulse Rate 89 91 H Respiratory Rate 21 Blood Pressure 134/72 Pulse Oximetry 96 99 09/29/18 10:00 09/29/18 12:00 09/29/18 14:00 Temperature 98.7 F Pulse Rate 91 H 87 91 H Respiratory Rate 19 Blood Pressure 145/76 H Pulse Oximetry 09/29/18 15:40 Temperature 97.9 F Pulse Rate 89 Respiratory Rate 18 Blood Pressure 144/86 H Pulse Oximetry 98 Intake & Output 09/29/18 09/29/18 09/30/18 06:59 18:59 06:59 Intake Total 120 / 120 262.5 / 262.5 Output Total 0 / 0 1999 Balance 120 / 120 -1737.5 / -1737.5 Weight 45 kg Intake: IV 262.5 / 262.5 Vancomycin Inj 1,250 MG In NS 262.5 / 262.5 Inj 250 ML @ 250 mls/hr IV.SIG WITH DIALYSIS [facility] Rx#:[id number] Oral 120 / 120 Output: Urine 0 / 0 Hemodialysis Amount 1999 Other: Date of Last Bowel Movement 09/29/18 09/29/18 # Bowel Movements 1 Results Procedures completed during hospitalization: Intubation, extubation x2 Labs on day of discharge: Labs from last 24 hours 09/29/18 09/29/18 09/29/18 16:54 12:14 05:35 WBC RBC Hgb Hct MCV MCH MCHC RDW Plt Count MPV Sodium 139 Potassium 4.6 Chloride 98 Carbon Dioxide 29.2 Anion Gap 12 BUN 55 H Creatinine 4.77 H Estimated GFR 11 L POC Glucose 111 H 80 Random Glucose 137 H Calcium 9.3 Phosphorus 5.3 H Magnesium 2.7 H Total Bilirubin 0.8 AST 502 H ALT 281 H Alkaline Phosphatase 411 H Total Protein 9.0 H D Albumin 2.1 L 09/29/18 09/29/18 09/29/18 05:35 05:12 00:22 WBC 15.3 H RBC 3.45 L Hgb 9.1 L Hct 29.0 L MCV 84.2 MCH 26.5 L MCHC 31.4 L RDW 17.8 H Plt Count 493 H MPV 9.8 Sodium Potassium Chloride Carbon Dioxide Anion Gap BUN Creatinine Estimated GFR POC Glucose 153 H 158 H Random Glucose Calcium Phosphorus Magnesium Total Bilirubin AST ALT Alkaline Phosphatase Total Protein Albumin Preliminary micro results at discharge 09/09/18 11:20 Fungal Culture - Preliminary Wound - Arm No growth in 2 weeks 09/09/18 11:20 Mycobacterial Culture - Preliminary Wound - Arm No growth in 2 weeks - Impressions ITS Impressions Abdomen/Pelvis CT 09/06/18 11:10 CONCLUSION: 1. Moderate stool in the rectum. No dilated loops of bowel to suggest obstruction. 2. Persistent large solid mass arising from the superior pole the right kidney measuring up to 6.2 cm. This is a renal cell carcinoma until proven otherwise. 3. End-stage appearing kidneys bilaterally. 4. Prominent diffuse vascular calcifications. Arterial Ultrasound 09/10/18 00:00 CONCLUSION: 1. Right iliofemoral and femoral popliteal bypass grafts appear to be occluded. 2. Occlusion of the [place] superficial femoral and popliteal arteries. Proximal trifurcation vessels also appear to be occluded. 3. Monophasic signal in the right external iliac, common femoral and profunda femoral arteries. 4. CTA abdomen and runoff could be performed for anatomic characterization if clinically warranted. Extremity Arterial Study 09/10/18 00:00 CONCLUSION: 1. Findings discerning for significant right lower extremity ischemia and likely occlusion of the right femoral to popliteal bypass graft with nearly flat waveforms and unobtainable pressures. 2. Status post left BKA. Tibia/Fibula X-Ray 09/13/18 00:00 CONCLUSION: 1. Status post below the knee amputation. 2. No evidence to suggest osteomyelitis. 3. Possible soft tissue erosion at the base of the amputation. Head CT 09/13/18 06:22 CONCLUSION: 1. No acute intracranial abnormality. 2. Progressive right maxillary sinus mucosal disease. . Head MRI 09/14/18 00:00 CONCLUSION: Chronic small vessel ischemic and atrophic changes. Catheter Placement 09/21/18 00:00 CONCLUSION: 1. Uncomplicated line placement as above. 2. Please note patient's right internal jugular vein is occluded. Chest X-Ray 09/21/18 06:00 CONCLUSION: No significant change. Mild diffuse airspace opacities persist. Upper Extremity Ultrasound 09/28/18 00:00 CONCLUSION: 1. Nondescript soft tissue swelling/edema. Discharge Plan - Discharge Disposition Patient Disposition: 51 Hospice/Med Facility - Discharge Condition Condition: Stable - Discharge Order Discharge Orders: Discharge Order (Routine); Ordered 09/29/18 Ordered By: Mauricio Pacheco - Physicians Team Primary Care Provider: Primary Care Physici,No Attending Provider: Mauricio Pacheco Other Providers: Nazario Ahumada MD ; Kirit Riojas MD ; Laura Dowd MD ; Paty Yates ; Everardo Doll MD ; Ella Choudhary MD ; Jorge Hampton MD ; Don Ramirez MD
== END 2018-09-29 20:54 | disposition hospice, inpatient (51) ==
LOC: NEPC 11:00 → NEDA 12:21 → HIMC 13:30 → N04 09-12 15:50 → HIMC 09-13 04:35 → HCIS 09-29 13:48
PROVIDERS: ADMIT Family Medicine; ATTEND Family Medicine